=== PATIENT | female | born 1945 | race Caucasian/White ===

== ENCOUNTER 2018-04-30 15:01 | Outpatient (REF) | payer MEDICARE, BC, SELFPAY ==
[2018-04-30 21:20] LABS: Abs Immature Grans 0.12 k/cumm (0.0-0.09); Absolute Basophil Count 0.05 k/cumm (0.0-0.2); Absolute Eosinophil Count 0.36 k/cumm (0.0-0.7); Absolute Lymphocyte Count 2.19 k/cumm (1.2-3.4); Absolute Monocyte Count 0.64 k/cumm (0.11-0.7); Absolute Neutrophil Count 4.37 k/cumm (1.2-6.7); Basophils % 0.6; Eosinophils % 4.7; HCT 42.6 % (36.0-46.0); HGB 13.8 g/dL (12.0-15.5); Immature Grans % 1.6; Lymphocytes % 28.3; Mean Corp. HGB Concentration 32.4 g/dL (32.0-36.0); Mean Corpuscular Hemoglobin 31.7 pg (27.0-33.0); Mean Corpuscular Volume 97.9 fL (80-95); Mean Platelet Volume 10.2 fL (8.0-11.0); Monocytes % 8.3; Neutrophils % 56.5; Platelet Count 215 x1000/uL (130-400); RBC 4.35 m/cumm (4.00-5.20); RBC Distribution Width 14.4 % (11.7-14.6); White Blood Cell Count 7.73 k/cumm (4.4-10.8)
[2018-04-30 21:28] LABS: Anion Gap 9.4 mmol/L (3-11); BUN 23 mg/dL (7-18); CO2 27.6 mmol/L (21.0-32.0); CREATININE 0.99 mg/dL (0.55-1.02); Calcium 9.6 mg/dL (8.5-10.1); Chloride 103 mmol/L (98-107); Estimated GFR 54.83 (mL/min/1.73m2); Glucose 94 mg/dL (70-100); Potassium 4.8 mmol/L (3.5-5.1); Sodium 140 mmol/L (136-145)
== END 2018-04-30 15:21 ==
LOC: NCHCN 15:01
PROVIDERS: PCP Family Medicine; Visit Provider Specialist/Technologist Athletic Trainer
DX: E03.9 Hypothyroidism, unspecified (principal); Z51.81 Encounter for therapeutic drug level monitoring; Z01.818 Encounter for other preprocedural examination
CPT/HCPCS: 80048; 85025

== ENCOUNTER 2018-05-08 02:09 | Outpatient (CLI) | payer MEDICARE, BC, SELFPAY ==
--- NOTE | 2018-05-08 | PFT_ITS ---
PULMONARY FUNCTION TEST REPORT Please see scanned documents for further detail Patient - Shiloh Anderson DATE OF - 41 DATE OF SERVICE - May 08, 2018 REQUESTING PROVIDER - Mario Kline . INTERPRETATION OF STUDY Spirometry shows no evidence of obstructive airways disease. No bronchodilator response. LUNG VOLUMES - Lung volumes show no evidence of restriction. DIFFUSION CAPACITY- Normal. AIRWAY RESISTANCE - Normal. IMPRESSION Normal pulmonary function study. Clinical correlation recommended. For comparison purposes, this study was compared to previous one from 10/30/2015 and , the patient has a stable FVC and basically stable, mildly improved FEV1 of a total of 70 cc. Clinical correlation recommended. Luda Dutta M.D. ONEL/ DT - 05/11/2018 SEE SCANNED DOCUMENT IN THE EMR FOR DATA AND GRAPHS
[2018-05-08] MEDS: Albuterol HFA 18 GM 200 PUFF INH IH (09:57)
[2018-05-08] MEDS: Inhaler, Assist Device 1 EACH MC (09:58)
== END 2018-05-08 02:29 ==
PROVIDERS: PCP Family Medicine; Visit Provider Specialist/Technologist Athletic Trainer
DX: J44.9 Chronic obstructive pulmonary disease, unspecified (principal)
CPT/HCPCS: 94060; 94150; 94726; 94729

== ENCOUNTER 2018-05-12 15:56 | Outpatient (REF) | payer MEDICARE, BC, SELFPAY | END 2018-05-12 16:16 | LOC: NCHCN 15:56 | PROVIDERS: PCP Family Medicine; Visit Provider Family Medicine | DX: L03.039 Cellulitis of unspecified toe (principal) | CPT/HCPCS: 87077; 87070; 87186; 87205 ==

== ENCOUNTER 2018-10-01 10:30 | Outpatient (CLI) | payer MEDICARE, BC, SELFPAY ==
[2018-10-01 13:25] LABS: Iron 67 ug/dL (50-175); Total Iron Binding Capacity 365 ug/dL (250-450); Transferrin Sat 18 % (15-50)
[2018-10-01 13:38] LABS: ALT 37 U/L (12-78); AST 31 U/L (15-37); Alkaline Phosphatase 101 U/L (46-116); Anion Gap 7.3 mmol/L (3-11); BUN 23 mg/dL (7-18); Bilirubin, Total 0.4 mg/dL (0.2-1.0); CO2 30.7 mmol/L (21.0-32.0); CREATININE 1.02 mg/dL (0.55-1.02); Calcium 9.6 mg/dL (8.5-10.1); Chloride 102 mmol/L (98-107); Estimated GFR 52.83 (mL/min/1.73m2); Ferritin 69 ng/mL (8-388); Glucose 92 mg/dL (70-100); Potassium 4.6 mmol/L (3.5-5.1); Sodium 140 mmol/L (136-145); TSH 2.52 uIU/mL (0.358-3.74); Total Protein 7.4 g/dL (6.4-8.2)
[2018-10-01 13:48] LABS: Bilirubin, Direct 0.09 mg/dL (0.00-0.20)
[2018-10-02 14:13] LABS: FREE T4 1.17 ng/dL (0.76-1.46)
== END 2018-10-01 10:50 ==
PROVIDERS: PCP Family Medicine; Visit Provider Internal Medicine
DX: G47.61 Periodic limb movement disorder (principal); E03.9 Hypothyroidism, unspecified; D64.9 Anemia, unspecified
CPT/HCPCS: 36415; 80048; 80076; 82728; 83540; 83550; 84439; 84443

== ENCOUNTER 2018-10-23 00:55 | Outpatient (CLI) | payer MEDICARE, BC, SELFPAY ==
--- NOTE | 2018-10-23 13:45 | DI.CTLCSR_ITS ---
SYMPTOMS/DIAGNOSIS: TOBACCO USE, F17.20, Z72.0 CT SCAN OF THE CHEST: CT scan of the chest was performed according to the lung cancer screening protocol. Comparison examination is 10/22/17. There is artifact from the patient's left shoulder replacement. There is atherosclerosis of the thoracic aorta. No aneurysmal dilatation is seen. The heart size is within normal limits. Coronary artery calcifications are present. No significant thoracic adenopathy is seen on this noncontrast examination. No pleural effusion or pneumothorax is identified. No pulmonary nodules are seen. No focal consolidating infiltrates are present. The tracheobronchial tree is unremarkable. Chronic changes are seen in the thoracic spine. 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 IMPRESSION: No pulmonary nodules. Lung-RAD Category: 1- Negative Lung-RAD Management of Findings: Continue annual LDCT screening in 12 months
== END 2018-10-23 01:15 ==
PROVIDERS: PCP Family Medicine; Visit Provider Internal Medicine
DX: Z87.891 Personal history of nicotine dependence (principal); Z12.2 Encounter for screening for malignant neoplasm of respiratory organs
CPT/HCPCS: G0297

== ENCOUNTER 2019-03-12 15:19 | Outpatient (REF) | payer MEDICARE, BC, SELFPAY ==
[2019-03-12 19:11] LABS: HCT 45.6 % (36.0-46.0); HGB 14.7 g/dL (12.0-15.5); Mean Corp. HGB Concentration 32.2 g/dL (32.0-36.0); Mean Corpuscular Hemoglobin 31.1 pg (27.0-33.0); Mean Corpuscular Volume 96.6 fL (80-95); Mean Platelet Volume 10.3 fL (8.0-11.0); Platelet Count 262 x1000/uL (130-400); RBC 4.72 m/cumm (4.00-5.20); RBC Distribution Width 14.3 % (11.7-14.6); White Blood Cell Count 7.18 k/cumm (4.4-10.8)
[2019-03-12 19:28] LABS: ALT 60 U/L (12-78); AST 58 U/L (15-37); Alkaline Phosphatase 93 U/L (46-116); BUN 18 mg/dL (7-18); Bilirubin, Total 0.5 mg/dL (0.2-1.0); CREATININE 1.26 mg/dL (0.55-1.02); Calcium 9.4 mg/dL (8.5-10.1); Chloride 102 mmol/L (98-107); Glucose 93 mg/dL (70-100); Potassium 4.6 mmol/L (3.5-5.1); Sodium 138 mmol/L (136-145); TSH (W/Ref FT4) 2.15 uIU/mL (0.36-3.74); Total Protein 7.7 g/dL (6.4-8.2)
[2019-03-12 19:39] LABS: Bacteria Negative HPF (Negative); Crystals Rare Calcium Oxalate HPF (Negative); Epithelial Cells Negative HPF (Negative); Mucus Negative (Negative); RBC 0-2 (0-2); WBC 0-2 HPF (0-5)
[2019-03-12 19:41] LABS: C & S Indicated? No
== END 2019-03-12 15:39 ==
LOC: NCHCN 15:19
PROVIDERS: PCP Family Medicine; Visit Provider Specialist/Technologist Athletic Trainer
DX: E03.9 Hypothyroidism, unspecified (principal); I10 Essential (primary) hypertension; Z51.81 Encounter for therapeutic drug level monitoring; R35.0 Frequency of micturition
CPT/HCPCS: 80053; 85027; 81015; 84443

== ENCOUNTER → 2019-04-02 11:13 | Outpatient (BNVA) | payer MEDICARE, BC, SELFPAY | PROVIDERS: PCP Family Medicine; Visit Provider Urology | DX: N39.0 Urinary tract infection, site not specified (principal); N39.46 Mixed incontinence; I12.9 Hypertensive chronic kidney disease with stage 1 through stage 4 chronic kidney disease, or unspecified chronic kidney disease; N18.3 Chronic kidney disease, stage 3 (moderate); J44.9 Chronic obstructive pulmonary disease, unspecified; F17.210 Nicotine dependence, cigarettes, uncomplicated | CPT/HCPCS: 99214 ==

== ENCOUNTER 2019-07-04 10:37 | Outpatient (REF) | payer MEDICARE, BC, SELFPAY ==
[2019-07-04 11:23] LABS: Abs Immature Grans 0.05 k/cumm (0.0-0.09); Absolute Basophil Count 0.02 k/cumm (0.0-0.2); Absolute Eosinophil Count 0.22 k/cumm (0.0-0.7); Absolute Lymphocyte Count 1.51 k/cumm (1.2-3.4); Absolute Monocyte Count 0.61 k/cumm (0.11-0.7); Absolute Neutrophil Count 3.46 k/cumm (1.2-6.7); Basophils % 0.3; Eosinophils % 3.7; HCT 35.6 % (36.0-46.0); HGB 11.4 g/dL (12.0-15.5); Immature Grans % 0.9; Lymphocytes % 25.7; Mean Corpuscular Hemoglobin 31.4 pg (27.0-33.0); Mean Corpuscular Volume 98.1 fL (80-95); Mean Platelet Volume 9.3 fL (8.0-11.0); Monocytes % 10.4; Platelet Count 275 x1000/uL (130-400); RBC 3.63 m/cumm (4.00-5.20); RBC Distribution Width 13.8 % (11.7-14.6); White Blood Cell Count 5.87 k/cumm (4.4-10.8)
[2019-07-04 11:35] LABS: ALT 42 U/L (14-59); AST 55 U/L (15-37); Albumin 3.3 g/dL (3.4-5.0); Alkaline Phosphatase 61 U/L (46-116); BUN 18 mg/dL (7-18); Bilirubin, Total 0.6 mg/dL (0.2-1.0); C-Reactive Protein 8.82 mg/dL (0.0-0.3); Calcium 9.2 mg/dL (8.5-10.1); Chloride 102 mmol/L (98-107); Estimated GFR 54.05 (mL/min/1.73m2); Glucose 172 mg/dL (74-106); Potassium 4.2 mmol/L (3.5-5.1); Sodium 137 mmol/L (136-145); Total Protein 6.9 g/dL (6.4-8.2)
== END 2019-07-04 10:57 ==
LOC: LBN 10:37
PROVIDERS: PCP Family Medicine; Visit Provider Nurse Practitioner Adult Health
DX: D50.9 Iron deficiency anemia, unspecified (principal); Z47.1 Aftercare following joint replacement surgery
CPT/HCPCS: 80053; 85025; 86140

== ENCOUNTER 2019-08-21 14:08 | Emergency (ER) | payer MEDICARE, BC, SELFPAY ==
[2019-08-21 14:15] VITALS: BP 156/50; PULSE 80; RESP 16; TEMP 36.7; O2SAT 95
[2019-08-21 15:44] LABS: Abs Immature Grans 0.03 k/cumm (0.0-0.09); Absolute Basophil Count 0.05 k/cumm (0.0-0.2); Absolute Eosinophil Count 0.19 k/cumm (0.0-0.7); Absolute Lymphocyte Count 2.21 k/cumm (1.2-3.4); Absolute Monocyte Count 0.44 k/cumm (0.11-0.7); Basophils % 0.8; Eosinophils % 3.2; HCT 39.3 % (36.0-46.0); HGB 12.3 g/dL (12.0-15.5); Immature Grans % 0.5 %; Lymphocytes % 36.7; Mean Corp. HGB Concentration 31.3 g/dL (32.0-36.0); Mean Corpuscular Hemoglobin 30.2 pg (27.0-33.0); Mean Corpuscular Volume 96.6 fL (80-95); Mean Platelet Volume 9.2 fL (8.0-11.0); Monocytes % 7.3; Neutrophils % 51.5; Platelet Count 270 x1000/uL (130-400); RBC 4.07 m/cumm (4.00-5.20); RBC Distribution Width 14.6 % (11.7-14.6); White Blood Cell Count 6.02 k/cumm (4.4-10.8)
[2019-08-21 15:55] LABS: ALT 33 U/L (14-59); AST 23 U/L (15-37); Albumin 3.4 g/dL (3.4-5.0); Alkaline Phosphatase 87 U/L (46-116); Anion Gap 7.9 mmol/L (3-11); BUN 21 mg/dL (7-18); Bilirubin, Total 0.3 mg/dL (0.2-1.0); CO2 27.1 mmol/L (21.0-32.0); CREATININE 0.97 mg/dL (0.55-1.02); Calcium 8.9 mg/dL (8.5-10.1); Chloride 103 mmol/L (98-107); Estimated GFR 55.83 (mL/min/1.73m2); Glucose 103 mg/dL (74-106); Potassium 4.4 mmol/L (3.5-5.1); Sodium 138 mmol/L (136-145); Total Protein 7.2 g/dL (6.4-8.2)
[2019-08-21 15:57] LABS: C-Reactive Protein 1.98 mg/dL (0.0-0.3)
--- NOTE | 2019-08-21 16:01 | W.ED.GENAD ---
Discharge Plan Disposition Patient Disposition: HOME Condition: Stable Discharge Details Chief Complaint: Cellulitis Clinical Impression: Postoperative pain of left knee Primary Care Provider: Wilma Nance V ED Provider: Scottie Sharpe Home Meds and New Rx's Prescriptions: Continued losartan 25 mg tablet 25 mg PO DAILY RF: 0 bupropion HCl [Wellbutrin SR] 100 mg tablet sustained-release 12 hr 100 mg PO BID RF: 0 fluoxetine [Prozac] 20 mg capsule 20 mg PO BID RF: 0 estradiol [Estrace] 0.01 % (0.1 mg/gram) cream 2 g VG twice weekly Qty: 1 RF: 12 multivitamin [Daily-Wayne] 1 EACH tablet 1 ea PO DAILY RF: 0 folic acid 1 MG tablet 1 mg PO DAILY RF: 0 fluticasone propionate [Flonase Allergy Relief] 9.9 ML spray,suspension 9.9 ml NS DAILY RF: 0 levothyroxine 175 MCG tablet 175 mcg PO DIRECTED RF: 0 Folgard 1 EACH tablet 1 tab PO DAILY RF: 0 gabapentin 600 MG tablet 1,800 mg PO HS RF: 0 albuterol sulfate [ProAir HFA] 8.5 GM HFA aerosol inhaler 2 puff Inhalation DIRECTED PRNRF: 0 oxycodone-acetaminophen 1 EACH tablet 0 - 1 tab PO QID RF: 0 nystatin 60 GM powder 0 gm Topical BID RF: 0 Discharge Instructions Instructions: Knee Pain (ED) Additional Instructions: Remove Arcenio bandage at bedtime. May use well up and out of bed for compression and stability. I discussed your case with Dr. Sewell this evening. He requested the laboratory testing that you had performed. He will see you in the [facility] office on Friday. Please call the office Friday morning for an appointment time. Return to the emergency department for any acute concerns. Discharge Data Discharge Date/Time-TO BE ENTERED AT DEPARTURE: 08/21/19 16:12 Medical Decision Making 74-year-old female whose approximately 6 weeks status post left knee total arthroplasty with Dr. Israel at the [facility]. She states she had a postoperative infection it was treated with Bactrim and Keflex. She arrives with a concern for recurrent left knee infection. She has not had a fever but has developed warmth and some mild pain. Patient has an unremarkable CBC, her white count is 6.0, hematocrit 39, platelets 270. Chemistries unremarkable and CRP is 1.9. I discussed the case with Dr. Israel. He said he felt this was likely normal healing and unless patient had impressively elevated inflammatory markers would opt not to treat with antibiotics but rather will see her in the office for short-term follow-up on Friday. Discussed the finding with the patient and she will follow-up with the [facility] on Friday. HPI General Mode of arrival: ambulatory. Date/Time Provider Initiated Documentation: 08/21/19 14:08. Limitations to Documentation: no limitations. Information obtained by: patient. History of Present Illness 74 year old F presents to the emergency department with the chief complaint of Left knee pain and redness., described as similar to prior episodes, and is localized to the left and lower extremity. Patient reports no radiation. Patient started experiencing this hour(s) and it has been constant. No relieving factors improve symptom(s), No exacerbating factors reported . Patient notes denies fever/chills. Related Data Home Medications Medication Instructions Recorded Confirmed levothyroxine 175 mcg PO DIRECTED 09/17/14 08/21/19 Folgard 1 tab PO DAILY 01/26/15 08/21/19 albuterol sulfate [ProAir HFA] 2 puff INHALATION DIRECTED PRN 03/13/16 08/21/19 gabapentin 1,800 mg PO HS 03/13/16 08/21/19 oxycodone-acetaminophen 0 - 1 tab PO QID 03/13/16 08/21/19 nystatin 0 gm TOPICAL BID 01/10/17 08/21/19 fluticasone propionate [Flonase 9.9 ml NS DAILY 08/15/17 08/21/19 Allergy Relief] folic acid 1 mg PO DAILY tab-cap 08/15/17 08/21/19 multivitamin [Daily-Wayne] 1 ea PO DAILY 08/15/17 08/21/19 bupropion HCl 100 mg tablet,12 hr 100 mg PO BID 04/02/19 08/21/19 sustained-release estradiol 2 g VG twice weekly #1 tube 04/02/19 08/21/19 fluoxetine 20 mg capsule 20 mg PO BID 04/02/19 08/21/19 losartan 25 mg tablet 25 mg PO DAILY 04/02/19 08/21/19 Previous Rx's Medication Instructions Recorded nystatin 0 gm TOPICAL BID 01/10/17 estradiol 2 g VG twice weekly #1 tube 04/02/19 Allergies Allergy/AdvReac Type Severity Reaction Status Date / Time No Known Allergies Allergy Unverified 08/21/19 14:17 General Stated Complaint: Cellulitis SACHI: 3 Review of Systems Narrative: States she had a infection postoperatively. She is otherwise been well. 6 systems reviewed and otherwise negative. [facility] Medical History Allergic rhinitis Bilateral cataracts Cervicalgia CKD (chronic kidney disease) Colonic polyp COPD (chronic obstructive pulmonary disease) Diverticulosis DJD (degenerative joint disease) Fibromyalgia Foot pain Hamstring tendonitis HTN (hypertension) Hypothyroidism Iritis Lumbar stenosis Major depression Mixed stress and urge urinary incontinence (Acute) Mobitz II Obesity SUGEY (obstructive sleep apnea) Rotator cuff syndrome Spinal stenosis Tobacco use Trigger finger Urinary incontinence Social History Smoking/Tobacco Use Status: Current every day Alcohol Intake: current Alcohol Intake frequency: 3 or more drinks per day Drug use: Never Do you feel safe in your relationship?: Yes Exam Narrative Exam Narrative: GEN: awake, alert, oriented 3. Pleasant, well groomed, interactive. HEAD: Normocephalic, atraumatic ENT: Mucous membranes moist, oropharynx unremarkable, External ear exam unremarkable EYES: PERRL, EOMI NECK: Full ROM, no JIMMIE, no menigismus CHEST/RESP: Nontender, clear to auscultation bilateral, no wheeze/rhonchi/rales CARDIOVASCULAR: RRR, no murmur, rub vanessa. 2+ Rad pulse bilateral ABDOMEN: Soft, nontender, no mass. +Bowel sounds EXT: Bilateral healing surgical incisions of the anterior knees. Both knees have full range of motion. The left knee is slightly erythematous and warm to the touch but not particularly tender. Neuro: Grossly normal neurologic exam, conversant, interactive. Psych: Speech fluent, thoughts congruent, affect normal Course Vital Signs Vital signs: Vital Signs Temperature 36.7 C 08/21/19 14:15 Pulse 80 08/21/19 14:15 Respiratory Rate 16 08/21/19 14:15 Blood Pressure 156/50 H 08/21/19 14:15 Pulse Oximetry 95 08/21/19 14:15 Temperature 36.7 C 08/21/19 14:15 Temperature Source Oral 08/21/19 14:15 Pulse 80 08/21/19 14:15 Respiratory Rate 16 08/21/19 14:15 Blood Pressure 156/50 H 08/21/19 14:15 Pulse Oximetry 95 08/21/19 14:15 Oxygen Delivery Method Room Air 08/21/19 14:15 Oxygen Flow Rate 0 08/21/19 14:15 Lab/Test Results Lab/Test Results: Laboratory Tests Range/Units 08/21/19 08/21/19 15:15 15:15 WBC (4.4-10.8) k/cumm 6.02 RBC (4.00-5.20) m/cumm 4.07 Hgb (12.0-15.5) g/dL 12.3 Hct (36.0-46.0) % 39.3 MCV (80-95) fL 96.6 H MCH (27.0-33.0) pg 30.2 MCHC (32.0-36.0) g/dL 31.3 L RDW (11.7-14.6) % 14.6 Plt Count (130-400) x1000/uL 270 MPV (8.0-11.0) fL 9.2 Immature Gran % % 0.5 Neutrophils % 51.5 Lymphocytes % 36.7 Monocytes % 7.3 Eosinophils % 3.2 Basophils % 0.8 Absolute Neutrophils (1.2-6.7) k/cumm 3.10 Absolute Lymphocytes (1.2-3.4) k/cumm 2.21 Absolute Monocytes (0.11-0.7) k/cumm 0.44 Absolute Eosinophils (0.0-0.7) k/cumm 0.19 Absolute Basophils (0.0-0.2) k/cumm 0.05 Sodium (136-145) mmol/L 138 Potassium (3.5-5.1) mmol/L 4.4 Chloride (98-107) mmol/L 103 Carbon Dioxide (21.0-32.0) mmol/L 27.1 Anion Gap (3-11) mmol/L 7.9 BUN (7-18) mg/dL 21 H Creatinine (0.55-1.02) mg/dL 0.97 Estimated GFR/1.73 m2 (mL/min/1.73m2) 55.83 Glucose (74-106) mg/dL 103 Calcium (8.5-10.1) mg/dL 8.9 Total Bilirubin (0.2-1.0) mg/dL 0.3 AST (15-37) U/L 23 ALT (14-59) U/L 33 Alkaline Phosphatase (46-116) U/L 87 C-Reactive Protein (0.0-0.3) mg/dL 1.98 H Total Protein (6.4-8.2) g/dL 7.2 Albumin (3.4-5.0) g/dL 3.4
== END 2019-08-21 16:12 | disposition home or self-care (01) ==
PROVIDERS: Emergency Provider Emergency Medicine; PCP Family Medicine
DX: M25.562 Pain in left knee (principal); G89.18 Other acute postprocedural pain; Z96.652 Presence of left artificial knee joint; I12.9 Hypertensive chronic kidney disease with stage 1 through stage 4 chronic kidney disease, or unspecified chronic kidney disease; N18.9 Chronic kidney disease, unspecified; J44.9 Chronic obstructive pulmonary disease, unspecified; F17.210 Nicotine dependence, cigarettes, uncomplicated
CPT/HCPCS: 36415; 80053; 99282; 85025; 86140

== ENCOUNTER 2019-11-23 14:33 | Outpatient (REF) | payer MEDICARE, BC, SELFPAY ==
[2019-11-23 19:51] LABS: Anion Gap 6.3 mmol/L (3-11); BUN 22 mg/dL (7-18); C-Reactive Protein 1.05 mg/dL (0.0-0.3); CO2 28.7 mmol/L (21.0-32.0); CREATININE 1.03 mg/dL (0.55-1.02); Calcium 9.5 mg/dL (8.5-10.1); Chloride 100 mmol/L (98-107); Creatine Kinase 167 U/L (26-192); Glucose 95 mg/dL (74-106); Potassium 4.9 mmol/L (3.5-5.1); Sodium 135 mmol/L (136-145); TSH (W/Ref FT4) 2.01 uIU/mL (0.36-3.74)
[2019-11-23 20:01] LABS: ESR 16 mm/hr (0-30); Hemoglobin A1C 5.9 % (3.8-5.6)
== END 2019-11-23 14:53 ==
LOC: NCHCN 14:33
PROVIDERS: PCP Family Medicine; Visit Provider Family Medicine
DX: M79.10 Myalgia, unspecified site (principal); G56.00 Carpal tunnel syndrome, unspecified upper limb; R73.09 Other abnormal glucose
CPT/HCPCS: 80048; 82550; 85652; 83036; 84443; 86140

== ENCOUNTER 2019-12-16 02:11 | Outpatient (CLI) | payer MEDICARE, BC, SELFPAY ==
--- NOTE | 2019-12-16 14:22 | DI.CTLCSR_ITS ---
EXAM: CT CHEST LUNG CANCER SCREEN CLINICAL HISTORY: The patient reportedly has a History of Smoking 30 pack years and presently smokes or has quit the past 15 years. TECHNIQUE: Imaging Protocol: Axial computed tomography images with coronal and sagittal reformatted images were created and reviewed COMPARISON: CT CT CHEST LUNG CANCER SCREEN from 10/23/2018 FINDINGS: Tracheobronchial tree: Patent where visualized. Mediastinum and Lesly: No dominant adenopathy or fluid collection. Pulmonary parenchyma: No consolidation or dominant measurable mass. No architectural distortion. Lung Nodules: None. Pleura: No effusion or pneumothorax. Heart: The heart is not dilated. Mild coronary artery calcification. No significant pericardial effu martin. Aorta: Thoracic aorta non-dilated.Atherosclerosis. Upper abdomen: Unremarkable. Bones: There is artifact from posterior spinal surgery in the lumbar spine. There is artifact from t he patient's left shoulder replacement. Soft Tissues: Unremarkable. IMPRESSION: No pulmonary nodules. Lung RADS Cat 1 - Negative: No nodules and definitely benign nodules Lung-RADS 1.0 CATEGORIES: Category 0 - Prior chest CT exam(s) being located for comparison. Category 1 - Annual screening in 12 months. No nodules or definitely benign nodules. Category 2 - Annual screening in 12 months. Benign appearance. Nodules with low likelihood of becomin g active cancer. Category 3 - 6-month follow-up. Probably benign. Short-term follow-up suggested. Nodules with low lik elihood of becoming active cancer. Category 4A - 3-month follow-up and CT/PET if >8 mm in size. Suspicious finding. Findings which requi re additional testing. Category 4B - Findings which require additional testing and tissue sampling. Suspicious finding. C Added to Any of the Above - History of prior lung cancer screening. S Added to Any of the Above - Significant unexpected other finding. RADIATION DOSE DELIVERED: 99.73mGy.cm Total DLP DATA REPOSITORY: All CT scans at this facility are submitted to the National Radiology Data Registry (NRDR) Dose Index Registry (DIR) with the [employer] (A[employer]). RADIATION OPTIMIZATION: All CT scans at this facility use at least one of these dose optimization te chniques: automated exposure control; mA and/or kV adjustment per patient size (includes targeted exa ms where dose is matched to clinical indication); or iterative reconstruction.
== END 2019-12-16 02:31 ==
PROVIDERS: PCP Family Medicine; Visit Provider Internal Medicine
DX: Z12.2 Encounter for screening for malignant neoplasm of respiratory organs (principal); F17.210 Nicotine dependence, cigarettes, uncomplicated
CPT/HCPCS: G0297

== ENCOUNTER → 2020-03-21 12:49 | Outpatient (BNVA) | payer MEDICARE, BC, SELFPAY | PROVIDERS: PCP Family Medicine; Referring Provider Family Medicine; Visit Provider Nurse Practitioner Adult Health | DX: G56.03 Carpal tunnel syndrome, bilateral upper limbs (principal); G56.22 Lesion of ulnar nerve, left upper limb; J44.9 Chronic obstructive pulmonary disease, unspecified; I12.9 Hypertensive chronic kidney disease with stage 1 through stage 4 chronic kidney disease, or unspecified chronic kidney disease; N18.9 Chronic kidney disease, unspecified; F17.200 Nicotine dependence, unspecified, uncomplicated | CPT/HCPCS: 95911; 99203; 99214 ==

== ENCOUNTER → 2020-06-05 10:25 | Outpatient (BNVA) | payer MEDICARE, BC, SELFPAY | PROVIDERS: PCP Family Medicine; Referring Provider Family Medicine; Visit Provider Nurse Practitioner Gerontology | DX: N39.46 Mixed incontinence (principal); I12.9 Hypertensive chronic kidney disease with stage 1 through stage 4 chronic kidney disease, or unspecified chronic kidney disease; N18.9 Chronic kidney disease, unspecified | CPT/HCPCS: 81003; 99213 ==

== ENCOUNTER 2020-07-04 14:09 | Emergency (ER) | payer MEDICARE, BC, SELFPAY ==
[2020-07-04 14:15] VITALS: BP 142/79; PULSE 74; RESP 20; TEMP 36.2; O2SAT 96
--- NOTE | 2020-07-04 14:15 | DI.RAD_ITS ---
EXAM: XR FOREARM RT CLINICAL HISTORY: fall, R/O Fracture TECHNIQUE: COMPARISON: CR XR WRIST RT COMPLETE from 07/04/2020 FINDINGS: Two views were obtained. There is fracture of the distal ulna involving the metaphyseal diaphyseal r egion with no displacement. No additional fracture seen. There are severe degenerative changes of t he wrist. IMPRESSION: RADIATION DOSE DELIVERED: Total DLP
--- NOTE | 2020-07-04 14:35 | ED.GENADUL_ITS ---
Discharge Plan Disposition Patient Disposition: HOME Condition: Stable Discharge Details Clinical Impression: Distal end of ulna fracture, closed Primary Care Provider: Wilma Nance V ED Provider: Tiesha Hart Home Meds and New Rx's Prescriptions: Continued estradiol [Estrace] 0.01 % (0.1 mg/gram) cream 2 g VG twice weekly Qty: 1 RF: 12 multivitamin [Daily-Wayne] 1 EACH tablet 1 ea PO DAILY RF: 0 folic acid 1 MG tablet 1 mg PO DAILY RF: 0 fluticasone propionate [Flonase Allergy Relief] 9.9 ML spray,suspension 9.9 ml NS DAILY RF: 0 cyclobenzaprine 10 mg tablet 10 mg PO TID RF: 0 celecoxib [Celebrex] 200 mg capsule 200 mg PO BID RF: 0 (DME) cane Device See Rx Instructions .ROUTE .MEDSUPPLY Qty: 1 RF: 0 ropinirole 1 mg tablet 1 mg PO QHS RF: 0 fentanyl 25 mcg/hr patch 72 hour 1 patch TD Q72H RF: 0 Narcan 4 mg/actuation spray,non-aerosol 4 mg LAWRENCE Q3M PRNRF: 0 losartan 25 mg tablet 50 mg PO DAILY RF: 0 levothyroxine 175 MCG tablet 175 mcg PO DIRECTED RF: 0 Folgard 1 EACH tablet 1 tab PO DAILY RF: 0 gabapentin 600 MG tablet 1,800 mg PO HS RF: 0 albuterol sulfate [ProAir HFA] 8.5 GM HFA aerosol inhaler 2 puff Inhalation DIRECTED PRNRF: 0 oxycodone-acetaminophen 1 EACH tablet 0 - 1 tab PO QID RF: 0 bupropion HCl 150 mg tablet sustained-release 12 hr 150 mg PO DAILY RF: 0 fluoxetine 20 mg capsule 20 mg PO DAILY RF: 0 nystatin 60 GM powder 0 gm Topical BID RF: 0 Discharge Instructions Instructions: Arm Fracture in Adults (ED) Additional Instructions: Wear splint as much as possible until follow-up with orthopedics. Rest, ice, compression, elevation. Follow-up with Ortho within the next 1 to 2 weeks. Please take Tylenol or Ibuprofen with food every 4-6 hours as needed for pain and swelling. Referrals: Danial Duran MD [ [facility] STAFF PHYSICIAN] - Medical Decision Making 74-year-old female presents to the ED with chief complaint of right forearm pain. Patient states that she and fell forward hitting her right forearm onto a 2 x 4. She did not hit her head no loss of consciousness, no neck or back pain. No other injuries. She does have recent surgery from carpal tunnel release if she has sutures in place to her right palm which wound is well approximated, no swelling, no redness or any injury to her surgical incision noted. CMS is intact distally to injury, no shoulder tenderness. Patient is alert and oriented x4. Patient does have a past medical history of obesity, restless legs, hypothyroidism, hypertension, first-degree AV block, degenerative joint disease, diverticulosis, chronic kidney disease, asthma. EXAM: XR WRIST RT COMPLETE CLINICAL HISTORY: s/p fall, fx forearm, r/o wrist fx TECHNIQUE: COMPARISON: No exams were available for comparison FINDINGS: Four views were obtained. There is a nondisplaced fracture of the distal ulna. There are severe degenerative changes at the greater multangular 1st metacarpal joint with marked loss of the cartilaginous joint space, subchondral sclerosis of the adjacent bones, assess subluxation of the base of the 1st metacarpal, and very prominent hypertrophic changes. Otherwise bony alignment of the carpus is unremarkable with no additional fracture seen Patient placed in a thumb spica splint and sling instructed to follow-up with orthopedics and placed on the follow-up list. Instructed on rest ice compression elevation. Patient verbalized understanding. HPI General Mode of arrival: ambulatory . Date/Time Provider Initiated Documentation: 07/04/20 14:10 . Limitations to Documentation: no limitations . Information obtained by: patient . HPI Narrative: 74-year-old female presents to the ED with chief complaint of right forearm pain. Patient states that she and fell forward hitting her right forearm onto a 2 x 4. She did not hit her head no loss of consciousness, no neck or back pain. No other injuries. She does have recent surgery from carpal tunnel release if she has sutures in place to her right palm which wound is well approximated, no swelling, no redness or any injury to her surgical incision noted. CMS is intact distally to injury, no shoulder tenderness. Patient is alert and oriented x4. Patient does have a past medical history of obesity, restless legs, hypothyroidism, hypertension, first-degree AV block, degenerative joint disease, diverticulosis, chronic kidney disease, asthma. Related Data Home Medications Medication Instructions Recorded Confirmed levothyroxine 175 mcg PO DIRECTED 09/17/14 07/04/20 Folgard 1 tab PO DAILY 01/26/15 07/04/20 albuterol sulfate [ProAir HFA] 2 puff INHALATION DIRECTED PRN 03/13/16 07/04/20 gabapentin 1,800 mg PO HS 03/13/16 07/04/20 oxycodone-acetaminophen 0 - 1 tab PO QID 03/13/16 07/04/20 nystatin 0 gm TOPICAL BID 01/10/17 07/04/20 fluticasone propionate [Flonase 9.9 ml NS DAILY 08/15/17 07/04/20 Allergy Relief] folic acid 1 mg PO DAILY tab-cap 08/15/17 07/04/20 multivitamin [Daily-Wayne] 1 ea PO DAILY 08/15/17 07/04/20 estradiol 2 g VG twice weekly #1 tube 04/02/19 07/04/20 cane #1 each 02/24/20 06/05/20 celecoxib 200 mg capsule 200 mg PO BID 02/24/20 07/04/20 cyclobenzaprine 10 mg tablet 10 mg PO TID 02/24/20 07/04/20 fentanyl 25 mcg/hr transdermal 1 patch TD Q72H 02/24/20 07/04/20 patch naloxone 4 mg/actuation nasal spray 4 mg LAWRENCE Q3M PRN 02/24/20 07/04/20 ropinirole 1 mg tablet 1 mg PO QHS 02/24/20 07/04/20 losartan 25 mg tablet 50 mg PO DAILY tab 06/20/20 07/04/20 bupropion HCl 150 mg PO DAILY 07/04/20 07/04/20 fluoxetine 20 mg PO DAILY 07/04/20 07/04/20 Previous Rx's Medication Instructions Recorded nystatin 0 gm TOPICAL BID 01/10/17 estradiol 2 g VG twice weekly #1 tube 04/02/19 cane #1 each 02/24/20 Allergies Allergy/AdvReac Type Severity Reaction Status Date / Time No Known Allergies Allergy Unverified 07/04/20 14:20 General Stated Complaint: Orthopedic SACHI: 4 Review of Systems Narrative: Constitutional: Negative for weight loss, alert and oriented, well groomed, normal body habitus, appears comfortable. HEENT: Denies trauma, headaches, blurry vision, nasal discharge, sore throat, trouble swallowing. Chest: Denies chest pain, palpitations, irregular rhythm, hypertension. Respiratory: Denies Shortness of breath, cough, hemoptysis. GI: Denies abdominal pain, nausea, vomiting, diarrhea, constipation. : Denies dysuria, hematuria, flank pain, rectal bleeding. Musculoskeletal: Complaining of right forearm pain Neuro: Denies dizziness, blurry vision, weakness, syncope, headache or facial numbness. Hematologic: Denies easy bruising, intolerance to heat or cold, hair loss. [facility] Medical History Acquired pes planus Allergic rhinitis Anxiety 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 Asthma, moderate persistent BCC (basal cell carcinoma) Bilateral carpal tunnel syndrome Bilateral cataracts Body mass index (BMI) of 40.0-44.9 in adult Cervicalgia Chronic pain CKD (chronic kidney disease) Colonic polyp Coordination problem COPD (chronic obstructive pulmonary disease) Degenerative disc disease, lumbar Diverticulosis DJD (degenerative joint disease) Edema Fibromyalgia First degree AV block Foot pain Fusion of lumbosacral spine H/O urinary frequency Hamstring tendonitis History of prediabetes HTN (hypertension) Hx of colonic polyps Hypothyroidism Iritis Knee pain, bilateral Left hip pain Lumbar stenosis Major depression Mixed stress and urge urinary incontinence Mobitz II Myalgia Obesity Onychodystrophy SUGEY on CPAP Ovarian mass Peripheral neuropathy Restless leg syndrome Rotator cuff syndrome Sacroiliac joint pain Spinal stenosis Tobacco use Trigger finger Visual acuity reduced Social History Smoking/Tobacco Use Status: Current every day Smoking risk assessment performed?: Yes Alcohol Intake: current Alcohol Intake frequency: 3 or more drinks per day Drug use: Never Housing: house Number of Children: 9 Pets and animals: Yes Pets and animals: dog(s) and horse(s) What is your relationship status?: Panel score (0-1 are the most socially isolated patients): 0 What type of physical activity do you participate in: walking Seatbelt use: always Do you feel safe in your relationship?: Yes Exam Narrative Exam Narrative: Constitutional: Alert and oriented x3. Appears stated age. Normal body habitus. Head: Normocephalic, no trauma. Eyes: Pupils PERRLA, Red reflex noted, EOM's intact. Eyelids symmetrical without lesions, discharge, or swelling. ENT: Bilateral TM's WNL, External ear normal to inspection, no mastoid TTP, swelling, or erythema, Nasal turbinates WNL, no nasal discharge. Normal dentition, Posterior pharynx WNL, no exudate. Chest: RRR, Normal S1, S2, distal pulses intact. Resp: Lungs clear to auscultation bilaterally, no wheezes, rales, or rhonchi. Musculoskeletal: Normal gait, does have tenderness palpation to the distal forearm and medial and lateral wrist. No obvious deformity noted. Radial pulses are intact. Skin: Capillary refill less than 2 sec. she does have a surgical incision site noted to her right palmar surface which is sutured no surrounding erythema or trauma noted to the incision. Neurologic: Cranial nerves II-XII intact. Alert and oriented x 3. DTR's intact. Hematologic/Lymphatic: No ecchymosis, no lymphadenopathy. Course Vital Signs Vital signs: Vital Signs Temperature 36.2 C L 07/04/20 14:15 Pulse 74 07/04/20 14:15 Respiratory Rate 20 07/04/20 14:15 Blood Pressure 142/79 H 07/04/20 14:15 Pulse Oximetry 96 07/04/20 14:15 Temperature 36.2 C L 07/04/20 14:15 Temperature Source Skin 07/04/20 14:15 Pulse 74 07/04/20 14:15 Respiratory Rate 20 07/04/20 14:15 Respiratory Effort Non-Labored 07/04/20 14:19 Blood Pressure 142/79 H 07/04/20 14:15 Blood Pressure Position Sitting 07/04/20 14:15 Pulse Oximetry 96 07/04/20 14:15 Oxygen Delivery Method Room Air 07/04/20 14:15 Oxygen Flow Rate 0 07/04/20 14:15 Pain Level 8 07/04/20 14:32
[2020-07-04 14:36] VITALS: BP 154/87; PULSE 63; RESP 18; TEMP 36.9
[2020-07-04] MEDS: oxyCODONE 5 mg/Acetaminophen 325 mg TAB 1 TAB PO (14:40)
--- NOTE | 2020-07-04 15:00 | DI.RAD_ITS ---
EXAM: XR WRIST RT COMPLETE CLINICAL HISTORY: s/p fall, fx forearm, r/o wrist fx TECHNIQUE: COMPARISON: No exams were available for comparison FINDINGS: Four views were obtained. There is a nondisplaced fracture of the distal ulna. There are severe degenerative changes at the greater multangular 1st metacarpal joint with marked los s of the cartilaginous joint space, subchondral sclerosis of the adjacent bones, assess subluxation o f the base of the 1st metacarpal, and very prominent hypertrophic changes. Otherwise bony alignment of the carpus is unremarkable with no additional fracture seen. IMPRESSION: RADIATION DOSE DELIVERED: Total DLP
[2020-07-04 16:03] VITALS: BP 150/86; PULSE 60; RESP 18; TEMP 36.9; O2SAT 96
== END 2020-07-04 15:58 | disposition home or self-care (01) ==
LOC: ER 15:39
PROVIDERS: Emergency Provider Registered Nurse Emergency; PCP Family Medicine
DX: S52.691A Other fracture of lower end of right ulna, initial encounter for closed fracture (principal); W01.198A Fall on same level from slipping, tripping and stumbling with subsequent striking against other object, initial encounter; I12.9 Hypertensive chronic kidney disease with stage 1 through stage 4 chronic kidney disease, or unspecified chronic kidney disease; N18.9 Chronic kidney disease, unspecified
CPT/HCPCS: 25560; 73090; 73110

== ENCOUNTER 2020-07-20 11:01 | Outpatient (CLI) | payer MEDICARE, BC, SELFPAY ==
--- NOTE | 2020-07-20 09:50 | DI.RAD_ITS ---
EXAM: XR WRIST RT LIMITED CLINICAL HISTORY: F/U FRACTURE. TECHNIQUE: 2D digital imaging was performed. COMPARISON: CR XR WRIST RT COMPLETE from 07/04/2020 FINDINGS: BONES: There has been no significant change in alignment of the fracture involving the distal ulna. No bony destructive lesion is seen. No new fracture or dislocation is present. JOINTS: Severe degenerative changes are again seen at the 1st CMC joint. SOFT TISSUE: Mild soft tissue swelling about the wrist persists. IMPRESSION: Stable distal right ulnar fracture. DATA REPOSITORY: RADIATION DOSE DELIVERED:
== END 2020-07-20 11:21 ==
PROVIDERS: PCP Family Medicine; Referring Provider Family Medicine; Visit Provider Student in an Organized Health Care Education/Training Program
DX: S52.691A Other fracture of lower end of right ulna, initial encounter for closed fracture (principal); S52.601G Unspecified fracture of lower end of right ulna, subsequent encounter for closed fracture with delayed healing; W01.198D Fall on same level from slipping, tripping and stumbling with subsequent striking against other object, subsequent encounter
CPT/HCPCS: 99214; 73100

== ENCOUNTER 2020-07-24 03:40 | Outpatient (CLI) | payer MEDICARE, BC, SELFPAY ==
[2020-07-25 16:49] LABS: COVID-19 RT-PCR UVMMC Result Negative (Negative)
== END 2020-07-24 04:00 ==
PROVIDERS: PCP Family Medicine; Visit Provider Student in an Organized Health Care Education/Training Program
DX: Z11.59 Encounter for screening for other viral diseases (principal); Z01.818 Encounter for other preprocedural examination
CPT/HCPCS: U0003

== ENCOUNTER 2020-07-24 14:54 | Day surgery (SDC) | payer MEDICARE, BC, SELFPAY | END 2020-07-24 15:14 | PROVIDERS: PCP Family Medicine; Visit Provider Student in an Organized Health Care Education/Training Program | DX: Z53.9 Procedure and treatment not carried out, unspecified reason (principal) ==

== ENCOUNTER 2020-07-27 06:24 | Day surgery (SDC) | payer MEDICARE, BC, SELFPAY ==
[2020-07-27] VITALS (11 sets, daily range): BP systolic 102–139; BP diastolic 61–90; PULSE 65–82; RESP 16–29; TEMP 36–36.5; O2SAT 94–96
--- NOTE | 2020-07-27 06:45 | DI.RAD_ITS ---
EXAM: XR FOREARM RT CLINICAL HISTORY: right ulna fracture. TECHNIQUE: 2D digital imaging was performed. COMPARISON: CR XR WRIST RT LIMITED from 07/20/2020 CR XR WRIST RT LIMITED from 07/20/2020 FINDINGS: Prosperous widened during open reduction internal fixation distal right ulnar fracture and images rev eal placement of a fixation plate secured by multiple screws and there 2 independent screws also evid ent at the fracture site. Total fluoroscopy time was 9 seconds. IMPRESSION: As above. DATA REPOSITORY: RADIATION DOSE DELIVERED:
--- NOTE | 2020-07-27 07:19 | PDOC.DSDIS_ITS ---
Discharge Plan Disposition Patient Disposition: HOME Condition: Good Discharge Details Reason For Visit: Right Distal Ulna Fracture Attending Provider: Danial Duran Primary Care Provider: Wilma Nance V Home Meds and New Rx's Prescriptions: New hydrocodone-acetaminophen 5-325 mg tablet 1 tab PO Q6H PRN PRN (Reason: pain) Qty: 10 RF: 0 acetaminophen 500 mg tablet 500 mg PO Q6H PRN PRN (Reason: pain) Qty: 60 RF: 3 Continued estradiol [Estrace] 0.01 % (0.1 mg/gram) cream 2 g VG twice weekly Qty: 1 RF: 12 multivitamin [Daily-Wayne] 1 EACH tablet 1 ea PO DAILY RF: 0 folic acid 1 MG tablet 1 mg PO DAILY RF: 0 fluticasone propionate [Flonase Allergy Relief] 9.9 ML spray,suspension 9.9 ml NS DAILY RF: 0 cyclobenzaprine 10 mg tablet 10 mg PO TID RF: 0 celecoxib [Celebrex] 200 mg capsule 200 mg PO BID RF: 0 (DME) cane Device See Rx Instructions .ROUTE .MEDSUPPLY Qty: 1 RF: 0 ropinirole 1 mg tablet 1 mg PO QHS RF: 0 fentanyl 25 mcg/hr patch 72 hour 1 patch TD Q72H RF: 0 Narcan 4 mg/actuation spray,non-aerosol 4 mg [place]WRENCE Q3M PRNRF: 0 losartan 25 mg tablet 50 mg PO DAILY RF: 0 levothyroxine 175 MCG tablet 175 mcg PO DIRECTED RF: 0 Folgard 1 EACH tablet 1 tab PO DAILY RF: 0 gabapentin 600 MG tablet 1,800 mg PO HS RF: 0 albuterol sulfate [ProAir HFA] 8.5 GM HFA aerosol inhaler 2 puff Inhalation DIRECTED PRNRF: 0 bupropion HCl 150 mg tablet sustained-release 12 hr 150 mg PO DAILY RF: 0 fluoxetine 20 mg capsule 20 mg PO DAILY RF: 0 nystatin 60 GM powder 0 gm Topical BID RF: 0 Discontinued oxycodone-acetaminophen 1 EACH tablet 0 - 1 tab PO QID RF: 0 Discharge Instructions Additional Instructions: Wrist Fracture Fixation Discharge Instructions Activity: You should keep the hand/wrist elevated as much as possible for the first few days. You may use the other fingers as tolerated but avoid trying to do too much too soon. You may perform light activities with the splint in place. Avoid heavy lifting or foreceful motions. Dressing/Cast: Your splint should stay in place at all times. Do NOT get it wet. You may loosen the SERGIO wrap if you feel it is too tight and then rewrap more loosely. Medications: - You should take Tylenol and Celebrex for baseline pain control. - You have been prescribed a stronger pain medication, Hydrocodone, for breakthrough pain. - You may apply ice over the wrist, just double bag so it doesn't get wet. Follow-up: 2 weeks Referrals: Danial Duran MD [ [facility] STAFF PHYSICIAN] - Activity:: Elevate Remove Dressings/Wound Care:: Do Not Remove Shower/Bathe:: Cover Activity:: No heavy lifting or use Equipment/Supplies:: Splint Diet:: As Tolerated Discharge Orders Discharge Orders: Discharge Order (Routine); Ordered 07/27/20 Ordered By: Maru Mortensen Discharge Data Discharge Physician: Danial Duran DS: Diagnosis Discharge Diagnosis (1) Distal end of ulna fracture, closed: Status: Acute
[2020-07-27] MEDS: Lactated Ringers 1,000 ML 80 ML IV (07:35)
[2020-07-27] MEDS: ceFAZolin 2 GM/50 ML BAG IVPB (07:47)
[2020-07-27] MEDS: Bupivacaine 0.5% Pres-Free 30 ML VIAL (08:11)
[2020-07-27] MEDS: EPINEPHrine 1 MG/ML AMP pres-free (08:12)
[2020-07-27] MEDS: fentaNYL 100 MCG/2 ML VIAL IVP ×3 (09:45→10:05)
[2020-07-27] MEDS: HYDROmorphone 2 MG/ML VIAL IVP ×2 (10:20→10:28)
[2020-07-27] MEDS: Normal Saline Flush 10 ML SYR IV (10:22)
[2020-07-27] MEDS: HYDROcodone 5/Acetaminophen 325 TAB PO (10:40)
--- NOTE | 2020-07-27 20:15 | ROE_ITS ---
Date of service: 07/27/20 Time of Service: 08:59 Operative Note Operative Note DATE OF PROCEDURE: 07/27/20 PRE-OP DIAGNOSIS: Right Distal Ulna Fracture POST-OP DIAGNOSIS: same PROCEDURE: Open Reduction and Internal Fixation of Right Distal Ulna SURGEON: Danial Duran STREETCAR OPERATOR: Maru Mortensen ANESTHESIA: GETA and regional ESTIMATED BLOOD LOSS: 10 PATHOLOGY: none sent TOURNIQUET TIME: 40 COMPLICATIONS: None Patient was transported to: PACU Patient's condition: stable Indications: Shiloh is a 75 year old female who I have seen for a distal ulna fracture. Given the instability, displacement, fracture pattern, and effect on daily function, I offered surgical fixation. I reviewed the risk of the procedure to include bleeding, infection co-pay, stiffness, damage to nerves and vessels, damage to muscles and tendons, malunion, nonunion, hardware prominence, tendon rupture, need for repeat procedures. Despite these risks, the patient elected to proceed. Findings: There is a distal ulna fracture which had a primary coronal split with some comminution. Bone quality was quite poor. The fractue was reduced and fixed with a Synthes 2.7 LC-DCP plate with 2 lag screws. Procedure Description: Shiloh was greeted in the preoperative holding area. The correct patient and site was confirmed and marked. The history and physical was updated. The consent was reviewed the patient and signed. The patient was taken to the operating room and placed in the supine position. All bony problems were well-padded. The right arm was placed onto a radiolucent hand table. A nonsterile tourniquet was placed high up on the arm. Prophylactic antibiotics in the form of cefazolin were administered. The right arm was prepped with ChloraPrep and draped in a standard fashion. A timeout was performed for safe surgery. The limb was then exsanguinated and the tourniquet was inflated to 250 mmHg. A standard longitudinal incision was made overlying the subcutaneous border of the ulna. Once down to the ulna esparza elevator was used to expose the fracture site and the ulna. There is some early callus formation which was removed with curette, rongeur, and elevator. This exposed the fracture site. The very distal aspect of the fracture traveled to the volar surface of the ulnar head and was not directly exposed. However, the fracture reduction was gauged by the ulnar and dorsal surfaces. Unfortunately, the bone quality was quite poor. There is very little cancellous bone remaining. The shell of the ulna was quite soft and with any manipulation with clamps was cracking. Therefore I had to manipulate the bone proximally and with very minimal clamps at the level of the fracture. Once I had an adequate reduction I held this with a K wire and then proceeded with lag screw fixation. I used 2.7 millimeter screws due to their bulk and the patient's relative noncompliance with immobilization protocols. These 2 screws which were placed with a lag technique by over drilling the near cortex, provided good reduction of the fracture site. The K wire was removed and the reduction was close to anatomic. There is a slight overlap of about 1 mm proximally which was deemed to be acceptable. I then placed a 2.7 mm LC-DCP plate over the dorsal aspect of the ulna. Positioning of the plate was challenging given the clamps to hold the plate distally or cracking the distal ulnar cortex. Therefore the it was held mostly by hand while a nonlocking screw was placed proximal into the better bone. This brought the plate down to the bone before finally tightened the plate was rotated to be square on the ulna as possible. The plate did run all the way to the very far extent of the ulna. I then placed locking screws proximally and distally. This was placed as a neutralization type plate. Range of motion was tested and showed full wrist flexion extension as well as pronation and supination. The tourniquet was released and there was no notable vascular injury. The fingers were warm and well-perfused. The fascia and periosteum overlying the distal ulna was reapproximated with a 0 Vicryl. The deep dermal layer was closed with a 2-0 Vicryl. The skin was closed with 4-0 nylon. The wound was dressed with Xeroform, 4 x 4's, web roll. A short arm splint was applied. At the end the case all counts are correct. Patient was transferred back to the PACU in stable condition.
== END 2020-07-27 11:46 | disposition home or self-care (01) ==
PROVIDERS: PCP Family Medicine; Visit Provider Student in an Organized Health Care Education/Training Program
PROC: (CPT 25545; principal; 2020-07-27 07:30)
DX: S52.601A Unspecified fracture of lower end of right ulna, initial encounter for closed fracture (principal); X58.XXXA Exposure to other specified factors, initial encounter; N18.9 Chronic kidney disease, unspecified; I12.9 Hypertensive chronic kidney disease with stage 1 through stage 4 chronic kidney disease, or unspecified chronic kidney disease; G47.33 Obstructive sleep apnea (adult) (pediatric); F17.210 Nicotine dependence, cigarettes, uncomplicated; Z91.19 Patient's noncompliance with other medical treatment and regimen
CPT/HCPCS: 25545; C1713; 76000; 73090; J0171; J0690; J1100; J2405; J2704; J3010

== ENCOUNTER → 2020-08-08 10:24 | Outpatient (BNVA) | payer MEDICARE, BC, SELFPAY | PROVIDERS: PCP Family Medicine; Referring Provider Family Medicine; Visit Provider Urology | DX: N39.46 Mixed incontinence (principal) | CPT/HCPCS: 51728; 51784; 51797; 81003; 99213 ==

== ENCOUNTER → 2020-08-10 11:31 | Outpatient (CLI) | payer MEDICARE, BC, SELFPAY ==
--- NOTE | 2020-08-10 11:15 | DI.RAD_ITS ---
EXAM: XR WRIST RT LIMITED CLINICAL HISTORY: f/u R ulna ORIF TECHNIQUE: COMPARISON: CR XR WRIST RT LIMITED from 07/20/2020 CR XR FOREARM RT from 07/27/2020 FINDINGS: Two views were obtained and show plate and screw fixation of the distal ulna. Alignment appears unch anged comparison with intraoperative films of July 27. IMPRESSION: RADIATION DOSE DELIVERED: Total DLP
== END ==
PROVIDERS: PCP Family Medicine; Referring Provider Family Medicine; Visit Provider Student in an Organized Health Care Education/Training Program
DX: S52.691A Other fracture of lower end of right ulna, initial encounter for closed fracture (principal)
CPT/HCPCS: 73100

== ENCOUNTER 2020-08-24 17:38 | Outpatient (REF) | payer MEDICARE, BC, SELFPAY ==
[2020-08-29 09:55] LABS: Fentanyl Interpretation Positive.; Fentanyl by LC-MS/MS 22.2 ng/mL; Norfentanyl by LC-MS/MS 61.1 ng/mL
== END 2020-08-24 17:58 ==
LOC: NCHCN 17:38
PROVIDERS: PCP Family Medicine; Visit Provider Family Medicine
DX: G89.29 Other chronic pain (principal); Z79.891 Long term (current) use of opiate analgesic
CPT/HCPCS: 80354

== ENCOUNTER → 2020-09-06 14:57 | Outpatient (BNVA) | payer MEDICARE, BC, SELFPAY | PROVIDERS: PCP Family Medicine; Referring Provider Family Medicine; Visit Provider Nurse Practitioner Gerontology | DX: E66.01 Morbid (severe) obesity due to excess calories (principal); N39.46 Mixed incontinence | CPT/HCPCS: 99214 ==

== ENCOUNTER 2020-09-08 10:50 | Outpatient (CLI) | payer MEDICARE, BC, SELFPAY ==
--- NOTE | 2020-09-08 10:20 | DI.RAD_ITS ---
EXAM: XR WRIST RT LIMITED INDICATION: f/u fracture. COMPARISON: CR XR WRIST RT LIMITED from 08/10/2020 TECHNIQUE: 2D digital imaging was performed. FINDINGS: A fixation plate is again noted along the distal ulna for fracture fixation. There is has been marco nued healing of the fracture. The alignment is unchanged. Severe degenerative changes at the 1st ca rpal metacarpal joint are again demonstrated. DATA REPOSITORY: RADIATION DOSE DELIVERED:
== END 2020-09-08 10:51 | disposition home or self-care (01) ==
LOC: DIORS 10:51
PROVIDERS: PCP Family Medicine; Referring Provider Family Medicine; Visit Provider Physician Assistant
DX: S52.691A Other fracture of lower end of right ulna, initial encounter for closed fracture (principal); M18.11 Unilateral primary osteoarthritis of first carpometacarpal joint, right hand; S52.601G Unspecified fracture of lower end of right ulna, subsequent encounter for closed fracture with delayed healing; X58.XXXD Exposure to other specified factors, subsequent encounter; Z98.890 Other specified postprocedural states
CPT/HCPCS: 73100

== ENCOUNTER 2020-10-12 09:28 | Outpatient (CLI) | payer MEDICARE, BC, SELFPAY ==
--- NOTE | 2020-10-12 09:15 | DI.RAD_ITS ---
EXAM: XR WRIST RT LIMITED CLINICAL HISTORY: follow up. TECHNIQUE: 2D digital imaging was performed. COMPARISON: CR XR WRIST RT LIMITED from 09/08/2020 FINDINGS: Again noted is fixation plate across the medial aspect of the distal ulna secured by multiple screws and there are 2 independent screws also noted. Fracture site appears healed. Mild negative ulnar va riance evident. There is some degenerative changes in the radiocarpal joint noted. There are advanc ed degenerative changes at the articulation between the thumb metacarpal and trapezium with element o f subluxation at this level. There are also multiple calcified structures around the 1st carpometaca rpal joint, commensurate with severe degenerative change. IMPRESSION: DATA REPOSITORY: RADIATION DOSE DELIVERED:
== END 2020-10-12 09:29 | disposition home or self-care (01) ==
LOC: DIORS 09:29
PROVIDERS: PCP Family Medicine; Referring Provider Family Medicine; Visit Provider Physician Assistant Surgical
DX: S52.691D Other fracture of lower end of right ulna, subsequent encounter for closed fracture with routine healing (principal); S52.601G Unspecified fracture of lower end of right ulna, subsequent encounter for closed fracture with delayed healing; X58.XXXD Exposure to other specified factors, subsequent encounter
CPT/HCPCS: 73100

== ENCOUNTER 2020-10-27 13:25 | Outpatient (REF) | payer MEDICARE, BC, SELFPAY ==
[2020-11-03 16:33] LABS: Fentanyl Interpretation Positive.; Fentanyl by LC-MS/MS 22.6 ng/mL; Norfentanyl by LC-MS/MS 88.9 ng/mL
== END 2020-10-27 13:26 | disposition home or self-care (01) ==
LOC: NCHCN 13:25
PROVIDERS: PCP Family Medicine; Visit Provider Family Medicine
DX: Z51.81 Encounter for therapeutic drug level monitoring (principal); Z79.891 Long term (current) use of opiate analgesic
CPT/HCPCS: 80354

== ENCOUNTER 2020-11-23 15:57 | Outpatient (REF) | payer MEDICARE, BC, SELFPAY ==
[2020-11-23 19:54] LABS: ALT 34 U/L (14-59); AST 26 U/L (15-37); Albumin 3.8 g/dL (3.4-5.0); Alkaline Phosphatase 86 U/L (46-116); Anion Gap 9.3 mmol/L (3-11); BUN 23 mg/dL (7-18); Bilirubin, Total 0.4 mg/dL (0.2-1.0); CO2 28.7 mmol/L (21.0-32.0); CREATININE 0.9 mg/dL (0.55-1.02); Calcium 9.7 mg/dL (8.5-10.1); Chloride 106 mmol/L (98-107); FREE T4 1.27 ng/dL (0.76-1.46); Glucose 91 mg/dL (74-106); Potassium 4.5 mmol/L (3.5-5.1); Sodium 144 mmol/L (136-145); Total Protein 7.1 g/dL (6.4-8.2)
[2020-11-23 20:13] LABS: Hemoglobin A1C 5.3 % (<5.7)
== END 2020-11-23 15:58 | disposition home or self-care (01) ==
LOC: NCHCN 15:57
PROVIDERS: PCP Family Medicine; Visit Provider Family Medicine
DX: R73.03 Prediabetes (principal); E03.9 Hypothyroidism, unspecified; Z72.0 Tobacco use
CPT/HCPCS: 80053; 83036; 84439

== ENCOUNTER → 2020-12-21 14:38 | Outpatient (BNVA) | payer MEDICARE, BC, SELFPAY | PROVIDERS: PCP Family Medicine; Referring Provider Family Medicine; Visit Provider Nurse Practitioner Gerontology | DX: N39.41 Urge incontinence (principal) | CPT/HCPCS: 99443 ==

== ENCOUNTER → 2020-12-29 03:18 | Outpatient (CLI) | payer MEDICARE, BC, SELFPAY ==
--- NOTE | 2020-12-29 11:50 | DI.MRI_ITS ---
Exam(s) MR LUMBAR SPINE WO EXAM: MR LUMBAR SPINE WO CLINICAL HISTORY: URINARY INCONTINENCE, R32,DEGENERATIVE DISC DISEASE,M51.36. TECHNIQUE: Multiplanar multisequence MRI of the Lumbar spine was performed. COMPARISON: MR MRI - LUMBAR SPINE WO CONTRAST from 07/07/2017 MR MRI - LUMBAR SPINE WO CONTRAST from 07/07/2017 FINDINGS: Bones: The last intervertebral disc space is designated the L5/S1 level for the numbering purpose of this examination. The vertebral body heights are well maintained. There is posterior spinal fusion from L4 through S1. Grade 1 spondylolisthesis of L5 on S1 is noted. There also appears to be grade 1 spondylolisthesis of L4 on L5. Degenerative endplate signal changes are present throughout the lumb ar spine. Cord: The conus tip ends at the T12 level. It is of normal size and signal intensity. T12-L1: No disc herniations or bulges are present. No central spinal canal or neural foraminal stenos is. L1-2: There is a mild diffuse disc bulge. No significant central spinal canal stenosis is seen there is moderate right and moderately severe left neural foraminal stenosis. L2-3: There is a diffuse disc bulge. There are hypertrophic changes of the facets. There is mild na rrowing of the central spinal canal. Moderately severe bilateral neural foraminal stenosis is seen, left greater than right. L3-4: There is artifact from the orthopedic hardware. Central spinal canal narrowing is noted. Mode rately severe bilateral neural foraminal narrowing is noted left greater than right. L4-5: There is artifact from the orthopedic surgery. There does appear to be narrowing seen in the c entral spinal canal. There also appears to be moderately severe bilateral neural foraminal narrowing . L5-S1: There is a diffuse disc bulge. Mild narrowing of the central spinal canal is noted. Evaluati on of the neural foramen shows moderate neural foraminal stenosis. This is somewhat compromised seco ndary to artifact from the orthopedic surgery. Soft tissues: The visualized SI joints and sacrum are well maintained. There is mild fatty atrophy of the paraspinal muscles. Bilateral renal cysts are again noted. IMPRESSION: 1. Interval posterior spinal surgery from L4 through S1. 2. Stable alignment of the lumbar spine. 3. Multilevel degenerative changes in the lumbar spine. Evaluation is limited in the lower lumbar sp ine secondary to the orthopedic hardware. There does however, appear to be multilevel central spinal canal and neural foraminal stenosis as described above. DATA REPOSITORY:
== END ==
PROVIDERS: PCP Family Medicine; Visit Provider Family Medicine
DX: M51.37 Other intervertebral disc degeneration, lumbosacral region (principal); R32 Unspecified urinary incontinence; Z98.890 Other specified postprocedural states; N28.1 Cyst of kidney, acquired
CPT/HCPCS: 72148

== ENCOUNTER 2021-01-18 17:30 | Outpatient (REF) | payer MEDICARE, BC, SELFPAY ==
[2021-01-18 19:33] LABS: HCT 42.4 % (36.0-46.0); HGB 13.7 g/dL (11.2-15.7); MCH 31.8 pg (27.0-33.0); MCHC 32.3 % (32.0-36.0); MCV 98.4 fL (80-95); Platelet Count 234 10^3/uL (130-400); RBC 4.31 10^6/uL (3.93-5.22); RDW 13.5 % (11.7-14.6); RDW-SD 49.9 fL; WBC 6.32 10^3/uL (4.4-10.8)
[2021-01-18 19:49] LABS: ESR 28 mm/hr (0-30)
[2021-01-18 20:09] LABS: Iron 79 ug/dL (50-170)
[2021-01-18 20:39] LABS: Ferritin 220 ng/mL (8-252); Vitamin B12 349 pg/mL (193-986)
== END 2021-01-18 17:31 | disposition home or self-care (01) ==
LOC: NCHCN 17:30
PROVIDERS: PCP Family Medicine; Visit Provider Family Medicine
DX: M79.10 Myalgia, unspecified site (principal); R27.0 Ataxia, unspecified; Z86.2 Personal history of diseases of the blood and blood-forming organs and certain disorders involving the immune mechanism
CPT/HCPCS: 85027; 85652; 82607; 82728; 83540; 86140

== ENCOUNTER → 2021-01-23 13:11 | Outpatient (BNVA) | payer MEDICARE, BC, SELFPAY | PROVIDERS: PCP Family Medicine; Referring Provider Family Medicine; Visit Provider Nurse Practitioner Gerontology | DX: N39.46 Mixed incontinence (principal); E66.01 Morbid (severe) obesity due to excess calories | CPT/HCPCS: 99214 ==

== ENCOUNTER 2021-03-15 01:22 | Outpatient (CLI) | payer MEDICARE, BC, SELFPAY ==
--- NOTE | 2021-03-15 16:10 | DI.CTLCSR_ITS ---
Exam(s) CT CHEST LUNG CANCER SCREEN EXAM: CT CHEST LUNG CANCER SCREEN CLINICAL HISTORY: Screening for lung cancer,CURRENT SMOKER, F17.210. TECHNIQUE: Imaging Protocol: Low Dose Technique CONTRAST MATERIAL: None COMPARISON: CT CT CHEST LUNG CANCER SCREEN from 12/16/2019 FINDINGS: CHEST: LUNGS: There are no ominous pulmonary nodules. There are no confluent infiltrates. No pleural effusi ons. MEDIASTINUM: There is no obvious hilar nor mediastinal adenopathy. CARDIAC: Heart size remains normal. Slight thickening of the anterior pericardium is again noted, ex hibiting maximum thickness 10 millimeters.Caliber of the thoracic aorta is within normal limits. OTHER: OSSEOUS: No significant osseous lesions.. IMPRESSION: 1. No significant pulmonary nodules. 2. No pleural effusions. No obvious intrathoracic adenopathy. 3. Lung RADS Cat 1 - Negative: No nodules and definitely benign nodules Lung-RADS 1.0 CATEGORIES: Category 0 - Prior chest CT exam(s) being located for comparison. Category 1 - Annual screening in 12 months. No nodules or definitely benign nodules. Category 2 - Annual screening in 12 months. Benign appearance. Nodules with low likelihood of becomin g active cancer. Category 3 - 6-month follow-up. Probably benign. Short-term follow-up suggested. Nodules with low lik elihood of becoming active cancer. Category 4A - 3-month follow-up and CT/PET if >8 mm in size. Suspicious finding. Findings which requi re additional testing. Category 4B - Findings which require additional testing and tissue sampling. Modifier S- Potentially clinically significant findings (non lung cancer) RADIATION DOSE DELIVERED: 85.29mGy.cm Total DLP 2.21mGy CTDIvol DATA REPOSITORY: All CT scans at this facility are submitted to the National Radiology Data Registry (NRDR) Dose Index Registry (DIR) with the [employer] ([employer]). RADIATION OPTIMIZATION: All CT scans at this facility use at least one of these dose optimization te chniques: automated exposure control; mA and/or kV adjustment per patient size (includes targeted exa ms where dose is matched to clinical indication); or iterative reconstruction.
== END 2021-03-15 01:42 ==
PROVIDERS: PCP Family Medicine; Visit Provider Student in an Organized Health Care Education/Training Program
DX: Z12.2 Encounter for screening for malignant neoplasm of respiratory organs (principal); F17.210 Nicotine dependence, cigarettes, uncomplicated
CPT/HCPCS: 71271

== ENCOUNTER → 2021-04-05 13:39 | Outpatient (BNVA) | payer MEDICARE, BC, SELFPAY | PROVIDERS: PCP Family Medicine; Referring Provider Family Medicine; Visit Provider Nurse Practitioner Gerontology | DX: N39.46 Mixed incontinence (principal); E66.01 Morbid (severe) obesity due to excess calories | CPT/HCPCS: 99214 ==

== ENCOUNTER 2021-04-17 16:01 | Outpatient (REF) | payer MEDICARE, BC, SELFPAY ==
[2021-04-17 20:24] LABS: Anion Gap 11.3 mmol/L (3-11); BUN 27 mg/dL (7-18); CO2 24.7 mmol/L (21.0-32.0); CREATININE 1.1 mg/dL (0.55-1.02); Calcium 9.6 mg/dL (8.5-10.1); Chloride 103 mmol/L (98-107); Estimated GFR 48.16 (mL/min/1.73m2); Glucose 83 mg/dL (74-106); Potassium 4.4 mmol/L (3.5-5.1); Sodium 139 mmol/L (136-145)
== END 2021-04-17 16:02 | disposition home or self-care (01) ==
LOC: NCHCN 16:01
PROVIDERS: PCP Family Medicine; Visit Provider Family Medicine
DX: I10 Essential (primary) hypertension (principal); Z00.00 Encounter for general adult medical examination without abnormal findings
CPT/HCPCS: 80048

== ENCOUNTER → 2021-05-17 10:38 | Outpatient (BNVA) | payer MEDICARE, BC, SELFPAY | PROVIDERS: PCP Family Medicine; Referring Provider Family Medicine; Visit Provider Nurse Practitioner Gerontology | DX: N39.46 Mixed incontinence (principal); R39.89 Other symptoms and signs involving the genitourinary system; E66.01 Morbid (severe) obesity due to excess calories | CPT/HCPCS: 81003; 99214 ==

== ENCOUNTER 2021-05-21 00:38 | Outpatient (CLI) | payer MEDICARE, BC, SELFPAY ==
--- NOTE | 2021-05-21 13:54 | DI.RAD_ITS ---
Exam(s) XR LUMBAR SPINE 1V ONLY EXAM: XR LUMBAR SPINE 1V ONLY CLINICAL HISTORY: H/O FUSION,F/U HARDWARE PLACEMENT,LUMBAR SPONDYLOSIS,M47.816. TECHNIQUE: 2D digital imaging was performed. COMPARISON: CR LUMBAR SPINE COMPLETE from 01/16/2015 FINDINGS: There has been interval tri level fusion surgery L4-L5-S1, comprised of posterior fusion bars, remova l of posterior osseous elements, and bilateral intrapedicular screws L4, L5, and S1 levels. Amount of anterolisthesis of L5 upon S1 is unchanged. Intra vertebral disc space divide ower at this level is noted. Advanced disc space narrowing evident. With respect of the intra pedicular screws, at the L4 level they do not reach appreciably into the ve rtebral bodies. Additional views recommended. IMPRESSION: DATA REPOSITORY: RADIATION DOSE DELIVERED:
== END 2021-05-21 00:58 ==
PROVIDERS: PCP Family Medicine; Visit Provider Physician Assistant Medical
DX: M47.816 Spondylosis without myelopathy or radiculopathy, lumbar region (principal); Z98.890 Other specified postprocedural states
CPT/HCPCS: 72020

== ENCOUNTER 2021-05-29 01:25 | Outpatient (CLI) | payer MEDICARE, BC, SELFPAY ==
--- NOTE | 2021-05-29 | DI.MRI_ITS ---
Exam(s) MR CERVICAL SPINE WO EXAM: MR CERVICAL SPINE WO CLINICAL HISTORY: LUMBAR SPONDYLOSIS M47.816 GAIT ABNORMALITY W/ NUMBNESS. TECHNIQUE: Multiplanar multisequence MRI was performed. COMPARISON: No exams were available for comparison FINDINGS: MR examination of the cervical spine was performed according to the usual protocol. Images obtained through the posterior fossa are unremarkable. There are prominent hypertrophic endplate changes facet degenerative changes throughout the cervical spine. At C2-3, the central spinal canal is fairly well maintained. No focal disc herniation. Neural sarah soledad are not well visualized but may be narrowed bilaterally. At C3-4, there is a moderate disc bulge. There is a probable small central disc herniation without s ignificant impingement. There is borderline central canal spinal stenosis. Neural foramina are not well visualized but probably narrowed bilaterally. At C4-5, there is a mild intervertebral disc bulge. There is narrowing of the neural foramina bilate rally. No central canal spinal stenosis or disc herniation. At C5-6, there is a mild central canal spinal stenosis. There is narrowing of the left lateral reces s secondary to prominent endplate and/or facet osteophytes. Neural foramina are narrowed bilaterally . No definite focal disc herniation. At C6-7, there is a mild central canal spinal stenosis with prominence of the disc osteophyte complex . No definite focal disc herniation. Neural foramina appear narrowed bilaterally. At C7-T1, there is no significant central canal stenosis. Neural foramina poorly seen but probably n arrowed. The spinal cord shows normal signal and normal diameter throughout. IMPRESSION: Severe hypertrophic degenerative changes of endplates and facet joints throughout the cervical region . Multilevel neural foraminal stenosis. Multilevel central canal spinal stenosis. Please see above discussion for findings at individual levels. DATA REPOSITORY:
== END 2021-05-29 01:45 ==
PROVIDERS: PCP Family Medicine; Visit Provider Physician Assistant Medical
DX: M47.812 Spondylosis without myelopathy or radiculopathy, cervical region (principal); M48.02 Spinal stenosis, cervical region
CPT/HCPCS: 72141

== ENCOUNTER → 2021-08-23 13:46 | Outpatient (BNVA) | payer MEDICARE, BC, SELFPAY | PROVIDERS: PCP Family Medicine; Referring Provider Family Medicine; Visit Provider Nurse Practitioner Gerontology | DX: N39.46 Mixed incontinence (principal) | CPT/HCPCS: 99442 ==

== ENCOUNTER → 2021-09-04 09:34 | Outpatient (BNVA) | payer MEDICARE, BC, SELFPAY | PROVIDERS: PCP Family Medicine; Referring Provider Family Medicine; Visit Provider Nurse Practitioner Gerontology | DX: N39.46 Mixed incontinence (principal); E66.01 Morbid (severe) obesity due to excess calories | CPT/HCPCS: 81003; 99214 ==

== ENCOUNTER 2022-01-11 14:18 | Emergency (ER) | payer MEDICARE, BC, SELFPAY ==
[2022-01-11 14:25] VITALS: BP 157/72; PULSE 71; TEMP 36.3; O2SAT 96
--- NOTE | 2022-01-11 14:30 | RT.EKG_ITS ---
APPROVED REPORT Exam: Resting ECG Reason for Exam: DYSPNEA Patient Location: E HR:62 bpm ECG Measurements Heart Rate 62 AXIS DE 301 P 61 QRSd 104 QRS 40 QT 410 T 54 QTc 418 Conclusion Sinus rhythm...normal P axis, V-rate 60- 99 Prolonged DE interval...DE >220, V-rate 50- 90
--- NOTE | 2022-01-11 14:45 | DI.RAD_ITS ---
Exam(s) XR CHEST 2V PA LATERAL EXAM: XR CHEST 2V PA LATERAL CLINICAL HISTORY: sob, swelling in legs, r/o chf TECHNIQUE: 2D digital imaging was performed. COMPARISON: CR CHEST 2 VIEWS PA,LAT from 01/09/[address] CHEST LUNG CANCER SCREEN from 03/15/2021 FINDINGS: The heart is not enlarged. The lungs are clear and well expanded. No pleural effusion seen. Mediastin al contours appear intact. IMPRESSION: Normal chest. RADIATION DOSE DELIVERED: Total DLP
--- NOTE | 2022-01-11 14:49 | ED.GENADUL_ITS ---
Discharge Plan Disposition Patient Disposition: HOME Condition: Improving Discharge Details Clinical Impression: Peripheral edema, Leg wound, left Primary Care Provider: Wilma Nance V ED Provider: Rayna Gale Home Meds and New Rx's Prescriptions: Continued estradiol [Estrace] 0.01 % (0.1 mg/gram) cream 2 g VG twice weekly Qty: 1 12RF cetirizine [Zyrtec] 10 mg tablet 10 mg PO DAILY PRN (DME) Oxygen Tank See Rx Instructions .ROUTE .MEDSUPPLY Qty: 1 Rx Instructions: As directed,2L of oxygen bled into BiPAP. Chantix Starting Month Box 0.5 mg (11)- 1 mg (42) tablets,dose pack See Rx Instructions PO PER PKG DIR Qty: 53 0RF Rx Instructions: PO PER PKG DIR varenicline [Chantix Continuing Month Box] 1 mg tablet 1 mg PO BID Qty: 56 3RF atenolol 25 mg tablet 12.5 mg PO DAILY oxycodone-acetaminophen [Percocet] 10-325 mg tablet 2 tab PO TID PRN oxybutynin chloride 5 mg tablet extended release 24hr 5 mg PO DAILY Qty: 90 1RF multivitamin [Daily-Wayne] 1 EACH tablet 1 ea PO DAILY folic acid 1 MG tablet 1 mg PO DAILY celecoxib [Celebrex] 200 mg capsule 200 mg PO BID (DME) cane Device See Rx Instructions .ROUTE .MEDSUPPLY Qty: 1 0RF Rx Instructions: As directed naloxone [Narcan] 4 mg/actuation spray,non-aerosol 4 mg LAWRENCE Q3M PRN Rx Instructions: spray 1 dose into ONE nostril; alternate nostrils w each dose until help arrives losartan 25 mg tablet 100 mg PO DAILY levothyroxine 175 MCG tablet 175 mcg PO DIRECTED Label Comments: daily Folgard 1 EACH tablet 1 tab PO DAILY albuterol sulfate [ProAir HFA] 8.5 GM HFA aerosol inhaler 2 puff Inhalation DIRECTED PRN Label Comments: prior to exercise gabapentin 600 mg tablet 300 mg PO TID bupropion HCl 150 mg tablet sustained-release 12 hr 150 mg PO DAILY fluoxetine 20 mg capsule 20 mg PO DAILY acetaminophen 500 mg tablet 500 mg PO Q6H PRN PRN (Reason: pain) Qty: 60 3RF Discharge Instructions Instructions: Wound Infection (ED), Acute Wound Care (ED), Leg Edema (ED) Additional Instructions: Your lab work, EKG and imaging today is reassuring and shows no evidence of acute concerning findings. You are being sent home with 3 tabs of 20 mg Lasix to take once daily for the ne xt 3 days starting tomorrow 01/12/22. You are also being sent home with a topical antibiotic ointment called Bactroban to apply to your leg wounds twice daily for the next week. For your leg swelling, it is recommended that you keep your legs elevated as much as possible, wear compression stockings and limit the amount of sodium in your diet as this can contribute to fluid retention. Follow-up with your primary care doctor in 1 week. Return to the emergency department with any worsening or new concerning symptoms. Discharge Data Discharge Physician: Rayna Gale Medical Decision Making 1500 -- 76-year-old female with a history of morbid obesity, COPD, asthma, CKD, fibromyalgia, hypothyroidism, obstructive sleep apnea on bipap, chronic back pain on chronic oxycodone and morphine presents with 2 wounds to her left lower extremity for 3 months, now increasing in size and draining clear liquid in addition to dyspnea on exertion and bilateral pedal edema for the last week. Vitals within normal limits. Patient appears comfortable and nontoxic. She has scattered wheezing throughout. She has bilateral lower extremity edema mostly extending from the distal lower extremities into the feet. She has 2 open wounds to her left leg which appear reassuring and without significant cellulitis and draining clear liquid. Do not see any indication for oral antibiotics and she may improve with topical mupirocin. Suspect dependent edema but also consider CHF, COPD exacerbation. Considering her age and history, will obtain screening labs, bilateral lower extremity leg ultrasound, chest x-ray and give Lasix, duoneb and IV solu-medrol. 1830 --labs and imaging reviewed. Normal white blood cell count at 6.72. Normal electrolytes. CRP reassuring at 0.57. BNP elevated at 1318. Troponin within normal limits. COVID-negative. Chest x-ray and bilateral leg ultrasound negative. Patient reassessed and she denied any improvement with neb treatment. We will hold on additional neb or oral steroids for home at this time. We will send with a prescription for diuretics to take over the next few days. She was advised to keep her legs elevated as much as possible, limit her sodium intake and to consider wearing compression stockings. For her left leg wounds, will treat with bactroban. Do not see an indication for oral antibiotics for her legs at this time. Advised to follow-up with her PCP next week for reevaluation. Usual and customary return precautions given prior to discharge. Medical Records Medical records reviewed: Yes I reviewed the patient's medical records. Imaging Data Radiologic Study: Radiologist's impression: XR CHEST 2V PA ? LATERAL CLINICAL HISTORY:? sob, swelling in legs, r/o chf TECHNIQUE:? 2D digital imaging was performed. COMPARISON:? CR CHEST 2 VIEWS PA,LAT from 01/09/[address] CHEST LUNG CANCER SCREEN from 03/15/2021 FINDINGS: The heart is not enlarged. The lungs are clear and well expanded. No pleural effusion seen. Mediastinal contours appear intact. IMPRESSION: Normal chest. US EXTREMITY VENOUS BI CLINICAL HISTORY: ? leg swelling, r/o dvt.? TECHNIQUE:? Ultrasound? performed using standard protocol. COMPARISON:? US RENAL ULTRASOUND(P) from 01/10/2017 FINDINGS: Duplex venous ultrasound was performed according to the usual protocol. The deep veins are freely compressible throughout and there is normal flow augmentation with manual calf compression. 2D and Doppler evaluation are unremarkable. IMPRESSION: No evidence of deep venous thrombosis of the right or left lower extremity. Lab Data Lab results reviewed: Yes I reviewed the patient's lab results. Labs: Laboratory Tests Range/Units 01/11/22 01/11/22 01/11/22 15:18 16:40 16:40 WBC (4.4-10.8) 10^3/uL 6.72 RBC (3.93-5.22) 10^6/uL 3.94 Hgb (11.2-15.7) g/dL 12.7 Hct (36.0-46.0) % 38.9 MCV (80-95) fL 99 H MCH (27.0-33.0) pg 32.2 MCHC (32.0-36.0) % 32.6 RDW (11.7-14.6) % 13.0 Plt Count (130-400) 10^3/uL 178 MPV (8.0-11.0) fL 9.9 Immature Gran % 0.3 Neutrophils % 46.2 Lymphocytes % 42.0 Monocytes % 7.3 Eosinophils % 3.3 Basophils % 0.9 Nucleated RBC % (0.0-0.3) % 0.0 Absolute Neutrophils (1.2-6.7) 10^3/uL 3.11 Absolute Lymphocytes (1.2-3.4) 10^3/uL 2.82 Absolute Monocytes (0.1-0.8) 10^3/uL 0.49 Absolute Eosinophils (0.0-0.7) 10^3/uL 0.22 Absolute Basophils (0.0-0.2) 10^3/uL 0.06 Sodium (136-145) mmol/L 143 Potassium (3.5-5.1) mmol/L 4.0 Chloride (98-107) mmol/L 107 Carbon Dioxide (21.0-32.0) mmol/L 27.3 Anion Gap (3-11) mmol/L 8.7 BUN (7-18) mg/dL 16 Creatinine (0.55-1.02) mg/dL 1.0 Estimated GFR/1.73 m2 (mL/min/1.73m2) 53.62 Glucose (74-106) mg/dL 91 Calcium (8.5-10.1) mg/dL 9.2 Magnesium (1.8-2.4) mg/dL 2.0 Total Bilirubin (0.2-1.0) mg/dL 0.4 AST (15-37) U/L 30 ALT (14-59) U/L 38 Alkaline Phosphatase (46-116) U/L 62 Troponin I (<or=60) ng/L 55 C-Reactive Protein (0.0-0.3) mg/dL 0.57 H NT-Pro-B Natriuret Pep (<300) pg/mL Total Protein (6.4-8.2) g/dL 7.1 Albumin (3.4-5.0) g/dL 3.6 COVID-19 Source Nasal/Nares SARS-CoV-2 (PCR) (Negative) Negative Range/Units 01/11/22 16:40 WBC (4.4-10.8) 10^3/uL RBC (3.93-5.22) 10^6/uL Hgb (11.2-15.7) g/dL Hct (36.0-46.0) % MCV (80-95) fL MCH (27.0-33.0) pg MCHC (32.0-36.0) % RDW (11.7-14.6) % Plt Count (130-400) 10^3/uL MPV (8.0-11.0) fL Immature Gran % Neutrophils % Lymphocytes % Monocytes % Eosinophils % Basophils % Nucleated RBC % (0.0-0.3) % Absolute Neutrophils (1.2-6.7) 10^3/uL Absolute Lymphocytes (1.2-3.4) 10^3/uL Absolute Monocytes (0.1-0.8) 10^3/uL Absolute Eosinophils (0.0-0.7) 10^3/uL Absolute Basophils (0.0-0.2) 10^3/uL Sodium (136-145) mmol/L Potassium (3.5-5.1) mmol/L Chloride (98-107) mmol/L Carbon Dioxide (21.0-32.0) mmol/L Anion Gap (3-11) mmol/L BUN (7-18) mg/dL Creatinine (0.55-1.02) mg/dL Estimated GFR/1.73 m2 (mL/min/1.73m2) Glucose (74-106) mg/dL Calcium (8.5-10.1) mg/dL Magnesium (1.8-2.4) mg/dL Total Bilirubin (0.2-1.0) mg/dL AST (15-37) U/L ALT (14-59) U/L Alkaline Phosphatase (46-116) U/L Troponin I (<or=60) ng/L C-Reactive Protein (0.0-0.3) mg/dL NT-Pro-B Natriuret Pep (<300) pg/mL 1318 H Total Protein (6.4-8.2) g/dL Albumin (3.4-5.0) g/dL COVID-19 Source SARS-CoV-2 (PCR) (Negative) ECG Data Attestation: I personally reviewed and interpreted this ECG (s) as follows: Interpretation: Rate of 62, sinus, no STEMI. HPI General Mode of arrival: ambulatory . Date/Time Provider Initiated Documentation: 01/11/22 14:45 . Limitations to Documentation: no limitations . Information obtained by: patient . HPI Narrative: Patient is a 76-year-old female with a history of morbid obesity, COPD, asthma, CKD, fibromyalgia, hypothyroidism, obstructive sleep apnea on bipap, chronic b ack pain on chronic oxycodone and morphine who presents to the ED with a complaint of 2 wounds to her left leg for the past 3 months, now larger and draining clear liquid. She is also complaining of shortness of breath mostly with exertion and pedal edema for the past week. She admits to cough with occasional clear sputum and chest congestion. She states she has received a total of 3 COVID vaccines and denies any known recent significant she denies any fever, chest pain, vomiting or diarrhea. She states she is a trigger for ambulating at home when needed. Related Data Home Medications Medication Instructions Recorded Confirmed levothyroxine 175 mcg tablet 175 mcg PO DIRECTED 09/17/14 03/05/21 vit D3-folic acid-vit B2-B6-B12 1 tab PO DAILY 01/26/15 03/05/21 2,000 unit-800 mcg-0.32 mg tablet (Folgard) albuterol sulfate 90 mcg/actuation 2 puff inhalation DIRECTED PRN 03/13/16 03/05/21 aerosol inhaler (ProAir HFA) folic acid 1 mg tablet 1 mg PO DAILY 08/15/17 03/05/21 multivitamin (Daily-Wayne tablet) 1 ea PO DAILY 08/15/17 03/05/21 estradiol 0.01% (0.1 mg/gram) 2 g vaginal twice weekly #1 tube 04/02/19 03/05/21 vaginal cream (Estrace) cane #1 ea 02/24/20 03/05/21 celecoxib 200 mg capsule (Celebrex) 200 mg PO BID 02/24/20 03/05/21 naloxone 4 mg/actuation nasal 4 mg intranasal Q3M PRN 02/24/20 03/05/21 spray (Narcan) bupropion HCl 150 mg tablet,12 hr 150 mg PO DAILY 07/04/20 03/05/21 sustained-release fluoxetine 20 mg capsule 20 mg PO DAILY 07/04/20 03/05/21 acetaminophen 500 mg tablet 500 mg PO Q6H PRN PRN pain #60 tabs 07/27/20 03/05/21 Oxygen #1 ea 02/15/21 03/05/21 cetirizine 10 mg tablet (Zyrtec) 10 mg PO DAILY PRN 02/15/21 03/05/21 varenicline 0.5 mg (11)-1 mg (42) See Rx Instructions PO PER PKG DIR 03/05/21 03/05/21 tablets in a dose pack (Chantix #53 dose pk Starting Month Box) varenicline 1 mg tablet (Chantix 1 mg PO BID #56 tabs 03/05/21 03/05/21 Continuing Month Box) losartan 25 mg tablet 100 mg PO DAILY 06/14/21 atenolol 25 mg tablet 12.5 mg PO DAILY 09/04/21 gabapentin 600 mg tablet 300 mg PO TID 09/04/21 oxybutynin chloride 5 mg 5 mg PO DAILY #90 tabs 09/04/21 09/04/21 tablet,extended release 24 hr oxycodone-acetaminophen 10 mg-325 2 tab PO TID PRN 09/04/21 mg tablet (Percocet) Previous Rx's Medication Instructions Recorded estradiol 0.01% (0.1 mg/gram) 2 g vaginal twice weekly #1 tube 04/02/19 vaginal cream (Estrace) cane #1 ea 02/24/20 acetaminophen 500 mg tablet 500 mg PO Q6H PRN PRN pain #60 tabs 07/27/20 varenicline 0.5 mg (11)-1 mg (42) See Rx Instructions PO PER PKG DIR 03/05/21 tablets in a dose pack (Chantix #53 dose pk Starting Month Box) varenicline 1 mg tablet (Chantix 1 mg PO BID #56 tabs 03/05/21 Continuing Month Box) oxybutynin chloride 5 mg 5 mg PO DAILY #90 tabs 09/04/21 tablet,extended release 24 hr Allergies Allergy/AdvReac Type Severity Reaction Status Date / Time formoterol [From Dulera] Allergy Intermediate unknown Verified 06/14/21 14:43 mometasone furoate Allergy Intermediate unknown Verified 06/14/21 14:43 [From Dulera] mirabegron [From Myrbetriq] AdvReac Increased Verified 09/04/21 11:51 blood pressure General Stated Complaint: GenMedical SACHI: 3 Review of Systems All systems reviewed & are unremarkable except as noted in HPI and below Constitutional Constitutional: Denies chills, Denies excessive sweating, Denies fatigue, Denies fever(s), Denies weakness and Denies weight loss Eyes Eyes: Reports system reviewed and no additional complaints, except as documented and Denies blurry vision ENT Ears, Nose, Mouth, and Throat: Denies vertigo, Denies dizziness, Denies otalgia, Denies nasal congestion, Denies sore throat and Denies throat swelling Cardiovascular Cardiovascular: Denies chest pain, Denies syncope, Denies rapid heart rate, Reports pedal edema, Reports leg edema and Reports dyspnea Respiratory Respiratory: Reports chest congestion, Reports cough, Denies pain on inspiration and Reports dyspnea Gastrointestinal Gastrointestinal: Denies abdominal pain, Denies diarrhea and Denies vomiting Genitourinary Genitourinary: Denies hematuria, Denies dysuria and Denies flank pain Musculoskeletal Musculoskeletal: Denies back pain and Denies joint swelling Integumentary/Breasts Skin/Breast: Denies lesions and Denies rash Neurologic Neurologic: Denies behavioral changes, Denies confusion, Denies vertigo, Denies dizziness, Denies syncope, Denies localized weakness and Denies weakness Psychiatric Psychiatric: Denies behavioral changes, Denies confusion and Denies depression Endocrine Endocrine: Denies excessive sweating and Denies fatigue Hematologic/Lymphatic Hematologic/Lymphatic: Denies easy bruising and Denies lymphadenopathy Allergic/Immunologic Allergic/Immunologic: Denies throat swelling PFSH All Active Problems (Updated 01/11/22 @ 18:56 by Rayna Gale DO) Peripheral edema (Acute) Leg wound, left (Acute) Mixed stress and urge urinary incontinence (Acute) Screening for colon cancer (Acute) Gastroesophageal reflux disease (Acute 01/10/14) Obstructive sleep apnea syndrome (Acute) Severe obesity (Acute) Medical History (Updated 01/11/22 @ 18:56 by Rayna Gale DO) Abnormal auditory perception (01/10/14) Acquired pes planus Acute bronchospasm Allergic rhinitis Anxiety 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 Asthma, moderate persistent BCC (basal cell carcinoma) Bilateral carpal tunnel syndrome Bilateral cataracts Body mass index (BMI) of 40.0-44.9 in adult Cerumen impaction (02/14/14) Cervicalgia Change in voice (01/10/14) Chronic pain Cigarette nicotine dependence CKD (chronic kidney disease) Colonic polyp Coordination problem COPD (chronic obstructive pulmonary disease) Degenerative disc disease, lumbar Diverticulosis DJD (degenerative joint disease) Dysphonia (02/14/14) Dyspnea Edema Fibromyalgia First degree AV block Foot pain Fusion of lumbosacral spine H/O urinary frequency Hamstring tendonitis History of prediabetes HTN (hypertension) Hx of colonic polyps Hypothyroidism Idiopathic sleep related nonobstructive alveolar hypoventilation Iritis Knee pain, bilateral Left hip pain Lumbar stenosis Major depression Mobitz II Myalgia Obesity Onychodystrophy SUGEY on CPAP Ovarian mass Periodic limb movement disorder (10/23/18) Peripheral neuropathy Recurrent UTI (01/30/17) Restless leg syndrome Rotator cuff syndrome Sacroiliac joint pain Sensory hearing loss, bilateral (02/14/14) Spinal stenosis Tobacco use Trigger finger Urgency incontinence (01/30/17) Visual acuity reduced Surgical History (Updated 06/14/21 @ 14:46 by Adrianna Green RN) History of carpal tunnel release of both wrists Hx of colonoscopy Hx of total knee replacement Right distal ulnar fracture s/p ORIF DOS: 07/27/20 Family History Father Diabetes Son Diabetes Social History Smoking/Tobacco Use Status: Current every day Tobacco Type: cigarettes Smoking packs per day: 1 Smoking cigarettes per day: 20.0 Smoking risk assessment performed?: Yes Alcohol Intake: current Alcohol Intake frequency: 3 or more drinks per day Alcohol type: beer Drug use: Never Housing: house Number of Children: 9 Pets and animals: Yes Pets and animals: dog(s) and horse(s) Current gender identity: female What is your relationship status?: Panel score (0-1 are the most socially isolated patients): 0 What type of physical activity do you participate in: walking Seatbelt use: always Do you feel safe at home: Yes Do you feel safe in your relationship?: Yes Exam Const General: cooperative and no acute distress Nutritional Appearance: obese morbidly obese Orientation: alert, awake and oriented x3 HENMT Head: normal to inspection Ears: hearing grossly normal bilaterally and external ears normal General nose exam: external nose normal Face and sinus: normal facial exam Mouth: oral mucosae normal Teeth and gingiva: dentition normal Throat: posterior oropharynx normal Eyes General: appearance normal, both eyes and all related structures Eyelids: eyelids normal Pupils: PERRL EOM: EOM intact bilaterally Neck Neck: normal visual inspection Lymphatic: no lymphadenopathy noted Chest Chest: normal inspection of the chest Resp Effort & Inspection: normal respiratory effort and able to speak in complete sentences Auscultation: wheezes scattered wheezes Cardio Rate: regular rate Rhythm: regular rhythm GI Inspection: normal to inspection and obesity Palpation: soft, not firm, no guarding, no hepatosplenomegaly, no masses and nontender Auscultation: normal bowel sounds Back/Spine/Pelvis Back: no CVA tenderness Skin General skin exam: no rashes or lesions noted Neuro General: patient alert and patient awake Cognition: normal cognition Speech: speech normal Gait: normal gait Motor: muscle tone normal throughout Sensory Exam: no sensory deficits noted Extrem General: capillary refill normal Ankle/foot/toe images: 1. 1 x 1 cm open wound/ulcer noted to the anterior distal leg. There is clear drainage noted. There is no significant surrounding erythema, ecchymosis, f luctuance or induration. 2. 3 x 3 mm open wound with overlying superficial crust with no drainage, b leeding, surrounding erythema, ecchymosis, fluctuance or induration. Other: Nonpitting edema of bilateral lower extremities extending from distal lower legs down to feet. Bilateral distal lower extremity pulses intact. Psych Appearance: grossly normal Mental Status: mental status grossly normal Speech and Movement: speech and movement normal Affect: normal affect Thought Process: normal Course Vital Signs Vital signs: Vital Signs Temperature 97.3 F L 01/11/22 14:25 Pulse 71 01/11/22 14:25 Blood Pressure 157/72 H 01/11/22 14:25 Pulse Oximetry 96 01/11/22 14:25 Temperature 97.3 F L 01/11/22 14:25 Temperature Source Temporal Artery Scan 01/11/22 14:25 Pulse 71 01/11/22 14:25 Blood Pressure 157/72 H 01/11/22 14:25 Blood Pressure Position Sitting 01/11/22 14:25 Pulse Oximetry 96 01/11/22 14:25 Oxygen Delivery Method Room Air 01/11/22 14:25 Oxygen Flow Rate 0 01/11/22 14:25
--- NOTE | 2022-01-11 15:08 | DI.US_ITS ---
Exam(s) US EXTREMITY VENOUS BI EXAM: US EXTREMITY VENOUS BI CLINICAL HISTORY: leg swelling, r/o dvt. TECHNIQUE: Ultrasound performed using standard protocol. COMPARISON: US RENAL ULTRASOUND(P) from 01/10/2017 FINDINGS: Duplex venous ultrasound was performed according to the usual protocol. The deep veins are freely com pressible throughout and there is normal flow augmentation with manual calf compression. 2D and Doppl er evaluation are unremarkable. IMPRESSION: No evidence of deep venous thrombosis of the right or left lower extremity. DATA REPOSITORY:
[2022-01-11 15:21] LABS: Source Nasal/Nares
[2022-01-11] MEDS: Furosemide 40 MG/4 ML VIAL IVP (15:25)
[2022-01-11 15:30] VITALS: PULSE 72; RESP 18; O2SAT 94
[2022-01-11] MEDS: Albuterol/Ipratropium 3 ML UPD VIAL UPD (15:30)
[2022-01-11] MEDS: methylPREDNISolone SUCC 125 MG VIAL IVP (15:30)
[2022-01-11 16:11] LABS: COVID-19 PCR Negative (Negative)
[2022-01-11 16:53] LABS: Abs Immature Grans 0.02 10^3/uL (0.0-0.06); Absolute Basophil Count 0.06 10^3/uL (0.0-0.2); Absolute Eosinophil Count 0.22 10^3/uL (0.0-0.7); Absolute Lymphocyte Count 2.82 10^3/uL (1.2-3.4); Absolute Monocyte Count 0.49 10^3/uL (0.1-0.8); Absolute Neutrophil Count 3.11 10^3/uL (1.2-6.7); Basophils % 0.9; Eosinophils % 3.3; HCT 38.9 % (36.0-46.0); HGB 12.7 g/dL (11.2-15.7); Immature Grans % 0.3; MCH 32.2 pg (27.0-33.0); MCHC 32.6 % (32.0-36.0); MCV 99 fL (80-95); MPV 9.9 fL (8.0-11.0); Monocytes % 7.3; Neutrophils % 46.2; Platelet Count 178 10^3/uL (130-400); RBC 3.94 10^6/uL (3.93-5.22); RDW-SD 46.9 fL; WBC 6.72 10^3/uL (4.4-10.8)
[2022-01-11 17:11] LABS: ALT 38 U/L (14-59); AST 30 U/L (15-37); Albumin 3.6 g/dL (3.4-5.0); Alkaline Phosphatase 62 U/L (46-116); Anion Gap 8.7 mmol/L (3-11); BUN 16 mg/dL (7-18); Bilirubin, Total 0.4 mg/dL (0.2-1.0); C-Reactive Protein 0.57 mg/dL (0.0-0.3); CO2 27.3 mmol/L (21.0-32.0); Calcium 9.2 mg/dL (8.5-10.1); Chloride 107 mmol/L (98-107); Estimated GFR 53.62 (mL/min/1.73m2); Glucose 91 mg/dL (74-106); Sodium 143 mmol/L (136-145); Total Protein 7.1 g/dL (6.4-8.2); Troponin I 55 ng/L (<or=60)
[2022-01-11 17:18] LABS: NT-proBNP 1318 pg/mL (<300)
[2022-01-11 17:29] VITALS: PULSE 72; RESP 18; TEMP 36.3
[2022-01-11 18:30] VITALS: PULSE 76; RESP 18; TEMP 36.6; O2SAT 96
[2022-01-11] MEDS: Furosemide 20 MG TAB 60 MG PO (19:17)
== END 2022-01-11 19:38 | disposition home or self-care (01) ==
PROVIDERS: Emergency Provider Physician Assistant; PCP Family Medicine
DX: R60.0 Localized edema (principal); S81.802A Unspecified open wound, left lower leg, initial encounter; X58.XXXA Exposure to other specified factors, initial encounter; R06.02 Shortness of breath; R06.00 Dyspnea, unspecified
CPT/HCPCS: 80053; 87635; 93005; 94640; 96374; 96375; 99284; 71046; 83735; 83880; 84484; 85025; 86140; 93010; 93970; J1940; J2930; J7620

== ENCOUNTER → 2022-02-07 13:02 | Outpatient (BNVA) | payer MEDICARE, BC, SELFPAY | PROVIDERS: PCP Family Medicine; Referring Provider Family Medicine; Visit Provider Physical Therapy Assistant | DX: Z12.11 Encounter for screening for malignant neoplasm of colon (principal); R60.9 Edema, unspecified; E66.01 Morbid (severe) obesity due to excess calories; G47.33 Obstructive sleep apnea (adult) (pediatric) ==

== ENCOUNTER → 2022-03-04 10:33 | Outpatient (BNVA) | payer MEDICARE, BC, SELFPAY | PROVIDERS: PCP Family Medicine; Referring Provider Family Medicine; Visit Provider Nurse Practitioner Gerontology | DX: N39.46 Mixed incontinence (principal); E66.01 Morbid (severe) obesity due to excess calories | CPT/HCPCS: 51798; 99214 ==

== ENCOUNTER → 2022-03-12 00:51 | Outpatient (CLI) | payer MEDICARE, BC, SELFPAY ==
--- NOTE | 2022-03-12 | DI.NM_ITS ---
APPROVED REPORT Exam: Exercise Treadmill Patient Location: Out-Patient Room/Bed: Stress Nurse: Meg Marcelo RN Ordering Provider:RISHABH DAREN, Contact Number: [phone] BMI: 46.05 Baseline Rhythm: Sinus Rhythm w/ 1st degree AV block, episodes of 2nd degree AV block Type I Comment: Frequent PVCs Indications: Chest discomfort Medical History Medical History: Hypertension, prediabetes, obesity, asthma, COPD, smoker (current), heart murmur, OS A, neuropathy, anxiety, depression, spinal stenosis, fibromyalgia, arthritis Cardiac Medications: Albuterol sulfate, losartan, atenolol, gabapentin, aspirin, nitroglycerin, lasix , CPAP machine Allergies: Formoterol, mometasone, furoate, mirabegron Cardiac Risk Factors: Hypertension, prediabetes, smoker (current), asthma, obesity, COPD Previous Cardiac Procedures: None Pretest Chest Pain Characteristics: None Exercise History: Sedentary Physical Disabilities: Unsteady gait, arthritis Lung Sounds: Clear to auscultation Heart Sounds: Murmur Stress Test Details Test: Exercise stress testing was performed using a manual modified Billy protocol. Nuclear Acquisition: Rest Tc-99m/Stress Tc-99m 1 day Rest Isotope: Tc-99m Sestamibi. Dose: 12.3 Date: 03/12/2022 Injection Time: 1110 Stress Isotope: Tc-99m Sestamibi. Dose: 34.8 Date: 03/12/2022 Injection Time: 1255 HR Resting HR Supine: 71 bpm Max Heart Rate (APMHR): 142.328774 bpm Resting HR Standin bpm Target HR (85% APMHR): 120.737655 bpm Max HR Achieved: 125 bpm % of APMHR: 88.03 Recovery HR: 82 bpm HR response to stress: Normal HR response to stress Comment: Atenolol held for 24 hrs BP Resting BP Supine: 118/64 mmHg Resting BP Standin/82 mmHg Max BP: 180/98 mmHg Recovery BP: 122/70 mmHg BP response to stress: Normal blood pressure response to stress. ECG Resting ECG: Sinus Rhythm w/ 1st degree AV block, episodes of 2nd degree AV block Type I Ectopy: Frequent PVCs Stress ECG: Sinus Tachycardia w/ 1st degree AV block, episodes of 2nd degree AV block Type I ST Change: No significant ST segment changes noted Arrhythmia: Frequent PVCs Recovery ECG: Sinus Rhythm w/ 1st degree AV block, episodes of 2nd degree AV block Type I Recovery ST Change: No significant ST segment changes noted Recovery Arrhythmia: Frequent PVCs, couplet Clinical Reason for Termination: Fatigue, Dyspnea Stress Symptoms: General Fatigue, Dyspnea Exercise duration: 4 min00 sec Exercise capacity: 2.29 METs Angina Score: None Rate Pressure Product: [id number] Stress ECG Conclusion 1. Resting electrocardiogram showed first-degree AV block, periods of Mobitz 1 second-degree AV block 2. Patient exercised on a Billy protocol and completed a workload of 2.29 METS 3. Peak heart rate achieved was 88% of predicted for age 4. Electrocardiographic portion of the test was negative for myocardial ischemia 5. PVCs were seen 6. See MPI report Stress Test Summary STAGE Time (mins) Speed (mph) Grade (%) HR BP SpO2 SYMPTOMS METS Supine 71 118/64 Standing 81 140/82 93% 1 min recovery 92 180/98 97% 3 min recovery 68 158/90 98% 6 min recovery 82 122/70 98% Patient ambulated on treadmill with a manual modified Billy protocol due to patient's unsteady gait a nd physical limitation. Patient ambulated for 4 minutes on treadmill with speed of 1.5-2.0 mph and 0% - 2% grade. SpO2 during ambulation was 86% - 91%. Patient reported mild dyspnea during exercise stres s which resolved in first minute of recovery. Target heart rate was achieved under these treadmill se ttings. Patient tolerated testing well. MPI Conclusion Normal myocardial perfusion without evidence of ischemia or prior infarction EF is 66%, wall motion is normal Radiologist Interpretation Radiologist agrees with Textiles Printer's Interpretation. Radiologist Interpretation by: Scottie Joshi MD Interpretation Date/Time: 03/13/2022 08:06:36
== END ==
PROVIDERS: PCP Family Medicine; Visit Provider Family Medicine
DX: R07.89 Other chest pain (principal); I44.0 Atrioventricular block, first degree; I44.1 Atrioventricular block, second degree; I49.3 Ventricular premature depolarization
CPT/HCPCS: 78452; 93016; 93018; 93017

== ENCOUNTER → 2022-03-26 01:03 | Outpatient (CLI) | payer MEDICARE, BC, SELFPAY ==
--- NOTE | 2022-03-26 15:00 | DI.US_ITS ---
APPROVED REPORT EXAM: Comprehensive 2D, Doppler, and color-flow Echocardiogram Patient Location: [facility] All Source Intelligence: Bianca Gurrola RDCS (AE) Indications: Peripheral Edema, Murmur, SOB, Sleep apnea , Pre op colonoscopy, Other Information Study Quality: Fair. Technically limited study due to body habitus. Conclusion Normal left ventricular wall thickness and chamber size. Estimated ejection fraction is 60% Wall mot ion is normal Normal right ventricular size and systolic function Both atria are normal in size Trileaflet sclerotic aortic valve without stenosis or regurgitation There is no additional structural or hemodynamically significant valvular disease Wall motion Left Ventricle The left ventricle is normal size. The left ventricular systolic function is normal. The left ventric ular ejection fraction is within the normal range. There is normal left ventricular wall thickness. T here is normal LV segmental wall motion. There is no ventricular septal defect visualized. LVEF is 60 %. Right Ventricle The right ventricle is normal size. The right ventricular systolic function is normal. Atria The left atrium size is normal. The right atrium size is normal. The interatrial septum is intact wit h no evidence for an atrial septal defect. Aortic Valve The Aortic valve is sclerotic. Aortic valve is trileaflet. There is no aortic valvular stenosis. No a ortic regurgitation is present. Mitral Valve The mitral valve is normal in structure. No evidence of mitral valve stenosis. Mild mitral regurgitat ion. Tricuspid Valve The tricuspid valve is normal in structure. There is no tricuspid valve stenosis. Mild tricuspid regu rgitation. Pulmonic Valve The pulmonary valve is normal in structure. There is no pulmonic valvular stenosis. Trace pulmonic re gurgitation. Great Vessels The aortic root is normal in size. The ascending aorta is normal in size. The IVC was not clearly vis ualized. Pericardium There is no pericardial effusion. 2D Dimensions IVSD d PLAX 0.98 cm F: 0.6-1.0 LV Vol A2C d MOD 123.5 mL LVPW d PLAX 0.99 cm F: 0.6 - 1.0 LV Vol A4C d MOD 116.0 mL LVID d PLAX 5.19 cm F: 3.8 - 5.2 LA vol/ BSA A2C s A-L 27.1 mL/m2 LVDs 3.40 cm F: 2.2 - 3.5 LA vol/ BSA A4C s A-L 26.0 mL/m2 Ao Root d 2.82 cm F: 2.7 - 3.3 LA Vol/ BSA Biplane s A-L 28.8 mL/m2 RA Area A4C 16.87 cm2 LA Area A4C s MOD 19.83 cm2 RA Vol/ BSA A4C s A-L 22.5 mL/m2 LA Area A2C s MOD 18.64 cm2 Ao Asc Diam d 3.06 cm F: 2.3 - 3.1 LV EF A4C MOD 63.1 % LV EF Teichholz 62.3 % LV EF A2C MOD 60.0 % LVEF (Olivier's) 61.90 % F: 54 - 74 LV EF Biplane MOD 61.9 % LV Volume 88.78 mL F: 46 - 106 SV 74.92 mL LV Volume Index 41.48 mL/m2 F: 29 - 61 SV Index 35.00 mL/m2 LV Vol Biplane MOD 121.0 mL FS 33.80 % M-Mode TAPSE 3.04 cm (M/F) >1.7 LV Diastology MV E' medial 0.055 (>0.07 m/s) E/A Ratio 0.9 LV E/e MED 14.85 (<14) MV E Vmax 0.82 (0.4-1.3 m/s) MV E' lateral 0.082 (>0.1 m/s) MV A Vmax 0.95 (0.4-1.3 m/s) LV E/e LAT 10.00 (<14) MV E/A Ratio 0.83 MV E/E' medial 14.89 MV E/E' lateral 10.00 Aortic Valve LVOT Area 2.81 cm2 AoV Area Vmax 2.25 cm2 LVOT Vmax 1.17 m/s AoV Area/ BSA (Vmax) 1.05 cm2/m2 LVOT Mean Jaison. 0.74 m/s NELIDA Mean Jaison. 2.18 cm2 LVOT Peak Grad 5.4 mmHg NELIDA Mean Jaison. Index 1.02 cm2/m2 LVOT Mean Grad 2.6 mmHg LVOT VTI 0.263 m LVOT Diam s 1.85 cm AoV Vmax 1.45 m/s Velocity Ratio 0.80 AoV Mean Jaison. 0.95 m/s AoV Peak Grad 8.4 mmHg LVOT SV 73.90 mL AoV Mean Grad 4.2 mmHg AoV VTI 0.290 m AoV Area VTI 2.55 cm2 AoV Area/ BSA (VTI) 1.19 cm/m2 Mitral Valve MV DT 286 (160-240 msec) MV PHT 83 msec MV Area PHT 2.65 cm2 MV VTI 0.291 m MV Area VTI 2.54 (4.0-6.0 cm2) Pulmonary Valve PV Vmax 0.96 (0.5-1.5 m/s) RVOT Peak Gr. 1.98 mmHg PV Peak Grad 3.7 mmHg RVOT Mean Gr. 1.05 mmHg PV Mean Grad 2.0 mmHg RVOT VTI 0.176 m PV VTI 0.228 m RVOT Vmax 0.70 m/s Tricuspid Valve TR Peak Grad 27.3 mmHg TR Vmax 2.62 m/s
== END ==
PROVIDERS: PCP Family Medicine; Visit Provider Physical Therapy Assistant
DX: E66.01 Morbid (severe) obesity due to excess calories (principal); G47.33 Obstructive sleep apnea (adult) (pediatric); R60.9 Edema, unspecified; Z12.11 Encounter for screening for malignant neoplasm of colon; R01.1 Cardiac murmur, unspecified
CPT/HCPCS: 93306

== ENCOUNTER 2022-04-17 06:15 | Day surgery (SDC) | payer MEDICARE, BC, SELFPAY ==
[2022-04-17 06:15] VITALS: BP 144/80; PULSE 74; RESP 18; TEMP 36.7; O2SAT 100
--- NOTE | 2022-04-17 06:16 | HPE_ITS ---
Assessment and Plan Assessment and plan (1) Encounter for colorectal cancer screening: Status: Acute Assessment and plan: The patient is here for Colonoscopy pre-op. Her last screening was in 2009 and was unremarkable. She has no family history of colon cancer. She has not had any bowel habit changes. -Discussed colonoscopy bowel prep as well as the procedure. Discussed possible complications of the procedure to include bleeding, pain, perforation, missed small lesion/polyp, sore throat, aspiration and adverse reaction to the medications. Questions were answered to patient?s satisfaction. No guarantees were implied or given.? History of Present Illness Narrative: 76 y/o female with history of hypertension, peripheral edema, obstructive SUGEY, obesity, anxiety, spinal stenosis, major depression and first-degree AV block presents for colonoscopy screening pre-op. Her last screening was in 2009, which was unremarkable. She denies a family history of colon cancer. She denies any changes in bowel habits including bloody or black tarry stools, abdominal pain, diarrhea or constipation. She denies constitutional symptoms. Denies use of marijuana or any other recreational or illegal drugs. Patient reports that she has noted bilateral lower extremity edema that has in her opinion been worsening.? She states that she was previously dealing with neuropathy burning/pain however at this time the swelling has been more bothersome.? She was seen in the ER on 01/11 for peripheral edema at which time she was started on some Lasix, sent home on antibiotics and recommended follow- up with her PCP in 1 week. She denies chest pain or palpitations. Patient states she is not physically active, however she has noted increased shortness of breath with activity.? She ambulates with a cane and has a service dog.? She was last seen by pulmonology on 02/15/2021 and she has not followed up with this provider since that time.? She denies prior history or family history of adverse reactions or complications with anesthesia. The patient denies any history of stroke, SD, seizures, bleeding or clotting disorders.? Patient reports having implanted metal in bilateral knees, left hip, left shoulder, low back and right wrist. Patient had an MPI and ECHO done which were both OK MPI Conclusion Normal myocardial perfusion without evidence of ischemia or prior infarction EF is 66%, wall motion is normal * ECHO Conclusion Normal left ventricular wall thickness and chamber size.? Estimated ejection fraction is 60% Wall motion is normal Normal right ventricular size and systolic function Both atria are normal in size Trileaflet sclerotic aortic valve without stenosis or regurgitation There is no additional structural or hemodynamically significant valvular disease Review of Systems All systems reviewed & are unremarkable except as noted in HPI and below PFSH All Active Problems (Updated 04/17/22 @ 06:19 by Sarina Carrillo MD) Encounter for colorectal cancer screening (Acute) Severe obesity (Acute) Obstructive sleep apnea syndrome (Acute) Screening for colon cancer (Acute) Medical History Abnormal auditory perception (01/10/14) Acquired pes planus Acute bronchospasm Allergic rhinitis Anxiety 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 Asthma, moderate persistent BCC (basal cell carcinoma) Bilateral carpal tunnel syndrome Bilateral cataracts Body mass index (BMI) of 40.0-44.9 in adult Cerumen impaction (02/14/14) Cervicalgia Change in voice (01/10/14) Chronic pain Cigarette nicotine dependence CKD (chronic kidney disease) Colonic polyp Coordination problem COPD (chronic obstructive pulmonary disease) Degenerative disc disease, lumbar Diverticulosis DJD (degenerative joint disease) Dysphonia (02/14/14) Dyspnea Edema Fibromyalgia First degree AV block Foot pain Fusion of lumbosacral spine Gastroesophageal reflux disease (01/10/14) H/O urinary frequency Hamstring tendonitis History of prediabetes HTN (hypertension) Hx of colonic polyps Hypothyroidism Idiopathic sleep related nonobstructive alveolar hypoventilation Iritis Knee pain, bilateral Left hip pain Leg wound, left Lumbar stenosis Major depression Mixed stress and urge urinary incontinence Mobitz II Myalgia Obesity Onychodystrophy SUGEY on CPAP Ovarian mass Periodic limb movement disorder (10/23/18) Peripheral neuropathy Recurrent UTI (01/30/17) Restless leg syndrome Rotator cuff syndrome Sacroiliac joint pain Sensory hearing loss, bilateral (02/14/14) Spinal stenosis Tobacco use Trigger finger Urgency incontinence (01/30/17) Visual acuity reduced Surgical History History of carpal tunnel release of both wrists History of hip replacement Hx of colonoscopy Hx of total knee replacement Right distal ulnar fracture s/p ORIF DOS: 07/27/20 Family History Father Diabetes Son Diabetes Social History Smoking/Tobacco Use Status: Current every day Tobacco Type: cigarettes Smoking packs per day: 1 Smoking cigarettes per day: 20.0 Smoking risk assessment performed?: Yes Alcohol Intake: current Alcohol Intake frequency: 3 or more drinks per day Alcohol type: beer Drug use: Never Substance use type: does not use Housing: house Number of Children: 9 Pets and animals: Yes Pets and animals: dog(s) and horse(s) Current gender identity: female What is your relationship status?: Panel score (0-1 are the most socially isolated patients): 0 What type of physical activity do you participate in: walking Seatbelt use: always Do you feel safe at home: Yes Do you feel safe in your relationship?: Yes Meds Allergies and Home Medications Allergies Allergy/AdvReac Type Severity Reaction Status Date / Time formoterol [From Dulera] Allergy Intermediate unknown Verified 04/17/22 06:06 mometasone furoate Allergy Intermediate unknown Verified 04/17/22 06:06 [From Dulera] [email or web address] [From Myrbetriq] AdvReac Increased Verified 04/17/22 06:06 blood pressure Home Medications Medication Instructions Recorded Confirmed Type levothyroxine 175 mcg tablet 175 mcg PO DIRECTED 09/17/14 04/16/22 History vit D3-folic acid-vit B2-B6-B12 1 tab PO DAILY 01/26/15 04/16/22 History 2,000 unit-800 mcg-0.32 mg tablet (Folgard) albuterol sulfate 90 mcg/actuation 2 puff inhalation DIRECTED PRN 03/13/16 04/16/22 History aerosol inhaler (ProAir HFA) folic acid 1 mg tablet 1 mg PO DAILY 08/15/17 04/16/22 History multivitamin (Daily-Wayne tablet) 1 ea PO DAILY 08/15/17 04/16/22 History estradiol 0.01% (0.1 mg/gram) 2 g vaginal twice weekly #1 tube 04/02/19 04/16/22 Rx vaginal cream (Estrace) cane #1 ea 02/24/20 04/16/22 Rx celecoxib 200 mg capsule (Celebrex) 200 mg PO BID 02/24/20 04/16/22 History naloxone 4 mg/actuation nasal 4 mg intranasal Q3M PRN 02/24/20 04/16/22 History spray (Narcan) bupropion HCl 150 mg tablet,12 hr 150 mg PO DAILY 07/04/20 04/16/22 History sustained-release Oxygen #1 ea 02/15/21 04/16/22 History losartan 25 mg tablet 100 mg PO DAILY 06/14/21 04/16/22 History atenolol 25 mg tablet 12.5 mg PO DAILY 09/04/21 04/16/22 History oxycodone-acetaminophen 10 mg-325 2 tab PO TID PRN 09/04/21 04/16/22 History mg tablet (Percocet) bisacodyl 5 mg tablet,delayed 5 mg PO ONCE Colonoscopy Bowel 02/07/22 04/16/22 Rx release (Dulcolax (bisacodyl)) Prep #4 tabs polyethylene glycol 3350 17 238 g PO ONCE Colonoscopy Bowel 02/07/22 04/16/22 Rx gram/dose oral powder Prep #238 grams gabapentin 600 mg tablet 100 mg PO TID 03/04/22 04/16/22 History oxybutynin chloride 5 mg 5 mg PO DAILY #90 tabs 03/04/22 04/16/22 Rx tablet,extended release 24 hr Exam Const General: cooperative, comfortable and no acute distress Nutritional Appearance: obese HENMT Head: normocephalic and atraumatic Resp Effort & Inspection: normal respiratory effort Auscultation: clear to auscultation bilaterally Cardio Rate: regular rate Rhythm: regular rhythm
--- NOTE | 2022-04-17 06:24 | W.COLOREPORT ---
Colonoscopy Report Date of procedure: 04/17/22 Pre-op diagnosis general: colon cancer screening Post-op diagnosis procedure note: other (colon mass at 60 cm and diverticulosis) Procedure: Colonoscopy with biopsies Surgeon: Sarina Carrillo Anesthesia Type: General:No Airway Estimated blood loss (mL): 5 Pathology: other (biopsies of mass at 60 cm) Complications: None Disposition: same day Indications: The patient is here for Colonoscopy pre-op. Her last screening was in 2009 and was unremarkable. She has no family history of colon cancer. She has not had any bowel habit changes. -Discussed colonoscopy bowel prep as well as the procedure. Discussed possible complications of the procedure to include bleeding, pain, perforation, missed small lesion/polyp, sore throat, aspiration and adverse reaction to the medications. Questions were answered to patient?s satisfaction. No guarantees were implied or given.? Prep: Miralax/Dulcolax Procedure Start Time: 07:36 Procedure End Time: 08:02 Retraction Time: 12 minutes Findings: Mass at 60 cm Killian-diverticulosis Procedure Description: After informed consent was obtained the patient was taken to the procedure room and placed in a left decubitous position. Monitors were applied and a time out was done. The patients name, date of , procedure, allergies to medications and metal in their body was reviewed. The patient was then sedated. Once sedated and comfortable a rectal exam was done. External exam was normal. Internal exam revealed a normal sphincter tone and no palpable masses. The scope was then introduced and retro-flexed. No internal hemorrhoids, polyps or masses were identified on retro-flexion. The scope was then advanced to the cecum without difficulty. The ileocecal vlave and appendiceal orifice were identified. The prep was good. The scope was then slowly retracted over 12 minutes back into the rectum. There was a mass noted at 60 cm which was ulcerated. Biopsies were done. There was killian- diverticulosis noted. The scope was removed and the patient was woken up and taken back to Same day surgery in stable condition. The patient tolerated the procedure well and there were no immediate complications. Follow up: 1 week.
--- NOTE | 2022-04-17 06:25 | W.PM.DSUDISC ---
Discharge Plan Disposition Patient Disposition: HOME Condition: Good Discharge Details Reason For Visit: colonoscopy Attending Provider: Sarina Carrillo Primary Care Provider: Wilma Nance V Home Meds and New Rx's Prescriptions: Continued oxybutynin chloride 5 mg tablet extended release 24hr 5 mg PO DAILY Qty: 90 3RF estradiol [Estrace] 0.01 % (0.1 mg/gram) cream 2 g VG twice weekly Qty: 1 12RF (DME) Oxygen Tank See Rx Instructions .ROUTE .MEDSUPPLY Qty: 1 Rx Instructions: As directed,2L of oxygen bled into BiPAP. atenolol 25 mg tablet 12.5 mg PO DAILY oxycodone-acetaminophen [Percocet] 10-325 mg tablet 2 tab PO TID PRN multivitamin [Daily-Wayne] 1 EACH tablet 1 ea PO DAILY folic acid 1 MG tablet 1 mg PO DAILY celecoxib [Celebrex] 200 mg capsule 200 mg PO BID (DME) cane Device See Rx Instructions .ROUTE .MEDSUPPLY Qty: 1 0RF Rx Instructions: As directed naloxone [Narcan] 4 mg/actuation spray,non-aerosol 4 mg LAWRENCE Q3M PRN Rx Instructions: spray 1 dose into ONE nostril; alternate nostrils w each dose until help arrives losartan 25 mg tablet 100 mg PO DAILY levothyroxine 175 MCG tablet 175 mcg PO DIRECTED Label Comments: daily Folgard 1 EACH tablet 1 tab PO DAILY albuterol sulfate [ProAir HFA] 8.5 GM HFA aerosol inhaler 2 puff Inhalation DIRECTED PRN Label Comments: prior to exercise gabapentin 600 mg tablet 100 mg PO TID bupropion HCl 150 mg tablet sustained-release 12 hr 150 mg PO DAILY Discontinued polyethylene glycol 3350 17 gram/dose powder 238 g PO ONCE Qty: 238 0RF Rx Instructions: Colonoscopy Bowel Prep- Per Instructions bisacodyl [Dulcolax (bisacodyl)] 5 mg tablet,delayed release (DR/EC) 5 mg PO ONCE Qty: 4 0RF Rx Instructions: Colonoscopy Bowel Prep- Per Instructions Discharge Instructions Instructions: Diverticulosis (DC) Additional Instructions: Findings: Ulcerated mass at 60 cm Killian-diverticulosis Follow up: 1 week Please call if you develop: fevers >101.5 Nausea or Vomiting Abdominal pain that is not transient Rectal bleeding that is more then a tbsp A hard abdomen and inability to pass gas DAY SURGERY UNIT POST ENDOSCOPY INSTRUCTIONS Instructions for everyone who is given Anesthesia: For your safety, please do the following for the next 24 Hours: a. Do not drive or operate dangerous equipment b. Do not drink alcohol beverages or use any recreational drugs for the first 24 hours or while taking pain medications. The medications in your body may have a reaction that can be dangerous. c. Do not make any important decisions or sign any important papers 1. Generally there are no restrictions on your activity after a day or so has gone by, but you may feel a bit fatigued for a few days. 2. After you arrive home you may have a light meal and return to a normal diet as you can tolerate it without feeling sick to your stomach. 3. After surgery, you may feel pain or discomfort. This should be only transient, but if it persists please contact your doctor. 4. If there are any questions regarding the findings of your procedure, please feel free to contact your doctor. 6. If you are unable to contact your doctor with a problem, contact the hospital at [phone]. 7. Continue all your regular medications unless directed otherwise. I understand the above instructions and have no questions. Signature of Patient or Responsible Adult Escort Date/Time Name of Responsible Adult Escort Signature of Nurse Date/Time Referrals: Sarina Carrillo MD [ [facility] STAFF PHYSICIAN] - 04/23/22 9:15 am Activity:: Activity as Tolerated Diet:: high fiber diet Discharge Orders Discharge Orders: Discharge Order (Routine); Ordered 04/17/22 Ordered By: Sarina Carrillo DS: Diagnosis Discharge Diagnosis (1) Encounter for colorectal cancer screening: Status: Acute
--- NOTE | 2022-04-17 06:59 | ANES.PREOP_ITS ---
General Info Date of Service Date Performed: 04/17/22 Height: 5 ft 3 in Weight: 114.6 kg Body Mass Index (BMI): 44.7 Surgical Procedure: Operation Date: 04/17/22 07:35 Proposed Procedure Side Surgeon p Colonoscopy Sarina Carrillo MD Meds Allergies and Home Medications Allergies Allergy/AdvReac Type Severity Reaction Status Date / Time formoterol [From Dulera] Allergy Intermediate unknown Verified 04/17/22 06:06 mometasone furoate Allergy Intermediate unknown Verified 04/17/22 06:06 [From Dulera] [email or web address] [From Myrbetriq] AdvReac Increased Verified 04/17/22 06:06 blood pressure Home Medication Medication Instructions Recorded levothyroxine 175 mcg tablet 175 mcg PO DIRECTED 09/17/14 vit D3-folic acid-vit B2-B6-B12 1 tab PO DAILY 01/26/15 2,000 unit-800 mcg-0.32 mg tablet (Folgard) albuterol sulfate 90 mcg/actuation 2 puff inhalation DIRECTED PRN 03/13/16 aerosol inhaler (ProAir HFA) folic acid 1 mg tablet 1 mg PO DAILY 08/15/17 multivitamin (Daily-Wayne tablet) 1 ea PO DAILY 08/15/17 estradiol 0.01% (0.1 mg/gram) 2 g vaginal twice weekly #1 tube 04/02/19 vaginal cream (Estrace) cane #1 ea 02/24/20 celecoxib 200 mg capsule (Celebrex) 200 mg PO BID 02/24/20 naloxone 4 mg/actuation nasal 4 mg intranasal Q3M PRN 02/24/20 spray (Narcan) bupropion HCl 150 mg tablet,12 hr 150 mg PO DAILY 07/04/20 sustained-release Oxygen #1 ea 02/15/21 losartan 25 mg tablet 100 mg PO DAILY 06/14/21 atenolol 25 mg tablet 12.5 mg PO DAILY 09/04/21 oxycodone-acetaminophen 10 mg-325 2 tab PO TID PRN 09/04/21 mg tablet (Percocet) bisacodyl 5 mg tablet,delayed 5 mg PO ONCE Colonoscopy Bowel 02/07/22 release (Dulcolax (bisacodyl)) Prep #4 tabs polyethylene glycol 3350 17 238 g PO ONCE Colonoscopy Bowel 02/07/22 gram/dose oral powder Prep #238 grams gabapentin 600 mg tablet 100 mg PO TID 03/04/22 oxybutynin chloride 5 mg 5 mg PO DAILY #90 tabs 03/04/22 tablet,extended release 24 hr Current Visit Medications: Current Medications Generic Name Dose Route Start Last Admin Trade Name Freq PRN Reason Stop Dose Admin Hyoscyamine Sulfate 0.125 mg 04/17/22 06:26 Hyoscyamine 0.125 Mg Sl/Oral/Chew SL DIRECTED PRN Ringer's Solution 1,000 mls @ 80 mls/hr 04/17/22 06:00 IV 04/17/22 23:59 INFUSION [facility] IV Miscellaneous Supplies 1 each 04/17/22 06:00 Iv Access IV 04/17/22 23:59 DIRECTED [facility] Ondansetron HCl 4 mg 04/17/22 06:26 Ondansetron 4 Mg/2 Ml Vial IVP Q4H PRN PRN Nausea / Vomiting Sodium Chloride 0 ml 04/17/22 06:00 Normal Saline Flush 10 Ml Syr IV 04/17/22 23:59 PRN PRN Sodium Chloride 0 ml 04/17/22 06:00 Normal Saline 10 Ml Vial IJ 04/17/22 23:59 DIRECTED PRN Sterile Water 0 ml 04/17/22 06:00 Water,Injection,Sterile 10 Ml Vial IJ 04/17/22 23:59 DIRECTED PRN PFSH Active Problems Active Problems: Problem Status Onset Code Severe obesity E66.01 Obstructive sleep apnea syndrome G47.33 Screening for colon cancer Z12.11 Encounter for colorectal cancer screening Z12.11, Z12.12 Medical History Medical History Abnormal auditory perception (01/10/14) Acquired pes planus Acute bronchospasm Allergic rhinitis Anxiety 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 Asthma, moderate persistent BCC (basal cell carcinoma) Bilateral carpal tunnel syndrome Bilateral cataracts Body mass index (BMI) of 40.0-44.9 in adult Cerumen impaction (02/14/14) Cervicalgia Change in voice (01/10/14) Chronic pain Cigarette nicotine dependence CKD (chronic kidney disease) Colonic polyp Coordination problem COPD (chronic obstructive pulmonary disease) Degenerative disc disease, lumbar Diverticulosis DJD (degenerative joint disease) Dysphonia (02/14/14) Dyspnea Edema Fibromyalgia First degree AV block Foot pain Fusion of lumbosacral spine Gastroesophageal reflux disease (01/10/14) H/O urinary frequency Hamstring tendonitis History of prediabetes HTN (hypertension) Hx of colonic polyps Hypothyroidism Idiopathic sleep related nonobstructive alveolar hypoventilation Iritis Knee pain, bilateral Left hip pain Leg wound, left Lumbar stenosis Major depression Mixed stress and urge urinary incontinence Mobitz II Myalgia Obesity Onychodystrophy SUGEY on CPAP Ovarian mass Periodic limb movement disorder (10/23/18) Peripheral neuropathy Recurrent UTI (01/30/17) Restless leg syndrome Rotator cuff syndrome Sacroiliac joint pain Sensory hearing loss, bilateral (02/14/14) Spinal stenosis Tobacco use Trigger finger Urgency incontinence (01/30/17) Visual acuity reduced Surgical History Surgical History (Updated 04/17/22 @ 06:48 by Malgorzata Zhou) History of carpal tunnel release of both wrists History of hip replacement History of knee replacement Hx of colonoscopy Hx of total knee replacement Right distal ulnar fracture s/p ORIF DOS: 07/27/20 Tobacco Smoking/Tobacco Use Status: Current every day Tobacco Type: cigarettes Smoking packs per day: 1 Smoking cigarettes per day: 20.0 Alcohol Alcohol Intake: current Alcohol intake frequency: 3 or more drinks per day Alcohol type: beer Substance Use Substance use: Never Substance use type: does not use Vital Signs and Lab Results Vital Signs Most Recent Vital Signs in EMR: Most Recent Vital Signs Temp Pulse Resp BP Pulse Ox 36.7 C 74 18 144/80 H 100 04/17/22 06:15 04/17/22 06:15 04/17/22 06:15 04/17/22 06:15 04/17/22 06:15 Lab Results Blood Type / Crossmatch: No Data to Display Complete Blood Count: No Data to Display Complete Metabolic Panel: No Data to Display Liver Function Panel: No Data to Display Coagulation Panel: No Data to Display Cardiac Panel: No Data to Display Arterial Blood Gas: No Data to Display Venous Blood Gas: No Data to Display Pancreas Panel: No Data to Display Thyroid Panel: No Data to Display Infectious Disease: No Data to Display Blood Cultures: No Data to Display Toxicology Panel: No Data to Display Imaging and Studies Imaging and Studies Study information below may be from another EMR and interpreted by another provider. Please see original notes in EMR for more complete details. EKG Summary: 01/11/2022 Exam: Resting ECG Reason for Exam: DYSPNEA Patient Location: E HR:62 bpm ECG Measurements Heart Rate 62 AXIS DE 301 P 61 QRSd 104 QRS 40 QT 410 T54 QTc 418 Conclusion Sinus rhythm...normal P axis, V-rate 60- 99 Prolonged DE interval...DE >220, V-rate 50- 90 Stress Test Summary: 03/22/2022 Clinical Reason for Termination: Fatigue, Dyspnea Stress Symptoms: General Fatigue, Dyspnea Exercise duration: 4 min00 sec Exercise capacity: 2.29 METs Angina Score: None Rate Pressure Product: 10153 Stress ECG Conclusion 1. Resting electrocardiogram showed first-degree AV block, periods of Mobitz 1 second-degree AV block 2. Patient exercised on a Billy protocol and completed a workload of 2.29 METS 3. Peak heart rate achieved was 88% of predicted for age 4. Electrocardiographic portion of the test was negative for myocardial ischemia 5. PVCs were seen 6. See MPI report Stress Test Summary STAGETime (mins)Speed (mph)Grade (%)[id number] Skuovi60690/64 Wecatnhp72552/8293% 1 min lwdngnun47088/9897% 3 min yjoncwad05679/9098% 6 min teqvevhi31808/7098% Patient ambulated on treadmill with a manual modified Billy protocol due to patient's unsteady gait and physical limitation. Patient ambulated for 4 minutes on treadmill with speed of 1.5-2.0 mph and 0%- 2% grade. SpO2 during ambulation was 86% - 91%. Patient reported mild dyspnea during exercise stress which resolved in first minute of recovery. Target heart rate was achieved under these treadmill settings. Patient tolerated testing well. MPI Conclusion Normal myocardial perfusion without evidence of ischemia or prior infarction EF is 66%, wall motion is normal Clinical Reason for Termination: Fatigue, Dyspnea Stress Symptoms: General Fatigue, Dyspnea Exercise duration: 4 min00 sec Exercise capacity: 2.29 METs Angina Score: None Rate Pressure Product: 37767 Stress ECG Conclusion 1. Resting electrocardiogram showed first-degree AV block, periods of Mobitz 1 second-degree AV block 2. Patient exercised on a Billy protocol and completed a workload of 2.29 METS 3. Peak heart rate achieved was 88% of predicted for age 4. Electrocardiographic portion of the test was negative for myocardial ischemia 5. PVCs were seen 6. See MPI report Stress Test Summary STAGETime (mins)Speed (mph)Grade (%)[id number] Dezgde30112/64 Nytehlqt54648/8293% 1 min ugynedkn63477/9897% 3 min ygctqzpx10065/9098% 6 min ugxbtder49963/7098% Patient ambulated on treadmill with a manual modified Billy protocol due to patient's unsteady gait and physical limitation. Patient ambulated for 4 minutes on treadmill with speed of 1.5-2.0 mph and 0%- 2% grade. SpO2 during ambulation was 86% - 91%. Patient reported mild dyspnea during exercise stress which resolved in first minute of recovery. Target heart rate was achieved under these treadmill settings. Patient tolerated testing well. MPI Conclusion Normal myocardial perfusion without evidence of ischemia or prior infarction EF is 66%, wall motion is normal Echocardiogram Summary: 03/26/2022 Indications: Peripheral Edema, Murmur, SOB, Sleep apnea , Pre op colonoscopy, Other Information Study Quality: Fair. Technically limited study due to body habitus. Conclusion Normal left ventricular wall thickness and chamber size. Estimated ejection fraction is 60% Wall motion is normal Normal right ventricular size and systolic function Both atria are normal in size Trileaflet sclerotic aortic valve without stenosis or regurgitation There is no additional structural or hemodynamically significant valvular disease Pulmonary Function Summary: 05/08/2018 IMPRESSION Normal pulmonary function study. Clinical correlation recommended. For comparison purposes, this study was compared to previous one from 10/30/2015 and 12/15/2015, the patient has a stable FVC and basically stable, mildly improved FEV1 of a total of 70 cc. Clinical correlation recommended. Anesthesia Assessment and Plan Anesthesia History Personal History: No History of Anesthesia Complications Family History: No Family History of Anesthesia Complications Exercise Tolerance Exercise Tolerance: Metabolic Equivalents>4 Pertinent Negatives Pertinent Negatives: No Symptoms of GERD and No History of CVA/TIA Cardiac & Pulmonary Exam Cardiac Exam: Normal S1/S2 Heart Sounds Pulmonary Exam: Clear Bilateral Breath Sounds Implantable Cardiac Device Does patient have a Pacemaker or an ICD?: No Airway Exam Known Difficult Airway: No Mallampati Class: 1 Mouth Opening: Normal (> 3cm) Thyromental Distance: Greater than 3 cm Neck Range of Motion: Full ROM Neck Circumference: Normal Teeth Condition: Generalized Poor Dentition ASA Classification ASA Score: ASA 3 Emergency Case?: No NPO Status NPO Status: NPO Clears >2 hours, Solids >8 hours Anesthesia Plan Resuscitation Status: Full Code Anesthesia Technique: General Anesthesia Airway Planned: Natural Airway Monitors Used: Standard Monitors
[2022-04-17] MEDS: Lactated Ringers 1,000 ML 80 ML IV (07:08)
[2022-04-17 07:31] VITALS: BMI 44.7
--- NOTE | 2022-04-17 07:52 | BOWEL_PTH ---
PATIENT: Shiloh Anderson LOC: [facility] U#:[id number] AGE/SX: 76/F ROOM: RE04/17/[address]: Sarina Carrillo MD : [id number] BED: DIS: 04/17/2022 SPEC #: [id number] RECD: 04/17/22 12:39 STATUS: CHRISTOPHER REMarc #: [id number] MARY: 04/17/22 07:[address]: Sarina Carrillo DEPT: Surgical Specimen RECD BY: Shahla العراقي ENTERED: 04/17/22 12:43 SP TYPE: Bowel OTHR DR: Wilma Nance V Tissues: 1 - BIOPSY BOWEL Procedures: GROSS AND MICRO LEVEL 4 IMMUNOPEROXIDASE STAIN Comments: [id number]
[2022-04-17] MEDS: Endoscopic Tattoo 5 ML SYR IJ (07:56)
[2022-04-17 08:05] VITALS: BP 119/86; PULSE 67; RESP 16; TEMP 36.6; O2SAT 96
[2022-04-17 08:35] VITALS: BP 113/73; PULSE 70; RESP 16; TEMP 36.4; O2SAT 95
--- NOTE | 2022-04-17 08:49 | W.ANESPOSTOP ---
Postoperative Evaluation Date, Time and Location Date Performed: 04/17/22 Time Performed: 08:49 Patient Location: Day Surgery Unit Vital Signs Most Recent Imported Vital Signs: Most Recent Vital Signs Temp Pulse Resp BP Pulse Ox 36.6 C 67 16 119/86 96 04/17/22 08:05 04/17/22 08:05 04/17/22 08:05 04/17/22 08:05 04/17/22 08:05 Assessment Mental Status: Awake (Alert & Oriented to Patient Baseline) Airway and Respiratory Function: Patent airway with normal (patient baseline) respiratory exam Cardiovascular Function: Hemodynamically Stable Hydration Status: Adequately Hydrated Nausea & Vomiting: No Nausea or Vomiting Pain: Pt. Denies Any Pain Peripheral Nerve Block: Patient did not receive a nerve block
== END 2022-04-17 09:40 | disposition home or self-care (01) ==
PROVIDERS: PCP Family Medicine; Visit Provider Surgery
PROC: 0DJD8ZZ Inspection of Lower Intestinal Tract, Via Natural or Artificial Opening Endoscopic (ICD-10-PCS; CPT 45378; principal; 2022-04-17 07:30)
DX: Z12.11 Encounter for screening for malignant neoplasm of colon (principal); K63.89 Other specified diseases of intestine; K57.30 Diverticulosis of large intestine without perforation or abscess without bleeding; I10 Essential (primary) hypertension; G47.33 Obstructive sleep apnea (adult) (pediatric); E66.9 Obesity, unspecified; Z68.41 Body mass index [BMI] 40.0-44.9, adult; C18.9 Malignant neoplasm of colon, unspecified
CPT/HCPCS: 45380; 88305; 88361

== ENCOUNTER → 2022-04-23 13:11 | Outpatient (BNVA) | payer MEDICARE, BC, SELFPAY | PROVIDERS: PCP Family Medicine; Referring Provider Family Medicine; Visit Provider Surgery | DX: C18.9 Malignant neoplasm of colon, unspecified (principal) | CPT/HCPCS: 99212; 99213 ==

== ENCOUNTER → 2022-04-29 02:00 | Outpatient (CLI) | payer MEDICARE, BC, SELFPAY ==
--- NOTE | 2022-04-29 07:30 | DI.CT_ITS ---
Exam(s) CT CHEST/ABD/PEL W EXAM: CT CHEST/ABD/PEL W CLINICAL HISTORY: new Dx of colon cancer at 60 cm,c18.9. TECHNIQUE: Imaging Protocol: Axial computed tomography images with coronal and sagittal reformatted images were created and reviewed CONTRAST MATERIAL: Intravenous: Omnipaque 350 Contrast volume:100 ml Oral: yes COMPARISON: CT,NM,TMT NM MPI REST STRESS GRP from 03/12/2022 FINDINGS: CHEST: Tracheobronchial tree: Patent where visualized. Mediastinum and Lesly: No dominant adenopathy or fluid collection. Pulmonary parenchyma: No consolidation or dominant measurable mass. Pleura: No effusion or pneumothorax. Lymph nodes: Within normal limits. Aorta: Thoracic portion non-dilated. Heart: Normal size. Mild coronary artery calcification. Bones: Prominent endplate osteophytes. No lytic or blastic lesions. ABDOMEN: Liver: Enlarged. Hepatic steatosis. No measurable mass. Gallbladder and biliary tract: No radiodense calculus or dilation. Pancreas: Normal density, no abnormal calcifications or inflammatory process. Spleen: Normal. Kidneys: Normal size, contour and axis. No radiodense stones or obstructive uropathy. Renal cysts. No suspicious masses seen. Adrenal glands: No masses seen. Aorta: Abdominal portion non-dilated. Tortuous. Atherosclerotic changes. Lymph nodes: Within normal limits. Soft tissues: Small fatty containing umbilical hernia. PELVIS: Bladder: Symmetric distention, no gross wall thickening. Bowel: Severe diverticulosis sigmoid region. Colon is mainly collapsed. No mass is identified. No obstruction or bowel wall thickening. Peritoneal cavity: No ascites, collection or mesenteric inflammatory response. Bones: Prominent endplate osteophytes and degenerative disc changes. Hardware lower lumbar spine. L eft hip prosthesis creates artifact. Reproductive organs: Within normal limits. IMPRESSION: Severe diverticulosis. No colonic mass is visible. No evidence of metastatic disease in the chest a bdomen or pelvis. RADIATION DOSE DELIVERED: 2,344.97mGy.cm Total DLP DATA REPOSITORY: All CT scans at this facility are submitted to the National Radiology Data Registry (NRDR) Dose Index Registry (DIR) with the [employer] ([employer]). RADIATION OPTIMIZATION: All CT scans at this facility use at least one of these dose optimization te chniques: automated exposure control; mA and/or kV adjustment per patient size (includes targeted exa ms where dose is matched to clinical indication); or iterative reconstruction.
[2022-04-29 10:17] LABS: Abs Immature Grans 0.03 10^3/uL (0.0-0.06); Absolute Basophil Count 0.07 10^3/uL (0.0-0.2); Absolute Eosinophil Count 0.31 10^3/uL (0.0-0.7); Absolute Lymphocyte Count 2.18 10^3/uL (1.2-3.4); Absolute Neutrophil Count 2.97 10^3/uL (1.2-6.7); Basophils % 1.2; Eosinophils % 5.1; HCT 43.2 % (36.0-46.0); HGB 14.2 g/dL (11.2-15.7); Immature Grans % 0.5; MCH 32.2 pg (27.0-33.0); MCHC 32.9 % (32.0-36.0); MCV 98 fL (80-95); Monocytes % 8.3; Neutrophils % 48.9; Platelet Count 208 10^3/uL (130-400); RBC 4.41 10^6/uL (3.93-5.22); RDW 12.8 % (11.7-14.6); RDW-SD 46.2 fL; WBC 6.06 10^3/uL (4.4-10.8)
[2022-04-29 10:41] LABS: ALT 36 U/L (14-59); AST 33 U/L (15-37); Albumin 3.7 g/dL (3.4-5.0); Alkaline Phosphatase 68 U/L (46-116); Anion Gap 10.8 mmol/L (3-11); BUN 22 mg/dL (7-18); Bilirubin, Total 0.6 mg/dL (0.2-1.0); CO2 25.2 mmol/L (21.0-32.0); CREATININE 0.9 mg/dL (0.55-1.02); Calcium 9.6 mg/dL (8.5-10.1); Chloride 106 mmol/L (98-107); Estimated GFR 65.44 (mL/min/1.73m2); Glucose 92 mg/dL (74-106); Potassium 4.1 mmol/L (3.5-5.1); Sodium 142 mmol/L (136-145); Total Protein 7.4 g/dL (6.4-8.2)
[2022-04-29] MEDS: Barium Sulfate 2% W/V-Berry Smoothie 450 ML BTL 900 ML PO (12:26)
[2022-04-29 19:20] LABS: CEA 2.8 ng/mL (See Note)
== END ==
PROVIDERS: PCP Family Medicine; Visit Provider Surgery
DX: C18.9 Malignant neoplasm of colon, unspecified (principal); Z12.89 Encounter for screening for malignant neoplasm of other sites; K76.0 Fatty (change of) liver, not elsewhere classified; K42.9 Umbilical hernia without obstruction or gangrene; K57.30 Diverticulosis of large intestine without perforation or abscess without bleeding
CPT/HCPCS: 74177; 80053; 71260; 82378; 85025

== ENCOUNTER → 2022-05-01 14:50 | Outpatient (BNVA) | payer MEDICARE, BC, SELFPAY | PROVIDERS: PCP Family Medicine; Referring Provider Family Medicine; Visit Provider Surgery | DX: C18.9 Malignant neoplasm of colon, unspecified (principal) | CPT/HCPCS: 99213; 99215 ==

== ENCOUNTER 2022-05-06 11:54 | Outpatient (CLI) | payer MEDICARE, BC, SELFPAY | END 2022-05-06 11:55 | disposition home or self-care (01) | LOC: LBO 12:00 | PROVIDERS: PCP Family Medicine; Visit Provider Surgery | DX: C18.9 Malignant neoplasm of colon, unspecified (principal); Z01.818 Encounter for other preprocedural examination; Z01.812 Encounter for preprocedural laboratory examination | CPT/HCPCS: 36415; 86850; 86900; 86901 ==

== ENCOUNTER 2022-05-08 07:52 | Inpatient (IN) | payer MEDICARE, BC, SELFPAY ==
[2022-05-08] VITALS (62 sets, daily range): BP systolic 104–154; BP diastolic 34–105; PULSE 40–100; RESP 18–24; TEMP 36.3–37.1; O2SAT 89–98; BMI 45.0
--- NOTE | 2022-05-08 06:00 | RT.EKG_ITS ---
APPROVED REPORT Exam: Resting ECG Reason for Exam: Pre-op EKG Patient Location: I HR:73 bpm ECG Measurements Heart Rate 73 AXIS TX [id number] P [id number] QRSd 105 QRS 49 QT 401 T 57 QTc 444 Conclusion Accelerated junctional rhythm...absent P waves, accele'd V-rate May be sinus with long first-degree AV block
--- NOTE | 2022-05-08 06:43 | ROE_ITS ---
Date of service: 05/08/22 Time of Service: 11:43 Operative Note Operative Note DATE OF PROCEDURE: 05/08/22 PRE-OP DIAGNOSIS: colon cancer POST-OP DIAGNOSIS: same PROCEDURE: Transverse colon hemicolectomy with anastamosis SURGEON: Sarina Carrillo ASSISTING SURGEON: Asher Jennings ANESTHESIA TYPE: General LMA/ETT and Epidural Refer to Anesthesia Record ESTIMATED BLOOD LOSS: 50 PATHOLOGY: other (transverse colon) COMPLICATIONS: None Patient was transported to: PACU Patient's condition: stable Indications: Shiloh is here today to discuss a laparoscopic hemicolectomy for her newly diagnosed colon cancer.? I reviewed in detail a laparoscopic hemicolectomy as well as possible open hemicolectomy.? We discussed the risks, benefits and complications.? ACS NSQIP calculator predicted higher risk of serious complication at 16.2%. Risk of pneumonia, surgical site infection, cardiac event, ileus and readmission were all increased. These risks were discussed with Gianna as well as return to surgery for an anastamotic leak. I spend 45 minutes with Esperanza discussing the surgery, its complications and the pre-, travis-, and postop expectations. We reviewed the ERAS protocol. Risks, benefits and complications have been reviewed. Complications include but are not limited to bleeding, infection, anastamotic leak, injury to adjacent bowel or other organs, inability to do laparoscopicaly and adverse reaction to the medications. Questions were entertained and answered to their satisfaction and they wished to proceed. No guarantees were given or implied. Findings: Tatoo was in the mid-transverse colon. NO palpable liver lesions Procedure Description: After informed consent was obtained the patient was taken to the PACU and placed on a sitting position on the gurney. An epidural was placed by anesthesia. The patient was then brought to the operating room and placed in a supine position of the operating table. Monitors were applied and the patient was placed under general anesthesia and intubated without difficulty. ONce intubated a calvin catheter was placed in a standard fashion. Next barehugger blancket was placed on her lower extremities and secured. Her abdomen was then prepped and draped in a standard fashion using chlkorhexidine. At this poin t a time out was done and the patients name, , allergies to medications, procedure to be done, DVT prophilaxis, antibiotic prophilaxis was reviewed. Fire risk as assessed. Next 0.25% Bupivocaine was injected into the dermis and subcutaneous tissue just above the umbilicus. Dissection was done with hemostat through the subcutaneous tissue down to the fascia. The fascia was grasped with cockers and a small incision was made. A 5 mm port was then placed under direct visualization into the abdomen. The abdomen was insufflated and one more 5 mm posrt was placed in the LLQ and one above the pubic symphasis. The patient was rotated to the right and the head was brought down. I then inspecyted the descending colon from the splenic flexure down to the pelvic rim. I could not find the tatooed area. I attempted to look at the transverse colon, but her omentum was very large, thick and heavy. I struggled laparoscopically to try and lift it out of the way so I could look foir the tattoe. I made the decision to go to an open procedure. The mayberry and ports were removed. The local anesthetic was injected into the dermis and an incision was made from the umbilicus towards the subxiphoid area, measuring 10 cm. Dissection was done with cautery down to the fascia. The fascia was entered sharply. While my finger was under the fascia to protect the intestine from injury the entiure length of the incision was opened. A costa retractor was placed to elevated the left abdominal wall. I ran the dsigmoid, descending colon. NO tattoe was appreciated. I then ran the transverse colon and the tumor was identified in the mid-transverse colon. 10 cm were measured to wither side of the mass. A small opening was created in the mesentary. The omentum was dissected away from the transverse colon with a ligasure. Once the omentum was removed the transverse colon was transected using an 80 KINZA stapler, 10 cm proximal and 10 cm distal. The mesentary was transected with ligasure. The specimen was marked at the distal staple line and placed in formalin. A side to side anastamosis was created with an 80 KINZA stapler in a standard fashion. The enterotomy that was created was closed in 2 layers with 3-0 Vicryl and 3-0 silk pop offs. The anastamosis was placed back into the abdomen and covered with the omentum. The abdomen was irrigated with 1 L of warm NS. The fluid was suctioned. Interseed was placed into the abdomen. The fashia was closed with #1 Vicryl running suture. The subcutaneous tissue was irrigated and dried. The subcutaneous tissue was re-approximated with 3-0 Vicryl. The dermis was closed with amy. The skin was cleaned and dried and a MARYURI was applied. The patient was transfered to the [facility] and woken up and extubated. The patient was taken up to the ICU. There were no immediate complications,
[2022-05-08 08:23] LABS: Source Nasal/Nares
--- NOTE | 2022-05-08 08:27 | ANES.PREOP_ITS ---
General Info Date of Service Date Performed: 05/08/22 Height: 5 ft 3 in Weight: 115.269 kg Body Mass Index (BMI): 45.0 Surgical Procedure: Operation Date: 05/08/22 11:20 Proposed Procedure Side Surgeon p Hemicolectomy Laparoscopic/Hand Assist Left Sarina Carrillo MD Meds Allergies and Home Medications Allergies Allergy/AdvReac Type Severity Reaction Status Date / Time formoterol [From Dulera] Allergy Intermediate unknown Verified 05/08/22 08:28 mometasone furoate AdvReac Intermediate thrush Verified 05/08/22 09:11 [From Dulera] [email or web address] [From Myrbetriq] AdvReac Increased Verified 05/07/22 10:52 blood pressure Home Medication Medication Instructions Recorded levothyroxine 175 mcg tablet 175 mcg PO DIRECTED 09/17/14 vit D3-folic acid-vit B2-B6-B12 1 tab PO DAILY 01/26/15 2,000 unit-800 mcg-0.32 mg tablet (Folgard) albuterol sulfate 90 mcg/actuation 2 puff inhalation DIRECTED PRN 03/13/16 aerosol inhaler (ProAir HFA) folic acid 1 mg tablet 1 mg PO DAILY 08/15/17 multivitamin (Daily-Wayne tablet) 1 ea PO DAILY 08/15/17 estradiol 0.01% (0.1 mg/gram) 2 g vaginal twice weekly #1 tube 04/02/19 vaginal cream (Estrace) cane #1 ea 02/24/20 celecoxib 200 mg capsule (Celebrex) 200 mg PO BID 02/24/20 naloxone 4 mg/actuation nasal 4 mg intranasal Q3M PRN 02/24/20 spray (Narcan) bupropion HCl 150 mg tablet,12 hr 150 mg PO DAILY 07/04/20 sustained-release Oxygen #1 ea 02/15/21 losartan 25 mg tablet 25 mg PO DAILY 06/14/21 atenolol 25 mg tablet 12.5 mg PO HS 09/04/21 oxycodone-acetaminophen 10 mg-325 2 tab PO TID PRN 09/04/21 mg tablet (Percocet) semaglutide 0.25 mg or 0.5 mg (2 0.25 mg subcut QWEEK 04/23/22 mg/1.5 mL) subcutaneous pen injector (Ozempic) bisacodyl 5 mg tablet,delayed 5 mg PO ONCE #8 tabs 05/01/22 release (Dulcolax (bisacodyl)) metronidazole 500 mg tablet See Rx Instructions PO .COMPLEX #8 05/01/22 tabs neomycin 500 mg tablet 500 mg PO ONCE #8 tabs 05/01/22 ondansetron 8 mg disintegrating 8 mg PO ONCE #3 tabs 05/01/22 tablet polyethylene glycol 3350 17 gram 255 g PO DAILY #15 ea 05/01/22 oral powder packet ciprofloxacin HCl 500 mg tablet 500 mg PO .COMPLEX #1 tab 05/03/22 (Cipro) morphine 15 mg immediate release 15 mg PO BID PRN 05/06/22 tablet oxybutynin chloride 5 mg 5 mg PO DAILY #90 tabs 05/06/22 tablet,extended release 24 hr acetaminophen 500 mg tablet 1,000 mg 05/08/22 (Tylenol Extra Strength) Current Visit Medications: Current Medications Generic Name Dose Route Start Last Admin Trade Name Freq PRN Reason Stop Dose Admin Acetaminophen 1,000 mg 05/08/22 06:00 Acetaminophen 500 Mg Tab PO 06/06/22 23:59 PREOP LORI Alvimopan 12 mg 05/08/22 07:00 Alvimopan 12 Mg Cap PO PREOP LORI Celecoxib 200 mg 05/08/22 06:00 Celecoxib 200 Mg Cap PO 06/06/22 23:59 PREOP LORI Gabapentin 600 mg 05/08/22 06:00 Gabapentin 300 Mg Cap PO 06/06/22 23:59 PREOP LORI Ringer's Solution 1,000 mls @ 80 mls/hr 05/08/22 06:00 IV 06/06/22 23:59 [facility] Ampicillin Sodium/Sulbactam 100 mls @ 200 mls/hr 05/08/22 06:00 Sodium 3 gm/ Sodium Chloride IVPB 05/08/22 18:00 PREOP LORI IV Miscellaneous Supplies 1 each 05/08/22 06:00 Iv Access IV 06/06/22 23:59 DIRECTED LORI Sodium Chloride 0 ml 05/08/22 06:00 Normal Saline Flush 10 Ml Syr IV 06/06/22 23:59 PRN PRN Sodium Chloride 0 ml 05/08/22 06:00 Normal Saline 10 Ml Vial IJ 06/06/22 23:59 DIRECTED PRN Sterile Water 0 ml 05/08/22 06:00 Water,Injection,Sterile 10 Ml Vial IJ 06/06/22 23:59 DIRECTED PRN PFSH Active Problems Active Problems: Problem Status Onset Code Severe obesity E66.01 Obstructive sleep apnea syndrome G47.33 Colon cancer C18.9 Medical History Medical History Abnormal auditory perception (01/10/14) Acquired pes planus Acute bronchospasm Allergic rhinitis Anxiety 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 Asthma, moderate persistent BCC (basal cell carcinoma) Bilateral carpal tunnel syndrome Bilateral cataracts Body mass index (BMI) of 40.0-44.9 in adult Cerumen impaction (02/14/14) Cervicalgia Change in voice (01/10/14) Chronic pain Cigarette nicotine dependence CKD (chronic kidney disease) Colonic polyp Coordination problem COPD (chronic obstructive pulmonary disease) Degenerative disc disease, lumbar Diverticulosis DJD (degenerative joint disease) Dysphonia (02/14/14) Dyspnea Edema Fibromyalgia First degree AV block Foot pain Fusion of lumbosacral spine Gastroesophageal reflux disease (01/10/14) H/O urinary frequency Hamstring tendonitis History of prediabetes HTN (hypertension) Hx of colonic polyps Hypothyroidism Idiopathic sleep related nonobstructive alveolar hypoventilation Iritis Knee pain, bilateral Left hip pain Leg wound, left Lumbar stenosis Major depression Mixed stress and urge urinary incontinence Mobitz II Known to cardiology since 2011, medical management. Myalgia Obesity Onychodystrophy SUGEY on CPAP uses 2L O2 Ovarian mass Periodic limb movement disorder (10/23/18) Peripheral neuropathy Recurrent UTI (01/30/17) Restless leg syndrome Rotator cuff syndrome Sacroiliac joint pain Sensory hearing loss, bilateral (02/14/14) Spinal stenosis Tobacco use Trigger finger Urgency incontinence (01/30/17) Visual acuity reduced Medical History Comments:: On 2L O2 at night Surgical History Surgical History (Updated 05/08/22 @ 08:41 by Serenity Flores) H/O spinal fusion L4-S1 History of carpal tunnel release of both wrists History of hip replacement History of knee replacement Hx of colonoscopy Hx of shoulder surgery Left Hx of total knee replacement Right distal ulnar fracture s/p ORIF DOS: 07/27/20 Tobacco Smoking/Tobacco Use Status: Current every day Tobacco Type: cigarettes Smoking packs per day: 1 Smoking cigarettes per day: 20.0 Alcohol Alcohol Intake: current Alcohol intake frequency: 3 or more drinks per day Alcohol type: beer Substance Use Substance use: Never Substance use type: does not use Vital Signs and Lab Results Lab Results Blood Type / Crossmatch: Patient ABO/Rh O Positive 05/06/22 Antibody Screen NEGATIVE 05/06/22 Complete Blood Count: White Blood Count 6.06 10^3/uL (4.4-10.8) 04/29/22 10:00 Red Blood Count 4.41 10^6/uL (3.93-5.22) 04/29/22 10:00 Hemoglobin 14.2 g/dL (11.2-15.7) 04/29/22 10:00 Hematocrit 43.2 % (36.0-46.0) 04/29/22 10:00 Platelet Count 208 10^3/uL (130-400) 04/29/22 10:00 Complete Metabolic Panel: Sodium 142 mmol/L (136-145) 04/29/22 10:00 Potassium 4.1 mmol/L (3.5-5.1) 04/29/22 10:00 Chloride 106 mmol/L (98-107) 04/29/22 10:00 Carbon Dioxide 25.2 mmol/L (21.0-32.0) 04/29/22 10:00 BUN 22 mg/dL (7-18) H 04/29/22 10:00 Creatinine 0.9 mg/dL (0.55-1.02) 04/29/22 10:00 Est GFR (CKD-EPI 2020) 65.44 (mL/min/1.73m2) 04/29/22 10:00 Calcium 9.6 mg/dL (8.5-10.1) 04/29/22 10:00 Albumin 3.7 g/dL (3.4-5.0) 04/29/22 10:00 Glucose 92 mg/dL (74-106) 04/29/22 10:00 Liver Function Panel: Alanine Aminotransferase (ALT/SGPT) 36 U/L (14-59) 04/29/22 10: 00 Aspartate Amino Transf (AST/SGOT) 33 U/L (15-37) 04/29/22 10:00 Coagulation Panel: No Data to Display Cardiac Panel: No Data to Display Arterial Blood Gas: No Data to Display Venous Blood Gas: No Data to Display Pancreas Panel: No Data to Display Thyroid Panel: No Data to Display Infectious Disease: Coronavirus 2019 Source Nasal/Nares 05/08/22 08:12 Blood Cultures: No Data to Display Toxicology Panel: No Data to Display Imaging and Studies Imaging and Studies Study information below may be from another EMR and interpreted by another provider. Please see original notes in EMR for more complete details. EKG Summary: 01/11/2022 Conclusion Sinus rhythm...normal P axis, V-rate 60- 99 Prolonged SD interval...SD >220, V-rate 50- 90 Stress Test Summary: 03/22/2022 Clinical Reason for Termination: Fatigue, Dyspnea Stress Symptoms: General Fatigue, Dyspnea Exercise duration: 4 min00 sec Exercise capacity: 2.29 METs Angina Score: None Rate Pressure Product: 73624 Stress ECG Conclusion 1. Resting electrocardiogram showed first-degree AV block, periods of Mobitz 1 second-degree AV block 2. Patient exercised on a Billy protocol and completed a workload of 2.29 METS 3. Peak heart rate achieved was 88% of predicted for age 4. Electrocardiographic portion of the test was negative for myocardial ischemia 5. PVCs were seen 6. See MPI report Stress Test Summary STAGETime (mins)Speed (mph)Grade (%)[id number] [id number]/64 Dlibkmfm26717/8293% 1 min urusmqpk24388/9897% 3 min [id number]/9098% 6 min [id number]/7098% Patient ambulated on treadmill with a manual modified Billy protocol due to patient's unsteady gait and physical limitation. Patient ambulated for 4 minutes on treadmill with speed of 1.5-2.0 mph and 0%- 2% grade. SpO2 during ambulation was 86% - 91%. Patient reported mild dyspnea during exercise stress which resolved in first minute of recovery. Target heart rate was achieved under these treadmill settings. Patient tolerated testing well. MPI Conclusion Normal myocardial perfusion without evidence of ischemia or prior infarction EF is 66%, wall motion is normal Clinical Reason for Termination: Fatigue, Dyspnea Stress Symptoms: General Fatigue, Dyspnea Exercise duration: 4 min00 sec Exercise capacity: 2.29 METs Angina Score: None Rate Pressure Product: 12515 Stress ECG Conclusion 1. Resting electrocardiogram showed first-degree AV block, periods of Mobitz 1 second-degree AV block 2. Patient exercised on a Billy protocol and completed a workload of 2.29 METS 3. Peak heart rate achieved was 88% of predicted for age 4. Electrocardiographic portion of the test was negative for myocardial ischemia 5. PVCs were seen 6. See MPI report MPI Conclusion Normal myocardial perfusion without evidence of ischemia or prior infarction EF is 66%, wall motion is normal Echocardiogram Summary: 03/26/2022 Conclusion Normal left ventricular wall thickness and chamber size. Estimated ejection fraction is 60% Wall motion is normal Normal right ventricular size and systolic function Both atria are normal in size Trileaflet sclerotic aortic valve without stenosis or regurgitation There is no additional structural or hemodynamically significant valvular disease Pulmonary Function Summary: 05/08/2018 IMPRESSION Normal pulmonary function study. Clinical correlation recommended. For comparison purposes, this study was compared to previous one from 10/30/2015 and 12/15/2015, the patient has a stable FVC and basically stable, mildly improved FEV1 of a total of 70 cc. Clinical correlation recommended. Anesthesia Assessment and Plan Anesthesia History Personal History: No History of Anesthesia Complications Family History: No Family History of Anesthesia Complications Exercise Tolerance Exercise Tolerance: Metabolic Equivalents<4 Pertinent Negatives Pertinent Negatives: No Symptoms of GERD Cardiac & Pulmonary Exam Cardiac Exam: Normal S1/S2 Heart Sounds Pulmonary Exam: Wheezing Present Implantable Cardiac Device Does patient have a Pacemaker or an ICD?: No Airway Exam Known Difficult Airway: No Mallampati Class: 1 Mouth Opening: Normal (> 3cm) Thyromental Distance: Less than 3 cm Neck Range of Motion: Full ROM Neck Circumference: Normal Teeth Condition: Generalized Poor Dentition ASA Classification ASA Score: ASA 3 Emergency Case?: No NPO Status NPO Status: NPO Clears >2 hours, Solids >8 hours Anesthesia Plan Resuscitation Status: Full Code Anesthesia Technique: General Anesthesia Airway Planned: Endotracheal Tube Pain Management: Epidural Monitors Used: Standard Monitors, Arterial Line (+/-) and Central Line (+/-) Preoperative Comments:: 76 yo female for hand assisted colectomy for cancer. Sig PMHx: BMI 45, asthma/COPD, CKD (GFR 65 10/3), anxiety, chronic pain, fibromyalgia, mobitzII/first degree (junctional today), GERD, HTN, hypothyroid, sleep apnea, spinal stenosis, daily smoker, daily EtOH. Previous Anes: lincoln 2, grade 2b.
[2022-05-08] MEDS: Acetaminophen 500 MG TAB 1000 MG PO (08:53)
[2022-05-08] MEDS: Celecoxib 200 MG CAP PO ×2 (08:54→20:15)
[2022-05-08] MEDS: Gabapentin 300 MG CAP 600 MG PO (08:54)
[2022-05-08] MEDS: Lactated Ringers 1,000 ML 80 ML IV ×2 (09:05→14:51)
[2022-05-08] MEDS: AMPICILLIN/SULBACTAM 3 GM in Normal Saline 100 ML IVPB (11:43)
[2022-05-08] MEDS: ELECTROLYTE-R SOLUTION 1,000 ML 30 ML IV (12:10)
--- NOTE | 2022-05-08 12:30 | BOWEL_PTH ---
PATIENT: Shiloh Anderson LOC: [id number]#:[id number] AGE/SX: 76/F ROOM: 206 RE05/08/[address]: Sarina Carrillo MD : [id number] BED: A DIS: 05/16/2022 SPEC #: [id number] RECD: 05/08/22 13:14 STATUS: CHRISTOPHER REQ #: [id number] MARY: 05/08/22 12:[address]: Sarina Carrillo DEPT: Surgical Specimen RECD BY: Shahla العراقي ENTERED: 05/08/22 13:15 SP TYPE: Bowel OTHR DR: Wilma Nance V Tissues: 1 - BOWEL RESECTION(OTHER) Procedures: GROSS AND MICRO LEVEL 6 Comments: [id number]
--- NOTE | 2022-05-08 12:31 | W.ANESNEU ---
Epidural/Spinal Catheter Date Performed: 05/08/22 Procedure Start: 10:50 Procedure Stop: 11:10 Requesting Provider: Sarina Carrillo Procedure Location: Day Surgery Unit Reason Performed: Postoperative Analgesia Standard Monitors Applied: ECG, Blood Pressure and SpO2 Patient Position: Sitting Sedation Given (Indicate Dose Given): Versed IV (1 mg + 1 mg) Dose:: 2 mg Patient Mental Status: Awake Sterility: Hand Hygiene, Surgical Cap, Surgical Mask, Sterile Gloves, Sterile Drape/Sheet and Chlorhexidine Procedure Location: L1-L2 Interspace Epidural Needle: TuSenscienty 17 Guage Needle Length: 3.5 Inch Needle Approach: Midline Epidural Procedure: Skin Prepped, Sterile Drape Placed, 1% Lidocaine to skin and subcutaneous tissue with 25G needle and ROSEMARY to Saline Used Catheter Placed?: Catheter Placed Test Dose (Indicate Dose Given): 3ml 1.5% Lidocaine with 1:200K Epinephrine Given Loss of Resistance Depth (cm): 6 Catheter depth at skin (cm): 12 Dressing: Sorbaview Dressing Placed, Mastisol Used and Dressing reinforced with Tape Epidural Provider Bolus (Indicate Dose Given): None Given Additives (Indicate Dose Given ): None Infusion Medication: No Infusion Started Block Level: N/A Paresthesia: None Ultrasound: Used to savannah site Number of Attempts (See previous attempts in note section): 1 Procedure Tolerated: No Complications Procedure Outcome: Successful Procedure Comment:: good ROSEMARY, on aspiration prior to test dose, clear fluid noted to come back to ~ 0.5 mL savannah. test dose given with no change in the sensation of her legs after 10 minutes. Performed By: Sada Alcantar Supervised By: Augusto Zazueta
[2022-05-08] MEDS: Bupivacaine 0.25% Pres-Free 30 ML VIAL (12:41)
[2022-05-08] MEDS: FentaNYL/ROPIvacaine 2 mcg/ml and 0.1% 200 ML CADD Cassette EP (13:29)
[2022-05-08 13:54] LABS: COVID-19 PCR Negative (Negative)
[2022-05-08] MEDS: ePHEDrine 25 MG/5 ML Syringe ×2 (14:35→14:50)
--- NOTE | 2022-05-08 15:07 | W.ANESPOSTOP ---
Postoperative Evaluation Date, Time and Location Date Performed: 05/08/22 Time Performed: 15:08 Patient Location: Day Surgery Unit Vital Signs Most Recent Imported Vital Signs: Most Recent Vital Signs Temp Pulse Resp BP Pulse Ox 36.3 C L 56 L 20 114/47 L 95 05/08/22 14:40 05/08/22 14:40 05/08/22 14:40 05/08/22 14:40 05/08/22 14:40 Pain Score Most Recent Pain Score: Most Recent Pain Score Pain Level 0 05/08/22 14:40 Assessment Mental Status: Awake (Alert & Oriented to Patient Baseline) Airway and Respiratory Function: Patent airway with normal (patient baseline) respiratory exam Cardiovascular Function: Hemodynamically Stable Hydration Status: Adequately Hydrated Nausea & Vomiting: No Nausea or Vomiting Pain: Pain is tolerable per patient Peripheral Nerve Block: Other (epidural in place. )
--- NOTE | 2022-05-08 17:22 | NUR.NOTE ---
Pt requested i find Simona called # on contact list and undated Simona. she requested I call her other daughter Tanna. called # in contacts and left voicemail
[2022-05-08] MEDS: Famotidine 20 MG TAB 40 MG PO (20:15)
[2022-05-08] MEDS: Acetaminophen 325 MG TAB 650 MG PO (20:16)
[2022-05-08] MEDS: Simethicone 80 MG CHEW PO (20:16)
[2022-05-08] MEDS: oxyCODONE 10 MG TAB PO (20:16)
[2022-05-08] MEDS: traZODone 100 MG TAB PO (20:16)
[2022-05-08] MEDS: Atenolol 25 MG TAB 12.5 MG PO (20:18)
[2022-05-08] MEDS: Normal Saline Flush 10 ML SYR IV (21:15)
[2022-05-09] VITALS (118 sets, daily range): BP systolic 64–136; BP diastolic 38–100; PULSE 34–165; RESP 4–28; TEMP 36.5–37.1; O2SAT 88–97
[2022-05-09] MEDS: Lactated Ringers 1,000 ML 80 ML IV (01:00)
[2022-05-09] MEDS: Levothyroxine 175 MCG TAB PO (06:22)
[2022-05-09 06:26] LABS: Abs Immature Grans 0.06 10^3/uL (0.0-0.06); Absolute Basophil Count 0.01 10^3/uL (0.0-0.2); Absolute Lymphocyte Count 0.96 10^3/uL (1.2-3.4); Absolute Neutrophil Count 8.82 10^3/uL (1.2-6.7); Anion Gap 9.1 mmol/L (3-11); BUN 17 mg/dL (7-18); Basophils % 0.1; CO2 22.9 mmol/L (21.0-32.0); Calcium 8.8 mg/dL (8.5-10.1); Chloride 105 mmol/L (98-107); Estimated GFR 57.66 (mL/min/1.73m2); Glucose 114 mg/dL (74-106); HCT 37.8 % (36.0-46.0); HGB 12.8 g/dL (11.2-15.7); Immature Grans % 0.6; Lymphocytes % 9.1; MCH 32.5 pg (27.0-33.0); MCHC 33.9 % (32.0-36.0); MCV 96 fL (80-95); MPV 10.6 fL (8.0-11.0); Monocytes % 6.6; Neutrophils % 83.6; Platelet Count 158 10^3/uL (130-400); Potassium 4.3 mmol/L (3.5-5.1); RBC 3.94 10^6/uL (3.93-5.22); RDW 12.6 % (11.7-14.6); RDW-SD 44.9 fL; Sodium 137 mmol/L (136-145); WBC 10.55 10^3/uL (4.4-10.8)
[2022-05-09] MEDS: Enoxaparin 40 MG/0.4 ML SYR SC (08:14)
[2022-05-09] MEDS: Famotidine 20 MG TAB 40 MG PO (08:15)
[2022-05-09] MEDS: Losartan 25 MG TAB PO (08:15)
[2022-05-09] MEDS: Polyethylene Glycol 3350 17 GM PACKET PO (08:15)
[2022-05-09] MEDS: Celecoxib 200 MG CAP PO (08:15)
--- NOTE | 2022-05-09 10:03 | IN_ITS ---
Date of service: 05/09/22 Time of Service: 10:03 PT Notes Visit Reasons: s/p Hemicolectomy for Colon Cancer Physical Therapy Inpatient Initial Evaluation Date: 06/08/2022 Referring Doctor: Terri Carrillo MD PT Orders: PT CONSULT: Limited ability, patient walks with a cane back home Precautions: Fall. Standard. Activity as tolerated. Patient Profile/Admitting Diagnosis: Patient is a 76-year-old female with colon carcinoma and is status post laparosc opic hemicolectomy on postoperative day 1. PMHX: All Active Problems? Severe obesity (Acute) Obstructive sleep apnea syndrome (Acute) Colon cancer (Chronic) Medical History? Abnormal auditory perception (01/10/14) Acquired pes planus Acute bronchospasm Allergic rhinitis Anxiety 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 Asthma, moderate persistent BCC (basal cell carcinoma) Bilateral carpal tunnel syndrome Bilateral cataracts Body mass index (BMI) of 40.0-44.9 in adult Cerumen impaction (02/14/14) Cervicalgia Change in voice (01/10/14) Chronic pain Cigarette nicotine dependence CKD (chronic kidney disease) Colonic polyp Coordination problem COPD (chronic obstructive pulmonary disease) Degenerative disc disease, lumbar Diverticulosis DJD (degenerative joint disease) Dysphonia (02/14/14) Dyspnea Edema Fibromyalgia First degree AV block Foot pain Fusion of lumbosacral spine Gastroesophageal reflux disease (01/10/14) H/O urinary frequency Hamstring tendonitis History of prediabetes HTN (hypertension) Hx of colonic polyps Hypothyroidism Idiopathic sleep related nonobstructive alveolar hypoventilation Iritis Knee pain, bilateral Left hip pain Leg wound, left Lumbar stenosis Major depression Mixed stress and urge urinary incontinence Mobitz II Known to cardiology since 2011, medical management.Myalgia Obesity Onychodystrophy SUGEY on CPAP uses 2L [id number] mass Periodic limb movement disorder (10/23/18) Peripheral neuropathy Recurrent UTI (01/30/17) Restless leg syndrome Rotator cuff syndrome Sacroiliac joint pain Sensory hearing loss, bilateral (02/14/14) Spinal stenosis Tobacco use Trigger finger Urgency incontinence (01/30/17) Visual acuity reduced Surgical History?(Updated 10/11/22 @ 10:55 by Jovany Portillo H/O spinal fusion L4-S1 History of carpal tunnel release of both wrists History of hip replacement History of knee replacement Hx of colonoscopy Hx of total knee replacement Right distal ulnar fracture s/p ORIF DOS: 07/27/20 Social History/Home Situation: Lives alone in a private home with her dog and her horse. Has 1 step to enter with a rail on one side. Independent with indoor/outdoor ambulation using small-based quad rib cane. Equipment Owned/DME: [facility] Subjective: Agreeable to PT consult. Reports 4/10 pain over surgical incision with ambulation activity. Objective: General Observation: Supine in bed. Telemetry monitoring in place. REPAIR SERVICE DISPATCHER pump in place. Smith catheter in place. Mental Status: Alert and oriented as to person, place, time, and purpose. Able to pay attention, focus, and respond appropriately. Pain: 4/10 at site of incision Vital Signs: WNL as closely moitored via tele ROM: Right Upper Extremity: Shoulder Flexion limited to about 80 degrees. Shoulder abduction limited to about 70 degrees. Elbow flexion WFL. Wrist flexion WFL. Functional opening and closing of hand WFL. Left Upper Extremity: Shoulder Flexion limited to about 90 degrees. Shoulder abduction limited to about 80 degrees. Elbow flexion WFL. Wrist flexion WFL. Functional opening and closing of hand WFL. Right Lower Extremity: Hip flexion to 100 degrees only due to abdominal pannus. Hip abduction 100 degrees only due to abdominal pannus. Knee flexion WFL. Ankle dorsiflexion to neutral only. Ankle plantarflexion WFL. Left Lower Extremity: Hip flexion to 100 degrees only due to abdominal pannus. Hip abduction 100 degrees only due to abdominal pannus. Knee flexion WFL. Ankle dorsiflexion to neutral only. Ankle plantarflexion WFL. Strength: Right Upper Extremity: Shoulder flexors 3-/5. Shoulder abductors 3-/5. Elbow flexors 4-/5. Elbow extensors 4-/5. [place] Sander strong. Left Upper Extremity: Shoulder flexors 3-/5. Shoulder abductors 3-/5. Elbow flexors 4-/5. Elbow extensors 4-/5. [place] Belt Sander strong. Right Lower Extremity: Hip flexors 3-/5. Hip abductors 3-/5. Knee flexors 4-/5. Knee extensors 4-/5. Ankle dorsiflexors 3-/5. Ankle plantarflexors 4-/5. Left Lower Extremity: Hip flexors 3-/5. Hip abductors 3-/5. Knee flexors 4-/5. Knee extensors 4-/5. Ankle dorsiflexors 3-/5. Ankle plantarflexors 4-/5. Bed Mobility/Transfers: Supine to sit with hand held assist Sit to stand with contact guard assist Stand to sit with stand by assist Bed to reclining chair stand by assist Reclining chair to bed stand by assist Gait: Instructed patient with level surface ambulation of 100 feet requiring stand by assist using FWW. Matilda decreased. Reported 4/10 pain over surgical incision. Balance: Static Sitting: Normal Dynamic Sitting: Normal Static Standing: Fair Dynamic Standing: Fair Special Tests: Mobility Limitations Standardized Measure [facility]-PAC 6 clicks Basic Mobility Inpatient Short Form: Raw Score: 18 CMS Score: 47% deficit% deficit Informed Consent/Education: Patient was instructed in purpose of PT consult and plan of care. Agreeable to proceed with established PT POC to achieve personal goals. Assessment: Patient is a 76-year-old female with colon carcinoma and is status post laparoscopic hemicolectomy on postoperative day 1. Patient presents with clinical signs and symptoms consistent with current/admitting diagnoses that have resulted to mobility limitations, gait instability, generalized weakness, and overall ADL decline as demonstrated by the following impairment level findings: 1. Generalized weakness 2. Impaired standing balance 3. Impaired activity tolerance 4. Limitation of joint range of motion in B shoulders (chronic) Impairments are contributing to the following functional limitations: 1. Decline in bed mobility skills 2. Decline in transfer skills 3. Difficulty with ambulation without assistive device 4. Increased completion time for mobility ADL performance 5. Increased risk for falls 6. Difficulty with managing steps alone safely Patient is assessed as a 52891 moderate complexity based on the following: History: 76-year-old female with past medical history as indicated above Examination: Demonstrable impairment in strength, balance, and mobility level with underlying impairments and functional limitations as exhibited above as well as deficit score of 47% utilizing the [facility] Mobility Inpatient Short Form Presentation: Evolving Decision Makin moderate complexity Goals: Goals X1 week 1. Supine-Sit independent 2. Sit-Supine independent 3. Sit-Stand independent 4. Stand-Sit independent with [facility] 5. Bed-Chair independent with [facility] 6. Chair-Bed independent with [facility] 7. Independent gait on level surface with use of SBQC for at least 300 feet without report of pain nor dyspnea 8. Independent stair negotiation while holding onto 1 rail for at least 3 steps without report of pain nor dyspnea 9. Independent with home exercise program 10. Good static and dynamic standing balance/tolerance Plan of Care/Treatment Plan: 1-2x/day, 7 days/week x 1 week. Plan of care has been reviewed with the INSTALLER providing the service under Physical Therapy direction. Initiate Physical Therapy intervention for pain management as needed, strengthening, bed mobility, transfers, gait, stairs, balance training, and use of assistive device. DISCHARGE RECOMMENDATIONS: [] Home with no services [] [X] Home with services. Patient will benefit from home health PT services in order to progress mobility level using least restrictive assistive ambulatory device, assess home safety, identify additional equipment needs, and establish a functional maintenance program that will increase ability of patient to remain at home. [] Home with outpatient PT [] [] SNF for continued rehabilitation [] [] Skilled Nursing Care [] [] SNF versus LTC based on ability to participate and progress [] TREATMENT CODE/TIME: 23454 x 20 minutes, 70303 x 11 minutes beginning at 10:03 AM. Thank you for the opportunity to participate in the care of this patient. Rupa Grove PT, DPT, CLT [facility] [place], [place]
[2022-05-09] MEDS: Ondansetron 4 MG/2 ML VIAL IVP (10:06)
--- NOTE | 2022-05-09 10:22 | PGE_ITS ---
Date of Service Date of service: 05/09/22 Time of Service: Assessment and Plan Assessment and plan (1) Colon cancer: Status: Chronic Assessment and plan: POD#1 lap attempted open colon resection for colon cancer- transverse colon. Primary anastomosis Epidural- per anethesia. Basal rate-6 and q 15 min demand entereg cont IS. add in acapella as pt is having lots of secretions today and issues w/ mobilization and clearance no abx encourage ambulation . hold diet and will reeval later today. Ileus pt is slightly ahead on fluids. Will hold IV and re-asses later this afternoon. BNP pd. BP 90's- 100's. encourage ambulation. PT is consulting I did review pulmonary's notes. She felt her components were restrictive and not obstructed. The patient did develop yeast infection from Dulera and did not tolerate it well. I think a lot of her pulmonary issues this morning are from abdominal distention/ ileus. We will hold food at this time and encourage ambulation. If she is still having pulmonary issues in the a.m., we will consult pulmonary for further input. (2) Severe obesity: Status: Acute (3) Obstructive sleep apnea syndrome: Status: Acute (4) Allergic rhinitis: (5) Anxiety 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: (6) Asthma, moderate persistent: (7) BCC (basal cell carcinoma): (8) Chronic pain: (9) Cigarette nicotine dependence: Qualifiers: Substance use status: uncomplicated Qualified Code(s): F17.210 - Nicotine dependence, cigarettes, uncomplicated (10) CKD (chronic kidney disease): (11) COPD (chronic obstructive pulmonary disease): (12) Degenerative disc disease, lumbar: (13) Diverticulosis: (14) Edema: (15) Fibromyalgia: (16) First degree AV block: (17) Gastroesophageal reflux disease: Qualifiers: Esophagitis presence: without esophagitis Qualified Code(s): K21.9 - Gastro-esophageal reflux disease without esophagitis (18) History of prediabetes: (19) HTN (hypertension): (20) Hypothyroidism: (21) Mobitz II: (22) Mixed stress and urge urinary incontinence: (23) Lumbar stenosis: (24) Obesity: (25) SUGEY on CPAP: (26) Restless leg syndrome: Subjective Subjective Interval history since last seen: Pt is doing well. no headaches. No CP or SOB. Pt has a regular cough- she is coughing up white phlegm. no fevers. She is a current smoker. no dysuria. no leg pain or swelling. She feels very distended and nauseated. She is belching and having bad heartburn. last 24 hrs: I: 3460 O (urine): 1000 600cc in last 12 hrs 100c out in last 3 hrs labs reviewed Exam Resp Effort & Inspection: normal respiratory effort and able to speak in complete sentences Auscultation: wheezes lower bilaterally GI Inspection: distended Auscultation: absent bowel sounds Other: PCOS is in place and is clean and dry. Extrem Other: chronic LE edeam. NO redness or acute swelling Objective Last Vital Signs Temp 36.6 C 05/09/22 08:00 Pulse 70 05/09/22 09:01 Resp 18 05/09/22 08:00 BP 117/100 H 05/09/22 09:01 Pulse Ox 91 L 05/09/22 09:12 Laboratory Results - last 24 hr 05/08/22 05/09/22 05/09/22 08:12 05:08 05:08 WBC 10.55 RBC 3.94 Hgb 12.8 Hct 37.8 MCV 96 H MCH 32.5 MCHC 33.9 RDW 12.6 Plt Count 158 MPV 10.6 Immature Gran % 0.6 Neutrophils % 83.6 Lymphocytes % 9.1 Monocytes % 6.6 Eosinophils % 0.0 Basophils % 0.1 Nucleated RBC % 0.0 Absolute Neutrophils 8.82 H Absolute Lymphocytes 0.96 L Absolute Monocytes 0.70 Absolute Eosinophils 0.00 Absolute Basophils 0.01 Sodium 137 Potassium 4.3 Chloride 105 Carbon Dioxide 22.9 Anion Gap 9.1 BUN 17 Creatinine 1.0 Est GFR (CKD-EPI 2020) 57.66 Glucose 114 H Calcium 8.8 SARS-CoV-2 (PCR) Negative Reviewed Pertinent PMH: Yes PAWSS Have you Been Recently Intoxicated or Drunk Within the Last 30 days?: No Have you Ever Experienced Previous Episodes of Alcohol Withdrawal?: No Have you ever Experienced Withdrawal Seizures?: No Have you ever Experienced Delirium Tremens(DT)s?: No Have you ever undergone Alcohol Rehabilitation Treatment (i.e, inpt ot outp atient treatment programs)?: No Have you ever Experienced Blackouts?: No Have you ever Combined Alcohol with other Downers within the last 90 days?: No Have you ever Combined Alcohol with any other Substance of Abuse during the last 90 days?: No Evidence of Increased Autonomic Activity (i.e. HR>120, tremor, sweating, agitation, nausea)?: No Result: 0
[2022-05-09 10:31] LABS: Lab Add On Test DONE
--- NOTE | 2022-05-09 10:31 | PDOC.CMIN ---
- If Service Date Differs Date of service: 05/09/22 Time of Service: 10:31 Care Management Initial Assess REASON FOR HOSPITALIZATION:: s/p hemicolectomy for colon cancer PAST MEDICAL HISTORY/PAST SURGICAL HISTORY:: Medical History . Abnormal auditory perception (01/10/14). Acquired pes planus. Acute bronchospasm. Allergic rhinitis. Anxiety 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. Asthma, moderate persistent. BCC (basal cell carcinoma). Bilateral carpal tunnel syndrome. Bilateral cataracts. Body mass index (BMI) of 40.0-44.9 in adult. Cerumen impaction (02/14/14). Cervicalgia. Change in voice (01/10/14). Chronic pain. Cigarette nicotine dependence. CKD (chronic kidney disease). Colonic polyp. Coordination problem. COPD (chronic obstructive pulmonary disease). Degenerative disc disease, lumbar. Diverticulosis. DJD (degenerative joint disease). Dysphonia (02/14/14). Dyspnea. Edema. Fibromyalgia. First degree AV block. Foot pain. Fusion of lumbosacral spine. Gastroesophageal reflux disease (01/10/14). H/O urinary frequency. Hamstring tendonitis. History of prediabetes. HTN (hypertension). Hx of colonic polyps. Hypothyroidism. Idiopathic sleep related nonobstructive alveolar hypoventilation. Iritis. Knee pain, bilateral. Left hip pain. Leg wound, left. Lumbar stenosis. Major depression. Mixed stress and urge urinary incontinence. Mobitz II. Myalgia. Obesity. Onychodystrophy. SUGEY on CPAP. Ovarian mass. Periodic limb movement disorder (10/23/18). Peripheral neuropathy. Recurrent UTI (01/30/17). Restless leg syndrome. Rotator cuff syndrome. Sacroiliac joint pain. Sensory hearing loss, bilateral (02/14/14). Spinal stenosis. Tobacco use. Trigger finger. Urgency incontinence (01/30/17). Visual acuity reduced. Surgical History . History of carpal tunnel release of both wrists. History of hip replacement. Hx of colonoscopy. Hx of total knee replacement. Right distal ulnar fracture. s/p ORIF. DOS: 07/27/20 PREVIOUS FUNCTIONAL STATUS/SOCIAL/FAMILY SUPPORTS:: Resides in [place], [place], independent at baseline in the community. Large, supportive family. CURRENT FUNCTIONAL STATUS:: Jenise remains in the ICU at this time, she has been up ambulating with FWW and made multiple loops in the ICU this morning. She continues to struggle with some nausea; sleeping with CPAP on when CM attempted to meet with her. ADVANCE DIRECTIVES:: On file: Yoli White as agent, Divya Vásquez as alternate. Has patient been provided with info about the portal/API?: Yes Did the patient sign up for the portal?: No CODE STATUS:: Full Code INSURANCE COVERAGE / FINANCIAL ISSUES:: Medicare. BC/BS CURRENT HOME/COMMUNITY SERVICES/EQUIPMENT:: None, currently. PRIMARY CARE PHYSICIAN:: Wilma Nance POTENTIAL DISCHARGE NEEDS:: Follow up appointment with Surgical services and PCP. PATIENT/FAMILY EDUCATION NEEDS:: Review discharge instructions, discuss Ask Me Three. ANTICIPATED BARRIERS TO DISCHARGE:: None identified at this time. TRANSPORTATION:: Via private vehicle with daughter. PLAN:: Jenise will return home when ready per MD. She will follow up with her PCP and plan of care as prescribed. She will transport via private vehicle with family.
[2022-05-09 10:49] LABS: C-Reactive Protein 5.88 mg/dL (0.0-0.3); Magnesium 1.8 mg/dL (1.8-2.4); NT-proBNP 1423 pg/mL (<300)
--- NOTE | 2022-05-09 11:46 | CHAPLAIN ---
Shiloh was up in the chair when I visited this morning. She was pleasant and easily engaged in a conversation. She's a member of the [facility], although she moved to [place] recently and has been able to attend because of the distance. She hopes to feel up to making the trip from [place] eventually. Rev. Milton Jones, the used car renovator at the [facility] was in to visit Shiloh yesterday, and she appreciated that.
[2022-05-09] MEDS: FentaNYL/ROPIvacaine 2 mcg/ml and 0.1% 200 ML CADD Cassette EP (12:18)
[2022-05-09] MEDS: ACETAMINOPHEN 1,000 MG/100 ML BTL 400 MG IVPB ×3 (13:12→21:40)
[2022-05-09] MEDS: Albuterol 2.5 MG/3 ML INH SOLN VIAL UPD (13:38)
[2022-05-09] MEDS: Pantoprazole 40 MG VIAL (13:42)
--- NOTE | 2022-05-09 15:18 | W.ANESEPD ---
Epidural/Spinal Daily Note Date Performed: 05/09/22 Assessment Time: 12:00 Patient Location: Intensive Care Unit Catheter Type in Place: Epidural Catheter Dressing Assessment: Dressing intact with good adherence Catheter Assessment: Catheter Labeled Previous Catheter Depth Noted (cm): 15 Current Catheter Depth (cm): 15 Current Medication Infusion: Ropivacaine 0.1% with Fentanyl 2mcg/ml Current Maintenance Infusion Rate (ml/hour): 6 Current PCEA Bolus Dose (ml): 5 Current Pain Score (0-10): 3 Medication Infusion Stopped, Catheter Removal Planned: No New Bolus Given or Change in Infusion Made: No Completed By: Sada Alcantar Supervised By: Vi Zelaya
--- NOTE | 2022-05-09 15:39 | PT.INTREAT ---
Date of service: 05/09/22 Time of Service: 15:13 PT Notes Visit Reasons: s/p Hemicolectomy for Colon Cancer Inpatient Physical Therapy Treatment Note [facility] Date: 05/09/2022 PRECAUTIONS: Activity as tolerated SUBJECTIVE: Jenise is pleasant and agreeable to participating in PT.? She reports that she is quite tired today, but is feeling okay today. OBJECTIVE:? PAIN: Patient c/o some abdominal pain with sit-supine transfer ? BED MOBILITY/TRANSFERS? Supine-sit: SBA Sit-supine: SBA Sit-stand: SBA? Stand-sit: SBA ? GAIT? Assistive Device: FWW? Weight bearing: Full Assist: SBA ? Distance:? 100' ? Deviation: Antalgic gait, B LE weakness, increased LE fatigue ? ASSESSMENT:? Patient tolerated session with minimal complaint of abdominal pain with sit-supine transfer. She demonstrates and c/o B LE weakness with gait training, which nursing attributes to pain medication and means of administration (via epidural). PLAN: Continue with gait and transfer training, as well as global strengthening and conditioning for improved mobility and activity tolerance. TREATMENT CODE/TIME: 23 minutes; [id number] x2 (15:13)
--- NOTE | 2022-05-09 16:18 | PHACLINREV_ITS ---
Pharmacy Admission Review - Admission Clinical Review (Last Reviewed 05/08/22 @ 08:43 by Serenity Flores) Severe obesity (Acute) Obstructive sleep apnea syndrome (Acute) formoterol [From Dulera] Allergy (Intermediate, Verified 05/08/22 08:28) unknown mometasone furoate [From Dulera] Adverse Reaction (Intermediate, Verified 04/27 09/18 09:11) thrush mirabegron [From Myrbetriq] Adverse Reaction (Verified 05/07/22 10:52) Increased blood pressure Resuscitation Status Full Code Height 5 ft 3 in Weight 120 kg - Renal Dosing Renal Dosing: BUN 17 mg/dL (7-18) 05/09/22 05:08 Creatinine 1.0 mg/dL (0.55-1.02) 05/09/22 05:08 Medications needing adjustments: Reviewed List of meds needing interventions: eCrCl 58 ml/min -- all orders appropriately dosed - Anticoagulation Anticoagulation: Hgb 12.8 g/dL (11.2-15.7) 05/09/22 05:08 Hct 37.8 % (36.0-46.0) 05/09/22 05:08 Plt Count 158 10^3/uL (130-400) 05/09/22 05:08 Creatinine 1.0 mg/dL (0.55-1.02) 05/09/22 05:08 DVT Prophylaxis: Reviewed Medications: Enoxaparin - Opiate Usage Evaluate Pain Scale/Pains Meds: Reviewed (epidural for pain control, PO meds on hold) - Relevant Labs Sodium 137 mmol/L (136-145) 05/09/22 05:08 Potassium 4.3 mmol/L (3.5-5.1) 05/09/22 05:08 Chloride 105 mmol/L (98-107) 05/09/22 05:08 Magnesium 1.8 mg/dL (1.8-2.4) 05/09/22 05:08 C-Reactive Protein 5.88 mg/dL (0.0-0.3) H 05/09/22 05:08 Electrolytes, C-Reactive P, ESR: Reviewed - DM Control DM Control: Glucose 114 mg/dL (74-106) H 05/09/22 05:08 DM Control: Reviewed - Cardiac Review Cardiac Review: NT-Pro-B Natriuret Pep 1423 pg/mL (<300) H 05/09/22 05:08 BP, HR, EF%: Reviewed - Qtc Review QTc: Reviewed If Elevated, List meds needing intervention: 444 on admission - IV to PO Switch IV Medications: Reviewed - Home Meds Home Med List reviewed: Intervened Relevent Home Meds Not ordered & why?: made a few edits... will recommend provider consult telepharmacy to do a med rec - Current meds Current Medication Order Review: Reviewed
[2022-05-09] MEDS: Simethicone 80 MG CHEW PO (16:34)
--- NOTE | 2022-05-09 16:43 | W.MEDCONSULT ---
Date of service: 05/09/22 Time of Service: 16:43 Assessment and Plan Assessment and plan (1) Second degree type II atrioventricular block: Status: Acute Assessment and plan: I suspect this is vagal in etiology. No obvious ACS. Hold beta blockers. Monitor in the ICU with pacing pads on. Discussed with [facility] cardiology. I have written for dopamine at 1-5 mcg/kg/min if HR drops to 30s-40s and stays there. Volume rescucitation. Will check tick/lyme panel. Discussed with Dr Martini. Total Critical Care Time 45 minutes. History of Present Illness History of Present Illness Chief Complaint: dizziness; bradycardia and hypotension Narrative: Ms Anderson is a 76 year old female who is a patient of the general surgical service in the ICU who is s/p hemicolectomy by Dr Carrillo on 05/08/22 for colon cancer whom I was asked to evaluate for development of bradycardia and hypotension after her walk. Her HR went down to the 30s with variable 1st degree block (up to the 50s now). Her BP went down to 64/58. She is receiving a bolus of 1L of LR, to which her BP is responding. She has an epidural in place (fentanyl/ropivacaine). The patient feels a little dizzy and has had nausea, feeling of reflux and gas, though she currently denies these sensations. She is not in pain. She was being tried on a clear liquid diet today. Shortly after my initial evaluation of the patient, she went into 2nd degree type 2 heart block. Per anesthesia, she also did this during her case. Her case was discussed with [facility] cardiology: She had a negative MPI stress test in 03/18. Her electrolytes are wnl. The most likely etiology for this is vagal - but she is also on beta blockers. Recommended: volume rescucitation, checking for Lyme, holding beta blockers, pacing pads on a patient, and if HR drops to 30s-40s and stays there, dopamine at low rates vs epinephrine. (Dobutamine would lower blood pressure and would be less preferred.) I have communicated this to ICU nursing and to Dr Martini. Review of Systems All systems reviewed & are unremarkable except as noted in HPI and below PFSH All Active Problems (Updated 05/09/22 @ 19:59 by Dinorah Lee MD) Second degree type II atrioventricular block (Acute) Severe obesity (Acute) Obstructive sleep apnea syndrome (Acute) Colon cancer (Chronic) Medical History (Updated 05/09/22 @ 19:59 by Dinorah Lee MD) Abnormal auditory perception (01/10/14) Acquired pes planus Acute bronchospasm Allergic rhinitis Anxiety 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 Asthma, moderate persistent BCC (basal cell carcinoma) Bilateral carpal tunnel syndrome Bilateral cataracts Body mass index (BMI) of 40.0-44.9 in adult Cerumen impaction (02/14/14) Cervicalgia Change in voice (01/10/14) Chronic pain Cigarette nicotine dependence CKD (chronic kidney disease) Colonic polyp Coordination problem COPD (chronic obstructive pulmonary disease) Degenerative disc disease, lumbar Diverticulosis DJD (degenerative joint disease) Dysphonia (02/14/14) Dyspnea Edema Fibromyalgia First degree AV block Foot pain Fusion of lumbosacral spine Gastroesophageal reflux disease (01/10/14) H/O urinary frequency Hamstring tendonitis History of prediabetes HTN (hypertension) Hx of colonic polyps Hypothyroidism Idiopathic sleep related nonobstructive alveolar hypoventilation Iritis Knee pain, bilateral Left hip pain Leg wound, left Lumbar stenosis Major depression Mixed stress and urge urinary incontinence Mobitz II Known to cardiology since 2011, medical management. Myalgia Obesity Onychodystrophy SUGEY on CPAP uses 2L O2 Ovarian mass Periodic limb movement disorder (10/23/18) Peripheral neuropathy Recurrent UTI (01/30/17) Restless leg syndrome Rotator cuff syndrome Sacroiliac joint pain Sensory hearing loss, bilateral (02/14/14) Spinal stenosis Tobacco use Trigger finger Urgency incontinence (01/30/17) Visual acuity reduced Surgical History (Updated 05/08/22 @ 08:41 by Serenity Flores) H/O spinal fusion L4-S1 History of carpal tunnel release of both wrists History of hip replacement History of knee replacement Hx of colonoscopy Hx of shoulder surgery Left Hx of total knee replacement Right distal ulnar fracture s/p ORIF DOS: 07/27/20 Family History Father Diabetes Son Diabetes Social History Smoking/Tobacco Use Status: Current every day Tobacco Type: cigarettes Smoking packs per day: 1 Smoking cigarettes per day: 20.0 Smoking risk assessment performed?: Yes Alcohol Intake: current Alcohol Intake frequency: 3 or more drinks per day Alcohol type: beer Drug use: Never Substance use type: does not use Details: alcohol: t-2, 3-4 beers Housing: house Number of Children: 9 Pets and animals: Yes Pets and animals: dog(s) and horse(s) Current gender identity: female What is your relationship status?: Panel score (0-1 are the most socially isolated patients): 0 What type of physical activity do you participate in: walking Seatbelt use: always Do you feel safe at home: Yes Do you feel safe in your relationship?: Yes Additional Social history: unable assess privately Exam Narrative Exam Narrative: General: Pleasant obese female who is quite talkative, A&Ox3, does not appear uncomfortable Neurological: A&Ox3, no focal deficits Psychiatric: Appropriate speech pattern/content Skin: Visible skin intact HEENT: Atraumatic, normocephalic, EOMI, MMM Cardiovascular: Irregularly irregular rhythm, no m/r/g Lungs: Wheezing B Gastrointestinal: soft, diffusely tender Genitourinary: has a calvin Extremities: no edema Results Last Vital Signs Temp 37.1 C 05/09/22 15:52 Pulse 63 05/09/22 16:19 Resp 16 05/09/22 16:01 BP 93/43 L 05/09/22 16:19 Pulse Ox 95 05/09/22 15:52 Labs Result diagrams: 05/09/22 05:08 05/09/22 17:55 Labs: Laboratory Results - last 24 hr 05/09/22 05/09/22 05/09/22 05:08 05:08 05:08 WBC 10.55 RBC 3.94 Hgb 12.8 Hct 37.8 MCV 96 H MCH 32.5 MCHC 33.9 RDW 12.6 Plt Count 158 MPV 10.6 Immature Gran % 0.6 Neutrophils % 83.6 Lymphocytes % 9.1 Monocytes % 6.6 Eosinophils % 0.0 Basophils % 0.1 Nucleated RBC % 0.0 Absolute Neutrophils 8.82 H Absolute Lymphocytes 0.96 L Absolute Monocytes 0.70 Absolute Eosinophils 0.00 Absolute Basophils 0.01 Sodium 137 Potassium 4.3 Chloride 105 Carbon Dioxide 22.9 Anion Gap 9.1 BUN 17 Creatinine 1.0 Est GFR (CKD-EPI 2020) 57.66 Glucose 114 H Calcium 8.8 Magnesium C-Reactive Protein NT-Pro-B Natriuret Pep Add-On Test Request DONE 05/09/22 05:08 WBC RBC Hgb Hct MCV MCH MCHC RDW Plt Count MPV Immature Gran % Neutrophils % Lymphocytes % Monocytes % Eosinophils % Basophils % Nucleated RBC % Absolute Neutrophils Absolute Lymphocytes Absolute Monocytes Absolute Eosinophils Absolute Basophils Sodium Potassium Chloride Carbon Dioxide Anion Gap BUN Creatinine Est GFR (CKD-EPI 2020) Glucose Calcium Magnesium 1.8 C-Reactive Protein 5.88 H NT-Pro-B Natriuret Pep 1423 H Add-On Test Request Imaging Additional studies: EKG: HR 54, 2nd degree type 2 heart block
--- NOTE | 2022-05-09 17:00 | RT.EKG_ITS ---
APPROVED REPORT Exam: Resting ECG Reason for Exam: Bradycardia Patient Location: I HR:55 bpm ECG Measurements Heart Rate 55 AXIS ID 484 P 217 QRSd 104 QRS 59 QT 438 T 89 QTc 419 Conclusion Second degree AV block, Mobitz I..multiple P waves Nonspecific T abnrm, anterolateral leads...T <-0.10mV, I aVL V2-V6
[2022-05-09] MEDS: Normal Saline Flush 10 ML SYR IV (17:08)
[2022-05-09] MEDS: Lactated Ringers 500 ML 250 ML IV (17:35)
--- NOTE | 2022-05-09 17:55 | W.PM.PROGNOT ---
Date of Service Date of service: 05/09/22 Time of Service: 17:55 Assessment and Plan Assessment and plan (1) Bradycardia following surgery: Status: Acute Assessment and plan: EKG was done which does show second-degree heart block Mobitz type II. Troponin was negative. Electrolytes were done as well. After reviewing her chart it does appear that she has been in this heart rhythm off and on before. - I did discuss the case with anesthesia and they said she had fluctuating in and out of second-degree heart block. -I did consult the hospitalist for medical management. Dr. Lee did fax EKGs and reviewed the case with cardiology. Please see her note. They did recommend dopamine for chronotropic enhancement. (2) Second degree type II atrioventricular block: Status: Acute (3) Severe obesity: Status: Acute (4) Obstructive sleep apnea syndrome: Status: Acute (5) Colon cancer: Status: Chronic (6) Allergic rhinitis: (7) Cigarette nicotine dependence: Assessment and plan: - Patient has been using Acapella for secretion control. She still has pretty significant cough and sputum production. We will add in Mucomyst. I did order a chest x-ray today. We will have pulmonary consult for further recommendation for inhalers in am Patient was counseled on smoking cessation Qualifiers: Substance use status: uncomplicated Qualified Code(s): F17.210 - Nicotine dependence, cigarettes, uncomplicated (8) CKD (chronic kidney disease): (9) Degenerative disc disease, lumbar: (10) Diverticulosis: (11) Hypothyroidism: Status: Chronic (12) Mixed stress and urge urinary incontinence: Status: Acute (13) Mobitz II: Status: Acute Subjective Subjective Interval history since last seen: pt denies cp/sob. RN's note that she in HR in 40's. I did d/w anesthesia. They do not feel it is related to epidural. They did note that during the case she was in and out of 2nd degree hurt block. Repeat EKG does show she is in second-degree heart block. Labs reviewed. Patient did note less distention after she had been up walking. And she did have a bowel movement today. She has been belching less. She still has a very thick productive cough. She has daily been doing an Acapella today. She does not like DuoNebs. She got a yeast infection from them in the past. Please see Dr. Lee's notes. consulted hospitalists for cardiac issues. Objective Last Vital Signs Temp 37.1 C 05/09/22 15:52 Pulse 63 05/09/22 16:19 Resp 16 05/09/22 16:01 BP 93/43 L 05/09/22 16:19 Pulse Ox 95 05/09/22 15:52 Laboratory Results - last 24 hr 05/09/22 05/09/22 05/09/22 05:08 05:08 05:08 WBC 10.55 RBC 3.94 Hgb 12.8 Hct 37.8 MCV 96 H MCH 32.5 MCHC 33.9 RDW 12.6 Plt Count 158 MPV 10.6 Immature Gran % 0.6 Neutrophils % 83.6 Lymphocytes % 9.1 Monocytes % 6.6 Eosinophils % 0.0 Basophils % 0.1 Nucleated RBC % 0.0 Absolute Neutrophils 8.82 H Absolute Lymphocytes 0.96 L Absolute Monocytes 0.70 Absolute Eosinophils 0.00 Absolute Basophils 0.01 Sodium 137 Potassium 4.3 Chloride 105 Carbon Dioxide 22.9 Anion Gap 9.1 BUN 17 Creatinine 1.0 Est GFR (CKD-EPI 2020) 57.66 Glucose 114 H Calcium 8.8 Magnesium C-Reactive Protein NT-Pro-B Natriuret Pep Add-On Test Request DONE 05/09/22 05:08 WBC RBC Hgb Hct MCV MCH MCHC RDW Plt Count MPV Immature Gran % Neutrophils % Lymphocytes % Monocytes % Eosinophils % Basophils % Nucleated RBC % Absolute Neutrophils Absolute Lymphocytes Absolute Monocytes Absolute Eosinophils Absolute Basophils Sodium Potassium Chloride Carbon Dioxide Anion Gap BUN Creatinine Est GFR (CKD-EPI 2020) Glucose Calcium Magnesium 1.8 C-Reactive Protein 5.88 H NT-Pro-B Natriuret Pep 1423 H Add-On Test Request PAWSS Have you Been Recently Intoxicated or Drunk Within the Last 30 days?: No Have you Ever Experienced Previous Episodes of Alcohol Withdrawal?: No Have you ever Experienced Withdrawal Seizures?: No Have you ever Experienced Delirium Tremens(DT)s?: No Have you ever undergone Alcohol Rehabilitation Treatment (i.e, inpt ot outpatient treatment programs)?: No Have you ever Experienced Blackouts?: No Have you ever Combined Alcohol with other Downers within the last 90 days?: No Have you ever Combined Alcohol with any other Substance of Abuse during the last 90 days?: No Evidence of Increased Autonomic Activity (i.e. HR>120, tremor, sweating, agitation, nausea)?: No Result: 0
[2022-05-09 18:27] LABS: Anion Gap 5.7 mmol/L (3-11); BUN 21 mg/dL (7-18); CO2 25.3 mmol/L (21.0-32.0); CREATININE 1.4 mg/dL (0.55-1.02); Calcium 8.9 mg/dL (8.5-10.1); Chloride 102 mmol/L (98-107); Estimated GFR 38.51 (mL/min/1.73m2); Glucose 90 mg/dL (74-106); Magnesium 1.8 mg/dL (1.8-2.4); NT-proBNP 1176 pg/mL (<300); Potassium 4.1 mmol/L (3.5-5.1); Sodium 133 mmol/L (136-145); TSH (W/Ref FT4) 0.24 uIU/mL (0.36-3.74); Troponin I < 50 ng/L (<or=60)
[2022-05-09 18:33] LABS: Procalcitonin 0.1 ng/mL
[2022-05-09 18:44] LABS: FREE T4 1.32 ng/dL (0.76-1.46)
[2022-05-09] MEDS: Lactated Ringers 500 ML IV (20:03)
[2022-05-09] MEDS: Lactated Ringers 1,000 ML 100 ML IV (21:42)
[2022-05-10] VITALS (49 sets, daily range): BP systolic 83–180; BP diastolic 46–151; PULSE 58–107; RESP 15–31; TEMP 36.2–37.3; O2SAT 89–97
[2022-05-10] MEDS: FentaNYL/ROPIvacaine 2 mcg/ml and 0.1% 200 ML CADD Cassette EP ×2 (04:41→20:33)
[2022-05-10] MEDS: ACETAMINOPHEN 1,000 MG/100 ML BTL 400 MG IVPB ×4 (06:06→22:14)
[2022-05-10] MEDS: Levothyroxine 175 MCG TAB PO (06:07)
--- NOTE | 2022-05-10 07:34 | W.PM.PROGNOT ---
Date of Service Date of service: 05/10/22 Time of Service: 07:34 Assessment and Plan Assessment and plan (1) Bradycardia following surgery: Status: Acute Assessment and plan: EKG was done which does show second-degree heart block Mobitz type II. Troponin was negative. Electrolytes were done as well. After reviewing her chart it does appear that she has been in this heart rhythm off and on before. - I did discuss the case with anesthesia and they said she had fluctuating in and out of second-degree heart block. -I did consult the hospitalist for medical management. Dr. Lee did fax EKGs and reviewed the case with cardiology. Please see her note. They did recommend dopamine for chronotropic enhancement. HR is back to normal BP is normal (2) Second degree type II atrioventricular block: Status: Acute (3) Severe obesity: Status: Acute (4) Obstructive sleep apnea syndrome: Status: Acute Assessment and plan: uses sleep apnea (5) Colon cancer: Status: Chronic Assessment and plan: POD #2 s/p Hemicolectomy Had a small BM Nausea seems better since her cough is better controlled (6) Allergic rhinitis: (7) Cigarette nicotine dependence: Assessment and plan: - Patient has been using Acapella for secretion control. She still has pretty significant cough and sputum production. Sputum is clear Qualifiers: Substance use status: uncomplicated Qualified Code(s): F17.210 - Nicotine dependence, cigarettes, uncomplicated (8) CKD (chronic kidney disease): (9) Degenerative disc disease, lumbar: Subjective Subjective Interval history since last seen: Shiloh is feeling better this morning. She had a good night sleep. Her BP is back to normal and her Pulse is in the 6o's. She had a very small liquid stool yesterday evening She was nauseated yesterday, most likely due to her coughing. Her cough is productive of clear sputum. She has been up with PT Exam Const General: comfortable and no acute distress Resp Effort & Inspection: normal respiratory effort Auscultation: diminished lung sounds bilaterally in the lower lung guadalupe Cardio Rate: regular rate Rhythm: regular rhythm GI Inspection: incision (covered with MARYURI. minimal drainage) Palpation: soft and nontender Other: Smith in place with good urine output Objective Last Vital Signs Temp 98.1 F 05/10/22 04:00 Pulse 64 05/10/22 07:01 Resp 21 05/10/22 07:01 BP 126/69 05/10/22 07:01 Pulse Ox 93 05/10/22 07:01 Laboratory Results - last 24 hr 05/09/22 05/09/22 05/09/22 05:08 05:08 17:55 Sodium Potassium Chloride Carbon Dioxide Anion Gap BUN Creatinine Est GFR (CKD-EPI 2020) Glucose Calcium Magnesium 1.8 Troponin I Cancelled C-Reactive Protein 5.88 H NT-Pro-B Natriuret Pep 1423 H Procalcitonin TSH Free T4 Add-On Test Request DONE 05/09/22 05/09/22 05/09/22 17:55 17:55 17:55 Sodium 133 L Potassium 4.1 Chloride 102 Carbon Dioxide 25.3 Anion Gap 5.7 BUN 21 H Creatinine 1.4 H Est GFR (CKD-EPI 2020) 38.51 Glucose 90 Calcium 8.9 Magnesium 1.8 Troponin I < 50 C-Reactive Protein NT-Pro-B Natriuret Pep 1176 H Cancelled Procalcitonin 0.1 TSH 0.24 L Free T4 1.32 Add-On Test Request PAWSS Have you Been Recently Intoxicated or Drunk Within the Last 30 days?: No Have you Ever Experienced Previous Episodes of Alcohol Withdrawal?: No Have you ever Experienced Withdrawal Seizures?: No Have you ever Experienced Delirium Tremens(DT)s?: No Have you ever undergone Alcohol Rehabilitation Treatment (i.e, inpt ot outpatient treatment programs)?: No Have you ever Experienced Blackouts?: No Have you ever Combined Alcohol with other Downers within the last 90 days?: No Have you ever Combined Alcohol with any other Substance of Abuse during the last 90 days?: No Evidence of Increased Autonomic Activity (i.e. HR>120, tremor, sweating, agitation, nausea)?: No Result: 0
[2022-05-10 07:57] LABS: Abs Immature Grans 0.04 10^3/uL (0.0-0.06); Absolute Basophil Count 0.04 10^3/uL (0.0-0.2); Absolute Eosinophil Count 0.05 10^3/uL (0.0-0.7); Absolute Lymphocyte Count 1.96 10^3/uL (1.2-3.4); Absolute Monocyte Count 0.41 10^3/uL (0.1-0.8); Absolute Neutrophil Count 3.86 10^3/uL (1.2-6.7); Basophils % 0.6; Eosinophils % 0.8; HCT 36.6 % (36.0-46.0); HGB 12.5 g/dL (11.2-15.7); Immature Grans % 0.6; Lymphocytes % 30.8; MCHC 34.2 % (32.0-36.0); MCV 97 fL (80-95); MPV 10.8 fL (8.0-11.0); Monocytes % 6.4; Neutrophils % 60.8; Platelet Count 129 10^3/uL (130-400); RBC 3.79 10^6/uL (3.93-5.22); RDW 13.1 % (11.7-14.6); RDW-SD 46.8 fL; WBC 6.36 10^3/uL (4.4-10.8)
[2022-05-10 08:12] LABS: Anion Gap 7.9 mmol/L (3-11); BUN 17 mg/dL (7-18); CO2 25.1 mmol/L (21.0-32.0); Calcium 9.1 mg/dL (8.5-10.1); Chloride 108 mmol/L (98-107); Estimated GFR 57.66 (mL/min/1.73m2); Glucose 83 mg/dL (74-106); Magnesium 1.9 mg/dL (1.8-2.4); Potassium 3.9 mmol/L (3.5-5.1); Sodium 141 mmol/L (136-145)
--- NOTE | 2022-05-10 09:31 | W.PM.PROGNOT ---
Date of Service Date of service: 05/10/22 Time of Service: 09:31 Assessment and Plan Assessment and plan (1) Second degree type II atrioventricular block: Status: Resolved Assessment and plan: I suspect this was vagal in etiology. No obvious ACS. In 1st degree AV block this morning. Resolved with bowel movement. Continue to Hold beta blockers. Would continue to monitor in the ICU. Has not required a chronotrope so far (but should she need it, dopamine at 1-5 mcg/kg/min if HR drops to 30s-40s and stays there). Euvolemic at this time - d/c IVF. Await tick/lyme panel. Discussed with Dr Carrillo. Subjective Subjective Interval history since last seen: Feels better. Not in pain. Had BM yesterday. HR did improve to 60s - 80s with resolution of type 2 2nd degree heart block last night. Did not require addition of dopamine. Getting tried on ice chips and water this morning. Reports post-nasal drip. Used CPAP last night. BP 108/71 this am. Exam Narrative Exam Narrative: General: Pleasant obese female who is quite talkative, A&Ox3, sitting up in a chair HEENT: EOMI, MMM Cardiovascular: RRR, no m/r/g Lungs: Diminished breath sounds B Gastrointestinal: soft, midline incision with MARYURI dressing - saturated in the center Genitourinary: has a calvin Extremities: no edema, no lesions on feet Objective Last Vital Signs Temp 36.8 C 05/10/22 08:04 Pulse 60 05/10/22 08:04 Resp 23 05/10/22 08:01 BP 132/74 05/10/22 08:01 Pulse Ox 93 05/10/22 08:01 Laboratory Results - last 24 hr 05/09/22 05/09/22 05/09/22 05:08 05:08 17:55 WBC RBC Hgb Hct MCV MCH MCHC RDW Plt Count MPV Immature Gran % Neutrophils % Lymphocytes % Monocytes % Eosinophils % Basophils % Nucleated RBC % Absolute Neutrophils Absolute Lymphocytes Absolute Monocytes Absolute Eosinophils Absolute Basophils Sodium Potassium Chloride Carbon Dioxide Anion Gap BUN Creatinine Est GFR (CKD-EPI 2020) Glucose Calcium Magnesium 1.8 Troponin I Cancelled C-Reactive Protein 5.88 H NT-Pro-B Natriuret Pep 1423 H Procalcitonin TSH Free T4 Add-On Test Request DONE 05/09/22 05/09/22 05/09/22 17:55 17:55 17:55 WBC RBC Hgb Hct MCV MCH MCHC RDW Plt Count MPV Immature Gran % Neutrophils % Lymphocytes % Monocytes % Eosinophils % Basophils % Nucleated RBC % Absolute Neutrophils Absolute Lymphocytes Absolute Monocytes Absolute Eosinophils Absolute Basophils Sodium 133 L Potassium 4.1 Chloride 102 Carbon Dioxide 25.3 Anion Gap 5.7 BUN 21 H Creatinine 1.4 H Est GFR (CKD-EPI 2020) 38.51 Glucose 90 Calcium 8.9 Magnesium 1.8 Troponin I < 50 C-Reactive Protein NT-Pro-B Natriuret Pep 1176 H Cancelled Procalcitonin 0.1 TSH 0.24 L Free T4 1.32 Add-On Test Request 05/10/22 05/10/22 05:40 05:40 WBC 6.36 RBC 3.79 L Hgb 12.5 Hct 36.6 MCV 97 H MCH 33.0 MCHC 34.2 RDW 13.1 Plt Count 129 L MPV 10.8 Immature Gran % 0.6 Neutrophils % 60.8 Lymphocytes % 30.8 Monocytes % 6.4 Eosinophils % 0.8 Basophils % 0.6 Nucleated RBC % 0.0 Absolute Neutrophils 3.86 Absolute Lymphocytes 1.96 Absolute Monocytes 0.41 Absolute Eosinophils 0.05 Absolute Basophils 0.04 Sodium 141 Potassium 3.9 Chloride 108 H Carbon Dioxide 25.1 Anion Gap 7.9 BUN 17 Creatinine 1.0 Est GFR (CKD-EPI 2020) 57.66 Glucose 83 Calcium 9.1 Magnesium 1.9 Troponin I C-Reactive Protein NT-Pro-B Natriuret Pep Procalcitonin TSH Free T4 Add-On Test Request PAWSS Have you Been Recently Intoxicated or Drunk Within the Last 30 days?: No Have you Ever Experienced Previous Episodes of Alcohol Withdrawal?: No Have you ever Experienced Withdrawal Seizures?: No Have you ever Experienced Delirium Tremens(DT)s?: No Have you ever undergone Alcohol Rehabilitation Treatment (i.e, inpt ot outpatient treatment programs)?: No Have you ever Experienced Blackouts?: No Have you ever Combined Alcohol with other Downers within the last 90 days?: No Have you ever Combined Alcohol with any other Substance of Abuse during the last 90 days?: No Evidence of Increased Autonomic Activity (i.e. HR>120, tremor, sweating, agitation, nausea)?: No Result: 0
[2022-05-10] MEDS: Normal Saline Flush 10 ML SYR IV (09:37)
[2022-05-10] MEDS: guaiFENesin 600 MG TABCR PO ×2 (09:38→20:33)
[2022-05-10] MEDS: Pantoprazole 40 MG VIAL IVP (09:46)
--- NOTE | 2022-05-10 10:30 | DI.RAD_ITS ---
Exam(s) XR CHEST 2V PA LATERAL EXAM: XR CHEST 2V PA LATERAL CLINICAL HISTORY: s/p colon sx wheezing/hx of asthma TECHNIQUE: 2D digital imaging was performed of the chest. Two images were obtained. PA and lateral views were obtained. COMPARISON: CR XR CHEST 2V PA LATERAL from 01/11/2022 FINDINGS: MEDIASTINUM: Normal. HEART: Normal. PULMONARY VASCULATURE: Normal. LUNGS: The lungs are hyperinflated suggesting underlying COPD. No focal consolidating infiltrates ar e seen. PLEURAL SPACE: No pleural effusion or pneumothorax. BONE:Within normal limits for the patient's age. There again seen findings of a prior left shoulder replacement. Postsurgical changes are also seen in the right humeral head. OTHER FINDINGS:Normal. IMPRESSION: No acute pulmonary findings. DATA REPOSITORY: RADIATION DOSE DELIVERED:
--- NOTE | 2022-05-10 10:44 | PT.INTREAT ---
Date of service: 05/10/22 Time of Service: 10:05 PT Notes Visit Reasons: s/p Hemicolectomy for Colon Cancer Inpatient Physical Therapy Treatment Note [facility] Date: 05/10/2022 PRECAUTIONS: Activity as tolerated SUBJECTIVE: Jenise is pleasant and agreeable to participating in PT.? She reports that she is feeling better today. OBJECTIVE:? PAIN: Patient c/o some abdominal pain post gait training ? BED MOBILITY/TRANSFERS? Sit-stand: SBA? Stand-sit: SBA ? GAIT? Assistive Device: FWW? Weight bearing: Full Assist: SBA ? Distance:?120' in a.m.; 300' in p.m.? Deviation: Slightly antalgic gait in both a.m. and p.m.; standing rest due to B UE fatigue in p.m. THEREX: Patient was instructed in a LE strengthening program, completed in a seated position, to include: ankle pumps, LAQ and hip flexion. She demonstrates equal strength and range, bilaterally. TOILETING: Patient was incontinent of stool requiring assist ? ASSESSMENT:? Patient tolerated session with minimal complaint of abdominal pain post gait training. She was able to tolerate a progression in gait distance with FWW support and SBA. She also tolerates the addition of open-chain LE strengthening exercises, demonstrating equal strength and range, bilaterally. PLAN: Continue with gait and transfer training, as well as global strengthening and conditioning for improved mobility and activity tolerance. TREATMENT CODE/TIME: Session 1: 20 minutes; 27113 (10:05) Session 2: 23 minutes; 59344 x2 (13:04)
--- NOTE | 2022-05-10 11:29 | CMPROGNOTE_ITS ---
- If Service Date Differs Date of service: 05/10/22 Time of Service: 11:29 Care Management Progress Note S/O: Jenise remains in the ICU at this time, she is up ambulating with PT and to the the commode as well as sitting in her chair. She visited with her animal control specialist yesterday and her family has been updated, at her request per RN. She is utilizing IS and fully engaged with staff. Anticipate new home health orders upon discharge; RN/PT. CM continues to follow. A: 76 year old female admitted to [facility] 05/08/22 s/p hemicolectomy for Colon Cancer P: Jenise will return home when ready per MD. She will follow up with her PCP and plan of care as prescribed. Anticipate new home health orders for RN/PT. She will transport via private vehicle with family.
--- NOTE | 2022-05-10 15:08 | W.ANESEPD ---
Epidural/Spinal Daily Note Date Performed: 05/10/22 Assessment Time: 15:12 Patient Location: Intensive Care Unit Catheter Type in Place: Epidural Catheter Dressing Assessment: Dressing intact with good adherence Catheter Assessment: Catheter Labeled and Intact and Functioning Previous Catheter Depth Noted (cm): 15 Current Catheter Depth (cm): 15 Current Medication Infusion: Ropivacaine 0.1% with Fentanyl 2mcg/ml Current Maintenance Infusion Rate (ml/hour): 6 Current PCEA Bolus Dose (ml): 5 Current Pain Score (0-10): 3 Medication Infusion Stopped, Catheter Removal Planned: No Sensory / Motor Block Comments: ambulating well no paresthesias New Bolus Given or Change in Infusion Made: No Daily Management Comments: excellent pain control Completed By: Leroy Page
[2022-05-11] VITALS (32 sets, daily range): BP systolic 79–155; BP diastolic 40–96; PULSE 43–109; RESP 13–32; TEMP 36.2–37.5; O2SAT 93–100
[2022-05-11] MEDS: ACETAMINOPHEN 1,000 MG/100 ML BTL 400 MG IVPB ×4 (05:07→22:27)
[2022-05-11] MEDS: Levothyroxine 175 MCG TAB PO (05:08)
[2022-05-11 05:38] LABS: Abs Immature Grans 0.02 10^3/uL (0.0-0.06); Absolute Basophil Count 0.04 10^3/uL (0.0-0.2); Absolute Eosinophil Count 0.21 10^3/uL (0.0-0.7); Absolute Lymphocyte Count 2.31 10^3/uL (1.2-3.4); Absolute Monocyte Count 0.54 10^3/uL (0.1-0.8); Absolute Neutrophil Count 4.68 10^3/uL (1.2-6.7); Basophils % 0.5; Eosinophils % 2.7; HCT 35.4 % (36.0-46.0); HGB 11.6 g/dL (11.2-15.7); Immature Grans % 0.3; Lymphocytes % 29.6; MCHC 32.8 % (32.0-36.0); MCV 98 fL (80-95); MPV 10.5 fL (8.0-11.0); Monocytes % 6.9; Platelet Count 133 10^3/uL (130-400); RBC 3.62 10^6/uL (3.93-5.22); RDW 12.9 % (11.7-14.6); RDW-SD 46.2 fL
[2022-05-11 05:53] LABS: Anion Gap 10.3 mmol/L (3-11); BUN 14 mg/dL (7-18); CO2 23.7 mmol/L (21.0-32.0); CREATININE 0.8 mg/dL (0.55-1.02); Chloride 105 mmol/L (98-107); Estimated GFR 75.37 (mL/min/1.73m2); Glucose 90 mg/dL (74-106); Magnesium 1.5 mg/dL (1.8-2.4); Potassium 3.7 mmol/L (3.5-5.1); Sodium 139 mmol/L (136-145)
[2022-05-11 06:24] LABS: Vitamin B12 530 pg/mL (193-986)
[2022-05-11 06:25] LABS: Folate > 20.0 ng/mL (8.6-20.0)
--- NOTE | 2022-05-11 10:27 | PGE_ITS ---
Date of Service Date of service: 05/11/22 Time of Service: 10:27 Assessment and Plan Assessment and plan (1) Second degree type II atrioventricular block: Status: Resolved Assessment and plan: I suspect this was vagal in etiology. No obvious ACS. 1st degree AV block has now also resolved. Magnesium has been repleted. I suspect that the AV blocks happened due to a combination of beta blockade + increased vagal tone post intraabdominal surgery. Ok per medicine if downgraded to medsurg. Has not required a chronotrope. Await tick/lyme panel. Discussed with Dr Carrillo. Hospitalists are signing off - please, reconsult if needed. Subjective Subjective Interval history since last seen: Ms Anderson states that she is tolerating a clear liquid diet. She really enjoyed ensure clear and requests some more. She has had BMs. She denies nausea. Denies dizziness, CP, SOB. Even her 1st degree AV block has now resolved. She states that in the past her pain was well controlled on a fentanyl patch and that the other regimens of long acting opioids + prn breakthrough meds didn't tr eat her pain adequately. She is wondering if, when switching from epidural pain management, a fentanyl patch could be considered. Exam Narrative Exam Narrative: General: Pleasant obese female who is quite talkative, A&Ox3, sitting up in a chair, looks better HEENT: EOMI, MMM Cardiovascular: RRR, no m/r/g Lungs: CTAB Gastrointestinal: soft, nontender, nondistended Extremities: trace edema, no lesions on feet Objective Last Vital Signs Temp 37.3 C 05/11/22 04:00 Pulse 64 05/10/22 18:01 Resp 28 H 05/10/22 20:00 BP 127/80 05/10/22 18:01 Pulse Ox 96 05/10/22 18:01 Laboratory Results - last 24 hr 05/11/22 05/11/22 05/11/22 05:16 05:16 05:16 WBC 7.80 RBC 3.62 L Hgb 11.6 Hct 35.4 L MCV 98 H MCH 32.0 MCHC 32.8 RDW 12.9 Plt Count 133 MPV 10.5 Immature Gran % 0.3 Neutrophils % 60.0 Lymphocytes % 29.6 Monocytes % 6.9 Eosinophils % 2.7 Basophils % 0.5 Nucleated RBC % 0.0 Absolute Neutrophils 4.68 Absolute Lymphocytes 2.31 Absolute Monocytes 0.54 Absolute Eosinophils 0.21 Absolute Basophils 0.04 Sodium 139 Potassium 3.7 Chloride 105 Carbon Dioxide 23.7 Anion Gap 10.3 BUN 14 Creatinine 0.8 Est GFR (CKD-EPI 2020) 75.37 Glucose 90 Calcium 9.0 Magnesium 1.5 L Vitamin B12 530 Folate > 20.0 H PAWSS Have you Been Recently Intoxicated or Drunk Within the Last 30 days?: No Have you Ever Experienced Previous Episodes of Alcohol Withdrawal?: No Have you ever Experienced Withdrawal Seizures?: No Have you ever Experienced Delirium Tremens(DT)s?: No Have you ever undergone Alcohol Rehabilitation Treatment (i.e, inpt ot outpatient treatment programs)?: No Have you ever Experienced Blackouts?: No Have you ever Combined Alcohol with other Downers within the last 90 days?: No Have you ever Combined Alcohol with any other Substance of Abuse during the last 90 days?: No Evidence of Increased Autonomic Activity (i.e. HR>120, tremor, sweating, agitation, nausea)?: No Result: 0
--- NOTE | 2022-05-11 11:12 | W.PM.PROGNOT ---
Date of Service Date of service: 05/11/22 Time of Service: 11:12 Assessment and Plan Assessment and plan (1) Bradycardia following surgery: Status: Acute Assessment and plan: Second-degree heart block Mobitz type II has resolved HR is back to normal BP is normal Will hold Beta Leonides (2) Second degree type II atrioventricular block: Status: Resolved (3) Severe obesity: Status: Acute (4) Obstructive sleep apnea syndrome: Status: Acute Assessment and plan: uses sleep apnea (5) Colon cancer: Status: Chronic Assessment and plan: POD #3 s/p Hemicolectomy Has been having small BM's and passing a small amount of flatus Tolerating clears Will continue on clear liquids today. HOpefully advance to regular tomorrow Potential discharge Friday or friday (6) Allergic rhinitis: (7) Cigarette nicotine dependence: Assessment and plan: - Patient has been using Acapella for secretion control. Sputum is clear Qualifiers: Substance use status: uncomplicated Qualified Code(s): F17.210 - Nicotine dependence, cigarettes, uncomplicated (8) CKD (chronic kidney disease): (9) Degenerative disc disease, lumbar: Assessment and plan: Patient asking for a fentanyl patch Once the epidural has been stopped will trial on a fentanyl patch Subjective Subjective Interval history since last seen: Jenise is doing well. No issues overnight. NO fevers. Vitals are stable Passing some flatus and small liquid stools. Tolerating clear lqiuids Exam Const General: comfortable and no acute distress Orientation: alert and oriented x3 HENMT Head: normocephalic and atraumatic Resp Effort & Inspection: normal respiratory effort Auscultation: clear to auscultation bilaterally Cardio Rate: regular rate Rhythm: regular rhythm GI Inspection: other (MARYURI is in place) Palpation: soft and nontender Auscultation: hypoactive bowel sounds Objective Last Vital Signs Temp 99.1 F 05/11/22 04:00 Pulse 64 05/10/22 18:01 Resp 28 H 05/10/22 20:00 BP 127/80 05/10/22 18:01 Pulse Ox 96 05/10/22 18:01 Laboratory Results - last 24 hr 05/11/22 05/11/22 05/11/22 05:16 05:16 05:16 WBC 7.80 RBC 3.62 L Hgb 11.6 Hct 35.4 L MCV 98 H MCH 32.0 MCHC 32.8 RDW 12.9 Plt Count 133 MPV 10.5 Immature Gran % 0.3 Neutrophils % 60.0 Lymphocytes % 29.6 Monocytes % 6.9 Eosinophils % 2.7 Basophils % 0.5 Nucleated RBC % 0.0 Absolute Neutrophils 4.68 Absolute Lymphocytes 2.31 Absolute Monocytes 0.54 Absolute Eosinophils 0.21 Absolute Basophils 0.04 Sodium 139 Potassium 3.7 Chloride 105 Carbon Dioxide 23.7 Anion Gap 10.3 BUN 14 Creatinine 0.8 Est GFR (CKD-EPI 2020) 75.37 Glucose 90 Calcium 9.0 Magnesium 1.5 L Vitamin B12 530 Folate > 20.0 H PAWSS Have you Been Recently Intoxicated or Drunk Within the Last 30 days?: No Have you Ever Experienced Previous Episodes of Alcohol Withdrawal?: No Have you ever Experienced Withdrawal Seizures?: No Have you ever Experienced Delirium Tremens(DT)s?: No Have you ever undergone Alcohol Rehabilitation Treatment (i.e, inpt ot outpatient treatment programs)?: No Have you ever Experienced Blackouts?: No Have you ever Combined Alcohol with other Downers within the last 90 days?: No Have you ever Combined Alcohol with any other Substance of Abuse during the last 90 days?: No Evidence of Increased Autonomic Activity (i.e. HR>120, tremor, sweating, agitation, nausea)?: No Result: 0
[2022-05-11] MEDS: FentaNYL/ROPIvacaine 2 mcg/ml and 0.1% 200 ML CADD Cassette EP (11:42)
[2022-05-11] MEDS: Pantoprazole 40 MG VIAL IVP (11:48)
[2022-05-11] MEDS: guaiFENesin 600 MG TABCR PO (11:49)
[2022-05-11] MEDS: MAGNESIUM SULFATE 4 GM/100 ML BAG IVPB (11:49)
[2022-05-11] MEDS: Enoxaparin 40 MG/0.4 ML SYR SC (11:49)
--- NOTE | 2022-05-11 12:39 | W.ANESEPD ---
Epidural/Spinal Daily Note Date Performed: 05/11/22 Assessment Time: 12:28 Patient Location: Intensive Care Unit Catheter Type in Place: Epidural Catheter Dressing Assessment: Dressing intact with good adherence Catheter Assessment: Catheter Labeled and Intact and Functioning Previous Catheter Depth Noted (cm): 12 Current Catheter Depth (cm): 12 Current Medication Infusion: Ropivacaine 0.1% with Fentanyl 2mcg/ml Current Maintenance Infusion Rate (ml/hour): 6 Current PCEA Bolus Dose (ml): 5 Current Pain Score (0-10): 4 Medication Infusion Stopped, Catheter Removal Planned: No New Bolus Given or Change in Infusion Made: No Completed By: Augusto Zazueta
[2022-05-11] MEDS: Gabapentin 300 MG CAP PO ×2 (13:45→19:46)
--- NOTE | 2022-05-11 14:19 | PT.INTREAT ---
Date of service: 05/11/22 Time of Service: 08:25 PT Notes Visit Reasons: s/p Hemicolectomy for Colon Cancer Inpatient Physical Therapy Treatment Note [facility] Date: 05/11/2022 PRECAUTIONS: Activity as tolerated SUBJECTIVE: Jenise is pleasant and agreeable to participating in PT.? She reports that she is feeling better today. OBJECTIVE:? PAIN: Patient c/o some abdominal pain with transfers ? BED MOBILITY/TRANSFERS? Sit-stand: S? Stand-sit: S ? GAIT? Assistive Device: FWW? Weight bearing: Full Assist: SBA ? Distance:?400'? Deviation: Gait unremarkable THEREX: Patient was instructed in a LE strengthening program, completed in a seated position, to include: ankle pumps, LAQ, hip abduction and hip flexion. She demonstrates equal strength and range, bilaterally. ASSESSMENT:? Patient tolerated session with minimal complaint of abdominal pain with transfers. She was able to tolerate a progression in gait distance with FWW support and SBA. She also tolerates the addition of open-chain LE strengthening exercises, demonstrating equal strength and range, bilaterally. PLAN: Continue with gait and transfer training, as well as global strengthening and conditioning for improved mobility and activity tolerance. TREATMENT CODE/TIME: 25 minutes; 28212, [id number] (08:25)
[2022-05-11] MEDS: Normal Saline Flush 10 ML SYR IV (16:59)
--- NOTE | 2022-05-11 17:37 | NUR.NOTE ---
Nursing Note:Patient transferred from ICU at 1730. Patient settled into room 206. See shift assessment.
[2022-05-11] MEDS: Celecoxib 200 MG CAP PO (19:46)
[2022-05-11] MEDS: traZODone 100 MG TAB PO (22:27)
[2022-05-12] MEDS: FentaNYL/ROPIvacaine 2 mcg/ml and 0.1% 200 ML CADD Cassette EP (00:25)
[2022-05-12 01:45] VITALS: PULSE 60
[2022-05-12] MEDS: Normal Saline Flush 10 ML SYR IV ×2 (03:59→08:25)
[2022-05-12] MEDS: ACETAMINOPHEN 1,000 MG/100 ML BTL 400 MG IVPB ×2 (04:00→09:59)
[2022-05-12] MEDS: Levothyroxine 175 MCG TAB PO (05:32)
[2022-05-12 07:00] VITALS: BP 112/69; PULSE 57; PULSE 69; RESP 17; TEMP 36.5; O2SAT 94
[2022-05-12 07:25] LABS: Abs Immature Grans 0.02 10^3/uL (0.0-0.06); Absolute Basophil Count 0.03 10^3/uL (0.0-0.2); Absolute Eosinophil Count 0.29 10^3/uL (0.0-0.7); Absolute Lymphocyte Count 1.92 10^3/uL (1.2-3.4); Absolute Monocyte Count 0.35 10^3/uL (0.1-0.8); Absolute Neutrophil Count 3.08 10^3/uL (1.2-6.7); Basophils % 0.5; Eosinophils % 5.1; HCT 35.4 % (36.0-46.0); HGB 11.7 g/dL (11.2-15.7); Immature Grans % 0.4; Lymphocytes % 33.7; MCH 32.2 pg (27.0-33.0); MCHC 33.1 % (32.0-36.0); MCV 98 fL (80-95); MPV 10.5 fL (8.0-11.0); Monocytes % 6.2; Neutrophils % 54.1; Platelet Count 145 10^3/uL (130-400); RBC 3.63 10^6/uL (3.93-5.22); RDW 12.7 % (11.7-14.6); RDW-SD 45.5 fL; WBC 5.69 10^3/uL (4.4-10.8)
[2022-05-12 07:37] LABS: Anion Gap 8.2 mmol/L (3-11); BUN 9 mg/dL (7-18); CO2 25.8 mmol/L (21.0-32.0); CREATININE 0.8 mg/dL (0.55-1.02); Calcium 8.9 mg/dL (8.5-10.1); Chloride 109 mmol/L (98-107); Estimated GFR 75.37 (mL/min/1.73m2); Glucose 100 mg/dL (74-106); Magnesium 1.8 mg/dL (1.8-2.4); Potassium 3.2 mmol/L (3.5-5.1); Sodium 143 mmol/L (136-145)
--- NOTE | 2022-05-12 08:18 | W.ANESEPD ---
Epidural/Spinal Daily Note Date Performed: 05/12/22 Assessment Time: 08:18 Patient Location: Med/Surg Catheter Type in Place: Epidural Catheter Dressing Assessment: Other Catheter Assessment: Planned Removal, team aware, Anticoagulant Therapy Addressed Previous Catheter Depth Noted (cm): 0 Current Catheter Depth (cm): 0 Current Medication Infusion: Other Current Maintenance Infusion Rate (ml/hour): 0 Current PCEA Bolus Dose (ml): 0 Current Pain Score (0-10): 0 Medication Infusion Stopped, Catheter Removal Planned: Yes New Bolus Given or Change in Infusion Made: No Daily Management Comments: chatted about planned removal later today (last enoxaparin yesterday at ~09). stated after moving around last night she has been more sore. dressing noted to be minimally on, catheter unable to be visualized, but on removal of dressing minimal was in her. Catheter was removed, tip intact. Enoxaparin to be held for 4 hours. RN aware. Completed By: Augusto Zazueta
[2022-05-12] MEDS: Pantoprazole 40 MG VIAL IVP (08:25)
[2022-05-12] MEDS: Gabapentin 300 MG CAP PO ×3 (08:26→20:40)
[2022-05-12] MEDS: Celecoxib 200 MG CAP PO ×2 (08:26→20:40)
[2022-05-12] MEDS: Nystatin POWDER 60 GM JAR TP ×3 (08:40→21:02)
--- NOTE | 2022-05-12 11:15 | PGE_ITS ---
Date of Service Date of service: 05/12/22 Time of Service: 11:18 Assessment and Plan Assessment and plan (1) Colon cancer: Status: Chronic Assessment and plan: Postop day #4 She is off of antibiotics Epidural was removed today DC Smith Encourage walking and incentive spirometer We discussed the importance of smoking cessation when she gets out of the hospital. I changed her mar's catheter today her incision looks good I discussed with the patient and her daughter expectations when she gets out of the hospital She is back on all her home medications. She takes a large amount of narcotics daily and is on both Percocet and morphine elixir. She needs to watch for constipation and avoid straining to go to the bathroom Hep-Lock IV Encourage walking Full liquid diet. If she tolerates this well then advance to surgical soft diet. (2) Mixed stress and urge urinary incontinence: Status: Acute (3) SUGEY on CPAP: Status: Chronic (4) Peripheral neuropathy: Status: Acute (5) Periodic limb movement disorder: Status: Acute (6) Idiopathic sleep related nonobstructive alveolar hypoventilation: Status: Acute (7) History of prediabetes: Status: Acute (8) Hypothyroidism: Status: Chronic (9) Mobitz II: Status: Acute (10) Bradycardia following surgery: Status: Acute (11) Second degree type II atrioventricular block: Status: Resolved (12) Severe obesity: Status: Acute (13) Obstructive sleep apnea syndrome: Status: Acute Subjective Subjective Interval history since last seen: Pt is doing well. no headaches. No CP or SOB. no productive cough. no dysu jack. no leg pain or swelling. Is tolerating clear liquids and moving her bowels. She has not noticed any blood. She is not currently on any beta-blockers and her blood pressure is good. She denies any chest pain or shortness of breath. She still is having a lot of wheezing. She is coughing up clear sputum. We discussed the importance of smoking cessation Exam Narrative Exam Narrative: PHYSICAL EXAM GENERAL APPEARANCE: Alert, healthy appearance, oriented, in no acute distress SKIN: No rashes.? No breakdown HYDRATION: Well hydrated HEAD, EYES, EARS, NECK, THROAT: Head is normocephalic, pupils equal, round, reactive to light and accommodation, ocular movement intact, sclera clear and no jaundice. ?Dentition intact. No sore throat.? No jaw pain. No thrush NECK: Supple, Trachea midline. No JVD. LUNGS: normal respiration/nl chest excursion. ?Clear to auscultation B/l no R/R/W ?HEART: Regular rate and rhythm, EXTREMITY: No edema or cyanosis? no leg pain, redness, swelling.? No IV infiltration ABDOMEN: Incision is clean dry and intact. I did change her mar's dressing today. She has no drains. Normal bowel sounds. No breakdown. We will take out her Smith today. NEURO: no focal neuro deficits. Epidural was removed today. Objective Last Vital Signs Temp 36.5 C 05/12/22 07:00 Pulse 69 05/12/22 07:00 Resp 17 05/12/22 07:00 BP 112/69 05/12/22 07:00 Pulse Ox 94 05/12/22 07:00 Laboratory Results - last 24 hr 05/12/22 05/12/22 06:15 06:15 WBC 5.69 RBC 3.63 L Hgb 11.7 Hct 35.4 L MCV 98 H MCH 32.2 MCHC 33.1 RDW 12.7 Plt Count 145 MPV 10.5 Immature Gran % 0.4 Neutrophils % 54.1 Lymphocytes % 33.7 Monocytes % 6.2 Eosinophils % 5.1 Basophils % 0.5 Nucleated RBC % 0.0 Absolute Neutrophils 3.08 Absolute Lymphocytes 1.92 Absolute Monocytes 0.35 Absolute Eosinophils 0.29 Absolute Basophils 0.03 Sodium 143 Potassium 3.2 L Chloride 109 H Carbon Dioxide 25.8 Anion Gap 8.2 BUN 9 Creatinine 0.8 Est GFR (CKD-EPI 2020) 75.37 Glucose 100 Calcium 8.9 Magnesium 1.8 PAWSS Have you Been Recently Intoxicated or Drunk Within the Last 30 days?: No Have you Ever Experienced Previous Episodes of Alcohol Withdrawal?: No Have you ever Experienced Withdrawal Seizures?: No Have you ever Experienced Delirium Tremens(DT)s?: No Have you ever undergone Alcohol Rehabilitation Treatment (i.e, inpt ot outpatient treatment programs)?: No Have you ever Experienced Blackouts?: No Have you ever Combined Alcohol with other Downers within the last 90 days?: No Have you ever Combined Alcohol with any other Substance of Abuse during the last 90 days?: No Evidence of Increased Autonomic Activity (i.e. HR>120, tremor, sweating, agitation, nausea)?: No Result: 0
[2022-05-12] MEDS: oxyCODONE 5 mg/Acetaminophen 325 mg TAB 2 TAB PO ×3 (11:19→22:01)
--- NOTE | 2022-05-12 11:50 | PT.INTREAT ---
PT Notes Visit Reasons: s/p Hemicolectomy for Colon Cancer Date: 05/12/2022 PRECAUTIONS: Activity as tolerated SUBJECTIVE: Pt pleasant and agreeable to therapy.?pt in high spirits reports feeling good today despite 6/10 for abdominal pain. OBJECTIVE:? PAIN: 6/10 abdominal pain ? BED MOBILITY/TRANSFERS? Sit-stand: S? Stand-sit: S ? GAIT? Assistive Device: FWW? Weight bearing: Full Assist: SBA ? Distance:?600'? Deviation: Gait unremarkable THEREX: Patient was instructed in a LE strengthening program, completed in a seated position, to include: ankle pumps, LAQ, hip abduction and hip flexion.? ASSESSMENT:? Pt reports that she feels much better after gait training with pain going down to 3/10. PLAN: Continue with gait and transfer training, as well as global strengthening and conditioning for improved mobility and activity tolerance. TREATMENT CODE/TIME: 25 minutes; 34774, 28327 (09:30)
[2022-05-12] MEDS: POTASSIUM CHLORIDE 10 MEQ/100 ML BAG 25 MEQ IVPB ×2 (11:58→16:46)
[2022-05-12 15:11] VITALS: PULSE 104
--- NOTE | 2022-05-12 15:15 | RT.EKG_ITS ---
APPROVED REPORT Exam: Resting ECG Reason for Exam: change in rhythm Patient Location: I HR:56 bpm ECG Measurements Heart Rate 56 AXIS LA [id number] P [id number] QRSd 108 QRS 37 QT 452 T 57 QTc 437 Conclusion Gerryitz 1 second-degree AV block
[2022-05-12 15:30] VITALS: BP 144/67; PULSE 55; RESP 17; TEMP 36.4; O2SAT 96
[2022-05-12 20:25] LABS: Anaplasma phagocytophilum Negative (Negative); B. miyamotoi PCR Negative (Negative); Babesia divergens/MO-1 Negative (Negative); Babesia duncani Negative (Negative); Babesia microti Negative (Negative); Ehrlichia chaffeensis Negative (Negative); Ehrlichia ewingii/canis Negative (Negative); Ehrlichia muris eauclairensis Negative (Negative)
[2022-05-12] MEDS: traZODone 100 MG TAB PO (22:01)
[2022-05-12 22:47] VITALS: BP 131/80; PULSE 82; RESP 19; TEMP 36.6; O2SAT 98
[2022-05-12 23:05] VITALS: PULSE 99
[2022-05-13] VITALS (7 sets, daily range): BP systolic 126–173; BP diastolic 77–95; PULSE 61–84; RESP 19–21; TEMP 36.2–37.4; O2SAT 92–97
--- NOTE | 2022-05-13 04:43 | W.PM.PROGNOT ---
Date of Service Date of service: 05/13/22 Time of Service: 04:43 Assessment and Plan Assessment and plan (1) Colon cancer: Status: Chronic Assessment and plan: I adjusted her opioid therapy to at least meet her home dosing regimen. Obviously, her longstanding pain is going to make this challenging. I consulted palliative care at her request. I restarted her oxybutynin to help with any kind of bladder discomfort. Subjective Subjective Interval history since last seen: She says her pain remains poorly controlled over the past 24 to 48 hours. She is requesting a consultation with palliative care therapy to assist with management of her chronic pain. She says she is passing gas, and had some bowel movement. She denies any nausea or vomiting. Exam GI Inspection: non-distended Palpation: soft and tender Percussion: dullness to percussion Auscultation: normal bowel sounds Objective Last Vital Signs Temp 97.9 F 05/13/22 03:45 Pulse 61 05/13/22 03:45 Resp 20 05/13/22 03:45 BP 126/77 05/13/22 03:45 Pulse Ox 92 05/13/22 03:45 Laboratory Results - last 24 hr 05/10/22 05/12/22 05/12/22 05:40 06:15 06:15 WBC 5.69 RBC 3.63 L Hgb 11.7 Hct 35.4 L MCV 98 H MCH 32.2 MCHC 33.1 RDW 12.7 Plt Count 145 MPV 10.5 Immature Gran % 0.4 Neutrophils % 54.1 Lymphocytes % 33.7 Monocytes % 6.2 Eosinophils % 5.1 Basophils % 0.5 Nucleated RBC % 0.0 Absolute Neutrophils 3.08 Absolute Lymphocytes 1.92 Absolute Monocytes 0.35 Absolute Eosinophils 0.29 Absolute Basophils 0.03 Sodium 143 Potassium 3.2 L Chloride 109 H Carbon Dioxide 25.8 Anion Gap 8.2 BUN 9 Creatinine 0.8 Est GFR (CKD-EPI 2020) 75.37 Glucose 100 Calcium 8.9 Magnesium 1.8 A.phagocytophil DNA PCR Negative B. divergens/MO-1 PCR Negative Babesia duncani (PCR) Negative Babesia microti DNA PCR Negative Borrelia (PCR) Negative E.chaffeensis DNA (PCR) Negative E.ewingii/canis DNA PCR Negative E. muris-like DNA (PCR) Negative PAWSS Have you Been Recently Intoxicated or Drunk Within the Last 30 days?: No Have you Ever Experienced Previous Episodes of Alcohol Withdrawal?: No Have you ever Experienced Withdrawal Seizures?: No Have you ever Experienced Delirium Tremens(DT)s?: No Have you ever undergone Alcohol Rehabilitation Treatment (i.e, inpt ot outpatient treatment programs)?: No Have you ever Experienced Blackouts?: No Have you ever Combined Alcohol with other Downers within the last 90 days?: No Have you ever Combined Alcohol with any other Substance of Abuse during the last 90 days?: No Evidence of Increased Autonomic Activity (i.e. HR>120, tremor, sweating, agitation, nausea)?: No Result: 0
[2022-05-13] MEDS: Celecoxib 200 MG CAP PO ×2 (09:07→19:46)
[2022-05-13] MEDS: oxyCODONE 5 mg/Acetaminophen 325 mg TAB 2 TAB PO ×2 (09:07→13:58)
[2022-05-13] MEDS: Enoxaparin 40 MG/0.4 ML SYR SC (09:09)
[2022-05-13] MEDS: buPROPion-CR 150 MG TABCR PO (09:09)
[2022-05-13] MEDS: Gabapentin 300 MG CAP PO ×3 (09:09→19:46)
--- NOTE | 2022-05-13 09:55 | PDOC.CMPRO ---
- If Service Date Differs Date of service: 05/13/22 Time of Service: 09:55 Care Management Progress Note S/O: Per MD, antibiotics discontinued, epidural and calvin removed, ambulation and IS use are being encouraged. Remains on full liquid diet, monitored for toleration; anticipate advancement today. Jenise was lying in bed, teary when discussing life-limiting pain and mobility since COVID. She stated she mostly sits at home and wants to be more active, but is limited by Pain. She reports feeling more motivated post surgery, and wants to advocate for better pain management to get active again, and ride her horse. CM continues to follow. A: 76 year old female admitted to [facility] 05/08/22 s/p hemicolectomy for Colon Cancer P: Jenise will return home when ready per MD. She will follow up with her PCP and plan of care as prescribed. Anticipate new home health orders for RN/PT-tommy-MILAGRO, CHRISTIAN also requested Palliative Consult to discuss life-limited chronic pain. She will transport via private vehicle with family.
[2022-05-13] MEDS: Levothyroxine 175 MCG TAB PO (10:08)
[2022-05-13] MEDS: Nystatin POWDER 60 GM JAR TP ×3 (10:09→21:48)
--- NOTE | 2022-05-13 10:57 | PT.INTREAT ---
Date of service: 05/13/22 Time of Service: 09:35 PT Notes Visit Reasons: s/p Hemicolectomy for Colon Cancer Inpatient Physical Therapy Treatment Note [facility] Date: 05/13/2022 PRECAUTIONS: Activity as tolerated SUBJECTIVE: Jenise is pleasant and agreeable to participating in PT.? She reports that she is having some increased pain in abdomen since the removal of her epidural. She reports that she has been awake since 4:30 this morning and has been walking within her room independently, and completing some exercises. OBJECTIVE:? PAIN: Patient c/o some abdominal pain with transfers ? BED MOBILITY/TRANSFERS? Supine-sit: I with HOB at 45 degrees utilizing log rolling method Sit-supine: I with HOB at 45 degrees utilizing log rolling method Sit-stand: I? Stand-sit: I ? GAIT? Assistive Device: FWW? Weight bearing: Full Assist: S in a.m.; I in p.m. ? Distance:?600' in a.m.; 300' in p.m.? Deviation: Antalgic gait (chronic due to leg length discrepancy) THEREX: Patient was instructed in a LE strengthening program, completed in a standing position, to include: heel raises, hip abduction, mini squats and hip extension. ASSESSMENT:? Patient tolerated session with complaint of increased fatigue with gait training and of SOB with ther ex completion. She was able to tolerate a progression in gait distance with FWW support and supervision. She also tolerates the addition of closed and open-chain LE strengthening exercises. PLAN: Continue with global strengthening and conditioning for improved mobility and activity tolerance. TREATMENT CODE/TIME: Session 1: 26 minutes; 73681 x2 (09:35) Session 2: 18 minutes; 34017 (13:58)
[2022-05-13 11:09] LABS: Lyme Ab w Rflx to Lyme Confirm Negative (Negative)
[2022-05-13] MEDS: Normal Saline Flush 10 ML SYR IV ×2 (14:35→19:47)
[2022-05-13] MEDS: Lidocaine 5% Patch 1 PATCH TP (18:35)
[2022-05-13] MEDS: Acetaminophen 325 MG TAB 650 MG PO (19:44)
[2022-05-13] MEDS: oxyCODONE 10 MG TAB 20 MG PO (19:45)
[2022-05-14] VITALS (8 sets, daily range): BP systolic 127–149; BP diastolic 69–80; PULSE 54–94; RESP 16–18; TEMP 36.5–37.2; O2SAT 95–97
[2022-05-14] MEDS: Levothyroxine 175 MCG TAB PO (05:24)
[2022-05-14] MEDS: Lidocaine Patch Removal 1 EACH TP (05:35)
[2022-05-14] MEDS: buPROPion-CR 150 MG TABCR PO (08:06)
[2022-05-14] MEDS: oxyCODONE 10 MG TAB 20 MG PO ×3 (08:06→21:51)
[2022-05-14] MEDS: Acetaminophen 325 MG TAB 650 MG PO (08:06)
[2022-05-14] MEDS: Celecoxib 200 MG CAP PO ×2 (08:06→21:51)
[2022-05-14] MEDS: Nystatin POWDER 60 GM JAR TP ×3 (08:07→21:53)
[2022-05-14] MEDS: Gabapentin 300 MG CAP PO ×3 (08:07→21:52)
[2022-05-14] MEDS: Oxybutynin-CR 5 MG TABCR PO (08:09)
[2022-05-14] MEDS: Enoxaparin 40 MG/0.4 ML SYR SC (10:44)
[2022-05-14] MEDS: fentaNYL 25 MCG PATCH TD (10:55)
[2022-05-14] MEDS: Potassium Chloride 20 MEQ TABCR PO (10:57)
--- NOTE | 2022-05-14 12:40 | PGE_ITS ---
Date of Service Date of service: 05/14/22 Time of Service: 12:40 Assessment and Plan Assessment and plan (1) Colon cancer: Status: Chronic Assessment and plan: pod#6 Open transverse colectomy for colon cancer Advance to surgical soft diet Continue pulmonary toilet. She still is having wheezing at bases and coughing. Discussed with patient the importance of smoking cessation. She is at high risk for developing a hernia. Hopefully she can go home tomorrow. We added in a fentanyl patch for pain control. Patient will be referred to the pain clinic for consideration of steroid injections for better pain control and increase mobility no labs today continue w/ PT (2) Mixed stress and urge urinary incontinence: Status: Acute (3) SUGEY on CPAP: Status: Chronic (4) Peripheral neuropathy: Status: Acute Assessment and plan: POD#6 s/p transverse open colectomy advnace to regular diet Patient is on high-dose narcotics at home for chronic pain we have had difficulty controlling her postop pain. Pain plan includes 1000 mg Tylenol 3 times daily/lidocaine patches every 12/MS Contin 15 mg twice daily scheduled Oxy IR, 20 mg every 6 hours as needed for pain today we added a 25 mcg fentanyl patch Also on: gabapentin/celexacob -cont PT ADAT Subjective Subjective Interval history since last seen: Pt is doing well. no headaches. No CP or SOB. no productive cough. no dysuria. no leg pain or swelling. Patient is tolerating full liquids. She is having about 4-5 bowel movements a day that range from liquid to soft. There is no blood. She is coughing up clear to whitish sputum. She is still coughing but not as severe as she was. She still has a few wheezes bilaterally lower lung guadalupe. Exam Narrative Exam Narrative: PHYSICAL EXAM GENERAL APPEARANCE: Alert, healthy appearance, oriented, in no acute distress SKIN: No rashes.? No breakdown HYDRATION: Well hydrated HEAD, EYES, EARS, NECK, THROAT: Head is normocephalic, pupils equal, round, felipe ctive to light and accommodation, ocular movement intact, sclera clear and no jaundice. ?Dentition intact. No sore throat.? No jaw pain. No thrush LUNGS: normal respiration/nl chest excursion. ?HEART: Regular rate and rhythm, EXTREMITY: Chronic lower extremity nonpitting edema/venous stasis. No IV infiltration. Chronic osteoarthritis and changes from arthritis throughout her spine large joints and small joints. No acute redness or swelling. ABDOMEN: Amy's is clean dry and intact and functioning. There is no strike through. Normal bowel sounds NEURO: no focal neuro deficits. Objective Last Vital Signs Temp 36.7 C 05/14/22 11:42 Pulse 77 05/14/22 11:42 Resp 17 05/14/22 11:42 BP 129/79 05/14/22 11:42 Pulse Ox 95 05/14/22 11:42 PAWSS Have you Been Recently Intoxicated or Drunk Within the Last 30 days?: No Have you Ever Experienced Previous Episodes of Alcohol Withdrawal?: No Have you ever Experienced Withdrawal Seizures?: No Have you ever Experienced Delirium Tremens(DT)s?: No Have you ever undergone Alcohol Rehabilitation Treatment (i.e, inpt ot outpatient treatment programs)?: No Have you ever Experienced Blackouts?: No Have you ever Combined Alcohol with other Downers within the last 90 days?: No Have you ever Combined Alcohol with any other Substance of Abuse during the last 90 days?: No Evidence of Increased Autonomic Activity (i.e. HR>120, tremor, sweating, agitation, nausea)?: No Result: 0
[2022-05-14] MEDS: Acetaminophen 325 MG TAB 1000 MG PO (13:32)
--- NOTE | 2022-05-14 14:54 | PT.INTREAT ---
Date of service: 05/14/22 PT Notes Visit Reasons: s/p Hemicolectomy for Colon Cancer Inpatient Physical Therapy Treatment Note [facility] Date: 05/14/2022 PRECAUTIONS: Activity as tolerated SUBJECTIVE: Jenise is pleasant and agreeable to participating in PT.? She reports that she is very tired as she has not slept well the past several nights. OBJECTIVE:? PAIN: Patient c/o some abdominal pain with some ther ex ? BED MOBILITY/TRANSFERS? Sit-supine: I with HOB at 30 degrees utilizing log rolling method Sit-stand: I? Stand-sit: I ? GAIT: Declined? THEREX: Patient was instructed in a core stabilization and LE strengthening program, completed in both side-lying and supine positions, to include: clamshells, SL hip extension, SL hip abduction, bent-knee fallouts, modified bridging with abdominal bracing, and SLR. Patient demonstrates SOB with activity, requires brief rests throughout. ASSESSMENT:? Patient tolerated session with complaint of abdominal discomfort with some ther ex completion. She continues to demonstrate independence with bed mobility and transfers at this time. PLAN: Continue with global strengthening and conditioning for improved mobility and activity tolerance. TREATMENT CODE/TIME: 15 minutes; 26030 (13:10)
--- NOTE | 2022-05-14 15:55 | PDOC.CMPRO ---
- If Service Date Differs Date of service: 05/14/22 Time of Service: 15:55 Care Management Progress Note S/O: Jenise remains pleasant in interaction and continues to engage well with PT, she has not slept well over the past few nights. Diet advanced to regular; monitoring for toleration. CM discussed Jenise's concerns around life limiting pain with Dr. Jennings; Pain Clinic and Palliative Consult initiated. CM continues to follow. A: 76 year old female admitted to [facility] 05/08/22 s/p hemicolectomy for Colon Cancer P: Jenise will return home when ready per MD, as soon as tomorrow. She will follow up with her PCP and plan of care as prescribed. Anticipate new home health orders for RN/PT-vs-[facility], CM also requested Palliative Consult to discuss life-limited chronic pain-MD referring to Pain Clinic as well. Jenise will transport via private vehicle with family.
--- NOTE | 2022-05-14 17:00 | CHAPLAIN ---
Jenise was more upbeat today. She said she realized she was sinking into a spiral of clinical depression because of her pain. Her President And Ceo, Cierra arranged for someone to go with Jenise to her medical appoints to help her advocate for herself for better pain control. She also learned to use a few apps that help her relax and fall asleep at night. 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 She has nine children, three live close by. She said raising her children required her to strong and brave and care for them, and didn't allow her much time for herself. One of her daughters works for [employer]. Jenise is a member of the [employer], although she has moved to [place], and her supplier manager Rev. [place] Moseley has visited twice.
[2022-05-14] MEDS: Albuterol HFA 8 GM 60 PUFF INH IH (17:43)
[2022-05-14] MEDS: Lidocaine 5% Patch 1 PATCH TP (18:07)
[2022-05-14] MEDS: Normal Saline Flush 10 ML SYR IV (21:50)
[2022-05-14] MEDS: Simethicone 80 MG CHEW PO (21:50)
[2022-05-14] MEDS: traZODone 100 MG TAB PO (21:52)
[2022-05-14] MEDS: Acetaminophen 500 MG TAB 1000 MG PO (21:53)
[2022-05-15] MEDS: Albuterol HFA 8 GM 60 PUFF INH IH ×5 (00:45→23:27)
[2022-05-15] MEDS: Levothyroxine 175 MCG TAB PO (06:12)
[2022-05-15] MEDS: Lidocaine Patch Removal 1 EACH TP (06:13)
[2022-05-15 07:08] LABS: Platelet Count 190 10^3/uL (130-400)
[2022-05-15 07:34] VITALS: BP 144/86; PULSE 79; RESP 18; TEMP 36.5; O2SAT 92
[2022-05-15] MEDS: Normal Saline Flush 10 ML SYR IV (08:16)
[2022-05-15] MEDS: Oxybutynin-CR 5 MG TABCR PO (08:17)
[2022-05-15] MEDS: Enoxaparin 40 MG/0.4 ML SYR SC (08:17)
[2022-05-15] MEDS: Gabapentin 300 MG CAP PO ×3 (08:17→20:07)
[2022-05-15] MEDS: Acetaminophen 500 MG TAB 1000 MG PO ×3 (08:17→20:07)
[2022-05-15] MEDS: oxyCODONE 10 MG TAB 20 MG PO ×3 (08:18→20:07)
[2022-05-15] MEDS: buPROPion-CR 150 MG TABCR PO (08:18)
[2022-05-15] MEDS: Celecoxib 200 MG CAP PO ×2 (08:18→20:07)
[2022-05-15] MEDS: Nystatin POWDER 60 GM JAR TP ×3 (08:19→20:07)
--- NOTE | 2022-05-15 10:22 | W.PM.PROGNOT ---
Date of Service Date of service: 05/15/22 Time of Service: Assessment and Plan Assessment and plan (1) Colon cancer: Status: Chronic Assessment and plan: pod#7 Open transverse colectomy for colon cancer Advance to surgical soft diet Continue pulmonary toilet. Discussed with patient the importance of smoking cessation. She is at high risk for developing a hernia. Plan is for discharge tomorrow. We added in a fentanyl patch for pain control which is working well. Patient will be referred to the pain clinic for consideration of steroid injections for better pain control and increase mobility no labs today continue w/ PT (2) Mixed stress and urge urinary incontinence: Status: Acute (3) SUGEY on CPAP: Status: Chronic (4) Peripheral neuropathy: Status: Acute Subjective Subjective Interval history since last seen: Barabara is feeling better with the Fentanyl patch in place. Pain is now a 3/10. She has been up and walking with a walker and or the cane. She is having multiple Stools a day from liquid to formed Tolerating a diet Exam Const General: comfortable and no acute distress HENMT Head: normocephalic and atraumatic Resp Effort & Inspection: normal respiratory effort Auscultation: clear to auscultation bilaterally Cardio Rate: regular rate Rhythm: regular rhythm GI Inspection: incision (c/d/i with bruising noted) Palpation: soft, no hepatosplenomegaly and nontender Auscultation: normal bowel sounds Objective Last Vital Signs Temp 97.7 F 05/15/22 07:34 Pulse 79 05/15/22 07:34 Resp 18 05/15/22 07:34 BP 144/86 H 05/15/22 07:34 Pulse Ox 92 05/15/22 07:34 Laboratory Results - last 24 hr 05/15/22 06:15 Plt Count 190 PAWSS Have you Been Recently Intoxicated or Drunk Within the Last 30 days?: No Have you Ever Experienced Previous Episodes of Alcohol Withdrawal?: No Have you ever Experienced Withdrawal Seizures?: No Have you ever Experienced Delirium Tremens(DT)s?: No Have you ever undergone Alcohol Rehabilitation Treatment (i.e, inpt ot outpatient treatment programs)?: No Have you ever Experienced Blackouts?: No Have you ever Combined Alcohol with other Downers within the last 90 days?: No Have you ever Combined Alcohol with any other Substance of Abuse during the last 90 days?: No Evidence of Increased Autonomic Activity (i.e. HR>120, tremor, sweating, agitation, nausea)?: No Result: 0
--- NOTE | 2022-05-15 13:04 | CMPROGNOTE_ITS ---
- If Service Date Differs Date of service: 05/15/22 Time of Service: 13:04 Care Management Progress Note S/O: Jenise remains pleasant in interaction and continues to engage well with PT, when she feels her pain is managed, she walked a quarter of the Med/Surg loop today with her cane. She will meet with Palliative Care this afternoon to discuss goals of care and chronic pain; please refer to documentation. Pain Clinic consult initiated as well. CM continues to follow. A: 76 year old female admitted to [facility] 05/08/22 s/p hemicolectomy for Colon Cancer P: Jenise will return home when ready per MD, as soon as tomorrow. She will follow up with her PCP and plan of care as prescribed. Anticipate new home health orders for RN/PT, through [facility], Palliative will continue to follow, Pain Clinic follow up and referral completed for [facility]: [facility] and [facility]. Jenise will transport via private vehicle with family.
--- NOTE | 2022-05-15 14:48 | PT.INNT ---
Date of service: 05/15/22 Time of Service: 14:48 PT Notes Visit Reasons: s/p Hemicolectomy for Colon Cancer 05/15/2022 Attempted to engage patient in PT services x3, however, patient was unavailable x3 this afternoon. Will attempt to resume PT services tomorrow morning.
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
[2022-05-15] MEDS: Lidocaine 5% Patch 1 PATCH TP (17:24)
[2022-05-15] MEDS: Simethicone 80 MG CHEW PO (20:17)
[2022-05-15 23:22] VITALS: BP 131/70; PULSE 78; RESP 18; TEMP 36.7; O2SAT 96
[2022-05-16] MEDS: Levothyroxine 175 MCG TAB PO (05:18)
[2022-05-16] MEDS: Albuterol HFA 8 GM 60 PUFF INH IH ×2 (05:18→11:36)
[2022-05-16] MEDS: Lidocaine Patch Removal 1 EACH TP (05:19)
[2022-05-16 07:40] VITALS: BP 120/78; PULSE 66; RESP 16; TEMP 36.4; O2SAT 97
--- NOTE | 2022-05-16 09:05 | CMPROGNOTE_ITS ---
- If Service Date Differs Date of service: 05/16/22 Time of Service: 09:05 Care Management Progress Note S/O: Shiloh is sitting up in her chair when CM met with her. She is awake, alert and pleasant in interaction. Shiloh feels very supported at home. She shares that her children keep a good eye on her and she has a friend who is always willing to help. Per Shiloh, she is connected with [facility] and has no social needs at this time. She is willing to have [facility] services following her discharge. A: 76 year old female admitted to [facility] 05/08/22 s/p hemicolectomy for Colon Cancer P: Jenise will return home when ready per MD, as soon as tomorrow. She will follow up with her PCP and plan of care as prescribed. Anticipate new home health orders for RN/PT, through [facility], Palliative will continue to follow, Pain Clinic follow up and referral completed for COA: Options and [facility]. Jenise will transport via private vehicle with family.
[2022-05-16] MEDS: Nystatin POWDER 60 GM JAR TP ×2 (09:07→14:05)
[2022-05-16] MEDS: buPROPion-CR 150 MG TABCR PO (09:08)
[2022-05-16] MEDS: Celecoxib 200 MG CAP PO (09:08)
[2022-05-16] MEDS: Acetaminophen 500 MG TAB 1000 MG PO ×2 (09:09→14:03)
[2022-05-16] MEDS: Gabapentin 300 MG CAP PO ×2 (09:10→14:04)
[2022-05-16] MEDS: Enoxaparin 40 MG/0.4 ML SYR SC (09:10)
[2022-05-16] MEDS: oxyCODONE 10 MG TAB 20 MG PO ×2 (09:11→14:04)
[2022-05-16] MEDS: Oxybutynin-CR 5 MG TABCR PO (09:11)
--- NOTE | 2022-05-16 10:45 | W.PM.DS.N ---
Date of service: 05/16/22 Time of Service: 10:46 DS: Diagnosis Discharge Diagnosis (1) Colon cancer: Status: Chronic Asessment and Plan: Follow-up in our office on May 24 at 8:30 AM Discharge Plan Disposition Patient Disposition: HOME Condition: Good Discharge Details Reason For Visit: s/p Hemicolectomy for Colon Cancer Admit Date/Time: 05/08/22 07:52 Admit Provider: Sarina Carrillo Attending Provider: Sarina Carrillo Primary Care Provider: Wilma Nance V Hospital Course Hospital Course: Shiloh is a 76-year-old woman who was diagnosed with a colon adenocarcinoma during colonoscopy. She followed up for hemicolectomy. She underwent that operation without any difficulty. Her postop course was complicated by some chronic pain. By May 15, she was tolerating a diet with bowel function, and her pain was better controlled. Home Meds and New Rx's Prescriptions: New nystatin 100,000 unit/gram cream 1 applic topical DAILY Qty: 30 0RF Rx Instructions: apply to affected areas once daily fentanyl 25 mcg/hr patch 72 hour 1 patch transdermal Q72H Qty: 10 0RF Rx Instructions: apply one patch, leave in place fr 72 hours, then repeat as needed for chronic pain lidocaine 5 % adhesive patch,medicated 1 patch topical DAILY Qty: 15 0RF Rx Instructions: leave on most painful area for up to 12 hrs, remove for 12 hours and repeat as needed albuterol sulfate 90 mcg/actuation HFA aerosol inhaler 1 puff inhalation ONCE Qty: 6.7 0RF Rx Instructions: use one puff as needed for shortness of breath associated with exercise Continued estradiol [Estrace] 0.01 % (0.1 mg/gram) cream 2 g VG twice weekly Qty: 1 12RF atenolol 25 mg tablet 12.5 mg PO HS oxycodone-acetaminophen [Percocet] 10-325 mg tablet 2 tab PO TID PRN Ozempic 0.25 mg or 0.5 mg(2 mg/1.5 mL) pen injector 0.25 mg subcut QWEEK Rx Instructions: for 4 doses multivitamin [Daily-Wayne] 1 EACH tablet 1 ea PO DAILY folic acid 1 MG tablet 1 mg PO DAILY celecoxib [Celebrex] 200 mg capsule 200 mg PO BID naloxone [Narcan] 4 mg/actuation spray,non-aerosol 4 mg [place] Q3M PRN Rx Instructions: spray 1 dose into ONE nostril; alternate nostrils w each dose until help arrives oxybutynin chloride 5 mg tablet extended release 24hr 5 mg PO DAILY Qty: 90 3RF levothyroxine 175 MCG tablet 175 mcg PO DIRECTED Label Comments: daily bupropion HCl 150 mg tablet sustained-release 12 hr 150 mg PO DAILY Label Comments: hasnt been taking all summer morphine 15 mg tablet extended release 15 mg PO BID Label Comments: TAKE 1 TABLET BY MOUTH TWICE DAILY losartan 100 mg tablet 1 tab PO DAILY Label Comments: TAKE 1 TABLET BY MOUTH EVERY DAY albuterol sulfate [ProAir HFA] 8.5 GM HFA aerosol inhaler 2 puff Inhalation DIRECTED PRN30 Days Qty: 0 0RF Label Comments: prior to exercise Discontinued bisacodyl [Dulcolax (bisacodyl)] 5 mg tablet,delayed release (DR/EC) 5 mg PO ONCE Qty: 8 0RF Rx Instructions: Take as directed for your colon surgery polyethylene glycol 3350 17 gram powder in packet 255 g PO DAILY Qty: 15 0RF Rx Instructions: Mix 255 gm in 64 oz of gatorade or juice. Drink as directed neomycin 500 mg tablet 500 mg PO ONCE Qty: 8 0RF Rx Instructions: Please take 4 tbs at 7 pm and 4 tabs at 11 pm the day before surgery metronidazole 500 mg tablet See Rx Instructions PO .COMPLEX Qty: 8 0RF Rx Instructions: Take 4 tab at 7 pm and 4 tabs at 11 pm the night before surgery PO; ondansetron 8 mg tablet,disintegrating 8 mg PO ONCE Qty: 3 0RF Rx Instructions: PLease take 1 tab 1 pm the day before surgery, 1 tab at 9 pm the day before surgery and 1 the morning of surgery ciprofloxacin HCl [Cipro] 500 mg tablet 500 mg PO .COMPLEX Qty: 1 0RF Rx Instructions: 500 mg orally x1 po at 9pm the night before surgery Folgard 1 EACH tablet 1 tab PO DAILY No Action (DME) Oxygen Tank See Rx Instructions .ROUTE .MEDSUPPLY Qty: 1 Rx Instructions: As directed,2L of oxygen bled into BiPAP. (DME) cane Device See Rx Instructions .ROUTE .MEDSUPPLY Qty: 1 0RF Rx Instructions: As directed acetaminophen [Tylenol Extra Strength] 500 mg Tablet 1,000 mg Discharge Instructions Instructions: Colorectal Cancer (DC), High Fiber Diet (DC) Referrals: Sarina Carrillo MD [ [facility] ST[facility]FF PHYSICIAN] - (05/24 at 8:30) Activity:: Activity as Tolerated Equipment/Supplies:: No Equipment Needed Diet:: As Tolerated Discharge Orders Discharge Orders: Discharge Order (Routine); Ordered 05/16/22 Ordered By: Asher Jennings DS: Summary Time Spent with Patient providing and/or coordinating discharge services: Greater than 30 minutes Status at Discharge Functional status at discharge: uses cane/walker Overall status at discharge: patient is progressing back to baseline Mental Status: mental status grossly normal Speech and Movement: speech and movement normal Mood: congruent mood Affect: normal affect Exam Const General: cooperative and comfortable Nutritional Appearance: obese Orientation: awake and oriented x3 Eyes General: appearance normal, both eyes and all related structures Conjunctivae: conjunctivae normal Sclera: sclerae normal Resp Effort & Inspection: normal respiratory effort and able to speak in complete sentences Auscultation: clear to auscultation bilaterally Cardio Jugular venous pressure: no JVD Rate: regular rate GI Inspection: non-distended Palpation: soft, no guarding, no hernias and nontender Auscultation: normal bowel sounds Other: Incision is clean, with only a small amount of ecchymosis. There is no erythema. Skin General skin exam: normal turgor Neuro General: patient alert, patient awake and patient oriented x3 Cognition: normal cognition Extrem Right lower extremity: no edema Left lower extremity: no edema Psych Mental Status: mental status grossly normal Speech and Movement: speech and movement normal Mood: congruent mood Affect: normal affect DS: Data Vitals/I&O Vitals and I&O: Vital Signs Temperature 97.5 F L 05/16/22 07:40 Temperature Source Tympanic 05/16/22 07:40 Pulse 66 05/16/22 07:40 Pulse Rhythm Regular 05/16/22 09:13 Pulse 71 05/11/22 14:01 Respiratory Rate 16 05/16/22 07:40 Respiratory Effort Non-Labored 05/16/22 00:11 Respiratory Depth Normal 05/16/22 09:13 Respiratory Pattern Normal 05/16/22 09:13 Blood Pressure 120/78 05/16/22 07:40 Blood Pressure Mean 76 05/11/22 14:01 Blood Pressure Position Sitting 05/11/22 07:15 Pulse Oximetry 97 05/16/22 07:40 Respiratory End-tidal CO2 33 05/08/22 15:00 Oxygen Delivery Method Cpap 05/16/22 07:40 Oxygen Flow Rate 2 05/16/22 05:10 Pain Level 3 05/16/22 07:40 Comment 05/14/22 22:49 Intake & Output 05/15/22 05/15/22 05/16/22 11:59 23:59 11:59 Intake Total 240 / 240 Output Total 400 / 1250 850 / 1250 1500 / 1500 Balance -160 / -1010 -850 / -1010 -1500 / -1500 Intake: Oral 240 / 240 Output: Urine 400 / 1250 850 / 1250 1500 / 1500 Other: Urine Color Yellow Yellow Yellow Urine Appearance Clear Clear Clear Urine Odor Normal Comment two voids per patient. Stool Size Moderate Stool Characteristics Soft Brown Voiding Methods Toilet Bedside Commode PFSH All Active Problems Full code status (Acute) Mixed stress and urge urinary incontinence (Acute) SUGEY on CPAP (Chronic) uses 2L O2 Peripheral neuropathy (Acute) Periodic limb movement disorder (Acute 10/23/18) Idiopathic sleep related nonobstructive alveolar hypoventilation (Acute) History of prediabetes (Acute) Hypothyroidism (Chronic) Mobitz II (Acute) Known to cardiology since 2011, medical management. Bradycardia following surgery (Acute) Severe obesity (Acute) Obstructive sleep apnea syndrome (Acute) Colon cancer (Chronic) Medical History Abnormal auditory perception (01/10/14) Acquired pes planus Acute bronchospasm Allergic rhinitis Anxiety 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 Asthma, moderate persistent BCC (basal cell carcinoma) Bilateral carpal tunnel syndrome Bilateral cataracts Body mass index (BMI) of 40.0-44.9 in adult Cerumen impaction (02/14/14) Cervicalgia Change in voice (01/10/14) Chronic pain Cigarette nicotine dependence CKD (chronic kidney disease) Colonic polyp Coordination problem COPD (chronic obstructive pulmonary disease) Degenerative disc disease, lumbar Diverticulosis DJD (degenerative joint disease) Dysphonia (02/14/14) Dyspnea Edema Fibromyalgia First degree AV block Foot pain Fusion of lumbosacral spine Gastroesophageal reflux disease (01/10/14) H/O urinary frequency Hamstring tendonitis HTN (hypertension) Hx of colonic polyps Iritis Knee pain, bilateral Left hip pain Leg wound, left Lumbar stenosis Major depression Myalgia Obesity Onychodystrophy Ovarian mass Recurrent UTI (01/30/17) Restless leg syndrome Rotator cuff syndrome Sacroiliac joint pain Sensory hearing loss, bilateral (02/14/14) Spinal stenosis Tobacco use Trigger finger Urgency incontinence (01/30/17) Visual acuity reduced Surgical History H/O spinal fusion L4-S1 History of carpal tunnel release of both wrists History of hip replacement History of knee replacement Hx of colonoscopy Hx of shoulder surgery Left Hx of total knee replacement Right distal ulnar fracture s/p ORIF DOS: 07/27/20 Family History Father Diabetes Son Diabetes Social History Smoking/Tobacco Use Status: Current every day Tobacco Type: cigarettes Smoking packs per day: 1 Smoking cigarettes per day: 20.0 Smoking risk assessment performed?: Yes Alcohol Intake: current Alcohol Intake frequency: 3 or more drinks per day Alcohol type: beer Drug use: Never Substance use type: does not use Details: alcohol: t-2, 3-4 beers Housing: house Number of Children: 9 Pets and animals: Yes Pets and animals: dog(s) and horse(s) Current gender identity: female What is your relationship status?: Panel score (0-1 are the most socially isolated patients): 0 What type of physical activity do you participate in: walking Seatbelt use: always Do you feel safe at home: Yes Do you feel safe in your relationship?: Yes Additional Social history: unable assess privately
--- NOTE | 2022-05-16 11:42 | RESPIRATORY ---
Patient has a ResMed [id number] VAuto that she used at night with 2L of Oxygen bled-in. Settings are:Max IPAP 20/ Min EPAP 9 PS 4. Patient has oxygen from the [facility] of [facility] [employer] store.
--- NOTE | 2022-05-16 13:42 | PDOC.CMDIS ---
- If Service Date Differs Date of service: 05/16/22 Time of Service: 13:42 LACE Index Scoring Tool - Questions: Length of Stay (in days): 7 - 13 Acuity (Admit via E.D.?): No Comorbidities: Chronic Pulmonary Disease, Any Tumor (HX of an ovarian mass), Liver or Renal Disease (CKD) E.D. Visits: 1 - Answers: Total Score: 11 Risk of Readmission: High Risk Care Management Discharge Reason for Hospitalization: s/p hemicolectomy for colon cancer Discharge Plan: Shiloh is discharged home via private vehicle with her friend. New RX's are transmitted to [facility]. Shiloh will follow up with community providers and discharge plan of care as prescribed. Shiloh will follow up with Surgical office on 05/24/22 as scheduled. No [facility] services are ordered at time of discharge. Per MD discharge note and CM discussion with Wilma from PT, Shiloh is progressing back to baseline. Patient/Family Education Needs: Review discharge instructions, limitations, medications and plan to follow up with community providers. Discuss ask me three and self care needs.
== END 2022-05-16 14:21 | disposition home or self-care (01) | DRG 330 ==
LOC: PDS 07:56 → MS 14:35 → ICU 15:47 → MS 05-11 17:06
PROVIDERS: Internal Medicine; Nurse Anesthetist, Certified Registered; Surgery; Admitting Provider Surgery; PCP Family Medicine; Visit Provider Surgery
PROC: 0DBL0ZZ Excision of Transverse Colon, Open Approach (ICD-10-PCS; CPT 44140; principal; 2022-05-08 11:00)
DX: C18.4 Malignant neoplasm of transverse colon (principal); K56.7 Ileus, unspecified; Z68.42 Body mass index [BMI] 45.0-49.9, adult; I44.1 Atrioventricular block, second degree; E66.01 Morbid (severe) obesity due to excess calories; G47.33 Obstructive sleep apnea (adult) (pediatric); F06.4 Anxiety disorder due to known physiological condition; J45.40 Moderate persistent asthma, uncomplicated; G89.29 Other chronic pain; F17.210 Nicotine dependence, cigarettes, uncomplicated; N18.9 Chronic kidney disease, unspecified; J44.9 Chronic obstructive pulmonary disease, unspecified; Z98.1 Arthrodesis status; K21.9 Gastro-esophageal reflux disease without esophagitis; I12.9 Hypertensive chronic kidney disease with stage 1 through stage 4 chronic kidney disease, or unspecified chronic kidney disease; E03.9 Hypothyroidism, unspecified; G62.9 Polyneuropathy, unspecified; G25.81 Restless legs syndrome; Z53.31 Laparoscopic surgical procedure converted to open procedure; M51.36 Other intervertebral disc degeneration, lumbar region; R73.03 Prediabetes; N39.46 Mixed incontinence; M48.061 Spinal stenosis, lumbar region without neurogenic claudication; I95.9 Hypotension, unspecified; R00.1 Bradycardia, unspecified
CPT/HCPCS: 44140; 36415; 80048; 84145; 87635; 87798; 94640; 97110; 97162; 97530; J1650; 71046; 82607; 82746; 83735; 83880; 84439; 84443; 84484; 85025; 85049; 86140; 86618; 88307; 88309; 93005; 93010; 94667; 99223; 99231; J0131; J0295; J1100; J2250; J2405; J2704; J3475; J3480; J3490; J7613

== ENCOUNTER → 2022-05-24 08:41 | Outpatient (BNVA) | payer MEDICARE, BC, SELFPAY | PROVIDERS: PCP Family Medicine; Referring Provider Family Medicine; Visit Provider Surgery | DX: C18.9 Malignant neoplasm of colon, unspecified (principal); Z90.49 Acquired absence of other specified parts of digestive tract ==

== ENCOUNTER → 2022-09-02 13:36 | Outpatient (BNVA) | payer MEDICARE, BC, SELFPAY | PROVIDERS: PCP Family Medicine; Referring Provider Family Medicine; Visit Provider Nurse Practitioner Gerontology | DX: Z87.440 Personal history of urinary (tract) infections (principal); B37.31 Acute candidiasis of vulva and vagina; N39.46 Mixed incontinence; E66.01 Morbid (severe) obesity due to excess calories | CPT/HCPCS: 51798; 99214 ==

== ENCOUNTER 2022-10-01 15:40 | Outpatient (REF) | payer MEDICARE, BC, SELFPAY ==
[2022-10-01 16:26] LABS: HCT 43.5 % (36.0-46.0); HGB 14.4 g/dL (11.2-15.7)
[2022-10-01 16:40] LABS: ALT 26 U/L (14-59); AST 25 U/L (15-37); Albumin 3.6 g/dL (3.4-5.0); Alkaline Phosphatase 82 U/L (46-116); Anion Gap 9.7 mmol/L (3-11); BUN 17 mg/dL (7-18); Bilirubin, Total 0.3 mg/dL (0.2-1.0); CO2 24.3 mmol/L (21.0-32.0); Calcium 9.7 mg/dL (8.5-10.1); Calculated LDL 105 mg/dL (<100); Chloride 107 mmol/L (98-107); Cholesterol 208 mg/dL (<200); Estimated GFR 57.31 (mL/min/1.73m2); Glucose 94 mg/dL (74-106); HDL Cholesterol 48 mg/dL (40-60); Magnesium 1.8 mg/dL (1.8-2.4); Potassium 4.8 mmol/L (3.5-5.1); Sodium 141 mmol/L (136-145); Total Protein 7.2 g/dL (6.4-8.2); Triglyceride 277 mg/dL (<150)
[2022-10-01 18:43] LABS: Hemoglobin A1C 5.5 % (<5.7)
[2022-10-04 11:23] LABS: TSH (W/Ref FT4) 1.18 uIU/mL (0.36-3.74)
== END 2022-10-01 15:41 | disposition home or self-care (01) ==
LOC: NCHCN 15:40
PROVIDERS: PCP Family Medicine; Visit Provider Family Medicine
DX: E03.9 Hypothyroidism, unspecified (principal); R73.03 Prediabetes; I10 Essential (primary) hypertension; G62.9 Polyneuropathy, unspecified
CPT/HCPCS: 80053; 80061; 83036; 83735; 84443; 85014; 85018

== ENCOUNTER 2022-10-23 01:24 | Outpatient (CLI) | payer MEDICARE, BC, SELFPAY ==
--- NOTE | 2022-10-23 | DI.MAMMO_ITS ---
Exam(s) MAMMO SCREENING EXAM: MAMMO SCREENING CLINICAL HISTORY: SCREENING MAMMO FOR BREAST CANCER Z12.31 TECHNIQUE: Mammograms were interpreted according to the usual protocol including computer analysis w avolution system, tomosynthesis and C-view imaging. COMPARISON: 2012 and 2015 FINDINGS: The breasts are composed of scattered fibroglandular densities, Breast Density category B. No suspicious masses or suspicious microcalcifications are seen. There has been no change in nodule in the lower inner quadrant of the left breast. A biopsy marker clip is noted in the left breast. No skin thickening or abnormal axillary lymph nodes are seen. There has been no significant change from prior exams. IMPRESSION: BI-RADS Cat 2 - Benign Findings Yearly screening mammography is recommended. Breast Density - Category B, scattered fibroglandular densities. A negative radiographic report should not delay biopsy if a dominant or clinically suspicious mass is present. Up to ten percent of cancers are not identified on mammography. A negative report may reinforce clinical impression. Adenosis and dense breasts may obscure an underlying neoplasm. False positive reports average 6 to 10%. Patient will receive a letter notifying them of these results.
== END 2022-10-23 01:44 ==
LOC: DI 01:24
PROVIDERS: PCP Family Medicine; Visit Provider Family Medicine
DX: Z12.31 Encounter for screening mammogram for malignant neoplasm of breast (principal); N60.82 Other benign mammary dysplasias of left breast
CPT/HCPCS: 77063; 77067

== ENCOUNTER 2022-10-28 03:38 | Outpatient (CLI) | payer MEDICARE, BC, SELFPAY ==
[2022-10-28 18:57] LABS: CEA 3.7 ng/mL (See Note)
== END 2022-10-28 03:39 | disposition home or self-care (01) ==
LOC: LOS 03:38
PROVIDERS: PCP Family Medicine; Visit Provider Internal Medicine Hematology & Oncology
DX: C18.7 Malignant neoplasm of sigmoid colon (principal)
CPT/HCPCS: 36415; 82378

== ENCOUNTER → 2023-01-08 13:49 | Outpatient (BNVA) | payer MEDICARE, BC, SELFPAY | PROVIDERS: PCP Family Medicine; Referring Provider Registered Nurse Maternal Newborn; Visit Provider Surgery | DX: R09.89 Other specified symptoms and signs involving the circulatory and respiratory systems (principal); K43.9 Ventral hernia without obstruction or gangrene; K21.9 Gastro-esophageal reflux disease without esophagitis; F17.210 Nicotine dependence, cigarettes, uncomplicated | CPT/HCPCS: 99213 ==

== ENCOUNTER → 2023-01-29 08:19 | Outpatient (BNVA) | payer MEDICARE, BC, SELFPAY | PROVIDERS: PCP Family Medicine; Visit Provider Psychiatry & Neurology Neurology | DX: M96.1 Postlaminectomy syndrome, not elsewhere classified (principal); G89.29 Other chronic pain; G62.9 Polyneuropathy, unspecified | CPT/HCPCS: 99215 ==

== ENCOUNTER 2023-02-05 15:01 | Outpatient (CLI) | payer MEDICARE, BC, SELFPAY ==
[2023-02-05 23:22] LABS: CEA 3.6 ng/mL (See Note)
== END 2023-02-05 15:02 | disposition home or self-care (01) ==
LOC: LBO 15:04
PROVIDERS: PCP Family Medicine; Visit Provider Internal Medicine Hematology & Oncology
DX: C18.7 Malignant neoplasm of sigmoid colon (principal)
CPT/HCPCS: 36415; 82378

== ENCOUNTER 2023-02-13 18:39 | Outpatient (REF) | payer MEDICARE, BC, SELFPAY ==
[2023-02-13 16:20] LABS: Anion Gap 6.7 mmol/L (3-11); BUN 21 mg/dL (7-18); CO2 27.3 mmol/L (21.0-32.0); CREATININE 1.1 mg/dL (0.55-1.02); Calcium 9.3 mg/dL (8.5-10.1); Chloride 106 mmol/L (98-107); Estimated GFR 51.11 (mL/min/1.73m2); Glucose 103 mg/dL (74-106); Potassium 4.8 mmol/L (3.5-5.1); Sodium 140 mmol/L (136-145)
== END 2023-02-13 18:40 | disposition home or self-care (01) ==
LOC: NCHCN 18:39
PROVIDERS: PCP Family Medicine; Visit Provider Family Medicine
DX: R10.9 Unspecified abdominal pain (principal)
CPT/HCPCS: 80048

== ENCOUNTER → 2023-03-06 01:02 | Outpatient (CLI) | payer MEDICARE, BC, SELFPAY ==
--- NOTE | 2023-03-06 | DI.DEXA_ITS ---
Exam(s) XR DEXA BONE DENSITY W/WO DENISE EXAM: XR DEXA BONE DENSITY W/WO DENISE CLINICAL HISTORY: POSTMENOPAUSAL, SCREENING, Z78.0 TECHNIQUE: COMPARISON: No exams were available for comparison FINDINGS: Lateral Spine Image: Unremarkable. No compression deformities identified. Right hip: Total T-Score: 0.5 Total Z-Score: 2.5 T- and Z-scores: Within normal limits. Lumbar Spine: L1 through L3 Total T-Score: 5.0 Total Z-Score: 7.6 T- and Z-scores: Within normal limits. IMPRESSION: No evidence of osteoporosis.
== END ==
PROVIDERS: PCP Family Medicine; Visit Provider Family Medicine
DX: Z78.0 Asymptomatic menopausal state (principal); Z13.820 Encounter for screening for osteoporosis
CPT/HCPCS: 77080

== ENCOUNTER → 2023-03-07 00:59 | Outpatient (CLI) | payer MEDICARE, BC, SELFPAY ==
--- NOTE | 2023-03-07 | DI.CT_ITS ---
Exam(s) CT ABDOMEN PELVIS W EXAM: CT ABDOMEN PELVIS W CLINICAL HISTORY: ABDOMINAL DISCOMFORT, R10.9, COLON CA, C18.9. TECHNIQUE: Imaging Protocol: Axial computed tomography images with coronal and sagittal reformatted images were created and reviewed CONTRAST MATERIAL: Intravenous: Omnipaque 350 Contrast volume:100 ml Oral: yes / COMPARISON: CT ABD PELVIS WITH CONTRAST from 03/13/2016 CT ABD PELVIS WO CONTRAST from 01/24/2017 CT,NM,TMT NM MPI REST STRESS GRP from 03/12/[address] CHEST/ABD/PEL W from 04/29/2022 FINDINGS: ABDOMEN: Lung Bases: Normal where visualized. Liver: Hepatic steatosis.. No measurable mass. Gallbladder and biliary tract: No radiodense calculus. Stable mild dilatation of the common bile ramon t and intrahepatic ducts. Pancreas: Normal density, no abnormal calcifications or inflammatory process. Spleen: Normal. Kidneys: Normal size, contour and axis. No radiodense stones or obstructive uropathy. Bilateral david l cysts. No suspicious masses seen. Adrenal glands: No masses seen. Abdominal Aorta: Abdominal portion non-dilated. Atherosclerotic changes. Soft tissues: Unremarkable. PELVIS: Bladder: No gross wall thickening. No calculi.No focal mass. Bowel: Severe diverticulosis. Sigmoid is redundant. Moderate to large quantity of stool. Anastomos is seen distal transverse colon. No obstruction. No bowel wall thickening. Appendix normal. Peritoneal cavity: No ascites, collection or mesenteric inflammatory response. Bones: Hip prosthesis creates artifact in the low pelvis which somewhat obscures visualization bladde r. Hardware lower lower spine lumbar spine. Severe degenerative changes of the lumbar spine. Reproductive organs: Within normal limits. Lymph nodes: Unremarkable. Impression: Severe colonic diverticulosis greatest in the sigmoid. No evidence of diverticulitis or obstruction. No evidence of mass or metastatic disease. Stable mild biliary dilatation. RADIATION DOSE DELIVERED: 1,831.1mGy.cm Total DLP DATA REPOSITORY: All CT scans at this facility are submitted to the National Radiology Data Registry (NRDR) Dose Index Registry (DIR) with the [employer] (ACR). RADIATION OPTIMIZATION: All CT scans at this facility use at least one of these dose optimization te chniques: automated exposure control; mA and/or kV adjustment per patient size (includes targeted exa ms where dose is matched to clinical indication); or iterative reconstruction.
[2023-03-07] MEDS: Barium Sulfate 2% W/V-Creamy Vanilla Smoothie 450 ML BTL 900 ML PO (12:54)
[2023-03-07] MEDS: Normal Saline - Diluent 50 ML VIAL IJ (14:09)
[2023-03-07] MEDS: Normal Saline Flush 10 ML SYR IVP (14:10)
[2023-03-07] MEDS: Omnipaque 350 MG/ML 500 ML BTL-Imaging package IJ (14:10)
== END ==
PROVIDERS: PCP Family Medicine; Visit Provider Family Medicine
DX: K57.30 Diverticulosis of large intestine without perforation or abscess without bleeding (principal)
CPT/HCPCS: 74177

== ENCOUNTER → 2023-03-10 13:16 | Outpatient (BNVA) | payer MEDICARE, BC, SELFPAY | PROVIDERS: PCP Family Medicine; Visit Provider Nurse Practitioner Gerontology | DX: N39.46 Mixed incontinence (principal); Z87.440 Personal history of urinary (tract) infections; E66.01 Morbid (severe) obesity due to excess calories | CPT/HCPCS: 51798; 99214 ==

== ENCOUNTER 2023-05-16 01:05 | Outpatient (CLI) | payer MEDICARE, BC, SELFPAY ==
[2023-05-16 10:20] LABS: Abs Immature Grans 0.04 10^3/uL (0.0-0.06); Absolute Basophil Count 0.03 10^3/uL (0.0-0.2); Absolute Eosinophil Count 0.34 10^3/uL (0.0-0.7); Absolute Monocyte Count 0.57 10^3/uL (0.1-0.8); Absolute Neutrophil Count 3.18 10^3/uL (1.2-6.7); Basophils % 0.5; Eosinophils % 5.2; HCT 39.4 % (36.0-46.0); HGB 12.8 g/dL (11.2-15.7); Immature Grans % 0.6; Lymphocytes % 36.6; MCH 31.4 pg (27.0-33.0); MCHC 32.5 % (32.0-36.0); MCV 97 fL (80-95); MPV 9.5 fL (8.0-11.0); Monocytes % 8.7; Neutrophils % 48.4; Platelet Count 191 10^3/uL (130-400); RBC 4.08 10^6/uL (3.93-5.22); RDW 13.1 % (11.7-14.6); RDW-SD 46.6 fL; WBC 6.56 10^3/uL (4.4-10.8)
[2023-05-16 10:39] LABS: ALT 31 U/L (14-59); AST 25 U/L (15-37); Albumin 3.6 g/dL (3.4-5.0); Alkaline Phosphatase 92 U/L (46-116); BUN 32 mg/dL (7-18); Bilirubin, Total 0.3 mg/dL (0.2-1.0); Calcium 9.4 mg/dL (8.5-10.1); Chloride 102 mmol/L (98-107); Estimated GFR 57.31 (mL/min/1.73m2); Glucose 109 mg/dL (74-106); Potassium 4.7 mmol/L (3.5-5.1); Sodium 137 mmol/L (136-145); Total Protein 7.3 g/dL (6.4-8.2)
[2023-05-16] MEDS: Omnipaque 350 MG/ML 100 ML BTL 70 ML IJ (11:00)
[2023-05-16] MEDS: Normal Saline - Diluent 50 ML VIAL IJ (11:01)
--- NOTE | 2023-05-16 11:20 | DI.CT_ITS ---
Exam(s) CT CHEST W EXAM: CT CHEST W CLINICAL HISTORY: NEOPLASM SIGMOID COLON, C18.7. TECHNIQUE: Multi planar reconstructions were performed. CONTRAST MATERIAL: Omnipaque 350; 75 cc COMPARISON: CT CT CHEST/ABD/PEL W from 04/29/2022 FINDINGS: CHEST: LUNGS: There are no infiltrates nor pleural effusions and there are no metastatic nor primary appeari ng neoplastic lung nodules. Mild thickening up peripheral interlobular septae noted probably indicat ing mild interstitial fibrosis. MEDIASTINUM: There is no hilar nor mediastinal adenopathy. CARDIAC: Heart size upper normal. No pericardial effusion. Caliber thoracic aorta is normal. No di ssection.Caliber of the thoracic aorta is within normal limits. VISUALIZED UPPER ABDOMEN:There are no significant adrenal masses. Bilateral benign renal cysts noted . Hepatic steatosis and hepatomegaly noted. Spleen size normal. CBD diameter is prominent. CBD an d pancreatic head only partially visualized. Either cyst or fat invagination into the pancreatic bod y measuring 11 by 9 mm. Pancreatic duct is not dilated. OSSEOUS: Left shoulder prosthesis. No fractures. No osseous lesions. IMPRESSION: 1. No evidence of significant lung nodules. No infiltrates nor pleural effusions. No intrathoracic adenopathy. 2. Slight thickening of peripheral interlobular septae. May indicate an element of mild interstitial fibrosis. 3. Pancreatic cyst versus invagination of fat partially visualized on this study at the level the manzo creatic body. Can be further studied with pancreatic protocol MRI. RADIATION DOSE DELIVERED: Total DLP DATA REPOSITORY: All CT scans at this facility are submitted to the National Radiology Data Registry (NRDR) Dose Index Registry (DIR) with the [employer] ([employer]CR). RADIATION OPTIMIZATION: All CT scans at this facility use at least one of these dose optimization te chniques: automated exposure control; mA and/or kV adjustment per patient size (includes targeted exa ms where dose is matched to clinical indication); or iterative reconstruction.
[2023-05-16 19:35] LABS: CEA 3.2 ng/mL (See Note)
== END 2023-05-16 01:25 ==
LOC: DI 01:06
PROVIDERS: PCP Family Medicine; Visit Provider Nurse Practitioner Family
DX: C18.7 Malignant neoplasm of sigmoid colon (principal); K86.2 Cyst of pancreas
CPT/HCPCS: 80053; 71260; 82378; 85025; J3490

== ENCOUNTER 2023-06-10 21:17 | Emergency (ER) | payer MEDICARE, BC, SELFPAY ==
--- NOTE | 2023-06-10 21:15 | DI.CT_ITS ---
Exam(s) CT HEAD CERVICAL SPINE WO EXAM: CT HEAD CERVICAL SPINE WO CLINICAL HISTORY: trauma. TECHNIQUE: Imaging Protocol: Axial computed tomography images with coronal and sagittal reformatted images were created and reviewed COMPARISON: No exams were available for comparison FINDINGS: BRAIN: There is left frontal forehead scalp hematoma probable laceration. There are no skull fractures nor fluid in the visualized paranasal sinuses. Nasal bone fractures tommy dent, age indeterminate There is no evidence of intracranial hemorrhage, mass effect, or shift of midline structures. There are no extra-axial fluid collections. The ventricles are not enlarged or shifted and there is no blo od within the ventricular system nor within the basal cisterns. CERVICAL SPINE: There is no evidence of fracture. There is multilevel chronic advanced degenerative disc disease and reversal of the normal curvature of the cervical spine. There is advanced disc space narrowing at C 4-5, C5-6, and C6-7 levels. There is some multilevel facet arthropathy but no facet malalignment. No ominous osseous lesions. IMPRESSION: No acute intracranial findings on this noninfused CT scan of the brain.Left frontal scalp hematoma gray praorbital region. Nasal bone fracture which may not be acute. No evidence of cervical spine fracture, malalignment, nor acute compromise of the cervical spinal can al. Multilevel chronic degenerative disc disease and multilevel facet arthropathy. RADIATION DOSE DELIVERED: Total DLP DATA REPOSITORY: All CT scans at this facility are submitted to the National Radiology Data Registry (NRDR) Dose Index Registry (DIR) with the [employer] (ACR). RADIATION OPTIMIZATION: All CT scans at this facility use at least one of these dose optimization te chniques: automated exposure control; mA and/or kV adjustment per patient size (includes targeted exa ms where dose is matched to clinical indication); or iterative reconstruction.
[2023-06-10 21:20] VITALS: BP 220/93; PULSE 54; RESP 16; TEMP 35.9; O2SAT 98
--- NOTE | 2023-06-10 21:25 | W.ED.GENAD ---
Discharge Plan Disposition Patient Disposition: Home Condition: Good Discharge Details Chief Complaint: HeadInjury Clinical Impression: Facial laceration, Head injury Primary Care Provider: Wilma Nance V ED Provider: Theo Wilson Home Meds and New Rx's Prescriptions: No Action estradiol [Estrace] 0.01 % (0.1 mg/gram) cream 2 g VG twice weekly Qty: 42.5 12RF oxybutynin chloride 5 mg tablet extended release 24hr 5 mg PO DAILY Qty: 90 3RF furosemide 20 mg tablet 20 mg PO DAILY PRN (Reason: edema) oxycodone-acetaminophen 10-325 mg tablet 2 tab PO Q8H PRN ketoconazole 2 % cream 1 applic topical DAILY 90 Days Qty: 60 0RF Rx Instructions: Apply to toenails once daily (DME) Oxygen Tank See Rx Instructions .ROUTE .MEDSUPPLY Qty: 1 Rx Instructions: As directed,2L of oxygen bled into BiPAP. oxycodone-acetaminophen [Percocet] 10-325 mg tablet 2 tab PO TID PRN atenolol 25 mg tablet 25 mg PO HS fluoxetine [Prozac] 20 mg PO benzonatate 100 mg capsule 100 mg PO TID PRN (Reason: cough) Qty: 14 0RF multivitamin [Daily-Wayne] 1 EACH tablet 1 ea PO DAILY celecoxib [Celebrex] 200 mg capsule 200 mg PO BID (DME) cane Device See Rx Instructions .ROUTE .MEDSUPPLY Qty: 1 0RF Rx Instructions: As directed naloxone [Narcan] 4 mg/actuation spray,non-aerosol 4 mg LAWRENCE Q3M PRN Rx Instructions: spray 1 dose into ONE nostril; alternate nostrils w each dose until help arrives cholecalciferol (vitamin D3) 25 mcg (1,000 unit) capsule 25 mcg PO DAILY losartan 100 mg tablet 100 mg PO DAILY Patient Comments: TAKE 1 TABLET BY MOUTH EVERY DAY cephalexin 500 mg capsule 2,000 mg PO .COMPLEX Rx Instructions: 2,000 mg orally before dental work; nitroglycerin 0.3 mg tablet, sublingual 0.3 mg sublingual Q5M PRN Rx Instructions: do not exceed 3 doses per episode cyclobenzaprine 10 mg tablet 10 mg PO TID PRN fluticasone propionate [Flonase Allergy Relief] 50 mcg/actuation spray,suspension 2 spray intranasal DAILY PRN Rx Instructions: administer into each nostril simvastatin 10 mg tablet 10 mg PO QPM folic acid 1 mg tablet 1 mg PO DAILY gabapentin 300 mg capsule 300 mg PO BID Rx Instructions: 300mg Qam and 600mg Qpm levothyroxine 175 MCG tablet 175 mcg PO DIRECTED Patient Comments: daily acetaminophen [Tylenol Extra Strength] 500 mg Tablet 1,000 mg PO DIRECTED morphine 15 mg tablet extended release 15 mg PO BID Patient Comments: TAKE 1 TABLET BY MOUTH TWICE DAILY albuterol sulfate [ProAir HFA] 8.5 GM HFA aerosol inhaler 2 puff Inhalation DIRECTED PRN30 Days Qty: 0 0RF Patient Comments: prior to exercise nystatin 100,000 unit/gram cream 1 applic topical DAILY Qty: 30 0RF Rx Instructions: apply to affected areas once daily fentanyl 25 mcg/hr patch 72 hour 1 patch transdermal Q72H Qty: 10 0RF Rx Instructions: apply one patch, leave in place fr 72 hours, then repeat as needed for chronic pain Discharge Instructions Instructions: Head Injury (ED), Facial Laceration (ED) Additional Instructions: You were seen in the emergency department after a fall. We repaired the laceration on your forehead with 9 sutures. Have these removed in 7 days. Keep the area clean and dry. Your CAT scan your head and neck was mostly unremarkable. You have some possible nasal bone fractures. If your nose looks crooked in 2 to 3 days after the swelling goes down you could follow-up with the ENT recommended below. Otherwise the nasal bone fractures will simply heal on their own. Return to the emergency department if you have any other concerns. Follow-up with your primary care doctor. Referrals: Wilma Nance MD [Primary Care Provider] - 2 weeks Alfonzo Coronel MD [ [facility] STAFF PHYSICIAN] - Return if symptoms worsen Medical Decision Making 77-year-old female presents after a fall. Good story for mechanical fall so no role for work-up for presyncope or medical causes of falls. Has a laceration on the forehead and will update her tetanus and repair this at bedside. Will get CT head and cervical spine to rule out hematoma or fracture. No other injuries found on examination. No role for other imaging. Will repair her forehead and await imaging and reevaluate. 1032pm re-eval CT head and cervical spine unremarkable other than possible nasal bone fractures. Given the bruising on her nose that I now see likely does represent nasal bone fractures. We will give her a referral to ENT if she has any lingering symptoms with her nose. Repaired the laceration at bedside. She feels better and is ambulatory here. Will discharge with return precautions. Medical Records Medical records reviewed: Yes I reviewed the patient's medical records. Imaging Data Radiologic Study: Attestation: I personally reviewed and interpreted this imaging study as follows: Imaging: CT Scan (Head and cervical spine) Radiologist's impression: CT head and cervical spine unremarkable other than likely nasal bone fractures HPI General Mode of arrival: ambulatory. Date/Time Provider Initiated Documentation: 06/10/23 21:19. Limitations to Documentation: no limitations. Information obtained by: patient. HPI Narrative: 77-year-old female with history of fibromyalgia and chronic low back pain presents after a fall. States she tripped over a leg of a table that she tripped over all the time. She fell forward and hit her head on the edge of a doorway. Did not pass out. Knew she had a cut on her forehead and came here. Not on any blood thinners. Denies any other injuries. She actually drove herself here. Related Data Home Medications Medication Instructions Recorded Confirmed levothyroxine 175 mcg tablet 175 mcg PO DIRECTED 09/17/14 04/30/23 multivitamin (Daily-Wayne tablet) 1 ea PO DAILY 08/15/17 04/30/23 cane #1 ea 02/24/20 04/30/23 celecoxib 200 mg capsule (Celebrex) 200 mg PO BID 02/24/20 04/30/23 naloxone 4 mg/actuation nasal 4 mg intranasal Q3M PRN 02/24/20 04/30/23 spray (Narcan) Oxygen #1 ea 02/15/21 04/30/23 oxycodone-acetaminophen 10 mg-325 2 tab PO TID PRN 09/04/21 04/30/23 mg tablet (Percocet) acetaminophen 500 mg tablet 1,000 mg PO DIRECTED 05/08/22 04/30/23 (Tylenol Extra Strength) morphine 15 mg tablet,extended 15 mg PO BID 05/09/22 04/30/23 release albuterol sulfate 90 mcg/actuation 2 puff inhalation DIRECTED PRN 05/16/22 04/30/23 aerosol inhaler (ProAir HFA) 30 days #0 grams fentanyl 25 mcg/hr transdermal 1 patch transdermal Q72H #10 ea 05/16/22 04/30/23 patch nystatin 100,000 unit/gram topical 1 applic topical DAILY #30 grams 05/16/22 04/30/23 cream cephalexin 500 mg capsule 2,000 mg PO .COMPLEX 08/19/22 04/30/23 cholecalciferol (vitamin D3) 25 25 mcg PO DAILY 08/19/22 04/30/23 mcg (1,000 unit) capsule losartan 100 mg tablet 100 mg PO DAILY 08/19/22 04/30/23 estradiol 0.01% (0.1 mg/gram) 2 g vaginal twice weekly #42.5 09/02/22 04/30/23 vaginal cream (Estrace) grams oxybutynin chloride 5 mg 5 mg PO DAILY #90 tabs 09/02/22 04/30/23 tablet,extended release 24 hr atenolol 25 mg tablet 25 mg PO HS 09/15/22 04/30/23 cyclobenzaprine 10 mg tablet 10 mg PO TID PRN 09/15/22 04/30/23 nitroglycerin 0.3 mg sublingual 0.3 mg sublingual Q5M PRN 09/15/22 04/30/23 tablet fluticasone propionate 50 2 spray intranasal DAILY PRN 12/26/22 04/30/23 mcg/actuation nasal spray,suspension (Flonase Allergy Relief) simvastatin 10 mg tablet 10 mg PO QPM 12/26/22 04/30/23 benzonatate 100 mg capsule 100 mg PO TID PRN cough #14 caps 02/26/23 04/30/23 fluoxetine [Prozac] 20 mg PO 04/13/23 04/30/23 folic acid 1 mg tablet 1 mg PO DAILY 04/13/23 04/30/23 furosemide 20 mg tablet 20 mg PO DAILY PRN edema 04/13/23 04/30/23 gabapentin 300 mg capsule 300 mg PO BID 04/13/23 04/30/23 oxycodone-acetaminophen 10 mg-325 2 tab PO Q8H PRN 04/13/23 04/30/23 mg tablet ketoconazole 2 % topical cream 1 applic topical DAILY 3 months 04/14/23 04/30/23 #60 grams Previous Rx's Medication Instructions Recorded cane #1 ea 02/24/20 albuterol sulfate 90 mcg/actuation 2 puff inhalation DIRECTED PRN 05/16/22 aerosol inhaler (ProAir HFA) 30 days #0 grams fentanyl 25 mcg/hr transdermal 1 patch transdermal Q72H #10 ea 05/16/22 patch nystatin 100,000 unit/gram topical 1 applic topical DAILY #30 grams 05/16/22 cream estradiol 0.01% (0.1 mg/gram) 2 g vaginal twice weekly #42.5 09/02/22 vaginal cream (Estrace) grams oxybutynin chloride 5 mg 5 mg PO DAILY #90 tabs 09/02/22 tablet,extended release 24 hr benzonatate 100 mg capsule 100 mg PO TID PRN cough #14 caps 02/26/23 ketoconazole 2 % topical cream 1 applic topical DAILY 3 months 04/14/23 #60 grams Allergies Allergy/AdvReac Type Severity Reaction Status Date / Time formoterol [From Dulera] Allergy Intermediate unknown Verified 04/30/23 11:49 mometasone furoate AdvReac Intermediate thrush Verified 04/30/23 11:49 [From Dulera] [email or web address] [From Myrbetriq] AdvReac Increased Verified 04/30/23 11:49 blood pressure doxycycline Allergy Severe Uncoded 04/30/23 11:49 General Stated Complaint: HeadInjury SACHI: 3 Review of Systems Constitutional Constitutional: Denies chills, Denies fever(s) and Denies headache(s) Eyes Eyes: Denies change in vision ENT Ears, Nose, Mouth, and Throat: Denies headache(s) and Denies odynophagia Cardiovascular Cardiovascular: Denies chest pain and Denies dyspnea Respiratory Respiratory: Denies dyspnea Gastrointestinal Gastrointestinal: Denies abdominal pain, Denies diarrhea, Denies nausea, Denies odynophagia and Denies vomiting Genitourinary Genitourinary: Denies dysuria Musculoskeletal Musculoskeletal: Denies myalgias Comments: Head injury with laceration to forehead Integumentary/Breasts Skin/Breast: Denies changing lesions Neurologic Neurologic: Denies behavioral changes and Denies headache(s) Psychiatric Psychiatric: Denies behavioral changes Endocrine Endocrine: Denies heat intolerance Hematologic/Lymphatic Hematologic/Lymphatic: Denies lymphadenopathy PFSH All Active Problems Head injury (Acute) Facial laceration (Acute) Mobitz II (Acute) Known to cardiology since 2011, medical management. 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) Bradycardia following surgery (Acute) Full code status (Acute) Mucinous adenocarcinoma of colon (Acute) Lumbar post-laminectomy syndrome (Acute) Lumbar post-laminectomy syndrome (Acute) Globus sensation (Acute) Psychological factors affecting medical condition (Acute) Ventral hernia (Acute) Pain disorder associated with psychological and physical factors (Acute) Panchal esophagus (Acute) Adjustment disorder (Chronic) Leg edema (Acute) Ataxia (Acute) Pain, joint, foot, right (Acute) Venous (peripheral) insufficiency (Acute) Smoker (Acute) Medical History Anemia Colon cancer partial coloectomy History of second degree heart block Low back pain Irregular heart rate Arthritis Lumbar spondylosis Ulnar nerve impingement Cervical spondylosis Cigarette nicotine dependence Obesity Asthma, moderate persistent BCC (basal cell carcinoma) Ovarian mass Body mass index (BMI) of 40.0-44.9 in adult Degenerative disc disease, lumbar Anxiety 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 Fusion of lumbosacral spine Left hip pain Sacroiliac joint pain Restless leg syndrome Knee pain, bilateral First degree AV block H/O urinary frequency Bilateral carpal tunnel syndrome Myalgia Visual acuity reduced Edema Onychodystrophy Abnormal auditory perception (01/10/14) Gastroesophageal reflux disease (01/10/14) Recurrent UTI (01/30/17) Sensory hearing loss, bilateral (02/14/14) Urgency incontinence (01/30/17) Colonic polyp HTN (hypertension) Allergic rhinitis Cervicalgia Tobacco use COPD (chronic obstructive pulmonary disease) Trigger finger Hamstring tendonitis Fibromyalgia Rotator cuff syndrome Lumbar stenosis Foot pain Diverticulosis Major depression Bilateral cataracts Surgical History History of partial colectomy Hx of breast surgery H/O hemicolectomy (~05/08/22) Hx of shoulder surgery Left H/O spinal fusion L4-S1 History of knee replacement History of hip replacement History of carpal tunnel release of both wrists Hx of total knee replacement Hx of colonoscopy Right distal ulnar fracture s/p ORIF DOS: 07/27/20 Family History Father Diabetes Hepatic disorder Son Diabetes Multiple sclerosis Daughter Hx of migraines Social History Smoking/Tobacco Use Status: Current every day Tobacco Type: cigarettes Smoking packs per day: 1 Smoking cigarettes per day: 20.0 Smoking risk assessment performed?: Yes Alcohol Intake: current Alcohol Intake frequency: 3 or more drinks per day Alcohol type: beer Details: DAILY Drug use: Never Substance use type: does not use Details: alcohol: t-2, 3-4 beers Housing: house Number of Children: 9 Pets and animals: Yes Pets and animals: dog(s) and horse(s) Current gender identity: female What is your relationship status?: Panel score (0-1 are the most socially isolated patients): 0 What type of physical activity do you participate in: walking Seatbelt use: always Do you feel safe at home: Yes Do you feel safe in your relationship?: Yes Exam Const General: cooperative Nutritional Appearance: average body habitus Orientation: alert, awake and oriented x3 HENMT Head: no palpable skull fracture Ears: external ears normal Mouth: moist mucous membranes Other: Laceration to the anterior forehead approximately 4 cm in length and linear over the left eyebrow. Some small amount of bleeding from the area. Easily controlled with direct pressure. Eyes Pupils: PERRL EOM: EOM intact bilaterally and No nystagmus Neck Neck: full ROM, nontender and no tracheal deviation Chest Chest: normal inspection of the chest, normal palpation of entire chest wall and no localized rib tenderness Resp Auscultation: clear to auscultation bilaterally Cardio Rate: regular rate Rhythm: regular rhythm GI Inspection: normal to inspection Palpation: soft, no guarding, not rigid and nontender Back/Spine/Pelvis Back: No no CVA tenderness Cervical Spine: No cervical spinal tenderness Thoracic/Lumbar Spine: thoracic and lumbar spine normal to inspection, No thoracic spinal tenderness and No lumbar spinal tenderness Skin General skin exam: no rashes or lesions noted Neuro General: patient alert, patient awake and patient oriented x3 Cranial Nerves: CN's II-XI intact bilaterally, PERRL and no nystagmus Cognition: normal cognition Motor: muscle tone normal throughout and strength 5/5 throughout Sensory Exam: no sensory deficits noted Extrem General: normal to inspection and full ROM Right upper extremity: normal to inspection and full ROM Left upper extremity: normal to inspection and full ROM Course Vital Signs Vital signs: Vital Signs Temperature 35.9 C L 06/10/23 21:20 Pulse 54 L 06/10/23 21:20 Respiratory Rate 16 06/10/23 21:20 Blood Pressure 220/93 H 06/10/23 21:20 Pulse Oximetry 98 06/10/23 21:20 Temperature 35.9 C L 06/10/23 21:20 Pulse 54 L 06/10/23 21:20 Respiratory Rate 16 06/10/23 21:20 Blood Pressure 220/93 H 06/10/23 21:20 Pulse Oximetry 98 06/10/23 21:20 Oxygen Delivery Method Room Air 06/10/23 21:20 Oxygen Flow Rate 0 06/10/23 21:20 Pain Level 2 06/10/23 21:20 Procedures Laceration left forehead: Site: other (left forehead) Side (If applicable): left Size (cm): 4 Description: linear Depth: simple, single layer Local Anesthetic: Lidocaine 2% and with Epi Amount of anesthesia used (mL): 8 Pre-repair: wound explored, irrigated extensively and deep structures intact Skin layer closed with: vicryl Size (cm): 4-0 Number of sutures: 9 Technique: simple, interrupted Technique: simple, interrupted
--- NOTE | 2023-06-10 22:12 | DI.VRAD_ITS ---
PROCEDURE INFORMATION: Exam: CT Head Without Contrast Exam date and time: 06/10/2023 9:53 PM Age: 77 years old Clinical indication: Injury or trauma; Fall; Blunt trauma (contusions or hematomas); Consciousness not specified TECHNIQUE: Imaging protocol: Computed tomography of the head without contrast. COMPARISON: MR CERVICAL SPINE WO 05/29/2021 12:28 PM FINDINGS: Brain: Mild volume loss No hemorrhage. Mild white matter disease. No mass effect. Cerebral ventricles: No ventriculomegaly. Paranasal sinuses: Visualized sinuses are unremarkable. No fluid levels. Mastoid air cells: Visualized mastoid air cells are well aerated. Bones/joints: Minimal nasal bone fractures of indeterminate age. Soft tissues: Unremarkable. IMPRESSION: No acute intracranial hemorrhage Age-indeterminate nasal bone fractures PROCEDURE INFORMATION: Exam: CT Cervical Spine Without Contrast Exam date and time: 06/10/2023 9:53 PM Age: 77 years old Clinical indication: Injury or trauma; Fall; Blunt trauma (contusions or hematomas); Consciousness not specified TECHNIQUE: Imaging protocol: Computed tomography of the cervical spine without contrast. COMPARISON: MR CERVICAL SPINE WO 05/29/2021 12:28 PM FINDINGS: Bones/joints: No acute fracture. Loss of cervical lordosis is presumably on a degenerative basis. Multilevel central canal and foraminal stenosis most pronounced at C5-C6 Lungs: Lung apices are grossly clear. Soft tissues: Unremarkable. Left shoulder prosthesis IMPRESSION: No acute cervical fracture Dictated and Authenticated by: Kevin Kebede MD. Ordering:JULIANA Venegas MD
[2023-06-10 22:55] VITALS: BP 152/78; PULSE 78; RESP 16; O2SAT 99
== END 2023-06-10 22:56 | disposition home or self-care (01) ==
PROVIDERS: Emergency Provider Student in an Organized Health Care Education/Training Program; PCP Family Medicine
DX: S01.81XA Laceration without foreign body of other part of head, initial encounter; W01.190A Fall on same level from slipping, tripping and stumbling with subsequent striking against furniture, initial encounter; M79.7 Fibromyalgia; M54.50 Low back pain, unspecified; G89.29 Other chronic pain; S00.33XA Contusion of nose, initial encounter; Z72.0 Tobacco use; Z79.899 Other long term (current) drug therapy; Z88.8 Allergy status to other drugs, medicaments and biological substances; Z88.1 Allergy status to other antibiotic agents
CPT/HCPCS: 12013; 90471; 99284; 70450; 72125

== ENCOUNTER 2023-06-13 20:40 | Outpatient (REF) | payer MEDICARE, BC, SELFPAY ==
--- OUTSIDE RECORDS SUMMARY | 2023-06-13 20:48 | XMS_ITS | CCD ---
Author Name Unknown Address [address] [place] [address] [id number] Organization Unknown Address [address] [place] [address] [phone] Care Team Providers Care Inventory Specialist Name Role Phone HARRY IVERSON Attending Physician [phone] Vital Signs Unknown or Not Available. Allergies Unknown or Not Available. Procedures Unknown or Not Available. History of Immunizations Unknown or Not Available. Problems Unknown or Not Available. Results Unknown or Not Available. Active Medications Unknown or Not Available. Medications Administered During Visit Unknown or Not Available. Encounters Encounter Diagnosis Diagnosis Code Start Date Spondylolisthesis, cervical region [id number] 07/03/2021 Social History Smoking Status Code Start Date End Date Current every day smoker [id number] Patient Decision Aids Unknown or Not Available. Discharge Instructions You were admitted to [facility] on 07/03/2021 11:47 with a principal diagnosis of Spondylolisthesis, cervical region You were discharged from [facility] on 07/03/2021 11:47 Should you have any questions prior to discharge, please contact a member of your healthcare team. If you have left the hospital and have any questions, please contact your primary care physician. Chief Complaint and Reason For Visit Unknown or Not Available. Function Status Unknown or Not Available. Plan of Care Unknown or Not Available. Referral/Transition of Care Unknown or Not Available.
[2023-06-13 21:04] LABS: Anion Gap 8.7 mmol/L (3-11); BUN 26 mg/dL (7-18); CO2 24.3 mmol/L (21.0-32.0); CREATININE 1.1 mg/dL (0.55-1.02); Calcium 9.5 mg/dL (8.5-10.1); Chloride 102 mmol/L (98-107); Estimated GFR 51.11 (mL/min/1.73m2); Glucose 98 mg/dL (74-106); Sodium 135 mmol/L (136-145)
== END 2023-06-13 20:41 | disposition home or self-care (01) ==
LOC: NCHCN 20:40
PROVIDERS: PCP Family Medicine; Visit Provider Family Medicine
DX: I10 Essential (primary) hypertension (principal)
CPT/HCPCS: 80048

== ENCOUNTER → 2023-06-26 14:33 | Outpatient (BNVA) | payer MEDICARE, BC, SELFPAY | PROVIDERS: PCP Family Medicine; Referring Provider Family Medicine; Visit Provider Physical Therapy Assistant | DX: Z12.11 Encounter for screening for malignant neoplasm of colon (principal); C18.9 Malignant neoplasm of colon, unspecified ==

== ENCOUNTER → 2023-07-10 00:57 | Outpatient (CLI) | payer MEDICARE, BC, SELFPAY ==
--- NOTE | 2023-07-10 | DI.MRI_ITS ---
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 CHANGE IN PANCREATIC CYST TECHNIQUE: Multiplanar multisequence MRI of the Abdomen was performed. CONTRAST MATERIAL: IV Contrast: 20 mL of Dotarem contrast administered. COMPARISON: CT ABD PELVIS WITH CONTRAST from 03/13/2016 CT ABD PELVIS WO CONTRAST from 01/24/[address] CHEST W from 05/16/2023 FINDINGS: Liver: No suspicious masses are seen. Pancreas: Unremarkable. No pancreatic mass or pancreatic ductal dilatation. There is a 1 cm lesion i n the pancreatic body near the junction with the tail which follows fat on all pulse sequences and sh ows no enhancement. It corresponds to the finding on the CT scan from 05/16/2023. No pancreatic mas s is seen. Gallbladder and Bile Ducts: Cholelithiasis. No pericholecystic fluid or gallbladder wall thickening. No choledocholithiasis. The common duct measures 1.4 cm. Adrenals: Unremarkable. Kidneys: There are bilateral simple renal cysts. The largest is in the left kidney and measures 3.5 x 3.2 cm. No follow-up is recommended. No evidence of obstructive uropathy. Spleen: Unremarkable. Bowel: There is diverticulosis seen in the colon. No findings of acute diverticulitis. Aorta: Unremarkable. Soft Tissues: Unremarkable. Bone: Artifact from the patient's left hip replacement and lumbar spine surgery are noted. Degenerat kate changes are seen throughout the lumbar spine. Lymph Nodes: Unremarkable. IMPRESSION: 1. 1 cm focus of fat signal intensity near the junction of the body and tail of the pancreas. This l ikely reflects normal fat. This is been seen on present CT examinations dating back to 2016. 2. No evidence of a suspicious pancreatic mass. 3. Cholelithiasis with stable extrahepatic biliary ductal dilatation. No evidence of choledocholithi asis. 4. Simple bilateral renal cysts. No follow-up is recommended. DATA REPOSITORY:
--- OUTSIDE RECORDS SUMMARY | 2023-07-10 00:58 | XMS_ITS | CCD ---
Author Name Unknown Address [address] [place] [address] [id number] Organization Unknown Address [address] [place] [address] [phone] Care Team Providers Care Cut Press Operator Name Role Phone RISHABH MERCEDES Attending Physician [phone] Vital Signs Unknown or Not Available. Allergies Unknown or Not Available. Procedures Unknown or Not Available. History of Immunizations Unknown or Not Available. Problems Unknown or Not Available. Results Unknown or Not Available. Active Medications Unknown or Not Available. Medications Administered During Visit Unknown or Not Available. Encounters Encounter Diagnosis Diagnosis Code Start Date Other abnormalities of gait and mobility [id number] 01/02/2022 Social History Smoking Status Code Start Date End Date Current every day smoker [id number] Patient Decision Aids Unknown or Not Available. Discharge Instructions You were admitted to [facility] on 01/02/2022 10:19 with a principal diagnosis of Other abnormalities of gait and mobility You were discharged from [facility] on 03/06/2022 11:10 Should you have any questions prior to [...]
--- OUTSIDE RECORDS SUMMARY | 2023-07-10 00:58 | XMS_ITS | CCD ---
Author Name Unknown Address [address] [place] [address] [phone] Organization Unknown Address [address] [place] [address] [id number] Care Team Providers Care [employer] Name Role Phone HARRY IVERSON Attending Physician [phone] Vital Signs Unknown or Not Available. [...] Date End Date Current every day smoker [id number] Patient Decision Aids Unknown or Not Available. Discharge Instructions You were admitted to [facility] on 07/03/2021 11:47 with a principal diagnosis of Spondylolisthesis, cervical region You were discharged from [facility] on 07/03/2021 11:47 Should you have [...]
[2023-07-10] MEDS: Gadoterate meglumine 20 ML VIAL IVP (11:14)
[2023-07-10] MEDS: Normal Saline - Diluent 50 ML VIAL 25 ML IJ (11:14)
== END ==
PROVIDERS: PCP Family Medicine; Visit Provider Nurse Practitioner Family
DX: K80.00 Calculus of gallbladder with acute cholecystitis without obstruction (principal); N28.1 Cyst of kidney, acquired
CPT/HCPCS: 74183

== ENCOUNTER → 2023-08-25 08:48 | Outpatient (BNVA) | payer MEDICARE, BC, SELFPAY | PROVIDERS: PCP Family Medicine; Referring Provider Family Medicine; Visit Provider Psychiatry & Neurology Neurology | DX: R27.0 Ataxia, unspecified (principal); M96.1 Postlaminectomy syndrome, not elsewhere classified; G89.29 Other chronic pain; G62.9 Polyneuropathy, unspecified | CPT/HCPCS: 99215 ==

== ENCOUNTER → 2023-09-01 13:16 | Outpatient (BNVA) | payer MEDICARE, BC, SELFPAY | PROVIDERS: PCP Family Medicine; Referring Provider Family Medicine; Visit Provider Podiatrist | DX: G47.61 Periodic limb movement disorder; G25.81 Restless legs syndrome; Z72.0 Tobacco use; L60.3 Nail dystrophy; M25.571 Pain in right ankle and joints of right foot; I87.2 Venous insufficiency (chronic) (peripheral); M25.572 Pain in left ankle and joints of left foot | CPT/HCPCS: 11721 ==

== ENCOUNTER → 2023-09-10 11:43 | Outpatient (BNVA) | payer MEDICARE, BC, SELFPAY | PROVIDERS: PCP Family Medicine; Referring Provider Family Medicine; Visit Provider Surgery | DX: K21.9 Gastro-esophageal reflux disease without esophagitis (principal); Z12.11 Encounter for screening for malignant neoplasm of colon | CPT/HCPCS: 99213 ==

== ENCOUNTER → 2023-09-15 14:27 | Outpatient (BNVA) | payer MEDICARE, BC, SELFPAY | PROVIDERS: PCP Family Medicine; Visit Provider Nurse Practitioner Gerontology | DX: N39.46 Mixed incontinence (principal); E66.01 Morbid (severe) obesity due to excess calories; Z87.440 Personal history of urinary (tract) infections | CPT/HCPCS: 51798; 99213 ==

== ENCOUNTER 2023-09-16 14:41 | Emergency (ER) | payer MEDICARE, BC, SELFPAY ==
[2023-09-16] VITALS (62 sets, daily range): BP systolic 161–199; BP diastolic 54–75; PULSE 64–77; RESP 5–25; TEMP 36.6; O2SAT 88–100
--- OUTSIDE RECORDS SUMMARY | 2023-09-16 14:44 | XMS_ITS | CCD ---
Author Name Unknown Address [address] [place] [address] [phone] Organization Unknown Address [address] [place] [address] [phone] Care Team Providers Care Towel Distributor Name Role Phone RISHABH MERCEDES Attending Physician [phone] Vital Signs Unknown or Not Available. Allergies [...] Date End Date Current every day smoker [id number] Patient Decision Aids Unknown or Not Available. Discharge Instructions You were admitted to [facility] on 01/02/2022 10:19 with a principal diagnosis of Other abnormalities of gait and mobility You were discharged from [facility] on 03/06/2022 11:10 Should you have [...]
--- OUTSIDE RECORDS SUMMARY | 2023-09-16 14:44 | XMS_ITS | CCD ---
Author Name Unknown Address [address] [place] [address] [phone] Organization Unknown Address [address] [place] [address] [phone] Care Team Providers Care Rn Unit Manager Name Role Phone HARRY IVERSON Attending Physician [phone] Vital Signs Unknown or Not Available. [...] Date End Date Current every day smoker [id number] Patient Decision Aids Unknown or Not Available. Discharge Instructions You were admitted to [facility] on 07/03/2021 11:47 with a principal diagnosis of Spondylolisthesis, cervical region You were discharged from [facility] on 07/03/2021 11:47 Should you have any [...]
--- NOTE | 2023-09-16 15:00 | DI.CT_ITS ---
Exam(s) CT CHEST PE CTA EXAM: CT CHEST PE CTA CLINICAL HISTORY: shortness of breath, chest pain. TECHNIQUE: Imaging Protocol: Axial CT angiography was performed with multi-slice acquisition and mu lti-planar and/or 3D reconstructions. CONTRAST MATERIAL: Intravenous: Omnipaque 350 contrast volume:100 mL COMPARISON: CT CT ABDOMEN PELVIS W from 03/07/[address] CHEST W from 05/16/[address] HEAD CERVICAL SPINE WO from 06/10/2023 FINDINGS: Tracheobronchial tree: Patent where visualized. Pulmonary parenchyma: Mild interstitial disease which is likely chronic. No focal consolidating infi ltrates are seen. No pulmonary nodules are present. Pulmonary Arteries: No evidence of filling defect to suggest pulmonary emboli. Mediastinum and Lesly: No dominant adenopathy or fluid collection. The esophagus is unremarkable. Visualized thyroid gland: Unremarkable. Pleura: No effusion or pneumothorax. Heart: Cardiomegaly. Coronary artery calcifications are present. No pericardial effusion. Aorta: Thoracic aorta non-dilated. No evidence of dissection. Atherosclerotic calcifications. Upper abdomen: Renal cysts. No follow-up is recommended. Soft tissues: Unremarkable. Bones: Within normal limits for the patient's age.Left shoulder replacement. Degenerative changes se en in the right shoulder. Subacute right 11th rib fracture. Old healed left rib fractures. IMPRESSION: 1. No evidence of pulmonary embolism, thoracic aortic dissection or aneurysm. 2. No acute pulmonary process. RADIATION DOSE DELIVERED: 726.41mGy.cm Total DLP DATA REPOSITORY: All CT scans at this facility are submitted to the National Radiology Data Registry (NRDR) Dose Index Registry (DIR) with the [employer] (A[employer]). RADIATION OPTIMIZATION: All CT scans at this facility use at least one of these dose optimization te chniques: automated exposure control; mA and/or kV adjustment per patient size (includes targeted exa ms where dose is matched to clinical indication); or iterative reconstruction.
--- NOTE | 2023-09-16 15:00 | RT.EKG_ITS ---
APPROVED REPORT Exam: Resting ECG Reason for Exam: weakness, chest pain Patient Location: E HR:63 bpm ECG Measurements Heart Rate 63 AXIS IN 87 P 0 QRSd 81 QRS 37 QT 395 T 63 QTc 404 Conclusion Sinus rhythm...normal P axis, V-rate 60- 99 Nonspecific T abnrm, anterolateral leads...T <-0.10mV, I aVL V2-V6
--- NOTE | 2023-09-16 15:20 | W.ED.GENAD ---
HPI <SEJAL Mendez - Last Filed: 09/17/23 10:57> General Date/Time Provider Initiated Documentation: 09/16/23 14:50. HPI Narrative: This 78-year-old female presents with shortness of breath and chest pain around her rib cage for the past week. She states she has had some shortness of breath with exertion. She has had some postnasal drip as well. She is a daily smoker. Denies similar symptoms in the past. Denies exertional chest pain, however patient states she has not really been able to exert herself. Denies any weight gain, calf pain or swelling. Denies recent surgery, flights, long drives. Denies orthopnea. States that she is never formally been diagnosed with COPD. She does use CPAP. Denies fever or chills, denies known sick contacts. Denies prior history of coagulopathy. Related Data Home Medications Medication Instructions Recorded Confirmed levothyroxine 175 mcg tablet 175 mcg PO DIRECTED 09/17/14 09/16/23 multivitamin (Daily-Wayne tablet) 1 ea PO DAILY 08/15/17 09/16/23 cane #1 ea 02/24/20 09/10/23 naloxone 4 mg/actuation nasal 4 mg intranasal Q3M PRN 02/24/20 09/16/23 spray (Narcan) Oxygen #1 ea 02/15/21 09/10/23 oxycodone-acetaminophen 10 mg-325 2 tab PO TID PRN 09/04/21 09/16/23 mg tablet (Percocet) acetaminophen 500 mg tablet 1,000 mg PO DIRECTED 05/08/22 09/16/23 (Tylenol Extra Strength) morphine 15 mg tablet,extended 15 mg PO BID 05/09/22 09/16/23 release albuterol sulfate 90 mcg/actuation 2 puff inhalation DIRECTED PRN 05/16/22 09/16/23 aerosol inhaler (ProAir HFA) 30 days #0 grams fentanyl 25 mcg/hr transdermal 1 patch transdermal Q72H #10 ea 05/16/22 09/16/23 patch nystatin 100,000 unit/gram topical 1 applic topical DAILY #30 grams 05/16/22 09/16/23 cream cephalexin 500 mg capsule 2,000 mg PO .COMPLEX 01/23/23 02/20/24 losartan 100 mg tablet 100 mg PO DAILY 08/19/22 09/16/23 estradiol 0.01% (0.1 mg/gram) 2 g vaginal twice weekly #42.5 09/02/22 09/16/23 vaginal cream (Estrace) grams atenolol 25 mg tablet 25 mg PO HS 09/15/22 09/16/23 cyclobenzaprine 10 mg tablet 10 mg PO TID PRN 09/15/22 09/16/23 nitroglycerin 0.3 mg sublingual 0.3 mg sublingual Q5M PRN 09/15/22 09/16/23 tablet fluticasone propionate 50 2 spray intranasal DAILY PRN 12/26/22 09/16/23 mcg/actuation nasal spray,suspension (Flonase Allergy Relief) simvastatin 10 mg tablet 10 mg PO QPM 12/26/22 09/16/23 fluoxetine 20 mg PO DAILY 04/13/23 09/16/23 folic acid 1 mg tablet 1 mg PO DAILY 04/13/23 09/16/23 oxybutynin chloride 5 mg 5 mg PO DAILY #90 tabs 08/12/23 09/16/23 tablet,extended release 24 hr cholecalciferol (vitamin D3) 50 50 mcg PO DAILY 08/19/23 09/16/23 mcg (2,000 unit) capsule fluorouracil 5 % topical cream 1 applic topical BID 08/19/23 09/16/23 ketoconazole 2 % topical cream 1 applic topical DAILY 08/19/23 09/10/23 bisacodyl 5 mg tablet,delayed 5 mg PO ONCE colonscopy bowel prep 09/10/23 09/16/23 release (Dulcolax (bisacodyl)) #4 tabs polyethylene glycol 3350 17 238 g PO ONCE colonoscopy prep 09/10/23 09/16/23 gram/dose oral powder #238 grams doxycycline hyclate 100 mg capsule 100 mg PO BID #14 caps 09/17/23 prednisone 20 mg tablet 40 mg (2 x 20 mg) PO ONCE #10 tabs 09/17/23 tiotropium bromide 2.5 2 inh inhalation QAM #4 grams 09/17/23 mcg/actuation mist for inhalation Previous Rx's Medication Instructions Recorded cane #1 ea 02/24/20 albuterol sulfate 90 mcg/actuation 2 puff inhalation DIRECTED PRN 05/16/22 aerosol inhaler (ProAir HFA) 30 days #0 grams fentanyl 25 mcg/hr transdermal 1 patch transdermal Q72H #10 ea 05/16/22 patch nystatin 100,000 unit/gram topical 1 applic topical DAILY #30 grams 05/16/22 cream estradiol 0.01% (0.1 mg/gram) 2 g vaginal twice weekly #42.5 09/02/22 vaginal cream (Estrace) grams oxybutynin chloride 5 mg 5 mg PO DAILY #90 tabs 08/12/23 tablet,extended release 24 hr bisacodyl 5 mg tablet,delayed 5 mg PO ONCE colonscopy bowel prep 09/10/23 release (Dulcolax (bisacodyl)) #4 tabs polyethylene glycol 3350 17 238 g PO ONCE colonoscopy prep 09/10/23 gram/dose oral powder #238 grams doxycycline hyclate 100 mg capsule 100 mg PO BID #14 caps 09/17/23 prednisone 20 mg tablet 40 mg (2 x 20 mg) PO ONCE #10 tabs 09/17/23 tiotropium bromide 2.5 2 inh inhalation QAM #4 grams 09/17/23 mcg/actuation mist for inhalation Allergies Allergy/AdvReac Type Severity Reaction Status Date / Time formoterol [From Dulera] Allergy Intermediate unknown Verified 09/16/23 14:46 mometasone furoate AdvReac Intermediate thrush Verified 09/16/23 14:46 [From Dulera] [email or web address] [From Myrbetriq] AdvReac Increased Verified 09/16/23 14:46 blood pressure doxycycline Allergy Severe Nausea Uncoded 09/16/23 14:46 General Stated Complaint: RespSymp SACHI: 3 Course <SEJAL Mendez - Last Filed: 09/17/23 10:57> Vital Signs Vital signs: Vital Signs Temperature 36.6 C 09/16/23 14:49 Pulse 69 09/16/23 14:49 Respiratory Rate 16 09/16/23 14:49 Blood Pressure 194/73 H 09/16/23 14:49 Pulse Oximetry 96 09/16/23 14:49 Temperature 36.6 C 09/16/23 14:49 Temperature Source Temporal Artery Scan 09/16/23 14:49 Pulse 69 09/16/23 14:49 Respiratory Rate 16 09/16/23 14:49 Respiratory Effort Short of Breath 02/20/24 15:02 Respiratory Depth Normal 09/16/23 15:02 Blood Pressure 194/73 H 09/16/23 14:49 Blood Pressure Position Sitting 09/16/23 14:49 Pulse Oximetry 96 09/16/23 14:49 Oxygen Delivery Method Room Air 09/16/23 14:49 Oxygen Flow Rate 0 09/16/23 14:49 Pain Level 2 09/16/23 14:49 Medical Decision Making <SEJAL Mendez - Last Filed: 09/17/23 10:57> 78-year-old female, no acute distress, lungs are diminished bilaterally with wheezing, no reproducible abdominal discomfort No respiratory distress, no hypoxia Patient has chest pain, will order 2 troponins and with shortness of breath CHF evaluation with BMP and CTA chest for further evaluation for pulmonary embolism Will order DuoNeb, Solu-Medrol, I do wonder if there is a COPD component to patient's complaints Will order diagnostic blood work as well place IV Patient does endorse history of heart block although she does not have a pacemaker and she is in a suspected first-degree block on assessment care transitioned to [facility] pending cta, labs, neb, steroid Quality:SDOH Health Related Social Needs: No Data to Display <Tiesha Hart NP - Last Filed: 09/16/23 20:06> 78-year-old female, no acute distress, lungs are diminished bilaterally with wheezing, no reproducible abdominal discomfort No respiratory distress, no hypoxia Patient has chest pain, will order 2 troponins and with shortness of breath CHF evaluation with BMP and CTA chest for further evaluation for pulmonary embolism Will order DuoNeb, Solu-Medrol, I do wonder if there is a COPD component to patient's complaints Will order diagnostic blood work as well place IV Patient does endorse history of heart block although she does not have a pacemaker and she is in a suspected first-degree block on assessment care transitioned to [facility] pending cta, labs, neb, steroid 1613: Care assumed from provider (SEJAL Mendez) Please see their initial HPI, PE, and documentation. Discussed patient details and case and pending workup and disposition. Patient is hemodynamically stable, and alert and oriented. At the time of signout awaiting CTA, reevaluation after nebulizers. 1727: On patient re-evaluation, she reports being able to breath better, lungs are more clear to auscultation, awaiting second troponin. Solumedrol ordered, will plan to give albuterol inhaler to go home with. Suspect COPD exacerbation. 185: Repeat Trop WNL, O2 sat at this time is 95 % RA will send home with Albuterol inhaler. Patient discharged home with COPD exacerbation. This text was generated using Xirrusation system, please disregard any oddities of phrase or misspellings. Medical Records Medical records reviewed: Yes I reviewed the patient's medical records. Imaging Data Radiologic Study: Imaging: CT Scan Radiologist's impression: FINDINGS: Tracheobronchial tree: Patent where visualized. Pulmonary parenchyma: Mild interstitial disease which is likely chronic. No focal consolidating infiltrates are seen. No pulmonary nodules are present. Pulmonary Arteries: No evidence of filling defect to suggest pulmonary emboli. Mediastinum and Lesly: No dominant adenopathy or fluid collection. The esophagus is unremarkable. Visualized thyroid gland: Unremarkable. Pleura: No effusion or pneumothorax. Heart: Cardiomegaly. Coronary artery calcifications are present. No pericardial effusion. Aorta: Thoracic aorta non-dilated. No evidence of dissection. Atherosclerotic calcifications. Upper abdomen: Renal cysts. No follow-up is recommended. Soft tissues: Unremarkable. Bones: Within normal limits for the patient's age.Left shoulder replacement. Degenerative changes seen in the right shoulder. Subacute right 11th rib fracture. Old healed left rib fractures. IMPRESSION: 1. No evidence of pulmonary embolism, thoracic aortic dissection or aneurysm. 2. No acute pulmonary process. Lab Data Lab results reviewed: Yes I reviewed the patient's lab results. Labs: Laboratory Tests Range/Units 09/16/23 09/16/23 09/16/23 15:11 15:15 15:20 WBC (4.4-10.8) 10^3/uL 5.81 RBC (3.93-5.22) 10^6/uL 4.20 Hgb (11.2-15.7) g/dL 13.3 Hct (36.0-46.0) % 40.9 MCV (80-95) fL 97 H MCH (27.0-33.0) pg 31.7 MCHC (32.0-36.0) % 32.5 RDW (11.7-14.6) % 12.7 Plt Count (130-400) 10^3/uL 214 MPV (8.0-11.0) fL 9.4 Immature Gran % 0.5 Neutrophils % 55.1 Lymphocytes % 33.6 Monocytes % 7.9 Eosinophils % 2.4 Basophils % 0.5 Nucleated RBC % (0.0-0.3) % 0.0 Absolute Neutrophils (1.2-6.7) 10^3/uL 3.20 Absolute Lymphocytes (1.2-3.4) 10^3/uL 1.95 Absolute Monocytes (0.1-0.8) 10^3/uL 0.46 Absolute Eosinophils (0.0-0.7) 10^3/uL 0.14 Absolute Basophils (0.0-0.2) 10^3/uL 0.03 Sodium (136-145) mmol/L 140 Potassium (3.5-5.1) mmol/L 4.1 Chloride (98-107) mmol/L 102 Carbon Dioxide (21.0-32.0) mmol/L 26.8 Anion Gap (3-11) mmol/L 11.2 H BUN (7-18) mg/dL 21 H Creatinine (0.55-1.02) mg/dL 0.9 Est GFR (CKD-EPI 2020) (mL/min/1.73m2) 64.63 Glucose (74-106) mg/dL 104 Calcium (8.5-10.1) mg/dL 9.7 Magnesium (1.8-2.4) mg/dL 2.0 Total Bilirubin (0.2-1.0) mg/dL 0.5 AST (15-37) U/L 12 L ALT (14-59) U/L 23 Alkaline Phosphatase (46-116) U/L 73 Troponin I (< or =60) ng/L < 50 NT-Pro-B Natriuret Pep (<300) pg/mL 1242 H Total Protein (6.4-8.2) g/dL 7.7 Albumin (3.4-5.0) g/dL 3.8 TSH (0.36-3.74) uIU/mL 0.87 COVID-19 Source NASOPHARYNX SARS-CoV-2 (PCR) (Negative) Negative Influenza Type A (PCR) (Negative) Negative Influenza Type B (PCR) (Negative) Negative RSV (PCR) (Negative) Negative PFSH <SEJAL Mendez - Last Filed: 09/17/23 10:57> All Active Problems COPD exacerbation (Acute) Mobitz II (Acute) Known to cardiology since 2011, medical management. 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) Bradycardia following surgery (Acute) Full code status (Acute) Mucinous adenocarcinoma of colon (Acute) Lumbar post-laminectomy syndrome (Acute) Lumbar post-laminectomy syndrome (Acute) Globus sensation (Acute) Psychological factors affecting medical condition (Acute) Ventral hernia (Acute) Pain disorder associated with psychological and physical factors (Acute) Panchal esophagus (Acute) Adjustment disorder (Chronic) Leg edema (Acute) Ataxia (Acute) Pain, joint, foot, right (Acute) Venous (peripheral) insufficiency (Acute) Smoker (Acute) Medical History Infection of right eye Knee pain Acquired talipes planus Moderate asthma Hx of cardiovascular disorder Accidental fall Abdominal pain in female Urinary incontinence Dysphagia Localized edema Muscular incoordination Diastasis of muscle Disorder of sacrum History of neck pain Hip pain Shoulder joint pain Ankle instability Diverticula of intestine Hx of chronic obstructive lung disease Essential hypertension Visual impairment Cataract Acute iridocyclitis Polyneuropathy Carpal tunnel syndrome Tobacco user Anxiety with depression Anemia Colon cancer partial coloectomy History of second degree heart block Low back pain Irregular heart rate Arthritis Lumbar spondylosis Ulnar nerve impingement Cervical spondylosis Cigarette nicotine dependence Obesity Asthma, moderate persistent BCC (basal cell carcinoma) Ovarian mass Body mass index (BMI) of 40.0-44.9 in adult Degenerative disc disease, lumbar Anxiety 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 Fusion of lumbosacral spine Left hip pain Sacroiliac joint pain Restless leg syndrome Knee pain, bilateral First degree AV block H/O urinary frequency Bilateral carpal tunnel syndrome Myalgia Visual acuity reduced Edema Onychodystrophy Abnormal auditory perception (01/10/14) Gastroesophageal reflux disease (01/10/14) Recurrent UTI (01/30/17) Sensory hearing loss, bilateral (02/14/14) Urgency incontinence (01/30/17) Colonic polyp HTN (hypertension) Allergic rhinitis Cervicalgia Tobacco use COPD (chronic obstructive pulmonary disease) Trigger finger Hamstring tendonitis Fibromyalgia Rotator cuff syndrome Lumbar stenosis Foot pain Diverticulosis Major depression Bilateral cataracts Surgical History History of partial colectomy Hx of breast surgery H/O hemicolectomy (~05/08/22) Hx of shoulder surgery Left H/O spinal fusion L4-S1 History of knee replacement History of hip replacement History of carpal tunnel release of both wrists Hx of total knee replacement Hx of colonoscopy Right distal ulnar fracture s/p ORIF DOS: 07/27/20 Family History Father Diabetes Hepatic disorder Alcohol use disorder Son Diabetes Multiple sclerosis Daughter Hx of migraines Mother Dementia Brother Alcohol use disorder Cancer ESOPHAGUS Social History Smoking/Tobacco Use Status: Current every day Tobacco Type: cigarettes Smoking packs per day: 1 Smoking cigarettes per day: 20.0 Smoking risk assessment performed?: Yes Alcohol Intake: current Alcohol Intake frequency: 3 or more drinks per day Alcohol type: beer Details: DAILY Drug use: Rarely Substance use type: marijuana Details: alcohol: t-2, 3-4 beers Housing: house Number of Children: 9 Pets and animals: Yes Pets and animals: dog(s) and horse(s) Current gender identity: female What is your relationship status?: Panel score (0-1 are the most socially isolated patients): 0 What type of physical activity do you participate in: walking Seatbelt use: always Do you feel safe at home: Yes Do you feel safe in your relationship?: Yes Sign Out <SEJAL Mendez - Last Filed: 09/17/23 10:57> Sign Out Data: Sign Out Comment: pending cta, labs, duonebs, and reassessment Last updated by Shahla Colón PA at 09/16/23 16:10 PAWSS <SEJAL Mendez - Last Filed: 09/17/23 10:57> Have you Been Recently Intoxicated or Drunk Within the Last 30 days?: Unable to Obtain Have you Ever Experienced Previous Episodes of Alcohol Withdrawal?: Unable to Obtain Have you ever Experienced Withdrawal Seizures?: Unable to Obtain Have you ever Experienced Delirium Tremens(DT)s?: Unable to Obtain Have you ever undergone Alcohol Rehabilitation Treatment (i.e, inpt ot outpatient treatment programs)?: Unable to Obtain Have you ever Experienced Blackouts?: Unable to Obtain Have you ever Combined Alcohol with other Downers within the last 90 days?: Unable to Obtain Have you ever Combined Alcohol with any other Substance of Abuse during the last 90 days?: Unable to Obtain Positive Blood Alcohol level on Presentation? [PCS.BAL]: Unable to Obtain Evidence of Increased Autonomic Activity (i.e. HR>120, tremor, sweating, agitation, nausea)?: Unable to Obtain Discharge Plan Disposition Patient Disposition: Home Condition: Stable Discharge Details Clinical Impression: COPD exacerbation Primary Care Provider: Wilma Nance V ED Provider: Tiesha Hart Home Meds and New Rx's Prescriptions: New doxycycline hyclate 100 mg capsule 100 mg PO BID Qty: 14 0RF prednisone 20 mg tablet 40 mg PO ONCE Qty: 10 0RF tiotropium bromide 2.5 mcg/actuation mist 2 inh inhalation QAM Qty: 4 0RF Continued estradiol [Estrace] 0.01 % (0.1 mg/gram) cream 2 g VG twice weekly Qty: 42.5 12RF (DME) Oxygen Tank See Rx Instructions .ROUTE .MEDSUPPLY Qty: 1 Rx Instructions: As directed,2L of oxygen bled into BiPAP. oxycodone-acetaminophen [Percocet] 10-325 mg tablet 2 tab PO TID PRN atenolol 25 mg tablet 25 mg PO HS fluoxetine [Prozac] 20 mg PO DAILY multivitamin [Daily-Wayne] 1 EACH tablet 1 ea PO DAILY (DME) cane Device See Rx Instructions .ROUTE .MEDSUPPLY Qty: 1 0RF Rx Instructions: As directed naloxone [Narcan] 4 mg/actuation spray,non-aerosol 4 mg LAWRENCE Q3M PRN Rx Instructions: spray 1 dose into ONE nostril; alternate nostrils w each dose until help arrives losartan 100 mg tablet 100 mg PO DAILY Patient Comments: TAKE 1 TABLET BY MOUTH EVERY DAY cephalexin 500 mg capsule 2,000 mg PO .COMPLEX Rx Instructions: 2,000 mg orally before dental work; nitroglycerin 0.3 mg tablet, sublingual 0.3 mg sublingual Q5M PRN Rx Instructions: do not exceed 3 doses per episode cyclobenzaprine 10 mg tablet 10 mg PO TID PRN fluticasone propionate [Flonase Allergy Relief] 50 mcg/actuation spray,suspension 2 spray intranasal DAILY PRN Rx Instructions: administer into each nostril simvastatin 10 mg tablet 10 mg PO QPM folic acid 1 mg tablet 1 mg PO DAILY oxybutynin chloride 5 mg tablet extended release 24hr 5 mg PO DAILY Qty: 90 3RF fluorouracil 5 % cream 1 applic topical BID ketoconazole 2 % cream 1 applic topical DAILY cholecalciferol (vitamin D3) 50 mcg (2,000 unit) capsule 50 mcg PO DAILY polyethylene glycol 3350 17 gram/dose powder 238 g PO ONCE Qty: 238 0RF Rx Instructions: take per colonoscopy instructions bisacodyl [Dulcolax (bisacodyl)] 5 mg tablet,delayed release (DR/EC) 5 mg PO ONCE Qty: 4 0RF Rx Instructions: take per colonoscopy instructions levothyroxine 175 MCG tablet 175 mcg PO DIRECTED Patient Comments: daily acetaminophen [Tylenol Extra Strength] 500 mg Tablet 1,000 mg PO DIRECTED morphine 15 mg tablet extended release 15 mg PO BID Patient Comments: TAKE 1 TABLET BY MOUTH TWICE DAILY albuterol sulfate [ProAir HFA] 8.5 GM HFA aerosol inhaler 2 puff Inhalation DIRECTED PRN30 Days Qty: 0 0RF Patient Comments: prior to exercise nystatin 100,000 unit/gram cream 1 applic topical DAILY Qty: 30 0RF Rx Instructions: apply to affected areas once daily fentanyl 25 mcg/hr patch 72 hour 1 patch transdermal Q72H Qty: 10 0RF Patient Comments: top of belly last replaced 09/15 Rx Instructions: apply one patch, leave in place fr 72 hours, then repeat as needed for chronic pain Discharge Instructions Instructions: COPD (Chronic Obstructive Pulmonary Disease) (ED) Additional Instructions: Use the albuterol inhaler 1-2 puffs every 4-6 hours as needed for SOB and wheezing. No evidence of pneumonia, blood clot in your lung or heart injury. Follow up with primary care provider in 3-5 days. Return to ED sooner if any worsening or concerns. It is okay to continue with your colonoscopy as previously scheduled. Referrals: Wilma Nance MD [Primary Care Provider] - 3 days Discharge Data Discharge Date/Time-TO BE ENTERED AT DEPARTURE: 09/16/23 19:30
[2023-09-16] MEDS: Albuterol/Ipratropium 3 ML UPD VIAL UPD ×2 (15:23→16:38)
[2023-09-16 15:32] LABS: Abs Immature Grans 0.03 10^3/uL (0.0-0.06); Absolute Basophil Count 0.03 10^3/uL (0.0-0.2); Absolute Eosinophil Count 0.14 10^3/uL (0.0-0.7); Absolute Lymphocyte Count 1.95 10^3/uL (1.2-3.4); Absolute Monocyte Count 0.46 10^3/uL (0.1-0.8); Basophils % 0.5; Eosinophils % 2.4; HCT 40.9 % (36.0-46.0); HGB 13.3 g/dL (11.2-15.7); Immature Grans % 0.5; Lymphocytes % 33.6; MCH 31.7 pg (27.0-33.0); MCHC 32.5 % (32.0-36.0); MCV 97 fL (80-95); MPV 9.4 fL (8.0-11.0); Monocytes % 7.9; Neutrophils % 55.1; Platelet Count 214 10^3/uL (130-400); RDW 12.7 % (11.7-14.6); RDW-SD 45.5 fL; WBC 5.81 10^3/uL (4.4-10.8)
--- NOTE | 2023-09-16 15:42 | NUR.NOTE ---
nebulizer complete; pt states she feels a little better after treatment but still feels she is not able to take as deep a breath as she usually can. Improved air movement in bilat lungs, however exp wheezes are still appreciated in posterior guadalupe.
[2023-09-16 15:56] LABS: ALT 23 U/L (14-59); AST 12 U/L (15-37); Albumin 3.8 g/dL (3.4-5.0); Alkaline Phosphatase 73 U/L (46-116); Anion Gap 11.2 mmol/L (3-11); BUN 21 mg/dL (7-18); Bilirubin, Total 0.5 mg/dL (0.2-1.0); CO2 26.8 mmol/L (21.0-32.0); CREATININE 0.9 mg/dL (0.55-1.02); Calcium 9.7 mg/dL (8.5-10.1); Chloride 102 mmol/L (98-107); Estimated GFR 64.63 (mL/min/1.73m2); Glucose 104 mg/dL (74-106); NT-proBNP 1242 pg/mL (<300); Potassium 4.1 mmol/L (3.5-5.1); Sodium 140 mmol/L (136-145); Total Protein 7.7 g/dL (6.4-8.2); Troponin I < 50 ng/L (< or =60)
[2023-09-16 15:58] LABS: TSH (W/Ref FT4) 0.87 uIU/mL (0.36-3.74)
[2023-09-16 16:10] LABS: COVID-19 PCR Negative (Negative); Influenza A PCR Negative (Negative); Influenza B PCR Negative (Negative); RSV PCR Negative (Negative)
[2023-09-16 16:11] LABS: Source NASOPHARYNX
[2023-09-16] MEDS: Omnipaque 350 MG/ML 100 ML BTL IJ (16:27)
[2023-09-16] MEDS: Normal Saline - Diluent 50 ML VIAL IJ (16:28)
[2023-09-16] MEDS: methylPREDNISolone SUCC 125 MG VIAL IVP (18:30)
[2023-09-16 18:50] LABS: Troponin I < 50 ng/L (< or =60)
[2023-09-16] MEDS: Albuterol HFA 8 GM 60 PUFF INH IH (19:26)
== END 2023-09-16 19:30 | disposition home or self-care (01) ==
PROVIDERS: Physician Assistant; Emergency Provider Registered Nurse Emergency; PCP Family Medicine
DX: J44.1 Chronic obstructive pulmonary disease with (acute) exacerbation (principal)
CPT/HCPCS: 36415; 71275; 80053; 87637; 93005; 94640; 96374; 99285; 83735; 83880; 84443; 84484; 85025; 93010; 99284; J2930; J3490; J7620

== ENCOUNTER → 2023-10-01 02:22 | Outpatient (CLI) | payer MEDICARE, BC, SELFPAY ==
--- NOTE | 2023-10-01 14:15 | DI.MRI_ITS ---
Exam(s) MR BRAIN WO EXAM: MR BRAIN WO CLINICAL HISTORY: new gait ataxia,? MYELOPATHY,R27.0. TECHNIQUE: Multiplanar multisequence MRI of the brain was performed. CONTRAST MATERIAL: IV Contrast: ML of Dotarem contrast administered. COMPARISON: MR MR CERVICAL SPINE WO from 10/01/2023 FINDINGS: VENTRICLES AND EXTRA AXIAL SPACES: Normal in size and morphology for the patient's age. HEMORRHAGE: None. CEREBRAL PARENCHYMA: No focus of restricted diffusion to suggest acute infarct. No space-occupying le martin identified. Mild atrophy consistent with the patient's age. No abnormal white matter lesions. MIDLINE SHIFT: None. BRAINSTEM/CEREBELLUM: Normal. CALVARIUM: Normal. ENHANCEMENT: No suspicious enhancement identified. VISUALIZED PARANASAL SINUSES/MASTOIDS: Clear. Orbits: Unremarkable. Pituitary: Normal. Vasculature: Normal flow voids. IMPRESSION: Unremarkable MRI of the brain. DATA REPOSITORY:
--- NOTE | 2023-10-01 14:55 | DI.MRI_ITS ---
Exam(s) MR CERVICAL SPINE WO EXAM: MR CERVICAL SPINE WO CLINICAL HISTORY: new gait ataxia, ?myelopathy,r27.0 TECHNIQUE: Multiplanar multisequence MRI of the cervical spine was performed without intravenous con trast. COMPARISON: MR MR CERVICAL SPINE WO from 05/29/[address] CHEST W from 05/16/2023 FINDINGS: Exam mildly limited motion. BONES: Vertebral body heights are maintained. Scoliosis is noted at the upper thoracic spine. Bone m arrow signal intensity is within normal limits. CERVICAL CORD: Craniovertebral junction is unremarkable. The cervical cord is normal size and signal intensity. SOFT TISSUES: Unremarkable. C2-3: No disc herniation or bulge is identified. . No significant central canal stenosis. C3-4: Moderate endplate osteophytes and mild posterior disc bulging. Facet degenerative changes. Mi ld central canal stenosis. Small amount of fluid remains present around the cord. Bilateral neural foraminal narrowing. C4-5: Loss of disc height. Small endplate osteophytes. No central canal stenosis. Bilateral neural foraminal narrowing.. C5-6: Severe loss of disc height. Prominent endplate osteophytes projecting circumferentially. Mild narrowing of the central canal. Prominent facet degenerative changes. Bilateral neural foraminal n arrowing. C6-7: Prominent osteophytes projecting circumferentially. Mild central canal stenosis. Left neural foraminal narrowing. C7-T1: Mild disc bulging. Facet degenerative changes. No significant central canal stenosis. Neura l foraminal narrowing greater on the left. Upper thoracic levels also show osteophytes, disc bulging and neural foraminal narrowing. IMPRESSION: Severe degenerative changes causing mild central canal stenosis at C3-4, C5-6 and C6-7. Bilateral ne ural foraminal narrowing present at multiple levels. No focal disc herniation. Cord signal is maame l. DATA REPOSITORY:
== END ==
PROVIDERS: PCP Family Medicine; Visit Provider Psychiatry & Neurology Neurology
DX: M48.02 Spinal stenosis, cervical region; R27.0 Ataxia, unspecified
CPT/HCPCS: 36415; 70551; 72141; 82607; 84165; 86320

== ENCOUNTER 2023-10-01 15:19 | Outpatient (CLI) | payer MEDICARE, BC, SELFPAY ==
[2023-10-01 16:43] LABS: Vitamin B12 444 pg/mL (193-986)
[2023-10-03 15:51] LABS: Albumin g/dL 3.7 g/dL (3.6-5.2); Comment (See Note); Total Protein 6.5 g/dL (6.3-8.2)
[2023-10-03 16:05] LABS: Immunotyping, Serum (See Note)
== END 2023-10-01 15:20 | disposition home or self-care (01) ==
LOC: LBO 15:20
PROVIDERS: PCP Family Medicine; Visit Provider Psychiatry & Neurology Neurology
DX: G62.9 Polyneuropathy, unspecified (principal)
CPT/HCPCS: 36415; 82607; 84165; 86320

== ENCOUNTER 2023-10-16 06:51 | Day surgery (SDC) | payer MEDICARE, BC, SELFPAY ==
--- NOTE | 2023-09-16 12:58 | NUR.NOTE ---
Pt. states for the past several days she has had chest tightness around where her diaphragm that wraps around to her back, pt. denies nausea/vomiting, sweatiness, pain down her arm. Pt.did not feel like she was in immediate danger, but just didn't think things felt right. Pt. was instructed to report to the ER or call 911 if she didn't feel like could get to ER appropriately with her current situation. Consulted with ELVIN on this who is in agreeance. Also stated that if ER work up is negative and they ok her to proceed then we will continue on with her C&G . All in understanding of plan.Nursing Note:
--- NOTE | 2023-10-15 18:55 | W.PM.DSUDISC ---
Date of service: 10/16/23 Time of Service: 11:50 Discharge Plan Disposition Patient Disposition: Home Condition: Good Discharge Details Reason For Visit: EGD and colonoscopy Attending Provider: Asher Jennings Primary Care Provider: Wilma Nance V Home Meds and New Rx's Prescriptions: Continued estradiol [Estrace] 0.01 % (0.1 mg/gram) cream 2 g VG twice weekly Qty: 42.5 12RF (DME) Oxygen Tank See Rx Instructions .ROUTE .MEDSUPPLY Qty: 1 Rx Instructions: As directed,2L of oxygen bled into BiPAP. oxycodone-acetaminophen [Percocet] 10-325 mg tablet 2 tab PO TID PRN atenolol 25 mg tablet 25 mg PO HS fluoxetine [Prozac] 20 mg PO DAILY multivitamin [Daily-Wayne] 1 EACH tablet 1 ea PO DAILY (DME) cane Device See Rx Instructions .ROUTE .MEDSUPPLY Qty: 1 0RF Rx Instructions: As directed naloxone [Narcan] 4 mg/actuation spray,non-aerosol 4 mg [place] Q3M PRN Rx Instructions: spray 1 dose into ONE nostril; alternate nostrils w each dose until help arrives losartan 100 mg tablet 100 mg PO DAILY Patient Comments: TAKE 1 TABLET BY MOUTH EVERY DAY cephalexin 500 mg capsule 2,000 mg PO .COMPLEX Rx Instructions: 2,000 mg orally before dental work; nitroglycerin 0.3 mg tablet, sublingual 0.3 mg sublingual Q5M PRN Rx Instructions: do not exceed 3 doses per episode cyclobenzaprine 10 mg tablet 10 mg PO TID PRN fluticasone propionate [Flonase Allergy Relief] 50 mcg/actuation spray,suspension 2 spray intranasal DAILY PRN Rx Instructions: administer into each nostril simvastatin 10 mg tablet 10 mg PO QPM folic acid 1 mg tablet 1 mg PO DAILY oxybutynin chloride 5 mg tablet extended release 24hr 5 mg PO DAILY Qty: 90 3RF fluorouracil 5 % cream 1 applic topical BID ketoconazole 2 % cream 1 applic topical DAILY cholecalciferol (vitamin D3) 50 mcg (2,000 unit) capsule 50 mcg PO DAILY levothyroxine 175 MCG tablet 175 mcg PO DIRECTED Patient Comments: daily prednisone 20 mg tablet 40 mg PO ONCE Qty: 10 0RF tiotropium bromide 2.5 mcg/actuation mist 2 inh inhalation QAM Qty: 4 0RF acetaminophen [Tylenol Extra Strength] 500 mg Tablet 1,000 mg PO DIRECTED morphine 15 mg tablet extended release 15 mg PO BID Patient Comments: TAKE 1 TABLET BY MOUTH TWICE DAILY albuterol sulfate [ProAir HFA] 8.5 GM HFA aerosol inhaler 2 puff Inhalation DIRECTED PRN30 Days Qty: 0 0RF Patient Comments: prior to exercise nystatin 100,000 unit/gram cream 1 applic topical DAILY Qty: 30 0RF Rx Instructions: apply to affected areas once daily fentanyl 25 mcg/hr patch 72 hour 1 patch transdermal Q72H Qty: 10 0RF Patient Comments: top of belly last replaced 09/15 Rx Instructions: apply one patch, leave in place fr 72 hours, then repeat as needed for chronic pain Discontinued polyethylene glycol 3350 17 gram/dose powder 238 g PO ONCE Qty: 238 0RF Rx Instructions: take per colonoscopy instructions bisacodyl [Dulcolax (bisacodyl)] 5 mg tablet,delayed release (DR/EC) 5 mg PO ONCE Qty: 4 0RF Rx Instructions: take per colonoscopy instructions Discharge Instructions Instructions: Peptic Ulcer (GEN), Diverticulosis (GEN), GERD (Gastroesophageal Reflux Disease) (GEN), Colorectal Polyps (GEN), Diverticulosis Diet (GEN) Additional Instructions: Shiloh, we were able to complete your procedure today without any difficulty. You do have some inflammation in the first part of your small intestine called the duodenum. This is very similar to a stomach ulcer. I did perform some biopsies of this area to make sure it is nothing more worrisome. He also have signs of longstanding gastroesophageal reflux disease. I did some biopsies around the connection of your esophagus down to your stomach to better characterize the area. I suspect the swallowing difficulty that you are experiencing is a complication of longstanding gastroesophageal reflux disease. I think the best options to take care of it involves weight loss, and cessation of smoking. With regards to your colonoscopy, everything went very smoothly. You do have extensive diverticulosis, which is consistent with your previous endoscopies. Making sure that you have a diet that is rich in fiber and avoiding constipation and dehydration are probably the best strategy to help treat this. I did find 2 polyps, which I removed completely. Once I have the results of all the biopsies and polyp report, my office will be in touch with recommendations for your next procedures. At the very least, given your history, I recommend a 6-month interval follow-up for your next colonoscopy, and then moved to yearly colonoscopies after that assuming the next 1 is negative 1. If tolerated, consume a soft, low fiber diet for 1-2 days. 2[address] Do not drive, drink alcohol, operate machinery, make critical decisions, or do activities that require coordination or balance for 24 hours. 3. Because air was put into your colon during the procedure, expelling air from your rectum (passing gas or farting) is normal. 4. You may not have a bowel movement for 1-3 days because of the colonoscopy prep. This is normal. 5. You may experience a sore throat for 24 to 48 hours. You may use throat lozenges or gargle with warm salt water to relieve the discomfort. 6. Because air was put into your stomach during the procedure, you may experience some belching. 7. Go directly to the emergency room if you notice any of the following: Develop chills (warm to touch), or if you have a thermometer and your temperature is above 101 Difficulty breathing or difficultly swallowing Persistent vomiting Severe abdominal pain, other than gas cramps Severe chest pain Black, tarry stools Any bleeding ? exceeding one tablespoon 8. Call your physician if the site where your intravenous was started becomes red, swollen, painful, and warm to touch. 9. Your physician has reviewed your pre-procedure medications. Please continue to take those medications as previously ordered. You will be given specific information/education regarding any changes to your medications before leaving. Activity:: Activity as Tolerated Diet:: As Tolerated Discharge Orders Discharge Orders: Discharge Order (Routine); Ordered 10/15/23 Ordered By: Asher Jennings DS: Diagnosis Discharge Diagnosis (1) Screen for colon cancer: Status: Acute Asessment and Plan: Follow-up on biopsy and polypectomy results
--- NOTE | 2023-10-15 18:58 | HPE_ITS ---
Assessment and Plan Assessment and plan (1) Screen for colon cancer: Status: Acute Assessment and plan: We reviewed the plan for a colonoscopy today, as well as an EGD given her dyspepsia and globus sensation. We also reviewed the risks and the benefits of the procedures, she was agreeable and affirmed her previous consent. History of Present Illness History of Present Illness Chief Complaint: Dyspepsia and screening colonoscopy Narrative: Shiloh is here for an EGD and colonoscopy. She has been experiencing a signi ficant amount of globus sensation, as well as dyspepsia consistent with poorly controlled gastroesophageal reflux disease. 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 Unfortunately, she had to cancel those procedures because of COVID infection, as well as a fall with a laceration. Most recently, she has been feeling pretty good. She did have about a 10 pound weight gain that was not anticipated. She has formed regular bowel movements every day without any melena, hematochezia, or other concerning signs. She remains an active tobacco smoker, but continues to work on it. She is planning to meet with a hypnotist in the next week or 2. Since her last visit to the office, she did have an emergency department evaluation for some shortness of breath. It seemed most consistent with a COPD exacerbation. Since then, she has been doing well. [facility] All Active Problems Screen for colon cancer (Acute) Palliative care status (Acute) COPD exacerbation (Acute) Mobitz II (Acute) Known to cardiology since 2011, medical management. 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) Bradycardia following surgery (Acute) Full code status (Acute) Mucinous adenocarcinoma of colon (Acute) Lumbar post-laminectomy syndrome (Acute) Lumbar post-laminectomy syndrome (Acute) Globus sensation (Acute) Psychological factors affecting medical condition (Acute) Ventral hernia (Acute) Pain disorder associated with psychological and physical factors (Acute) Panchal esophagus (Acute) Adjustment disorder (Chronic) Leg edema (Acute) Ataxia (Acute) Pain, joint, foot, right (Acute) Venous (peripheral) insufficiency (Acute) Smoker (Acute) Medical History Infection of right eye Knee pain Acquired talipes planus Moderate asthma Hx of cardiovascular disorder Accidental fall Abdominal pain in female Urinary incontinence Dysphagia Localized edema Muscular incoordination Diastasis of muscle Disorder of sacrum History of neck pain Hip pain Shoulder joint pain Ankle instability Diverticula of intestine Hx of chronic obstructive lung disease Essential hypertension Visual impairment Cataract Acute iridocyclitis Polyneuropathy Carpal tunnel syndrome Tobacco user Anxiety with depression Anemia Colon cancer partial coloectomy History of second degree heart block Low back pain Irregular heart rate Arthritis Lumbar spondylosis Ulnar nerve impingement Cervical spondylosis Cigarette nicotine dependence Obesity Asthma, moderate persistent BCC (basal cell carcinoma) Ovarian mass Body mass index (BMI) of 40.0-44.9 in adult Degenerative disc disease, lumbar Anxiety 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 Fusion of lumbosacral spine Left hip pain Sacroiliac joint pain Restless leg syndrome Knee pain, bilateral First degree AV block H/O urinary frequency Bilateral carpal tunnel syndrome Myalgia Visual acuity reduced Edema Onychodystrophy Abnormal auditory perception (01/10/14) Gastroesophageal reflux disease (01/10/14) Recurrent UTI (01/30/17) Sensory hearing loss, bilateral (02/14/14) Urgency incontinence (01/30/17) Colonic polyp HTN (hypertension) Allergic rhinitis Cervicalgia Tobacco use COPD (chronic obstructive pulmonary disease) Trigger finger Hamstring tendonitis Fibromyalgia Rotator cuff syndrome Lumbar stenosis Foot pain Diverticulosis Major depression Bilateral cataracts Surgical History History of partial colectomy Hx of breast surgery H/O hemicolectomy (~05/08/22) Hx of shoulder surgery Left H/O spinal fusion L4-S1 History of knee replacement History of hip replacement History of carpal tunnel release of both wrists Hx of total knee replacement Hx of colonoscopy Right distal ulnar fracture s/p ORIF DOS: 07/27/20 Family History Father Diabetes Hepatic disorder Alcohol use disorder Son Diabetes Multiple sclerosis Daughter Hx of migraines Mother Dementia Brother Alcohol use disorder Cancer ESOPHAGUS Social History Smoking/Tobacco Use Status: Current every day Tobacco Type: cigarettes Smoking packs per day: 1 Smoking cigarettes per day: 20.0 Smoking risk assessment performed?: Yes Alcohol Intake: current Alcohol Intake frequency: 3 or more drinks per day Alcohol type: beer Details: DAILY Drug use: Rarely Substance use type: marijuana Details: alcohol: t-2, 3-4 beers Housing: house Number of Children: 9 Pets and animals: Yes Pets and animals: dog(s) and horse(s) Current gender identity: female What is your relationship status?: Panel score (0-1 are the most socially isolated patients): 0 What type of physical activity do you participate in: walking Seatbelt use: always Do you feel safe at home: Yes Do you feel safe in your relationship?: Yes Meds Allergies and Home Medications Allergies Allergy/AdvReac Type Severity Reaction Status Date / Time formoterol [From Dulera] Allergy Intermediate unknown Verified 10/16/23 07:00 mometasone furoate AdvReac Intermediate thrush Verified 10/16/23 07:00 [From Dulera] [email or web address] [From Myrbetriq] AdvReac Increased Verified 10/16/23 07:00 blood pressure doxycycline Allergy Severe Nausea Uncoded 10/16/23 07:00 Home Medications Medication Instructions Recorded Confirmed Type levothyroxine 175 mcg tablet 175 mcg PO DIRECTED 09/17/14 10/16/23 History multivitamin (Daily-Wayne tablet) 1 ea PO DAILY 08/15/17 10/16/23 History cane #1 ea 02/24/20 09/10/23 Rx naloxone 4 mg/actuation nasal 4 mg intranasal Q3M PRN 02/24/20 09/16/23 History spray (Narcan) Oxygen #1 ea 02/15/21 09/10/23 History oxycodone-acetaminophen 10 mg-325 2 tab PO TID PRN 09/04/21 09/16/23 History mg tablet (Percocet) acetaminophen 500 mg tablet 1,000 mg PO DIRECTED 05/08/22 10/16/23 History (Tylenol Extra Strength) morphine 15 mg tablet,extended 15 mg PO BID 05/09/22 10/16/23 History release albuterol sulfate 90 mcg/actuation 2 puff inhalation DIRECTED PRN 05/16/22 10/16/23 Rx aerosol inhaler (ProAir HFA) 30 days #0 grams fentanyl 25 mcg/hr transdermal 1 patch transdermal Q72H #10 ea 05/16/22 10/16/23 Rx patch nystatin 100,000 unit/gram topical 1 applic topical DAILY #30 grams 05/16/22 09/16/23 Rx cream cephalexin 500 mg capsule 2,000 mg PO .COMPLEX 08/19/22 10/16/23 History losartan 100 mg tablet 100 mg PO DAILY 08/19/22 10/16/23 History estradiol 0.01% (0.1 mg/gram) 2 g vaginal twice weekly #42.5 09/02/22 10/16/23 Rx vaginal cream (Estrace) grams atenolol 25 mg tablet 25 mg PO HS 09/15/22 10/16/23 History cyclobenzaprine 10 mg tablet 10 mg PO TID PRN 09/15/22 10/16/23 History nitroglycerin 0.3 mg sublingual 0.3 mg sublingual Q5M PRN 09/15/22 10/16/23 History tablet fluticasone propionate 50 2 spray intranasal DAILY PRN 12/26/22 10/16/23 History mcg/actuation nasal spray,suspension (Flonase Allergy Relief) simvastatin 10 mg tablet 10 mg PO QPM 12/26/22 10/16/23 History fluoxetine 20 mg PO DAILY 04/13/23 10/16/23 History folic acid 1 mg tablet 1 mg PO DAILY 04/13/23 10/16/23 History oxybutynin chloride 5 mg 5 mg PO DAILY #90 tabs 08/12/23 10/16/23 Rx tablet,extended release 24 hr cholecalciferol (vitamin D3) 50 50 mcg PO DAILY 08/19/23 10/16/23 History mcg (2,000 unit) capsule fluorouracil 5 % topical cream 1 applic topical BID 08/19/23 09/16/23 History ketoconazole 2 % topical cream 1 applic topical DAILY 08/19/23 09/10/23 History prednisone 20 mg tablet 40 mg (2 x 20 mg) PO ONCE #10 tabs 09/17/23 10/16/23 Rx tiotropium bromide 2.5 2 inh inhalation QAM #4 grams 09/17/23 10/16/23 Rx mcg/actuation mist for inhalation Exam Const General: cooperative and not in acute distress Neck Neck: normal visual inspection, no lymphadenopathy and supple Thyroid: thyroid normal Resp Effort & Inspection: normal respiratory effort Auscultation: clear to auscultation bilaterally Cardio Jugular venous pressure: no JVD Rate: regular rate Rhythm: regular rhythm Heart Sounds: S1 normal and S2 normal GI Inspection: normal to inspection Palpation: soft, no guarding, no hernias and nontender Percussion: normal to percussion Auscultation: normal bowel sounds Neuro General: patient alert, patient awake and patient oriented x3 Psych Appearance: grossly normal
--- NOTE | 2023-10-15 18:58 | W.PM.ENDDOP ---
Date of service: 10/16/23 Time of Service: 11:43 Endoscopy Report DATE OF PROCEDURE: 10/16/23 PRE-OP DIAGNOSIS: Dysphagia and screening colonoscopy POST-OP DIAGNOSIS: other (Duodenal ulcer, GERD; colon polyps, diverticulosis) PROCEDURE: EGD with biopsies and colonoscopy with polypectomy SURGEON: Asher Jennings ANESTHESIA TYPE: General:No Airway ESTIMATED BLOOD LOSS: 10 PATHOLOGY: other (Duodenal ulcer, random biopsies of gastric antrum and body, biopsies of GE junction. 0.25 cm colon polyp at 50 cm, 0.25 cm colon polyp at 20 cm) COMPLICATIONS: None DISPOSITION: same day INDICATIONS: Shiloh is an 78 year old woman with occasional globus sensation and longstanding dysphagia associated with chronic reflux. She is also due for a surveillance colonoscopy after colon resection for cancer PREP: Miralax/Dulcolax PROCEDURE START TIME: 11:06 PROCEDURE END TIME: 11:34 COLONOSCOPY RETRACTION TIME: 11 FINDINGS: Duodenal ulcer, duodenitis, irregularity of the Z-line around 35 cm from the incisors. Diverticulosis, healthy appearing anastomosis, 0.25 cm polyp at 50 cm, 0.25 cm polyp at 20 cm PROCEDURE DESCRIPTION: After the initiation of anesthesia, and with the assistance of a bite block, I advanced a standard gastroscope through the mouth past the hypopharynx and towards the esophagus. There was mild irregularity of the Z-line around 35 cm from the incisors. Narrowband imaging was used to assist with analysis. Advance the camera down into the stomach and insufflated until the rugae were obliterated. I performed retroflexion. I did not see any signs of hiatal hernias. I turned the camera antegrade, and navigated down around the incisura angularis towards the pylorus. There was a little bit of inflammation at the pylorus. I passed the scope across the pylorus into the duodenum. The mucosa was a little bit friable with some signs of duodenitis. There also appeared to be healing duodenal ulcer. The camera was advanced down to the third portion of the duodenum. Otherwise there were no specific abnormalities. I did perform biopsies of the duodenal ulcer using cold forceps with minimal bleeding. I brought the camera back up into the stomach and perform random biopsies of the gastric antrum and body with cold forceps as well. Next, I emptied the stomach and brought the camera back up to the GE junction. Cold forceps biopsies were used to sample the GE junction. I then brought the camera out along the length of the esophagus proper. Did not see any other abnormalities of the lower, mid, or upper esophagus. We then moved Shiloh into the left lateral decubitus position. I began by performing an external anorectal exam.? Perineum and skin were normal, as was the anal verge.? There are some external hemorrhoids.? Next, I performed a digital rectal exam.? I did not appreciate any abnormal findings.? Next, I advanced a colonoscope into the rectal vault.? I performed retroflexion.? This was normal.? Using insufflation, I then advanced the colonoscope beyond the rectal folds and into the sigmoid colon before advancing towards the cecum.? There was some retained fecal material that required extensive irrigation. There was diverticulosis along the length of the colon, but mostly focused in the sigmoid region.? I was able to traverse the colocolonic anastomosis without any difficulty. The scope was noted to be in the cecum by identification of the ileocecal valve and appendiceal orifice.? I then began withdrawing the colonoscope using repeated irrigation as necessary for full evaluation of the colonic mucosa. ?Distal to the anastomosis, around 50 cm from the anal verge was a 0.25 cm flat polyp. This was removed with cold forceps. Once the scope was withdrawn to the level of the rectum, great care was taken to examine portions of the rectal folds.? Another polyp was detected at 20 cm from the anal verge. This was less than 0.25 cm and also removed with cold forceps finally, the scope was withdrawn and the patient was brought to the same-day surgery recovery unit as the anesthetic wore off. ?The findings and instructions were shared with the patient prior to discharge. I recommend an extended prep, with more aggressive lavage for the next colonoscopy. The [place] bowel prep score from right to left was 2, 2, 1
[2023-10-16 07:15] VITALS: BP 136/62; PULSE 64; RESP 20; TEMP 36.4; O2SAT 95
[2023-10-16] MEDS: Lactated Ringers 1,000 ML 80 ML IV (07:41)
--- NOTE | 2023-10-16 10:18 | ANES.PREOP_ITS ---
General Info Date of Service Date Performed: 10/16/23 Height: 5 ft 3 in Weight: 109.6 kg Body Mass Index (BMI): 42.7 Surgical Procedure: Operation Date: 10/16/23 08:20 Proposed Procedure Side Surgeon p Colonoscopy/Gastroscopy Asher Jennings MD Meds Allergies and Home Medications Allergies Allergy/AdvReac Type Severity Reaction Status Date / Time formoterol [From Dulera] Allergy Intermediate unknown Verified 10/16/23 07:00 mometasone furoate AdvReac Intermediate thrush Verified 10/16/23 07:00 [From Dulera] [email or web address] [From Myrbetriq] AdvReac Increased Verified 10/16/23 07:00 blood pressure doxycycline Allergy Severe Nausea Uncoded 10/16/23 07:00 Home Medication Medication Instructions Recorded levothyroxine 175 mcg tablet 175 mcg PO DIRECTED 09/17/14 multivitamin (Daily-Wayne tablet) 1 ea PO DAILY 08/15/17 cane #1 ea 02/24/20 naloxone 4 mg/actuation nasal 4 mg intranasal Q3M PRN 02/24/20 spray (Narcan) Oxygen #1 ea 02/15/21 oxycodone-acetaminophen 10 mg-325 2 tab PO TID PRN 09/04/21 mg tablet (Percocet) acetaminophen 500 mg tablet 1,000 mg PO DIRECTED 05/08/22 (Tylenol Extra Strength) morphine 15 mg tablet,extended 15 mg PO BID 05/09/22 release albuterol sulfate 90 mcg/actuation 2 puff inhalation DIRECTED PRN 05/16/22 aerosol inhaler (ProAir HFA) 30 days #0 grams fentanyl 25 mcg/hr transdermal 1 patch transdermal Q72H #10 ea 05/16/22 patch nystatin 100,000 unit/gram topical 1 applic topical DAILY #30 grams 05/16/22 cream cephalexin 500 mg capsule 2,000 mg PO .COMPLEX 08/19/22 losartan 100 mg tablet 100 mg PO DAILY 08/19/22 estradiol 0.01% (0.1 mg/gram) 2 g vaginal twice weekly #42.5 09/02/22 vaginal cream (Estrace) grams atenolol 25 mg tablet 25 mg PO HS 09/15/22 cyclobenzaprine 10 mg tablet 10 mg PO TID PRN 09/15/22 nitroglycerin 0.3 mg sublingual 0.3 mg sublingual Q5M PRN 09/15/22 tablet fluticasone propionate 50 2 spray intranasal DAILY PRN 12/26/22 mcg/actuation nasal spray,suspension (Flonase Allergy Relief) simvastatin 10 mg tablet 10 mg PO QPM 12/26/22 fluoxetine 20 mg PO DAILY 04/13/23 folic acid 1 mg tablet 1 mg PO DAILY 04/13/23 oxybutynin chloride 5 mg 5 mg PO DAILY #90 tabs 08/12/23 tablet,extended release 24 hr cholecalciferol (vitamin D3) 50 50 mcg PO DAILY 08/19/23 mcg (2,000 unit) capsule fluorouracil 5 % topical cream 1 applic topical BID 08/19/23 ketoconazole 2 % topical cream 1 applic topical DAILY 08/19/23 prednisone 20 mg tablet 40 mg (2 x 20 mg) PO ONCE #10 tabs 09/17/23 tiotropium bromide 2.5 2 inh inhalation QAM #4 grams 09/17/23 mcg/actuation mist for inhalation Current Visit Medications: Current Medications Generic Name Dose Route Start Last Admin Trade Name Freq PRN Reason Stop Dose Admin Hyoscyamine Sulfate 0.125 mg 10/15/23 19:01 Hyoscyamine 0.125 Mg Sl/Oral/Chew SL 11/14/23 19:00 DIRECTED PRN Ringer's Solution 1,000 mls @ 80 mls/hr 10/16/23 06:00 10/16/23 07:41 IV 10/16/23 23:59 80 mls/hr INFUSION LORI Administration IV Miscellaneous Supplies 1 each 10/16/23 06:00 Iv Access IV 10/16/23 23:59 DIRECTED LORI Ondansetron HCl 4 mg 10/15/23 19:06 Ondansetron 4 Mg/2 Ml Vial IVP 11/14/23 19:05 Q4H PRN PRN Nausea / Vomiting Sodium Chloride 0 ml 10/16/23 06:00 Normal Saline Flush 10 Ml Syr IV 10/16/23 23:59 PRN PRN Sodium Chloride 0 ml 10/16/23 06:00 Normal Saline 10 Ml Vial IJ 10/16/23 23:59 DIRECTED PRN Sterile Water 0 ml 10/16/23 06:00 Water,Injection,Sterile 10 Ml Vial IJ 03/21/24 23:59 DIRECTED PRN PFSH Active Problems Active Problems: Problem Status Onset Code Screen for colon cancer Z12.11 Palliative care status Z51.5 COPD exacerbation J44.1 Mobitz II Hypothyroidism CKD (chronic kidney disease) Mixed stress and urge urinary incontinence N39.46 History of prediabetes Z87.898 Peripheral neuropathy G62.9 Chronic pain G89.29 SUGEY on CPAP G47.33, Z99.89 Severe obesity E66.01 Periodic limb movement disorder 10/23/18 G47.61 Obstructive sleep apnea syndrome G47.33 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.34 Bradycardia following surgery I97.89 Full code status Z78.9 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 Lumbar post-laminectomy syndrome M96.1 Lumbar post-laminectomy syndrome M96.1 Globus sensation R09.89 Psychological factors affecting medical condition F54 Ventral hernia K43.9 Pain disorder associated with psychological and physical factors F45.42 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 Adjustment disorder F43.20 Leg edema R60.0 Ataxia R27.0 Pain, joint, foot, right M25.571 Venous (peripheral) insufficiency I87.2 Smoker F17.200 Medical History Medical History Infection of right eye Knee pain Acquired talipes planus Moderate asthma Hx of cardiovascular disorder Accidental fall Abdominal pain in female Urinary incontinence Dysphagia Localized edema Muscular incoordination Diastasis of muscle Disorder of sacrum History of neck pain Hip pain Shoulder joint pain Ankle instability Diverticula of intestine Hx of chronic obstructive lung disease Essential hypertension Visual impairment Cataract Acute iridocyclitis Polyneuropathy Carpal tunnel syndrome Tobacco user Anxiety with depression Anemia Colon cancer partial coloectomy History of second degree heart block Low back pain Irregular heart rate Arthritis Lumbar spondylosis Ulnar nerve impingement Cervical spondylosis Cigarette nicotine dependence Obesity Asthma, moderate persistent BCC (basal cell carcinoma) Ovarian mass Body mass index (BMI) of 40.0-44.9 in adult Degenerative disc disease, lumbar Anxiety 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 Fusion of lumbosacral spine Left hip pain Sacroiliac joint pain Restless leg syndrome Knee pain, bilateral First degree AV block H/O urinary frequency Bilateral carpal tunnel syndrome Myalgia Visual acuity reduced Edema Onychodystrophy Abnormal auditory perception (01/10/14) Gastroesophageal reflux disease (01/10/14) Recurrent UTI (01/30/17) Sensory hearing loss, bilateral (02/14/14) Urgency incontinence (01/30/17) Colonic polyp HTN (hypertension) Allergic rhinitis Cervicalgia Tobacco use COPD (chronic obstructive pulmonary disease) Trigger finger Hamstring tendonitis Fibromyalgia Rotator cuff syndrome Lumbar stenosis Foot pain Diverticulosis Major depression Bilateral cataracts Medical History Comments:: Bradycardia post op states for the past several days she has had chest tightness around where her diaphragm that wraps around to her back, pt. denies nausea/vomiting, sweatiness, pain down her arm. Pt.did not feel like she was in immediate danger, but just didn't think things felt right. Pt. was instructed to report to the ER or call 911 if she didn't feel like could get to ER appropriately with her current situation. Consulted with ELVIN on this who is in agreeance. Also stated that if ER work up is negative and they ok her to proceed then we will continue on with her C&G . Surgical History Surgical History History of partial colectomy Hx of breast surgery H/O hemicolectomy (~05/08/22) Hx of shoulder surgery Left H/O spinal fusion L4-S1 History of knee replacement History of hip replacement History of carpal tunnel release of both wrists Hx of total knee replacement Hx of colonoscopy Right distal ulnar fracture s/p ORIF DOS: 07/27/20 Tobacco Smoking/Tobacco Use Status: Current every day Tobacco Type: cigarettes Smoking packs per day: 1 Smoking cigarettes per day: 20.0 Alcohol Alcohol Intake: current Alcohol intake frequency: 3 or more drinks per day Alcohol type: beer Details: DAILY Substance Use Substance use: Rarely Substance use type: marijuana Details: alcohol: t-2, 3-4 beers Vital Signs and Lab Results Vital Signs Most Recent Vital Signs in EMR: Most Recent Vital Signs Temp Pulse Resp BP Pulse Ox 36.4 C L 64 20 136/62 95 10/16/23 07:15 10/16/23 07:15 10/16/23 07:15 10/16/23 07:15 10/16/23 07:15 Lab Results Blood Type / Crossmatch: No Data to Display Complete Blood Count: White Blood Count 5.81 10^3/uL (4.4-10.8) 09/16/23 15:15 Red Blood Count 4.20 10^6/uL (3.93-5.22) 09/16/23 15:15 Hemoglobin 13.3 g/dL (11.2-15.7) 09/16/23 15:15 Hematocrit 40.9 % (36.0-46.0) 09/16/23 15:15 Platelet Count 214 10^3/uL (130-400) 09/16/23 15:15 Complete Metabolic Panel: Sodium 140 mmol/L (136-145) 09/16/23 15:11 Potassium 4.1 mmol/L (3.5-5.1) 09/16/23 15:11 Chloride 102 mmol/L (98-107) 09/16/23 15:11 Carbon Dioxide 26.8 mmol/L (21.0-32.0) 09/16/23 15:11 BUN 21 mg/dL (7-18) H 09/16/23 15:11 Creatinine 0.9 mg/dL (0.55-1.02) 09/16/23 15:11 Est GFR (CKD-EPI 2020) 64.63 (mL/min/1.73m2) 09/16/23 15:11 Magnesium 2.0 mg/dL (1.8-2.4) 09/16/23 15:15 Calcium 9.7 mg/dL (8.5-10.1) 09/16/23 15:11 Albumin 3.8 g/dL (3.4-5.0) 09/16/23 15:11 Glucose 104 mg/dL (74-106) 09/16/23 15:11 Liver Function Panel: Alanine Aminotransferase (ALT/SGPT) 23 U/L (14-59) 09/16/23 15: 11 Aspartate Amino Transf (AST/SGOT) 12 U/L (15-37) L 09/16/23 15: 11 Coagulation Panel: No Data to Display Cardiac Panel: Troponin I < 50 ng/L (< or =60) 09/16/23 NT-Pro-B Natriuret Pep 1242 pg/mL (<300) H 09/16/23 Arterial Blood Gas: No Data to Display Venous Blood Gas: No Data to Display Pancreas Panel: No Data to Display Thyroid Panel: Thyroid Stimulating Hormone (TSH) 0.87 uIU/mL (0.36-3.74) 09/16 15:15 Infectious Disease: Coronavirus (COVID-19)(PCR) Negative (Negative) 09/16/23 15:20 Coronavirus 2019 Source NASOPHARYNX 09/16/23 15:20 Influenza Virus Type A (PCR) Negative (Negative) 09/16/23 15:2 0 Influenza Virus Type B (PCR) Negative (Negative) 09/16/23 15:2 0 Respiratory Syncytial Virus (PCR) Negative (Negative) 09/16/23 15:20 Blood Cultures: No Data to Display Toxicology Panel: No Data to Display Imaging and Studies Imaging and Studies Study information below may be from another EMR and interpreted by another provider. Please see original notes in EMR for more complete details. EKG Summary: 09/16/23 Conclusion Sinus rhythm...normal P axis, V-rate 60- 99 Nonspecific T abnrm, anterolateral leads...T <-0.10mV, I aVL V2-V6 01/11/2022 Conclusion Sinus rhythm...normal P axis, V-rate 60- 99 Prolonged IL interval...IL >220, V-rate 50- 90 Stress Test Summary: 03/22/2022 Clinical Reason for Termination: Fatigue, Dyspnea Stress Symptoms: General Fatigue, Dyspnea Exercise duration: 4 min00 sec Exercise capacity: 2.29 METs Angina Score: None Rate Pressure Product: 44303 Stress ECG Conclusion 1. Resting electrocardiogram showed first-degree AV block, periods of Mobitz 1 second-degree AV block 2. Patient exercised on a Billy protocol and completed a workload of 2.29 METS 3. Peak heart rate achieved was 88% of predicted for age 4. Electrocardiographic portion of the test was negative for myocardial ischemia 5. PVCs were seen 6. See MPI report Stress Test Summary STAGETime (mins)Speed (mph)Grade (%)[id number]/64 [id number]/8293% 1 min [id number]/9897% 3 min [id number]/9098% 6 min [id number]/7098% Patient ambulated on treadmill with a manual modified Billy protocol due to patient's unsteady gait and physical limitation. Patient ambulated for 4 minutes on treadmill with speed of 1.5-2.0 mph and 0%- 2% grade. SpO2 during ambulation was 86% - 91%. Patient reported mild dyspnea during exercise stress which resolved in first minute of recovery. Target heart rate was achieved under these treadmill settings. Patient tolerated testing well. MPI Conclusion Normal myocardial perfusion without evidence of ischemia or prior infarction EF is 66%, wall motion is normal Clinical Reason for Termination: Fatigue, Dyspnea Stress Symptoms: General Fatigue, Dyspnea Exercise duration: 4 min00 sec Exercise capacity: 2.29 METs Angina Score: None Rate Pressure Product: 42752 Stress ECG Conclusion 1. Resting electrocardiogram showed first-degree AV block, periods of Mobitz 1 second-degree AV block 2. Patient exercised on a Billy protocol and completed a workload of 2.29 METS 3. Peak heart rate achieved was 88% of predicted for age 4. Electrocardiographic portion of the test was negative for myocardial ischemia 5. PVCs were seen 6. See MPI report MPI Conclusion Normal myocardial perfusion without evidence of ischemia or prior infarction EF is 66%, wall motion is normal Echocardiogram Summary: 03/26/2022 Conclusion Normal left ventricular wall thickness and chamber size. Estimated ejection fraction is 60% Wall motion is normal Normal right ventricular size and systolic function Both atria are normal in size Trileaflet sclerotic aortic valve without stenosis or regurgitation There is no additional structural or hemodynamically significant valvular disease Pulmonary Function Summary: 05/08/2018 IMPRESSION Normal pulmonary function study. Clinical correlation recommended. For comparison purposes, this study was compared to previous one from 10/30/2015 and 12/15/2015, the patient has a stable FVC and basically stable, mildly improved FEV1 of a total of 70 cc. Clinical correlation recommended. Anesthesia Assessment and Plan Anesthesia History Personal History: No History of Anesthesia Complications Family History: No Family History of Anesthesia Complications Exercise Tolerance Exercise Tolerance: Metabolic Equivalents<4 Pertinent Negatives Pertinent Negatives: No Symptoms of GERD (no GERD symptoms but states feeling of things getting stuck in throat), No Major Cardiovascular Symptoms or Complaints and No Major Pulmonary Symptoms or Complaints Cardiac & Pulmonary Exam Cardiac Exam: Normal S1/S2 Heart Sounds Pulmonary Exam: Clear Bilateral Breath Sounds Cardiac and Pulmonary Comment:: BALDERRAMA, chronic smoker's cough, breathing good today per patient, COPD exacerbation last month improved with nebulizer Implantable Cardiac Device Does patient have a Pacemaker or an ICD?: No Airway Exam Known Difficult Airway: No Mallampati Class: 1 Mouth Opening: Normal (> 3cm) Thyromental Distance: Less than 3 cm Neck Range of Motion: Full ROM Neck Circumference: Normal Teeth Condition: Generalized Poor Dentition (none loose per patient) ASA Classification ASA Score: ASA 3 Emergency Case?: No NPO Status NPO Status: NPO Clears >2 hours, Solids >8 hours Anesthesia Plan Resuscitation Status: Full Code Anesthesia Technique: General Anesthesia Airway Planned: Natural Airway Monitors Used: Standard Monitors
[2023-10-16 10:27] VITALS: BMI 42.7
--- NOTE | 2023-10-16 11:08 | BOWEL_PTH ---
PATIENT: Shiloh Anderson LOC: [facility] U#:[id number] AGE/SX: 78/F ROOM: RE10/16/[address]: Asher Jennings MD : [id number] BED: DIS: 10/16/2023 SPEC #: [id number] RECD: 10/16/23 12:55 STATUS: CHRISTOPHER RE #: [id number] MARY: 10/16/23 11:[address]: Asher Jennings DEPT: Surgical Specimen RECD BY: Shahla العراقي ENTERED: 10/16/23 12:58 SP TYPE: Bowel OTHR DR: Wilma Nance V Tissues: 1 - BIOPSY BOWEL 2 - BIOPSY BOWEL 3 - STOMACH BIOPSY 4 - STOMACH BIOPSY 5 - ESOPHAGUS BIOPSY 6 - BIOPSY BOWEL 7 - BIOPSY BOWEL Procedures: GROSS AND MICRO LEVEL 4 Comments: [id number]
[2023-10-16 11:39] VITALS: BP 119/67; PULSE 57; RESP 16; TEMP 36.5; O2SAT 96
--- NOTE | 2023-10-16 11:43 | W.ANESPOSTOP ---
Postoperative Evaluation Date, Time and Location Date Performed: 10/16/23 Time Performed: 11:43 Patient Location: Day Surgery Unit Vital Signs Most Recent Imported Vital Signs: Most Recent Vital Signs Temp Pulse Resp BP Pulse Ox 36.5 C 57 L 16 119/67 96 10/16/23 11:39 10/16/23 11:39 10/16/23 11:39 10/16/23 11:39 10/16/23 11:39 Pain Score Most Recent Pain Score: Most Recent Pain Score Pain Level 0 10/16/23 11:39 Assessment Mental Status: Awake (Alert & Oriented to Patient Baseline) Airway and Respiratory Function: Patent airway with normal (patient baseline) respiratory exam Cardiovascular Function: Hemodynamically Stable Hydration Status: Adequately Hydrated Nausea & Vomiting: No Nausea or Vomiting Pain: Pt. Denies Any Pain Peripheral Nerve Block: Patient did not receive a nerve block
[2023-10-16 12:10] VITALS: BP 116/57; PULSE 56; RESP 18; TEMP 36.6; O2SAT 94
== END 2023-10-16 12:30 | disposition home or self-care (01) ==
LOC: SUR 06:52
PROVIDERS: PCP Family Medicine; Visit Provider Surgery
PROC: (CPT 45380; principal; 2023-10-16 08:15)
DX: Z12.11 Encounter for screening for malignant neoplasm of colon (principal); D12.5 Benign neoplasm of sigmoid colon; K57.30 Diverticulosis of large intestine without perforation or abscess without bleeding; K21.9 Gastro-esophageal reflux disease without esophagitis; K26.9 Duodenal ulcer, unspecified as acute or chronic, without hemorrhage or perforation; Z85.038 Personal history of other malignant neoplasm of large intestine; G47.33 Obstructive sleep apnea (adult) (pediatric); K22.89 Other specified disease of esophagus; K63.89 Other specified diseases of intestine
CPT/HCPCS: 45380; 43239; 88305; J2001; J2704

== ENCOUNTER 2023-11-14 02:36 | Outpatient (CLI) | payer MEDICARE, BC, SELFPAY ==
[2023-11-14 11:06] LABS: Abs Immature Grans 0.03 10^3/uL (0.0-0.06); Absolute Basophil Count 0.05 10^3/uL (0.0-0.2); Absolute Eosinophil Count 0.25 10^3/uL (0.0-0.7); Absolute Monocyte Count 0.53 10^3/uL (0.1-0.8); Absolute Neutrophil Count 3.73 10^3/uL (1.2-6.7); Basophils % 0.7; Eosinophils % 3.6; HCT 42.7 % (36.0-46.0); HGB 13.9 g/dL (11.2-15.7); Immature Grans % 0.4; Lymphocytes % 34.3; MCH 32.4 pg (27.0-33.0); MCHC 32.6 % (32.0-36.0); MCV 100 fL (80-95); MPV 9.3 fL (8.0-11.0); Monocytes % 7.6; Neutrophils % 53.4; Platelet Count 190 10^3/uL (130-400); RBC 4.29 10^6/uL (3.93-5.22); RDW 12.7 % (11.7-14.6); RDW-SD 46.6 fL; WBC 6.99 10^3/uL (4.4-10.8)
[2023-11-14 11:20] LABS: ALT 25 U/L (14-59); AST 16 U/L (15-37); Albumin 3.7 g/dL (3.4-5.0); Alkaline Phosphatase 100 U/L (46-116); Anion Gap 10.1 mmol/L (3-11); BUN 27 mg/dL (7-18); Bilirubin, Total 0.2 mg/dL (0.2-1.0); CO2 25.9 mmol/L (21.0-32.0); CREATININE 1.1 mg/dL (0.55-1.02); Calcium 9.5 mg/dL (8.5-10.1); Chloride 106 mmol/L (98-107); Glucose 102 mg/dL (74-106); Potassium 4.4 mmol/L (3.5-5.1); Sodium 142 mmol/L (136-145); Total Protein 7.4 g/dL (6.4-8.2)
[2023-11-14 18:18] LABS: CEA 3.2 ng/mL (See Note)
== END 2023-11-14 02:37 | disposition home or self-care (01) ==
LOC: LBO 02:36
PROVIDERS: PCP Family Medicine; Visit Provider Internal Medicine Hematology & Oncology
DX: C18.4 Malignant neoplasm of transverse colon (principal)
CPT/HCPCS: 36415; 80053; 82378; 85025

== ENCOUNTER → 2023-12-01 02:02 | Outpatient (CLI) | payer MEDICARE, BC, SELFPAY ==
--- NOTE | 2023-12-01 13:41 | DI.RAD_ITS ---
Exam(s) XR FOOT LT COMPLETE EXAM: XR FOOT LT COMPLETE CLINICAL HISTORY: Left foot pain,m79.672. TECHNIQUE: 2D digital imaging was performed of the left foot. Three images were obtained. AP, obli que and lateral views were obtained. COMPARISON: CR XR FOOT RT COMPLETE from 12/01/2023 FINDINGS: BONES: No acute fracture is present. No bony destructive lesion is seen. There is an old healed 3rd m etatarsal fracture. There is a small plantar calcaneal spur. There is an enthesophyte at the rug renovator ior calcaneus. JOINTS: No dislocation present. There are hammertoe deformities of the 2nd through 5th toes. SOFT TISSUE: There is soft tissue thickening posterior to the ankle with distortion of the Achilles t endon shadow. Tendinopathy or tendon tear may be considered. MRI should be considered for further e valuation. IMPRESSION: 1. Old healed 3rd metatarsal fracture. No acute fracture or dislocation. 2. Soft tissue thickening posterior to the ankle with distortion of the Achilles tendon shadow. MRI may be considered for further evaluation if clinically appropriate. DATA REPOSITORY: RADIATION DOSE DELIVERED:
--- NOTE | 2023-12-01 13:41 | DI.RAD_ITS ---
Exam(s) XR FOOT RT COMPLETE EXAM: XR FOOT RT COMPLETE CLINICAL HISTORY: Right foot pain,m79.671. TECHNIQUE: 2D digital imaging was performed. Three views. COMPARISON: CR XR FOOT LT COMPLETE from 12/01/2023 FINDINGS: BONES: No acute fracture is present. No bony destructive lesion is seen. Heel spurs. JOINTS: No dislocation present. Pes planus. Degenerative changes in the intertarsal and tarsal meta tarsal joint as well as 1st MTP joint. Hammertoe deformities. SOFT TISSUE: Swelling greater dorsally. IMPRESSION: No acute bony abnormality. Degenerative changes. DATA REPOSITORY: RADIATION DOSE DELIVERED:
== END ==
PROVIDERS: PCP Family Medicine; Visit Provider Podiatrist
DX: M79.671 Pain in right foot (principal); M79.672 Pain in left foot
CPT/HCPCS: 73630

== ENCOUNTER → 2023-12-08 12:21 | Outpatient (BNVA) | payer MEDICARE, BC, SELFPAY | PROVIDERS: PCP Family Medicine; Referring Provider Family Medicine; Visit Provider Psychiatry & Neurology Neurology | DX: M96.1 Postlaminectomy syndrome, not elsewhere classified (principal); G89.29 Other chronic pain; R26.0 Ataxic gait; G62.9 Polyneuropathy, unspecified | CPT/HCPCS: 99214 ==

== ENCOUNTER → 2023-12-16 13:19 | Outpatient (BNVA) | payer MEDICARE, BC, SELFPAY | PROVIDERS: PCP Family Medicine; Referring Provider Family Medicine; Visit Provider Podiatrist | DX: Z87.898 Personal history of other specified conditions; G25.81 Restless legs syndrome; L60.3 Nail dystrophy; M25.571 Pain in right ankle and joints of right foot; I87.2 Venous insufficiency (chronic) (peripheral); F17.200 Nicotine dependence, unspecified, uncomplicated; M19.072 Primary osteoarthritis, left ankle and foot; R09.89 Other specified symptoms and signs involving the circulatory and respiratory systems; L65.9 Nonscarring hair loss, unspecified; R20.8 Other disturbances of skin sensation; L60.8 Other nail disorders; R23.8 Other skin changes; R60.0 Localized edema | CPT/HCPCS: 11721; 20600; J0702; J1100 ==

== ENCOUNTER → 2024-01-01 04:03 | Outpatient (CLI) | payer MEDICARE, BC, SELFPAY ==
--- NOTE | 2024-01-01 08:00 | DI.MRI_ITS ---
Exam(s) MR THORACIC SPINE WO EXAM: MR THORACIC SPINE WO CLINICAL HISTORY: new gait ataxia, R26.0 TECHNIQUE: Multiplanar multisequence MRI of the thoracic spine was performed without intravenous con trast. COMPARISON: MR MR BRAIN WO from 10/01/2023 FINDINGS: OSSEOUS: There is a mild-moderate scoliosis convex left in the upper-mid thoracic spine. There are n o acute appearing thoracic vertebral fractures. No significant osseous lesions. There is a benign in traosseous hemangioma noted in the left side of T10 vertebral body. Another benign intraosseous kristi ngioma is noted in the right-side of T2 vertebral body. At the T8-T9 level there are Modic type 1 gray b endplate marrow edema findings. No compression fractures. There are no ominous osseous lesions in the thoracic vertebrae. THORACIC SPINAL CORD: There is no abnormal signal in the cervical spinal cord and no evidence of foca l cord atrophy nor focal cord swelling. There is no evidence of syringomyelia nor significant spinal cord dysraphism. There is no evidence of mass at the conus medullaris. The position of the conus me dullaris is at T12-L1 level. SIGNIFICANT INDIVIDUAL LEVEL FINDINGS: At T3-4 level there is mild degenerative anterolisthesis of T3 upon T4.. Canal dimensions are lower normal at this level. Similar findings at T 4-5. Where there is predominately right-sided annular b ulging and an element of right-sided foraminal stenosis. No foraminal stenosis on the left side. At T 5-6 level there is a posterolateral right disc protrusion which extends posteriorly 2 millimeter s and is approximately 7 mm wide. This impresses the right-side of the thecal sac at this level but not truly compressing the spinal cord. This results in mild right-sided foraminal stenosis. There i s no foraminal stenosis on the left side. T7-8: Similar right-sided disc protrusion which indents the thecal sac but not the cord. Central can al dimensions are lower normal. There is no obvious foraminal stenosis at this level. T8-9: Modic type 1 sub endplate marrow edema changes. Anterior osteophytes. At this level or there is a small right-sided disc protrusion also noted which indents the thecal sac but not the spinal cor d. Central canal dimensions are lower normal. No foraminal stenosis evident at this level. T12-L1: Broad relatively symmetrical annular bulging. Central canal dimensions lower normal. No for aminal stenosis. PARASPINAL TISSUES: Multiple benign cysts are noted in both kidneys. These are larger and more promi nent on the left side. Please note the entire kidneys are not included in the field of view. IMPRESSION: 1. Multilevel right-sided disc protrusions as described individually above. These disc protrusions i ndent the thecal sac but not the spinal cord and there is no abnormal signal in the cord, cord swelli ng, nor focal cord atrophy. 2. Benign-appearing intraosseous hemangiomas are noted in the T2 and T10 vertebral bodies. There are no ominous osseous lesions. No compression fractures. DATA REPOSITORY:
== END ==
PROVIDERS: PCP Family Medicine; Visit Provider Psychiatry & Neurology Neurology
DX: R26.0 Ataxic gait (principal); M51.34 Other intervertebral disc degeneration, thoracic region
CPT/HCPCS: 36415; 82390; 82525; 72146; 83519; 83520; 84425; 84446; 86038; 86256

== ENCOUNTER 2024-01-01 05:12 | Outpatient (CLI) | payer MEDICARE, BC, SELFPAY ==
[2024-01-02 12:54] LABS: ANA Interpretation Positive (Negative); ANA Titer Pattern 1:160 Homogeneous
[2024-01-03 11:19] LABS: Copper, Serum 82 mcg/dL (77-206)
[2024-01-03 11:41] LABS: Ceruloplasmin 22.8 mg/dL
[2024-01-04 15:30] LABS: Vitamin E, Serum 13.3 mg/L (5.5 - 17.0)
[2024-01-08 10:20] LABS: AGNA-1 Negative (Negative); ANNA-1 Negative (Negative); ANNA-2 Negative (Negative); ANNA-3 Negative (Negative); IFA Notes None.; PCA-1 Negative (Negative); PCA-2 Negative (Negative); PCA-Tr Negative (Negative)
[2024-01-09 07:53] LABS: Thiamine (Vitamin B1), WB 162 nmol/L (70-180)
== END 2024-01-01 05:13 | disposition home or self-care (01) ==
LOC: LBO 05:12
PROVIDERS: PCP Family Medicine; Visit Provider Psychiatry & Neurology Neurology
DX: E83.00 Disorder of copper metabolism, unspecified; R26.0 Ataxic gait
CPT/HCPCS: 36415; 82390; 82525; 83519; 83520; 84425; 84446; 86038; 86256

== ENCOUNTER → 2024-02-09 13:02 | Outpatient (BNVA) | payer MEDICARE, BC, SELFPAY | PROVIDERS: PCP Family Medicine; Referring Provider Family Medicine; Visit Provider Psychiatry & Neurology Neurology | DX: M96.1 Postlaminectomy syndrome, not elsewhere classified (principal); G62.9 Polyneuropathy, unspecified; G89.29 Other chronic pain; R26.0 Ataxic gait | CPT/HCPCS: 99214 ==

== ENCOUNTER 2024-03-10 01:24 | Outpatient (CLI) | payer MEDICARE, BC, SELFPAY ==
--- NOTE | 2024-03-10 | DI.CT_ITS ---
Exam(s) CT CHEST/ABD/PEL W EXAM: CT CHEST/ABD/PEL W CLINICAL HISTORY: C18.7 CA of sigmoid colon TECHNIQUE: Imaging Protocol: Axial computed tomography images with coronal and sagittal reformatted images were created and reviewed CONTRAST MATERIAL: Intravenous: Omnipaque 350 contrast volume:100 mL Oral: Yes COMPARISON: CT CT ABDOMEN PELVIS W from 03/07/[address] CHEST PE CTA from 09/16/2023 FINDINGS: CHEST: Tracheobronchial tree: Patent where visualized. Pulmonary parenchyma: No consolidation or dominant measurable mass. Mild pulmonary fibrosis. No pulm onary nodules. Visualized thyroid gland: Unremarkable. Mediastinum and Lesly: No dominant adenopathy or fluid collection. The esophagus is unremarkable. Pleura: No effusion or pneumothorax. Heart: Cardiomegaly. Coronary artery calcifications are present. No pericardial effusion. Pulmonary arteries: No pulmonary emboli are identified. Aorta: Thoracic aorta non-dilated. No evidence of dissection. Atherosclerotic calcification is prese nt. Lymph nodes: Within normal limits. Soft tissues: There is mild muscular fatty atrophy present. Bones:Within normal limits for the patient's age. The patient has a left shoulder replacement. Ther e are marked degenerative changes seen at the right glenohumeral joint. No aggressive osseous lesion s are present. ABDOMEN: Liver: Normal density. No measurable mass. Portal, Superior Mesenteric, and Splenic Veins: Unremarkable. Gallbladder and Biliary Tract: No cholelithiasis. The common duct is again seen to measure 1.1 cm. This is unchanged. Pancreas: Normal density, no abnormal calcifications or inflammatory process. There is a stable fat d ensity lesion in the body of the pancreas. No suspicious pancreatic masses are seen. Spleen: Normal. Adrenals: No masses seen. Kidneys: Normal size, contour and axis. No radiodense stones or obstructive uropathy. Stable bilatera l renal cysts. No follow-up is recommended. Abdominal Aorta: Abdominal portion non-dilated. Atherosclerotic calcification is present. Bowel: There is diverticulosis seen in the colon but no evidence of acute diverticulitis. There is a moderate amount of stool seen throughout the colon. No evidence of bowel wall thickening or bowel o bstruction is present. Appendix is unremarkable. Peritoneal Cavity: No ascites, collection or mesenteric inflammatory response. No free air. Lymph Nodes: Within normal limits. Bones: Within normal limits for the patient's age. The patient has a left total hip replacement whic h causes some artifact in the pelvis. There is grade 1 spondylolisthesis of L4 on L5 and L5 on S1. Posterior spinal rods and pedicle screws are seen extending from L4 through S1. No aggressive osseou s lesions are identified. Soft Tissues: There is a fat containing umbilical hernia. PELVIS: Bladder: There is limited visualization of the urinary bladder due to artifact from the patient's lef t total hip replacement. Reproductive Organs: There is limited visualization of the pelvic reproductive organs secondary to ar tifact from the patient's left hip prosthesis. Lymph Nodes: Within normal limits. Bones: Within normal limits. IMPRESSION: 1. No evidence of metastatic disease in the chest. 2. No evidence of abdominal or pelvic metastatic disease. 3. Incidental findings in the chest, abdomen and pelvis as described above. RADIATION DOSE DELIVERED: Total DLP DATA REPOSITORY: All CT scans at this facility are submitted to the National Radiology Data Registry (NRDR) Dose Index Registry (DIR) with the [employer] (ACR). RADIATION OPTIMIZATION: All CT scans at this facility use at least one of these dose optimization te chniques: automated exposure control; mA and/or kV adjustment per patient size (includes targeted exa ms where dose is matched to clinical indication); or iterative reconstruction.
--- OUTSIDE RECORDS SUMMARY | 2024-03-10 01:26 | XMS_ITS | Continuity of Care Document ---
Author Organization [facility] Ambulatory Clinics Address [address] [place] [address] Care Team Providers Care Human Services Manager Name Role Phone RISHABH MERCEDES Primary Care Physician [phone] Encounter [facility] FIN NBR [id number] Date(s): 12/16/23 - 12/16/23 [facility] Ambulatory Clinics [address] [place], [place] [address] Encounter Diagnosis Osteoarthritis of glenohumeral joint(Discharge Diagnosis) - 12/16/23 Discharge Disposition: Home or Self Care Attending Physician: Emily Topete APRN Referring Physician: RISHABH MERCEDES Problem List Condition Confirmation Course Effective Dates Status Health St atus Informant Abdominal pain Confirmed Active Abnormal auditory perception Confirmed Active Ankle instability Confirmed Active Ataxia Confirmed Active Bilateral tinnitus Confirmed Active Cataract Confirmed Active Chronic low back pain Confirmed Active Chronic obstructive lung disease Confirmed Active Diabetes mellitus Confirmed Active Diastasis of muscle Confirmed Active Falls Confirmed Active Fibromyalgia Confirmed Active Increased urinary frequency Confirmed Active Nicotine dependence Confirmed Active Localized pain of knee joint Confirmed Active Spinal stenosis of lumbar region Confirmed Active Patient Care team information Care Team Personnel Name: RISHABH MERCEDES Position: No Access Member Role: Primary Care Physician Address: Address: [address] [place] [phone] Care Team Related Persons Name: MAZIN MERRILL Name: PATRICK MALAGON Name: RUPESH LOPEZ
--- OUTSIDE RECORDS SUMMARY | 2024-03-10 01:26 | XMS_ITS ---
Author Organization Unknown Address [address] [place] [phone] Phone Care Team Providers Care Master Baker Name Role Phone MIKY MALAGON Attending Unavailable DAREN Mathews Primary Unavailable Social History Type Status Start Date End Date Code Code Syst em Smoking History Current every day smoker [id number] SNOMED CT Smoking History Unknown if ever smoked [id number] Sex Female Hospital Discharge Instructions Should you have any questions prior to discharge, please contact a member of your healthcare team. If you have left the hospital and have any questions, please contact your primary care physician. Reason For Referral No Data Found Plan of Treatment X-RAY 07/03/2021 Encounters Encounter Diagnosis Start Date Code Code Sys tem Other abnormalities of gait and mobility 09/22/2023 SNOMED-CT Personal Care Team Section Performer Name Performer Role Active Date Inactive Da te
--- OUTSIDE RECORDS SUMMARY | 2024-03-10 01:26 | XMS_ITS ---
Author Organization Unknown Address [address] [place] [phone] Phone Care Team Providers Care Procurement Engineer Name Role Phone DAREN Mathews Attending Unavailable Social History Type Status Start Date End Date Code Code Syst em Smoking History Current every day smoker [id number] SNOMED CT Smoking History Unknown if ever smoked [id number] Sex Female Hospital Discharge Instructions [...] tem Other abnormalities of gait and mobility 01/02/2022 SNOMED-CT Personal Care Team Section Performer Name Performer Role Active Date Inactive Da te
--- OUTSIDE RECORDS SUMMARY | 2024-03-10 01:26 | XMS_ITS ---
Author Organization Unknown Address [address] [place] [phone] Phone Care Team Providers Care Oracle Ebs Architect Name Role Phone WESTIMALTAF Mathews Attending Unavailable UNLISTED PROVIDER - REQUESTED Primary Un available Results XR EXAM NECK SPINE 4-5VWS - Completed: 07/03/2021 15:51 LOINC: CERVICAL SPINE - 5 VIEWS:The re is no evidence of acute fracture. There is mild degenerative anterolisthesis of C3 upon C4. This is related to facet arthropathy. Disc space height at this level is normal. There is, however, moderate disc space narrowing at C4-5 level and severe disc space narrowing at C5-6 and C6-7 levels. Multilevel facet arthropathy. The amount of listhesis on flexion and extension is not grossly different. On the oblique views, there are no prominent Luschka joint osteophytes. No cervical ribs evident. Vascular calcification is noted in the carotid artery in the left side of the neck indicating atherosclerotic involvement. IMPRESSION:Multilevel chronic degenerative disc disease. Also facet arthropathy. Dictated by: SOY ROSENTHAL MD Transcribed by: ESAU 07/04/21/10:37 D Saturday, July 03, 2021 5:10:15 PM [id number] Electronically Reviewed and Signed By: NETTIE ROSENTHAL MD 07/04/21 13:10 Copy for: 185 [facility] IN[facility] Social History Type Status Start Date End Date Code Code Syst em Smoking History Current every day smoker [id number] SNOMED CT Smoking History Unknown if ever smoked [address] Sex Female Hospital Discharge Instructions Should you have any questions prior to discharge, please contact a member of your healthcare team. If you have left the hospital and have any questions, please contact your primary care physician. Reason For Referral No Data Found Plan of Treatment X-RAY 07/03/2021 Encounters Encounter Diagnosis Start Date Code Code Sys tem Spondylolisthesis, cervical region 07/03/2021 SNOMED-CT Personal Care Team Section Performer Name Performer Role Active Date Inactive Da te
--- OUTSIDE RECORDS SUMMARY | 2024-03-10 01:26 | XMS_ITS | Continuity of Care Document ---
Author Organization [facility] Address [address] [place] [phone] Care Team Providers Care Laborer Carpentry Dock Name Role Phone RISHABH MERCEDES Primary Care Physician [phone] Encounter [facility] FIN NBR [id number] Date(s): 12/16/23 - 12/16/[address] [id number] Encounter Diagnosis Pain in left shoulder(Discharge Diagnosis) - 12/16/23 Discharge Disposition: Home or Self Care Attending Physician: Emily Topete APRN Admitting Physician: Emily Topete APRN Referring Physician: Emily Topete APRN Problem List Condition Confirmation Course Effective Dates [...] Member Role: Primary Care Physician Address: Address: [address] [place] [phone] Care Team Related Persons Name: MAZIN MERRILL Name: PATRICK MALAGON Name: RUPESH LOPEZ
--- OUTSIDE RECORDS SUMMARY | 2024-03-10 01:27 | XMS_ITS | Encounter Summary ---
[place] [address] Care Team Providers Care Machine Tank Operator Name Role Phone Wilma Nance MD Primary Care Provider Encounter Details Date Type Department Care Team (Late st Contact Info) Description 05/29/2023 Telephone Hematology/Oncology at [address] [phone] Marlys Claudio Social History Tobacco Use Types Packs/Day Years Used Date Smoking Tobacco: Every Day Cigarettes 1 15 Smokeless Tobacco: Never Comments:Restarted trying to stop now 02/05/23-really trying to quit, part of an online program Alcohol Use Standard Drinks/Week Comments Yes 3 (1 standard drink = 0.6 oz pur e alcohol) Daily per [facility] note Sex and Gender Information Value Date Recorded Sex Assigned at Not on file Gender Identity Not on file Sexual Orientation Not on file documented as of this encounter Miscellaneous Notes * Telephone Encounter - Marlys Braden - 05/29/2023 2:20 PM EDT Left Shiloh a voicemail to see if she would like to move her appointment on 06/06 to tomorrow. I let her know we have availability to get her in early, and asked she return a call to the office to confirm. documented in this encounter Plan of Treatment Upcoming Encounters Date Type Department Care Team (Late st Contact Info) Description 03/12/2024 1:00 PM EDT Office Visit Hematology/Oncology at [address] [phone] Sony Lyons MD [facility] [place] [address] Dottie Lira APRN [address] [place] [address] DR HEMATOLOGY AND ONCOLOGY [place], [place] [phone] 03/19/2024 2:30 PM EDT Office Visit Dermatology at [place] [address] [place] [phone] Sam Johns MD [address], [place] [address] documented as of this encounter Visit Diagnoses Not on filedocumented in this encounter Care Teams Machine Tank Operator Relationship Specialty Start Date End Date Wilma Nance MD [address] [place] [address] PCP - General Family Medicine 09/18/17 documented as of this encounter
--- OUTSIDE RECORDS SUMMARY | 2024-03-10 01:27 | XMS_ITS | Referral Summary ---
Author Organization [facility] Address [address] [place] [address] Care Team Providers Care Division Operations Manager Name Role Phone Wilma Nance MD Primary Care Provider [phone] Allergies No known active allergies Medications Medication Sig Dispensed Refills Start Date End Date Status fentaNYL 25 MCG/HR Patch [address] onto the skin every 72 hours 0 Active lisinopril 20 MG Tab Take by mouth daily 0 Active levoTHYROxine 175 MCG Tab Take by mouth daily 0 Active sertraline 100 MG Tab Take by mouth daily 0 Active naproxen 500 MG Tab Take 550 mg by mouth 2 times daily (with meals) 0 Active Multiple Vitamin (MULTIVITAMIN) Tab Take 1 Tab by mouth daily 0 Active Immunizations Name Administration Dates Next Due Tdap Vaccine Age 7+ 06/21/2017 Social History Tobacco Use Types Packs/Day Years Used Date Smoking Tobacco: Every Day Cigarettes 1 Smokeless Tobacco: Never Alcohol Use Standard Drinks/Week Comments Yes 4 (1 standard drink = 0.6 oz pur e alcohol) daily drinker Substance Use Types Use/Week Comments Yes Opiates Sex and Gender Information Value Date Recorded Sex Assigned at Not on file Gender Identity Not on file Sexual Orientation Not on file Last Filed Vital Signs Vital Sign Reading Time Taken Comments Blood Pressure 139/73 06/21/2017 2:57 PM EST Pulse 81 06/21/2017 2:51 PM EST Temperature 36.9 ??C (98.4 ??F) 06/21/2017 2:51 PM ES T Respiratory Rate 18 06/21/2017 2:51 PM EST Oxygen Saturation 97% 06/21/2017 2:51 PM EST Inhaled Oxygen Concentration 97% 06/21/2017 2 :51 PM EST Weight 108.9 kg (240 lb) 06/21/2017 2:51 PM EST Height 160 cm (5' 2.99) 06/21/2017 2:51 PM EST Body Mass Index 42.52 06/21/2017 2:51 PM EST Functional Status Functional Status Response Date of Assessment Stat us Are you deaf or do you have serious difficulty hearing? No 06/21/2017 Active Are you blind or do you have serious difficulty seeing, even when wearing glasses? No 06/21/2017 Activ e Do you have serious difficul ty walking or climbing stairs? (5 years old or older) No 06/21/2017 Active Do you have difficulty dress ing or bathing? (5 years old or older) No 06/21/2017 Active Because of a physical, menta l, or emotional condition, do you have difficulty doing errands alone such as visiting a doctor's office or shopping? (15 years old or older) No 06/21/2017 Active Cognitive Status Response Date of Assessment Statu s Because of a physical, menta l, or emotional condition, do you have serious difficulty concentrating, remembering, or making decisions? (5 years old or older) No 06/21/2017 Active Plan of Treatment Not on file Insurance Payer Benefit Plan / Group Subscriber ID Effective Dates Phone Address Type MEDICARE MEDICARE A AND B [id number] 2008-Pres ent [address] [place] [address] Medicare BCBS [employer] [id number] 2013-Prese nt [address] [place] [address] Care Teams Division Operations Manager Relationship Specialty Start Date End Date Wilma Nance MD [address] [place] [address] PCP - General 06/21/17
--- OUTSIDE RECORDS SUMMARY | 2024-03-10 01:27 | XMS_ITS | Encounter Summary ---
Author Organization [facility] Address [address] [place] [address] Care Team Providers Care Fur Grader Name Role Phone Unavailable Primary Care Provider Unavailabl e Encounter Details Date Type Department Care Team (Late st Contact Info) Description 02/23/2008 Before PRISM Converted Visit (Maple) [facility] - Maple conversion [address] [place] [address] Cristy Son, [facility] [address] [place], [place] [phone] Social History Tobacco Use Types Packs/Day Years Used Date Smoking Tobacco: Never Assessed Sex and Gender Information Value Date Recorded Sex Assigned at Not on file Gender Identity Not on file Sexual Orientation Not on file documented as of this encounter Plan of Treatment Not on file documented as of this encounter Procedures Procedure Name Priority Date/Time Associated Diagnosis Comments CYTOPATHOLOGY Routine 02/23/2008 0:00 EDT documented in this encounter Results * CYTOPATHOLOGY (02/23/2008 0:00 EDT) Pathology Report: CYTOPATHOLOGY REPORT ? Reports generated via electronic interface contain original data; ? however they are lacking the format of the original report. ? Caution should be taken when reading/interpreti ng unformatted reports. ? Name: ? SHILOH ANDERSON ? Accession #: ? [id number] ? : ? 1945 (Age: 62) ??F ?Collect Date: ? 02/23/2008 ? Location: ? [facility] ? Receive Date: ? 02/24/2008 ? Provider: ?CRISTY SON NP ? Copy to: ? Specimen/Source: ?ThinPrep Pap Test, Vagina/Cervix, processed on Cytyc ? ThinPrep Imaging System, with manual evaluation ? Last Menstrual Period: ? 1995 ? SPECIMEN ADEQUACY ? Satisfactory for Evaluation ? - transformation zone component absent ? GENERAL CATEGORIZATION ? Negative for Intraepithelial Lesion or Malignancy ? Document reviewed and electronically signed by: ? Prabhu Luque. Michael, CT(ASCP) ? Report Date: ??02/29/2008 07:53 ? End of Report ? [facility] 02/23/2008 02/24/2008 Cristy Son GEODETIC TECHNICIAN PATHOLOGY ORDERABLES [facility] [address] [place] [address] documented in this encounter Visit Diagnoses Not on filedocumented in this encounter
--- OUTSIDE RECORDS SUMMARY | 2024-03-10 01:27 | XMS_ITS | Encounter Summary ---
[place] [address] Care Team Providers Care Reinforcing Metal Worker Name Role Phone Wilma Nance MD Primary Care Provider [phone] Encounter Details Date Type Department Care Team (Late st Contact Info) Description 06/11/2023 1:30 PM EST Office Visit Hematology/Oncology at [address] [phone] Dottie Lira [address] HEMATOLOGY [place] [address] Malignant neoplasm of sigmoid colon; Abnormal CT of the abdomen Social History Tobacco Use Types Packs/Day Years [...] on file documented as of this encounter Last Filed Vital Signs Vital Sign Reading Time Taken Comments Blood Pressure 152/78 06/11/2023 1:46 PM EST Pulse 61 06/11/2023 1:46 PM EST Temperature 36.7 ??C (98 ??F) 06/11/2023 1:46 PM EST Respiratory Rate 18 06/11/2023 1:46 PM EST Oxygen Saturation 95% 06/11/2023 1:46 PM EST Inhaled Oxygen Concentration - - Weight 105.7 kg (233 lb) 06/11/2023 1:46 PM EST Height 157.5 cm (5' 2.01) 06/11/2023 1:46 PM ES T Body Mass Index 42.61 06/11/2023 1:46 PM EST documented in this encounter Progress Notes * Dottie Lira, MANAGER PUBLIC - 06/11/2023 1:30 PM EST Subjective Patient ID: Shiloh Anderson is 77 y.o. Problem List: 1. Colon cancer, transverse colon, pT3, N0, dMMR A. Screening Colonoscopy 04/17/22 (to cecum) - ulcerated mass at 60 cm, biopsied; manzo diverticulosis Path - 04/17/2022. Colon, 60 CMS, Mass, biopsy: Invasive moderately differentiated adenocarcinoma. Per submitted outside pathologic report, immunostains (not submitted for review) showed loss of MLH1 and PMS2 and retained expression of MSH2 and MSH6 proteins in tumor cells. B. CT c/a/p 04/29/22 - Impression: Severe diverticulosis. No colonic mass is visible. No evidence of metastatic disease in the chest, abdomen or pelvis CEA - 2.8 C. 05/08/22 - Laparoscopic left hemicolectomy (Dr. Carrillo) Path - Specimen Procedure: Transverse colectomy Tumor Tumor Site: Transverse colon Histologic Type: Mucinous adenocarcinoma Histologic Grade: G2, moderately differentiated Tumor Size: 1.8 Centimeters (cm) Tumor Extent: Invades through muscularis propria into pericolorectal tissue Macroscopic Tumor Perforation: Not identified Lymphovascular Invasion: Not identified Perineural Invasion: Not identified Number of Tumor Buds: 0 per 'hotspot' field Type of Polyp in which Invasive Carcinoma Arose: None identified Treatment Effect: No known presurgical therapy Margins Margin Status for Invasive Carcinoma: All margins negative for invasive carcinoma Closest Margin(s) to Invasive Carcinoma: Proximal; Distal; Radial (circumferential) or mesenteric Margin Status for Non-Invasive Tumor: All margins negative for high-grade dysplasia / intramucosal carcinoma and low-grade dysplasia Regional Lymph Nodes Regional Lymph Node Status: All regional lymph nodes negative for tumor Number of Lymph Nodes Examined: 13 Tumor Deposits: Not identified Pathologic Stage Classification (pTNM, AJCC 8th Edition) pT Category: pT3 pN Category: pN0 [facility] A biopsy was performed and read elsewhere and reviewed: [id number] part B Additional Findings Additional Findings: None identified D. CT a/p 03/07/23 - Impression: Severe diverticulosis present in the sigmoid. No evidence of diverticulitis or obstruction. No evidence of mass or metastatic disease. Stable mild biliary dilatation CT chest 05/16/23 - Impression: 1. No evidence of significant lung nodules. No infiltrates nor pleural effusions. No intrathoracic adenopathy 2. Slight thickening of peripheral interlobular septae. May indicate an element of interstitial fibrosis 3. Pancreatic cyst versus invagination of fat partially visualized on this study at the level the pancreatic body. Can be further studied with pancreatic protocol MRI. 2. History of basal cell carcinoma 3. Hypothyroidism 4. Depression 5. Fibromyalgia 6. Hypertension 7. Bilateral carpal tunnel syndrome S/p release 8. GERD 9. SUGEY 10. Spinal stenosis, s/p lumbar fusion 11. HTN 12. 1st degree AV block 13. COPD 14. Cataracts 15. Peripheral neuropathy 16. RLS 17. S/p JOSSE 18. S/p TKA 19. S/p lumbar laminectomy 20. Chronic lower back pain 21. S/p bilateral shoulder surgery 22. Genetic testing 04/2023 - Result: [employer] CancerNext-Expanded Panel showed no mutation was detected. This means that Shiloh does notcarry a mutation in the genes detectable by this test. The following 77 genes were analyzed: AIP, ALK, APC, MARIO, BAP1, BARD1, BLM, BMPR1A, BRCA1, BRCA2, BRIP1, CDC73, CDH1, CDK4, CDKN1B, CDKN2A, CHEK2, DICER1, FANCC, FH, FLCN, GALNT12, KIF1B, LZTR1, MAX, MEN1, MET, MLH1, MSH2, MSH6, MUTYH, NBN, NF1, NF2, NTHL1, PALB2, PHOX2B, PMS2, POT1, WSRXN4R, PTCH1, PTEN, RAD51C, RAD51D, RB1, RECQL, RET, SDHA, SDHAF2, SDHB, SDHC, SDHD, SMAD4, SMARCA4, SMARCB1, SMARCE1, STK11, SUFU, SPXV312, TP53, TSC1, TSC2, VHL and XRCC2 (sequencing and deletion/duplication); AXIN2, CTNNA1, EGFR, EGLN1, HOXB13, KIT, MITF, MSH3, PDGFRA, POLD1 and POLE (sequencing only); EPCAM and GREM1 (deletion/duplication only). A variant of uncertain significance (VUS) was detected in the BRCA1 gene, specifically c.2534T>G(p.I845R). SUSAN Matamoros is seen in f/u of colon cancer. The history is summarized above. She is by herself in clinic today. She reports she is doing well, other than Having a big fall yesterday and hit her head on a door casing. Was seen in the ER and given stitches, they also did a scanof her head and per the patient no bleed was seen. She has long standing low back pain for which she is on a fentanyl patch and immediate release morphine. Her QOL has been better on the fentanyl patch as this allows her to be up doing more. 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 This is painful and extends to just above her knee. She is followed Dr. Abdalla in [place]. Her incision is well healed. Her bowels are better than they were prior to the surgery. She goes once per day, no constipation or diarrhea, no BRBPR. She has felt less fatigued as well. Her appetite is good. Her weight continues to trend downward, intentionally. Soc Hx: Lives in [place], [place] Tob - Current (quits and restarts frequently) - she plans to try quitting again with the help of nicotine replacement and counseling. 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 Review of Systems Constitutional: Negative. HENT: Negative. Respiratory: Negative. Cardiovascular: Negative. Gastrointestinal: Negative. Genitourinary: Negative. Musculoskeletal: Negative. Skin: Positive for wound (fall yesterday, stiches and dermabond in place above L eye). Neurological: Positive for weakness (recent fall). Psychiatric/Behavioral: Negative. Objective Physical Exam Vitals reviewed. Constitutional: General: She is not in acute distress. HENT: Head: Normocephalic and atraumatic. Eyes: General: No scleral icterus. Cardiovascular: Rate and Rhythm: Normal rate. Pulmonary: Effort: Pulmonary effort is normal. No respiratory distress. Abdominal: Palpations: Abdomen is soft. Comments: Abdominal incision well healed Musculoskeletal: General: No swelling. Skin: General: Skin is warm and dry. Coloration: Skin is not jaundiced. Findings: No rash. Neurological: General: No focal deficit present. Mental Status: She is alert. Motor: Weakness present. Psychiatric: Mood and Affect: Mood normal. Labs: (05/16/23) WBC/ANC - 6., Hgb/Hct - 12.8/49.4, Plts - 191,000. BUNCr - 32/1.0, glucose 109, remainder of CMP otherwise unremarkable CEA 05/16/23 3.2 02/05/23 3.6 10/28/22 3.7 04/29/22 2.8 Assessment and Plan Shiloh Anderson is 77 y.o., seen in f/u of colon cancer, sigmoid, pT3N0, dMMR. Screening colonoscopy by Dr. Carrillo 04/17/22 - ulcerated mass was seen at 60 cm and biopsied. Path - invasive mod diff adenocarcinoma with loss of staining for MLH1 and PMS2. Staging CT c/a/p - no evidence of metastatic disease and the CEA was 2.8. 05/08/22 - laparoscopic left hemicolectomy. 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 The margins of resection were negative. There was noLVI or PNI. Tumor budding score was 0. Adjuvant therapy was not recommended. A restaging CT a/p from 02/[address] chest from 05/16/23 are negative for metastatic disease. The report from the chest CT mentions pancreatic cyst versus invagination of fat partially visualized and suggests a pancreatic protocol CT. This finding appears to have been present on CT's dating back to at least 2016. Dr. Lyons spoke with the radiologist, Dr. Gillette, about this. He says it may be slightly larger than on the scan years ago. 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 He feels an MRI could characterize it further. I spoke with Shiloh about this. She is agreeable to an MRI and feels like it wouldgive her some peace of mind. I will order this and have her return to discuss. She is due for her next colonoscopy the first week of June, she tells me they are also doing anEGD. We will arrange for her MRI around this time as well, and have her return to clinic after bothprocedures are done. She will not need labs for that visit. We would plan her next surveillance CT in fall 2023, approximately one year from the most recent one. She met with the genetic counselors and her testing did not reveal an underlying genetic cause of the history of colon cancer. documented in this encounter Plan of Treatment Upcoming Encounters Date Type Department Care Team (Late st Contact Info) Description 03/12/2024 1:00 PM EDT Office Visit Hematology/Oncology at [address] [phone] Sony Lyons MD [facility] [place] [address] Dottie Lira APRN [address] [place] [address] DR HEMATOLOGY [place] [address] 03/19/2024 2:30 PM EDT Office Visit Dermatology at [place] [address] [facility] [place] [address] Sam Johns MD [address] [facility], [place] [address] documented as of this encounter Visit Diagnoses Diagnosis Malignant neoplasm of sigmoid colon Abnormal CT of the abdomen Nonspecific (abnormal) findings on radiological and other examination of abdominal area, including retroperitoneum documented in this encounter Care Teams Reinforcing Metal Worker Relationship Specialty Start Date End Date Wilma Nance MD [address] [place] [address] PCP - General Family Medicine 09/18/17 documented as of this encounter
--- OUTSIDE RECORDS SUMMARY | 2024-03-10 01:27 | XMS_ITS | Encounter Summary ---
Author Organization [facility] [place] [address] Care Team Providers Care Inspector Bullet Slugs Name Role Phone Wilma Nance MD Primary Care Provider [phone] Reason for Visit * Reason Onset Date Comments Results 04/30/2023 Encounter Details Date Type Department Care Team (Late st Contact Info) Description 04/30/2023 Telephone Hematology [place] [address] Eulalio Garza [facility] Hematology/[place] [address] Results Social History Tobacco Use Types Packs/Day Years [...] encounter Miscellaneous Notes * Telephone Encounter - Eulalio Garza LGC - 04/30/2023 10:10 AM EDT This test result was discussed with the patient by phone. A copy of the test results have been scanned in the medical record and sent to Shiloh. A summary of the results is provided below. Please beadvised that [place] law requires that all health care workers respect the confidentiality ofthis information and not pass it along to other health care providers, insurance companies, or individuals without the written permission of the patient. The [facility]amil[facility] Cancer Program welcomes any questions about these matters. Our phone number is: [phone]. On 12/16/2022 Shiloh was seen for genetic counseling and subsequently underwent genetic testing for a hereditary predisposition to cancers in eight major organ systems including breast, gynecologic,gastrointestinal, endocrine, genitourinary, skin, brain/nervous system, sarcoma and hematologic. Following are the results of this test. Result: [employer] CancerNext-Expanded Panel showed no mutation was detected. [...] NF1, NF2, NTHL1, PALB2, PHOX2B, PMS2, POT1, NAABY7H, PTCH1, PTEN, RAD51C, RAD51D, RB1, RECQL, RET, SDHA, SDHAF2, SDHB, SDHC, SDHD, SMAD4, SMARCA4, SMARCB1, SMARCE1, STK11, SUFU, XUVO031, TP53, TSC1, TSC2, VHL and XRCC2 (sequencing and deletion/duplication); AXIN2, CTNNA1, EGFR, EGLN1, HOXB13, KIT, MITF, MSH3, PDGFRA, POLD1 and POLE (sequencing only); EPCAM and GREM1 (deletion/duplication only). A variant of uncertain significance (VUS) was detected in the BRCA1 gene, specifically c.2534T>G(p.I845R). Interpretation: This test did not identify an underlying genetic cause for the personal history of colon cancer or family history of thyroid, skin, and other cancers. Possible explanations for this negative test result include: Shiloh's cancer and the cancer in her family may be due to non genetic, environmental causes. There could be a mutation in Shiloh's family that Shiloh did not inherit. There could be mutations in other cancer genes not included in this test, or in genes yet to be discovered. There is a very small chance that a pathogenic variant/mutation could be missed due to limitations in the testing. Based on these results, Shiloh's children do not need genetic testing for hereditary cancer risk due to their maternal family history. If their father's family history is of concern, we would recommend further evaluation of that side of the family by a genetic counselor. Additional genetic testing for Shiloh is not recommended at this time. Variant of Uncertain Significance (VUS) It is unclear at this time whether the BRCA1 VUS identified in Shiloh is a cancer-associated mutation or a benign change in the gene with no increased cancer risks. [facility] is continually collecting and analyzing their data, in an effort to reclassify these variants as either cancer-causingmutations or benign changes. It is important to remember that a vast majority of variants of uncertain significance are normal, benign changes in the gene. We will be contacted by the laboratory, in the future, if a reclassification is made and we would then notify Shiloh. It is important that Shiloh's phone number and mailing address stay updated in the [facility] system, in order for us to reach her in the future, should an amended reportbe issued. Family members should NOT be tested for the variant of uncertain significance identifiedin Shiloh in order to find out their own cancer risks. Screening Recommendations Based on genetic test results and personal and/or family history, we recommend: Breast cancer screening Clinical breast exams and imaging as recommended by Shiloh's oncologists. Be aware of any breast changes and share concerns with primary care provider Annual clinical breast exams Annual mammograms/Biennial or annual tomosynthesis (3D mammogram) Gynecologic cancer screening Pelvic exams and/or Pap smears as recommended by Shiloh's press operator printing or primary care provider. Colon cancer screening Continue with periodic colonoscopy screening as recommended by Shiloh's meat and seafood manager. Skin cancer screening Skin cancer screening and sun protection are important for everyone, regardless of genetic predisposition. Consideration of routine dermatologic/skin exams, as recommended by Shiloh's primary care provideror manager government. documented in this encounter Plan of Treatment Upcoming Encounters Date Type Department Care Team (Late st Contact Info) Description 03/12/2024 1:00 PM EDT Office Visit Hematology/Oncology at [address] [phone] Sony Lyons MD [facility] [place] [address] Dottie Lira APRN [address] [place] [address] DR HEMATOLOGY AND ONCOLOGY [place], [place] [address] 03/19/2024 2:30 PM EDT Office Visit Dermatology at [place] [address] [facility] [place] [phone] aSm Johns MD [address], [address] [address] documented as of this encounter Visit Diagnoses Not on filedocumented in this encounter Care Teams Inspector Bullet Slugs Relationship Specialty Start Date End Date Wilma Nance MD [address] [place] [address] PCP - General Family Medicine 09/18/17 documented as of this encounter
--- OUTSIDE RECORDS SUMMARY | 2024-03-10 01:27 | XMS_ITS | Encounter Summary ---
Author Organization [facility] Address [address] [place] [address] Care Team Providers Care Fender Mechanic Apprentice Name Role Phone Cristy Al NP Primary Care Provider [phone] Encounter Details Date Type Department Care Team (Late st Contact Info) Description 10/28/2022 Lab Requisition [facility] Pathology & Laboratory Medicine - [address] [phone] Outr Resulting Lab, Provider Social History Tobacco Use Types Packs/Day Years Used Date Smoking Tobacco: Never Assessed Interpersonal Safety Answer Date Record ed Physically Hurt Never 02/27/2020 Verbally Threaten Not on file 02/27/2020 Sex and Gender Information Value Date Recorded Sex Assigned at Not on file Gender Identity Not on file Sexual Orientation Not on file documented as of this encounter Plan of Treatment Not on file documented as of this encounter Procedures Procedure Name Priority Date/Time Associated Diagnosis Comments CEA Routine 10/28/2022 10:42 EDT documented in this encounter Results * CEA (10/28/2022 10:42 EDT) CEA 3.7 See Note ng/mL 10/28/2022 18:[address] [facility] Comment: % Distribution of CEA (ng/mL): ??0.0 - 2.5 in 98.2% of Nonsmokers and 87.3% of Smokers ??2.6 - 5 in 1.8% of Nonsmokers and 8% of Smokers ??5.1 - 10.1 in 4.7% of Smokers NOTE: Serum CEA concentration should not be interpeted as absolute evidence for the presence or absence of malignant disease. ?? Assayed on Siemens ADVIA Centaur XPT using chemiluminescent technology. ??Values obtained by different assay methods cannot be used interchangeably. Blood VENOUS BLOOD / Unknown 10/28/2022 10:42 EDT 10/28/2022 17:46 EDT Provider Outr Resulting Lab CHEMISTRY & BLOOD GAS ORDERABLES [facility] [address] [place] [address] documented in this encounter Visit Diagnoses Not on filedocumented in this encounter Care Teams Fender Mechanic Apprentice Relationship Specialty Start Date End Date Cristy Al NP [facility] [address] [place] [address] PCP - General 02/21/12 documented as of this encounter
--- OUTSIDE RECORDS SUMMARY | 2024-03-10 01:27 | XMS_ITS | Encounter Summary ---
Author Organization [facility] Address [facility] [place] [address] Care Team Providers Care Research And Development Tester Name Role Phone Wilma Nance MD Primary Care Provider [phone] Encounter Details Date Type Department Care Team (Latest Contact Info) Description 11/14/2023 Travel Social History Tobacco Use Types Packs/Day Years [...] as of this encounter Plan of Treatment Upcoming Encounters Date Type Department Care Team (Late st Contact Info) Description 03/12/2024 1:00 PM EDT Office Visit Hematology/Oncology at [address] [phone] Sony Lyons MD [facility] [place] [address] Dottie Lira APRN [address] [place] [address] DR HEMATOLOGY AND ONCOLOGY [place], [place] [address] 03/19/2024 2:30 PM EDT Office Visit Dermatology at [address] [place] [phone] Sam Johns MD [address] [facility], ANAB[place] A DERMATOLOGY [place], [place] [phone] documented as of this encounter Visit Diagnoses Not on filedocumented in this encounter Care Teams Research And Development Tester Relationship Specialty Start Date End Date Wilma Nance MD [address] [place] [address] PCP - General Family Medicine 09/18/17 documented as of this encounter
--- OUTSIDE RECORDS SUMMARY | 2024-03-10 01:27 | XMS_ITS | Referral Summary ---
Author Organization [facility] Address [address] [place] [address] Care Team Providers Care Financial Manager Name Role Phone MikaelaCristy KUSUM Primary Care Provider [phone] Encounters Date Type Department Care Team Description 01/01/2024 Lab Requisition [facility] Pathology & Laboratory Medicine - [facility] [address] [place] [address] Outr Resulting Lab, Provider from Last 3 Months Social History Tobacco Use Types Packs/Day Years Used Date Smoking Tobacco: Never Assessed Interpersonal Safety Answer Date Record ed Physically Hurt Never 02/27/2020 Verbally Threaten Not on file 02/27/2020 Sex and Gender Information Value Date Recorded Sex Assigned at Not on file Gender Identity Not on file Sexual Orientation Not on file Plan of Treatment Not on file Procedures Procedure Name Priority Date/Time Associated Diagnosis Comments ANTI NUCLEAR AB (LUIS), IFA Routine 01/01/2024 14:14 EDT from Last 3 Months Results * (ABNORMAL) ANTI NUCLEAR AB (LUIS), IFA (01/01/2024 14:14 EDT) LUIS Interpretation Positive(A) Negative 01/02/2024 12:49 EDT [facility] Comment: For titers greater than or equal to 1:160 (except the centromere and nucleolar patterns) it is recommended that specific follow-up autoantibody testing ??(such as for dsDNA and Extractable Nuclear Antigens) be performed on all diffuse and/or speckled patterns NOTE: For add-on testing dsDNA is stable for 7 days refrigerated while Extractable Nuclear Antigens are only stable for 48 hours refrigerated. LUIS Titer and Pattern 1 1:160 Homogeneous 01/02/2024 12:49 EDT [facility] Blood VENOUS BLOOD / Unknown 01/01/2024 14:14 EDT 01/01/2024 21:22 EDT Narrative [facility] - 01/02/2024 12:49 EDT Results were obtained with the [employer] NOVA Lite HEp-2 LUIS Kit by indirect immunofluorescence. Provider Outr Resulting Lab IMMUNOLOGY A ND SEROLOGY ORDERABLES [facility] [address] [place] [address] from Last 3 Months Care Teams Financial Manager Relationship Specialty Start Date End Date Cristy Al NP [facility] [address] [place] [address] PCP - General 02/21/12
--- OUTSIDE RECORDS SUMMARY | 2024-03-10 01:27 | XMS_ITS | Encounter Summary ---
Author Organization [facility] [place] [address] Care Team Providers Care Trimmer Meat Name Role Phone Wilma Nance MD Primary Care Provider [phone] Encounter Details Date Type Department Care Team (Late Contact Info) Description 03/07/2023 Ancillary Procedure [place] [phone] Wilma Nance MD [address] [address] Social History Tobacco Use Types Packs/Day Years [...] Encounters Date Type Department Care Team (Late Contact Info) Description 03/12/2024 1:00 PM EDT Office Visit Hematology/Oncology at [address] [address] Sony Lyons MD [facility] [place] [address] Dottie Lira APRN [address] [place] [address] DR HEMATOLOGY AND ONCOLOGY [place], [place] [address] 03/19/2024 2:30 PM EDT Office Visit Dermatology at [employer] [address] [place] [phone] Sma Johns MD [address], [place] [address] documented as of this encounter Procedures Procedure Name Priority Date/Time Associated Diagnosis Comments FILM LIBRARY STORAGE ONLY CT ABDOMEN AND PELVIS Routine 03/07/2023 12:00 AM EDT documented in this encounter Results * Film Library- Storage Only CT Abdomen & Pelvis (03/07/2023 12:00 AM EDT) Narrative [facility] - 05/01/2023 1:19 PM EDT This exam is auto-finalizing. It's purpose is for storage only. Wilma Nance MD IMG FILM LIBRARY ORD ERABLES [place], [place] documented in this encounter Visit Diagnoses Not on filedocumented in this encounter Care Teams Trimmer Meat Relationship Specialty Start Date End Date Wilma Nance MD [address] [place] [address] PCP - General Family Medicine 09/18/17 documented as of this encounter
--- OUTSIDE RECORDS SUMMARY | 2024-03-10 01:27 | XMS_ITS | Encounter Summary ---
Author Organization [facility] Address [address] [place] [address] Care Team Providers Care Body Builder Name Role Phone Mikaela Cristymary Awad NP Primary Care Provider [phone] Encounter Details Date Type Department Care Team (Late st Contact Info) Description 10/01/2023 Lab Requisition [facility] Pathology & Laboratory Medicine - [facility] [address], [place] [phone] Outr Resulting Lab, Provider Social History Tobacco [...] Procedure Name Priority Date/Time Associated Diagnosis Comments SPEP, INCLUDES QUANTITATION OF MONOCLONAL SPIKE PERFORMABLE Today 10/01/2023 15:05 EST IMMUNOTYPING, SERUM Today 10/01/2023 1 5:05 EST SPEP, INCLUDES QUANTITATION OF MONOCLONAL SPIKE Routine 10/01/2023 15:05 EST PROTEIN, TOTAL Today 10/01/2023 15:05 EST documented in this encounter Results * IMMUNOTYPING, SERUM (10/01/2023 15:05 EST) Immunotyping, Serum Current Interpretation: 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 Confirmed by immunofixation. Reviewed by: Abelardo Ford MD 10/03/2023 1503 10/03/2023 15:48 [facility] Blood VENOUS BLOOD / Unknown 10/01/2023 15:05 EST 10/01/2023 21:20 EST Provider Outr Resulting Lab CHEMISTRY & BLOOD GAS ORDERABLES [facility] [address] [place] [address] * (ABNORMAL) SPEP, INCLUDES QUANTITATION OF MONOCLONAL SPIKE PERFORMABLE (10/01/2023 15:05 EST) Albumin % 57.0 55.8 - 66.1 % 10/03/2023 15:45 [facility] Albumin g/dL 3.7 3.6 - 5.2 g/dL 10/03/2023 15:45 [facility] Alpha-1 % 4.8 2.9 - 4.9 % 10/03/2023 15:45 [facility] Alpha-1 g/dL 0.30 0.15 - 0.40 g/dL 10/03/2023 15:45 [facility] Alpha-2 % 12.5(H) 7.1 - 11.8 % 10/03/2023 15:45 [facility] Alpha-2 g/dL 0.80 0.50 - 1.00 g/dL 10/03/2023 15:45 [facility] Beta % 12.6 8.4 - 13.1 % 10/03/2023 15:45 [facility] Beta g/dL 0.80 0.60 - 1.20 g/dL 10/03/2023 15:45 [facility] Gamma % 13.1 11.1 - 18.8 % 10/03/2023 15:45 [facility] Gamma g/dL 0.90 0.60 - 1.60 g/dL 10/03/2023 15:45 [facility] SPEP Comment Suspicious pattern seen on protein electrophoresis, immunotyping added by reflex. 10/03/2023 15:45 EST [facility] Comment: Monoclonal protein present, too small to quantitate. See scanned/supplementary report. Total Protein 6.5 6.3 - 8.2 g/dL 10/03/2023 15:45 EST [facility] Blood VENOUS BLOOD / Unknown 10/01/2023 15:05 EST 10/01/2023 21:20 EST Provider Outr Resulting Lab CHEMISTRY & BLOOD GAS ORDERABLES Performing Organization Address [facility] de Phone Number [facility] [address] [place] [address] * PROTEIN, TOTAL (10/01/2023 15:05 EST) Blood VENOUS BLOOD / Unknown 10/01/2023 15:05 EST 10/01/2023 21:20 EST Provider Outr Resulting Lab CHEMISTRY & BLOOD GAS ORDERABLES Performing Organization Address [facility] Co de Phone Number [facility] [address], [place] [phone] documented in this encounter Visit Diagnoses Not on filedocumented in this encounter Care Teams Body Builder Relationship Specialty Start Date End Date Cristy Al NP [facility] [address] [place], [place] [address] PCP - General 02/21/12 documented as of this encounter
--- OUTSIDE RECORDS SUMMARY | 2024-03-10 01:27 | XMS_ITS | Encounter Summary ---
Author Organization [facility] Address [address] [place] [address] Care Team Providers Care Maintenance Worker Name Role Phone Cristy Al NP Primary Care Provider [phone] Encounter Details Date Type Department Care Team (Late st Contact Info) Description 10/16/2023 Lab Requisition [facility] Pathology & Laboratory Medicine - [address] [address] Asher Jennings MD [address] [place] [address], [address] [place], [place] [address] Encounter for screening for malignant neoplasm of colon Social History Tobacco Use Types Packs/Day Years [...] Procedure Name Priority Date/Time Associated Diagnosis Comments SURGICAL PATHOLOGY Today 10/16/2023 11 :08 EDT Encounter for screening for malignant neoplasm of colon documented in this encounter Results * SURGICAL PATHOLOGY (10/16/2023 11:08 EDT) Note to Patient The following pathology results have been interpreted by your pathologist and may be available to you before your health provider has had the opportunity to review them. Please allow time for your provider to receive these results and explore management options, if applicable. 10/21/2023 13:19 [facility] Final Diagnosis A. DUODENUM, BIOPSY: - Duodenal mucosa with no significant diagnostic abnormalities. B. DUODENUM, ULCER, BIOPSY: - Consistent with focal mild peptic duodenitis. See comment. C. STOMACH, ANTRUM, BIOPSY: - Gastric transitional type mucosa with reactive (chemical) gastropathy. - Negative for Helicobacter pylori on H&E stained sections. D. STOMACH, BODY, BIOPSY: - Gastric oxyntic type mucosa with no significant diagnostic abnormalities. E. GASTROESOPHAGEAL JUNCTION, BIOPSY: - Squamocolumnar junctional mucosa with moderate reactive features. - Negative for intestinal metaplasia. F. COLON, 50 CM, POLYP, BIOPSY: - Tubular adenoma. - Deeper levels have been examined. G. COLON, 20 CM, POLYP, BIOPSY: - Colonic mucosa with focal hyperplastic surface change. - Deeper levels have been examined. 10/21/2023 13:19 [facility] Diagnosis Comment Liquid Flavor Compounder slides of this case were reviewed at the intradepartmental consultation conference. 10/21/2023 13:19 [facility] Attestation By the signature below, the attending physician certifies that they have 1) personally conducted a gross and/or microscopic examination of the described specimen(s), and/or personally interpreted the results of laboratory testing of the described specimen(s), and 2) personally rendered or confirmed the above diagnosis. 10/21/2023 13:19 [facility] at 1319 Clinical History Globus sensation, dyspepsia, history colon polyps, colon resection, colon polyps, diverticulosis; clinical diagnosis code: Z12.11 10/21/2023 13:19 [facility] Gross Description A. Received in formalin labelled with proper patient identification (initials H, B) and duodenum Bx are two lenz tissue fragments, 0.3 x 0.2 x 0.1 cm and 0.4 x 0.2 x 0.2 cm. Entirely submitted in A1. B. Received in formalin labelled with proper patient identification (initials H, B) and duodenal ulcer is a lenz tissue fragment, 0.3 x 0.2 x 0.2 cm. Entirely submitted in B1. C. Received in formalin labelled with proper patient identification (initials H, B) and antrum Bx is a lenz tissue fragment, 0.4 x 0.3 x 0.2 cm. Entirely submitted in C1. D. Received in formalin labelled with proper patient identification (initials H, B) and body Bx are two lenz tissue fragments, 0.2 x 0.2 x 0.1 cm and 0.5 x 0.3 x 0.2 cm. Entirely submitted in D1. E. Received in formalin labelled with proper patient identification (initials H, B) and GE junction Bx are two lenz tissue fragments, 0.2 x 0.2 x 0.1 cm and 0.3 x 0.2 x 0.2 cm. Entirely submitted in E1. F. Received in formalin labelled with proper patient identification (initials H, B) and polyp @ 50 cm is a lenz tissue fragment, 0.5 x 0.1 x 0.1 cm. Entirely submitted in F1. G. Received in formalin labelled with proper patient identification (initials H, B) and polyp @ 20 cm is a lenz-brown tissue fragment, 0.5 x 0.2 x 0.2 cm. Entirely submitted in G1. SEJAL ESPINOZA(ASCP) 10/17/2023 7:40 10/21/2023 13:19 T [facility] Performing Lab [facility] 10/21/2023 13:19 T [facility] Scanned Images 10/21/2023 13:19 [facility] Tissue COLON STRUCTURE / Unknown 10/16/2023 11:08 EDT 10/16/2023 16:14 EDT Tissue specimen (specimen) STRUCTURE OF SMALL INTESTINE / Unknown 10/16/2023 11:08 EDT 10/16/2023 16:14 EDT Tissue specimen (specimen) STOMACH STRUCTURE / Unknown 10/16/2023 11:08 EDT 10/16/2023 16:14 EDT Tissue specimen (specimen) STOMACH STRUCTURE / Unknown 10/16/2023 11:08 EDT 10/16/2023 16:14 EDT Tissue specimen (specimen) ESOPHAGEAL STRUCTURE / Unknown 10/16/2023 11:08 EDT 10/16/2023 16:14 EDT Tissue specimen (specimen) COLON STRUCTURE / Unknown 10/16/2023 11:08 EDT 10/16/2023 16:14 EDT Tissue specimen (specimen) COLON STRUCTURE / Unknown 10/16/2023 11:08 EDT 10/16/2023 16:14 EDT Asher Jennings MD PATHOLOGY ORDERABLES [facility] [address] [place] [address] documented in this encounter Visit Diagnoses Diagnosis Encounter for screening for malignant neoplasm of colon Special screening for malignant neoplasms, colon documented in this encounter Care Teams Maintenance Worker Relationship Specialty Start Date End Date Cristy Al NP [facility] [address] [place], [place] [address] PCP - General 02/21/12 documented as of this encounter
--- OUTSIDE RECORDS SUMMARY | 2024-03-10 01:27 | XMS_ITS | Encounter Summary ---
Author Organization [facility] Address [facility] [place] [address] Care Team Providers Care Packing Machine Pilot Can Router Name Role Phone Wilma Nance MD Primary Care Provider [phone] Encounter Details Date Type Department Care Team (Late Contact Info) Description 03/11/2023 Refill Dermatology at [address] [address] Kelsey Jackman, RN Social History Tobacco Use Types Packs/Day Years [...] 1:00 PM EDT Office Visit Hematology/Oncology at [address] [address] Sony Lyons MD [facility] [place] [address] Dottie Lira APRN [address] [place] [address] DR HEMATOLOGY AND ONCOLOGY [place], [place] [id number] 03/19/2024 2:30 PM EDT Office Visit Dermatology at [place] [address] [place] [phone] Sam Johns MD [address], [place] [address] documented as of this encounter Visit Diagnoses Not on filedocumented in this encounter Care Teams Packing Machine Pilot Can Router Relationship Specialty Start Date End Date Wilma Nance MD [address] [place] [address] PCP - General Family Medicine 09/18/17 documented as of this encounter
--- OUTSIDE RECORDS SUMMARY | 2024-03-10 01:27 | XMS_ITS | Encounter Summary ---
Author Organization [facility] Address [address] [place] [address] Care Team Providers Care Administrative Director Name Role Phone Cristy Al NP Primary Care Provider [phone] Encounter Details Date Type Department Care Team (Late st Contact Info) Description 02/05/2023 Lab Requisition [facility] Pathology & Laboratory Medicine - [address] [phone] Outr Resulting Lab, Provider Social History Tobacco [...] Priority Date/Time Associated Diagnosis Comments CEA Routine 02/05/2023 15:00 EDT documented in this encounter Results * CEA (02/05/2023 15:00 EDT) CEA 3.6 See Note ng/mL 02/05/2023 23:17 EDT [facility] Comment: % Distribution of CEA [...] used interchangeably. Blood VENOUS BLOOD / Unknown 02/05/2023 15:00 EDT 02/05/2023 21:34 EDT Provider Outr Resulting Lab CHEMISTRY & BLOOD GAS ORDERABLES [facility] [address] [place] [address] documented in this encounter Visit Diagnoses Not on filedocumented in this encounter Care Teams Administrative Director Relationship Specialty Start Date End Date Cristy Al NP [facility] [address] [place] [address] PCP - General 02/21/12 documented as of this encounter
--- OUTSIDE RECORDS SUMMARY | 2024-03-10 01:27 | XMS_ITS | Encounter Summary ---
Author Organization [facility] Address [address] [place] [address] Care Team Providers Care Shield Installer Name Role Phone Mikaela Cristymary Awad NP Primary Care Provider [phone] Encounter Details Date Type Department Care Team (Late st Contact Info) Description 05/10/2022 Lab Requisition [facility] Pathology & Laboratory Medicine - [address] [phone] Outr Resulting Lab, Provider Social History Tobacco [...] Procedure Name Priority Date/Time Associated Diagnosis Comments LYME AB Routine 05/10/2022 5:40 EDT documented in this encounter Results * LYME AB (05/10/2022 5:40 EDT) Lyme Ab Negative Negative 05/13/2022 11:04 EDT [facility] Blood VENOUS BLOOD / Unknown 05/10/2022 5:40 EDT 05/10/2022 18:40 EDT Provider Outr Resulting Lab IMMUNOLOGY A ND SEROLOGY ORDERABLES [facility] [address] [place] [address] documented in this encounter Visit Diagnoses Not on filedocumented in this encounter Care Teams Shield Installer Relationship Specialty Start Date End Date Cristy Al, FIELD HA[employer]ER [facility] [address] [place] [address] PCP - General 02/21/12 documented as of this encounter
--- OUTSIDE RECORDS SUMMARY | 2024-03-10 01:27 | XMS_ITS | Encounter Summary ---
Author Organization [facility] [place] [address] Care Team Providers Care Grip Assembler Name Role Phone Wilma Nance MD Primary Care Provider [phone] Encounter Details Date Type Department Care Team (Late Contact Info) Description 01/01/2024 Ancillary Procedure [place] [phone] Wilma Nance MD [address] [address] Social History Tobacco Use Types Packs/Day Years [...] 1:00 PM EDT Office Visit Hematology/Oncology at [address] [address] Sony Lyons MD [facility] [place] [address] Dottie Lira APRN [address] [place] [address] DR HEMATOLOGY [place] ONCOLOGY [place], [place] [address] 03/19/2024 2:30 PM EDT Office Visit Dermatology at [place] [address] [place] [phone] Sam Johns MD [address] [place] [address] documented as of this encounter Procedures Procedure Name Priority Date/Time Associated Diagnosis Comments FILM LIBRARY STORAGE ONLY MR SPINE Routine 01/01/2024 12:00 AM EDT documented in this encounter Results * Film Library- Storage Only MR Spine (01/01/2024 12:00 AM EDT) Narrative [facility] - 02/10/2024 12:21 PM EDT This exam is auto-finalizing. It's purpose is for storage only. Wilma Nance MD IMG FILM LIBRARY ORD ERABLES [place], [place] documented in this encounter Visit Diagnoses Not on filedocumented in this encounter Care Teams Grip Assembler Relationship Specialty Start Date End Date Wilma Nance MD [address] [place] [address] PCP - General Family Medicine 09/18/17 documented as of this encounter
--- OUTSIDE RECORDS SUMMARY | 2024-03-10 01:27 | XMS_ITS | Encounter Summary ---
Author [place] [address] Care Team Providers Care Specialist Physicians Name Role Phone Wilma Nance MD Primary Care Provider [phone] Encounter Details Date Type Department Care Team (Late st Contact Info) Description 02/05/2023 1:30 PM EDT Office Visit Hematology/Oncology at [address] [phone] Dottie Lira [employer] [address] [place] [address] H[place] [address] Malignant neoplasm of sigmoid colon Social History Tobacco Use Types Packs/Day Years Used Date Smoking Tobacco: Every Day Cigarettes 1 15 Smokeless Tobacco: Never Tobacco Cessation:Ready to Q uit: Not Asked; Counseling Given: Not Answered Comments:Restarted trying to stop now 02/05/23-really trying [...] Sign Reading Time Taken Comments Blood Pressure 108/54 02/05/2023 1:46 PM EDT Pulse 84 02/05/2023 1:46 PM EDT Temperature 36.5 ??C (97.7 ??F) 02/05/2023 1:46 PM ED T Respiratory Rate 18 02/05/2023 1:46 PM EDT Oxygen Saturation 93% 02/05/2023 1:46 PM EDT Inhaled Oxygen Concentration - - Weight 107.2 kg (236 lb 6.4 oz) 02/05/2023 1:46 PM EDT Height 157.5 cm (5' 2.01) 02/05/2023 1:46 PM ED T Body Mass Index 43.23 02/05/2023 1:46 PM EDT documented in this encounter Progress Notes * Dottie Lira APRN - 02/05/2023 1:30 PM EDT Subjective Patient ID: Shilho Anderson is 77 y.o. Problem List: 1. [...] Category: pT3 pN Category: pN0 Prior Biopsy ([facility] Standard 2.1) A biopsy was performed and read elsewhere and reviewed: [id number] part B Additional Findings Additional Findings: None identified 2. History of basal cell carcinoma 3. [...] back pain 21. S/p bilateral shoulder surgery SUSAN Matamoros is seen for evaluation and management of colon cancer. The history is summarized above. She is by herself in clinic today. She is doing pretty well, she thinks her spirits are high. She has long standing low back pain for which she is on a fentanyl patch and immediate release morphine. She is also seeing a neurologist for spinal stenosis and neuropathy, though her neuropathy symptoms have resolved. Her bowels are regular, no diarrhea, no constipation, no pain. No blood in the stool. Energy level has been pretty good. She does think she is developing a hernia in her abd. It is not painful, but quite large. Her appetite is good. Her weight is lower again today, she is actively trying to lose weight. Soc Hx: Lives in [place], [place] Tob - Current (quits and restarts frequently) - she plans to try quitting again with the help of nicotine replacement and counseling. 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 Review of Systems Constitutional: Negative for activity change, appetite change, fatigue and unexpected weight change. Respiratory: Negative. Cardiovascular: Negative. Gastrointestinal: Negative for abdominal pain, blood in stool, constipation, diarrhea, nausea and vomiting. Musculoskeletal: Positive for back pain (Chronic). Neurological: Negative. Psychiatric/Behavioral: Negative. Objective Physical Exam Vitals reviewed. Constitutional: General: She is not in acute distress. HENT: Head: Normocephalic and atraumatic. Nose: No congestion. Mouth/Throat: Pharynx: Oropharynx is clear. No oropharyngeal exudate. Eyes: General: No scleral icterus. Conjunctiva/sclera: Conjunctivae normal. Cardiovascular: Rate and Rhythm: Normal rate and regular rhythm. Heart sounds: Normal heart sounds. Pulmonary: Effort: Pulmonary effort is normal. No respiratory distress. Breath sounds: No wheezing or rales. Abdominal: General: Bowel sounds are normal. There is no distension. Palpations: Abdomen is soft. There is no mass. Tenderness: There is no abdominal tenderness. There is no guarding. Hernia: A hernia (Large midline abd hernia, non-tender, soft, and reducible.) is present. Comments: Abdominal incision well healed Musculoskeletal: General: No swelling. Lymphadenopathy: Cervical: No cervical adenopathy. Upper Body: Right upper body: No supraclavicular adenopathy. Left upper body: No supraclavicular adenopathy. Skin: General: Skin is warm and dry. Findings: No rash. Neurological: General: No focal deficit present. Mental Status: She is alert. Psychiatric: Mood and Affect: Mood normal. Labs: None drawn for this visit CEA 02/05/23 3.5 10/28/22 3.7 04/29/22 2.8 Assessment and Plan Shiloh Anderson is 77 yo, seen for evaluation and management of colon cancer, sigmoid, pT3N0, dMMR. She underwent a screening colonoscopy by Dr. Carrillo on 04/17/22. An ulcerated mass was seen at 60 cm and biopsied. The pathology showed Invasive moderately differentiated adenocarcinoma with loss of staining for MLH1 and PMS2. Staging CT c/a/p showed no evidence of metastatic disease and the CEA was 2.8. On 05/08/22 she underwent a laparoscopic left hemicolectomy. 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 The margins of resection were negative. There was no LVI or PNI. Tumor budding score was 0. The diagnosis, prognosis and treatment options were reviewed. Given the lack of high risk features and the MMR deficiency however, any benefit related to chemotherapy is likely to be small and chemotherapy would generally not be recommemded. The overall prognosis here is good and it was decided that observation is a very reasonable approach. 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 There does not appear to be any family h/o Casey associated tumors. She was referred to the familial cancer program and has received her buccal swab kit, but has not yet completed it. She tells me she will be completing it soon. We will plan to see her back in April with a repeat CT scan (1 year from the last one) and labs. She tells me she has a repeat colonoscopy and endoscopy (feeling of food getting stuck) scheduled for next week, she will be clarifying this. It would be a bit early for the colonoscopy. documented in this encounter Plan of Treatment Upcoming Encounters Date Type Department Care Team (Late st Contact Info) Description 03/12/2024 1:00 PM EDT Office Visit Hematology/Oncology at [address] [phone] Sony Lyons MD [facility] [place] [address] Dottie Lira APRN [address] [place] [address] DR HEMATOLOGY [place] [address] 03/19/2024 2:30 PM EDT Office Visit Dermatology at [place] [address] [facility] [place] [phone] Sam Johns MD [address] [facility], [place] [place] [address] documented as of this encounter Visit Diagnoses Diagnosis Malignant neoplasm of sigmoid colon documented in this encounter Care Teams Specialist Physicians Relationship Specialty Start Date End Date Wilma Nance MD [address] [place] [address] PCP - General Family Medicine 09/18/17 documented as of this encounter
--- OUTSIDE RECORDS SUMMARY | 2024-03-10 01:27 | XMS_ITS | Encounter Summary ---
Author Organization [facility] [place] [address] Care Team Providers Care Manager Mental Health Name Role Phone Wilma Nance MD Primary Care Provider [phone] Encounter Details Date Type Department Care Team (Late Contact Info) Description 07/10/2023 4:55 PM EST Ancillary Procedure [place] [address] Sony Lyons MD [facility] [place] [address] Social History Tobacco Use Types Packs/Day Years [...] 1:00 PM EDT Office Visit Hematology/Oncology at [address] [phone] Sony Lyons MD [facility] [place] [address] Dottie Lira APRN [address] [place] [address] DR [place] [address] 03/19/2024 2:30 PM EDT Office Visit Dermatology at [place] [address] [facility] [place] [phone] Sam Johns MD [address] [facility] [address], [place] [address] documented as of this encounter Procedures Procedure Name Priority Date/Time Associated Diagnosis Comments FILM LIBRARY STORAGE ONLY MR ABDOMEN Routine 07/10/2023 4:53 PM EST documented in this encounter Results * Film Library- Storage Only MR Abdomen (07/10/2023 4:53 PM EST) Narrative [facility] - 07/10/2023 4:53 PM EST This exam is auto-finalizing. It's purpose is for storage only. Sony Lyons MD IMG FILM LIBRARY ORD ERABLES [place], [place] documented in this encounter Visit Diagnoses Not on filedocumented in this encounter Care Teams Manager Mental Health Relationship Specialty Start Date End Date Wilma Nance MD [address] [place] [address] PCP - General Family Medicine 09/18/17 documented as of this encounter
--- OUTSIDE RECORDS SUMMARY | 2024-03-10 01:27 | XMS_ITS | Encounter Summary ---
Author Organization [facility] [place] [address] Care Team Providers Care Hand Or Machine Paster Name Role Phone Wilma Nance MD Primary Care Provider [phone] Encounter Details Date Type Department Care Team (Late Contact Info) Description 01/08/2023 Telephone Hematology [place] [phone] Eulalio Gar[facility] [address] Social History Tobacco Use Types Packs/Day Years Used Date Smoking Tobacco: Every Day Cigarettes 1 15 Smokeless Tobacco: Never Comments:Restarted trying to stop now Alcohol Use Standard Drinks/Week Comments Yes 3 [...] 1:00 PM EDT Office Visit Hematology/Oncology at [address] [phone] Sony Lyons MD [facility] [place] [address] Dottie Lira APRN [address] [place] [address] DR HEMATOLOGY AND ONCOLOGY [place], [place] [address] 03/19/2024 2:30 PM EDT Office Visit Dermatology at [place] [address] [facility] [address] [place] [phone] Sam Johns MD [address] [facility] [address], [place] [address] documented as of this encounter Visit Diagnoses Not on filedocumented in this encounter Care Teams Hand Or Machine Paster Relationship Specialty Start Date End Date Wilma Nance MD [address] [place] [address] PCP - General Family Medicine 09/18/17 documented as of this encounter
--- OUTSIDE RECORDS SUMMARY | 2024-03-10 01:27 | XMS_ITS | Encounter Summary ---
Author Organization [facility] Address [address] [place] [address] Care Team Providers Care Car Wrecker Name Role Phone Cristy lA NP Primary Care Provider [phone] Encounter Details Date Type Department Care Team (Late st Contact Info) Description 04/29/2022 Lab Requisition [facility] Pathology & Laboratory Medicine - [address] [phone] Outr Resulting Lab, Provider Social History Tobacco [...] Priority Date/Time Associated Diagnosis Comments CEA Routine 04/29/2022 10:00 EDT documented in this encounter Results * CEA (04/29/2022 10:00 EDT) CEA 2.8 See Note ng/mL 04/29/2022 19:[address] [facility] Comment: % Distribution [...] used interchangeably. Blood VENOUS BLOOD / Unknown 04/29/2022 10:00 EDT 04/29/2022 17:42 EDT Provider Outr Resulting Lab CHEMISTRY & BLOOD GAS ORDERABLES [facility] [address] [place] [address] documented in this encounter Visit Diagnoses Not on filedocumented in this encounter Care Teams Car Wrecker Relationship Specialty Start Date End Date Cristy Al NP [facility] [address] [place] [address] PCP - General 02/21/12 documented as of this encounter
--- OUTSIDE RECORDS SUMMARY | 2024-03-10 01:27 | XMS_ITS | Encounter Summary ---
Author Organization [facility] Address [address] [place] [address] Care Team Providers Care Manager Credit Name Role Phone Cristy Al NP Primary Care Provider [phone] Encounter Details Date Type Department Care Team (Late st Contact Info) Description 11/14/2023 Lab Requisition [facility] Pathology & Laboratory Medicine - [address] [phone] Outr Resulting Lab, Provider Social History Tobacco [...] Priority Date/Time Associated Diagnosis Comments CEA Routine 11/14/2023 10:58 EDT documented in this encounter Results * CEA (11/14/2023 10:58 EDT) CEA 3.2 See Note ng/mL 11/14/2023 18:14 EDT [facility] Comment: % Distribution [...] used interchangeably. Blood VENOUS BLOOD / Unknown 11/14/2023 10:58 EDT 11/14/2023 17:20 EDT Provider Outr Resulting Lab CHEMISTRY & BLOOD GAS ORDERABLES Performing Organization Address City/State/[facility] Co de Phone Number [facility] [address] [place] [address] documented in this encounter Visit Diagnoses Not on filedocumented in this encounter Care Teams Manager Credit Relationship Specialty Start Date End Date Cristy Al NP [facility] [place] [facility] [address] [place] [address] PCP - General 02/21/12 documented as of this encounter
--- OUTSIDE RECORDS SUMMARY | 2024-03-10 01:27 | XMS_ITS | Encounter Summary ---
Author Organization [facility] Address [address] [place] [address] Care Team Providers Care Cement Mason Helper Name Role Phone Cristy Al HAND EDGER Primary Care Provider [phone] Encounter Details Date Type Department Care Team (Latest Contact Info) Description 03/13/2016 14:30 EDT - 03/13/2016 23:59 EDT Hospital Encounter [address] [address] Unknown, Provider, Discharge Disposition: Home or Self Care Social History Tobacco Use Types Packs/Day Years Used Date Smoking Tobacco: Never Assessed Sex and Gender Information Value Date Recorded Sex Assigned at Not on file Gender Identity Not on file Sexual Orientation Not on file documented as of this encounter Discharge Disposition Disposition Code Departure Means Destination Home or Self Skilled Nursing documented in this encounter Plan of Treatment Not on file documented as of this encounter Visit Diagnoses Not on filedocumented in this encounter Care Teams Cement Mason Helper Relationship Specialty Start Date End Date Cristy Al NP [facility] [address] [place] [address] PCP - General 02/21/12 documented as of this encounter
--- OUTSIDE RECORDS SUMMARY | 2024-03-10 01:27 | XMS_ITS | Clinical Summary ---
Author Organization [facility] [place] [address] Care Team Providers Care Die Engraving Supervisor Name Role Phone Wilma Nance MD Primary Care Provider [phone] Allergies Active Allergy Reactions Criticality Noted Date Comments Formoterol Other (See Comments) High 03/03/2023 Mirabegron 03/03/2023 Other Reaction(s): Increased blood pressure Mometasone Furoate High 03/03/2023 Other Reaction(s): thrush Medications Medication Sig Dispensed Refills Start Date End Date Status oxyCODONE-acetaminop hen (PERCOCET) 10-325 mg Tablet Take 1 tablet by mouth every 4 hours as needed. 08/26/2016 Active ESTRACE 0.01 % (0.1 mg/gram) Cream apply 2 grams vaginally two times a week 1 06/24/2017 Active levothyroxine (SYNTHROID) 175 mcg Tablet Take 175 mcg by mouth daily. 0 08/04/2017 Active cyclobenzaprine (FLEXERIL) 10 mg Tablet TAKE 1 TABLET BY MOUTH 3 TIMES A DAY NEEDED DO NOT USE BEFORE DRIVING 0 11/26/2018 Active OXYGEN-AIR DELIVERY SYSTEMS MISC nightly. With c-pap 11/18/2017 Act kate celecoxib (CeleBREX) 200 mg Capsule TK 1 C PO BID 04/25/2020 Active cholecalciferol, Vitamin D3, (Vitamin D3) 1,000 unit Tablet Take 1,000 Units by mouth daily. Active folic acid (Folvite) 400 mcg Tablet Take 400 mcg by mouth daily. Active multivitamin (THERAGRAN) Tablet Take 1 tablet by mouth daily. Active Narcan 4 mg/actuation Molino, Non-Aerosol ADMINISTER 1 SYRINGE FULL IN NOSTRIL NEEDED FOR EXCESSIVE SEDATION FROM CHRONIC OPIATE USE 01/06/2020 Active albuteroL 90 mcg/actuation HFA Aerosol Inhaler Inhale 2 puffs into the lungs every 4 hours as needed for Wheezing. Use with spacer Active oxybutynin XL (Ditropan-XL) 5 mg Tablet Extended Rel 24 hr TAKE 1 TABLET BY MOUTH DAILY 01/20/2021 Active losartan (COZAAR) 100 mg Tablet TAKE 1 TABLET BY MOUTH EVERY DAY 03/20/2021 Active OXYGEN-AIR DELIVERY SYSTEMS MISC by NOT APPLICABLE route. 02/15/2021 Active atenoloL (Tenormin) 25 mg Tablet Take 25 mg by mouth every evening. 01/22/2022 Active Sodium Fluoride 5000 Plus 1.1 % Cream USE TO BRUSH TEETH FOR 2 MINUTES EVERY DAY AT BEDTIME 10/31/2021 Active gabapentin (Neurontin) 300 mg Capsule Take 600 mg by mouth 3 times daily. 12/25/2021 Active morphine CR (Ms Contin) 15 mg Tablet Sustained Release Take 15 mg by mouth 2 times daily. 01/24/2022 Active fentaNYL (Duragesic) 25 mcg/hr Patch 72 hr Change 1 patch on the skin every 3 days. 01/09/2023 Active FLUoxetine (PROzac) 20 mg capsule 01/16/2023 Active fluticasone propionate (Flonase) 50 mcg/actuation Molino, Suspension daily. 12/26/2022 Active nitroGLYcerin (Nitrostat) 0.3 mg sublingual tablet Q5M 09/15/2022 Active polyethylene glycoL (Miralax) 17 gram/dose Powder 02/05/2023 Active Cane Device .MEDSUPPLY 02/24/2020 Active simvastatin (Zocor) 10 mg tablet Every evening 12/26/2022 Active fluorouraciL (EFUDEX) 5 % Cream Apply thin layer topically once daily to face for 1 week on then 3 weeks off. Repeat for a total of 3 cycles. 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 Right distal ulnar fracture 11/26/2020 S/P lumbar fusion 11/26/2020 Severe obesity 11/26/2020 Sleep apnea 11/26/2020 Urge incontinence of urine 01/30/2017 History of basal cell carcinoma 08/29/2016 Cerumen impaction 02/14/2014 Dysphonia 02/14/2014 Sensory hearing loss, bilateral 02/14/2014 Gastroesophageal reflux disease 01/10/2014 Tobacco use disorder 01/10/2014 Breast mass 07/15/2012 Encounters Date Type Department Care Team Description 02/05/2024 Telephone Hematology [place] [address] Gloria Villagomez Prior Authorization 01/01/2024 Ancillary Procedure [place] [address] Wilma Nance MD from Last 3 Months Family History Medical History Relation Comments Esophageal Cancer Brother Thyroid Cancer Daughter 1 Melanoma Daughter 2 Esophageal Cancer Maternal Aunt Cancer Maternal Cousin unknown primary, in her 30s Esophageal Cancer Maternal Uncle 1 Lung Cancer Maternal Uncle 2 Lung Cancer Maternal Uncle 3 Relation Status Comments Brother Daughter 1 Alive Daughter 2 Alive Father Maternal Aunt Maternal Cousin Maternal Uncle 1 Maternal Uncle 2 Maternal Uncle 3 Mother Sister Alive Social History Tobacco Use Types Packs/Day Years [...] Sign Reading Time Taken Comments Blood Pressure 183/88 11/14/2023 11:23 AM EDT Pulse 74 11/14/2023 11:23 AM EDT Temperature 36.1 ??C (96.9 ??F) 11/14/2023 1 1:23 AM EDT Respiratory Rate 18 11/14/2023 11:2 3 AM EDT Oxygen Saturation 96% 11/14/2023 11: 23 AM EDT Inhaled Oxygen Concentration - - Weight 109.4 kg (241 lb 3.2 oz) 024 11:23 AM EDT Height 157.5 cm (5' 2.01) 11/14/2023 1 1:23 AM EDT Body Mass Index 44.1 11/14/2023 11:23 AM EDT Plan of Treatment Upcoming Encounters Date Type Department Care Team (Late st Contact Info) Description 03/12/2024 1:00 PM EDT Office Visit Hematology/Oncology at [address] [phone] Sony Lyons MD [facility] [place] [address] Dottie Lira APRN [address] [place] [address] DR HEMATOLOGY AND ONCOLOGY [place], [place] [id number] 03/19/2024 2:30 PM EDT Office Visit Dermatology at [address] [place] [phone] Sam Johns MD [address] [facility], [place] [address] Health Maintenance Due Date Last Done Comments Pneumoccocal Vaccine: 65+ (1 of 2 - PCV) 1949 Hepatitis C Screening 1961 Tdap adult 1962 Tetanus vaccine 1962 Zoster vaccine (1 of 2) 1993 Bone Density Scan 2008 Covid-19 Vaccine (1 - season) 2023 Influenza (Flu) vaccine (1 o f 1 - Influenza standard series) 03/28/2024 Breast Cancer screening Discontinued 07/20/2012, 08/13 Procedures Procedure Name Priority Date/Time Associated Diagnosis Comments FILM LIBRARY STORAGE ONLY MR SPINE Routine 01/01/2024 12:00 AM EDT MAMMO UNILATERAL DIAGNOSTIC SCREENING WITH CAD Routine 07/20/2012 2:45 PM EST from Last 3 Months or Most Recently Relevant to Health Maintenance Results * Film Library- Storage Only MR Spine (01/01/2024 12:00 AM EDT) Narrative [facility] - 02/10/2024 12:21 PM EDT This exam is auto-finalizing. It's purpose is for storage only. Wilma Nance MD IMG FILM LIBRARY ORD ERABLES [place], [place] * Mammo unilateral diagnostic screening with CAD (07/20/2012 2:45 PM EST) Anatomical Region Laterality Modality Breast N/A Mammography 07/20/2012 2:45 PM EST Impressions 07/22/2012 10:13 AM EST IMPRESSION: BENIGN Bilateral mammogram and Left breast ultrasound (BIRADS Category 2). Probable lipoma at the site of clinical concern. Clinical follow-up with Danielle Jerome recommended. Narrative 07/22/2012 10:13 AM EST UNILATERAL DIAGNOSTIC LEFT MAMMOGRAM AND SCREENING RIGHT MAMMOGRAM ON 07/20/12: CLINICAL INDICATION: Self-detected clinical concern in the lateral Left breast. TECHNIQUE: A skin marker was placed at the site of clinical concern in the Left breast and CC, MLO and ML views of the Left breast, CC and MLO views of the Right breast obtained with direct digital capture. This exam was evaluated by CAD version 8.3.17. Ultrasound was targeted to the site of clinical concern in the lateral Left breast. FINDINGS: The breasts are predominantly fat. There has been no change. There are no mammographic abnormalities. Ultrasound targeted to the area of clinical concern as indicated by the patient at 0230, 6cm from the nipple in the Left breast demonstrates a prominent fat lobule or lipoma that is slightly more echogenic than surrounding fat lobules and maintains an oval shape in all projections. This measures 31mm in greatest diameter. Procedure Note Fawad Pollock MD - 07/22/2012 UNILATERAL DIAGNOSTIC LEFT MAMMOGRAM AND SCREENING RIGHT MAMMOGRAM ON07/20/12: CLINICAL INDICATION: Self-detected clinical concern in the lateral Leftbreast. TECHNIQUE: A skin marker was placed at the site of clinical concern in theLeft breast and CC, MLO and ML views of the Left breast, CC and MLO views ofthe Right breast obtained with direct digital capture. This exam was evaluatedby CAD version 8.3.17. Ultrasound was targeted to the site of clinicalconcern in the lateral Left breast. FINDINGS: The breasts are predominantly fat. There has been no change. There are no mammographic abnormalities. Ultrasound targeted to the area of clinical concern as indicated by thepatient at 0230, 6cm from the nipple in the Left breast demonstrates a prominentfat lobule or lipoma that is slightly more echogenic than surrounding fatlobules and maintains an oval shape in all projections. This measures 31mm ingreatest diameter. IMPRESSION IMPRESSION: BENIGN Bilateral mammogram and Left breast ultrasound (BIRADS Category 2). Probable lipoma at the site of clinical concern. Clinical follow-up Raymond Jerome recommended. Sri Rogers MD IMG MAMMO ORDERABLE S from Last 3 Months or Most Recently Relevant to Health Maintenance Advance Directives Documents on File Type Date Recorded Patient Chemical Handler Expl anation Advance Directives and Living Will 07/08/2022 1:05 PM vt advance directive 07/08/22 * Full Code (Latest Code Status on File) Date Activated Date Inactivated Comments 09/28/2012 7:19 AM 09/28/2012 1:39 PM Question Answer Comments Order Status: Initial Order Does patient have decision m aking capacity? Yes, Order is based on Patients wishes. Care Teams Die Engraving Supervisor Relationship Specialty Start Date End Date Wilma Nance MD [address] [place] [address] PCP - General Family Medicine 09/18/17
--- OUTSIDE RECORDS SUMMARY | 2024-03-10 01:27 | XMS_ITS | Encounter Summary ---
Author Organization [facility] Address [address] [place] [address] Care Team Providers Care Linotypist Name Role Phone Cristy Al NP Primary Care Provider [phone] Encounter Details Date Type Department Care Team (Late st Contact Info) Description 07/24/2020 Lab Requisition [facility] Pathology & Laboratory Medicine - [address] [address] Outr Resulting Lab, Provider Social History Tobacco [...] Procedure Name Priority Date/Time Associated Diagnosis Comments ZZCOVID-19 TEST [facility] PCR Today 07/24/2020 12:02 EST COVID-19 TESTING Routine 07/24/2020 12:0 2 EST documented in this encounter Results * COVID-19 TEST [facility] PCR (07/24/2020 12:02 EST) Swab ENTIRE NASOPHARYNX / Unknown 07/24/2020 12:02 EST 07/24/2020 15:30 EST Provider Outr Resulting Lab MICROBIOLOGY - GENERAL ORDERABLES [facility] [address] [place] [address] * COVID-19 TESTING (07/24/2020 12:02 EST) COVID-19 rt-PCR Result Negative Negative 07/25/2020 16:[address] [facility] Comment: Negative results do not preclude 2019-nCoV infection and should not be used as the sole basis for treatment or other patient management decisions. Negative results must be combined with clinical observations, patient history, and epidemiological information. This test was developed and its performance characteristics determined by [facility]. It has not been cleared or approved by the US Food and Drug Administration. FDA does not require this test to go through premarket FDA review. This test is used for clinical purposes. It should not be regarded as investigational or for research. This laboratory is certified under the Clinical Laboratory Improvement Amendments (CLIA) as qualified to perform high complexity clinical laboratory testing. This test is based on the CDC COVID-19 Emergency Use Authorization (EUA) assay, with minor modification as defined by the FDA Performed on the [employer] Therapeutic 7 Flex. Performing Lab [email or web address] 7 [facility] 07/25/2020 16:[address] [facility] Swab 07/24/2020 12:0 2 EST 07/24/2020 15:30 EST Provider Outr Resulting Lab MICROBIOLOGY - GENERAL ORDERABLES [facility] [address] [place] [address] documented in this encounter Visit Diagnoses Not on filedocumented in this encounter Care Teams Linotypist Relationship Specialty Start Date End Date Cristy Al NP [facility] [address] [place] [address] PCP - General 02/21/12 documented as of this encounter
--- OUTSIDE RECORDS SUMMARY | 2024-03-10 01:27 | XMS_ITS | Encounter Summary ---
Author Organization [facility] Address [address] [place] [address] Care Team Providers Care Inclusion Intern Name Role Phone MikaelaCristy KUSUM Primary Care Provider [phone] Encounter Details Date Type Department Care Team (Late st Contact Info) Description 01/01/2024 Lab Requisition [facility] Pathology & Laboratory Medicine - [address] [phone] Outr Resulting Lab, Provider Social History Tobacco [...] AB (LUIS), IFA Routine 01/01/2024 14:14 EDT documented in this encounter Results * (ABNORMAL) ANTI NUCLEAR AB (LUIS), IFA (01/01/2024 14:14 EDT) LUIS Interpretation Positive(A) Negative 01/02/2024 12:49 EDT [facility] Comment: For titers greater than [...] Pattern 1 1:160 Homogeneous 01/02/2024 12:49 EDT [facility] Blood VENOUS BLOOD / Unknown 01/01/2024 14:14 EDT 01/01/2024 21:22 EDT Narrative [facility] - 01/02/2024 12:49 EDT Results were obtained with the [employer] NOVA Lite HEp-2 LUIS Kit by indirect immunofluorescence. Provider Outr Resulting Lab IMMUNOLOGY A ND SEROLOGY ORDERABLES [facility] [address] [place] [address] documented in this encounter Visit Diagnoses Not on filedocumented in this encounter Care Teams Inclusion Intern Relationship Specialty Start Date End Date Cristy Al NP [facility] [address] [place], [place] [id number] PCP - General 02/21/12 documented as of this encounter
--- OUTSIDE RECORDS SUMMARY | 2024-03-10 01:27 | XMS_ITS | Encounter Summary ---
Author Organization [facility] Address [address] [place] [address] Care Team Providers Care Dough Scaler And Mixer Name Role Phone Cristy Al NP Primary Care Provider [phone] Encounter Details Date Type Department Care Team (Late st Contact Info) Description 05/16/2023 Lab Requisition [facility] Pathology & Laboratory Medicine - [address] [phone] Outr Resulting Lab, Provider Social History Tobacco [...] Priority Date/Time Associated Diagnosis Comments CEA Routine 05/16/2023 10:05 EDT documented in this encounter Results * CEA (05/16/2023 10:05 EDT) CEA 3.2 See Note ng/mL 05/16/2023 19:29 EDT [facility] Comment: % Distribution [...] used interchangeably. Blood VENOUS BLOOD / Unknown 05/16/2023 10:05 EDT 05/16/2023 17:54 EDT Provider Outr Resulting Lab CHEMISTRY & BLOOD GAS ORDERABLES [facility] [address] [place] [address] documented in this encounter Visit Diagnoses Not on filedocumented in this encounter Care Teams Dough Scaler And Mixer Relationship Specialty Start Date End Date Cristy Al NP [facility] [address] [place] [address] PCP - General 02/21/12 documented as of this encounter
--- OUTSIDE RECORDS SUMMARY | 2024-03-10 01:27 | XMS_ITS | Encounter Summary ---
Author Organization [facility] Address [address] [place] [address] Care Team Providers Care Surgical Technologist Name Role Phone De BacaCristy mccollum KUSUM Primary Care Provider [phone] Encounter Details Date Type Department Care Team (Late st Contact Info) Description 08/16/2016 Results Only [facility] [phone] Nuvia Cohen MD [address] [place] [phone] Social History Tobacco Use Types Packs/Day Years Used Date Smoking Tobacco: Never Assessed Sex and Gender Information Value Date Recorded Sex Assigned at Not on file Gender Identity Not on file Sexual Orientation Not on file documented as of this encounter Plan of Treatment Not on file documented as of this encounter Procedures Procedure Name Priority Date/Time Associated Diagnosis Comments CYTOPATHOLOGY Routine 08/16/2016 0:00 EST documented in this encounter Results * CYTOPATHOLOGY (08/16/2016 0:00 EST) Pathology Report: CYTOPATHOLOGY REPORT Reports generated via electronic interface contain original data; however they are lacking the format of the original report. Caution should be taken when reading/interpreti ng unformatted reports. Name: ? SHILOH ANDERSON ? Accession #: ? [id number] : ? 1945 (Age: 71) ??F ?Collect Date: ? 08/16/2016 Location: ? [facility] ? Receive Date: ? 08/19/2016 Provider: ? NUVIA COHEN MD Copy to: ? CYTOLOGIC DIAGNOSIS: URINE, BARBOTAGE, CYTOLOGIC EVALUATION: - Negative for malignant cells. - Reactive urothelial cells present, consistent with instrumentation effect. - Background of acute inflammation and sanjuanita-shaped bacteria. Document reviewed and electronically signed by: ? ASIM GUTIERREZ MD Report Date: ??08/20/2016 12:43 By the signature above, the attending physician certifies that he/she has personally conducted a gross and/or microscopic examination of the described specimens and rendered or confirmed the above diagnosis. Specimen Type: ? Urine, Barbotage Clinical History: ? 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 Gross Description: ? 120ccs of clear yellow fluid (CytoLyt added) were received and processed by selective cellular enhancement technique. ? End of Report [facility] 08/16/2016 08/19/2016 16: 13 EST Nuvia Cohen MD PATHOLOGY ORDERABLES [facility] [address] [place] [address] documented in this encounter Visit Diagnoses Not on filedocumented in this encounter Care Teams Surgical Technologist Relationship Specialty Start Date End Date Cristy Al, KUSUM [facility] [address] [place] [address] PCP - General 02/21/12 documented as of this encounter
--- OUTSIDE RECORDS SUMMARY | 2024-03-10 01:27 | XMS_ITS | Encounter Summary ---
Author Organization [facility] Address [address] [place] [address] Care Team Providers Care Cleaning Associate Name Role Phone Unknown, Provider Primary Care Provider [phone] Encounter Details Date Type Department Care Team (Late st Contact Info) Description 02/18/2012 Results Only [facility] - [facility] [address] [place], [place] [address] Cristian Mendoza, [facility] [place] [address] Social History Tobacco Use Types Packs/Day Years Used Date Smoking Tobacco: Never Assessed Sex and Gender Information Value Date Recorded Sex Assigned at Not on file Gender Identity Not on file Sexual Orientation Not on file documented as of this encounter Plan of Treatment Not on file documented as of this encounter Procedures Procedure Name Priority Date/Time Associated Diagnosis Comments SURGICAL PATHOLOGY Routine 02/18/2012 0:00 EDT documented in this encounter Results * SURGICAL PATHOLOGY (02/18/2012 0:00 EDT) Pathology Report: SURGICAL PATHOLOGY REPORT Reports generated via electronic interface contain original data; however they are lacking the format of the original report. Caution should be taken when reading/interpreting unformatted reports. Name: ? SHILOH ANDERSON ? Accession #: ? [id number] ? : ? 1945 (Age: 66) ??F ? Collect Date: ? 02/18/2012 ? Location: ? [facility] ? Receive Date: ? 02/19/2012 ? Provider: CRISTIAN MENDOZA DO Copy to: LEX SON NUCLEAR EQUIPMENT DESIGN ENGINEER ? Final Pathologic Diagnosis: ? 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 ??See comment. Comment: ? The sections show proliferative synovitis with lymphocytes and plasma cells. ??Although pathognomonic features of rheumatoid arthritis are not noted, the presence of plasma cells raises the possibility. ??Serologic studies may prove useful. ??Buttonhole Tacker sections were reviewed at intradepartmental consultation conference. ??(Dr. Dickey)/[facility] ?? Document reviewed and electronically signed by: ALON DICKEY MD Report ??Date: 02/21/2012 12:53 By the signature above, the attending physician certifies that he/she has personally conducted a gross and/or microscopic examination of the described specimens and rendered or confirmed the above diagnosis. Specimen(s) Received: ? Synovium right knee Clinical History: ? rheumatoid disease Gross Description: ? Received in formalin labelled Justin, Shiloh and synovium right knee, ? rheumatoid disease is an 8.0 x 3.0 x 2.5 cm irregular portion of fibrofatty and fibromembranous tissue. ??One side of the specimen is covered by a cornejo-white, membranous lining that is diffusely covered by shaggy, pink-lenz, papillary excrescences. ??The remainder of the specimen consists of yellow, lobulated fibrofatty tissue with no nodules or masses present. ??Buttonhole Tacker sections are submitted as (A1) through (A3). ??(Eloy Haines)/bhargav End of Report ROSANA SALINAS 02/18/2012 02/19/2012 8:4 6 EDT Cristian Mendoza DO PATHOLOGY ORDERAB LES Performing Organization Address City/State/[facility] Co de Phone Number ROSANA [facility] [address] [place] [address] documented in this encounter Visit Diagnoses Not on filedocumented in this encounter Care Teams Cleaning Associate Relationship Specialty Start Date End Date Unknown, Provider, PCP - General 02/19/12 02/20/12 documented as of this encounter
--- OUTSIDE RECORDS SUMMARY | 2024-03-10 01:27 | XMS_ITS | Encounter Summary ---
Author Organization [facility] Address [address] [place] [address] Care Team Providers Care Improvement Lead Name Role Phone Wilma Nance MD Primary Care Provider [phone] Reason for Visit * Reason Comments Leg Injury Encounter Details Date Type Department Care Team (Late st Contact Info) Description 06/21/2017 3:05 PM EST - 06/21/2017 5:38 PM EST Emergency [facility] Emergency Department [address] [place] [address] [place] [id number] Mireya Villanueva MD [address] [place] [address] [place] [address] Discharge Disposition: Home or Self Care Social [...] Mass Index 42.52 06/21/2017 2:51 PM EST documented in this encounter Functional Status Functional Status Response Date of [...] years old or older) No 06/21/2017 Active documented as of this encounter Discharge Instructions * Attachments The following attachments cannot be sent through Care Everywhere. * LACERATIONS: MALIHA (WOLOF) documented in this encounter Medications at Time of Discharge Medication Sig Dispensed Refills Start Date End Date fentaNYL 25 MCG/HR Patch [address] onto the skin every 72 hours 0 levoTHYROxine 175 MCG Tab Take by mouth daily 0 lisinopril 20 MG Tab Take by mouth daily 0 Multiple Vitamin (MULTIVITAMIN) Tab Take 1 Tab by mouth daily 0 naproxen 500 MG Tab Take 550 mg by mouth 2 times daily (with meals) 0 sertraline 100 MG Tab Take by mouth daily 0 documented as of this encounter ED Notes * Mireya Villanueva MD - 06/21/2017 5:07 PM ESTAssociated Order(s): LACERATION REPAIR Images from the original note were not included. History Chief Complaint Patient presents with ??? Leg Injury Chief Complaint: leg laceration HPI This is a 71 y.o. female who presents with laceration to lower left leg. She [place] in the [place] when she tripped over branch and sustained a 10 cm laceration to her lower leg. It is still bleeding. Her tetanus is unknown if it is up-to-date or not. No other injuries. No numbness or tingling distally. She takes no blood thinners. Past Medical History: Diagnosis Date ??? Arthritis ??? Degenerative lumbar disc ??? Fibromyalgia ??? Thyroid disease History reviewed. No pertinent surgical history. No family history on file. Social History Substance Use Topics ??? Smoking status: Current Every Day Smoker Packs/day: 1.00 Types: Cigarettes ??? Smokeless tobacco: Never Used ??? Alcohol use 2.4 oz/week 4 Cans of beer per week Comment: daily drinker Review of Systems Constitutional: Negative for activity change, chills and fever. Musculoskeletal: Negative for joint swelling. Skin: Positive for wound. Negative for color change, pallor and rash. Neurological: Negative for weakness, light-headedness and numbness. Physical Exam BP 139/73 (Patient Position: Sitting) Pulse 81 Temp 36.9 ??C (98.4 ??F) (Oral) Resp 18 Ht 1.6 m (5' 2.99) Wt 108.9 kg (240 lb) SpO2 97% BMI 42.52 kg/m2 Physical Exam Constitutional: She appears well-developed and well-nourished. HENT: Head: Normocephalic and atraumatic. Eyes: Lids are normal. Right eye exhibits no discharge and no exudate. Left eye exhibits no discharge and no exudate. Pulmonary/Chest: Effort normal. No accessory muscle usage. No respiratory distress. Musculoskeletal: Normal range of motion. Legs: 10 cm long, 8 mm deep, gaping 3-4 cm. Wound is oozing. Neurological: She is alert. Skin: Skin is warm, dry and intact. Psychiatric: She has a normal mood and affect. Her speech is normal. Nursing note and vitals reviewed. Lac Repair Date/Time: 06/21/2017 5:08 PM Performed by: MIREYA VILLANUEVA Authorized by: MIREYA VILLANUEVA Consent: Consent obtained: Verbal Consent given by: Patient Risks discussed: Infection, pain and retained foreign body Anesthesia (see MAR for exact dosages): Anesthesia method: Local infiltration Local anesthetic: Lidocaine 1% WITH epi Laceration details: Location: Leg Leg location: L lower leg Length (cm): 10 Depth (mm): 8 Repair type: Repair type: Simple Exploration: Hemostasis achieved with: Direct pressure and epinephrine Wound exploration: wound explored through full range of motion and entire depth of wound probed andvisualized Wound extent: no foreign bodies/material noted, no muscle damage noted, no tendon damage noted, no underlying fracture noted and no vascular damage noted Contaminated: no Treatment: Area cleansed with: Lynnette-Gerda Amount of cleaning: Standard Irrigation solution: Sterile saline Visualized foreign bodies/material removed: no Skin repair: Repair method: Crane Number of maliha: 15 Post-procedure details: Dressing: Antibiotic ointment Patient tolerance of procedure: Tolerated well, no immediate complications MDM (ED Course and Disposition) ASSESMENT and PLAN This is a 71 y.o. female who presents with large laceration of the lower leg. Area was closed with 15 maliha. She will be given follow-up with primary care doctor to have these removed in 7-10 days.She is advised that I did not see any foreign bodies there is no chance foreign bodies can exist. She is to watch for redness swelling or drainage at the site and return right away for antibiotics. She agrees to this plan. Tetanus shot was given. Encounter Diagnosis Name Primary? Laceration of left leg, initial encounter Yes ED Course MDM: : Refer to text in Assessment and Plan ED CRITICAL CARE: Critical Care: No Mireya Villanueva MD 06/21/17 1710 * Manuela Murrell RN - 06/21/2017 2:50 PM EST Patient to ED from home with family. Patient was out hiking and cut by down branch that she attempted to step over; patient with bleeding controlled upon arrival. Laceration to left lower leg. Patient with pressure dressing of towel and tape applied by family. Patient states she take high dose aleve at home. Patient denies falling. Denies other injuries. documented in this encounter Plan of Treatment Not on file documented as of this encounter Procedures Procedure Name Priority Date/Time Associated Diagnosis Comments LACERATION REPAIR Routine 06/21/2017 5:1 0 PM EST documented in this encounter Results * LACERATION REPAIR (06/21/2017 5:10 PM EST) Narrative .MANUAL ENTRY (EXTERNAL LAB) - 06/21/2017 5:10 PM EST Mireya Villanueva MD ? 06/21/2017 ??5:10 PM Lac Repair Date/Time: 06/21/2017 5:08 PM Performed by: MIREYA VILLANUEVA Authorized by: MIREYA VILLANUEVA Consent: ??Consent obtained: ??Verbal ??Consent given by: ??Patient ??Risks discussed: ??Infection, pain and retained foreign body Anesthesia (see MAR for exact dosages): ??Anesthesia method: ??Local infiltration ??Local anesthetic: ??Lidocaine 1% WITH epi Laceration details: ??Location: ??Leg ??Leg location: ??L lower leg ??Length (cm): ??10 ??Depth (mm): ??8 Repair type: ??Repair type: ??Simple Exploration: ??Hemostasis achieved with: ??Direct pressure and epinephrine ??Wound exploration: wound explored through full range of motion and entire depth of wound probed and visualized ?Wound extent: no foreign bodies/material noted, no muscle damage noted, no tendon damage noted, no underlying fracture noted and no vascular damage noted ?Contaminated: no ?? Treatment: ??Area cleansed with: ??Shur-Clens ??Amount of cleaning: ??Standard ??Irrigation solution: ??Sterile saline ??Visualized foreign bodies/material removed: no ?? Skin repair: ??Repair method: ??Crane ??Number of maliha: ??15 Post-procedure details: ??Dressing: ??Antibiotic ointment ??Patient tolerance of procedure: ??Tolerated well, no immediate complications Mireya Villanueva MD PROCEDURE/MINOR SURG ICAL ORDERABLES .MANUAL ENTRY (EXTERNAL LAB) Please Refer to Scanned Lab Report documented in this encounter Visit Diagnoses Diagnosis Laceration of left leg, initial encounter- Primary documented in this encounter Administered Medications Inactive Administered Medications - up to 3 most recent administrations Medication Order MAR Action Action Date Dose Rate Site lidocaine-EPINEPHrine 1 %-1: injection 50 mg 50 mg (5 mL), Intradermal, Once, On 06/21/17 at 1645, For 1 dose Given by Other 06/21/2017 5:27 PM EST 50 mg documented in this encounter Active and Recently Administered Medications Times are shown in EST. Scheduled Medication Order 06/19/2017 06/20/2017 06/21/2017 lidocaine-EPINEPHrine 1 %-1: injection 50 mg (COMPLETED) 50 mg (5 mL), Intradermal, Once, 06/21/17 at 1645, For 1 dose 1727 (Given by Other - Provider: Juan Luis Garcia RN) documented in this encounter Care Teams Improvement Lead Relationship Specialty Start Date End Date Wilma Nance MD [address] [place] [address] PCP - General 06/21/17 documented as of this encounter
--- OUTSIDE RECORDS SUMMARY | 2024-03-10 01:27 | XMS_ITS | Clinical Summary ---
Author Organization [facility] Address [address] [place] [address] Care Team Providers Care Vehicle Service Attendant Name Role Phone Wilma Nance MD Primary Care Provider Allergies No known active allergies Medications Medication [...] Mass Index 42.52 06/21/2017 2:51 PM EST Plan of Treatment Not on file Insurance Payer Benefit Plan / Group Subscriber ID Effective Dates Phone Address Type MEDICARE MEDICARE A AND B [id number] 2008-Pres ent [address] [place] [address] Medicare BCBS [employer] [id number] 2013-Prese nt [address] [place] [address] Care Teams Vehicle Service Attendant Relationship Specialty Start Date End Date Wilma Nance MD [address] [place] [address] [place] [address] PCP - General 06/21/17
--- OUTSIDE RECORDS SUMMARY | 2024-03-10 01:27 | XMS_ITS | Encounter Summary ---
Author Organization [facility] Address [address] [place] [address] Care Team Providers Care Application Designer Name Role Phone Unavailable Primary Care Provider Unavailabl e Encounter Details Date Type Department Care Team (Late st Contact Info) Description 03/07/2004 Results Only [facility] - Map conversion [address] [place] [address] Cristy Son, [facility] [address] [place], [place] [id number] Social History Tobacco Use Types Packs/Day Years Used Date Smoking Tobacco: Never Assessed Sex and Gender Information Value Date Recorded Sex Assigned at Not on file Gender Identity Not on file Sexual Orientation Not on file documented as of this encounter Plan of Treatment Not on file documented as of this encounter Procedures Procedure Name Priority Date/Time Associated Diagnosis Comments CYTOPATHOLOGY Routine 03/07/2004 0:00 EDT documented in this encounter Results * CYTOPATHOLOGY (03/07/2004 0:00 EDT) Pathology Report: CYTOPATHOLOGY REPORT Reports generated via electronic interface contain original data; however they are lacking the format of the original report. Caution should be taken when reading/interpreti ng unformatted reports. Name: ? SHILOH ANDERSON ? Accession #: ? [id number] : ? 1945 (Age: 58) ??F ?Collect Date: ? 03/07/2004 Location: ? [facility] ? Receive Date: ? 03/09/2004 Provider: ?CRISTY SON VENDOR REPRESENTATIVES Copy to: ? Specimen/Source: ?ThinPrep Pap Test, Cervix/Endocervix Last Menstrual Period: ? 10 Years Hormonal/Contracep tive Status: ? Hormone Replacement Therapy ? SPECIMEN ADEQUACY ? Satisfactory for Evaluation - transformation zone component absent GENERAL CATEGORIZATION ? Negative for Intraepithelial Lesion or Malignancy ? Document reviewed and electronically signed by: ? ADILIA Olivares(ASCP) ? Report Date: ??03/13/2004 11:47 End of Report ROSANA SALINAS 03/07/2004 03/09/2004 Cristy Son NP PATHOLOGY ORDERABLES ROSANA SALINAS [address] [place] [address] documented in this encounter Visit Diagnoses Not on filedocumented in this encounter
--- OUTSIDE RECORDS SUMMARY | 2024-03-10 01:27 | XMS_ITS | Clinical Summary ---
Author Organization [facility] Address [address] [place] [address] Care Team Providers Care Bottle Labeler Name Role Phone MikaelaCristy Delmi NOE Primary Care Provider [phone] Encounters Date Type Department Care Team Description 01/01/2024 Lab Requisition [facility] Pathology & Laboratory Medicine - [facility] [address] [place] [address] Outr Resulting Lab, Provider from Last 3 Months Social History Tobacco Use Types Packs/Day Years Used Date Smoking Tobacco: Never Assessed Interpersonal Safety Answer Date Record ed Physically Hurt Never 02/27/2020 Verbally Threaten Not on file 02/27/2020 Sex and Gender Information Value Date Recorded Sex Assigned at Not on file Gender Identity Not on file Sexual Orientation Not on file Plan of Treatment Health Maintenance Due Date Last Done Comments RSV Immunization ( o r 60+ Years) (1 - 1-dose 60+ series) 2003 Fall Risk Screening 2008 COVID-19 Vaccine ( season) 2023 Procedures Procedure Name Priority Date/Time Associated Diagnosis Comments ANTI NUCLEAR AB (LUIS), IFA Routine 01/01/2024 14:14 EDT from Last 3 Months Results * (ABNORMAL) ANTI NUCLEAR AB (LUIS), IFA (01/01/2024 14:14 EDT) LUIS Interpretation Positive(A) Negative 01/02/2024 12:49 EDT [facility] Comment: For titers greater [...] Pattern 1 1:160 Homogeneous 01/02/2024 12:49 EDT [facility] Blood VENOUS BLOOD / Unknown 01/01/2024 14:14 EDT 01/01/2024 21:22 EDT Narrative [facility] - 01/02/2024 12:49 EDT Results were obtained with the [employer] NOVA Lite HEp-2 LUIS Kit by indirect immunofluorescence. Provider Outr Resulting Lab IMMUNOLOGY A ND SEROLOGY ORDERABLES [facility] [address] [place], [place] [address] from Last 3 Months Shiloh Anderson Marty Personal/Family Self 1945 [address] [facility] [address] Jenise Andersonara Marty Personal/Family Self 1945 [address] [facility] [address] Justin Shiloh Marty Personal/Family Self 1945 [address] [facility] [place] [address] Care Teams Bottle Labeler Relationship Specialty Start Date End Date Cristy Al NP [facility] [address] [place] [address] PCP - General 02/21/12
--- OUTSIDE RECORDS SUMMARY | 2024-03-10 01:27 | XMS_ITS | Encounter Summary ---
Author Organization [facility] [place] [address] [address] Care Team Providers Care Filler Shredding Machine Loader Name Role Phone Wilma Nance MD Primary Care Provider [phone] Encounter Details Date Type Department Care Team (Latest Contact Info) Description 07/11/2023 4:00 PM EST TH Visit (TeleHealth) Hematology/Oncology at [address] [address] Sony Lyons MD [facility] [place] [address] Malignant neoplasm of transverse colon Social History Tobacco Use Types Packs/Day [...] on file documented as of this encounter Progress Notes * Sony Lyons MD - 07/11/2023 4:00 PM EST Subjective Patient ID: Shiloh Anderson [...] Category: pT3 pN Category: pN0 Prior Biopsy ([facility] Standard 2.1) A biopsy was performed and read elsewhere and reviewed: [id number] part B Additional Findings Additional Findings: None identified D. CT a/p 03/07/23 - Impression: Severe colonic diverticulosis greatest in the sigmoid colon. No evidence of divertlculitis or obstruction. No evidence of mass or metastatic disease. Stable mild biliary dilatation CT chest 05/16/23 - Impression: 1. No evidence of significant lung nodules. No infiltrates nor pleural effusions. No intrathoracic adenopathy 2. Slight thickening of peripheral interlobular space. May indicate an element of mild interstitialfibrosis. 3. Pancreatic cyst vs invagination of fat partially visualized on this study at the level of the pancreatic body. Can be further studied with pancreatic protocol MRI MRI abd 07/10/23 - Impression: 1. 1 cm focus of fat signal intensity near the junction of the body and tail of the pancreas. This likely reflects normal fat. This has been seen on CT examinations dating back to 2016. 2. No evidence of suspicious pancreatic mass 3. Chiolelithiasis with stable extrahepatic biliary ductal dilatation. No evidence of choledocholithiasis 4. Simple bilateral renal cysts. No follow up is recommended 2. History of basal cell carcinoma 3. [...] S/p bilateral shoulder surgery 22. Genetic testing 2022 - Result: [facility]'s CancerNext-Expanded Panel showed no mutation was detected. [...] NF1, NF2, NTHL1, PALB2, PHOX2B, PMS2, POT1, GYQQM9T, PTCH1, PTEN, RAD51C, RAD51D, RB1, RECQL, RET, SDHA, SDHAF2, SDHB, SDHC, SDHD, SMAD4, SMARCA4, SMARCB1, SMARCE1, STK11, SUFU, GDKH830, TP53, TSC1, TSC2, VHL and XRCC2 (sequencing and deletion/duplication); AXIN2, CTNNA1, EGFR, EGLN1, HOXB13, KIT, MITF, MSH3, PDGFRA, POLD1 and POLE (sequencing only); EPCAM and GREM1 (deletion/duplication only). A variant of uncertain significance (VUS) was detected in the BRCA1 gene, specifically c.2534T>G(p.I845R). HPI Shiloh is seen for evaluation and management of colon cancer. The history is summarized above. Today's visit was changed to a telephone encounter because she forgot about today's visit. Shiloh is by herself. She is doing pretty well. She is doing fair. She has recovered well from the surgery but has a number of chronic issues. She has long standing low back pain for which she is on a fentanyl patch and immediate release morphine. Her QOL has been better on the fentanyl patch as this allows her to be up doing more. 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 This is painful and extends to just above her knee. She is followed Dr. Abdalla in [place]. Her incision is well healed. Her bowels are better than they were prior to the surgery. She goes 1-2 times per day. She has felt less fa tigued as well. Her appetite is good. She has lost 30-40#, intentionally. Soc Hx: Lives in [place], [place] Tob - Current (quits and restarts frequently) - she plans to try quitting again with the help of nicotine replacement and counseling. 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 Review of Systems Objective Physical Exam Vitals reviewed. Constitutional: General: She is not in acute distress. HENT: Head: Normocephalic and atraumatic. Mouth/Throat: Pharynx: Oropharynx is clear. No oropharyngeal exudate. Eyes: General: No scleral icterus. Cardiovascular: Rate and Rhythm: Normal rate and regular rhythm. Pulmonary: Effort: Pulmonary effort is normal. No respiratory distress. Breath sounds: No wheezing or rales. Abdominal: General: There is no distension. Palpations: There is no mass. Tenderness: There is no abdominal tenderness. There is no guarding. Comments: Abdominal incision well healed Musculoskeletal: General: No swelling. Lymphadenopathy: Cervical: No cervical adenopathy. Upper Body: Right upper body: No supraclavicular adenopathy. Left upper body: No supraclavicular adenopathy. Skin: General: Skin is warm and dry. Findings: No rash. Neurological: General: No focal deficit present. Mental Status: She is alert. Psychiatric: Mood and Affect: Mood normal. Labs: (04/29/22) WBC/ANC - 6.12/2969, Hgb/Hct - 14.2/43.2, Plts - 208,000. BUNCr - 22/0.9. Lytes andLFTs o/w unremarkable CEA 04/29/22 2.8 Assessment and Plan Shiloh Anderson [...] or PNI. Tumor budding score was 0. We reviewed the diagnosis, prognosis and treatment options. This represents stage II colon cancer without high risk features. 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 This finding also is associated with relative resistance to Fluoropyrimidines. Therefore, if chemotherapy were given in this case, the recommendation would be for an oxaliplatin based regimen, ie Folfox of Capox. Given the lack of high risk features and the MMR deficiency however, any benefit related to chemotherapy is likely to be small and chemotherapy would generally not be recommemded. The overall prognosis here is good and I think observation is a very reasonable approach. 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 There does not appear to be any family h/o Casey associated tumors. Genetic testing did not show a germline mutation. Restaging CT a/p done in 02/2023 was negative for metastatic disease. Ct chest was done in 04/2023. There again was no evidence of metastatic disease. On the upper abdominal images, a cystic lesion was seen in the pancreas. This finding appears to have been present on CT's dating back to at least 2016. I spoke with the radiologist, Dr. Gillette, about this. He felt it may be slightly larger than on the scan years ago. 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 An MRI was done on 07/10/23 for further evaluation -this is read as showing an area of fat and no suspicious lesions in the pancreas. Therefore, no further evaluation is planned at this time. She is scheduled for a colonoscopy and EGD later this month. If there is anything found of concern we are happy to see her back. Otherwise we will plan to see her in about 4 months with labs and willplan to repeat a CT in 02/2024. I provided care to the patient today via telephone call. The total time associated with this visit was 15 minutes. documented in this encounter Plan of Treatment Upcoming Encounters Date Type Department Care Team (Late st Contact Info) Description 03/12/2024 1:00 PM EDT Office Visit Hematology/Oncology at [address] [address] Sony Lyons MD [facility] [place] [address] Dottie Lira [facility] [address] [place] [address] [place] [address] 03/19/2024 2:30 PM EDT Office Visit Dermatology at [address] [place] [address] Sam Johns MD [address] [facility], [place] [address] Scheduled Orders Name Type Priority Associated Diagnoses Orde r Schedule CBC (with Diff) Lab Routine Malignant neoplasm of transverse colon Expected: 11/13/2023 (Approximate), Expires: 05/14/2024 Comprehensive metabolic panel (non-fasting) Lab Routine Malignant neoplasm of transverse colon Expected: 11/13/2023 (Approximate), Expires: 05/14/2024 [facility] Lab Routine Malignant neoplasm of transverse colon Expected: 11/13/2023 (Approximate), Expires: 05/14/2024 documented as of this encounter Visit Diagnoses Diagnosis Malignant neoplasm of transverse colon documented in this encounter Care Teams Filler Shredding Machine Loader Relationship Specialty Start Date End Date Wilma Nance MD [address] [place] [address] PCP - General Family Medicine 09/18/17 documented as of this encounter
--- OUTSIDE RECORDS SUMMARY | 2024-03-10 01:27 | XMS_ITS | Encounter Summary ---
[place] [address] Care Team Providers Care Front End Developer Javascript Html Css Name Role Phone Wilma Nance MD Primary Care Provider [phone] Reason for Referral * Diagnostic Test (Routine) - New Request Specialty Diagnoses / Procedures Referred By Renan villavicencio Referred To Contact Radiology Diagnoses Malignant neoplasm of sigmoid colon Procedures CT Chest Abdomen Pelvis w Contrast (Generic) Dottie Lira APRN [address] [place] [address] DR [place] [address] Referral ID Status Reason Start Date Expiration Date Visits Requested Visits Authorized [id number] New Request Specialty Service Requested 11/14/2023 05/15/2025 1 1 Encounter Details Date Type Department Care Team (Late st Contact Info) Description 11/14/2023 11:30 AM EDT Office Visit Hematology/Oncology at [address] [phone] Dottie Lira APRN [address] [place] [address] DR [place] [address] Malignant neoplasm of transverse colon; Malignant neoplasm of sigmoid colon Social History [...] Mass Index 44.1 11/14/2023 11:23 AM EDT documented in this encounter Progress Notes * Dottie Lira APRN - 11/14/2023 11:30 AM EDT Subjective Patient ID: Shiloh Anderson is 78 y.o. Problem List: 1. Colon cancer, transverse [...] Category: pT3 pN Category: pN0 Prior Biopsy ([facility] Standard 2.1) A biopsy was performed and read elsewhere and reviewed: [id number] part B Additional Findings Additional Findings: None [...] renal cysts. No follow up is recommended E. Colonoscopy and EGD 10/16/23 - Final Diagnosis A. DUODENUM, BIOPSY: - Duodenal [...] change. - Deeper levels have been examined. 2. History of basal cell carcinoma 3. [...] surgery 22. Genetic testing 2022 - Result: [facility]'s CancerNext-Expanded Panel showed no mutation was detected. [...] NF1, NF2, NTHL1, PALB2, PHOX2B, PMS2, POT1, MTPWT8B, PTCH1, PTEN, RAD51C, RAD51D, RB1, RECQL, RET, SDHA, SDHAF2, SDHB, SDHC, SDHD, SMAD4, SMARCA4, SMARCB1, SMARCE1, STK11, SUFU, VAFI271, TP53, TSC1, TSC2, VHL and XRCC2 (sequencing and deletion/duplication); AXIN2, CTNNA1, EGFR, EGLN1, HOXB13, KIT, MITF, MSH3, PDGFRA, POLD1 and POLE (sequencing only); EPCAM and GREM1 (deletion/duplication only). A variant of uncertain significance (VUS) was detected in the BRCA1 gene, specifically c.2534T>G(p.I845R). HPI Shiloh is seen for evaluation and management of colon cancer. The history is summarized above. Shiloh is by herself in clinic today. Feeling generally well, no new or worsening pains. No changes in her bowels. Has been going to PT for balance issues, she thinks this might be helping a bit. She had an MRI Brain that was negative. Soc Hx: Lives in [place], [place] Tob - Current (quits and restarts frequently) - she plans to try quitting again with the help of nicotine replacement and counseling. 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 Review of Systems Constitutional: Negative for activity change, appetite change, fever and unexpected weight change. HENT: Negative. Respiratory: Positive for cough (Chronic, r/t smoking). Cardiovascular: Negative. Gastrointestinal: Negative. Genitourinary: Negative. Musculoskeletal: Negative. Neurological: Unsteady gait, being seen by PT Hematological: Negative. Psychiatric/Behavioral: Negative. Objective Physical Exam Vitals reviewed. Constitutional: General: She is not in acute distress. HENT: Head: Normocephalic and atraumatic. Mouth/Throat: Pharynx: Oropharynx is clear. No oropharyngeal exudate. Eyes: General: No scleral icterus. Cardiovascular: Rate and Rhythm: Normal rate. Pulmonary: Effort: Pulmonary effort is normal. No respiratory distress. Abdominal: General: There is no distension. Palpations: Abdomen is soft. Musculoskeletal: General: No swelling. Skin: General: Skin is warm and dry. Coloration: Skin is not jaundiced. Findings: No rash. Neurological: General: No focal deficit present. Mental Status: She is alert and oriented to person, place, and time. Psychiatric: Mood and Affect: Mood normal. BP 183/88 (Patient Position: Sitting) Pulse 74 Temp 36.1 ??C (96.9 ??F) (Temporal) Resp 18 Ht 157.5 cm (5' 2.01) Wt 109.4 kg (241 lb 3.2 oz) SpO2 96% BMI 44.10 kg/m?? Labs: WBC/ANC - 6., Hgb/Hct - 13.9/42.7, Plts - 190,000. BUNCr - 27/1.1 remainder of CMP otherwise unremarkable CEA 11/14/23 pending 05/16/23 3.2 02/05/23 3.6 04/29/22 2.8 Assessment and Plan Shiloh Anderson is 78 yo, seen for evaluation and management of [...] or PNI. Tumor budding score was 0. Treatment options were reviewed and given the good prognostic factors, it was decided to forgo adjuvant therapy. The MMR deficiency most likely represents an [...] on CT's dating back to at least 2017. Dr. Lyons discussed this with radiology.They felt it may be slightly larger than on the scan years ago. 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 An MRI was done on 07/10/23 for further evaluation - this is read as showing an area of fat and no suspicious lesions in the pancreas. Therefore, no further evaluation is planned at this time. A colonoscopy and EGD were done in 09/2023. The pathology report is above. Clinically, she appears to be doing well. We will plan to see her in about 4 months with labs and arepeat CT scan. BP elevated today, recommend home monitoring, she tells me it just gets elevated when she's here. Discussed smoking cessation, seeing a counselor about this soon. documented in this encounter Plan of Treatment Upcoming Encounters Date Type Department Care Team (Late st Contact Info) Description 03/12/2024 1:00 PM EDT Office Visit Hematology/Oncology at [address] [phone] Sony Lyons MD [facility] [place] [address] Dottie Lira APRN [address] [place] [address] DR [place] [address] 03/19/2024 2:30 PM EDT Office Visit Dermatology at [place] [address] [place] [address] Sam Johns MD [address] [facility], [place] [address] Scheduled Orders Name Type Priority Associated Diagnoses Orde r Schedule CT Chest Abdomen Pelvis w Contrast (Generic) Imaging Routine Malignant neoplasm of sigmoid colon Expected: 03/15/2024 (Approximate), Expires: 11/13/2024 CBC (with Diff) Lab Routine Malignant neoplasm of sigmoid colon Expected: 03/15/2024 (Approximate), Expires: 11/13/2024 Comprehensive metabolic panel (non-fasting) Lab Routine Malignant neoplasm of sigmoid colon Expected: 03/15/2024 (Approximate), Expires: 11/13/2024 CEA Lab Routine Malignant neoplasm of sigmoid colon Expected: 03/15/2024 (Approximate), Expires: 11/13/2024 documented as of this encounter Visit Diagnoses Diagnosis Malignant neoplasm of transverse colon Malignant neoplasm of sigmoid colon documented in this encounter Care Teams Front End Developer Javascript Html Css Relationship Specialty Start Date End Date Wilma Nance MD [address] [place] [address] PCP - General Family Medicine 09/18/17 documented as of this encounter
--- OUTSIDE RECORDS SUMMARY | 2024-03-10 01:27 | XMS_ITS | Encounter Summary ---
[place] [address] Care Team Providers Care Research Statistician Name Role Phone Wilma Nance MD Primary Care Provider [phone] Reason for Visit * Reason Onset Date Comments Prior Authorization 02/05/2024 Encounter Details Date Type Department Care Team (Late st Contact Info) Description 02/05/2024 Telephone Hematology [place] [phone] Gloria Villagomez Prior Authorization Social History Tobacco Use Types Packs/Day Years [...] encounter Miscellaneous Notes * Telephone Encounter - Gloria Villagomez - 02/05/2024 2:40 PM EDT Procedure Prior Authorization Procedure/Cpt: 82359, 23513 ct c/a/p Rationale: C18.7 Health Plan: BCBS [place] Authorizing Vendor: as above Service Order/Case ID: Authorization #: Effective Date: Status: PA not required Call Ref # : [id number] Rendering Facility: [facility] documented in this encounter Plan of Treatment Upcoming Encounters Date Type Department Care Team (Late st Contact Info) Description 03/12/2024 1:00 PM EDT Office Visit Hematology/Oncology at [address] [place] [address] Sony Lyons MD [facility] [place] [place] [address] Dottie Lira APRN [address] [place] [address] DR HEMATOLOGY AND ONCOLOGY [place], [place] [address] 03/19/2024 2:30 PM EDT Office Visit Dermatology at [place] [address] [facility] [place] [address] Sam Johns MD [address], [place] [address] documented as of this encounter Visit Diagnoses Not on filedocumented in this encounter Care Teams Research Statistician Relationship Specialty Start Date End Date Wilma Nance MD [address] [place] [address] PCP - General Family Medicine 09/18/17 documented as of this encounter
--- OUTSIDE RECORDS SUMMARY | 2024-03-10 01:27 | XMS_ITS | Encounter Summary ---
Author Organization [facility] Address [facility] [place] [address] Care Team Providers Care Flour Mixer Name Role Phone Wilma Nance MD Primary Care Provider [phone] Encounter Details Date Type Department Care Team (Latest Contact Info) Description 03/11/2023 Travel Social History Tobacco Use Types Packs/Day [...] 1:00 PM EDT Office Visit Hematology/Oncology at [address] [phone] Sony Lyons MD [facility] [place] [address] Dottie Lira APRN [address] [place] [address] DR HEMATOLOGY AND ONCOLOGY [place], [place] [address] 03/19/2024 2:30 PM EDT Office Visit Dermatology at [address] [place] [phone] Sam Johns MD [address], [place] A DERMATOLOGY [place], [place] [phone] documented as of this encounter Visit Diagnoses Not on filedocumented in this encounter Care Teams Flour Mixer Relationship Specialty Start Date End Date Wilma Nance MD [address] [place] [address] PCP - General Family Medicine 09/18/17 documented as of this encounter
--- OUTSIDE RECORDS SUMMARY | 2024-03-10 01:27 | XMS_ITS | Encounter Summary ---
Author Organization [facility] Address [address] [place] [address] Care Team Providers Care Allergy Specialist Name Role Phone Cristy Al NP Primary Care Provider [phone] Encounter Details Date Type Department Care Team (Late st Contact Info) Description 04/17/2022 Lab Requisition [facility] Pathology & Laboratory Medicine - [facility] [address] [place] [address] Ghislaine Carrillo MD [address] [place] [address] [address] [place], [place] [address] Encounter for screening for malignant neoplasm of rectum; Encounter for screening for malignant neoplasm of [...] Date/Time Associated Diagnosis Comments SURGICAL PATHOLOGY Today 04/17/2022 7:52 EDT Encounter for screening for malignant neoplasm of rectum Encounter for screening for malignant neoplasm of colon documented in this encounter Results * SURGICAL PATHOLOGY (04/17/2022 7:52 EDT) Note to Patient The following pathology results have been interpreted by your pathologist and may be available to you before your health provider has had the opportunity to review them. Please allow time for your provider to receive these results and explore management options, if applicable. 04/23/2022 10:25 [facility] Final Diagnosis A. COLON, 60 CMS, MASS, BIOPSY: - Invasive moderately differentiated adenocarcinoma. - See comment. 04/23/2022 10:25 [facility] Diagnosis Comment RESULTS OF IMMUNOHISTOCHEMICAL STAINING: Loss of MLH1 and PMS2 and retained expression of MSH2 and MSH6 proteins INTERPRETATION: The majority of cancers with loss of MLH1/PMS2 protein expression are associated with somatic changes rather than an inherited mutation (Casey syndrome). However, if additional testing to rule out Casey syndrome is warranted in this individual, additional molecular testing (specifically MLH1 Promoter Methylation) can be ordered upon obtaining preauthorization or an advanced beneficiary notice. ANTIBODY (CLONE) (BLOCK): RESULT MLH1 (M1, [place]) (block A1): Loss of expression in the tumor PMS2 (A16-4, [place]) (block A1): Loss of expression in the tumor MSH2 (A598-7459, [place]) (block A1): Retained expression in tumor MSH6 (SP93, [place]) (block A1): Retained expression in tumor Internal controls: Adequate NOTE: One or more of the reagents used in immunohistochemical testing in this case may not have been cleared or approved by the U.S. Food and Drug Administration (FDA). The FDA has determined that such clearance or approval is not necessary. These tests are used for clinical purposes. They should not be regarded as investigational or for research. These reagents' performance characteristics have been determined by [facility] and/or by a referring laboratory. The positive and negative controls worked appropriately. This laboratory is certified under the Clinical Laboratory Improvement Amendments of 1988 (CLIA-88) as qualified to perform high complexity clinical laboratory testing. 04/23/2022 10:25 [facility] Attestation By the signature below, the attending physician certifies that they have 1) personally conducted a gross and/or microscopic examination of the described specimen(s), and/or personally interpreted the results of laboratory testing of the described specimen(s), and 2) personally rendered or confirmed the above diagnosis. 04/23/2022 10:25 [facility] at 1025 Clinical History Screening 04/23/2022 10:25 EDT [facility] Gross Description A. Received in formalin labelled with proper patient identification (initials H, B) and 1. Mass @ 60 cm are 6 lenz tissues (0.5 x 0.3 x 0.1 cm to 0.2 by less than 0.1 by less than 0.1 cm). Entirely submitted in A1-A2. Please note the smallest tissue may not survive processing. ASHLYN SILVIA 04/18/2022 8:05 04/23/2022 10:25 EDT [facility] Performing Lab [facility] 04/23/2022 10:25 EDT [facility] Scanned Images 04/23/2022 10:25 EDT [facility] Tissue ENTIRE SIGMOID COLON / Unknown 04/17/2022 7:52 EDT 04/17/2022 16:59 EDT Ghislaine Carrillo MD PATHOLOGY ORDERA E[facility]K [facility] [address] [place] [address] documented in this encounter Visit Diagnoses Diagnosis Encounter for screening for malignant neoplasm of rectum Screening for malignant neoplasm of the rectum Encounter for screening for malignant neoplasm of colon Special screening for malignant neoplasms, colon documented in this encounter Care Teams Allergy Specialist Relationship Specialty Start Date End Date Cristy Al NP [facility] [address] [place] [address] PCP - General 02/21/12 documented as of this encounter
--- OUTSIDE RECORDS SUMMARY | 2024-03-10 01:27 | XMS_ITS | Encounter Summary ---
Author Organization [facility] Address [address] [place] [address] Care Team Providers Care Watch Leader Name Role Phone Cristy Al [employer]PRESENT[employer]IVE Primary Care Provider [phone] Encounter Details Date Type Department Care Team (Latest Contact Info) Description 01/15/2019 15:18 EDT - 01/15/2019 23:59 EDT Hospital Encounter [address] [address] Unknown, Provider, Discharge Disposition: Home or Self Care Social History Tobacco Use Types Packs/Day Years Used Date Smoking Tobacco: Never Assessed Sex and Gender Information Value Date Recorded Sex Assigned at Not on file Gender Identity Not on file Sexual Orientation Not on file documented as of this encounter Discharge Disposition Disposition Code Departure Means Destination Home or Self Residential documented in this encounter Plan of Treatment Not on file documented as of this encounter Visit Diagnoses Not on filedocumented in this encounter Care Teams Watch Leader Relationship Specialty Start Date End Date Cristy Al NP [facility] [address] [place] [address] PCP - General 02/21/12 documented as of this encounter
--- OUTSIDE RECORDS SUMMARY | 2024-03-10 01:27 | XMS_ITS | Encounter Summary ---
Author Organization [facility] [place] [address] Care Team Providers Care Card Doffer Name Role Phone Wilma Nance MD Primary Care Provider [phone] Encounter Details Date Type Department Care Team (Late Contact Info) Description 05/16/2023 Ancillary Procedure [place] [phone] Wilma Nance MD [address] [address] Social History Tobacco Use Types Packs/Day Years [...] PM EDT Office Visit Hematology/Oncology at [address] [phone] Sony Lyons MD [facility] [place] [address] Dottie Lira APRN [address] [place] [address] DR HEMATOLOGY AND ONCOLOGY [place], [place] [address] 03/19/2024 2:30 PM EDT Office Visit Dermatology at [place] [address] [place] [phone] Sam Johns MD [address] [facility] [address], [place] [address] documented as of this encounter Procedures Procedure Name Priority Date/Time Associated Diagnosis Comments FILM LIBRARY STORAGE ONLY CT CHEST Routine 05/16/2023 12:00 AM EDT documented in this encounter Results * Film Library- Storage Only CT Chest (05/16/2023 12:00 AM EDT) Narrative [facility] - 05/19/2023 9:09 AM EDT This exam is auto-finalizing. It's purpose is for storage only. Wilma Nance MD IMG FILM LIBRARY ORD ERABLES [place], [place] documented in this encounter Visit Diagnoses Not on filedocumented in this encounter Care Teams Card Doffer Relationship Specialty Start Date End Date Wilma Nance MD [address] [place] [address] PCP - General Family Medicine 09/18/17 documented as of this encounter
--- OUTSIDE RECORDS SUMMARY | 2024-03-10 01:27 | XMS_ITS | Encounter Summary ---
[place] [address] Care Team Providers Care Cloth Examiner Hand Name Role Phone Wilma Nance MD Primary Care Provider [phone] Reason for Visit * Reason Comments Annual Exam Encounter Details Date Type Department Care Team (Late st Contact Info) Description 03/11/2023 11:30 AM EDT Office Visit Dermatology at [address] [phone] Sam Johns MD [address] [facility] A DERMATOLOGY [place], [place] [phone] History of basal cell carcinoma; AK (actinic keratosis) Social History Tobacco Use Types Packs/Day Years [...] as of this encounter Progress Notes * Sam Johns MD - 03/11/2023 11:30 AM EDT Problem: 1. Skin checkup, 1 year 2. 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 She had an a lesion on her back that was somewhat irritated some months ago but this is desquamated and healed. Sounds like it was a seborrheic keratosis. She is the mother of 9 children, 2 boys and 7 girls. Today she is not here with her [place] got a dog. She has an irritated mole on the right base of her neck. Physical examination reveals a pleasant 77-year-old woman who has blue eyes and fair skin with moderate to severe solar damage of the chest and arms. There is no evidence of recurrent BCC on the upper right supra brow. She has a benign examination of the face and neck the chest the back hands arms forearms thighs and calves. However have diffuse mild actinic damage of the forehead onto her cheeksand on her nose. She has +1 pitting edema of both the left lower extremity today not involving her right lower extremity. She has an irritated seborrheic keratosis on the right base of her neck. Assessment plan: Benign skin examination in a patient with a history of BCCA right supra brow August 2015 1. Patient reassured his benign skin examination 2. Continue sun avoidance precautions 3. Return to clinic in 1 year Diffuse actinic damage forehead cheeks and nose 1. Begin 5-FU 5% cream apply once daily to face for 1 week on then 3 weeks off. Repeat for total of3 cycles. Dispense 40 g with 0 refills. This will be called into the [facility]. Seborrheic keratosis, irritated, right base of neck 1. Could consider LN 2 x 2 who the site. CC: Wilma Nance MD documented in this encounter Plan of Treatment Upcoming Encounters Date Type Department Care Team (Late st Contact Info) Description 03/12/2024 1:00 PM EDT Office Visit Hematology/Oncology at [address] [phone] Sony Lyons MD [facility] [place] [address] Dottie Lira APRN [address] [place] [address] [place] [address] 03/19/2024 2:30 PM EDT Office Visit Dermatology at [place] [address] [place] [phone] Sam Johns MD [address] [facility] [address] [address], FU[place] Geraldo DERMATOLOGY [place], [place] [address] documented as of this encounter Visit Diagnoses Diagnosis History of basal cell carcinoma Personal history of other malignant neoplasm of skin AK (actinic keratosis) Actinic keratosis documented in this encounter Care Teams Cloth Examiner Hand Relationship Specialty Start Date End Date Wilma Nance MD [address] [place] [address] PCP - General Family Medicine 09/18/17 documented as of this encounter
--- OUTSIDE RECORDS SUMMARY | 2024-03-10 01:27 | XMS_ITS | Encounter Summary ---
[place] [address] Care Team Providers Care Ground Crewman Name Role Phone Wilma Nance MD Primary Care Provider [phone] Encounter Details Date Type Department Care Team (Late st Contact Info) Description 04/15/2023 Telephone Hematology [place] [address] Gloria Villagomez Social History Tobacco Use Types Packs/Day Years [...] Miscellaneous Notes * Telephone Encounter - Gloria Veliz - 04/15/2023 4:01 PM EDT Procedure Prior Authorization Procedure/Cpt: 47898, 17313 ct c/a/p Rationale: C18.7 Health Plan: BCBS Vt Authorizing Vendor: as above Service Order/Case ID: Authorization #: Effective Date: Status: PA not required Call Ref # [id number] Rendering Facility: [facility] documented in this encounter Plan of Treatment Upcoming Encounters Date Type Department Care Team (Late st Contact Info) Description 03/12/2024 1:00 PM EDT Office Visit Hematology/Oncology at [address] [phone] Sony Lyons MD [facility] [place] [address] Dottie Lira APRN [address] [place] [address] DR HEMATOLOGY AND ONCOLOGY [place], [place] [address] 03/19/2024 2:30 PM EDT Office Visit Dermatology at [place] [address] [place] [address] Sam Johns MD [address], [place] [address] documented as of this encounter Visit Diagnoses Not on filedocumented in this encounter Care Teams Ground Crewman Relationship Specialty Start Date End Date Wilma Nance MD [address] [place] [address] PCP - General Family Medicine 09/18/17 documented as of this encounter
--- OUTSIDE RECORDS SUMMARY | 2024-03-10 01:27 | XMS_ITS | Encounter Summary ---
Author Organization [facility] Address [address] [place] [address] Care Team Providers Care Hand Drawer In Name Role Phone [place]Cristy mccollum KUSUM Primary Care Provider [phone] Encounter Details Date Type Department Care Team (Late st Contact Info) Description 03/13/2016 Results Only [facility]- [facility] [phone] Chrissy Alberto MD [address] [place] [address] [place] [address] Social History Tobacco Use Types Packs/Day Years Used Date Smoking Tobacco: Never Assessed Sex and Gender Information Value Date Recorded Sex Assigned at Not on file Gender Identity Not on file Sexual Orientation Not on file documented as of this encounter Plan of Treatment Not on file documented as of this encounter Procedures Procedure Name Priority Date/Time Associated Diagnosis Comments SURGICAL PATHOLOGY Routine 03/13/2016 17 :43 EDT CYTOPATHOLOGY Routine 03/13/2016 0:00 EDT documented in this encounter Results * SURGICAL PATHOLOGY (03/13/2016 17:43 EDT) Pathology Report: SURGICAL PATHOLOGY REPORT Reports generated via electronic interface contain original data; however they are lacking the format of the original report. Caution should be taken when reading/interpret ing unformatted reports. Name: ? SHILOH ANDERSON ? Accession #: ? [id number] ? : ? 1945 (Age: 70) ??F ? Collect Date: ? 03/13/2016 ? Location: ? [facility] ? Receive Date: ? 03/14/2016 ? Provider: CHRISSY ALBERTO MD Copy to: CRISTY SON COUNTER INTELLIGENCE AGENT ? Final Pathologic Diagnosis: OVARY AND FALLOPIAN TUBE, RIGHT, SALPINGO-OOPHOREC TORI: - ??Ovary: ? - Benign simple cyst (4.5 cm). See comment. - ??Fallopian tube: ? - Fallopian tube no specific pathologic features. Comment: Histologic sections of the ovary show a benign uniloculated cyst with an attenuated lining, precluding definitive classification. Dr. Rboerts 03/19/2016 11:08 AM Document reviewed and electronically signed by: BRI ARNETT MD Report ??Date: 03/20/2016 17:44 By the signature above, the attending physician certifies that he/she has personally conducted a gross and/or microscopic examination of the described specimens and rendered or confirmed the above diagnosis. Specimen(s) Received: Right adnexa Clinical History: RLQ pain, enlarged R ovary Gross Description: ? Received in formalin labelled with proper patient identification (initials H, B) and right adnexa is an intact cystic ovary (4.7 x 4.5 x 2.5 cm) with attached fimbriated fallopian tube (4.5 cm in length x 0.5 cm in diameter). The ovary has a lenz-white smooth capsule, and sectioning reveals a lynch-white 4.5 cm in greatest dimension smooth walled cystic structure which exudes a clear fluid. No excrescences are grossly identified. There is a minimal amount of residual ovary. The fallopian tube has a pink-lenz serosa and sectioning reveals a white cut surface with a pinpoint lumen throughout. Screen Printing Loader Unloader sections are submitted as follows: BLOCK TROY 1-2- ??cystic ovary 3- ??fallopian tube including two cross sections and one half of the fimbria Gaby Wise 03/15/2016 11:20 AM End of Report [facility] 03/13/2016 17:4 3 EDT 03/14/2016 17:43 EDT Chrissy Alberto MD PATHOLOGY ORDERABLES [facility] [address] [place] [address] * CYTOPATHOLOGY (03/13/2016 0:00 EDT) Pathology Report: CYTOPATHOLOGY REPORT Reports generated via electronic interface contain original data; however they are lacking the format of the original report. Caution should be taken when reading/interpret ing unformatted reports. Name: ? SHILOH ANDERSON ? Accession #: ? [id number] : ? 1945 (Age: 70) ??F ?Collect Date: ? 03/13/2016 Location: ? [facility] ? Receive Date: ? 03/15/2016 Provider: ? CHRISSY ALBERTO MD Copy to: ?CRISTY SON COUNTER INTELLIGENCE AGENT ? CYTOLOGIC DIAGNOSIS: PERITONEAL WASHING, CYTOLOGIC EVALUATION: - ??Negative for malignant cells. Document reviewed and electronically signed by: ? LEANNE ROSARIO MD Report Date: ??03/15/2016 12:14 By the signature above, the attending physician certifies that he/she has personally conducted a gross and/or microscopic examination of the described specimens and rendered or confirmed the above diagnosis. Specimen Type: ? Peritoneal Washing Clinical History: ? Right adnexal mass ? Gross Description: ? One vial of Cytolyt was received and processed by selective cellular enhancement technique. ? End of Report [facility] 03/13/2016 03/15/2016 7:4 2 EDT Chrissy Alberto MD PATHOLOGY ORDERABLES Performing Organization Address City/State/[facility] Co de Phone Number [facility] [address] [place] [address] documented in this encounter Visit Diagnoses Not on filedocumented in this encounter Care Teams Hand Drawer In Relationship Specialty Start Date End Date Cristy Son, KUSUM [facility] [address] [place] [address] PCP - General 02/21/12 documented as of this encounter
--- OUTSIDE RECORDS SUMMARY | 2024-03-10 01:27 | XMS_ITS | Encounter Summary ---
Author Organization [facility] Address [address] [place] [address] Care Team Providers Care Shrimp Trawler Name Role Phone Unavailable Primary Care Provider Unavailabl e Encounter Details Date Type Department Care Team (Late st Contact Info) Description 05/09/2011 Results Only [facility] - [facility] [address] [place], [place] [address] Cristy Son, KUSUM [facility] [address] [place] [address] Social History Tobacco Use Types Packs/Day Years Used Date Smoking Tobacco: Never Assessed Sex and Gender Information Value Date Recorded Sex Assigned at Not on file Gender Identity Not on file Sexual Orientation Not on file documented as of this encounter Plan of Treatment Not on file documented as of this encounter Procedures Procedure Name Priority Date/Time Associated Diagnosis Comments PAP TEST- RESULT ONLY Routine 05/09/2011 0:00 EDT documented in this encounter Results * PAP TEST- RESULT ONLY (05/09/2011 0:00 EDT) Pathology Report: CYTOPATHOLOGY REPORT Reports generated via electronic interface contain original data; however they are lacking the format of the original report. Caution should be taken when reading/interpreti ng unformatted reports. Name: ? SHILOH ANDERSON ? Accession #: ? [id number] : ? 1945 (Age: 65) ??F ?Collect Date: ? 05/09/2011 Location: ? [facility] ? Receive Date: ? 05/10/2011 Provider: ?CRISTY SON REDUCER Copy to: ? Specimen/Source: ?Pap Test, Cervix/Endocervix, ThinPrep Imaging System with manual evaluation Last Menstrual Period: ? years ? SPECIMEN ADEQUACY ? Satisfactory for Evaluation - transformation zone component absent GENERAL CATEGORIZATION ? Negative for Intraepithelial Lesion or Malignancy ? Document reviewed and electronically signed by: ? ADILIA Arriaza(ASCP) ? Report Date: ??05/16/2011 17:11 End of Report ROSANA SALINAS 05/09/2011 05/10/2011 Cristy Son NP PATHOLOGY ORDERABLES ROS[facility] SALINAS [address] [place] [address] documented in this encounter Visit Diagnoses Not on filedocumented in this encounter
--- OUTSIDE RECORDS SUMMARY | 2024-03-10 01:27 | XMS_ITS | Encounter Summary ---
Author Organization [facility] Address [address] [place] [address] Care Team Providers Care Assisted Living Manager Name Role Phone MikaelaCristy KUSUM Primary Care Provider [phone] Encounter Details Date Type Department Care Team (Late st Contact Info) Description 01/15/2019 Results Only [facility] [phone] Samy Banks MD [address] [place] [address] Social History Tobacco Use Types Packs/Day Years Used Date Smoking Tobacco: Never Assessed Sex and Gender Information Value Date Recorded Sex Assigned at Not on file Gender Identity Not on file Sexual Orientation Not on file documented as of this encounter Plan of Treatment Not on file documented as of this encounter Procedures Procedure Name Priority Date/Time Associated Diagnosis Comments SURGICAL PATHOLOGY Routine 01/15/2019 21 :23 EDT documented in this encounter Results * SURGICAL PATHOLOGY (01/15/2019 21:23 EDT) Pathology Report: SURGICAL PATHOLOGY REPORT Reports generated via electronic interface contain original data; however they are lacking the format of the original report. Caution should be taken when reading/interpret ing unformatted reports. Name: ? SHILOH ANDERSON ? Accession #: ? [id number] ? : ? 1945 (Age: 73) ??F ? Collect Date: ? 01/15/2019 ? Location: ? [facility] ? Receive Date: ? 01/15/2019 ? Provider: SAMY BANKS MD Copy to: ? Final Pathologic Diagnosis: GASTROESOPHAGEAL JUNCTION, BIOPSY: - Squamocolumnar mucosa with features of reflux esophagitis. - Negative for intestinal metaplasia and dysplasia. Document reviewed and electronically signed by: JASON LAW MD Report ??Date: 01/19/2019 08:40 By the signature above, the attending physician certifies that he/she has personally conducted a gross and/or microscopic examination of the described specimens and rendered or confirmed the above diagnosis. Specimen(s) Received: GE junction biopsy Clinical History: Family hx of esophageal Ca, GERD; clinical diagnosis code: ??K21.9, Z80.0 Gross Description: ? Received in formalin labelled with proper patient identification (initials H, B) and GE junction biopsy are four pink-lenz tissues (0.2 x 0.2 x 0.2 cm to 0.3 x 0.3 x 0.2 cm). Entirely submitted in 1. Dr. Stallworth 01/16/2019 11:43 AM End of Report [facility] 01/15/2019 21:2 3 EDT 01/15/2019 21:23 EDT Samy Banks MD PATHOLOGY ORDERABLES [facility] [address] [place] [address] documented in this encounter Visit Diagnoses Not on filedocumented in this encounter Care Teams Assisted Living Manager Relationship Specialty Start Date End Date Cristy Al NP [facility] [address] [place], [place] [address] PCP - General 02/21/12 documented as of this encounter
--- OUTSIDE RECORDS SUMMARY | 2024-03-10 01:27 | XMS_ITS | Encounter Summary ---
Author Organization [facility] Address [facility] [place] [address] Care Team Providers Care Napper Fixer Name Role Phone Wilma Nance MD Primary Care Provider [phone] Encounter Details Date Type Department Care Team (Latest Contact Info) Description 02/05/2023 Travel Social History Tobacco Use Types Packs/Day [...] 1:00 PM EDT Office Visit Hematology/Oncology at [address] [phone] [facility] [address] Dottie Lira APRN [address] [place] [address] DR HEMATOLOGY [place] ONCOLOGY [place], [place] [address] 03/19/2024 2:30 PM EDT Office Visit Dermatology at [address] [place] [place] [phone] Sam Johns MD [address], ANABEL A DERMATOLOGY [place], [place] [id number] documented as of this encounter Visit Diagnoses Not on filedocumented in this encounter Care Teams Napper Fixer Relationship Specialty Start Date End Date Wilma Nance MD [address] [place] [address] PCP - General Family Medicine 09/18/17 documented as of this encounter
--- OUTSIDE RECORDS SUMMARY | 2024-03-10 01:27 | XMS_ITS | Encounter Summary ---
Author Organization [facility] Address [address] [place] [address] Care Team Providers Care Votator Machine Operator Name Role Phone Cristy Al [employer]IL[employer]LLOW[employer] ASSEMBLER Primary Care Provider [phone] Encounter Details Date Type Department Care Team (Latest Contact Info) Description 03/13/2016 9:04 EDT - 03/13/2016 14:29 EDT Hospital Encounter [address] [address] Unknown, Provider, Discharge Disposition: Home or Self Care Social History Tobacco Use Types Packs/Day Years Used Date Smoking Tobacco: Never Assessed Sex and Gender Information Value Date Recorded Sex Assigned at Not on file Gender Identity Not on file Sexual Orientation Not on file documented as of this encounter Discharge Disposition Disposition Code Departure Means Destination Home or Self Custodial documented in this encounter Plan of Treatment Not on file documented as of this encounter Visit Diagnoses Not on filedocumented in this encounter Care Teams Votator Machine Operator Relationship Specialty Start Date End Date Cristy Al NP [facility] [address] [place] [address] PCP - General 02/21/12 documented as of this encounter
--- OUTSIDE RECORDS SUMMARY | 2024-03-10 01:27 | XMS_ITS | Encounter Summary ---
Author Organization [facility] Address [address] [place] [address] Care Team Providers Care Business Intelligence Engineer Name Role Phone Unavailable Primary Care Provider Unavailabl e Encounter Details Date Type Department Care Team (Late st Contact Info) Description 06/11/2005 Results Only [facility] - [facility] [address] [place] [address] Cristy Son, KUSUM [facility] [address] [place], [place] [id number] Social History Tobacco Use Types Packs/Day Years Used Date Smoking Tobacco: Never Assessed Sex and Gender Information Value Date Recorded Sex Assigned at Not on file Gender Identity Not on file Sexual Orientation Not on file documented as of this encounter Plan of Treatment Not on file documented as of this encounter Procedures Procedure Name Priority Date/Time Associated Diagnosis Comments CYTOPATHOLOGY Routine 06/11/2005 0:00 EST documented in this encounter Results * CYTOPATHOLOGY (06/11/2005 0:00 EST) Pathology Report: CYTOPATHOLOGY REPORT Reports generated via electronic interface contain original data; however they are lacking the format of the original report. Caution should be taken when reading/interpreti ng unformatted reports. Name: ? SHILOH ANDERSON ? Accession #: ? [id number] : ? 1945 (Age: 59) ??F ?Collect Date: ? 06/11/2005 Location: ? [facility] ? Receive Date: ? 06/13/2005 Provider: ?CRISTY SON TWIST PACKER Copy to: ? Specimen/Source: ?ThinPrep Pap Test, Cervix/Endocervix, processed on [employer] ThinPrep Imaging System, with manual evaluation Last Menstrual Period: ? SPECIMEN ADEQUACY ? Satisfactory for Evaluation - transformation zone component absent GENERAL CATEGORIZATION ? Negative for Intraepithelial Lesion or Malignancy ? Document reviewed and electronically signed by: ? ADILIA Olivares(ASCP) ? Report Date: ??06/17/2005 11:12 End of Report ROSANA SALINAS 06/11/2005 06/13/2005 Cristy Son NP PATHOLOGY ORDERABLES [facility] SALINAS [address] [place] [address] documented in this encounter Visit Diagnoses Not on filedocumented in this encounter
--- OUTSIDE RECORDS SUMMARY | 2024-03-10 01:27 | XMS_ITS | Encounter Summary ---
Author Organization [facility] Address [facility] [place] [address] Care Team Providers Care Front Desk Officer Name Role Phone Wilma Nance MD Primary Care Provider [phone] Encounter Details Date Type Department Care Team (Latest Contact Info) Description 06/11/2023 Travel Social History Tobacco Use Types Packs/Day [...] 1:00 PM EDT Office Visit Hematology/Oncology at [address] [phone] Sony Lyons MD [facility] [place] [address] Dottie Lira APRN [address] [place] [address] DR HEMATOLOGY AND ONCOLOGY [place], [place] [address] 03/19/2024 2:30 PM EDT Office Visit Dermatology at [address] [place] [phone] Sam Johns MD [address], [facility] A DERMATOLOGY [place], [place] [phone] documented as of this encounter Visit Diagnoses Not on filedocumented in this encounter Care Teams Front Desk Officer Relationship Specialty Start Date End Date Wilma Nance MD [address] [place] [address] PCP - General Family Medicine 09/18/17 documented as of this encounter
--- OUTSIDE RECORDS SUMMARY | 2024-03-10 01:27 | XMS_ITS | Encounter Summary ---
Author Organization [facility] Address [address] [place] [address] Care Team Providers Care Aircraft Mechanic Name Role Phone MikaelaCristy Delmi NOE Primary Care Provider Encounter Details Date Type Department Care Team (Late st Contact Info) Description 05/08/2022 Lab Requisition [facility] Pathology & Laboratory Medicine - [address] [address] Ghislaine Carrillo MD [address] [place] [address] [address] [place], [place] [id number] Malignant neoplasm of colon, unspecified (HCC-CMS) Social History Tobacco Use Types Packs/Day Years [...] Date/Time Associated Diagnosis Comments SURGICAL PATHOLOGY Today 05/08/2022 12 :30 EDT Malignant neoplasm of colon, unspecified (HCC) documented in this encounter Results * SURGICAL PATHOLOGY (05/08/2022 12:30 EDT) Addendum Comment Addition to synoptic template - No additional tumor sites are present (unifocal) 06/26/2022 15:02 EST [facility] Addendum electronically signed by Ema Deluna MD on 06/26/2022 at 1502 Note to Patient The following pathology results have been interpreted by your pathologist and may be available to you before your health provider has had the opportunity to review them. Please allow time for your provider to receive these results and explore management options, if applicable. 06/26/2022 15:02 [facility] Final Diagnosis A. 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 - Pathologic stage (AJCC 8th ed): pT3, pN0 - All surgical margins are negative for tumor. - Thirteen lymph nodes negative for carcinoma (0/13). 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 - Serosal adhesions. - See comment and synoptic report. 06/26/2022 15:02 [facility] Diagnosis Comment Mucin from a mucin pool containing tumor cells focally extends beyond the muscularis propria into the pericolonic soft tissue. This is suspicious for focal pericolonic soft tissue involvement by tumor, and thus the tumor is staged as pT3. Deeper levels were examined. Box Toe Buffer slides of this case were reviewed at the gastrointestinal/[facility] intradepartmental consultation conference. (KB, NF, RW) 06/26/2022 15:02 [facility] Attestation There was significant resident/fellow involvement in the diagnostic evaluation of this case. By the signature below, the attending physician certifies that they have personally conducted a gross and/or microscopic examination of the described specimens and rendered or confirmed the above diagnosis. 06/26/2022 15:02 [facility] at 1308 Synoptic COLON AND RECTUM: Resection, Including Transanal Disk Excision of Rectal Neoplasms COLON AND RECTUM: RESECTION - All Specimens 8th Edition - Protocol posted: 07/13/2021 SPECIMEN ?? Procedure: ?Transverse colectomy TUMOR ?? Tumor Site: ?Transverse colon ?? Histologic Type: ?Mucinous adenocarcinoma ?? Histologic Grade: ?G2, moderately differentiated ?? Tumor Size: ?Greatest dimension (Centimeters): 1.8 cm ?? Tumor Extent: ?Cannot be determined: Suspicous for invasion beyond muscularis propria into pericolonic soft tissue. ?? Macroscopic Tumor Perforation: ?Not identified ?? Lymphovascular Invasion: ?Not identified ?? Perineural Invasion: ?Not identified ?? Number of Tumor Buds: ?0 per 'hotspot' field ?? Tumor Davis Score: ?Low (0-4) ?? Type of Polyp in which Invasive Carcinoma Arose: ?None identified ?? Treatment Effect: ?No known presurgical therapy MARGINS ?? Margin Status for Invasive Carcinoma: ?All margins negative for invasive carcinoma ? Closest Margin(s) to Invasive Carcinoma: ?Proximal ? Closest Margin(s) to Invasive Carcinoma: ?Distal ? Closest Margin(s) to Invasive Carcinoma: ?Radial (circumferential) or mesenteric ?? Margin Status for Non-Invasive Tumor: ?All margins negative for high-grade dysplasia / intramucosal carcinoma and low-grade dysplasia REGIONAL LYMPH NODES ?? Regional Lymph Node Status: ? : ?All regional lymph nodes negative for tumor ? Number of Lymph Nodes Examined: ?13 ?? Tumor Deposits: ?Not identified PATHOLOGIC STAGE CLASSIFICATION (pTNM, AJCC 8th Edition) ?? Reporting of pT, pN, and (when applicable) pM categories is based on information available to the pathologist at the time the report is issued. As per the AJCC (Chapter 1, 8th Ed.) it is the managing physician? s responsibility to establish the final pathologic stage based upon all pertinent information, including but potentially not limited to this pathology report. ?? pT Category: ?pT3 ?? pN Category: ?pN0 ADDITIONAL FINDINGS ?? Additional Findings: ?None identified 06/26/2022 15:02 [facility] Clinical History Colon cancer 06/26/2022 15:02 [facility] Gross Description A. Received fresh labelled with proper patient identification (initials H,B) and transverse colon distal suture is a segment of bowel, received closed, that includes transverse colon (10.8 cm in length x 4.6 cm in luminal circumference) with a moderate amount of attached unremarkable omentum (14.5 x 12.5 x 2.2 cm). There is an firm lenz polypoid exophytic tumor (1.8 x 1.7 x 1.0 cm) near the center of the transverse colon specimen, along the mesenteric portion of the bowel; 5.6 cm from the proximal margin, 3.4 cm from the distal margin, and 9.2 cm from the radial omental margin. The visible serosa near the tumor is pink-lenz smooth and undisturbed. Sectioning through the tumor shows it extends through the colonic wall into the pericolonic fat 0.5 cm. The average tumor wall thickness is 0.5 cm. A possible black tattoo site (0.6 x 0.5 cm area) 4.0 cm from the distal margin is identified and inked blue. The uninvolved colonic mucosa is pink-lenz with the usual folds and the average wall thickness is 0.2 cm. No other polyps or lesions are identified. The uninvolved serosa is pink-lenz and smooth. Several mesenteric lymph nodes are identified (0.4 x 0.2 x 0.1 cm to 2.3 x 0.7 x 0.4 cm cm in greatest dimension). The tumor is submitted entirely. Box Toe Buffer sections are submitted as follows: INK TROY Blue-possible tattoo site Red-serosa over the mass Black-radial omental margin BLOCK TROY A1-A4- mesenteric margin, en face A5-A6- proximal staple margin, trisected, en face A7-A8- distal staple margin, bisected, en face A9- cross section of mucosa distal to tumor A10- cross section of distal tumor with invasion into pericolonic fat A11-A12- cross-sections of distal tumor, bisected A13-A15- cross-sections through center of tumor (A13 includes possible tattoo site) A16-A17- cross sections through proximal tumor A18- cross-section of mucosa proximal to tumor A19- one lymph node, bisected A20- one lymph node, intact A21- one lymph node, intact A22- one possible lymph node, bisected A23- one possible lymph node, serially sectioned A24- one possible lymph node, intact A25- one possible lymph node, bisected A26- one possible lymph node, intact A27- one possible lymph node, bisected A28- one possible lymph node, bisected A29- one possible lymph node, intact A30- one possible lymph node, intact A31- one possible lymph node, intact A32- one possible lymph node, intact A33- one possible lymph node, intact A34-A65 - pericolonic fibroadipose tissue, entirely submitted MADDY FRIEDMAN, DO 05/09/2022 15:41 MADDY FRIEDMAN, DO 05/10/2022 17:28 06/26/2022 15:02 EST [facility] Resident/Fell ow: Maddy Friedman, DO 06/26/2022 15:02 [facility] Performing Lab [facility] 06/26/2022 15:02 [facility] Scanned Images 06/26/2022 15:02 [facility] Tissue ENTIRE TRANSVERSE COLON / Unknown 05/08/2022 12:30 EDT 05/08/2022 17:14 EDT Ghislaine Carrillo MD PATHOLOGY ORDERA ERIK [facility] [address] [place] [address] documented in this encounter Visit Diagnoses Diagnosis Malignant neoplasm of colon, unspecified (HCC-CMS) documented in this encounter Care Teams Aircraft Mechanic Relationship Specialty Start Date End Date Cristy Al NP [facility] [address] [place] [address] PCP - General 02/21/12 documented as of this encounter
--- OUTSIDE RECORDS SUMMARY | 2024-03-10 01:27 | XMS_ITS | Encounter Summary ---
Author Organization [facility] [place] [address] Care Team Providers Care Cost Accounting Manager Name Role Phone Wilma Nance MD Primary Care Provider [phone] Encounter Details Date Type Department Care Team (Late Contact Info) Description 10/01/2023 Ancillary Procedure [place] [id number] Wilma Nance MD [address] [id number] Social History Tobacco Use Types Packs/Day Years [...] 1:00 PM EDT Office Visit Hematology/Oncology at [address] [phone] Sony Lyons MD [facility] [place] [address] Dottie Lira APRN [address] [place] [address] DR HEMATOLOGY AND [place], [place] [id number] 03/19/2024 2:30 PM EDT Office Visit Dermatology at [place] [address] [place] [address] Sam Johns MD [address] [place] [address] documented as of this encounter Procedures Procedure Name Priority Date/Time Associated Diagnosis Comments FILM LIBRARY STORAGE ONLY MR HEAD AND SPINE Routine 10/01/2023 12:00 AM EST documented in this encounter Results * Film Library- Storage Only MR Head and Spine (10/01/2023 12:00 AM EST) Narrative [facility] [place] 02/10/2024 12:21 PM EDT This exam is auto-finalizing. It's purpose is for storage only. Wilma Nance MD IMG FILM LIBRARY ORD ERABLES [place], [place] documented in this encounter Visit Diagnoses Not on filedocumented in this encounter Care Teams Cost Accounting Manager Relationship Specialty Start Date End Date Wilma Nance MD [address] [place] [address] PCP - General Family Medicine 09/18/17 documented as of this encounter
--- OUTSIDE RECORDS SUMMARY | 2024-03-10 01:28 | XMS_ITS | Encounter Summary ---
Author Organization [facility] Address [facility] [place] [address] Care Team Providers Care Head Irrigator Name Role Phone Wilma Nance MD Primary Care Provider [phone] Reason for Visit * Consultation (Routine) - Closed Specialty Diagnoses / Procedures Referred By Contac t Referred To Contact Sleep Center Diagnoses Obstructive sleep apnea (adult) (pediatric) Sleep apnea, unspecified Wilma Nance MD [address] [place] [address] [facility] Sleep Medicine [address] [place] [address] Referral ID Status Reason Start Date Expiration Date V isits Requested Visits Authorized [id number] Closed Consult, Test & Treat Connection Center PCP Updated and/or Approved 12/22/2020 12/22/2021 12 12 Encounter Details Date Type Department Care Team (Late st Contact Info) Description 03/26/2021 1:00 PM EDT TH Visit (TeleHealth) Sleep Center at [facility] [address] [place] [address] Serenity Nair APRN [facility] [place] [address] SUGEY treated with BiPAP (Primary Dx); Daytime sleepiness; Nocturnal hypoxemia Social History Tobacco Use Types Packs/Day Years Used Date Smoking Tobacco: Every Day Cigarettes 0.8 15 Smokeless Tobacco: Never Comments:Restarted trying to [...] Sign Reading Time Taken Comments Blood Pressure - - Pulse - - Temperature - - Respiratory Rate - - Oxygen Saturation - - Inhaled Oxygen Concentration - - Weight 111.1 kg (245 lb) 03/26/2021 10:06 AM EDT Height 160 cm (5' 3) 03/26/2021 10:06 AM EDT Body Mass Index 43.4 03/26/2021 10:06 AM EDT documented in this encounter Patient Instructions * Patient Instructions* Serenity Nair, SAM - 03/26/2021 1:00 PM EDT Recommendations: --Please register your device on the [email or web address] web site, or by phoning them. She has not done so yet. --Do not buy or use a ozone generating PAP cleaning device with the CARGOBR 1 machine. --Contact us if patient develops airway irritation symptoms, headaches or other symptoms that they feel may be related to BPAP use. --She will contact [facility] to fax us their sleep studies and most recent data download. Fax to: [phone] --Once I review, I will contact her for next steps; --With change of DME, she may need repeat sleep studies to requalify for replacement machine (if not replaced through recall registration) and nocturnal oxygen Ongoing CPAP/BPAP tips: --Visit www.[email or web address] for information on sleep apnea, sleep studies, treatment options --Continue BPAP 1410cw for now --Call DME company (when assigned new one) for questions on machine, supply replacements, billing, and for confirming compliance met --Adjust mask straps nightly while laying down with machine on, just to snug, for best fit; do not overtighten as it can cause discomfort and greater mask leak --Suggest PadACheek cloth mask liner for comfort or mask leak: for information, call [phone] or go to [email or web address] --If dry mouth: 1) adjust humidity up and/or heated tube temperature down, 2) consider over the counter Biotene mouth rinse, spray, or gel, 3) consider adding room humidifier --If nasal congestion: 1) Try adjusting PAP humidity level, 2) Consider OTC saline nasal spray: 2 sprays per nostril twice daily, before affixing mask in evening and after removing mask in morning, and/or 3) consider nasal saline wash at night before affixing mask, and/or 4) consider over the counter nasal steroid spray --Handouts on helpful PAP tips, proper mask fit, parts cleaning/maintenance, supply replacement intervals, restless legs and these recommendations sent to patient through US mail --Driving safety reviewed --Follow-up: TBD documented in this encounter Progress Notes * Serenity Nair APRN - 03/26/2021 1:00 PM EDT Sleep Medicine Telehealth New Patient Note CC/HPI: Shiloh Anderson is a 75 y.o. female seen at the request of Wilma Nance MD for advice regarding SUGEY on BPAP therapy that she uses nightly. She feels like something is off regarding her PAP therapy but can't describe other than mask difficulty. She was originally diagnosed with SUGEY here at , last follow up in 2011 but has been seen for manyyears now at [facility] ([facility]) in [place], [place]. Her last sleep study there was 3-5 years ago. She has followed up with them since 2011 for sleep apnea and restless legs, via Dr. Spears. Last seen October 2020 where data download was reviewed. No download available today. She is on O2 at 2lpm bled into BPAP. DME is [facility] and she obtained BPAP machine and oxygen from them. She is not happy with them and would like a change of DME and she wants to transfer Sleep Medicine care to us. 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 Last seen a month ago, can't recall women's name. She went for follow up, had CT scan--results reported WNLs, provider noted lungs sounded very good. Reports her machine has been recalled, received a letter from [employer] about it. HPI continues below. Patient in [place], [place] Visit via video Patient provided verbal consent prior to initiation of this telehealth encounter and expressed understanding that the telehealth visit may be billed similar to a clinic visit Sleep Study History: 05/2005 split PSG: The patient's baseline oxygen saturation while awake was in the mid 90%'s range.With sleep onset the baseline oxygen saturation decreased and remained consistently 86 to 88%. In addition, the patient did demonstrate evidence of obstructive respiratory events with associated cyclical desaturations. Overall, however, the degree of obstructive sleep apnea was in the moderate to severe range. The minimum oxygen saturation observed was 82%. During the treatment portion of the study CPAP was initiated and titrated to a maximum pressure of 10 cmH2O. The patient appeared to have generally good control of the obstructive respiratory events with CPAP at 10 cmH2O, although there were still some mild subtle hypopneas at this pressure. At CPAP of 10 the patient continued to have borderline oxygen saturations. She was able to remain at 90% or slightly above during non-REM, although during Stage REM the patient's oxygen saturation remained in the 86 to 88% range. Of note, the patient did have saturations of 88% and below for greater than 5 consecutive minutes on CPAP therapy. Recommendations: 1. Would change CPAP to 11 cmH2O at this time. 2. Given the persistent hypoventilation despite effective CPAP pressure, would add supplemental oxygen at two liters per minute for use with the CPAP therapy at this time. 07/2009 CPAP titration, Dr. Olsen: Saturations were maintained in the 90% range with nasal CPAP and room air alone. Full face mask fit has been an issue at home and was a problem on this study. All pressures were demonstrated efficacious in non REM sleep supine at least intermittently. A pressure of 15 cm was efficacious in non REM and REM sleep supine despite the high leak values. One could consider bumping her pressure to 15 cm, although I am concerned about the effect of possibly increasing leak with increasing pressure. She was issued a new CPAP machine at an auto-range of 12-16cm H20, after pt was unable to provide adetailed download from her older machine, and she had admitted to some excess gas and abdominal bloating in the mornings. Addendum 04/13/21 after receiving sleep study notes, selected history from [facility] (pgs 53+/65): 10/27/2015 CPAP/BPAP titration, was not started on O2 with BPAP at that time for unknown reasons; recommendations: BPAP 18/14cw or autoBPAP Imax 19cw, Patrick 10, PS 4, 2lpm O2. Simplus FFM med or Amira View small. 11/25/16 overnight oximetry on BPAP: SpO2 fredis 69%, 379mins with O2sats <=88% 08/14/17 overnight oximetry on CPAP: Group 1 qualifier (cannot read other info) 08/09/18 CPAP/BPAP titration, CPAP tried and failed, best BPAP pressures not identified, recommendation 17/13cw with 2lpm O2 or autoBPAP Imax 20, Patrick 9, PS 4 with 2lpm O2 12/15/19 fu visit: autoBPAP 23/10cw PS 4 with O2 at 3lpm, Amiranancy Lujan,citlalli scales recommended for leak PLMS 77.8/hr PLMai 5.6/hr Treatment: BPAP Device: Respironics REMstar System One Pressure: Addendum: KMP says autoBPAP Imax 23, Patrick 10cw, PS 4, Biflex 1 Pressure Intolerance: feels like it's hard to exhale Supplemental oxygen? Yes, 2lpm O2 bled into BPAP Interface/Mask/Chin Strap: Amira Le, small Difficulty tolerating mask interface: no Difficulty Breathing Through Nose/Mouth Breathing: no HCC: [facility], wanted to [facility] Sleep Pattern: Bed/Recliner/Wedge: bed, adjustable, no partner # Pillows under head: 1 Bedtime: 9a Position: no Latency (YAQUELIN): mostly within half hour Awakenings (WASO): wakes a lot Duration: > 30 mins Wake/rise time: 7-9a Respiratory: on BPAP Snoring: unknown Mouth Breathing: yes Dry Mouth: yes Nocturnal Gasping: unknown Daytime Symptoms: Restorative Sleep Upon Awakening?: Still tired Naps: yes, may get very tired late afternoon, will lie down for late afternoon, may nap Involuntary Dozing: occ Driving: drives, no drowsiness Close calls related to sleepiness: maybe Accidents related to sleepiness: no Other Associated Sleep Symptoms: Parasomnias: Sleep Walking/Eating: no Nightmares: no Bruxism: no Motor: RLS: no sxs now. previously diagnosed with and treated; started on Requip, reports started at 0.5mg, and increased to 2mg, but it didn't help. Now off medication. PLMS: wakes with linens in disarray, reports restless sleep Family History: Family history of sleep disorders: two of kids have it ROS: CON: Weight change: since last sleep study, thinks she's lost about 30lbs ENT: Nasal Obstruction: mild deviated septum PUL: BALDERRAMA: yes CV: chest pain: no Palpitations: has a murmur LE edema: no GI: GERD: no : Nocturia: better on Oxybutynin 2 months MSK: Pain: yes, can interfere with sleep Has cane but doesn't usually need for distance, uses if on uneven ground NEURO: sleep related headaches: no PSY: Depressed Mood/Anxiety: yes, controlled ALL: Environmental allergies: seasonal Social History: Living situation: lives alone Employment: retired Alcohol: a few beers in afternoon Smoking: on/off, current cigarette smoker <= 1ppd Caffeine: coffee in morning Other drugs: no Past Surgical History: Past Surgical History: Procedure Laterality Date ??? COLONOSCOPY ??? JOINT REPLACEMENT Left TKR ??? JOINT REPLACEMENT Right TKR and revison ??? JOINT REPLACEMENT Left 2009 THR with revision 10 days later s/p femur fracture ??? LUMBAR FUSION 2018 Fusion ??? PRO REMOVAL OF BREAST LESION 09/28/2012 EXCISION CYST, FIBROADENOMA, ABBERANT BREAST TISSUE,DUCT LESION,NIPPLE OR AREOLAR LESION (LUMPECTOMY) performed by Yuval Rodas MD at [facility] ??? PRO REVISE MEDIAN N/CARPAL TUNNEL SURG Left 05/29/2020 MEDIAN NERVE DECOMPRESSION (CARPAL TUNNEL RELEASE) (WRVU 4.97) performed by Marion Abdalla MD at [facility] ??? PRO REVISE MEDIAN N/CARPAL TUNNEL SURG Right 06/20/2020 MEDIAN NERVE DECOMPRESSION (CARPAL TUNNEL RELEASE) (WRVU 4.97) performed by Marion Abdalla MD at [facility] ??? REVISION TOTAL KNEE ARTHROPLASTY Bilateral 2012 redone last year ??? SHOULDER SURGERY Left semisphere replacement (not a reverse replacement) ??? SHOULDER SURGERY Right open repair then second time for debridement ??? TOTAL HIP ARTHROPLASTY Left 2010 redone 1 month later ??? UPPER GASTROINTESTINAL ENDOSCOPY Past Medical History: Past Medical History: Diagnosis Date ??? Arthritis ??? Cancer 2017 Basal cell ca, spot on forehead ??? COPD (chronic obstructive pulmonary disease) ??? CPAP (continuous positive airway pressure) dependence ??? Fibromyalgia ??? Gastroesophageal reflux ??? Heart valve disease 2018 intermittently, saw cardsiology. Not concerned per pt ??? High blood pressure ??? Hypertension ??? Hypothyroid ??? Incontinence urge ??? Irregular heart beat ??? 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 Mental health problem Depression ??? Murmur, heart ??? Obstructive sleep apnea ??? SUGEY on CPAP ??? Oxygen dependent with CPAP ??? Sepsis due to gram-negative UTI 2015 ??? Thyroid disease hypothyroid Problem List: Patient Active Problem List Diagnosis Code ??? Breast mass N63.0 ??? History of basal cell carcinoma Z85.828 ??? Adult hypothyroidism E03.9 ??? Depression F32.9 ??? Fibromyalgia M79.7 ??? Hypertension I10 ??? Low back pain M54.5 ??? Irregular heart rate I49.9 ??? Bilateral carpal tunnel syndrome G56.03 ??? Cerumen impaction H61.20 ??? Dysphonia R49.0 ??? Dyspnea R06.00 ??? Gastroesophageal reflux disease K21.9 ??? 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 Right distal ulnar fracture S52.601A ??? S/P lumbar fusion Z98.1 ??? Sensory hearing loss, bilateral H90.3 ??? Severe obesity E66.01 ??? Sleep apnea G47.30 ??? Tobacco use disorder F17.200 ??? Urge incontinence of urine N39.41 Medications: Outpatient Medications Marked as Taking for the 03/26/21 encounter (TH Visit (TeleHealth)) with Serenity Nair APRN Medication Sig Dispense Refill ??? losartan (COZAAR) 100 mg Tablet TAKE 1 TABLET BY MOUTH EVERY DAY ??? cetirizine (ZyrTEC) 10 mg Tablet TAKE 1 TABLET BY MOUTH EVERY DAY ??? oxybutynin XL (Ditropan-XL) 5 mg Tablet Extended Rel 24 hr TAKE 1 TABLET BY MOUTH DAILY ??? [DISCONTINUED] nystatin (MYCOSTATIN) Powder APPLY TO AFFECTED AREA TWO TIMES A DAY FOR 10 DAYS ??? OXYGEN-AIR DELIVERY SYSTEMS MISC nightly. With c-pap ??? celecoxib (CeleBREX) 200 mg Capsule TK 1 C PO BID ??? cholecalciferol, Vitamin D3, (Vitamin D3) 1,000 unit Tablet Take 1,000 Units by mouth daily. ??? folic acid (Folvite) 400 mcg Tablet Take 400 mcg by mouth daily. ??? multivitamin (THERAGRAN) Tablet Take 1 tablet by mouth daily. ??? buPROPion (WELLBUTRIN SR OR ZYBAN) 150 mg tablet sustained-release 12 hr Take 150 mg by mouth 2times daily. 0 ??? cyclobenzaprine (FLEXERIL) 10 mg Tablet TAKE 1 TABLET BY MOUTH 3 TIMES A DAY NEEDED DO NOT USE BEFORE DRIVING 0 ??? FLUoxetine (PROZAC) 20 mg Capsule Take 20 mg by mouth daily. 0 ??? [DISCONTINUED] losartan (COZAAR) 50 mg Tablet 100 mg. 0 ??? ESTRACE 0.01 % (0.1 mg/gram) Cream apply 2 grams vaginally two times a week 1 ??? levothyroxine (SYNTHROID) 175 mcg Tablet Take 175 mcg by mouth daily. 0 ??? oxyCODONE-acetaminophen (PERCOCET) 10-325 mg Tablet Take 1 tablet by mouth every 4 hours as needed. Notable Medications: Wellbutrin, Flexeril, Prozac, Percocet--on for 20 years r/t fibromyalgia pain PE: Ht 160 cm (5' 3) Wt 111.1 kg (245 lb) BMI 43.40 kg/m?? General: 75 y.o.female, NAD Eyes: conjunctiva clear, wears glasses ENT: Gums and teeth: good condition Tongue: unremarkable size NECK: Submental fat present: Y, supple LUNGS: respirations even and unlabored in appearance PSYCH: Alert and appropriate: yes Oriented to person, place and time: AOx3 Affect: normal Judgement and insight: intact Assessment: Shiloh Anderson is a 75 y.o. female with a history of SUGEY on autoBPAP with 2lpm nocturnal O2. Originally seen here at where CPAP with 2lpm nocturnal O2 recommended, then followed by [facility] in [place], [place], where they placed her on BPAP after a few more sleep studies. She now wants totransfer care back to us. She would like change of DME for replacement machine (her's is recalled and may be > 5 years old anyway). Discussed that she may need repeat sleep study(ies) to requalifyfor machine and oxygen with a different DME. Describes symptoms of non-restorative sleep, daytime sleepiness, restless sleep on BPAP. Notes weight loss of 30lbs. Physical exam is signficant for BMI 43. Significant medical history includes COPD, idiopathic sleep related alveolar hypoventilation, heartvalue disease ad murmur, HTN, hypothyroidism, fibromyalgia, GERD. On Percocet for fibromyalgia pain, taken daily, which places her at higher risk for central sleep apnea. Reasons to treat obstructive sleep apnea reviewed. Requested she send copies of [facility] sleep studies and last data download from last visit October 2020. I will review, determine process after that TBD. Plan/recommendations below. Confirmed any study results can be sent by letter mailed. Total time spent via telehealth with patient including charting, history and referral review, sleepstudy order, counseling and recommendations: 75 minutes Recommendations: --Please register your device on the Curious.[email or web address] web site, or by phoning them. She has not done so yet. --Do not buy or use a ozone generating PAP cleaning device with the DreamStation 1 machine. --Contact us if patient develops airway irritation symptoms, headaches or other symptoms that they feel may be related to BPAP use. --She will contact [facility] to fax us their sleep studies and most recent data download. Fax to: [phone] --Once I review, I will contact her for next steps; --With change of DME, she may need repeat sleep studies to requalify for replacement machine (if not replaced through recall registration) and nocturnal oxygen Ongoing CPAP/BPAP tips: --Visit [email or web address] for information on sleep apnea, sleep studies, treatment options --Continue autoBPAP --Call DME company (when assigned new one) for questions on machine, supply replacements, billing, and for confirming compliance met --Adjust mask straps nightly while laying down with machine on, just to snug, for best fit; do not overtighten as it can cause discomfort and greater mask leak --Suggest PadACheek cloth mask liner for comfort or mask leak: for information, call [phone] or go to [email or web address] --If dry mouth: 1) adjust humidity up and/or heated tube temperature down, 2) consider over the counter Biotene mouth rinse, spray, or gel, 3) consider adding room humidifier --If nasal congestion: 1) Try adjusting PAP humidity level, 2) Consider OTC saline nasal spray: 2 sprays per nostril twice daily, before affixing mask in evening and after removing mask in morning, and/or 3) consider nasal saline wash at night before affixing mask, and/or 4) consider over the counter nasal steroid spray --Handouts on helpful PAP tips, proper mask fit, parts cleaning/maintenance, supply replacement intervals, recall with phone number to register, and recommendations sent to patient through US mail --Driving safety reviewed --Follow-up: TBD Addendum 04/05/21: Called [facility] since I have received no sleep study copies yet from [facility] to see what they had--last studies are from us, also requested access to her profile in [place], shows a AIMStation autoBPAP machine, setup 01/11/2010 (initial date, not most recent). Usage is nightly. Data Download: autoBPAP Date Range: 03/06-04/04/21 Pressure: 23/10cw Min/max PS 4/4 Biflex setting 1 90% 16.1 Avg 12.1 Residual AHI: 2.4 Avg Vibratory Snore Index: 17.6 Avg % Night in Large Leak: 0.1% Avg breath rate 22 bpm Humidity and heated tubing are off Average Usage (Days Used/Hours): 11 hrs 32 mins # Days of usage: 100% % Days used > 4 hours: 100% The patient indicates understanding of these issues and agrees with the plan. Serenity Nair APRN Cc: Wilma Nance MD documented in this encounter Plan of Treatment Upcoming Encounters Date Type Department Care Team (Late st Contact Info) Description 03/12/2024 1:00 PM EDT Office Visit Hematology/Oncology at [address] [phone] Sony Lyons MD [facility] [place] [address] Dottie Lira APRN [address] [place] [address] DR HEMATOLOGY AND ONCOLOGY [place], [place] [id number] 03/19/2024 2:30 PM EDT Office Visit Dermatology at [place] [address] [facility] [place] [id number] Sam Johns MD [address], [place] [address] documented as of this encounter Visit Diagnoses Diagnosis SUGEY treated with BiPAP- Primary Daytime sleepiness Nocturnal hypoxemia Hypoxemia documented in this encounter Care Teams Head Irrigator Relationship Specialty Start Date End Date Wilma Nance MD [address] [place] [address] PCP - General Family Medicine 09/18/17 documented as of this encounter
--- OUTSIDE RECORDS SUMMARY | 2024-03-10 01:28 | XMS_ITS | Encounter Summary ---
Author Organization [facility] [place] [address] Care Team Providers Care First Aid Teacher Name Role Phone Wilma Nance MD Primary Care Provider [phone] Reason for Visit * Auth/Cert Specialty Diagnoses / Procedures Referred By Contshaneka t Referred To Contact Diagnoses Right Carpal Tunnel Syndrome Procedures PRO REVISE MEDIAN N/CARPAL TUNNEL SURG MEDIAN NERVE DECOMPRESSION (CARPAL TUNNEL RELEASE) (WRVU 4.97) Referral ID Status Reason Start Date Expiration Date Visits Re quested Visits Authorized [id number] 1 1 Encounter Details Date Type Department Care Team (Late st Contact Info) Description 06/20/2020 7:25 AM EST Anesthesia Event [place] [address] [place] [address] Anesthesia Record Procedure Summary Procedure Name Responsible Anesthesiologist Anesthesia Start Time Anesthesia Stop Time MEDIAN NERVE DECOMPRESSION (CARPAL TUNNEL RELEASE) (WRVU 4.97) (Right: Hand) Jayla Sylvester CRNA 06/20/20 0725 06/20/20 0759 Events Date Time Event Comment 06/20/2020 0723 0725 AN Verify 0725 Start 0730 An Start Data 0732 Anesthesia Ready 0754 an stop data 0759 Recovery or ICU Handoff Emilia ent care was transferred to the destination unit staff after review of the patient's medical history, current anesthetic/surgical status and plan, according to the Provider Handoff Checklist. 0759 Stop Meds Name Total ceFAZolin (Ancef) 2 g in dextrose 5% 100 mL infusion 2 g Propofol 200 mg Ketamine 10 mg/mL 10 mg Ondansetron 4 mg Dexamethasone 10 mg Lactated Ringers 300 mL * Agents Name O2 Air N2O O2 Auxiliary Flowmeter 1 * Blood No blood administrations on file. Lines, Drains, and Airways Type Details Placement Removal Incision 09/28/12; breast; 03/25/22 (LDA cleanup utility RA#[id number]); 1715 (LDA cleanup utility RA#[id number]) 09/28/12 0000 by Gaby Conley RN 03/25/22 1715 by Amie Arboleda Incision 05/29/20; 0737; palm ; vertical; 03/25/22 (LDA cleanup utility RA#[id number]); 1715 (LDA cleanup utility RA#[id number]) 05/29/20 0737 by Risa Sheth RN 03/25/22 1715 by Amie Arboleda (RETIRED) Peripheral IV Line - Single Lumen 06/20/20; 0654; median cubital vein (antecubital fossa), left; [id number] catheter system; 22 gauge; distraction; 1; median cubital vein (antecubital fossa), left; no longer indicated, site care per policy/procedure, removed per policy/procedure; 06/20/20; 0847 06/20/20 0654 by Shanti Morrissey RN 06/20/20 0847 by Cali Morrissey RN Incision 06/20/20; 0735; palm ; 03/25/22 (LDA cleanup utility RA#[id number]); 1715 (LDA cleanup utility RA#[id number]) 06/20/20 0735 by Jose G Self RN 03/25/22 1715 by Amie Arboleda documented in this encounter Social History Tobacco Use Types Packs/Day Years [...] on file documented as of this encounter OR Notes * Anesthesia Postprocedure Evaluation - Jayla Sylvester CRNA - 06/20/2020 2:33 PM EST Department of Anesthesiology Post-procedure Note Patient: Shiloh Anderson Procedure Summary Date: 06/20/20 Room / Location: [facility] OR MAIN OR Anesthesia Start: 724 Anesthesia Stop: 758 Procedure: MEDIAN NERVE DECOMPRESSION (CARPAL TUNNEL RELEASE) (WRVU 4.97) (Right Hand) Diagnosis: (Right Carpal Tunnel Syndrome) Surgeon: Marion Abdalla MD Responsible Provider: Jayla Sylvester CRNA Anesthesia Type: general ASA Status: 3 All Anesthesia Providers: ZACH Independent: Jyala Sylvester CRNA Vitals Value Taken Time BP 104/58 06/20/20 0818 Temp Pulse Resp 18 06/20/20 0818 SpO2 94 % 06/20/20 0818 Pain Level 0 06/20/20 0818 Patient Location: PACU/[facility] Level of Consciousness: Awake and Alert Pain Management: Satisfactory Analgesia PONV: None Cardiovascular Status: At Baseline Respiratory Status: At Baseline Postoperative Fluid Status: Intravascular EUvolemia Possible Anesthetic Complications: NONE apparent at time of evaluation Final Primary Anesthesia Type: MAC (The anesthetic type performed was the same as planned.) Comments: * Anesthesia Preprocedure Evaluation - Jayla Sylvester CRNA - 06/20/2020 7:07 AM EST Pre-Anesthesia Evaluation for: Shiloh Anderson a 74 y.o. female. Procedure(s): MEDIAN NERVE DECOMPRESSION (CARPAL TUNNEL RELEASE) (WRVU 4.97) Patient Active Problem List Diagnosis ??? History of basal cell carcinoma ??? Breast mass Past Medical History: Diagnosis Date ??? Arthritis ??? Cancer 2017 Basal cell ca, spot on forehead ??? COPD (chronic obstructive pulmonary disease) ??? CPAP (continuous positive airway pressure) dependence ??? Fibromyalgia ??? Gastroesophageal reflux ??? Heart valve disease 2018 intermittently, saw cardsiology. Not concerned per pt ??? High blood pressure ??? Hypertension ??? Hypothyroid ??? Incontinence urge ??? Irregular heart beat ??? correction current use of opiate analgesic ??? Mental health problem Depression ??? Murmur, heart ??? Obstructive sleep apnea ??? SUGEY on CPAP ??? Oxygen dependent with CPAP ??? Sepsis due to gram-negative UTI 2016 ??? Thyroid disease hypothyroid Past Surgical History: Procedure Laterality Date ??? COLONOSCOPY ??? JOINT REPLACEMENT Left TKR ??? JOINT REPLACEMENT Right TKR and revison ??? JOINT REPLACEMENT Left 2010 THR with revision 10 days later s/p femur fracture ??? LUMBAR FUSION 2018 Fusion ??? PRO REMOVAL OF BREAST LESION 09/28/2012 EXCISION CYST, FIBROADENOMA, ABBERANT BREAST TISSUE,DUCT LESION,NIPPLE OR AREOLAR LESION (LUMPECTOMY) performed by Yuval Rodas MD at [facility] ??? PRO REVISE MEDIAN N/CARPAL TUNNEL SURG Left 05/29/2020 MEDIAN NERVE DECOMPRESSION (CARPAL TUNNEL RELEASE) (WRVU 4.97) performed by Marion Abdalla MD at [facility] MAIN OR ??? REVISION TOTAL KNEE ARTHROPLASTY Bilateral 2012 redone last year ??? SHOULDER SURGERY Left semisphere replacement (not a reverse replacement) ??? SHOULDER SURGERY Right open repair then second time for debridement ??? TOTAL HIP ARTHROPLASTY Left 2010 redone 1 month later ??? UPPER GASTROINTESTINAL ENDOSCOPY Social History Tobacco Use ??? Smoking status: Current Every Day Smoker Packs/day: 0.75 Years: 15.00 Pack years: 11.25 Types: Cigarettes ??? Smokeless tobacco: Never Used ??? Tobacco comment: Restarted trying to stop now Substance Use Topics ??? Alcohol use: Yes Alcohol/week: 3.0 standard drinks Types: 3 Cans of beer per week Comment: Daily per [facility] note Social History Substance and Sexual Activity Drug Use No No Known Allergies Medications: MAR and/or home medications have been reviewed. Physical Exam: Patient Vitals for the past 24 hrs: Temp Pulse Resp BP SpO2 O2 Device 06/20/20 0622 36.2 ??C (97.2 ??F) 74 16 159/80 95 % RA Body mass index is 42.51 kg/m??. Height: 160 cm (5' 3) Weight: 108.9 kg (240 lb) Airway Assessment: Mallampati: II TM distance: <3 FB Neck ROM: full Cardiovascular Assessment: Rhythm: regular Rate: normal system normal Pulmonary Assessment: breath sounds clear to auscultation pulmonary exam normal Dental Assessment: - normal exam Misc Assessment: Patient is wearing No contact(s). IV access: Peripheral line Anesthesia Plan: ASA 3 MAC, with a(n) intravenous induction Shiloh feels she is in her USOH. She denies CP/SOB/BALDERRAMA, recent illness/URI. She can achieve > 4METs with ease. She denies hepatorenal or thyroid disease, seizures, CVA/TIA. Prediabetes lost 30 lbs over last few months, A1C down to 5.4 from 5.9. Still smoking. COPD: controlled on albuterol, used this morning, States she had a CT of her lungs this year as well as PFTs last year and was told they were normal. HTN: Controlled on losartan Thyroid: stable on levothyroxine SUGEY: on CPAP w\oxygen GERD: denies NPO: appropriately NPO > 8 hours solids, > 2 hours liquids We have discussed the plan + risks/benefits of anesthesia. Shiloh verbalizes understanding, wishesto proceed, and has signed consent. Region - Other Informed Consent: Anesthetic plan and risks discussed with patient. PAT Clinic Note documented in this encounter Plan of Treatment Upcoming Encounters Date Type Department Care Team (Late st Contact Info) Description 03/12/2024 1:00 PM EDT Office Visit Hematology/Oncology at [address] [phone] Sony Lyons MD [facility] [place] [address] Dottie Lira APRN [address] [place] [address] DR HEMATOLOGY AND ONCOLOGY [place], [place] [id number] 03/19/2024 2:30 PM EDT Office Visit Dermatology at [address] Toño [place] [phone] Sam Johns MD [address], [place] [address] documented as of this encounter Visit Diagnoses Not on filedocumented in this encounter Administered Medications Inactive Administered Medications - up to 3 most recent administrations Medication Order MAR Action Action Date Dose Rate Site ceFAZolin (Ancef) 2 g in dextrose 5% 100 mL infusion 2 g, Intravenous, ONCE, 1 dose, On Fri06/20/20 at 0645, Administer over 30 Minutes, To be administered upon arrival to the OR within one hour prior to incision., Day of Surgery (Day of Procedure), Indication for (Active or Suspected): Prophylaxis Given 06/20/2020 7:30 AM EST 2 g dexamethasone (Decadron) injection PRN, Starting on Fri06/20/20 at 0746, Until Fri06/20/20 at 0812, Anesthesia Intra-op, Routine Given 06/20/2020 7:46 AM EST 10 mg ketamine (KETALAR) 10 mg/mL bolus injection (Anesthesia) PRN, Starting on Fri06/20/20 at 0731, Until Fri06/20/20 at 0812, Anesthesia Intra-op Given 06/20/2020 7:31 AM EST 10 mg lactated ringers infusion CONTINUOUS PRN, Starting on Fri06/20/20 at 0725, Until Fri06/20/20 at 0812, Anesthesia Intra-op New Bag 06/20/2020 7:25 AM EST ondansetron (pf) (Zofran) (2 mg/mL) injection PRN, Starting on Fri06/20/20 at 0746, Until Fri06/20/20 at 0812, Anesthesia Intra-op, Routine Given 06/20/2020 7:46 AM EST 4 mg propofoL (Diprivan) 10 mg/mL bolus injection (Anesthesia) PRN, Starting on Fri06/20/20 at 0731, Until Fri06/20/20 at 0812, Anesthesia Intra-op Given 06/20/2020 7:40 AM EST 30 mg Given 06/20/2020 7:38 AM EST 30 mg Given 06/20/2020 7:36 AM EST 30 mg documented in this encounter Care Teams First Aid Teacher Relationship Specialty Start Date End Date Wilma Nance MD [address] [place] [address] PCP - General Family Medicine 09/18/17 documented as of this encounter
--- OUTSIDE RECORDS SUMMARY | 2024-03-10 01:28 | XMS_ITS | Encounter Summary ---
Author Organization [facility] Address [facility] [place] [address] Care Team Providers Care Cafe Worker Name Role Phone Wilma Nance MD Primary Care Provider [phone] Encounter Details Date Type Department Care Team (Late Contact Info) Description 04/12/2021 Telephone Sleep Center at [facility] [address] [place] [phone] Marcelle Brian Social History Tobacco Use Types Packs/Day Years [...] 1:00 PM EDT Office Visit Hematology/Oncology at [address] [phone] Sony Lyons MD [facility] [place] [address] Dottie Lira APRN [address] [place] [address] DR HEMATOLOGY AND ONCOLOGY [place], [place] [id number] 03/19/2024 2:30 PM EDT Office Visit Dermatology at [place] [address] [place] [address] Sam Johns MD [address], [place] [address] documented as of this encounter Visit Diagnoses Not on filedocumented in this encounter Care Teams Cafe Worker Relationship Specialty Start Date End Date Wilma Nance MD [address] [place] [address] PCP - General Family Medicine 09/18/17 documented as of this encounter
--- OUTSIDE RECORDS SUMMARY | 2024-03-10 01:28 | XMS_ITS | Encounter Summary ---
[place] [address] Care Team Providers Care Business Center Representative Name Role Phone Wilma Nance MD Primary Care Provider [phone] Reason for Visit * Reason Comments Annual Exam Encounter Details Date Type Department Care Team (Late st Contact Info) Description 09/18/2017 10:30 AM EST Office Visit Dermatology at [address] [phone] Sam Johns MD [address] [facility] [place] [address] History of basal cell carcinoma; AK (actinic keratosis) Social History Tobacco Use Types Packs/Day Years Used Date Smoking Tobacco: Every Day Cigarettes 1.5 15 Smokeless Tobacco: Never Comments:Restarted trying to stop now Alcohol Use Standard Drinks/Week Comments Yes 3 (1 standard drink = 0.6 oz pur e alcohol) Sex and Gender Information Value Date Recorded Sex Assigned at Not on file Gender Identity Not on file Sexual Orientation Not on file documented as of this encounter Progress Notes * Sam Johns MD - 09/18/2017 10:30 AM EST Problem: 1. Skin checkup, 1 year 2. 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 She has had some accidents and falls. She has gained a lot of weight but she is adamant that she wants to lose it and also watch the salt in her diet to reduce the swelling in her legs. She still tries to ride her horse and really enjoys those outings when she goes with her dog and horse out and about. She knows that she must be serious about health care maintenance issues, weight loss in order to continue to enjoy these activities. Physical examination reveals a pleasant fair skinned blue-eyed woman now 72 with moderate solar L date of the actinic damage of the forehead but no evidence of recurrence therefore BCCA. She has a benign examination otherwise of the face the chest the back hands and forearms thighs and the calves. Assessment plan Benign skin examination 1. Patient reassured about the benign skin examination benign nevi, seborrheic keratoses, solar lentigo's 2. With the exceptions as noted below no treatment necessary 3. 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 No evidence recurrence 2. Patient reassured Actinic keratosis forehead 1. After obtaining informed consent LN 2 x 2 was applied each of 4 sites. 2. Patient reassured 3. Return to clinic in 1 year for repeat check 4. Continue sun avoidance precautions. Cc: Wilma Wilson MD documented in this encounter Plan of Treatment Upcoming Encounters Date Type Department Care Team (Late st Contact Info) Description 03/12/2024 1:00 PM EDT Office Visit Hematology/Oncology at [address] [phone] Sony Lyons MD [facility] [place] [address] Dottie Lira APRN [address] [place] [address] DR HEMATOLOGY AND ONCOLOGY [place], [place] [address] 03/19/2024 2:30 PM EDT Office Visit Dermatology at [address] [place] [phone] Sam Johns MD [address] [place] [address] RD, [place] [address] documented as of this encounter Visit Diagnoses Diagnosis History of basal cell carcinoma Personal history of other malignant neoplasm of skin AK (actinic keratosis) Actinic keratosis documented in this encounter Care Teams Business Center Representative Relationship Specialty Start Date End Date Wimla Nance MD [address] [place] [address] PCP - General Family Medicine 09/18/17 documented as of this encounter
--- OUTSIDE RECORDS SUMMARY | 2024-03-10 01:28 | XMS_ITS | Encounter Summary ---
Author Organization [facility] [place] [address] Care Team Providers Care Machine Clothing Worker Name Role Phone Wilam Nance MD Primary Care Provider Encounter Details Date Type Department Care Team (Late Contact Info) Description 04/05/2021 Orders Only Sleep Center at [facility] [address] [place] [phone] Serenity Nair APRN [facility] DR SLEEP [place] [address] Social History Tobacco Use Types Packs/Day Years [...] 1:00 PM EDT Office Visit Hematology/Oncology at [address] [phone] Sony Lyons MD [facility] [place] [address] Dottie Lira APRN [address] [place] [address] DR [place] [address] 03/19/2024 2:30 PM EDT Office Visit Dermatology at [place] [address] [place] [phone] Sam Johns MD [address] [address], FU[address] Chow DERMATOLOGY [place], [place] [phone] documented as of this encounter Visit Diagnoses Not on filedocumented in this encounter Care Teams Machine Clothing Worker Relationship Specialty Start Date End Date Wilma Nance MD [address] [place] [address] PCP - General Family Medicine 09/18/17 documented as of this encounter
--- OUTSIDE RECORDS SUMMARY | 2024-03-10 01:28 | XMS_ITS | Encounter Summary ---
Author Organization [facility] Address [facility] [place] [address] Care Team Providers Care Fish Frog Or Oyster Farmer Name Role Phone Wilma Nance MD Primary Care Provider [phone] Encounter Details Date Type Department Care Team (Late Contact Info) Description 05/26/2020 External Results Pre-Admission Testing at [facility] [address] [place] [phone] Social History Tobacco Use Types Packs/Day Years [...] 1:00 PM EDT Office Visit Hematology/Oncology at [address] [phone] Sony Lyons MD [facility] [place] [address] Dottie Lira APRN [address] [place] [address] DR HEMATOLOGY AND ONCOLOGY [place], [place] [address] 03/19/2024 2:30 PM EDT Office Visit Dermatology at [place] [address] [place] [address] Sam Johns MD [address], [place] [address] documented as of this encounter Procedures Procedure Name Priority Date/Time Associated Diagnosis Comments ECG SCAN Routine 05/23/2020 LAB SCAN Routine 11/23/2019 documented in this encounter Results * Scan Doc: ECG (05/23/2020) Historical Provider MD MEDIA MGR SCAN EX T ORDR/RSLT * Scan Doc: Lab (11/23/2019) Historical Provider MD MEDIA MGR SCAN EX T ORDR/RSLT documented in this encounter Visit Diagnoses Not on filedocumented in this encounter Care Teams Fish Frog Or Oyster Farmer Relationship Specialty Start Date End Date Wilma Nance MD [address] [place] [address] PCP - General Family Medicine 09/18/17 documented as of this encounter
--- OUTSIDE RECORDS SUMMARY | 2024-03-10 01:28 | XMS_ITS | Encounter Summary ---
Author Organization [facility] [place] [address] Care Team Providers Care Traffic Enumerator Name Role Phone Wilma Nance MD Primary Care Provider Encounter Details Date Type Department Care Team (Late st Contact Info) Description 06/12/2020 9:00 AM EST Telephone Pre-Admission Testing at [facility] [place] [phone] Social History Tobacco Use Types Packs/Day Years [...] as of this encounter Progress Notes * Cyndy Gonzalez RN - 06/12/2020 11:04 AM EST EXPOSURE: Have you been in contact with anyone suspected of or confirmed to have COVID-19 in the PAST 14 DAYS? []Yes [x]No Have you traveled outside the [facility] in the PAST 14 DAYS? []Yes [x]No COVID-19 SCREENING: In the past 14 days, have you had any of the following symptoms: [] Fever (subjective or documented fever) [] Chills [] Cough [] Shortness of breath or difficulty breathing [] Fatigue [] Muscle or body aches [] Headache [] New loss of taste or smell [] Sore throat [] Nausea or vomiting [] Diarrhea [x]NONE OF THE ABOVE documented in this encounter Plan of Treatment Upcoming Encounters Date Type Department Care Team (Late st Contact Info) Description 03/12/2024 1:00 PM EDT Office Visit Hematology/Oncology at [address] [phone] Sony Lynos MD [facility] [place] [place] [address] Dottie Lira CAN DOFFER [address] [place] [address] DR HEMATOLOGY AND ONCOLOGY [place], [place] [address] 03/19/2024 2:30 PM EDT Office Visit Dermatology at [place] [address] [facility] [phone] Sam Johns MD [address] [facility], [place] [address] documented as of this encounter Visit Diagnoses Not on filedocumented in this encounter Care Teams Traffic Enumerator Relationship Specialty Start Date End Date Wilma Nance MD [address] [place] [address] PCP - General Family Medicine 09/18/17 documented as of this encounter
--- OUTSIDE RECORDS SUMMARY | 2024-03-10 01:28 | XMS_ITS | Encounter Summary ---
Author Organization [facility] [place] [address] Care Team Providers Care Bag Filler Name Role Phone Mikaela Cristy Awad APRN Primary Care Provider [phone] Encounter Details Date Type Department Care Team (Late Contact Info) Description 03/13/2016 Ancillary Procedure [place] [phone] Wilma Nance MD [address] [place] [phone] Social History Tobacco Use Types Packs/Day Years Used Date Smoking Tobacco: Every Day Cigarettes 1.5 15 Comments:Restarted trying to stop now Alcohol Use [...] PM EDT Office Visit Hematology/Oncology at [address] [phone] Sony Lyons MD [facility] [place] [address] Dottie Lira APRN [address] [place] [address] DR HEMATOLOGY [place] [address] 03/19/2024 2:30 PM EDT Office Visit Dermatology at [place] [address] [place] [phone] Sam Johns MD [address], [place] [address] documented as of this encounter Procedures Procedure Name Priority Date/Time Associated Diagnosis Comments FILM LIBRARY STORAGE ONLY CT ABDOMEN AND PELVIS Routine 03/13/2016 12:00 AM EDT documented in this encounter Results * Film Library- Storage Only CT Abdomen & Pelvis (03/13/2016 12:00 AM EDT) Narrative [facility] - 06/21/2022 2:21 PM EST This exam is auto-finalizing. It's purpose is for storage only. Wilma Nance MD IMG FILM LIBRARY ORD ERABLES [place], [place] documented in this encounter Visit Diagnoses Not on filedocumented in this encounter Care Teams Bag Filler Relationship Specialty Start Date End Date Cristy Al APRN PCP - General 06/19/10 09/17/17 documented as of this encounter
--- OUTSIDE RECORDS SUMMARY | 2024-03-10 01:28 | XMS_ITS | Encounter Summary ---
[place] [address] Care Team Providers Care Canoe Builder Name Role Phone Luce, Cristy Awad APRN Primary Care Provider [phone] Reason for Visit * Reason Comments Annual Exam Encounter Details Date Type Department Care Team (Late st Contact Info) Description 08/29/2016 11:15 AM EST Office Visit Dermatology at [address] [address] Sam Johns MD [address] [facility], [place] [address] History of basal cell carcinoma Social History Tobacco Use Types Packs/Day Years [...] Progress Notes * Sam Johns MD - 08/29/2016 11:15 AM EST PROBLEM: 1. Skin checkup. 2. History of BCCA right super brow 08/2015. Shiloh follows up and has been doing well. She continues to be active riding a horse and enjoying the outdoors, and asked about my own daughter's rabbits. Physical examination reveals a pleasant, fair-skinned, blue-eyed woman with moderate solar actinic damage of the forehead but no recurrence of her BCCA, nor does she have any actinic keratoses present today. She has a benign examination of the face, the chest, the back, the hands, arms, forearms, thighs and the calves. A/P: 1. Benign skin examination. a. Patient reassured about benign skin examination. b. No treatment necessary. c. Return to clinic in another year for repeat check. 2. History of BCCA right super brow 08/2015. a. No evidence of recurrence. Patient reassured. cc: Cristy Al APRN documented in this encounter Plan of Treatment Upcoming Encounters Date Type Department Care Team (Late st Contact Info) Description 03/12/2024 1:00 PM EDT Office Visit Hematology/Oncology at [address] [address] Sony Lyons MD [facility] [place] [address] Dottie Lira APRN [address] [place] [address] [place] [address] 03/19/2024 2:30 PM EDT Office Visit Dermatology at [address] [place] [address] Sam Johns MD [address] [place] [address], [place] [address] documented as of this encounter Visit Diagnoses Diagnosis History of basal cell carcinoma Personal history of other malignant neoplasm of skin documented in this encounter Care Teams Canoe Builder Relationship Specialty Start Date End Date Cristy Al APRN PCP - General 06/19/10 09/17/17 documented as of this encounter
--- OUTSIDE RECORDS SUMMARY | 2024-03-10 01:28 | XMS_ITS | Encounter Summary ---
[place] [address] Care Team Providers Care Decorating Supervisor Name Role Phone Wilma Nance MD Primary Care Provider [phone] Encounter Details Date Type Department Care Team (Late Contact Info) Description 05/29/2021 10:40 PM EDT Ancillary Procedure Radiology at [facility] [address] [place] [phone] Marion Abdalla MD [address] [place] [address] Social History Tobacco Use Types Packs/Day Years [...] 1:00 PM EDT Office Visit Hematology/Oncology at [address] [address] Sony Lyons MD [facility] [place] [address] Dottie Lira APRN [address] [place] [address] [place] [address] 03/19/2024 2:30 PM EDT Office Visit Dermatology at [place] [address] [place] [address] Sam Johns MD [address], [place] [address] documented as of this encounter Procedures Procedure Name Priority Date/Time Associated Diagnosis Comments FILM LIBRARY STORAGE ONLY MR SPINE Routine 05/29/2021 10:39 PM EDT documented in this encounter Results * Film Library- Storage Only MR Spine (05/29/2021 10:39 PM EDT) Narrative [facility] - 05/29/2021 10:39 PM EDT This exam is auto-finalizing. It's purpose is for storage only. Marion Abdalla MD IMG FILM LIBRARY ORDERABLES Performing Organization Address City/State/[facility] Co de Phone Number [place], [place] documented in this encounter Visit Diagnoses Not on filedocumented in this encounter Care Teams Decorating Supervisor Relationship Specialty Start Date End Date Wilma Nance MD [address] [place], [place] [address] PCP - General Family Medicine 09/18/17 documented as of this encounter
--- OUTSIDE RECORDS SUMMARY | 2024-03-10 01:28 | XMS_ITS | Encounter Summary ---
[place] [address] Care Team Providers Care Leaf Conditioner Name Role Phone Wilma Nance MD Primary Care Provider [phone] Encounter Details Date Type Department Care Team (Late st Contact Info) Description 04/13/2021 Telephone Sleep Center at [facility] [address] [place] [address] Serenity Nair APRN [facility] DR [place] [address] Social History Tobacco Use Types Packs/Day Years [...] encounter Miscellaneous Notes * Telephone Encounter - Serenity Nair APRN - 04/13/2021 1:41 PM EDT LVM regarding next steps: 1) Reconsider staying with [facility] for care and [facility] until she gets a replacement or repaired BPAP device--check with [facility] on status--as she has already been qualified for current BPAP and oxygen or ask [facility] for a change of DME order for BPAP supplies, replacement, oxygen, or 2) Continue re-establishment of care with [facility], and either stay with [facility] (recommended) or decide on new DME: Call [facility] or [facility] to ask if repeated sleep studies and oxygen requalification would be needed with DME change for BPAP supplies/service. There appears to be no break in BPAP usage. I couldsend DME and BPAP supplies order, at minimum. If new DME, they would need copies of previous sleep studies. Asked her to call for further questions, decision on DME, and [facility] or [facility] care f/u. SERENITY NAIR APRN documented in this encounter Plan of Treatment Upcoming Encounters Date Type Department Care Team (Late st Contact Info) Description 03/12/2024 1:00 PM EDT Office Visit Hematology/Oncology at [address] [address] Sony Lyons MD [facility] [place] [address] Dottie Lira APRN [address] [place] [address] DR HEMATOLOGY AND ONCOLOGY [place], [place] [address] 03/19/2024 2:30 PM EDT Office Visit Dermatology at [address] [place] [phone] Sam Johns MD [address] [place] [address], [place] [address] documented as of this encounter Visit Diagnoses Not on filedocumented in this encounter Care Teams Leaf Conditioner Relationship Specialty Start Date End Date Wilma Nance MD [address] [place] [address] PCP - General Family Medicine 09/18/17 documented as of this encounter
--- OUTSIDE RECORDS SUMMARY | 2024-03-10 01:28 | XMS_ITS | Encounter Summary ---
Author Organization [facility] Address [facility] [place] [address] Care Team Providers Care Calender Runner Name Role Phone Wilma Nance MD Primary Care Provider [phone] Encounter Details Date Type Department Care Team (Late st Contact Info) Description 05/09/2022 External [place] [phone] Social History Tobacco Use Types Packs/Day Years [...] PM EDT Office Visit Hematology/Oncology at [address] [phone] Sony Lyons MD [facility] [place] [address] Dottie Lira APRN [address] [place] [address] DR HEMATOLOGY AND ONCOLOGY [place], [place] [address] 03/19/2024 2:30 PM EDT Office Visit Dermatology at [address] [place] [address] Sam Johns MD [address] [facility], [place] [address] documented as of this encounter Procedures Procedure Name Priority Date/Time Associated Diagnosis Comments ECG SCAN Routine 05/09/2022 documented in this encounter Results * Scan Doc: ECG (05/09/2022) Historical Provider MD MENDEZ MGR SCAN EX T ORDR/RSLT documented in this encounter Visit Diagnoses Not on filedocumented in this encounter Care Teams Calender Runner Relationship Specialty Start Date End Date Wilma Nance MD [address] [place] [address] PCP - General Family Medicine 09/18/17 documented as of this encounter
--- OUTSIDE RECORDS SUMMARY | 2024-03-10 01:28 | XMS_ITS | Encounter Summary ---
Author Organization [facility] [place] [address] Care Team Providers Care Pattern Chain Maker Supervisor Name Role Phone Wilma Nance MD Primary Care Provider [phone] Reason for Visit * Auth/Cert Specialty Diagnoses / Procedures Referred By Contac t Referred To Contact Diagnoses Right Carpal Tunnel Syndrome Procedures PRO REVISE MEDIAN N/CARPAL TUNNEL SURG MEDIAN NERVE DECOMPRESSION (CARPAL TUNNEL RELEASE) (WRVU 4.97) Referral ID Status Reason Start Date Expiration Date Visits Re quested Visits Authorized [id number] 1 1 Encounter Details Date Type Department Care Team (Latest Contact Info) Description 06/20/2020 6:03 AM EST - 06/20/2020 8:38 AM EST Hospital Encounter Post Acute Care Unit at [facility] [address] [facility] [place] [address] Marion Abdalla MD [address] [facility] [place] [address] Carpal tunnel syndrome on right Discharge Disposition: Home Social History Tobacco Use Types Packs/Day Years [...] Sign Reading Time Taken Comments Blood Pressure 104/58 06/20/2020 8:18 AM EST Pulse 74 06/20/2020 6:22 AM EST Temperature 36.3 ??C (97.3 ??F) 06/20/2020 7:52 AM ES T Respiratory Rate 18 06/20/2020 8:18 AM EST Oxygen Saturation 94% 06/20/2020 8:18 AM EST Inhaled Oxygen Concentration - - Weight 108.9 kg (240 lb) 06/20/2020 6:22 AM EST Height 160 cm (5' 3) 06/20/2020 6:22 AM EST Body Mass Index 42.51 06/20/2020 6:22 AM EST documented in this encounter Discharge Instructions * Patient Instructions* Fede Dunn PA - 06/20/2020 6:55 AM EST Full recovery will depend on your having a strong, positive attitude, setting small goals for improvement and working steadily to accomplish those goals. PAIN: It is normal to have pain after this surgery. ??? This does not mean the hand and procedure were unsuccessful or that recovery will be delayed. ??? This is primarily caused by inflammation of the previously compressed nerve. ??? The pain will decrease as the nerve continues to heal. ??? Moist heat and/or ice and frequent repositioning may be of help. FOLLOW UP APPOINTMENTS: ??? You may have sutures that will need to be removed within 10-14 days after surgery. You may arrange to have your primary care provider remove them, if you live far away. Otherwise, a suture removal appointment will be made for you in our office. ??? You will have another scheduled follow-up appointment awith a Physician???s Ring Sorter 4-6 weeksfrom the date of surgery. ??? You will have a follow-up appointment scheduled with the surgeon 3 months following your surgery. MEDICATIONS: ??? Take your medicine at the time your doctor ordered. ??? Keep a list of your medicines, vitamins, and herbal supplement you take. Keep this list with you at all times. Show it to your caregiver at every visit. Keep the list up-to-date. ??? Ask your caregiver or pharmacist to write an explanation of each medicine you are taking. This should include: why you are taking it, possible side effects, best time of day to take it, what foods to take the medication with or foods to avoid, and when to stop taking it. ??? Only take [id number] or prescription medicine for pain, discomfort or fever as directed by your caregiver. ??? Consult your doctor or pharmacist with any questions. NEW MEDICATIONS AT DISCHARGE: []None []Given prescriptions in office preoperatively OR: Medication Dose/Route/ Frequency Prescription given? Reason for medication Medscape monograph discussed []Yes []No []Yes []No []Yes []No []Yes []No DIET: ??? Resume your normal diet as tolerated. ??? Be sure to drink plenty of fluids, particularly water. ??? Eat whole grain cereals, fruits and fruit juices to combat constipation sometimes caused by pain medication. ACTIVITY: ??? Keep the surgical site elevated and above heart level for 24 hours, and as needed for swelling. ??? Feel free to move your fingers as tolerated. ??? Other physical activities, including work, can be restarted only after consulting with your surgeon. ??? Consult your surgeon about when you can drive. o No set time restrictions. o Do not drive until you feel completely comfortable driving in an uninhibited manner. o It is recommended that you do not drive while taking higher doses of narcotic pain relievers. POST ANESTHESIA/SEDATION: ??? You have received medication for sedation and comfort during your procedure. Because these havenot completely left your system, please observe the following precautions: o Plan to relax for the next several hours. o DO NOT drive or operate machinery until the day after your procedure, longer as recommended by your surgeon. o Avoid alcohol for the next 24 hours. o Do not make any important personal or business decisions today. BANDAGE/SHOWERING: ??? You may remove the bandage and shower 3 days after surgery. ??? DO NOT scrub the incision. ??? Pat the area dry with a towel after showering. ??? Do NOT soak (baths, swimming, etc.) until you are 2 weeks out from surgery AND the sutures havebeen removed. ??? Any sutures will need to be removed 10-14 days after surgery. CALL YOUR SURGEON OR SEEK MEDICAL CARE IF: ??? There is redness, swelling or increasing pain in the wound or joint. ??? You notice purulent (colored, puss-like) drainage coming from the wound. ??? You develop an oral temperature over 101 degrees F. ??? You are unable to drink/keep fluids down due to nausea. ??? There is persistent bleeding from an incision. ??? You experience any NEW weakness or numbness. SMOKING CESSATION INFORMATION: ??? [place] QUITLINE: ??? [place] QUITLINE: ??? www.PayAllies If you smoke, stop now! Smoking may impede healing. MAKE SURE YOU: ??? Understand these instructions. ??? Will seek medical care if you are feeling poor, or get worse. ??? Will call the office with any questions or concerns at: [phone]. The above information has been presented or demonstrated. I/we have had the opportunity to ask questions. I/we fully understand the instructions given. I/we have received a copy of this form. documented in this encounter Medications at Time of Discharge Medication Sig Dispensed Refills Start Date End Date Cane Device .MEDSUPPLY 02/24/2020 albuteroL 90 mcg/actuation HFA Aerosol Inhaler Inhale 2 puffs into the lungs every 4 hours as needed for Wheezing. Use with spacer OXYGEN-AIR DELIVERY SYSTEMS MISC nightly. With c-pap 11/18/2017 celecoxib (CeleBREX) 200 mg Capsule TK 1 C PO BID 04/25/2020 cholecalciferol, Vitamin D3, (Vitamin D3) 1,000 unit Tablet Take 1,000 Units by mouth daily. folic acid (Folvite) 400 mcg Tablet Take 400 mcg by mouth daily. multivitamin (THERAGRAN) Tablet Take 1 tablet by mouth daily. Narcan 4 mg/actuation [place], Non-Aerosol ADMINISTER 1 SYRINGE FULL IN NOSTRIL NEEDED FOR EXCESSIVE SEDATION FROM CHRONIC OPIATE USE 01/06/2020 cyclobenzaprine (FLEXERIL) 10 mg Tablet TAKE 1 TABLET BY MOUTH 3 TIMES A DAY NEEDED DO NOT USE BEFORE DRIVING 0 11/26/2018 ESTRACE 0.01 % (0.1 mg/gram) Cream apply 2 grams vaginally two times a week 1 06/24/2017 levothyroxine (SYNTHROID) 175 mcg Tablet Take 175 mcg by mouth daily. 0 08/04/2017 oxyCODONE-acetaminophen (PERCOCET) 10-325 mg Tablet Take 1 tablet by mouth every 4 hours as needed. 08/26/2016 fluticasone propionate (FLONASE) 50 mcg/actuation [place], Suspension 2 sprays by Each Nare route daily. 03/26/2021 cephALEXin (KEFLEX) 500 mg Tablet Take 2,000 mg by mouth as needed. One hour prior to dental procedure 02/01/2021 buPROPion (WELLBUTRIN SR OR ZYBAN) 150 mg tablet sustained-release 12 hr Take 150 mg by mouth 2 times daily. 0 10/18/2018 02/05/2022 FLUoxetine (PROZAC) 20 mg Capsule Take 20 mg by mouth daily. 0 11/26/2018 02/05/2022 losartan (COZAAR) 50 mg Tablet 100 mg. 0 10/24/2018 03/26/2021 rOPINIRole (Requip) 1 mg Tablet Take 1 mg by mouth nightly. 1 11/18/2018 03/26/2021 fentaNYL (DURAGESIC) 25 mcg/hr Patch 72 hrIndications:Every 72 hours Change 1 patch on the skin. Indications: Every 72 hours 06/17/2017 02/01/2021 gabapentin (NEURONTIN) 600 mg Tablet Take 1,800 mg by mouth nightly. 08/14/2016 03/26/2021 documented as of this encounter Progress Notes * Cali Morrissey RN - 06/20/2020 8:48 AM EST Pt d/c'd from PACU. Pt had uneventful recovery. Tolerating liquid and solid food at time of d/c. Denied pain. AVS reviewed, pt denied questions or concerns. Pt escorted out of PACU in WC and assistedinto POV without incidence. documented in this encounter H&P Notes * Fede Dunn PA - 06/20/2020 6:55 AM EST Patient Name: Shiloh Anderson Patient Age: 74 y.o. Birthdate: 1945 Admit date: 06/20/2020 Attending Physician: Marion Abdalla MD The patient's history and physical exam have been reviewed and completed. There has been no interval change from that of the pre-operative history and physical exam done within the last 30 days. documented in this encounter Miscellaneous Notes * Op Note - Marion Abdalla MD - 06/20/2020 8:00 AM EST [facility] [place] [address] Patient Name: Shiloh Anderson : [id number] MR#: [id number] Case Date: 06/20/2020 Surgeon: Surgeon(s) and Role: * Marion Abdalla MD - Primary * Fede Dunn PA - Physician Ring Sorter Preoperative diagnosis: Right Carpal Tunnel Syndrome Postoperative diagnosis: Right Carpal Tunnel Syndrome Procedure(s): MEDIAN NERVE DECOMPRESSION (CARPAL TUNNEL RELEASE) (WRVU 4.97) Right carpal tunnel release Anesthesia: Monitored anesthesia and local Findings: compression of median nerve identified, nerve intact. No blood loss Complications: none Estimated Blood Loss: * No values recorded between 06/20/2020 7:37 AM and 06/20/2020 7:48 AM * Specimens removed during surgery: None Fluids: Intraprocedure Crystalloid Total Intake Lactated Ringers 300.00 mL Total Intake 300 mL Output Blood Loss 0 mL Total Output 0 mL Net Net Volume 300 mL Fluids: ANES IntraOp Crystalloid (Filter: (AN Fluids) Medications Shown) Medication Calculated Total No medications were administered. Blood: none Urine Output: (no urine output recorded) Drains: none Disposition: awakened from anesthesia and taken to the recovery room in a stable condition, having suffered no apparent untoward event. Condition: doing well without problems (Please see the Surgical Encounter Summary for any Implant and Specimen details pertinent to this patient.) Infection Bundle used? N/A Indications for the Procedure: Shiloh Anderson is a 74 y.o. female with a confirmed carpal tunnel syndrome that did not respond to conservative measures. She has had the left side released approximately 3 weeks ago with excellent results. she agreed to proceed with surgical intervention after this was offered with risks including but not excluding infection, bleeding, failure to improve, recurrence, or nerve injury. Alternative treatments also discussed. Nerve conduction studies have shown compression at the carpal ligament. Description of the Procedure: Patient was met in the preop holding area the site was marked and consent was signed. Patient was then taken to the operating room and under monitored anesthesia the right hand was prepped and draped in the usual sterile fashion and injected with a 10 cc of local anesthetic lidocaine without epi. The incision is made just distal to the transverse crease approximately2 cm in length ulnar to the lifeline. Taken down to the transverse carpal ligament. The transverse carpal ligament is then incised with a fresh 15 blade until the median nerve is identified. Further decompression then performed with scissors proximal distal along the median nerve until full decompression was obtained. A [place] was used distally and proximally to confirm full release of the median nerve. Copious irrigation was used with saline containing bacitracin. Bipolar cautery is used to coagulate small subcutaneous veins. Closure was then performed with interrupted 4-0 Prolene. Xeroform dressing a sterile bulky dressing was then applied. The patient is taken to the recovery room in stable condition having tolerated well. ANES IntraOp Crystalloid (Filter: (AN Fluids) Medications Shown) Medication Calculated Total No medications were administered. () Fede Dunn worked under my direction for the duration of the operative session. The assistant production editor adequately prepped the operative site and maintained the best possible exposure of anatomy incident to the procedure. Marion Abdalla MD 06/20/2020 documented in this encounter Plan of Treatment Upcoming Encounters Date Type Department Care Team (Late st Contact Info) Description 03/12/2024 1:00 PM EDT Office Visit Hematology/Oncology at [address] [address] Sony Lyons MD [facility] [place] [address] Dottie Lira APRN [address] [place] [address] DR [place]EMATOLOGY [place] [address] 03/19/2024 2:30 PM EDT Office Visit Dermatology at [place] [address] [place] [address] Sam Johns MD [address], [place] [address] documented as of this encounter Procedures Procedure Name Priority Date/Time Associated Diagnosis Comments Revise Median N/Carpal Tunnel Surg (10520) Yes 06/20/2020 7:26 AM EST Right Carpal Tunnel Syndrome documented in this encounter Visit Diagnoses Diagnosis Carpal tunnel syndrome on right Carpal tunnel syndrome documented in this encounter Administered Medications Inactive Administered Medications - up to 3 most recent administrations Medication Order MAR Action Action Date Dose Rate Site acetaminophen (Tylenol) tablet 1,000 mg 1,000 mg, Oral, ONCE, 1 dose, On Fri06/20/20 at 0645, Administer with SIP of H2O only., Day of Surgery (Day of Procedure), Routine Given 06/20/2020 6:59 AM EST 1,000 mg lactated ringers infusion 1,000 mL, at 50 mL/hr, Intravenous, CONTINUOUS, Starting on Fri06/20/20 at 0645, Until Fri06/20/20 at 0848, Day of Surgery (Day of Procedure) New Bag 06/20/2020 6:56 AM EST 1,000 mLs 50 mL/hr documented in this encounter Active and Recently Administered Medications Times are shown in EST. Scheduled Medication Order 06/18/2020 06/19/2020 06/20/2020 acetaminophen (Tylenol) tablet 1,000 mg (COMPLETED) 1,000 mg, Oral, ONCE, 1 dose, On e 06/20/20 at 0645, Administer with SIP of H2O only., Day of Surgery (Day of Procedure), Routine 0659 (Given - Provid er: Shanti Morrissey RN) ceFAZolin (Ancef) 2 g in dextrose 5% 100 mL infusion (COMPLETED) 2 g, Intravenous, ONCE, 1 dose, On Fri06/20/20 at 0645, Administer over 30 Minutes, To be administered upon arrival to the OR within one hour prior to incision., Day of Surgery (Day of Procedure), Indication for (Active or Suspected): Prophylaxis 0730 (Given - Provid er: Jayla Sylvester CRNA) Continuous Medication Order 06/18/2020 06/19/2020 06/20/2020 lactated ringers infusion (CANCELED) 1,000 mL, at 50 mL/hr, Intravenous, CONTINUOUS, Starting on Fri06/20/20 at 0645, Until Fri06/20/20 at 0848, Day of Surgery (Day of Procedure) 0656 ([facility] - Prov ider: Shanti Morrissey RN) PRN Medication Order 06/18/2020 06/19/2020 06/20/2020 lidocaine (pf) (Xylocaine) (10 mg/mL) 1% injection (CANCELED) ONCE PRN, Starting on Fri06/20/20 at 0735, Until Fri06/20/20 at 1015, Intra-Operative (Intra-Procedure), Routine 0735 (Given - Provid er: Marion Abdalla MD) documented in this encounter Care Teams Pattern Chain Maker Supervisor Relationship Specialty Start Date End Date Wilma Nance MD [address] [place] [address] PCP - General Family Medicine 09/18/17 documented as of this encounter
--- OUTSIDE RECORDS SUMMARY | 2024-03-10 01:28 | XMS_ITS | Encounter Summary ---
Author Organization [facility] [place] [address] Care Team Providers Care Asbestos Abatement Worker Name Role Phone Wilma Nance MD Primary Care Provider [phone] Encounter Details Date Type Department Care Team (Late st Contact Info) Description 05/22/2020 11:15 AM EDT Telephone Pre-Admission Testing at [facility] [place] [address] Social History Tobacco Use Types Packs/Day Years [...] as of this encounter Progress Notes * Flores Navarro RN - 05/22/2020 11:56 AM EDTSummary: Covid EXPOSURE: Have you been in contact with anyone suspected of or confirmed to have COVID-19 in the PAST 14 DAYS? [x]Yes []No Have you traveled outside the [facility] in the PAST 14 DAYS? []Yes [x]No [...] 1:00 PM EDT Office Visit Hematology/Oncology at [address] [phone] Sony Lyons MD [facility] [place] [address] Dottie Lira APRN [address] [place] [address] DR HEMATOLOGY AND ONCOLOGY [place], [place] [address] 03/19/2024 2:30 PM EDT Office Visit Dermatology at [place] [address] [facility] [place] [phone] Sam Johns MD [address] [facility], [place] [address] documented as of this encounter Visit Diagnoses Not on filedocumented in this encounter Care Teams Asbestos Abatement Worker Relationship Specialty Start Date End Date Wilma Nance MD [address] [place] [address] PCP - General Family Medicine 09/18/17 documented as of this encounter
--- OUTSIDE RECORDS SUMMARY | 2024-03-10 01:28 | XMS_ITS | Encounter Summary ---
Author Organization [facility] [place] [address] Care Team Providers Care Lpn Private Duty Name Role Phone Wilma Nance MD Primary Care Provider [phone] Encounter Details Date Type Department Care Team (Late Contact Info) Description 05/18/2018 Interpretation Only [address] [place] [phone] Marion Abdalla MD [address] [place] [address] Social History Tobacco Use Types Packs/Day Years [...] 1:00 PM EDT Office Visit Hematology/Oncology at [address] [phone] Sony Lyons MD [facility] [place] [address] Dottie Lira APRN [address] [place] [address] DR [place] [address] 03/19/2024 2:30 PM EDT Office Visit Dermatology at [place] [address] [facility] [place] [phone] Sam Johns MD [address] [address], [place] [address] documented as of this encounter Procedures Procedure Name Priority Date/Time Associated Diagnosis Comments XR O-ARM MORE THAN ONE HOUR Routine 05/18/2018 11:45 AM EDT documented in this encounter Results * XR O-Arm More Than One Hour (05/18/2018 11:45 AM EDT) Anatomical Region Laterality Modality Other 05/18/2018 11:4 5 AM EDT Impressions 05/20/2018 1:24 PM EDT C-arm fluoroscopy used for intraoperative guidance. Fluoroscopy time: 7.13 Dose: Exposure 2.7 R Narrative 05/20/2018 1:24 PM EDT EXAMINATION: O-ARM ( =>1HR ) CLINICAL HISTORY: L3-4 4-5 L5-S1 DECOMPRESSION L4-5 SEGMENTED FUSION PLIF - OR ROOM 2, ?? Intraoperative C-arm and CT used for multilevel lumbosacral decompression and fusion Procedure Note Fide Eyl MD - 05/20/2018 EXAMINATION: O-ARM ( =>1HR ) CLINICAL HISTORY: L3-4 4-5 L5-S1 DECOMPRESSION L4-5 SEGMENTED FUSION PLIF- OR ROOM 2, Intraoperative C-arm and CT used for multilevel lumbosacral decompressionand fusion IMPRESSION C-arm fluoroscopy used for intraoperative guidance. Fluoroscopy time: 7.13 Dose: Exposure 2.7 R Marion Abdalla MD PACS IMAGES documented in this encounter Visit Diagnoses Not on filedocumented in this encounter Care Teams Lpn Private Duty Relationship Specialty Start Date End Date Wilma Nance MD [address] [place] [address] PCP - General Family Medicine 09/18/17 documented as of this encounter
--- OUTSIDE RECORDS SUMMARY | 2024-03-10 01:28 | XMS_ITS | Encounter Summary ---
Author Organization [facility] [place] [address] Care Team Providers Care Chief Jailer Name Role Phone Wilma Nance MD Primary Care Provider [phone] Reason for Visit * Auth/Cert Specialty Diagnoses / Procedures Referred By Contac t Referred To Contact Diagnoses CARPAL TUNNEL SYNDROME Procedures PRO REVISE MEDIAN N/CARPAL TUNNEL SURG MEDIAN NERVE DECOMPRESSION (CARPAL TUNNEL RELEASE) (WRVU 4.97) Referral ID Status Reason Start Date Expiration Date Visits Re quested Visits Authorized [id number] 1 1 Encounter Details Date Type Department Care Team (Late st Contact Info) Description 05/29/2020 7:30 AM EST - 05/29/2020 8:27 AM EST Surgery Operating Room [facility] [address] Marion Abdalla MD [address] [place] [address] MEDIAN NERVE DECOMPRESSION (CARPAL TUNNEL RELEASE) (WRVU 4.97) Social History Tobacco Use Types Packs/Day Years [...] Sign Reading Time Taken Comments Blood Pressure 134/63 05/29/2020 8:15 AM EST Pulse 83 05/29/2020 8:15 AM EST Temperature 37.1 ??C (98.8 ??F) 05/29/2020 8:15 AM ES T Respiratory Rate 16 05/29/2020 8:15 AM EST Oxygen Saturation 95% 05/29/2020 8:15 AM EST Inhaled Oxygen Concentration - - Weight 110.7 kg (244 lb) 05/29/2020 6:51 AM EST Height 160 cm (5' 3) 05/29/2020 6:51 AM EST Body Mass Index 43.22 05/29/2020 6:51 AM EST documented in this encounter Discharge Instructions * Patient Instructions* Chandra Valenzuela PA - 05/29/2020 6:56 AM EST Full recovery will depend on [...] another scheduled follow-up appointment awith a Physician???s Production Solderer 4-6 weeksfrom the date of surgery. ??? [...] to stop taking it. ??? Only take [id number]-[id number] or prescription medicine for pain, discomfort or [...] weakness or numbness. SMOKING CESSATION INFORMATION: ??? [place] QUITLINE: ??? [place] QUITLINE: ??? [email or web address] If you smoke, stop now! Smoking may impede healing. MAKE SURE YOU: ??? Understand these instructions. ??? Will seek medical care if you are feeling poor, or get worse. ??? Will call the office with any questions or concerns at: [phone]. The above information has been presented or demonstrated. I/we have had the opportunity to ask questions. I/we fully understand the instructions given. I/we have received a copy of this form. documented in this encounter Medications at Time of Discharge Medication Sig Dispensed Refills Start Date End Date Cane Device .MEDSUPPLY 02/24/2020 OXYGEN-AIR DELIVERY SYSTEMS MISC nightly. With c-pap 11/18/2017 celecoxib (CeleBREX) 200 mg Capsule TK 1 C PO BID 04/25/2020 cholecalciferol, Vitamin D3, (Vitamin D3) 1,000 unit Tablet Take 1,000 Units by mouth daily. folic acid (Folvite) 400 mcg Tablet Take 400 mcg by mouth daily. multivitamin (THERAGRAN) Tablet Take 1 tablet by mouth daily. Narcan 4 mg/actuation [place], Non-Aerosol ADMINISTER 1 SYRINGE FULL IN NOSTRIL [...] mouth every 4 hours as needed. 08/26/2016 gabapentin (NEURONTIN) 600 mg Tablet Take 600 mg by mouth daily. 06/12/2020 cephALEXin (KEFLEX) 500 mg Tablet Take 2,000 [...] as of this encounter Progress Notes * Marilu Pozo RN - 05/29/2020 8:59 AM EST Pt met phase 1/2 recovery with no complications. Pt denies pain or nausea. Pt took fco don and muffin prior to discharge to home. Friend, Yissel in and discharge instructions given and all questions answered. Pt encouraged to elevate arm,wiggle fingers and keep incision site clean and dry. Pt states she lives in a dirty home and dressing was encouraged to remain on per MD. Pt up to bathroom to void and dress. Pt then brought via to Main Entrance and discharged home via ride service. documented in this encounter H&P Notes * Chandra Valenzuela PA - 05/29/2020 6:54 AM EST Patient Name: Shiloh Anderson Patient Age: 74 y.o. Birthdate: 1945 Admit date: 05/29/2020 Attending Physician: Marion Abdalla MD The patient's history and physical exam have been reviewed and completed. There has been no interval change from that of the pre-operative history and physical exam done within the last 30 days. documented in this encounter Miscellaneous Notes * Op Note - Marion Abdalla MD - 05/29/2020 7:55 AM EST [facility] [place] [address] Patient Name: Shiloh Anderson : [id number] MR#: [id number] Case Date: 05/29/2020 Surgeon: Surgeon(s) and Role: * Marion Abdalla MD - Primary Preoperative diagnosis: CARPAL TUNNEL SYNDROME Postoperative diagnosis: CARPAL TUNNEL SYNDROME Procedure(s): MEDIAN NERVE DECOMPRESSION (CARPAL TUNNEL RELEASE) (WRVU 4.97) Left carpal tunnel release Anesthesia: Anesthesia type not filed in the log. Local and monitored anesthesia Findings: compression of median nerve identified, nerve intact. Complications: none Estimated Blood Loss: * No values recorded between 05/29/2020 7:37 AM and 05/29/2020 7:45 AM * Specimens removed during surgery: None Fluids: Intraprocedure Crystalloid Total Intake lactated ringers infusion 300.00 mL Total Intake 300 mL Fluids: ANES IntraOp Crystalloid (Filter: [...] that did not respond to conservative measures. As she has a severe nocturnal symptoms and the weakness in the hand especially ABP she agreed to proceed with surgical intervention [...] operating room and under monitored anesthesia the left hand was prepped and draped in the usual sterile fashion and injected with a 10 cc of local anesthetic lidocaine without epi. The incision is made just distal to the transverse crease approximately 2 cm in length ulnar to the lifeline. Taken down to the transverse carpal ligament. The transverse carpal ligament is then incised with a fresh 15 blade until the median nerve is identified. Further decompression then performed with scissors proximal distal along the median nerve until full decompression was obtained. A Kabetogama was used distally and proximally to confirm full release of the median nerve. Copious irrigation was used with saline containing bacitracin. Bipolar cautery is used to coagulate small subcutaneous veins. Closure was then performed with interrupted 4-0 Prolene. Xeroformdressing a sterile bulky dressing was then applied. The patient is taken to the recovery room in stable condition having tolerated well. ANES IntraOp Crystalloid (Filter: (AN Fluids) Medications Shown) Medication Calculated Total No medications were administered. Marion Abdalla MD 05/29/2020 documented in this encounter Plan of Treatment Upcoming Encounters Date Type Department Care Team (Late st Contact Info) Description 03/12/2024 1:00 PM EDT Office Visit Hematology/Oncology at [address] [phone] Sony Lyons MD [facility] [place] [address] Dottie Lira APRN [address] [place] [address] DR HEMATOLOGY AND ONCOLOGY [place], [place] [address] 03/19/2024 2:30 PM EDT Office Visit Dermatology at [address] [place] [phone] Sam Johns MD [address] [facility] [facility] [address], [place] [address] documented as of this encounter Procedures Procedure Name Priority Date/Time Associated Diagnosis Comments Revise Median N/Carpal Tunnel Surg (83340) 05/29/2020 7:25 AM EST CARPAL TUNNEL SYNDROME documented in this encounter Visit Diagnoses Not on filedocumented in this encounter Administered Medications Inactive Administered Medications - up to 3 most recent administrations Medication Order MAR Action Action Date Dose Rate Site lidocaine (PF) (Xylocaine) 1% (10 mg/mL) injection ONCE PRN, Starting on Fri05/29/20 at 0740, Until Fri05/29/20 at 0851, Intra-Operative (Intra-Procedure), Routine Given 05/29/2020 7:40 AM EST 10 mLs 19- Surgical Site documented in this encounter Active and Recently Administered Medications Due to Daylight Saving Time, this section may contain times in both EDT and EST. Scheduled Medication Order 05/27/2020 05/28/2020 05/29/2020 ceFAZolin (Ancef) 2 g in dextrose 5% 100 mL infusion (COMPLETED) 2 g, Intravenous, ONCE, 1 dose, On Fri05/29/20 at 0715, Administer over 30 Minutes, To be administered upon arrival to the OR within one hour prior to incision., Day of Surgery (Day of Procedure), Indication for (Active or Suspected): Prophylaxis 0730 (Given - Provid er: Esme Armstrong CRNA) Continuous Medication Order 05/27/2020 05/28/2020 05/29/2020 lactated ringers infusion (CANCELED) 1,000 mL, at 50 mL/hr, Intravenous, CONTINUOUS, Starting on Fri05/29/20 at 0715, Until Fri05/29/20 at 0854, Day of Surgery (Day of Procedure) 0725 (New Bag - Prov ider: Esme Armstrong CRNA)0742 (Anesthesia Volume Adjustment - Provider: Esme Armstrong CRNA) PRN Medication Order 05/27/2020 05/28/2020 05/29/2020 lidocaine (PF) (Xylocaine) 1% (10 mg/mL) injection (CANCELED) ONCE PRN, Starting on Fri05/29/20 at 0740, Until Fri05/29/20 at 0851, Intra-Operative (Intra-Procedure), Routine 0740 (Given - Provid er: Marion Abdalla MD) documented in this encounter Care Teams Chief Jailer Relationship Specialty Start Date End Date Wilma Nance MD [address] [place] [address] PCP - General Family Medicine 09/18/17 documented as of this encounter
--- OUTSIDE RECORDS SUMMARY | 2024-03-10 01:28 | XMS_ITS | Encounter Summary ---
[place] [address] Care Team Providers Care Exhaust Machine Operator Name Role Phone Wilma Nance MD Primary Care Provider [phone] Reason for Visit * Reason Comments Follow-up Skin Check Encounter Details Date Type Department Care Team (Late st Contact Info) Description 11/27/2018 10:45 AM EDT Office Visit Dermatology at [address] [phone] Sam Johns MD [address] [facility] [place] [address] History of basal cell carcinoma; AK (actinic [...] Progress Notes * Sam Johns MD - 11/27/2018 10:45 AM EDT Problem: 1. Skin checkup, 1 year 2. 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 She is slowing down more and continuing to fight her weight gain which is limiting her physical abilities and outdoor activities. She is training a new Syriac Delgadillo, now [id number], to be a guide dog. Physical examination reveals a fair skinned blue-eyed woman 73 with moderate to severe solar damageof the forehead upper chest and arms. She has no evidence of recurrent BCCA on the right supra brow. She has benign examination of the face the neck the chest the back the hands the arms forearms thighs and the calves. She has actinic keratoses one on the left lateral eyebrow and one on the left mid forehead. She has multiple senile purpura and ecchymoses and cuts and scratches from her young dog on her dorsal hand and forearm. Assessment and plan: Actinic keratoses, two facial sites 1. LN 2 x 2 but each of 2 sites 2. Continue sun avoidance precautions, which patient is trying to follow History of BCCA right supra brow, August 2015 1. No evidence of recurrence 2. Patient reassured Benign skin examination 1. Patient reassured reassured about the remainder of benign skin examination return to clinic another year for repeat check. CC: Wilma Wilson MD documented in this encounter Plan of Treatment Upcoming Encounters Date Type Department Care Team (Late st Contact Info) Description 03/12/2024 1:00 PM EDT Office Visit Hematology/Oncology at [address] [phone] Sony Lyons MD [facility] [place] [address] Dottie Lira APRN [address] [place] [address] DR HEMATOLOGY [place] [address] 03/19/2024 2:30 PM EDT Office Visit Dermatology at [address] [place] [address] Sam Johns MD [address] [place] [address], [address] [place] [address] documented as of this encounter Visit Diagnoses Diagnosis History of basal cell carcinoma Personal history of other malignant neoplasm of skin AK (actinic keratosis) Actinic keratosis documented in this encounter Care Teams Exhaust Machine Operator Relationship Specialty Start Date End Date Wilma Nance MD [address] [place] [address] PCP - General Family Medicine 09/18/17 documented as of this encounter
--- OUTSIDE RECORDS SUMMARY | 2024-03-10 01:28 | XMS_ITS | Encounter Summary ---
Author Organization [facility] [place] [address] Care Team Providers Care Digital Sales Representative Name Role Phone Wilma Nance MD Primary Care Provider [phone] Reason for Visit * Auth/Cert Specialty Diagnoses / Procedures Referred By Contac t Referred To Contact Diagnoses CARPAL TUNNEL SYNDROME Procedures PRO REVISE MEDIAN N/CARPAL TUNNEL SURG MEDIAN NERVE DECOMPRESSION (CARPAL TUNNEL RELEASE) (WRVU 4.97) Referral ID Status Reason Start Date Expiration Date Visits Re quested Visits Authorized [id number] 1 1 Encounter Details Date Type Department Care Team (Late st Contact Info) Description 05/29/2020 7:25 AM EST Anesthesia [place] [address] [place] [address] Anesthesia Record Procedure Summary Procedure Name Responsible Anesthesiologist Anesthesia Start Time Anesthesia Stop Time MEDIAN NERVE DECOMPRESSION (CARPAL TUNNEL RELEASE) (WRVU 4.97) (Left: Hand) Esme Armstrong CRNA 05/29/20 0725 05/29/20 0749 Events Date Time Event Comment 05/29/2020 0725 AN Verify 0725 Start 0725 An Start Data 0730 Anesthesia Ready 0737 Procedure Start 0749 an stop data 0749 Recovery or ICU Handoff Emilia ent care was transferred to the destination unit staff after review of the patient's medical history, current anesthetic/surgical status and plan, according to the Provider Handoff Checklist. 0749 Stop 0756 Meds Name Total Midazolam 2 mg IV Lidocaine 100 mg Propofol 100 mg ceFAZolin (Ancef) 2 g in dextrose 5% 100 mL infusion 2 g lactated ringers infusion 300 mL * Agents Name O2 Air N2O * Blood No blood administrations on file. Lines, Drains, and Airways Type Details Placement Removal Incision 09/28/12; breast; 03/25/22 (LDA cleanup utility RA#[id number]); 1715 (LDA cleanup utility RA#[id number]) 09/28/12 0000 by Gaby Conley RN 03/25/22 1715 by Amie Arboleda (RETIRED) Peripheral IV Line - Single Lumen 05/29/20; 0703; median cubital vein (antecubital fossa), left; [id number] catheter system; 20 gauge; ED; distraction; no longer indicated, removed per policy/procedure, catheter/device intact; 05/29/20; 0825 05/29/20 0703 by Cesilia Thapa RN 05/29/20 0825 by Marilu Pozo RN Incision 05/29/20; 0737; palm ; vertical; 03/25/22 (LDA cleanup utility RA#[id number]); 1715 (LDA cleanup utility RA#[id number]) 05/29/20 0737 by Risa Sheth RN 03/25/22 1715 by Amie Arboleda documented [...] OR Notes * Anesthesia Postprocedure Evaluation - Esme Armstrong CRNA - 05/29/2020 7:55 AM EST Department of Anesthesiology Post-procedure Note Patient: Shiloh Anderson Procedure Summary Date: 05/29/20 Room / Location: [facility] OR MAIN OR Anesthesia Start: 724 Anesthesia Stop: 748 Procedure: MEDIAN NERVE DECOMPRESSION (CARPAL TUNNEL RELEASE) (WRVU 4.97) (Left Hand) Diagnosis: (CARPAL TUNNEL SYNDROME) Surgeon: Marion Abdalla MD Responsible Provider: Esme Armstrong CRNA Anesthesia Type: MAC ASA Status: 3 All Anesthesia Providers: ZACH Independent: Esme Armstrong CRNA Vitals Value Taken Time BP Temp Pulse Resp SpO2 Pain Level Patient Location: PACU/[facility] Level of Consciousness: Awake and Alert Pain Management: Satisfactory Analgesia PONV: None Cardiovascular Status: At Baseline and Hemodynamically Stable Respiratory Status: At Baseline and Room Air Postoperative Fluid Status: Intravascular EUvolemia Possible Anesthetic Complications: NONE apparent at time of evaluation Final Primary Anesthesia Type: MAC (The anesthetic type performed was the same as planned.) Comments: Esme Armstrong CRNA * Anesthesia Preprocedure Evaluation - Esme Armstrong CRNA - 05/29/2020 7:15 AM EST Pre-Anesthesia Evaluation for: Shiloh Anderson a 74 y.o. female. Procedure(s): MEDIAN NERVE DECOMPRESSION (CARPAL TUNNEL RELEASE) (WRVU 4.97) Patient Active Problem List Diagnosis ??? History of basal cell carcinoma ??? Breast mass Past Medical History: Diagnosis Date ??? Arthritis ??? Cancer Basal cell ca ??? COPD (chronic obstructive pulmonary disease) ??? CPAP (continuous positive airway pressure) dependence ??? Fibromyalgia ??? Gastroesophageal reflux ??? Heart valve disease 2018 intermittently, saw cardsiology. Not concerned per pt ??? High blood pressure ??? Hypertension ??? Hypothyroid ??? Irregular heart beat ??? 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 Mental health problem Depression ??? Obstructive sleep apnea ??? SUGEY on CPAP ??? Oxygen dependent ??? Peptic ulcer disease peptic ulcer, very mild ??? Thyroid disease hypothyroid Past Surgical History: [...] (LUMPECTOMY) performed by [facility]val Rodas MD at [facility] ??? SHOULDER SURGERY Left semisphere replacement (not a reverse replacement) ??? SHOULDER SURGERY Right open repair then second time for debridement ??? UPPER GASTROINTESTINAL ENDOSCOPY Social History Tobacco [...] Temp Pulse Resp BP SpO2 O2 Device 05/29/20 0651 36.4 ??C (97.5 ??F) 79 16 145/77 95 % RA Body mass index is 43.22 kg/m??. Height: 160 cm (5' 3) Weight: 110.7 kg (244 lb) Airway Assessment: Mallampati: II TM distance: <3 FB Neck ROM: full Cardiovascular Assessment: cardiovascular exam normal Pulmonary Assessment: (+) wheezes Dental Assessment: Misc Assessment: Anesthesia Plan: ASA 3 MAC, with a(n) intravenous induction Informed Consent: Anesthetic plan and risks discussed with patient. Use of blood products discussed with patient who consented to blood products. Plan discussed with ZACH. PAT Clinic Note documented in this encounter Plan of Treatment Upcoming Encounters Date Type Department Care Team (Late st Contact Info) Description 03/12/2024 1:00 PM EDT Office Visit Hematology/Oncology at [address] [phone] Sony Lyons MD [facility] [place] [address] Dottie Lira APRN [address] [place] [address] [place] [address] 03/19/2024 2:30 PM EDT Office Visit Dermatology at [place] [address] [facility] [place] [address] Sam Johns MD [address], [place] [address] documented as of this encounter Visit Diagnoses [...] Indication for (Active or Suspected): Prophylaxis Given 05/29/2020 7:30 AM EST 2 g lactated ringers infusion 1,000 mL, at 50 mL/hr, Intravenous, CONTINUOUS, Starting on Fri05/29/20 at 0715, Until Fri05/29/20 at 0854, Day of Surgery (Day of Procedure) New Bag 05/29/2020 7:25 AM EST lidocaine (PF) (XYLOCAINE) 100 mg/5 mL (2 %) injection PRN, Starting on Fri05/29/20 at 0727, Until Fri05/29/20 at 0749, Anesthesia Intra-op, Routine Given 05/29/2020 7:27 AM EST 100 mg midazolam (PF) (VERSED) multi-dose injection PRN, Starting on Fri05/29/20 at 0725, Until Fri05/29/20 at 0749, Anesthesia Intra-op, Routine Given 05/29/2020 7:25 AM EST 2 mg propofoL (Diprivan) 10 mg/mL bolus injection (Anesthesia) PRN, Starting on Fri05/29/20 at 0730, Until Fri05/29/20 at 0749, Anesthesia Intra-op Given 05/29/2020 7:37 AM EST 30 mg Given 05/29/2020 7:34 AM EST 30 mg Given 05/29/2020 7:30 AM EST 40 mg documented in this encounter Care Teams Digital Sales Representative Relationship Specialty Start Date End Date Wilma Nance MD [address] [place] [address] PCP - General Family Medicine 09/18/17 documented as of this encounter
--- OUTSIDE RECORDS SUMMARY | 2024-03-10 01:28 | XMS_ITS | Encounter Summary ---
Author Organization [facility] [place] [address] Care Team Providers Care Journeyman Patternmaker Name Role Phone Wilma Nance MD Primary Care Provider [phone] Reason for Visit * Auth/Cert Specialty Diagnoses / Procedures Referred By Contshaneka t Referred To Contact Diagnoses Right Carpal Tunnel Syndrome Procedures PRO REVISE MEDIAN N/CARPAL TUNNEL SURG MEDIAN NERVE DECOMPRESSION (CARPAL TUNNEL RELEASE) (WRVU 4.97) Referral ID Status Reason Start Date Expiration Date Visits Re quested Visits Authorized [id number] 1 1 Encounter Details Date Type Department Care Team (Late st Contact Info) Description 06/20/2020 7:30 AM EST - 06/20/2020 8:17 AM EST Surgery Operating Room [facility] [place] [address] Marion Abdalla MD [address] [place] [address] MEDIAN NERVE DECOMPRESSION (CARPAL TUNNEL RELEASE) (WRVU [...] Sign Reading Time Taken Comments Blood Pressure 110/62 06/20/2020 8:07 AM EST Pulse 74 06/20/2020 6:22 AM EST Temperature 36.3 ??C (97.3 ??F) 06/20/2020 7:52 AM ES T Respiratory Rate 18 06/20/2020 8:07 AM EST Oxygen Saturation 93% 06/20/2020 8:07 AM EST Inhaled Oxygen Concentration - - [...] another scheduled follow-up appointment awith a Physician???s Clinical Director 4-6 weeksfrom the date of surgery. ??? [...] to stop taking it. ??? Only take cmqo-vya-zqfembz or prescription medicine for pain, discomfort or [...] weakness or numbness. SMOKING CESSATION INFORMATION: ??? [place] QUITLINE: ??? [place] QUITLINE: ??? [email or web address] If you smoke, stop now! Smoking may impede healing. MAKE SURE YOU: ??? Understand these instructions. ??? Will seek medical care if you are feeling poor, or get worse. ??? Will call the office with any questions or concerns at: [phone]. The above information has been presented or [...] tablet by mouth daily. Narcan 4 mg/actuation [place], Non-Aerosol ADMINISTER 1 SYRINGE FULL IN NOSTRIL [...] needed. 08/26/2016 fluticasone propionate (FLONASE) 50 mcg/actuation [place], Suspension 2 sprays by Each Nare route [...] Abdalla MD - 06/20/2020 8:00 AM EST [facility] [place] [address] Patient Name: Shiloh Anderson : [id number] MR#: [id number] Case Date: 06/20/2020 Surgeon: Surgeon(s) and Role: * Marion Abdalla MD - Primary * Fede Dunn PA - Physician Clinical Director Preoperative diagnosis: Right Carpal Tunnel Syndrome Postoperative [...] nerve until full decompression was obtained. A [place] was used distally and proximally to confirm [...] the duration of the operative session. The executive marketing assistant adequately prepped the operative site and maintained the best possible exposure of anatomy incident to the procedure. Marion Abdalla MD 06/20/2020 documented in this encounter Plan of Treatment Upcoming Encounters Date Type Department Care Team (Late st Contact Info) Description 03/12/2024 1:00 PM EDT Office Visit Hematology/Oncology at [address] [phone] Sony Lyons MD [facility] [place] [address] Dottie Lira APRN [address] [place] [address] DR HEMATOLOGY [place] [address] 03/19/2024 2:30 PM EDT Office Visit Dermatology at [place] [address] [place] [address] Sam Johns MD [address], [place] [address] documented as of this encounter Procedures Procedure Name Priority Date/Time Associated Diagnosis Comments Revise Median N/Carpal Tunnel Surg (37918) Yes 06/20/2020 7:26 AM EST Right Carpal Tunnel Syndrome documented in this encounter Visit Diagnoses Not [...] 6:56 AM EST 1,000 mLs 50 mL/hr lidocaine (pf) (Xylocaine) (10 mg/mL) 1% injection ONCE PRN, Starting on Fri06/20/20 at 0735, Until Fri06/20/20 at 1015, Intra-Operative (Intra-Procedure), Routine Given 06/20/2020 7:35 AM EST 10 mLs 19- Surgical Site [...] Day of Surgery (Day of Procedure) 0656 (New Bag - Prov ider: Shanti Morrissey RN) PRN Medication Order 06/18/2020 06/19/2020 06/20/2020 lidocaine (pf) (Xylocaine) (10 mg/mL) 1% injection (CANCELED) ONCE PRN, Starting on Fri06/20/20 at 0735, Until Fri06/20/20 at 1015, Intra-Operative (Intra-Procedure), Routine 0735 (Given - Provid er: Marion Abdalla MD) documented in this encounter Care Teams Journeyman Patternmaker Relationship Specialty Start Date End Date Wilma Nance MD [address] [place] [address] PCP - General Family Medicine 09/18/17 documented as of this encounter
--- OUTSIDE RECORDS SUMMARY | 2024-03-10 01:28 | XMS_ITS | Encounter Summary ---
Author Organization [place] [address] Care Team Providers Care Slp Teacher Name Role Phone Wilma Nance MD Primary Care Provider [phone] Encounter Details Date Type Department Care Team (Late Contact Info) Description 06/23/2018 Interpretation Only [facility] [address] [place] [phone] Risa Samano [address] [place] [address] Social History Tobacco Use Types Packs/Day Years [...] PM EDT Office Visit Hematology/Oncology at [address] [phone] Sony Lyons MD [facility] [place] [address] Dottie Lira APRN [address] [place] [address] DR HEMATOLOGY AND ONCOLOGY [place], [place] [id number] 03/19/2024 2:30 PM EDT Office Visit Dermatology at [place] [address] [place] [phone] Sam Johns MD [address], [place] [address] documented as of this encounter Procedures Procedure Name Priority Date/Time Associated Diagnosis Comments XR LUMBAR SPINE AP FLEXION AND EXTENSION ONLY Routine 06/23/2018 11:32 AM EST documented in this encounter Results * XR Lumbar Spine AP & Flexion & Extension Only (06/23/2018 11:32 AM EST) Anatomical Region Laterality Modality L-spine N/A Radiographic Mishel ging 06/23/2018 11:3 2 AM EST Impressions 06/23/2018 12:04 PM EST 1. ??Recent L4-S1 dorsal fusion as described. 2. ??Grade 1 spondylolisthesis at several levels as described, without change in alignment between flexion and extension. Narrative 06/23/2018 12:04 PM EST EXAMINATION: SPINE LUMBAR FLEX/EXT (2-3VWS) CLINICAL HISTORY: S/P LUMBAR FUSION TECHNIQUE: 3 views of the lumbar spine. ??Lateral views in neutral, flexion, and extension. COMPARISON: MR lumbar spine 09/25/2010. Fluoroscopic intraoperative spot views 05/18/2018. FINDINGS: There is fusion hardware with pedicle screws and fusion rods from L4 through S1. A prosthetic intervertebral disc is also noted L4-5. No evidence of hardware complication. Stable anterolisthesis at L4-5 that measures roughly 4 mm. Stable 10 mm anterolisthesis at L5-S1. Stable 5 mm retrolisthesis at L3-4. Stable 2-3 mm retrolisthesis at L1-2. There is no change in alignment between flexion and extension. The vertebral bodies are maintained in height. Degenerative disc changes are again noted most prominent at L1-2 through L3-4. Procedure Note Kim Jefferson MD - 06/23/2018 EXAMINATION: SPINE LUMBAR FLEX/EXT (2-3VWS) CLINICAL HISTORY: S/P LUMBAR FUSION TECHNIQUE: 3 views of the lumbar spine. Lateral views in neutral, flexion, andextension. COMPARISON: MR lumbar spine 09/25/2010. Fluoroscopic intraoperative spot views05/18/2018. FINDINGS: There is fusion hardware with pedicle screws and fusion rods from [id number] S1. A prosthetic intervertebral disc is also noted L4-5. No evidence ofhardware complication. Stable anterolisthesis at L4-5 that measures roughly 4 mm. Stable 10 mm anterolisthesis at L5-S1. Stable 5 mm retrolisthesis at L3-4. Stable 2-3 mm retrolisthesis at L1-2. There is no change in alignment between flexion and extension. The vertebral bodies are maintained in height. Degenerative disc changesare again noted most prominent at L1-2 through L3-4. IMPRESSION 1. Recent L4-S1 dorsal fusion as described. 2. Grade 1 spondylolisthesis at several levels as described, withoutchange in alignment between flexion and extension. Risa Samano IMG DX ORDERABLES documented in this encounter Visit Diagnoses Not on filedocumented in this encounter Care Teams Slp Teacher Relationship Specialty Start Date End Date Wilma Nance MD [address] [place] [address] PCP - General Family Medicine 09/18/17 documented as of this encounter
--- OUTSIDE RECORDS SUMMARY | 2024-03-10 01:28 | XMS_ITS | Encounter Summary ---
Author Organization [facility] Address [facility] [place] [address] Care Team Providers Care Sales Agent Insurance Name Role Phone Wilma Nance MD Primary Care Provider [phone] Encounter Details Date Type Department Care Team (Late st Contact Info) Description 05/28/2022 External [place] [phone] Provider, Scanning Social History Tobacco Use Types Packs/Day Years [...] 1:00 PM EDT Office Visit Hematology/Oncology at [address] [phone] Sony Lyons MD [facility] [place] [address] Dottie Lira APRN [address] [place] [address] DR HEMATOLOGY AND ONCOLOGY [place], [place] [address] 03/19/2024 2:30 PM EDT Office Visit Dermatology at [address] [place] [address] Sam Johns MD [address], [place] [address] documented as of this encounter Procedures Procedure Name Priority Date/Time Associated Diagnosis Comments SURGICAL PATHOLOGY SCAN Routine 05/28/2022 documented in this encounter Results * Scan Doc: Surgical Pathology (05/28/2022) Soyn Lyons MD MEDIA MGR SCAN EXT O RDR/RSLT documented in this encounter Visit Diagnoses Not on filedocumented in this encounter Care Teams Sales Agent Insurance Relationship Specialty Start Date End Date Wilma Nance MD [address] [place] [address] PCP - General Family Medicine 09/18/17 documented as of this encounter
--- OUTSIDE RECORDS SUMMARY | 2024-03-10 01:28 | XMS_ITS | Encounter Summary ---
Author Organization [facility] [place] [id number] Care Team Providers Care Production Graphic Designer Name Role Phone Wilma Nance MD Primary Care Provider [phone] Encounter Details Date Type Department Care Team (Late st Contact Info) Description 10/19/2022 Telephone Hematology [place] [phone] Walter Wise MD [facility] DR HEMATOLOGY/[place] [address] Social History Tobacco Use Types Packs/Day Years [...] encounter Miscellaneous Notes * Telephone Encounter - Walter Wise MD - 10/19/2022 5:02 PM EDT Heme-Onc Staff I have reviewed the patient's record and, given personal and/or family history of cancer she shouldbe seen by a genetic counselor. This is scheduled for next week. Walter Wise MD mail manager in Hematology-Oncology documented in this encounter Plan of Treatment Upcoming Encounters Date Type Department Care Team (Late st Contact Info) Description 03/12/2024 1:00 PM EDT Office Visit Hematology/Oncology at [address] [phone] Sony Lyons MD [facility] [place] [address] Dottie Lira APRN [address] [place] [address] DR HEMATOLOGY AND ONCOLOGY [place], [place] [address] 03/19/2024 2:30 PM EDT Office Visit Dermatology at [place] [address] [facility] [place] [phone] Sam Johns MD [address], [place] [address] documented as of this encounter Visit Diagnoses Not on filedocumented in this encounter Care Teams Production Graphic Designer Relationship Specialty Start Date End Date Wilma Nance MD [address] [place] [address] PCP - General Family Medicine 09/18/17 documented as of this encounter
--- OUTSIDE RECORDS SUMMARY | 2024-03-10 01:28 | XMS_ITS | Encounter Summary ---
Author Organization [facility] [place] [address] Care Team Providers Care Actuarial Intern Name Role Phone Wilma Nanec MD Primary Care Provider [phone] Encounter Details Date Type Department Care Team (Late Contact Info) Description 09/29/2018 Interpretation Only [address] [place] [phone] Marion Abdalla MD [address] [place] [address] Social History Tobacco Use Types Packs/Day Years [...] PM EDT Office Visit Hematology/Oncology at [address] [phone] Sony Lyons MD [facility] [place] [address] Dottie Lira APRN [address] [place] [address] DR [place] [address] 03/19/2024 2:30 PM EDT Office Visit Dermatology at [place] [address] [facility] [address] [place] [phone] Sam Johns MD [address], [place] [address] documented as of this encounter Procedures Procedure Name Priority Date/Time Associated Diagnosis Comments XR LUMBAR SPINE AP FLEXION AND EXTENSION ONLY Routine 09/29/2018 2:38 PM EST documented in this encounter Results * XR Lumbar Spine AP & Flexion & Extension Only (09/29/2018 2:38 PM EST) Anatomical Region Laterality Modality L-spine N/A Radiographic Mishel ging 09/29/2018 2:38 PM EST Impressions 09/29/2018 3:58 PM EST Increasing anterior spondylolisthesis of L4-5 with unchanged 10 mm of anterior spondylolisthesis of L5-S1 Thank you for letting us participate in the care of this patient. For questions regarding this report, please contact the number below. ? Narrative 09/29/2018 3:58 PM EST EXAMINATION: SPINE LUMBAR FLEX/EXT (2-3VWS) CLINICAL HISTORY: ?? - LOW BACK PAIN, ?? TECHNIQUE: Lateral flexion-extension views of the lumbar spine COMPARISON: 06/23/2018 FINDINGS: Patient is status post L4 S1 posterior sanjuanita and screw fusion. There is an interbody device between L4 on L5. Since prior study the has been a 13 mm anterior spondylitic listhesis of L4 on L5 above the interbody device. The hardware is intact. This degree of spondylolisthesis does not change on flexion and extension. Grade 1 anterior spinal listhesis of L5 on S1 is unchanged from the prior study but does appear to increase minimally on extension. Diffuse sclerosis the posterior facet joints is unchanged. Minimal retrolisthesis of L2 on L3 with significant degenerative disc changes throughout the remainder of the lumbar spine. Procedure Note Elena Barrow MD - 09/29/2018 EXAMINATION: SPINE LUMBAR FLEX/EXT (2-3VWS) CLINICAL HISTORY: - LOW BACK PAIN, TECHNIQUE: Lateral flexion-extension views of the lumbar spine COMPARISON: 06/23/2018 FINDINGS: Patient is status post L4 S1 posterior sanjuanita and screw fusion. There is an interbody device between L4 on L5. Since prior study the has been a 13mm anterior spondylitic listhesis of L4 on L5 above the interbody device.The hardware is intact. This degree of spondylolisthesis does not change onflexion and extension. Grade 1 anterior spinal listhesis of L5 on S1 is unchangedfrom the prior study but does appear to increase minimally on extension.Diffuse sclerosis the posterior facet joints is unchanged. Minimal retrolisthesisof L2 on L3 with significant degenerative disc changes throughout the remainderof the lumbar spine. IMPRESSION Increasing anterior spondylolisthesis of L4-5 with unchanged 10 mm ofanterior spondylolisthesis of L5-S1 Thank you for letting us participate in the care of this patient. Forquestions regarding this report, please contact the number below. Marion Abdalla MD IMG DX ORDERABLES documented in this encounter Visit Diagnoses Not on filedocumented in this encounter Care Teams Actuarial Intern Relationship Specialty Start Date End Date Wilma Nance MD [address] [place] [address] PCP - General Family Medicine 09/18/17 documented as of this encounter
--- OUTSIDE RECORDS SUMMARY | 2024-03-10 01:28 | XMS_ITS | Encounter Summary ---
Author Organization [facility] [place] [address] Care Team Providers Care Advertising Assistant Manager Name Role Phone Wilma Nance MD Primary Care Provider [phone] Encounter Details Date Type Department Care Team (Late Contact Info) Description 07/03/2021 Ancillary Procedure [place] [phone] Wilma Nance MD [address] [place] [phone] Social History Tobacco Use Types Packs/Day Years [...] PM EDT Office Visit Hematology/Oncology at [address] [phone] Sony Lyons MD [facility] [place] [address] Dottie Lira APRN [address] [place] [address] DR HEMATOLOGY AND ONCOLOGY [place], [place] [address] 03/19/2024 2:30 PM EDT Office Visit Dermatology at [place] [address] [place] [phone] Sam Johns MD [address], [place] [address] documented as of this encounter Procedures Procedure Name Priority Date/Time Associated Diagnosis Comments FILM LIBRARY STORAGE ONLY DX SPINE Routine 07/03/2021 12:00 AM EST documented in this encounter Results * Film Library- Storage Only DX Spine (07/03/2021 12:00 AM EST) Narrative RAD - 12/27/2021 3:40 PM EDT This exam is auto-finalizing. It's purpose is for storage only. Wilma Nance MD IMG FILM LIBRARY ORD ERABLES Performing Organization Address City/State/[facility] Co de Phone Number [place], [place] documented in this encounter Visit Diagnoses Not on filedocumented in this encounter Care Teams Advertising Assistant Manager Relationship Specialty Start Date End Date Wilma Nance MD [address] [place] [address] PCP - General Family Medicine 09/18/17 documented as of this encounter
--- OUTSIDE RECORDS SUMMARY | 2024-03-10 01:28 | XMS_ITS | Encounter Summary ---
[place] [address] Care Team Providers Care Management Trainee Name Role Phone Wilma Nance MD Primary Care Provider [phone] Reason for Visit * Reason Comments Skin Check Encounter Details Date Type Department Care Team (Late st Contact Info) Description 02/01/2021 3:45 PM EDT Office Visit Dermatology at [address] [phone] Sam Johns MD [address] [place] [address], [facility] [place], [place] [phone] History of basal cell carcinoma; [place] (actinic [...] Progress Notes * Sam Johns MD - 02/01/2021 3:45 PM EDT Problem: 1. ??Skin checkup, 1 year 2. 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 She continues to try to maintain her physicalabilities and enjoy the [id number]-[id number]. She continues her love for horse riding which is being limited by her weight gain. Physical examination reveals a pleasant 75-year-old woman with blue eyes and very fair skin with moderate to severe solar damage of the forehead upper chest and arms. She has no evidence of recurrentBCC on the upper right supra brow. She has benign examination of the face the neck the chest the back the hands the arm deforms the thighs and the calves. She has several actinic keratoses across the forehead on the lateral cheeks. Assessment and plan: Actinic keratosis of [address]2 x2 applied each of 4 sites 2. Continue to try and follow sun avoidance precautions. History of BCCA right supra brow August 2015 1. No evidence recurrence 2. Patient assured Benign skin examination 1. Patient reassured about her benign skin examination 2. Return to clinic in a year for repeat check CC: Wilma Wilson MD documented in this encounter Plan of Treatment Upcoming Encounters Date Type Department Care Team (Late st Contact Info) Description 03/12/2024 1:00 PM EDT Office Visit Hematology/Oncology at [address] [phone] Sony Lyons MD [facility] [place] [address] Dottie Lira APRN [address] [place] [address] [place] [address] 03/19/2024 2:30 PM EDT Office Visit Dermatology at [place] [address] [facility] [place] [address] Sam Johns MD [address] [facility], [place] [address] documented as of this encounter Visit Diagnoses Diagnosis History of basal cell carcinoma Personal history of other malignant neoplasm of skin AK (actinic keratosis) Actinic keratosis documented in this encounter Care Teams Management Trainee Relationship Specialty Start Date End Date Wilma Nance MD [address] [place] [address] PCP - General Family Medicine 09/18/17 documented as of this encounter
--- OUTSIDE RECORDS SUMMARY | 2024-03-10 01:28 | XMS_ITS | Encounter Summary ---
[place] [address] Care Team Providers Care Network Administrator Name Role Phone Wilma Nance MD Primary Care Provider [phone] Encounter Details Date Type Department Care Team (Late st Contact Info) Description 03/30/2021 Telephone Sleep Center at [facility] [address] [place] [address] Serenity Nair APRN [facility] [place] [address] Social History Tobacco Use Types Packs/Day Years [...] Telephone Encounter - Serenity Nair APRN - 03/30/2021 12:20 PM EDT Called [email or web address] to remind her to fax copies of sleep studies to us and provided fax number. SERENITY NAIR APRN documented in this encounter Plan of Treatment Upcoming Encounters Date Type Department Care Team (Late st Contact Info) Description 03/12/2024 1:00 PM EDT Office Visit Hematology/Oncology at [address] [phone] Sony Lyons MD [facility] [place] [address] Dottie Lria APRN [address] [place] [address] DR HEMATOLOGY AND ONCOLOGY [place], [place] [id number] 03/19/2024 2:30 PM EDT Office Visit Dermatology at [place] [address] [place] [phone] Sam Johns MD [address], [place] [address] documented as of this encounter Visit Diagnoses Not on filedocumented in this encounter Care Teams Network Administrator Relationship Specialty Start Date End Date Wilma Nance MD [address] [place] [address] PCP - General Family Medicine 09/18/17 documented as of this encounter
--- OUTSIDE RECORDS SUMMARY | 2024-03-10 01:28 | XMS_ITS | Encounter Summary ---
Author Organization [facility] [place] [address] Care Team Providers Care District Manager In Training Name Role Phone Wilma Nance MD Primary Care Provider [phone] Encounter Details Date Type Department Care Team (Late st Contact Info) Description 05/09/2022 Telephone Cardiology at [address] [phone] Kam Kirk MD [facility] [place] [address] Social History Tobacco Use Types Packs/Day Years [...] encounter Miscellaneous Notes * Telephone Encounter - Kam Kirk MD - 05/09/2022 7:32 PM EDT Images from the original note were not included. [facility] [place] [address] 05/09/2022 Shiloh Anderson Initial Contact Date: 05/09/2022 Initial contact time: 7:32 PM Referring Provider: Dr. Sally Quarles Patient Location: [facility] Past Medical History: Hypertension First-degree AV block with PA interval 270 ms in 2020 Brief HPI: Patient is a 76-year-old female with past medical history of hypertension, first-degree AV block who presented to outside hospital for hemicolectomy for colon cancer. Outside hospital provider tells me patient had a normal pharmacologic nuclear stress test a couple weeks ago for surgical risk strati fication. This was read as normal with an EF 65%. Patient underwent surgery this morning and afterward noted to be in high degree AV block Mobitz type II. Blood pressure on softer side 80-90 systolicthought to be related to volume depletion in the setting of OR. They are going to give some fluids and reassess her hemodynamics. She is mentating and otherwise feeling her normal self. Labs are reported as normal, potassium normal, and not in acute renal failure. She is on atenolol at baseline which was held. No recent tick bites. Cardiology consulted for additional recommendations. Pertinent Diagnostic Findings: Mobitz type II Past cardiac studies: Reported normal pharmacologic nuclear stress test 2 weeks ago Assessment/Recommendations: Patient is a 76-year-old female with past medical history of hypertension, first-degree AV block who presented to outside hospital for hemicolectomy for colon cancer. She was found to be in Mobitz type II and is borderline hemodynamically stable. They are going to attempt fluid resuscitation given her recent or visit and reassess. Patient is asymptomatic and mentating. Recommended if there is no response to fluid resuscitation from a blood pressure standpoint, would be reasonable to start low-dose epi or dopamine (outside provider prefer dopamine as it is readily available). If hemodynamic instability continues, emergent temporary pacing wire would be indicated although it sounds as if this is unable to be done at the facility. The provider will check and if one of the surgeons can do this in emergent fashion if this were indicated. They will keep pads on the patient just in case. Recommended holding atenolol. No tick exposure. We are not excepting any critical care or floor patients tonight and therefore transfer cannot be initiated especially in the setting of recent surgery this to be not indicated. The above recommendations were based on my discussion with the outside hospital provider. I have not personally interviewed or examined this patient. I advised the provider to call the transfer center back with any changes in the patient condition. documented in this encounter Plan of Treatment Upcoming Encounters Date Type Department Care Team (Late st Contact Info) Description 03/12/2024 1:00 PM EDT Office Visit Hematology/Oncology at [address] [phone] Sony Lyons MD [facility] [place] [address] Dottie Lira EARLY CHILDHOOD ASSOCIATE TEACHER [address] [place] [address] DR HEMATOLOGY AND ONCOLOGY [place], [place] [address] 03/19/2024 2:30 PM EDT Office Visit Dermatology at [address] [place] [phone] Sam Johns MD [address] [facility], [place] [address] documented as of this encounter Visit Diagnoses Not on filedocumented in this encounter Care Teams District Manager In Training Relationship Specialty Start Date End Date Wilma Nance MD [address] [place] [address] PCP - General Family Medicine 09/18/17 documented as of this encounter
--- OUTSIDE RECORDS SUMMARY | 2024-03-10 01:28 | XMS_ITS | Encounter Summary ---
Author Organization [facility] [place] [address] Care Team Providers Care Agriculturist Name Role Phone Wilma Nance MD Primary Care Provider [phone] Encounter Details Date Type Department Care Team (Latest Contact Info) Description 05/28/2022 11:36 AM EDT - 05/28/2022 11:59 PM EDT [place] [address] Discharge Disposition: Home Social History Tobacco Use [...] on file documented as of this encounter Medications at Time of Discharge Medication Sig Dispensed Refills Start Date End Date Cane Device .MEDSUPPLY 02/24/2020 OXYGEN-AIR DELIVERY SYSTEMS MISC by NOT APPLICABLE route. 02/15/2021 atenoloL (Tenormin) 25 mg Tablet Take 25 mg by mouth every evening. 01/22/2022 Sodium Fluoride 5000 Plus 1.1 % Cream USE TO BRUSH TEETH FOR 2 MINUTES EVERY DAY AT BEDTIME 10/31/2021 gabapentin (Neurontin) 300 mg Capsule Take 600 mg by mouth 3 times daily. 12/25/2021 morphine CR (Ms Contin) 15 mg Tablet Sustained Release Take 15 mg by mouth 2 times daily. 01/24/2022 losartan (COZAAR) 100 mg Tablet TAKE 1 TABLET BY MOUTH EVERY DAY 03/20/2021 oxybutynin XL (Ditropan-XL) 5 mg Tablet Extended Rel 24 hr TAKE 1 TABLET BY MOUTH DAILY 01/20/2021 albuteroL 90 mcg/actuation HFA Aerosol Inhaler Inhale [...] tablet by mouth daily. Narcan 4 mg/actuation [place], Non-Aerosol ADMINISTER 1 SYRINGE FULL IN NOSTRIL [...] mouth every 4 hours as needed. 08/26/2016 amLODIPine (Norvasc) 5 mg Tablet Take 5 mg by mouth daily. 12/14/2021 07/26/2022 furosemide (Lasix) 20 mg Tablet TAKE 1/2 TABLET BY MOUTH ONCE DAILY NEEDED. CAN INCREASE TO 1 TABLET EVERY MORNING IF NEEDED FOR LEG SWELLING 01/23/2022 07/26/2022 rOPINIRole (Requip) 0.5 mg Tablet Take 0.5 mg by mouth nightly. 09/18/2021 07/26/2022 documented as of this encounter Plan of Treatment Upcoming Encounters Date Type Department Care Team (Late st Contact Info) Description 03/12/2024 1:00 PM EDT Office Visit Hematology/Oncology at [address] [address] Sony Lyons MD [facility] [place] [address] Dottie Lira, PASSENGER COACH DRIVER [address] [place] [address] DR HEMATOLOGY AND [place] [address] 03/19/2024 2:30 PM EDT Office Visit Dermatology at [place] [address] [place] [address] Sam Johns MD [address] [address], [place] [address] documented as of this encounter Procedures Procedure Name Priority Date/Time Associated Diagnosis Comments SURGICAL PATHOLOGY REPORT Routine 05/28/2022 11:41 AM EDT documented in this encounter Results * Surgical Pathology Report (05/28/2022 11:41 AM EDT) Final Diagnosis [id number] ? Location: [facility] The signing pathologist has (i) examined the relevant preparation(s) for the specimen(s) and (ii) rendered or confirmed the diagnosis(es). . ?Surgical Pathology DIAGNOSIS CONSULTATION CASE A - Outside slide(s) labeled [id number], collection date 05/08/2022. 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 B - Outside slide(s) labeled [id number], collection date 04/17/2022. Colon, 60 CMS, Mass, ?? biopsy: Invasive ??moderately differentiated adenocarcinoma. Per submitted outside pathologic report, immunostains (not submitted for review) showed loss of MLH1 and PMS2 and retained expression of MSH2 and MSH6 proteins in tumor cells. Electronically signed by: ?Christiane Yanes MD Verified: ??06/09/2022 14:16 ??Pathologist Performed at: ??-[facility] Dept. of Pathology, [place] [address] Adjunct Physical Education Instructor: Malorie Cole MD, AP, ??CLIA Certificate: [id number] SYNOPTIC A - Outside slide(s) labeled [id number], collection date 05/08/2022. Specimen ? Procedure: ??Transverse colectomy Tumor ? Tumor Site: ??Transverse colon ? Histologic Type: ??Mucinous adenocarcinoma ? Histologic Grade: ??G2, moderately differentiated ? Tumor Size: ??1.8 Centimeters (cm) ? Tumor Extent: ??Invades through muscularis propria into pericolorectal tissue ? Macroscopic Tumor Perforation: ??Not identified ? Lymphovascular Invasion: ??Not identified ? Perineural Invasion: ??Not identified ? Number of Tumor Buds: ??0 per 'hotspot' field ? Type of Polyp in which Invasive Carcinoma Arose: ??None identified ? Treatment Effect: ??No known presurgical therapy Margins ? Margin Status for Invasive Carcinoma: ??All margins negative for invasive ?carcinoma ?Closest Margin(s) to Invasive Carcinoma: ??Proximal; ??Distal; ??Radial ? (circumferential) or mesenteric ? Margin Status for Non-Invasive Tumor: ??All margins negative for high-grade ?dysplasia / intramucosal carcinoma and low-grade dysplasia Regional Lymph Nodes ? Regional Lymph Node Status: ??All regional lymph nodes negative for tumor ? Number of Lymph Nodes Examined: ??13 ? Tumor Deposits: ??Not identified Pathologic Stage Classification (pTNM, AJCC 8th Edition) ? pT Category: ??pT3 ? pN Category: ??pN0 Prior Biopsy (NAPRC Standard 2.1) ? A biopsy was performed and read elsewhere and reviewed: ??[id number] part B Additional Findings ? Additional Findings: ??None identified . SYNOPTIC Best Tumor Blocks for Future Studies ? Tumor Block(s): ??A11, A13 ? Normal Block(s): ??A5, A6 ? CAP eCC 2021 Q1 Release ADDITIONAL STUDIES Whole slide scan: [id number] ([id number] A11-1) [id number] ([id number] A13-1) [id number] B-002 SPECIMEN(S) SUBMITTED CONSULTATION CASE A - 68 slide(s) labeled [id number], collection date 05/08/2022. B - 2 slide(s) labeled [id number], collection date 04/17/2022. [id number] CARBON COPY: [facility] Surgical Pathology Department [facility], [facility], 2nd Floor [address] [place], [place] ??[address] CLINICAL INFORMATION Colon cancer SPECIMEN PROCESSING [facility] ([facility]) pathology slide(s) are reviewed. ??Refer to Diagnosis and Specimen Submitted for specific case information. For the full text of the [facility] report(s) please refer to Non-DH Documentation Pathology in the electronic health record (eDH). 06/09/2022 2:16 PM [facility] Consult Case 05/28/2022 11:4 1 AM EDT 05/28/2022 11:41 AM EDT Consult Case 05/28/2022 11:4 1 AM EDT 05/28/2022 11:41 AM EDT Sony Lyons MD PATHOLOGY/CYTOLOGY [facility] [place] [address] documented in this encounter Visit Diagnoses Not on filedocumented in this encounter Care Teams Agriculturist Relationship Specialty Start Date End Date Wilma Nance MD [address] [place] [address] PCP - General Family Medicine 09/18/17 documented as of this encounter
--- OUTSIDE RECORDS SUMMARY | 2024-03-10 01:28 | XMS_ITS | Encounter Summary ---
[place] [address] Care Team Providers Care Cell Geneticist Name Role Phone Wilma Nance MD Primary Care Provider [phone] Reason for Visit * Reason Comments Annual Exam Encounter Details Date Type Department Care Team (Late st Contact Info) Description 02/05/2022 1:30 PM EDT Office Visit Dermatology at [address] [phone] Sam Johns MD [address] [place] [address], [facility] [place] [address] History of basal cell carcinoma; AK (actinic [...] Progress Notes * Sam Johns MD - 02/05/2022 1:30 PM EDT Problem: 1. ??Skin checkup, 1 year 2. 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 She is here for her yearly skin checkup. She is here today also with her guide dog, a Nepali Delgadillo. She is a mother of 9 children, 2 boys and 7 girls. Physical examination reveals a pleasant 76-year-old woman who has blue eyes and fair skin with moderate to severe solar damage of the chest and arms. There is no evidence of recurrent BCC on the upper right supra brow. She has benign examination of the face and neck the chest the back hands arms forearms thighs and calves. She has +1-2 pitting edema of both lower extremities left worse than right. Assessment plan: Benign skin examination the patient with a history of BCCA right supra brow August 2015 1. Patient reassured his benign skin examination 2. Continue sun avoidance precautions 3. Return to clinic in 1 year Lower extremity edema 1. Patient will bring up this worsening problem with her PCP. We discussed possible causes. 2. Patient is attempting to follow a no added salt diet. She is trying to exercise but that is difficult given her neuropathy and decreased exercise tolerance 3. She is started a pool exercise program 4. Discussed support stockings. I offered Tubigrip stockings, but she defers on that today. CC: Wilma Nance MD documented in this encounter Plan of Treatment Upcoming Encounters Date Type Department Care Team (Late st Contact Info) Description 03/12/2024 1:00 PM EDT Office Visit Hematology/Oncology at [address] [phone] Sony Lyons MD [facility] [place] [address] Dottie Lira HR CLERK [address] [place] [address] DR HEMATOLOGY AND ONCOLOGY [place], [place] [id number] 03/19/2024 2:30 PM EDT Office Visit Dermatology at [address] [place] [phone] Sam Johns MD [address] [facility], [place] [address] documented as of this encounter Visit Diagnoses Diagnosis History of basal cell carcinoma Personal history of other malignant neoplasm of skin AK (actinic keratosis) Actinic keratosis documented in this encounter Care Teams Cell Geneticist Relationship Specialty Start Date End Date Wilma Nance MD [address] [place] [address] PCP - General Family Medicine 09/18/17 documented as of this encounter
--- OUTSIDE RECORDS SUMMARY | 2024-03-10 01:28 | XMS_ITS | Encounter Summary ---
Author Organization [facility] [place] [address] Care Team Providers Care Superintendent House Name Role Phone Wilma Nance MD Primary Care Provider [phone] Encounter Details Date Type Department Care Team (Late st Contact Info) Description 05/18/2018 External Results Laboratory at [facility] [address] [place] [address] Marion Abdalla MD [address] [place] [address] Social History Tobacco Use Types Packs/Day Years [...] PM EDT Office Visit Hematology/Oncology at [address] [phone] Sony Lyons MD [facility] [place] [address] Dottie Lira APRN [address] [place] [address] DR HEMATOLOGY [place] [address] 03/19/2024 2:30 PM EDT Office Visit Dermatology at [place] [address] [place] [phone] Sam Johns MD [address] [facility] [address], [place] [address] documented as of this encounter Procedures Procedure Name Priority Date/Time Associated Diagnosis Comments HEMOGRAM Routine 05/18/2018 11:20 AM EDT documented in this encounter Results * (ABNORMAL) Hemogram (05/18/2018 11:20 AM EDT) White Blood Cell 7.4(Exter nal Lab) 4.0 - 10.0 10^3/uL [facility] Red Blood Cell 4.09(Exte rnal Lab) 3.93 - 5.22 10^6/uL [facility] Hemoglobin 12.8(Exte rnal Lab) 11.2 - 15.7 g/dL [facility] Hematocrit 40.0(Exte rnal Lab) 34.0 - 45.0 % [facility] Mean Cell Volume 97.8(ExtH ) 79.0 - 94.0 fL [facility] Mean Cell Hemoglobin 31.3(Exte rnal Lab) 26.6 - 32.2 pg [facility] Mean Cell Hemoglobin Concentration 32.0(Exte rnal Lab) 32.0 - 36.5 g/dL [facility] RDW coefficient of variation 13.9(Exte rnal Lab) 10.9 - 14.4 % [facility] RDW Standard Deviation 48(ExtH) 35 - 46 fL [facility] Platelet 203(Exter nal Lab) 145 - 370 10^3/uL [facility] Mean Platelet Volume 9.9(Exter nal Lab) 9.0 - 12.0 fL [facility] Peripheral Smear Review NO(Staffing Consultant al Lab) [facility] 05/18/2018 11:2 0 AM EDT 05/18/2018 11:28 AM EDT Narrative [facility] - 05/18/2018 11:35 AM EDT Outpatient Diag: PRE OP Marion Abdalla MD HEMATOLOGY ORDERABL ES Performing Organization Address City/State/[facility] Co de Phone Number [facility] [address] [place] [address] documented in this encounter Visit Diagnoses Not on filedocumented in this encounter Care Teams Superintendent House Relationship Specialty Start Date End Date Wilma Nance MD [address] [place] [address] PCP - General Family Medicine 09/18/17 documented as of this encounter
--- OUTSIDE RECORDS SUMMARY | 2024-03-10 01:28 | XMS_ITS | Encounter Summary ---
[place] [address] Care Team Providers Care Home Health Attendant Name Role Phone Wilma Nance MD Primary Care Provider [phone] Reason for Visit * Reason Comments Genetic Evaluation * Consultation (Routine) - Closed Specialty Diagnoses / Procedures Referred By Renan villavicencio Referred To Contact Hematology and Oncology Diagnoses Malignant neoplasm of sigmoid colon Sony Lyons MD [facility] [place] [address] [facility] Hem Onc [address] [place] [address] Referral ID Status Reason Start Date Expiration Date V isits Requested Visits Authorized [id number] Closed Consult, Test & Treat 07/26/2022 07/26/2023 1 1 Encounter Details Date Type Department Care Team (Late st Contact Info) Description 12/16/2022 11:30 AM EDT TH Visit (TeleHealth) Hematology [place] [address] Eulalio Garza V [facility] Hematology/[place] [address] Malignant neoplasm of sigmoid colon Social History [...] as of this encounter Progress Notes * Eulalio Garza LGC - 12/16/2022 11:30 AM EDT Shiloh Anderson was seen by WALTER Reynolds in consultation at the request of Sony Lyons to advise regarding possible heritable predisposition to cancer. I spent 30 minutes of this video telehealth encounter with the patient gathering medical and familyhistory and discussing the likelihood of a genetic predisposition to cancer and the option of genetic testing. Reason for referral/Chief complaint Personal history of colon cancer. Medical history Cancer hx and treatment: Shiloh is a 77yo female who was recently diagnosed with colon cancer. She underwent a screening colonoscopy by Dr. Carrillo on 04/17/22. An ulcerated mass was seen at 60 cm and biopsied. The pathology showed Invasive moderately differentiated adenocarcinoma with loss of staining for MLH1 and PMS2. MLH1 methylation testing was not performed. Staging CT c/a/p showed no evidence of metastatic disease and the CEA was 2.8. ?? On 05/08/22 she underwent a laparoscopic left hemicolectomy. Pathology showed moderately differentiated mucinous adenocarcinoma, pT3, N0 (0/13 LNs). The margins of resection were negative. There was no LVI or PNI. Tumor budding score was 0. Family History of Cancer Problem Relation Age of Onset ??? Esophageal Cancer Brother ??? Thyroid Cancer Daughter 47 ??? Melanoma Daughter 50 ??? Esophageal Cancer Maternal Aunt ??? Esophageal Cancer Maternal Uncle ??? Lung Cancer Maternal Uncle ??? Lung Cancer Maternal Uncle ??? Cancer Maternal Cousin unknown primary, in her 30s Maternal ethnic background is Irish, Armenian, Lao. There is the possibility of Ashkenazi Church ancestry per patient. Paternal ethnic background is Nigerian. Genetic risk assessment Based on personal and/or family history, the likelihood that Shiloh would be found to have a mutation in a cancer predisposition gene is high enough to offer the option of genetic testing. We discussed that while Shiloh's colon cancer diagnosis at age 77 is not itself highly concerning for Casey syndrome, her abnormal MMR IHC showing loss of staining for MLH1/PMS2 may warrant germline genetic testing given that MLH1 methylation testing does not appear to have been performed by [facility]. Panel genetic testing for an inherited predisposition to cancer, including colorectal cancer, was discussed. The risks, benefits and limitations of panel genetic testing were reviewed, specifically ahigh rate of identifying a variant of uncertain significance, lack of knowledge of cancer risk for newly identified, moderate risk genes included in the panel and lack of effective screening, as wellas cancer risk for other cancers not observed in the family. We reviewed dominant inheritance, meaning that if a mutation is detected there is a 50% chance for Shiloh's children and siblings to have also inherited the same gene alteration. Shiloh states that she is interested in learning about hereditary cancer risks and she feels that her children would like this information from her as well. She opted for testing with [employer] CancerNext-Expanded Panel, a next generation sequencing panel that simultaneously analyzes 77 genes, including Casey syndrome (MLH1, MSH2, MSH6, PMS2, and EPCAM) that contribute to increased risk for cancer. Shiloh was verbally consented and will be sent consent forms via [employer] to review, sign, and return. Orders for the saliva kit will be placed after signed consents are received. [facility] will send a saliva collection kit with prepaid return envelope directly to Shiloh's home to obtain a sample. Instructions for sample collection and return are provided within the kit. We reviewed [employer]'s billing policy. Shiloh will be notified by text and/or email once Ko[employer] completes their benefits investigation if her estimated out of pocket cost is over $100. At that time, if Shiloh is concerned about the estimated test cost she will have the option to contact [facility] directly and either apply for [facility]'s patient assistance program to try and reduce cost of testing based onincome information, cancel testing, or switch to a self-pay option of $250. If Shiloh does not respond to [employer], testing will be billed to her insurance as the default option. Testing will take up to 3 weeks from when the lab receives the sample. Shiloh will be contacted via telephone once her test results become available. If positive, we will offer a follow-up appointment. At that time, we will discuss with Shiloh the implications that this test result may have for her, as well as her family members. We will also provide Shiloh with screening guidelines for cancerprevention and early detection, as well as answer any questions she may have. documented in this encounter Plan of Treatment Upcoming Encounters Date Type Department Care Team (Late st Contact Info) Description 03/12/2024 1:00 PM EDT Office Visit Hematology/Oncology at [address] [phone] Sony Lyons MD [facility] [place] [address] Dottie Lira APRN [address] [place] [address] DR HEMATOLOGY [place] [address] 03/19/2024 2:30 PM EDT Office Visit Dermatology at [place] [address] [facility] [place] [phone] Sam Johns MD [address] [facility] [place] [address] Scheduled Referrals Name Type Priority Associated Diagnoses Orde r Schedule Referral to Familial Cancer Outpatient Referral Routine Malignant neoplasm of sigmoid colon Ordered: 07/26/2022 documented as of this encounter Visit Diagnoses Diagnosis Malignant neoplasm of sigmoid colon documented in this encounter Care Teams Home Health Attendant Relationship Specialty Start Date End Date Wilma Nance MD [address] [place] [address] PCP - General Family Medicine 09/18/17 documented as of this encounter
--- OUTSIDE RECORDS SUMMARY | 2024-03-10 01:28 | XMS_ITS | Encounter Summary ---
Author Organization [facility] [place] [address] Care Team Providers Care Poultice Machine Operator Name Role Phone Wilma Nance MD Primary Care Provider [phone] Reason for Visit * Auth/Cert Specialty Diagnoses / Procedures Referred By Contac t Referred To Contact Diagnoses CARPAL TUNNEL SYNDROME Procedures PRO REVISE MEDIAN N/CARPAL TUNNEL SURG MEDIAN NERVE DECOMPRESSION (CARPAL TUNNEL RELEASE) (WRVU 4.97) Referral ID Status Reason Start Date Expiration Date Visits Re quested Visits Authorized [id number] 1 1 Encounter Details Date Type Department Care Team (Latest Contact Info) Description 05/29/2020 6:36 AM EST - 05/29/2020 8:50 AM EST Hospital Encounter Post Acute Care Unit at [facility] [address] [facility] [place] [address] Marion Abdalla MD [address] [place] [address] Carpal tunnel syndrome on left Discharge Disposition: Home Social History Tobacco Use [...] another scheduled follow-up appointment awith a Physician???s Donor Floor Technician 4-6 weeksfrom the date of surgery. ??? [...] to stop taking it. ??? Only take cehk-ksj-edhnasm or prescription medicine for pain, discomfort or [...] weakness or numbness. SMOKING CESSATION INFORMATION: ??? [place] QUITLINE: ??? [place] QUITLINE: ??? www.[employer] If you smoke, stop now! Smoking may impede healing. MAKE SURE YOU: ??? Understand these instructions. ??? Will seek medical care if you are feeling poor, or get worse. ??? Will call the office with any questions or concerns at: [phone]. The above information has been presented or [...] tablet by mouth daily. Narcan 4 mg/actuation [place], Non-Aerosol ADMINISTER 1 SYRINGE FULL IN NOSTRIL [...] Abdalla MD - 05/29/2020 7:55 AM EST [facility] [place] [address] Patient Name: Shiloh Anderson : [id number] MR#: [id number] Case Date: 05/29/2020 Surgeon: Surgeon(s) and Role: [...] nerve until full decompression was obtained. A [place] was used distally and proximally to confirm [...] PM EDT Office Visit Hematology/Oncology at [address] [phone] Sony Lyons MD [facility] [place] [address] Dottie Lira APRN [address] [place] [address] [place] [address] 03/19/2024 2:30 PM EDT Office Visit Dermatology at [address] [place] [phone] Sam Johns MD [address] [facility] [address], ANABEL [place] [address] documented as of this encounter Procedures Procedure Name Priority Date/Time Associated Diagnosis Comments Revise Median N/Carpal Tunnel Surg (48562) 05/29/2020 7:25 AM EST CARPAL TUNNEL SYNDROME documented in this encounter Visit Diagnoses Diagnosis Carpal tunnel syndrome on left Carpal tunnel syndrome documented in this encounter Active and Recently [...] MD) documented in this encounter Care Teams Poultice Machine Operator Relationship Specialty Start Date End Date Wilma Nance MD [address] [place] [address] PCP - General Family Medicine 09/18/17 documented as of this encounter
--- OUTSIDE RECORDS SUMMARY | 2024-03-10 01:28 | XMS_ITS | Encounter Summary ---
[place] [address] Care Team Providers Care Electric Refrigerator Servicer Name Role Phone Wilma Nance MD Primary Care Provider [phone] Reason for Referral * Consultation (Routine) - Closed Specialty Diagnoses / Procedures Referred By Contac t Referred To Contact Hematology and Oncology Diagnoses Malignant neoplasm of sigmoid colon Sony Lyons MD [facility] [place] [address] [facility] Hem Onc [address] [place] [phone] Referral ID Status Reason Start Date Expiration Date V isits Requested Visits Authorized [id number] Closed Consult, Test & Treat 07/26/2022 07/26/2023 1 1 Reason for Visit * Consultation (ARPITA) - Closed Specialty Diagnoses / Procedures Referred By Contac t Referred To Contact Hematology and Oncology Diagnoses Malignant neoplasm of colon, unspecified 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 Procedures CONSULTATION Ghislaine Carrillo MD [address] [place] [address] [facility] Hem Onc [address] [place] [phone] Referral ID Status Reason Start Date Expiration Date Visits Re quested Visits Authorized [id number] Closed 05/24/2022 05/24/2023 1 1 Encounter Details Date Type Department Care Team (Late st Contact Info) Description 07/26/2022 3:00 PM EST Office Visit Hematology/Oncology at [address] [phone] Sony Lyons MD [facility] [place] [address] Malignant neoplasm of sigmoid colon Social History Tobacco Use Types Packs/Day Years Used Date Smoking Tobacco: Every Day Cigarettes 1 15 Smokeless Tobacco: Never Tobacco Cessation:Ready to Q uit: Not Asked; Counseling Given: Not Answered Comments:Restarted trying to stop now Alcohol Use [...] Taken Comments Blood Pressure - - Pulse 70 07/26/2022 3:09 PM EST Temperature 36.3 ??C (97.3 ??F) 07/26/2022 3:09 PM ES T Respiratory Rate 18 07/26/2022 3:09 PM EST Oxygen Saturation 100% 07/26/2022 3:09 PM EST Inhaled Oxygen Concentration - - Weight 109.8 kg (242 lb) 07/26/2022 3:09 PM EST Height 157.5 cm (5' 2.01) 07/26/2022 3:09 PM ES T Body Mass Index 44.25 07/26/2022 3:09 PM EST documented in this encounter Progress Notes * Sony Lyons MD - 07/26/2022 3:00 PM EST Subjective Patient ID: Shiloh Anderson is 76 y.o. Problem List: 1. Colon cancer, transverse colon, pT3, N0, dMMR A. Screening Colonoscopy 04/17/22 (to cecum) - ulcerated mass at 60 cm, biopsied; manzo diverticulosis Path - 04/17/2022. Colon, 60 CMS, Mass, ?? biopsy: [...] left hemicolectomy (Dr. 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 Closest Margin(s) to Invasive Carcinoma: ??Proximal; ??Distal; ??Radial (circumferential) or mesenteric ?Margin Status for Non-Invasive Tumor: ??All margins negative for high-grade dysplasia/ intramucosal carcinoma and low-grade dysplasia Regional Lymph Nodes ?Regional Lymph Node Status: ??All regional lymph nodes negative for tumor ?Number of Lymph Nodes Examined: ??13 ?Tumor Deposits: ??Not identified Pathologic Stage Classification (pTNM, AJCC 8th Edition) ?pT Category: ??pT3 ?pN Category: ??pN0 Prior Biopsy ([facility] Standard 2.1) ?A biopsy was performed and read elsewhere and reviewed: ??[id number] part B Additional Findings ?Additional Findings: ??None identified 2. History of basal cell carcinoma [...] herself in clinic today. She is doing fair. She has recovered well from the surgery but has a number of chronic issues. She has long standing low back pain for which she is on a fentanyl patch and immediate release morphine. Her QOL has been better on the fentanyl patch as this allows herto be up doing more. 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 This is painful and extends to just above her knee. She is followed Dr. Abdalla in [place]. Her incision is well healed. Her bowels are better than they were prior to the surgery. She goes 1-2 times per day. She has felt less fatigued as well. Her appetite is good. She has lost 30-40#, intentionally. Soc Hx: Lives in [place], [place] Tob - Current (quits and restarts frequently) - she plans to try quitting again with the help of nicotine replacement and counseling. 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 I willmake a referral to the Familial Cancer program for discussion. In terms of f/u here, we will plan to see her in 4 months or so and will plan a CT next fall, abouta year from the last one. * Brunilda Dockery RN - 07/26/2022 3:[address] [facility] Patient Medical Oncology Note SOCIAL ASSESSMENT: See [facility] social assessment information entered. 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 Patient/family instructed to avoid independent ambulation. Use wheelchair and ask for assistance of staff while in the clinic. ADL [ X ] no limits [ ] needs dressing assistance [ ] needs meal assistance Assistive device:[ ]none [ X ]cane [ ]walker [ ]wheelchair [ ]other: explain PAIN ASSESSMENT: [ 3 ] out of 10 Location: Description: [ X ] Dull [ ] Sharp [ ] Burning [ ] Throbbing [ ] Radiating [ X ] Continuous [ ] Intermittent Aggravating Factors: [ X ] Movement [ ] Position [ ] Immobility [ ] Other Alleviating Factors: [ X ] Medication [ ] Positioning [ ] Other Current Pain Management Plan: [ X ] Satisfied [ ] Not satisfied LEARNING STYLE: Learning Needs Assessment up to date (yearly) [ ] TEACHING: __ NCI ???Chemotherapy and You?? and folder given __ Specific chemotherapy literature provided and reviewed with patient VASCULAR ACCESS ASSESSMENT: getting chemo? [ ]yes [ X ]no Need port? [ ] yes [ X ] no documented in this encounter Plan of Treatment Upcoming Encounters Date Type Department Care Team (Late st Contact Info) Description 03/12/2024 1:00 PM EDT Office Visit Hematology/Oncology at [address] [phone] Sony Lyons MD [facility] [place] [address] Dottie Lira APRN [address] [place] [address] DR HEMATOLOGY AND ONCOLOGY [place], [place] [address] 03/19/2024 2:30 PM EDT Office Visit Dermatology at [address] [phone] Sam Johns MD [address] [facility] [place] [address] Scheduled Referrals Name Type Priority Associated Diagnoses Orde r Schedule Referral to Familial Cancer Outpatient Referral Routine Malignant neoplasm of sigmoid colon Ordered: 07/26/2022 documented as of this encounter Visit Diagnoses Diagnosis Malignant neoplasm of sigmoid colon documented in this encounter Care Teams Electric Refrigerator Servicer Relationship Specialty Start Date End Date Wilma Nance MD [address] [place] [address] PCP - General Family Medicine 09/18/17 documented as of this encounter
--- OUTSIDE RECORDS SUMMARY | 2024-03-10 01:28 | XMS_ITS | Encounter Summary ---
Author Organization [facility] [place] [address] Care Team Providers Care Talent Sourcing Specialist Name Role Phone Wilma Nance MD Primary Care Provider [phone] Encounter Details Date Type Department Care Team (Late Contact Info) Description 05/18/2018 Interpretation Only [address] [place] [phone] Marion Abdalla MD [address] [place] [address] Social History Tobacco Use Types Packs/Day Years [...] PM EDT Office Visit Hematology/Oncology at [address] [phone] Sony Lyons MD [facility] [place] [address] Dottie Lira APRN [address] [place] [address] DR HEMATOLOGY [place] [address] 03/19/2024 2:30 PM EDT Office Visit Dermatology at [place] [address] [facility] [address] [place] [phone] Sam Johns MD [address] [facility] [address] [address], [place] [address] documented as of this encounter Procedures Procedure Name Priority Date/Time Associated Diagnosis Comments XR FLUORO MORE THAN ONE HOUR Routine 05/18/2018 11:45 AM EDT documented in this encounter Results * XR FLUORO MORE THAN ONE HOUR (05/18/2018 11:45 AM EDT) Anatomical Region Laterality Modality Other 05/18/2018 11:4 5 AM EDT Impressions 05/20/2018 1:55 PM EDT C-arm fluoroscopy used for intraoperative guidance. Fluoroscopy time: 9.0 seconds Dose: 7.81 mGy Narrative 05/20/2018 1:55 PM EDT EXAMINATION: C-ARM (=>1HR) CLINICAL HISTORY: L3-4 4-5 L5-S1 DECOMPRESSION L4-5 L5-S1 SEGMENTED FUSION ??- OR ROOM 2, ?? Intraoperative C-arm used for guidance to identify the L5-S1 disc space with placement of disc spacer Procedure Note Fide Ely MD - 05/20/2018 EXAMINATION: C-ARM (=>1HR) CLINICAL HISTORY: L3-4 4-5 L5-S1 DECOMPRESSION L4-5 L5-S1 SEGMENTED FUSION- OR ROOM 2, Intraoperative C-arm used for guidance to identify the L5-S1 disc spacewith placement of disc spacer IMPRESSION C-arm fluoroscopy used for intraoperative guidance. Fluoroscopy time: 9.0 seconds Dose: 7.81 mGy Marion Abdalla MD PACS IMAGES documented in this encounter Visit Diagnoses Not on filedocumented in this encounter Care Teams Talent Sourcing Specialist Relationship Specialty Start Date End Date Wilma Nance MD [address] [place] [address] PCP - General Family Medicine 09/18/17 documented as of this encounter
--- OUTSIDE RECORDS SUMMARY | 2024-03-10 01:28 | XMS_ITS | Encounter Summary ---
Author Organization [facility] [place] [address] Care Team Providers Care Post Adoption Coordinator Name Role Phone Wilma Nance MD Primary Care Provider [phone] Encounter Details Date Type Department Care Team (Late Contact Info) Description 04/29/2022 Ancillary Procedure [place] [phone] Wilma Nance MD [address] [place] [phone] Social History Tobacco Use Types Packs/Day Years [...] PM EDT Office Visit Hematology/Oncology at [address] [phone] Sony Lyons MD [facility] [place] [address] Dottie Lira APRN [address] [place] [address] DR HEMATOLOGY AND ONCOLOGY [place], [place] [address] 03/19/2024 2:30 PM EDT Office Visit Dermatology at [place] [address] [facility] [address] [place] [phone] Sam Johns MD [address] [facility] [address], [place] [address] documented as of this encounter Procedures Procedure Name Priority Date/Time Associated Diagnosis Comments FILM LIBRARY STORAGE ONLY CT CHEST ABDOMEN PELVIS Routine 04/29/2022 12:00 AM EDT documented in this encounter Results * Film Library- Storage Only CT Chest Abdomen Pelvis (04/29/2022 12:00 AM EDT) Narrative [facility] - 06/21/2022 2:23 PM EST This exam is auto-finalizing. It's purpose is for storage only. Wilma Nance MD IMG FILM LIBRARY ORD ERABLES Performing Organization Address City/State/[facility] Co de Phone Number [place], [place] documented in this encounter Visit Diagnoses Not on filedocumented in this encounter Care Teams Post Adoption Coordinator Relationship Specialty Start Date End Date Wilma Nance MD [address] [place] [address] PCP - General Family Medicine 09/18/17 documented as of this encounter
--- OUTSIDE RECORDS SUMMARY | 2024-03-10 01:28 | XMS_ITS | Encounter Summary ---
Author Organization [facility] Address [facility] [place] [address] Care Team Providers Care Wire Wrapper Machine Operator Name Role Phone Wilma Nance MD Primary Care Provider [phone] Encounter Details Date Type Department Care Team (Latest Contact Info) Description 07/26/2022 Travel Social History Tobacco Use Types Packs/Day [...] PM EDT Office Visit Hematology/Oncology at [address] [phone] Sony Lyons MD [facility] [place] [address] Dottie Lira APRN [address] [place] [address] DR HEMATOLOGY AND ONCOLOGY [place], [place] [address] 03/19/2024 2:30 PM EDT Office Visit Dermatology at [address] [place] [phone] Sam Johns MD [address] [facility] [address] [place] [address] documented as of this encounter Visit Diagnoses Not on filedocumented in this encounter Care Teams Wire Wrapper Machine Operator Relationship Specialty Start Date End Date Wilma Nance MD [address] [place] [address] PCP - General Family Medicine 09/18/17 documented as of this encounter
--- OUTSIDE RECORDS SUMMARY | 2024-03-10 01:28 | XMS_ITS | Encounter Summary ---
[place] [address] Care Team Providers Care Boiler Installer Name Role Phone Wilma Nance MD Primary Care Provider [phone] Encounter Details Date Type Department Care Team (Latest Contact Info) Description 05/18/2019 1:00 PM EDT Ancillary Procedure [facility] at [address] [address] Marion Abdalla MD [address] [place] [id number] S/P lumbar fusion Social History Tobacco Use Types Packs/Day Years [...] PM EDT Office Visit Hematology/Oncology at [address] [address] Sony Lyons MD [facility] [place] [address] Dottie Lira APRN [address] [place] [address] DR [place] [address] 03/19/2024 2:30 PM EDT Office Visit Dermatology at [place] [address] [place] [address] Sam Johns MD [address], [place] [address] documented as of this encounter Procedures Procedure Name Priority Date/Time Associated Diagnosis Comments XR LUMBAR SPINE 2 OR 3 VIEWS Routine 05/18/2019 1:26 PM EDT S/P lumbar fusion documented in this encounter Results * XR Lumbar Spine 2 Or 3 Views (Generic) (05/18/2019 1:26 PM EDT) Anatomical Region Laterality Modality L-spine N/A Digital Radiogra phy Impressions 05/18/2019 2:54 PM EDT No change in L4 S1 fusion Thank you for letting us participate in the care of this patient. For questions regarding this report, please contact the number below. ? Narrative 05/18/2019 2:54 PM EDT EXAMINATION: XR LUMBAR SPINE 2 OR 3 VIEWS (GENERIC) CLINICAL HISTORY: s/p lumbar fusion TECHNIQUE: 3 views of the lumbar spine COMPARISON: 09/29/2018 FINDINGS: The patient is status post L4 S1 spinal fusion. Hardware is intact. The 1.3 cm and a small listhesis of L4-L5 is unchanged as is the position of the interbody device. Diffuse stable moderate severe degenerative changes throughout the remainder of the lumbar spine. Unchanged minimal retrolisthesis L3-L4 . Marked flexion extension is no change in the spinal alignment, however very little patient mobility occurs Procedure Note Elena Barrow MD - 05/18/2019 EXAMINATION: XR LUMBAR SPINE 2 OR 3 VIEWS (GENERIC) CLINICAL HISTORY: s/p lumbar fusion TECHNIQUE: 3 views of the lumbar spine COMPARISON: 09/29/2018 FINDINGS: The patient is status post L4 S1 spinal fusion. Hardware is intact. The1.3 cm and a small listhesis of L4-L5 is unchanged as is the position of theinterbody device. Diffuse stable moderate severe degenerative changes throughoutthe remainder of the lumbar spine. Unchanged minimal retrolisthesis L3-L4 . Marked flexion extension is no change in the spinal alignment, howeververy little patient mobility occurs IMPRESSION No change in L4 S1 fusion Thank you for letting us participate in the care of this patient. Forquestions regarding this report, please contact the number below. Marion Abdalla MD IMG DX ORDERABLES documented in this encounter Visit Diagnoses Diagnosis S/P lumbar fusion Arthrodesis status documented in this encounter Care Teams Boiler Installer Relationship Specialty Start Date End Date Wilma Nance MD [address] [place] [address] PCP - General Family Medicine 09/18/17 documented as of this encounter
--- OUTSIDE RECORDS SUMMARY | 2024-03-10 01:28 | XMS_ITS | Encounter Summary ---
Author Organization [facility] [place] [address] Care Team Providers Care Industrial Commercial Groundskeeper Name Role Phone Mikaela Cristy Awad APRN Primary Care Provider [phone] Encounter Details Date Type Department Care Team (Late Contact Info) Description 01/24/2017 Ancillary Procedure [place] [phone] Wilma Nance MD [address] [place] [phone] Social History Tobacco Use Types Packs/Day Years [...] 1:00 PM EDT Office Visit Hematology/Oncology at [address] [address] Sony Lyons MD [facility] [place] [address] Dottie Lira APRN [address] [place] [address] DR [place] [address] 03/19/2024 2:30 PM EDT Office Visit Dermatology at [place] [address] [place] [phone] Sam Johns MD [address], [place] [address] documented as of this encounter Procedures Procedure Name Priority Date/Time Associated Diagnosis Comments FILM LIBRARY STORAGE ONLY CT ABDOMEN AND PELVIS Routine 01/24/2017 12:00 AM EDT documented in this encounter Results * Film Library- Storage Only CT Abdomen & Pelvis (01/24/2017 12:00 AM EDT) Narrative [facility] - 06/21/2022 2:21 PM EST This exam is auto-finalizing. It's purpose is for storage only. Wilma Nance MD IMG FILM LIBRARY ORD ERABLES [place], [place] documented in this encounter Visit Diagnoses Not on filedocumented in this encounter Care Teams Industrial Commercial Groundskeeper Relationship Specialty Start Date End Date Cristy Al APRN PCP - General 06/19/10 09/17/17 documented as of this encounter
--- OUTSIDE RECORDS SUMMARY | 2024-03-10 01:28 | XMS_ITS | Encounter Summary ---
Author Organization [facility] [place] [address] Care Team Providers Care Air Tank Assembler Name Role Phone Wilma Nance MD Primary Care Provider [phone] Reason for Visit * - Closed Specialty Diagnoses / Procedures Referred By Contac t Referred To Contact Procedures Film Library- Storage Only MR Spine Wilma Nance MD [address] [place] [address] Referral ID Status Reason Start Date Expiration Date Visits Re quested Visits Authorized [id number] Closed 12/29/2020 12/29/2021 1 1 Encounter Details Date Type Department Care Team (Late Contact Info) Description 12/29/2020 4:25 PM EDT Ancillary Procedure [place] [address] Wilma Nance MD [address] [place], [place] [address] Social History Tobacco Use Types Packs/Day Years [...] PM EDT Office Visit Hematology/Oncology at [address] [place] [phone] Sony Lyons MD [facility] [place] [place] [address] Dottie Lira APRN [address] [place] [address] DR HEMATOLOGY AND ONCOLOGY [place], [place] [id number] 03/19/2024 2:30 PM EDT Office Visit Dermatology at [place] [address] [place] [phone] Sam Johns MD [address], [place] [address] documented as of this encounter Procedures Procedure Name Priority Date/Time Associated Diagnosis Comments FILM LIBRARY STORAGE ONLY MR SPINE Routine 12/29/2020 4:20 PM EDT documented in this encounter Results * Film Library- Storage Only MR Spine (12/29/2020 4:20 PM EDT) Narrative [facility] - 12/29/2020 4:20 PM EDT This exam is auto-finalizing. It's purpose is for storage only. Wilma Nance MD G FILM LIBRARY ORD ERABLES [place], [place] documented in this encounter Visit Diagnoses Not on filedocumented in this encounter Care Teams Air Tank Assembler Relationship Specialty Start Date End Date Wilma Nance MD [address] [place], [place] [address] PCP - General Family Medicine 09/18/17 documented as of this encounter
--- OUTSIDE RECORDS SUMMARY | 2024-03-10 01:28 | XMS_ITS | Encounter Summary ---
[place] [address] Care Team Providers Care General Office Clerk Name Role Phone Wilma Nance MD Primary Care Provider [phone] Reason for Referral * Consultation (Routine) - Closed Specialty Diagnoses / Procedures Referred By Contac t Referred To Contact [facility] Diagnoses Lumbar postlaminectomy syndrome Other chronic pain Pain-Low back pain/MRI & XR 2020 in e-DH/? [facility] Attending Rivera Goldstein DO [address] [place] [address] [place] [address] [facility] [place] [address] Referral ID Status Reason Start Date Expiration Date V isits Requested Visits Authorized [id number] Closed Consult, Test & Treat PCP Updated and/or Approved 10/28/2022 10/28/2023 1 1 Encounter Details Date Type Department Care Team (Latest Contact Info) Description 10/28/2022 Transcribe Orders eDH Incoming Referrals [phone] Rivera Goldstein DO [address] [place] [phone] Lumbar postlaminectomy syndrome; Other chronic pain Social History Tobacco Use Types Packs/Day Years [...] PM EDT Office Visit Hematology/Oncology at [address] [place] [address] Sony Lyons MD [facility] [place] [address] Dottie Lira APRN [address] [place] [address] [place] [address] 03/19/2024 2:30 PM EDT Office Visit Dermatology at [address] [place] [address] Sam Johns MD [address] [facility], [place] [address] Scheduled Referrals Name Type Priority Associated Diagnoses Orde r Schedule Referral to Pain Management Outpatient Referral Routine Lumbar postlaminectomy syndrome Other chronic pain Ordered: 10/28/2022 documented as of this encounter Visit Diagnoses Diagnosis Lumbar postlaminectomy syndrome Postlaminectomy syndrome, lumbar region Other chronic pain documented in this encounter Care Teams General Office Clerk Relationship Specialty Start Date End Date Wilma Nance MD [address] [place] [address] PCP - General Family Medicine 09/18/17 documented as of this encounter
--- OUTSIDE RECORDS SUMMARY | 2024-03-10 01:28 | XMS_ITS | Encounter Summary ---
Author Organization [facility] [place] [address] Care Team Providers Care Software Support Technician Name Role Phone Wilma Nance MD Primary Care Provider [phone] Encounter Details Date Type Department Care Team (Late Contact Info) Description 05/21/2021 Ancillary Procedure Radiology at [facility] [address] [facility] [place] [phone] Marion Abdalla MD [address] [place] [address] Social History Tobacco Use Types Packs/Day Years [...] PM EDT Office Visit Hematology/Oncology at [address] [phone] Sony Lyons MD [facility] [place] [address] Dottie Lira APRN [address] [place] [address] DR HEMATOLOGY [place] [address] 03/19/2024 2:30 PM EDT Office Visit Dermatology at [place] [address] [place] [address] Sam Johns MD [address], [place] [address] documented as of this encounter Procedures Procedure Name Priority Date/Time Associated Diagnosis Comments FILM LIBRARY STORAGE ONLY DX SPINE Routine 05/21/2021 12:00 AM EDT documented in this encounter Results * Film Library- Storage Only DX Spine (05/21/2021 12:00 AM EDT) Narrative [facility] - 05/22/2021 11:09 AM EDT This exam is auto-finalizing. It's purpose is for storage only. Marion Abdalla MD IMG FILM LIBRARY ORDERABLES Performing Organization Address City/State/[facility] Co de Phone Number [place], [place] documented in this encounter Visit Diagnoses Not on filedocumented in this encounter Care Teams Software Support Technician Relationship Specialty Start Date End Date Wilma Nance MD [address] [place] [address] PCP - General Family Medicine 09/18/17 documented as of this encounter
--- OUTSIDE RECORDS SUMMARY | 2024-03-10 01:29 | XMS_ITS | Encounter Summary ---
Author Organization [facility] [place] [id number] Care Team Providers Care Tape Maker Name Role Phone DavisCristy mccollum Delmi VARGAS Primary Care Provider [phone] Encounter Details Date Type Department Care Team (Late st Contact Info) Description 09/09/2012 11:59 PM EST Anesthesia [place] [phone] April Sanchez PA [facility] PRE-[place] [address] Anesthesia Record Procedure Summary Procedure Name Responsible Anesthesiologist Anesthesia Start Time Anesthesia Stop Time surgery with Dr. Rodas Events No events on file. Meds * Agents No agents on file. * Blood No blood administrations on file. Lines, Drains, and Airways No LDAs on file. documented in this encounter Social History Tobacco Use Types Packs/Day Years Used Date Smoking Tobacco: Former Sex and Gender Information Value Date Recorded Sex Assigned at Not on file Gender Identity Not on file Sexual Orientation Not on file documented as of this encounter OR Notes * Anesthesia Preprocedure Evaluation - April Sanchez PA - 09/09/2012 1:47 PM EST Today I evaluated Shiloh Anderson a 67 y.o. female. Patient Active Problem List Diagnoses ??? Breast mass Past Medical History Diagnosis Date ??? Hypertension ??? SUGEY on CPAP ??? Thyroid disease hypothyroid ??? Arthritis Past Surgical History Procedure Date ??? Joint replacement hip and knee ??? Back surgery ??? Shoulder surgery History Substance Use Topics ??? Smoking status: Former Smoker ??? Smokeless tobacco: Not on file ??? Alcohol Use: Not on file No Known Allergies Medications: MAR and/or home medications have been reviewed. Physical Exam: There were no vitals filed for this visit. There is no height or weight on file to calculate BMI. Airway Assessment: Mallampati: II TM distance: >3 FB Neck ROM: full Cardiovascular Assessment: Rhythm: regular Rate: normal Pulmonary Assessment: breath sounds clear to auscultation Dental Assessment: Misc Assessment: Anesthesia Plan: 67 yo female with PMH of obesity, HTN, hypothyroidism, and SUGEY (on CPAP) seen in PAT prior to a breast biopsy at the [facility]. Pt does have SUGEY, but is treated with a CPAP machine, which she uses regularly. She has had multiple surgeries in the past few years (TKR, THR, shoulder arthroplasties, laminectomies) without anesthesia complication. We are obtaining anesthesia records from her most recent surgeries for review. Pt is a proven airway and her SUGEY is well treated. Pt is appropriate for the [facility]. Discussed anesthesia options, risks, and complications (MAC/local vs. GA). Final decision to be made on the DOS. April Sanchez PA-C Pre-Admission Testing Pager [phone] Informed Consent: [facility]. Assessment: documented in this encounter Plan of Treatment Upcoming Encounters Date Type Department Care Team (Late st Contact Info) Description 03/12/2024 1:00 PM EDT Office Visit Hematology/Oncology at [address] [phone] Sony Lyons MD [facility] [place] [address] Dottie Lira APRN [address] [place] [address] DR [place] [address] 03/19/2024 2:30 PM EDT Office Visit Dermatology at [address] [place] [address] Sam Johns MD [address] [place] [address] RD, ANABEL [place] [address] documented as of this encounter Visit Diagnoses Not on filedocumented in this encounter Care Teams Tape Maker Relationship Specialty Start Date End Date Cristy Al APRN PCP - General 06/19/10 09/17/17 documented as of this encounter
--- OUTSIDE RECORDS SUMMARY | 2024-03-10 01:29 | XMS_ITS | Encounter Summary ---
[place] [address] Care Team Providers Care Steam Roller Operator Name Role Phone [place], Cristy Awad APRN Primary Care Provider [phone] Encounter Details Date Type Department Care Team (Latest Contact Info) Description 09/28/2012 6:19 AM EST - 09/28/2012 8:40 AM EST Hospital Encounter Outpatient [place] [address] Nain Rodas MD [facility] [place] [address] Discharge Disposition: Home Social History Tobacco Use [...] Sign Reading Time Taken Comments Blood Pressure 126/63 09/28/2012 8:08 AM EST Pulse 75 09/28/2012 8:08 AM EST Temperature 37 ??C (98.6 ??F) 09/28/2012 8:08 AM EST Respiratory Rate 18 09/28/2012 8:08 AM EST Oxygen Saturation 98% 09/28/2012 8:08 AM EST Inhaled Oxygen Concentration - - Weight 98 kg (216 lb) 09/28/2012 7:09 AM EST Height - - Body Mass Index 38.26 07/15/2012 9:52 AM EST documented in this encounter Discharge Instructions * Discharge Instructions* Kika Son RN - 09/28/2012 8:[address] Rodas Dressing may be removed in 24 hours Ok to shower after dressing removed Ice to site Ibuprofen and tylenol as needed Moderate Sedation You may have received medication before and/or during your procedure, which affects judgement and reaction time. Do not drive, operate machinery, drink alcoholic beverages, or make important decisions for 24 hours. Be careful on stairs, as you may be unsteady on your feet. You may eat a regular diet as tolerated. IV site -- slight redness, or tenderness is normal, you can use a warm compress. If tenderness and redness increases or foul drainage occurs, please contact your M. D. Narcotic pain medications can cause constipation, please ask the surgeons office what they recommend for prevention of this. Some non-pharmaceutical means of constipation prevention include increasing intake of fluids, eating more fruits and vegetables as well as fruit juices. documented in this encounter Medications at Time of Discharge Medication Sig Dispensed Refills Start Date End Date OXYcodone-acetaminophe n (PERCOCET) 5-325 mg per tablet Take 2 tablets by mouth every 8 hours as needed. 08/29/2016 fluticasone (FLONASE) 50 mcg/actuation nasal spray 1 spray by Each Nare route daily. 08/29/2016 morphine (MS CONTIN) 60 mg 12 hr tablet Take 60 mg by mouth daily. Alternating schedule with the 30 mg tablets 08/29/2016 morphine (MS CONTIN) 30 mg 12 hr tablet Take 30 mg by mouth daily. Alternating schedule with the 60 mg tablets 08/29/2016 celecoxib (CELEBREX) 200 mg capsule Take 200 mg by mouth 2 times daily. 08/29/2016 levothyroxine (SYNTHROID) 150 mcg tablet 07/30/2010 08/29/2016 lisinopril (PRINIVIL;ZESTRIL) 10 mg tablet 07/30/2010 08/29/2016 levothyroxine (SYNTHROID) 175 mcg tablet 07/30/2010 08/29/2016 naproxen (NAPROSYN) 500 mg tablet 07/30/2010 08/29/2016 albuterol (ACCUNEB) 1.25 mg/3 mL nebulizer solution 07/30/2010 08/29/2016 documented as of this encounter H&P Notes * Nain Rodas MD - 09/28/2012 7:10 AM EST See H and P in e-DH,unchanged documented in this encounter Miscellaneous Notes * Miscellaneous - Provider, Scanning - 09/28/2012 10:13 PM EST * Miscellaneous - Provider, Scanning - 09/28/2012 12:09 PM EST * Op Note - Nain Rodas MD - 09/28/2012 8:02 AM EST [facility] Operative Note Patient Name: Eli Anderson : [id number] MR#: [id number] Case Date: 09/28/2012 Surgeon: Surgeon(s) and Role: * Nain Rodas MD - Primary Preoperative diagnosis: LEFT BREAST MASS Postoperative diagnosis: LEFT BREAST MASS Procedure(s): EXCISION CYST, FIBROADENOMA, ABBERANT BREAST TISSUE,DUCT LESION,NIPPLE OR AREOLAR LESION (LUMPECTOMY) MAC Estimated Blood Loss: minimal Drains none HPI/Surgical Indications: Surgical Indications: The patient presented to the clinic with a palpable mass in the lateral aspect of the left breast. Imaging revealed this to be rounded, well-circumscribed, and likely benign. The patient was scheduled for an excisional biopsy for definitive diagnosis. Procedure Description:Procedure Description: The patient was taken to the operating room and placed supine on the operating table. MAC anesthesia was induced. The preoperative time-out checklist was performed. The patient received 2 grams of Ancef as an IV prophylactic antibiotic. The left breast was then prepped and draped in the usual sterile manner. After adequate local anesthesia with 1% plain Xylocaine, an incision was made in the lateral aspect of the left breast. This was taken down sharply through skin and into the dermis. Electrocautery was then used to extend this incision down into the subcutaneous fat. A well-circumscribed fatty lesion was then seen. This was dissected free from the surrounding breast tissue utilizing electrocautery and blunt dissection. This was sent as a left breast mass. The area was thoroughly irrigated with sterile saline. Any noted bleeding was controlled with electrocautery. The incision was then closed in two layers with an interrupted 3-0 Vicryl dermal layer and a running 4-0 subcuticular Monocryl. Steri-Strips were applied. The patient tolerated the procedure well. * Brief Op Note - Nain Rodas MD - 09/28/2012 8:01 AM EST Brief Operative Note Patient Name: Eli Anderson : [id number] MR#: [id number] Case Date: 09/28/2012 Surgeon: Surgeon(s) and Role: * Nain Rodas MD - Primary Preoperative diagnosis: LEFT BREAST MASS Postoperative diagnosis: LEFT BREAST MASS Procedure(s): EXCISION CYST, FIBROADENOMA, ABBERANT BREAST TISSUE,DUCT LESION,NIPPLE OR AREOLAR LESION (LUMPECTOMY) Anesthesia: MAC Findings: Complications: none Fluids: Estimated Blood Loss: minimal Drains:none * OR Attestation - Nain Rodas MD - 09/28/2012 8:01 AM EST Attestation: Case Date: 09/28/2012 I was present and I participated during the entire procedure (does not need to include opening and closing). NAIN RODAS MD 09/28/2012 documented in this encounter Plan of Treatment Upcoming Encounters Date Type Department Care Team (Late st Contact Info) Description 03/12/2024 1:00 PM EDT Office Visit Hematology/Oncology at [address] [phone] Sony Lyons MD [facility] [place] [address] Dottie Lira APRN [address] [place] [address] DR HEMATOLOGY AND ONCOLOGY [place], [place] [id number] 03/19/2024 2:30 PM EDT Office Visit Dermatology at [place] [address] [facility] [place] [address] Sam Johns MD [address] [facility], [place] [address] documented as of this encounter Procedures Procedure Name Priority Date/Time Associated Diagnosis Comments SURGICAL PATHOLOGY REPORT Routine 09/28/2012 1:45 PM EST SPECIMEN TO PATHOLOGY Routine 09/28/2012 7:51 AM EST EXCISION CYST, FIBROADENOMA, ABBERANT BREAST TISSUE,DUCT LESION,NIPPLE OR AREOLAR LESION (LUMPECTOMY) (WRVU 5.92) 09/28/2012 7:24 AM EST LEFT BREAST MASS documented in this encounter Results * Surgical Pathology Report (09/28/2012 1:45 PM EST) Surgical Pathology Report ? [facility] ? Provider: ?? NAIN RODAS Pt. Name: ?? ELI ANDERSON ? Acc #: ?[id number] ?Pt. ? Col Date: ?? 09/28/2012 ?/Sex: ?1945,(67 ? years),Female ? Rec Date: ?? 09/28/2012 ?LOC: ?[facility] ? SURGICAL PATHOLOGY ? ---Pathologic Diagnosis--- ? Left breast mass ?Mature adipose tissue consistent with lipoma ? 09/29/12 ? VAM ? 09/29/12 Verified by: ? Delvin Zacarias MD ? Pathologist ? (Electronic Signature) ? The attending pathologist whose signature appears on this report has ? reviewed all diagnostic slides and has edited the gross and/or ? microscopic portion of the report in rendering the final pathologic ? diagnosis. ? ---Microscopic Description--- ? Slides reviewed, microscopic description not recorded. ? ---Gross Description--- ? Labeled/Fixative : ? Left breast mass, formalin. ? Qty/Size/Weight: ?Single, 3.7 x 2.5 x 1.2 cm. ? Tissue Description: ?? Portion of lobular, lenz-yellow fibroadipose tissue. ? The specimen is serially sectioned revealing smooth, ? glistening, lenz-yellow fibroadipose tissues. ??On section, cut surfaces are ? smooth, glistening, lenz-yellow fibroadipose tissues. ? Sections/Process ing: ??Gis Database Administrator sections are submitted. ??The margin is ? marked with black ink. ?(R5) ??aje/PPS ? ---Clinical Information--- ? Specimen Submitted: ? A - Left breast mass ? Clinical History/Diagnosi s: ? Left breast mass ROBB GIRALDO 09/28/2012 1:45 PM EST Nain Rodas MD PATHOLOGY/CYTOLOGY ORDERABLES Performing Organization Address [facility] Co de Phone Number ROBB GIRALDO * Specimen to Pathology (surgical or derm) (09/28/2012 7:51 AM EST) AP Specimen 09/28/2012 7:51 AM EST 09/28/2012 7:52 AM EST Narrative BRANDYARMANI GIRALDO - 09/28/2012 7:52 AM EST Specimen requisition ordered. ??Separate Pathology report to follow Nain Rodas MD PATHOLOGY/CYTOLOGY ORDERABLES Performing Organization Address [facility] Co de Phone Number ROBB GIRALDO documented in this encounter Visit Diagnoses Not on filedocumented in this encounter Administered Medications Inactive Administered Medications - up to 3 most recent administrations Medication Order MAR Action Action Date Dose Rate Site ceFAZolin (ANCEF) 2,000 mg in sodium chloride 0.9% 55 mL 2,000 mg (2 g), Intravenous, ONCE, 1 dose, On Fri09/28/12 at 0745, Administer over 30 Minutes, Redose after 4 hours., Day of Surgery (Day of Procedure), Indication for (Active or Suspected): Prophylaxis Given 09/28/2012 7:23 AM EST 2,000 mg 110 mL/hr lactated ringers infusion 1,000 mL 1,000 mL, at 100 mL/hr, Intravenous, CONTINUOUS, Starting on Fri09/28/12 at 0715, Until Fri09/28/12 at 1339, Day of Surgery (Day of Procedure) New Bag 09/28/2012 7:15 AM EST 1,000 mLs 100 mL/hr documented in this encounter Active and Recently Administered Medications Times are shown in EST. Scheduled Medication Order 09/26/2012 09/27/2012 09/28/2012 ceFAZolin (ANCEF) 2,000 mg in sodium chloride 0.9% 55 mL (COMPLETED) 2,000 mg (2 g), Intravenous, ONCE, 1 dose, On Fri09/28/12 at 0745, Administer over 30 Minutes, Redose after 4 hours., Day of Surgery (Day of Procedure), Indication for (Active or Suspected): Prophylaxis 0723 (Given - Provid er: Kika Son RN - Comment: ekaterina for ASSOCIATE PRINCIPAL to start) Continuous Medication Order 09/26/2012 09/27/2012 09/28/2012 lactated ringers infusion 1,000 mL (CANCELED) 1,000 mL, at 100 mL/hr, Intravenous, CONTINUOUS, Starting on Fri09/28/12 at 0715, Until Fri09/28/12 at 1339, Day of Surgery (Day of Procedure) 0715 (New Bag - Prov ider: Kika Son RN) PRN Medication Order 09/26/2012 09/27/2012 09/28/2012 lidocaine (PF) (XYLOCAINE) 10 mg/mL (1 %) injection (CANCELED) ONCE PRN, Starting on Fri09/28/12 at 0750, Until Fri09/28/12 at 1339, Intra-Operative (Intra-Procedure), Routine 0750 (Given - Provid er: Nain Rodas MD) documented in this encounter Care Teams Steam Roller Operator Relationship Specialty Start Date End Date Cristy Al APRN PCP - General 06/19/10 09/17/17 documented as of this encounter
--- OUTSIDE RECORDS SUMMARY | 2024-03-10 01:29 | XMS_ITS | Encounter Summary ---
[place] [address] Care Team Providers Care Wharf Laborer Name Role Phone AlgerRos mccollummary Awad APRN Primary Care Provider Encounter Details Date Type Department Care Team (Latest Contact Info) Description 08/13/2011 10:14 AM EST - 08/13/2011 11:59 PM [facility] Hospital [place] [address] CLINIC, DR WILIAN Nance, Wilma Mathews MD [address] [place], [place] [id number] Discharge Disposition: Home Social History Tobacco Use Types Packs/Day Years Used Date Smoking Tobacco: Never Assessed Sex and Gender Information Value Date Recorded Sex Assigned at Not on file Gender Identity Not on file Sexual Orientation Not on file documented as of this encounter Medications at Time of Discharge Medication Sig Dispensed Refills Start Date End Date levothyroxine (SYNTHROID) 150 mcg tablet 07/30/2010 08/29/2016 lisinopril (PRINIVIL;ZESTRIL) 10 mg tablet 07/30/2010 08/29/2016 levothyroxine (SYNTHROID) 175 mcg tablet 07/30/2010 08/29/2016 OXYcodone 10 mg Tab 10 MG = 1 Tablet(s), PO, Three times daily 07/30/2010 09/28/2012 naproxen (NAPROSYN) 500 mg tablet 07/30/2010 08/29/2016 albuterol (ACCUNEB) 1.25 mg/3 mL nebulizer solution 07/30/2010 08/29/2016 documented as of this encounter Plan of Treatment Upcoming Encounters Date Type Department Care Team (Late st Contact Info) Description 03/12/2024 1:00 PM EDT Office Visit Hematology/Oncology at [address] [place] [phone] Sony Lyons MD [facility] [place] [address] Dottie Lira APRN [address] [place] [address] DR HEMATOLOGY AND ONCOLOGY [place], [place] [id number] 03/19/2024 2:30 PM EDT Office Visit Dermatology at [place] [address] [facility] [place] [address] Sam Johns MD [address] [facility], [place] [address] documented as of this encounter Procedures Procedure Name Priority Date/Time Associated Diagnosis Comments MAMMO SCREENING CAD BILATERAL Routine 08/13/2011 10:51 AM EST documented in this encounter Results * MAMMO DIGITAL BILATERAL SCREENING WITH CAD (08/13/2011 10:51 AM EST) Anatomical Region Laterality Modality Breast Bilateral Mammography 08/13/2011 10:5 1 AM EST Narrative 08/15/2011 12:51 PM EST BILATERAL MAMMOGRAPHY ?? REASON FOR EXAM: Screening ?? TECHNIQUE: Cranio-caudal (CC) and mediolateral oblique (MLO) views of both breasts obtained with direct digital capture. The exam was evaluated by CAD Version 8.3.17. ?? FINDINGS: This is a negative mammogram (ACR Category 1). There is a stable fibroglandular pattern without significant change as compared to prior studies. There is no mammographic evidence of cancer. ? The breasts are predominantly fatty. ? A biopsy marker clip is present in the Left breast. ? CONCLUSION ?? This is a NEGATIVE mammogram (ACR Category 1). Routine screening mammography is recommended with the frequency dependent on the patient's age and breast cancer risk factors. ?? A letter has been sent to this patient by [facility]. Procedure Note Yasmin Joyce MD - 08/15/2011 BILATERAL MAMMOGRAPHY REASON FOR EXAM: Screening TECHNIQUE: Cranio-caudal (CC) and mediolateral oblique (MLO) views of both breasts obtained with direct digital capture. The exam was evaluated byMOOVIA Version 8.3.17. FINDINGS: This is a negative mammogram (ACR Category 1). There is a stable fibroglandular pattern without significant change as compared to priorstudies. There is no mammographic evidence of cancer. The breasts are predominantly fatty. A biopsy marker clip is present in the Left breast. CONCLUSION This is a NEGATIVE mammogram (ACR Category 1). Routine screeningmammography is recommended with the frequency dependent on the patient's age and breastcancer risk factors. A letter has been sent to this patient by the [facility]. Cristy Al APRN IMDelmi MAMMO ORDERABLES documented in this encounter Visit Diagnoses Not on filedocumented in this encounter Care Teams Wharf Laborer Relationship Specialty Start Date End Date Cristy Al APRN PCP - General 06/19/10 09/17/17 documented as of this encounter
--- OUTSIDE RECORDS SUMMARY | 2024-03-10 01:29 | XMS_ITS | Encounter Summary ---
Author Organization [facility] [place] [address] Care Team Providers Care Slurry Tank Tender Name Role Phone Cristy Al APRN Primary Care Provider [phone] Encounter Details Date Type Department Care Team (Late st Contact Info) Description 07/20/2012 1:58 PM EST - 07/20/2012 11:59 PM [facility] Hospital [place] [address] [place] Social History Tobacco Use Types Packs/Day Years Used Date Smoking Tobacco: Former Sex and Gender Information Value Date Recorded Sex Assigned at Not on file Gender Identity Not on file Sexual Orientation Not on file documented as of this encounter Medications at Time of Discharge Medication Sig Dispensed Refills Start Date End Date morphine (MS CONTIN) 60 mg 12 hr [...] 1:00 PM EDT Office Visit Hematology/Oncology at [address] [phone] Sony Lyons MD [facility] [place] [address] Dottie Lira APRN [address] [place] [address] DR HEMATOLOGY [place] [address] 03/19/2024 2:30 PM EDT Office Visit Dermatology at [place] [address] [facility] [place] [address] Sam Johns MD [address] [facility] [address] [place] [address] documented as of this encounter Procedures Procedure Name Priority Date/Time Associated Diagnosis Comments MAMMO UNILATERAL DIAGNOSTIC SCREENING WITH CAD Routine 07/20/2012 2:45 PM EST documented in this encounter Results * Mammo unilateral diagnostic screening with CAD [...] Sri Rogers MD IMG MAMMO ORDERABLE S documented in this encounter Visit Diagnoses Diagnosis Mass Localized superficial swelling, mass, or lump documented in this encounter Care Teams Slurry Tank Tender Relationship Specialty Start Date End Date Cristy Al APRN PCP - General 06/19/10 09/17/17 documented as of this encounter
--- OUTSIDE RECORDS SUMMARY | 2024-03-10 01:29 | XMS_ITS | Encounter Summary ---
Author Organization [facility] [place] [address] Care Team Providers Care Mortgage Consultant Name Role Phone Cristy Al APRN Primary Care Provider [phone] Reason for Visit * Reason Comments Obstructive Sleep Apnea Encounter Details Date Type Department Care Team (Late st Contact Info) Description 01/15/2011 11:10 AM EDT Office [place] [address] Alma Myers APRN [facility] [address] SUGEY (obstructive sleep apnea) (Primary Dx) Social History Tobacco Use Types Packs/Day Years Used Date Smoking Tobacco: Never Assessed Sex and Gender Information Value Date Recorded Sex Assigned at Not on file Gender Identity Not on file Sexual Orientation Not on file documented as of this encounter Progress Notes * Alma Myers APRN - 01/15/2011 11:53 AM EDT Report of Outpatient Follow up: History of Present Illness: Ms. Shiloh Anderson has a history of obstructive sleep apnea and nocturnal hypoventilation/hypoxemia,for which she was treated with CPAP at 11 cm (machine actually putting out 10 cm), and two liters of oxygen. On her overnight study, CPAP pressure of 11 cm was generally efficacious in non-REM sleep supine and was able to maintain saturations in the 90% range. A pressure of 15 cm demonstrated efficacious in non-REM and REM sleep supine, and was able to maintain saturations in the mid-90% range. She was issued a new CPAP machine at an auto- range of 12-16cm H20, after pt was unable to provide a detailed download from her older machine, and she had admitted to some excess gas and abdominal bloati ng in the mornings. Pt was last seen in 2010, at which time she stated that she is experiencing some mask flutter, also has a new romantic partner. Believes that she is still experiencing some obstructive apneas when she is not using the mask. She is going to bed much later to spend time with him, has been napping earlier in the day to accomodate his schedule. She also moved to a new apt yesterday. Pt denies depression at this time. Pt Presents today for a routine f/up appt; She is still using a FFM, size Medium (though admits that this is many months old); feels that this has been more comfortable, also is using the white T-shirt template and finds that this reduces the flutter. She has lost some weight and says that she feels that the mask is very loud at this time, has to wrestle to put it on- I need some adjustment. She is breathing thru her nostrils more easily. Otherwise, she has dry mouth about 50% of the time, nocondensation inside the mask. She believes that daytime energy is good, no close calls behind the wheel. Current Compliance Download (covers 08/01/10- 01/14/11) indicates: AHI= 2.8, avg daily use= 6'26, avgvibratory snore index= 1.9, avg leak varies bet. 53-70. Today's [place] Score is 1/24, indicating minimal daytime sleepiness (in contrast to last appt, when score was 14/24) Current Sleep Habitus: Typically to bed earlier than she had been at last appt- i.e., midnight, gets into supine position;she is asleep quickly then will awaken 1-2 x during the night to urinate, does not believe that sheis waking up as regularly as a result of her pain. Generally awakens around 7a, feeling like it's time to get up Physical Examination: Pt is a 65 y.o. female , avg ht, current weight is 207 lbs, indicating a 17 lb wt loss since her last appt in 2010; she denies any pain issues at this time since having laminectomy and a hesham-cap surgery on her left shoulder. She is in the process of weaning off of her pain medications (morphine sulfate, oxycodone) ACTIVE PROBLEM LIST SUGEY Assessment: Pt is doing well on using her CPap, though her FFM is old and this, combined with her recent weightloss has contributed to some difficulty wearing the mask at the current fixed pressure of 14cm H20.As a result, will reset her pressure to an auto-range of 12-14cm H2o, and have her refit for a different/newer FFM. Pt to RTC in 6 mos/PRN. ICSD diagnosis (code): 327.23 Provisional: Final: Obstructive sleep apnea Recommendations: 1. Reset CPap to auto-range of 12-14 __ cm H2O with/without ramp, and heated humidifier 2. Reviewed driving safety; pt is encouraged to pot puller and nap if feeling unsafe behind the wheel at any time. 3. RTC 6 mos/PRN documented in this encounter Plan of Treatment Upcoming Encounters Date Type Department Care Team (Late st Contact Info) Description 03/12/2024 1:00 PM EDT Office Visit Hematology/Oncology at [address] [phone] Sony Lyons MD [facility] [place] [address] Dottie Lira APRN [address] [place] [address] DR HEMATOLOGY AND ONCOLOGY [place], [place] [id number] 03/19/2024 2:30 PM EDT Office Visit Dermatology at [address] [place] [phone] Sam Johns MD [address] [place] [address] RD, [place] [address] documented as of this encounter Visit Diagnoses Diagnosis SUGEY (obstructive sleep apnea)- Primary Obstructive sleep apnea (adult) (pediatric) documented in this encounter Care Teams Mortgage Consultant Relationship Specialty Start Date End Date Cristy Al APRN PCP - General 06/19/10 09/17/17 documented as of this encounter
--- OUTSIDE RECORDS SUMMARY | 2024-03-10 01:29 | XMS_ITS | Encounter Summary ---
Author Organization [facility] [place] [address] Care Team Providers Care Mainspring Former Brace End Name Role Phone Cristy Son APRN Primary Care Provider [phone] Reason for Visit * Reason Comments Breast Mass Encounter Details Date Type Department Care Team (Late st Contact Info) Description 07/15/2012 9:30 AM EST Office [place] [address] Fide Jerome APRN [facility] [place] [address] Mass (Primary Dx) Discharge Disposition: Home Social History Tobacco Use Types Packs/Day Years Used Date Smoking Tobacco: Former Sex and Gender Information Value Date Recorded Sex Assigned at Not on file Gender Identity Not on file Sexual Orientation Not on file documented as of this encounter Last Filed Vital Signs Vital Sign Reading Time Taken Comments Blood Pressure 142/72 07/15/2012 9:52 AM EST Pulse 69 07/15/2012 9:52 AM EST Temperature - - Respiratory Rate - - Oxygen Saturation 100% 07/15/2012 9:52 AM EST Inhaled Oxygen Concentration - - Weight 98.3 kg (216 lb 11.4 oz) 07/15/2012 9:52 AM EST Height 160 cm (5' 3) 07/15/2012 9:52 AM EST Body Mass Index 38.39 07/15/2012 9:52 AM EST documented in this encounter Progress Notes * Fide Jerome APRN - 07/15/2012 9:53 AM EST Ms. Anderson is a 66 y.o. year-old patient who is self referred for evaluation of a mass in the lateral aspect of her left breast. Ms. Anderson appreciated this on self exam recently. She denies any skin changes,breast trauma, prior breast surgery or nipple discharge. Imaging performed ( bilateral mammogram)at [facility] on 07/2011 was interpreted as Category 1 . She does have a history of cystic breast tissue and has not had cysts aspirated.In 2006 she had a benign left breast biopsy. She does do regular self-breast exams. Weight stable but down 60 lbs since 2 years ago. She has no new or concerning complaints of fatigue, cardiovascular or respiratory symptoms. All other ROS are negative. Reproductive History: , had her first child at the age of 15 and did nurse her children. Menarche began at 13.Her LMP was in her early 50's HRT/OC:HRT x 2 years Family History: Negative for ovarian cancer. 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 She does smoke. Past Medical History: HTN, sleep apnea, hypothyroid, fibromyalgia,OA Past Surgical History: left breast biopsy Physical Exam: She looks well and is in no apparent distress. Her skin is anicteric with good turgor. Sclera are anicteric. Her head and neck are without masses or adenopathy. Her arms have good ROM without any evidence of lymphedema. Breasts are large and ptotic. Her breasts are symmetric. Her nipples are everted. There is no axillary adenopathy on the right or the left. There are no skin changes or dimpling noted in either breast. The left breast is notable for generally homogenous breast tissue,with a soft discrete mass at 0300,approx 2cm from areolar edge with skin tethering.Adjacent to this area is a mound of prominent glandular tissue. Her right breast exam is similar in character to her left breast,without discrete masses. Assessment: Clinical breast exam notable for fibrocystic breast tissue With a soft discrete mass in her left breast consistent in texture to a lipoma. Will further evaluate with imaging. Plan: I will call Ms. Anderson After her mammogram and focused US of the left breast.Surgical follow up based on outcome of imaging. Ms. Anderson agrees to this plan. CRISTY SON APRN documented in this encounter Plan of Treatment Upcoming Encounters Date Type Department Care Team (Late st Contact Info) Description 03/12/2024 1:00 PM EDT Office Visit Hematology/Oncology at [address] [phone] Sony Lyons MD [facility] [place] [address] Dottie Lira APRN [address] [place] [address] DR HEMATOLOGY AND ONCOLOGY [place], [place] [id number] 03/19/2024 2:30 PM EDT Office Visit Dermatology at [place] [address] [facility] [place] [address] Sam Johns MD [address], [place] [address] documented as of this encounter Results * Mammo breast US unilateral bilateral (07/20/2012 2:46 PM EST) Anatomical Region Laterality Modality Breast N/A Mammography 07/20/2012 2:46 PM EST Impressions 07/22/2012 10:13 AM EST [...] documented in this encounter Visit Diagnoses Diagnosis Mass- Primary Localized superficial swelling, mass, or lump Mass Localized superficial swelling, mass, or lump documented in this encounter Care Teams Mainspring Former Brace End Relationship Specialty Start Date End Date Cristy Son APRN PCP - General 06/19/10 09/17/17 documented as of this encounter
--- OUTSIDE RECORDS SUMMARY | 2024-03-10 01:29 | XMS_ITS | Encounter Summary ---
Author Organization [facility] [place] [address] Care Team Providers Care Fur Dyer Name Role Phone PittCristy mccollum Delmi VARGAS Primary Care Provider [phone] Encounter Details Date Type Department Care Team (Late Contact Info) Description 07/30/2010 10:40 AM EST Follow-[place] [address] Alma Myers [facility] [address] Social History Tobacco Use Types Packs/Day Years [...] PM EDT Office Visit Hematology/Oncology at [address] [phone] Sony Lyons MD [facility] [place] [address] Dottie Lira [address] [place] [address] 03/19/2024 2:30 PM EDT Office Visit Dermatology at [place] [address] [facility] [address] [place] [address] Sam Johns MD [address], F[place] [address] documented as of this encounter Visit Diagnoses Not on filedocumented in this encounter Care Teams Fur Dyer Relationship Specialty Start Date End Date Cristy Al APRN PCP - General 06/19/10 09/17/17 documented as of this encounter
--- OUTSIDE RECORDS SUMMARY | 2024-03-10 01:29 | XMS_ITS | Encounter Summary ---
Author Organization Formerly [facility] [place] [address] Care Team Providers Care Geriatric Personal Care Aide Name Role Phone Mikaela Cristy Awad APRN Primary Care Provider [phone] Encounter Details Date Type Department Care Team (Late Contact Info) Description 09/09/2012 1:00 PM EST [place] [phone] Anesthesia Record Procedure Summary Procedure Name Responsible [...] 1:00 PM EDT Office Visit Hematology/Oncology at [address] [phone] Sony Lyons MD [facility] [place] [address] Dottie Lira APRN [address] [place] [address] DR HEMATOLOGY [place] [address] 03/19/2024 2:30 PM EDT Office Visit Dermatology at [place] [address] [place] [address] Sam Johns MD [address], F[place] [address] documented as of this encounter Visit Diagnoses Not on filedocumented in this encounter Care Teams Geriatric Personal Care Aide Relationship Specialty Start Date End Date Critsy Al APRN PCP - General 06/19/10 09/17/17 documented as of this encounter
--- OUTSIDE RECORDS SUMMARY | 2024-03-10 01:29 | XMS_ITS | Encounter Summary ---
[place] [address] Care Team Providers Care Interpreter For The Deaf Name Role Phone Mikaela Cristy Awad APRN Primary Care Provider [phone] Encounter Details Date Type Department Care Team (Late st Contact Info) Description 07/06/2010 1:00 PM EST Procedure visit [place] [address] Social History Tobacco Use Types Packs/Day Years [...] 1:00 PM EDT Office Visit Hematology/Oncology at [address] [phone] Sony Lyons MD [facility] [place] [address] Dottie Lira APRN [address] [place] [address] DR HEMATOLOGY AND ONCOLOGY [place], [place] [id number] 03/19/2024 2:30 PM EDT Office Visit Dermatology at [address] [place] [phone] Sam Johns MD [address] [place] [address], [place] [address] documented as of this encounter Visit Diagnoses Not on filedocumented in this encounter Care Teams Interpreter For The Deaf Relationship Specialty Start Date End Date Cristy Al APRN PCP - General 06/19/10 09/17/17 documented as of this encounter
--- OUTSIDE RECORDS SUMMARY | 2024-03-10 01:29 | XMS_ITS | Encounter Summary ---
Author Organization [facility] Address [facility] [place] [address] Care Team Providers Care Director Educational Radio Name Role Phone Cristy Al APRN Primary Care Provider [phone] Encounter Details Date Type Department Care Team (Late st Contact Info) Description 07/06/2010 12:23 PM EST - 07/06/2010 11:59 PM [facility] Hospital Encounter [facility] Wilma Nance MD [address] [place], [place] [address] Discharge Disposition: Home Social History Tobacco Use [...] PM EDT Office Visit Hematology/Oncology at [address] [phone] Sony Lyons MD [facility] [place] [address] Dottie Lira APRN [address] [place] [address] DR HEMATOLOGY AND ONCOLOGY [place], [place] [id number] 03/19/2024 2:30 PM EDT Office Visit Dermatology at [address] [place] [address] Sam Johns MD [address] [facility], [place] [address] documented as of this encounter Visit Diagnoses Not on filedocumented in this encounter Care Teams Director Educational Radio Relationship Specialty Start Date End Date Cristy Al APRN PCP - General 06/19/10 09/17/17 documented as of this encounter
--- OUTSIDE RECORDS SUMMARY | 2024-03-10 01:29 | XMS_ITS | Encounter Summary ---
Author Organization [facility] Address [facility] [place] [address] Care Team Providers Care Switch Engineer Name Role Phone Cristy Al APRN Primary Care Provider [phone] Encounter Details Date Type Department Care Team (Late st Contact Info) Description 06/29/2010 9:05 AM EST - 06/29/2010 11:59 PM [facility] Hospital Encounter [facility] Wilma Nance MD [address] [place], [place] [address] Discharge Disposition: Home Social History Tobacco Use [...] 1:00 PM EDT Office Visit Hematology/Oncology at [address] [phone] Sony Lyons MD [facility] [place] [address] Dottie Lira APRN [address] [place] [address] DR HEMATOLOGY AND ONCOLOGY [place], [place] [address] 03/19/2024 2:30 PM EDT Office Visit Dermatology at [address] [place] [address] Sam Johns MD [address] [facility], [place] [address] documented as of this encounter Visit Diagnoses Not on filedocumented in this encounter Care Teams Switch Engineer Relationship Specialty Start Date End Date Cristy Al APRN PCP - General 06/19/10 09/17/17 documented as of this encounter
--- OUTSIDE RECORDS SUMMARY | 2024-03-10 01:29 | XMS_ITS | Encounter Summary ---
[place] [address] Care Team Providers Care Director Of Medicare Name Role Phone Cristy Al APRN Primary Care Provider [phone] Reason for Visit * Reason Comments Skin Check face only * Consultation (Routine) - Closed Specialty Diagnoses / Procedures Referred By Renan villavicencio Referred To Contact Dermatology Diagnoses long standing nodular lesion on forehead & AK on R cheek Cristy Al APRN [address] [place] [address] Sam Johns MD [address] [facility], [facility] [place] [address] Referral ID Status Reason Start Date Expiration Date V isits Requested Visits Authorized [id number] Closed Consult, Test & Treat Connection [facility] 05/08/2015 05/07/2016 1 1 Encounter Details Date Type Department Care Team (Late st Contact Info) Description 08/29/2015 11:00 AM EST Office Visit Dermatology at [place] [address] [place] [phone] Sam Johns MD [address] [facility], [facility] DERMATOLOGY [place], [place] [id number] AK (actinic keratosis); Basal cell carcinoma Social History Tobacco Use Types [...] Progress Notes * Sam Johns MD - 08/29/2015 11:53 AM EST Problem: Skin lesion of concern. Shiloh is a 70-year-old woman who would like to have a general skin check. She is referred by Cristy Al. She has had actinic keratoses treated in the past and recalls having been prescribed a cream to apply to her actinics. She is the mother of nine children, seven girls and two boys, some from another marriage. She enjoys out of doors, rides quarter horses (she has two), has various different animals, and has farmed. She is concerned about a pearly papule on the right supra brow and bumps on her forehead. Physical examination reveals a fair-skinned, blue-eyed woman with moderate solar actinic damage of the forehead and about six actinic keratoses present there today. She does also have a 6-mm pearly papule on the right supra brow concerning for BCCA versus SCCA. She does not desire examination of her chest, back, hands, arms, or forearms. She is overweight at 250 pounds. Assessment and Plan: 1. Actinic keratoses, forehead. a. LN2 times two applied to each of six sites on the forehead. b. I recommended I see her again on a yearly basis for routine skin checkups. I suspect she is going to need regular yearly followup to treat new lesions. 2. 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 a. Today the site was anesthetized and removed with shave C and D. b. Triple antibiotic ointment and Band-Aid placed. c. Wound care instructions and supplies given. d. After curettage, the site measured 6 mm in diameter. e. Return to clinic here in one year. COPY: Cristy Al A.P.R.N. documented in this encounter Plan of Treatment Upcoming Encounters Date Type Department Care Team (Late st Contact Info) Description 03/12/2024 1:00 PM EDT Office Visit Hematology/Oncology at [address] [phone] Sony Lyons MD [facility] [place] [address] Dottie Lira APRN [address] [place] [address] DR HEMATOLOGY [place] [address] 03/19/2024 2:30 PM EDT Office Visit Dermatology at [place] [address] [facility] [place] [address] Sam Johns MD [address] [facility], [place] [address] documented as of this encounter Procedures Procedure Name Priority Date/Time Associated Diagnosis Comments SURGICAL PATHOLOGY SCAN 09/05/2015 12:00 AM EST documented in this encounter Results * SCAN DOC: SURGICAL PATHOLOGY (09/05/2015 12:00 AM EST) Scanning Provider MEDIA MGR SCAN EXT O RDR/RSLT documented in this encounter Visit Diagnoses Diagnosis AK (actinic keratosis) Actinic keratosis Basal cell carcinoma Basal cell carcinoma of skin, site unspecified documented in this encounter Care Teams Director Of Medicare Relationship Specialty Start Date End Date Cristy Al APRN PCP - General 06/19/10 09/17/17 documented as of this encounter
--- OUTSIDE RECORDS SUMMARY | 2024-03-10 01:29 | XMS_ITS | Encounter Summary ---
Author Organization Formerly [facility] [address] Care Team Providers Care Simulation Engineer Name Role Phone Cristy Al APRN Primary Care Provider [phone] Reason for Visit * Reason Comments Obstructive Sleep Apnea Encounter Details Date Type Department Care Team (Late st Contact Info) Description 11/19/2011 10:10 AM EDT [place] [address] Alma Myers APRN [facility] [address] SUGEY on CPAP (Primary Dx) Social History Tobacco Use Types Packs/Day Years Used Date Smoking Tobacco: Former Sex and Gender Information Value Date Recorded Sex Assigned at Not on file Gender Identity Not on file Sexual Orientation Not on file documented as of this encounter Last Filed Vital Signs Vital Sign Reading Time Taken Comments Blood Pressure 142/88 11/19/2011 10:31 AM EDT Pulse 78 11/19/2011 10:31 AM EDT Temperature - - Respiratory Rate - - Oxygen Saturation - - Inhaled Oxygen Concentration - - Weight 103.4 kg (228 lb) 11/19/2011 10:31 AM EDT Height 160 cm (5' 3) 11/19/2011 10:31 AM EDT Body Mass Index 40.39 11/19/2011 10:31 AM EDT documented in this encounter Progress Notes * Alma Myers APRN - 11/19/2011 10:54 AM EDT Report of Outpatient Follow up: [...] the mornings. Pt was last seen in 2011, at which time she was to be refit for a replacement mask, pressure was maintained at 12-14cm H2o. Believes that she is still experiencing some obstructive apneas when she is not using the mask. She is going to bed much later to spend time with him, has been napping earlier in the day to accomodate his schedule. She also moved to a new apt in June. Pt denies depression at this time. Pt presents today for a routine f/up appt; She is still using a Quattro FX, FFM, size small (says that she rec'd new liners in ); feels that this is a better fit, is more comfortable. She is no longer using the white T-shirt template ;she is comfortable with her mask. No longer feels that CPap pressure is too strong. Unfortunately, she says that as soon as she puts the mask on and turns the power on, the machine starts beeping and shuts off. The breathing rhythm is crazy; I feel like it wants to do the inhale/exhale is doing its own thing. She has gained some weight and says that she feels that the mask can be difficult has to wrestle to put it on. She is breathing thru her nostrils more easily. I don't snore when it's on. Otherwise, she denies dry mouth, no condensation inside the mask. She believes that daytime energy is generally good, no close calls behind the wheel, though acknowledges that she only drives short distances, anyway. Current Compliance Download (covers 08/19/11- 11/17/11) indicates: AHI= 1.6, avg daily use= 2'35, avg vibratory snore index= 11.4, avg leak varies bet. 53-70. Today's Abse[place] Score is 8, indicating minimal daytime sleepiness (slightly higher than last appt, when score was 5/24) Current Sleep Habitus: I've settled into better sleep patterns, Typically to bed between 8-9p, generally TRIES to apply her FFM, though often becomes frustrated with it, so removes the mask. Starts in supine position; she is asleep quickly, may awaken once during the night to urinate, does not believe that she is waking up as regularly as a result of her pain. Generally awakens around 6a, feeling refreshed. Physical Examination: Pt is a 66 y.o. female, avg ht, current weight is 228 lbs, indicating a 2 lb wt gain since her lastappt in 2011; she denies any pain issues at this time since having laminectomy and a hesham-cap surgery on her left shoulder. Pt denies depression or mood instability at this time. Assures me thatshe is safe behind the wheel. ACTIVE PROBLEM LIST SUGEY Assessment: Pt is having difficulty using her CPap, though her FFM is showing a fair amount of leakage, combined with weight gain has contributed to some difficulty wearing the mask at the current fixed pressureof 12-14cm H20. As a result, will confirm mask fit/reorder mask and will maintain her pressure to an auto-range of 10-15cm H2o, will also reset her A-Flex to '3' in hopes of easing her breathing rhythm. Pt to RTC in 3 mos/PRN. ICSD diagnosis (code): 327.23 Provisional: Final: Obstructive sleep apnea Recommendations: 1. Reset CPap to auto-range of 10-15 __ cm H2O with/without ramp, and heated humidifier 2. Reviewed driving safety; pt is encouraged to pulley maintainer and nap if feeling unsafe behind the wheel at any time. 3. RTC 3 mos/PRN Subjective: Patient ID: Shiloh F Justin is a 66 y.o. female. HPI Review of Systems Objective: Physical Exam Assessment and Plan: No problem-specific visit notes found for this encounter. documented in this encounter Plan of Treatment Upcoming Encounters Date Type Department Care Team (Late st Contact Info) Description 03/12/2024 1:00 PM EDT Office Visit Hematology/Oncology at [address] [phone] Sony Lyons MD [facility] [address] Dottie Lira APRN [address] [place] [address] [place] [address] 03/19/2024 2:30 PM EDT Office Visit Dermatology at [place] [address] [facility] [place] [address] Sam Johns MD [address] [facility], [place] [address] documented as of this encounter Visit Diagnoses Diagnosis SUGEY on CPAP- Primary Obstructive sleep apnea (adult) (pediatric) documented in this encounter Care Teams Simulation Engineer Relationship Specialty Start Date End Date Cristy Al APRN PCP - General 06/19/10 09/17/17 documented as of this encounter
--- OUTSIDE RECORDS SUMMARY | 2024-03-10 01:29 | XMS_ITS | Encounter Summary ---
[place] [address] Care Team Providers Care Siphoner Name Role Phone Box ButteCristy mccollum Delmi VARGAS Primary Care Provider [phone] Encounter Details Date Type Department Care Team (Late st Contact Info) Description 09/28/2012 7:28 AM EST Anesthesia Event [place] [address] Mikel Rivas MD [facility] [place] [address] Gaby Howell MD [facility] [place] [address] Anesthesia Record Procedure Summary Procedure Name Responsible Anesthesiologist Anesthesia Start Time Anesthesia Stop Time EXCISION CYST, FIBROADENOMA, ABBERANT BREAST TISSUE,DUCT LESION,NIPPLE OR AREOLAR LESION (LUMPECTOMY) (WRVU 5.92) (Left: Breast) Mikel Rivas MD 09/28/12 0728 09/28/12 0809 Events Date Time Event Comment 09/28/2012 0727 0728 Start 0809 Stop Meds * Agents No agents on file. * Blood No blood administrations on file. Lines, Drains, and Airways Type Details Placement Removal Incision 09/28/12; breast; 03/25/22 (LDA cleanup utility RA#[id number]); 1715 (LDA cleanup utility RA#[id number]) 09/28/12 0000 by Gaby Conley RN 03/25/22 1715 by Amie Arboleda (RETIRED) Peripheral IV Line - Single Lumen 09/28/12; 0719; 09/28/12; 0824 09/28/12 0719 by Kika Son RN 09/28/12 0824 by Kika Son RN documented in this encounter Social History Tobacco [...] OR Notes * Anesthesia Postprocedure Evaluation - Mikel Rivas MD - 09/28/2012 8:19 AM EST Patient: Shiloh Anderson Procedure(s) Performed: Procedure(s): EXCISION CYST, FIBROADENOMA, ABBERANT BREAST TISSUE,DUCT LESION,NIPPLE OR AREOLAR LESION (LUMPECTOMY) Patient location: PACU Post-op pain: Adequate analgesia Post-op nausea: no nausea or vomiting Last Vitals: Filed Vitals: 09/28/12 0808 BP: 126/63 Pulse: 75 Temp: 37 ??C (98.6 ??F) Resp: 18 Post-op cardiovascular and respiratory status: is stable Level of consciousness: awake, alert and oriented Complications: no apparent complications, tolerated the procedure well and no evidence of recall Fluid Status: normal Shiloh Anderson denied any sore throat, damage to teeth/gums, chest pain, difficulty breathing, or numbness in their extremities. There were no anesthesia related complications unless detailed below.All questions were answered. Overall, the patient expressed satisfaction with the anesthesia care they received. Please contact us with any further questions or concerns. Mikel Rivas MD [phone] * Anesthesia Preprocedure Evaluation - Mikel Rivas MD - 09/28/2012 7:25 AM EST Today I evaluated Shiloh Anderson a 67 y.o. female. Procedure(s): EXCISION CYST, FIBROADENOMA, ABBERANT BREAST TISSUE,DUCT LESION,NIPPLE OR AREOLAR LESION (LUMPECTOMY) Patient Active Problem List Diagnoses ??? Breast mass Past Medical History Diagnosis Date ??? Hypertension ??? SUGEY on CPAP ??? Thyroid disease hypothyroid ??? Arthritis Past Surgical History Procedure Date ??? Joint replacement hip and knee ??? Back surgery ??? Shoulder surgery History Substance Use Topics ??? Smoking status: Current Everyday Smoker -- 1.5 packs/day for 15 years Types: Cigarettes ??? Smokeless tobacco: Not on file Comment: Restarted trying to stop now ??? Alcohol Use: 1.8 oz/week 3 Cans of beer per week No Known Allergies Medications: MAR and/or home medications have been reviewed. Physical Exam: There were no vitals filed for this visit. There is no height or weight on file to calculate BMI. Airway Assessment: Mallampati: I TM distance: >3 FB Neck ROM: full Cardiovascular Assessment: Pulmonary Assessment: [facility] Assessment: Anesthesia Plan: ASA 2 MAC, with a(n) intravenous induction 67 yo F here for left breast mass biopsy. H/o HTN (on lisinopril), hypothyroidism (on synthroid), chronic pain (on oxycodone and MS contin), and depression. She has had multiple orthopedic surgeries without anes complications. NKDA. NPO. She is a smoker starting up in October. Risks and benefits of GA and MAC discussed with questions sought and answered. Plan for MAC. Informed Consent: Anesthetic plan and risks discussed with patient. Plan discussed with TUMBLER MACHINE OPERATOR. Misc. Assessment: documented in this encounter Plan of Treatment Upcoming Encounters Date Type Department Care Team (Late st Contact Info) Description 03/12/2024 1:00 PM EDT Office Visit Hematology/Oncology at [address] [phone] Sony Lyons MD [facility] [place] [address] Dottie Lira APRN [address] [place] [address] DR [place]ATOLOGY [place] [address] 03/19/2024 2:30 PM EDT Office Visit Dermatology at [place] [address] [place] [phone] Sam Johns MD [address], [place] [address] documented as of this encounter Visit Diagnoses Not on filedocumented in this encounter Care Teams Siphoner Relationship Specialty Start Date End Date Cristy Al APRN PCP - General 06/19/10 09/17/17 documented as of this encounter
--- OUTSIDE RECORDS SUMMARY | 2024-03-10 01:29 | XMS_ITS | Encounter Summary ---
[place] [address] Care Team Providers Care Clinical Professor Name Role Phone Mikaela Cristy Awad APRN Primary Care Provider [phone] Encounter Details Date Type Department Care Team (Late st Contact Info) Description 06/29/2010 9:15 AM EST Office Visit [place] [address] Social History Tobacco Use Types Packs/Day Years [...] PM EDT Office Visit Hematology/Oncology at [address] [phone] Sony Lyons MD [facility] [place] [address] Dottie Lira APRN [address] [place] [address] DR HEMATOLOGY AND ONCOLOGY [place], [place] [address] 03/19/2024 2:30 PM EDT Office Visit Dermatology at [address] [place] [address] Sam Johns MD [address] [place] [address], [place] [address] documented as of this encounter Visit Diagnoses Not on filedocumented in this encounter Care Teams Clinical Professor Relationship Specialty Start Date End Date Cristy Al APRN PCP - General 06/19/10 09/17/17 documented as of this encounter
--- OUTSIDE RECORDS SUMMARY | 2024-03-10 01:29 | XMS_ITS | Encounter Summary ---
[place] [address] Care Team Providers Care Security Software Engineer Name Role Phone Mikaela Cristy Awad APRN Primary Care Provider [phone] Encounter Details Date Type Department Care Team (Late st Contact Info) Description 07/06/2010 1:30 PM EST Procedure visit [place] [address] Social History Tobacco Use Types Packs/Day Years [...] PM EDT Office Visit Hematology/Oncology at [address] [phone] Sony Lyons MD [facility] [place] [address] Dottie Lira APRN [address] [place] [address] DR HEMATOLOGY AND ONCOLOGY [place], [place] [phone] 03/19/2024 2:30 PM EDT Office Visit Dermatology at [address] [place] [phone] Sam Johns MD [address] [facility], [place] [address] documented as of this encounter Visit Diagnoses Not on filedocumented in this encounter Care Teams Security Software Engineer Relationship Specialty Start Date End Date Cristy Al APRN PCP - General 06/19/10 09/17/17 documented as of this encounter
--- OUTSIDE RECORDS SUMMARY | 2024-03-10 01:29 | XMS_ITS | Encounter Summary ---
Author Organization [facility] Address [facility] [place] [address] Care Team Providers Care Still Operator Name Role Phone Wilma Nance MD Primary Care Provider [phone] Encounter Details Date Type Department Care Team (Late st Contact Info) Description 10/18/2010 Interpretation Only Radiology [address] [place] [address] [place] [phone] Unknown None Social History Tobacco Use Types Packs/Day Years [...] 1:00 PM EDT Office Visit Hematology/Oncology at [address] [phone] Sony Lyons MD [facility] [place] [place] [address] Dottie Lira APRN [address] [place] [address] DR HEMATOLOGY AND ONCOLOGY [place], [place] [id number] 03/19/2024 2:30 PM EDT Office Visit Dermatology at [address] [place] [phone] Sam Johns MD [address] [place] [address], FUAD A DERMATOLOGY [place], [place] [phone] documented as of this encounter Procedures Procedure Name Priority Date/Time Associated Diagnosis Comments XR FLUORO NO RAD <1HR - RADIOLOGY USE Routine 10/18/2010 8:02 AM EDT documented in this encounter Results * XR Fluoro <1Hr - Radiology Use (10/18/2010 8:02 AM EDT) Anatomical Region Laterality Modality N/A Radiographic Mishel ging 10/18/2010 8:02 AM EDT Narrative 10/18/2010 8:02 AM EDT APD Historical Result Principal Systems Administrator: ??CLAUDIO ??August FLUOROSCOPIC ASSISTANCE: A total of 9.1 seconds of fluoroscopic assistance was provided to Dr Abdalla during the performance of a surgical/special procedure. Four images record the event. ??No Radiologist was in attendance during service provision. Claudio Lai MD, FACR [facility] [id number] CC: Procedure Note Unknown - 01/26/2019 APD Historical Result Principal Systems Administrator: CLAUDIO Koch FLUOROSCOPIC ASSISTANCE: A total of 9.1 seconds of fluoroscopic assistance was provided to Reji during the performance of a surgical/special procedure. Four images record the event.No Radiologist was in attendance during service provision. Claudio Lai MD, FACR [facility] [id number] CC: Unknown IMG FLUORO ORDERABLE S documented in this encounter Visit Diagnoses Not on filedocumented in this encounter Care Teams Still Operator Relationship Specialty Start Date End Date Wilma Nance MD [address] [place] [address] PCP - General Family Medicine 09/18/17 documented as of this encounter
--- OUTSIDE RECORDS SUMMARY | 2024-03-10 01:29 | XMS_ITS | Encounter Summary ---
Author Organization [facility] Address [facility] [place] [address] Care Team Providers Care Paint Coating Machine Operator Name Role Phone [place]le[place]Ros mccollummary Awad APRN Primary Care Provider [phone] Encounter Details Date Type Department Care Team (Latest Contact Info) Description 07/20/2012 1:57 PM EST - 07/20/2012 11:59 PM [facility] Hospital [place] [address] CLINIC, Sri Martin MD [facility] [place] [address] Mass Discharge Disposition: Home Social History Tobacco Use [...] 1:00 PM EDT Office Visit Hematology/Oncology at [address] [phone] Sony Lyons MD [facility] [place] [address] Dottie Lira APRN [address] [place] [address] DR HEMATOLOGY AND ONCOLOGY [place], [place] [address] 03/19/2024 2:30 PM EDT Office Visit Dermatology at [place] [address] [place] [phone] Sam Johns MD [address], [place] [address] documented as of this encounter Procedures Procedure Name Priority Date/Time Associated Diagnosis Comments MAMMO BREAST US LIMITED Routine 07/20/2012 2:46 PM EST Mass documented in this encounter Results * Mammo breast US [...] lump documented in this encounter Care Teams Paint Coating Machine Operator Relationship Specialty Start Date End Date Cristy Al APRN PCP - General 06/19/10 09/17/17 documented as of this encounter
--- OUTSIDE RECORDS SUMMARY | 2024-03-10 01:29 | XMS_ITS | Encounter Summary ---
Author Organization [facility] [place] [address] Care Team Providers Care Acting Manager Name Role Phone Cristy Al APRN Primary Care Provider [phone] Reason for Visit * Reason Comments Obstructive Sleep Apnea Encounter Details Date Type Department Care Team (Late st Contact Info) Description 08/19/2011 10:10 AM EST [place] [address] Alma Myers APRN [facility] PS[place] [address] SUGEY on CPAP (Primary Dx) Social History Tobacco Use Types Packs/Day Years Used Date Smoking Tobacco: Never Assessed Sex and Gender Information Value Date Recorded Sex Assigned at Not on file Gender Identity Not on file Sexual Orientation Not on file documented as of this encounter Last Filed Vital Signs Vital Sign Reading Time Taken Comments Blood Pressure 159/92 08/19/2011 11:09 AM EST Pulse 73 08/19/2011 11:09 AM EST Temperature - - Respiratory Rate - - Oxygen Saturation - - Inhaled Oxygen Concentration - - Weight 102.7 kg (226 lb 6.4 oz) 012 11:09 AM EST Height - - Body Mass Index - - documented in this encounter Progress Notes * Alma Myers APRN - 08/19/2011 11:03 AM EST Report of Outpatient Follow up: History of [...] is many months old); feels that this is no longer comfortable- this one is a newer model than the last one. She is no longer using the white T-shirt template ; still complains of air leakage (partic. Over the bridge of her nose, also notes mask flutter. The mask will annoy me. Feels that CPap pressure is too strong. She has continued to lose weight and says that she feels that the mask is very loud at this time, no longer has to wrestle to put it on. She is breathing thru her nostrils more easily. Otherwise, she has dry mouth about 50% of the time, no condensation inside the mask. She believes that daytime energy is good, no close calls behind the wheel. Current Compliance Download (covers 01/16/11- 08/13/11) indicates: AHI= 1.9, avg daily use= 2'1, avgvibratory snore index= 7.4, avg leak varies bet. 53-70. Today's Houston Score is 5/24, indicating minimal daytime sleepiness (slightly less than last appt, when score was 1/24) Current Sleep Habitus: I'm having wicked crazy sleep patterns, Typically to bed around 10p, gets into supine position; she is asleep quickly then won't awaken during the night to urinate, does not believe that she is waking up as regularly as a result of her pain. Generally awakens around 6a, feeling refreshed. Physical Examination: Pt is a 66 y.o. female , avg ht, current weight is 226 lbs, indicating a 19 lb wt gain since her last appt in 2010; she denies any pain issues at this time since having laminectomy and a hesham-cap surgery on her left shoulder. Pt denies depression or mood instability at this time. Assures me that she is safe behind the wheel. ACTIVE PROBLEM LIST SUEGY Assessment: Pt is doing well on using her CPap, though her FFM is old and this, combined with weight gain has contributed to some difficulty wearing the mask at the current fixed pressure of 12-14cm H20. As a result, will confirm mask fit/reorder mask and will maintain her pressure to an auto-range of 12-14cm H2o. Pt to RTC in 3 mos/PRN. ICSD diagnosis (code): 327.23 Provisional: Final: Obstructive sleep apnea Recommendations: 1. Reset CPap to auto-range of 12-14 __ cm H2O with/without ramp, and heated humidifier 2. Reviewed driving safety; pt is encouraged to pan puller and nap if feeling unsafe behind the wheel at any time. 3. RTC 6 mos/PRN Subjective: Patient ID: Shiloh Anderson is a 66 y.o. female. HPI Review of Systems Objective: Physical Exam Assessment and Plan: No problem-specific visit notes found for this encounter. documented in this encounter Plan of Treatment Upcoming Encounters Date Type Department Care Team (Late st Contact Info) Description 03/12/2024 1:00 PM EDT Office Visit Hematology/Oncology at [address] [phone] Sony Lyons MD [facility] [place] [address] Dottie Lira APRN [address] [place] [address] DR [place] [address] 03/19/2024 2:30 PM EDT Office Visit Dermatology at [place] [address] [place] [phone] Sam Johns MD [address], [place] [address] documented as of this encounter Visit Diagnoses Diagnosis SUGEY on CPAP- Primary Obstructive sleep apnea (adult) (pediatric) documented in this encounter Care Teams Acting Manager Relationship Specialty Start Date End Date Cristy Al APRN PCP - General 06/19/10 09/17/17 documented as of this encounter
--- OUTSIDE RECORDS SUMMARY | 2024-03-10 01:29 | XMS_ITS | Encounter Summary ---
Author Organization [facility] [place] [address] Care Team Providers Care Storage Management Architect Name Role Phone SomervellCristy APRN Primary Care Provider [phone] Reason for Visit * Reason Comments Breast Mass left Encounter Details Date Type Department Care Team (Late st Contact Info) Description 09/09/2012 10:15 AM EST Office Visit [place]ology [place] [address] Yuval Rodas MD [facility] [place] [address] Mass of breast, left (Primary Dx) Discharge Disposition: Home Social History Tobacco Use Types Packs/Day Years Used Date Smoking Tobacco: Former Sex and Gender Information Value Date Recorded Sex Assigned at Not on file Gender Identity Not on file Sexual Orientation Not on file documented as of this encounter Last Filed Vital Signs Vital Sign Reading Time Taken Comments Blood Pressure 150/80 09/09/2012 10:25 AM EST Pulse 84 09/09/2012 10:25 AM EST Temperature 36.4 ??C (97.5 ??F) 09/09/2012 10:[address] Respiratory Rate 16 09/09/2012 10:25 AM EST Oxygen Saturation - - Inhaled Oxygen Concentration - - Weight - - Height - - Body Mass Index - - documented in this encounter Progress Notes * Yuval Rodas MD - 09/09/2012 10:49 AM EST Diagnosis: Left breast mass. Reason for Evaluation: Patient sent for surgical opinion by Danielle Jerome A.P.R.N. for same. History of Present Illness: This patient is a 67-year-old woman who noted a self-palpated left breast mass in the lateral aspect of the left breast approximately two months ago. This is essentially unchanged and relatively asymptomatic. Image studies including a mammogram and ultrasound revealed a rather discrete somewhat innocuous appearing mass in the lateral aspect of the left breast approximately 3 to 4 cm in size corresponding to the palpable mass. The patient comes in today for further discussion regarding surgical management. She does have a prior history of a left breast biopsy a number of years ago for a benign cyst. She has had multiple orthopedic procedures in the past; otherwise, no significant medical history and denies any specific drug allergies. She is a nonsmoker. Examination: In general the patient is a well-developed, well-nourished female in no apparent distress. She is oriented x3. Vital signs are per the nursing notes. Examination of the head and neck: Pupils are equal and reactive. Sclerae are nonicteric. No gross abnormalities of ear, nose, or throat. Lymphatics: No palpable cervical, supraclavicular, or axillary adenopathy. Upper extremities have full range of motion without evidence of lymphedema. Examination of the breasts: The breasts are symmetrical. There are no obvious skin or nipple changes. In the lateral aspect of the left breast at approximately 3 o'clock there is a palpable soft demarcated mass which is freely movable. Assessment: Left breast mass as described. Plan: The patient will undergo an excisional biopsy. It is doubtful that this represents a breast cancer based on physical exam and imaging characteristics. However, this has been palpable and persistent and requires a diagnostic study. The patient is aware of potential complications of surgery including bleeding, infection, and seroma. She does not require any preadmission testing. documented in this encounter Plan of Treatment Upcoming Encounters Date Type Department Care Team (Late st Contact Info) Description 03/12/2024 1:00 PM EDT Office Visit Hematology/Oncology at [address] [phone] Sony Lyons MD [facility] [place] [address] Dottie Lira APRN [address] [place] [address] [place] [address] 03/19/2024 2:30 PM EDT Office Visit Dermatology at [place] [address] [place] [phone] Sam Johns MD [address], [place] [address] documented as of this encounter Visit Diagnoses Diagnosis Mass of breast, left- Primary Lump or mass in breast documented in this encounter Care Teams Storage Management Architect Relationship Specialty Start Date End Date Cristy Al APRN PCP - General 06/19/10 09/17/17 documented as of this encounter
--- OUTSIDE RECORDS SUMMARY | 2024-03-10 01:29 | XMS_ITS | Encounter Summary ---
[place] [address] Care Team Providers Care Dulser Name Role Phone [place]Ros mccollummary Awad APRN Primary Care Provider [phone] Encounter Details Date Type Department Care Team (Late st Contact Info) Description 09/28/2012 7:30 AM EST - 09/28/2012 8:45 AM EST Surgery [place] [address] Nain Rodas MD [facility] [place] [address] EXCISION CYST, FIBROADENOMA, ABBERANT BREAST TISSUE,DUCT LESION,NIPPLE OR AREOLAR LESION (LUMPECTOMY) (WRVU 5.92) Social History Tobacco Use Types Packs/Day Years [...] Rodas MD - 09/28/2012 8:02 AM EST [facility] [place] Patient Name: Eli Anderson : [id number] MR#: [id number] Case Date: 09/28/2012 Surgeon: Surgeon(s) and Role: [...] Operative Note Patient Name: Eli Anderson : [id number] MR#: [id number] Case Date: 09/28/2012 Surgeon: Surgeon(s) and Role: [...] PM EDT Office Visit Hematology/Oncology at [address] [phone] Sony Lyons MD [facility] [place] [address] Dottie Lira APRN [address] [place] [address] DR HEMATOLOGY AND ONCOLOGY [place], [place] [address] 03/19/2024 2:30 PM EDT Office Visit Dermatology at [place] [address] [facility] [place] [address] Sam Johns MD [address], [place] [address] documented as of this encounter Procedures Procedure [...] 1:45 PM EST) Surgical Pathology Report ? [facility] ? Provider: ?? NAIN RODAS Pt. Name: ?? ELI ANDERSON ? Acc #: ?[id number] ?Pt. ? Col Date: ?? 09/28/2012 ?/Sex: [...] glistening, lenz-yellow fibroadipose tissues. ? Sections/Process ing: ??Bottle Washer sections are submitted. ??The margin is ? marked with black ink. ?(R5) ??aje/PPS ? ---Clinical Information--- ? Specimen Submitted: ? A - Left breast mass ? Clinical History/Diagnosi s: ? Left breast mass ROBB ROQUEYOUCARRIE 09/28/2012 1:45 PM EST Nain Rodas MD PATHOLOGY/CYTOLOGY ORDERABLES ROBB GIRALDO * Specimen to Pathology (surgical or derm) (09/28/2012 7:51 AM EST) AP Specimen 09/28/2012 7:51 AM EST 09/28/2012 7:52 AM EST Narrative BRANDYARMANI ROQUEPARK - 09/28/2012 7:52 AM EST Specimen requisition ordered. ??Separate Pathology report to follow Nain Rodas MD PATHOLOGY/CYTOLOGY ORDERABLES ROBB GIRALDO documented in this encounter Visit [...] 7:15 AM EST 1,000 mLs 100 mL/hr lidocaine (PF) (XYLOCAINE) 10 mg/mL (1 %) injection ONCE PRN, Starting on Fri09/28/12 at 0750, Until Fri09/28/12 at 1339, Intra-Operative (Intra-Procedure), Routine Given 09/28/2012 7:50 AM EST 100 mg 19- Surgical Site documented in this encounter [...] Provid er: Kika Son RN - Comment: hung for OTC CLERK to start) Continuous Medication Order 09/26/2012 09/27/2012 [...] MD) documented in this encounter Care Teams Dulser Relationship Specialty Start Date End Date Cristy Al APRN PCP - General 06/19/10 09/17/17 documented as of this encounter
--- OUTSIDE RECORDS SUMMARY | 2024-03-10 01:29 | XMS_ITS | Encounter Summary ---
Author Organization [facility] [place] [address] Care Team Providers Care Family Support Coordinator Name Role Phone Wilma Nance MD Primary Care Provider [phone] Encounter Details Date Type Department Care Team (Late st Contact Info) Description 10/16/2006 Orders [place] [address] Sri Rogers MD [facility] [place] [address] Social History Tobacco Use Types Packs/Day Years [...] PM EDT Office Visit Hematology/Oncology at [address] [phone] Sony Lyons MD [facility] [place] [address] Dottie Lira APRN [address] [place] [address] DR HEMATOLOGY AND ONCOLOGY [place], [place] [address] 03/19/2024 2:30 PM EDT Office Visit Dermatology at [address] [place] [address] Sam Johns MD [address] [facility] [place] [address] documented as of this encounter Procedures Procedure Name Priority Date/Time Associated Diagnosis Comments SURGICAL PATHOLOGY REPORT Routine 10/16/2006 4:39 PM EDT documented in this encounter Results * Surgical Pathology Report (10/16/2006 4:39 PM EDT) Surgical Pathology Report [id number] ? Location: 4L The signing pathologist has (i) examined the relevant preparation(s) for the specimen(s) and (ii) rendered or confirmed the diagnosis(es). . ?Pathology Surgical Pathology Final Report Clinical Information Specimen Submitted: Left breast stereotactic biopsy Clinical History: New focal asymmetry left breast Clinical Diagnosis: Focal fibrosis, FA, IDC Gross Description Labeled/Fixative : ? Left breast lesion 1, formalin. Qty/Size/Weight: ?Fragments of lenz-yellow, lobular adipose tissue, ?aggregating up to 2.4 x 1.7 x 0.4 cm. Sections/Process ing: ??(T2) ??aje/PPS Microscopic Description Slides reviewed, microscopic description not recorded. Diagnosis Needle biopsies: ?Left breast. Diagnosis: ?Fibrocystic disease with benign ductal hyperplasia ? adenosis and clustered cysts Microcalcificati ons: ??Identified in adenosis CR-0 10/17/06 VAM 10/17/06 Verified by: ? Delvin Zacarias MD ?Pathologist ?(Electronic Signature) The attending pathologist whose signature appears on this report has reviewed all diagnostic slides and has edited the gross and/or microscopic portion of the report in rendering the final pathologic diagnosis. ROBB [facility] 10/16/2006 4:39 PM EDT Sri Rogers MD PATHOLOGY/CYTOLOGY ORDERABLES Performing Organization Address City/State/[facility] [place] Co de Phone Number [facility] documented in this encounter Visit Diagnoses Not on filedocumented in this encounter Care Teams Family Support Coordinator Relationship Specialty Start Date End Date Wilma Nance MD [address] [place] [address] PCP - General Family Medicine 09/18/17 documented as of this encounter
--- OUTSIDE RECORDS SUMMARY | 2024-03-10 01:29 | XMS_ITS | Encounter Summary ---
Author Organization [facility] Address [facility] [place] [address] Care Team Providers Care Rounding And Backing Machine Operator Name Role Phone Wilma Nance MD Primary Care Provider [phone] Encounter Details Date Type Department Care Team (Late st Contact Info) Description 06/11/2010 Interpretation Only Radiology [address] [place] [address] [place] [phone] Unknown None Social History Tobacco Use Types [...] PM EDT Office Visit Hematology/Oncology at [address] [phone] Soyn Lyons MD [facility] [place] [address] Dottie Lira APRN [address] [place] [address] DR HEMATOLOGY AND ONCOLOGY [place], [place] [id number] 03/19/2024 2:30 PM EDT Office Visit Dermatology at [address] [place] [phone] Sam Johns MD [address] [place] [address], FUAD A DERMATOLOGY [place], [place] [id number] documented as of this encounter Procedures Procedure Name Priority Date/Time Associated Diagnosis Comments XR FLUORO NO RAD <1HR - RADIOLOGY USE Routine 06/11/2010 7:10 AM EST documented in this encounter Results * XR Fluoro <1Hr - Radiology Use (06/11/2010 7:10 AM EST) Anatomical Region Laterality Modality N/A Radiographic Mishel ging 06/11/2010 7:10 AM EST Narrative 06/11/2010 7:10 AM EST APD Historical Result Principal Drill Runner Helper: ??ANGELITO Riojas C-ARM FLUOROSCOPY: CLINICAL HISTORY: ??Intraoperative examination. FINDINGS: Fluoroscopy was provided for Dr Abdalla. ??There was no radiologist in attendance. ??Three spot films at the L5 level were obtained. Fluoroscopy time 13.7 seconds. Angelito Bonilla MD ROB/kori [id number] CC: Procedure Note Unknown - 01/25/2019 APD Historical Result Principal Drill Runner Helper: ANGELITO Miramontes C-ARM FLUOROSCOPY: CLINICAL HISTORY: Intraoperative examination. FINDINGS: Fluoroscopy was provided for Dr Abdalla. There was no radiologist inattendance. Three spot films at the L5 level were obtained. Fluoroscopy time 13.7 seconds. Angelito Bonilla MD Micha [id number] CC: Unknown IMG FLUORO ORDERABLE S documented in this encounter Visit Diagnoses Not on filedocumented in this encounter Care Teams Rounding And Backing Machine Operator Relationship Specialty Start Date End Date Wilma Nance MD [address] [place] [address] PCP - General Family Medicine 09/18/17 documented as of this encounter
--- OUTSIDE RECORDS SUMMARY | 2024-03-10 01:29 | XMS_ITS | Encounter Summary ---
[place] [address] Care Team Providers Care Replanting Machine Crewman Name Role Phone Cristy Al APRN Primary Care Provider [phone] Reason for Visit * Reason Onset Date Comments Other 04/13/2012 Patient cancelle d today's appointment and informed that all of her records have been sent to another sleep center and she will no longer be coming here. Encounter Details Date Type Department Care Team (Late Contact Info) Description 04/13/2012 [place] [address] Serentiy Julien, [facility] Other (Patient cancelled today's appointment and informed that all of her records have been sent to another sleep center and she will no longer be coming here.) Social History Tobacco Use Types Packs/Day Years Used Date Smoking Tobacco: Former Sex and Gender Information Value Date Recorded Sex Assigned at Not on file Gender Identity Not on file Sexual Orientation Not on file documented as of this encounter Miscellaneous Notes * Telephone Encounter - Holly Nix - 04/22/2012 2:19 PM EDT . documented in this encounter Plan of Treatment Upcoming Encounters Date Type Department Care Team (Late Contact Info) Description 03/12/2024 1:00 PM EDT Office Visit Hematology/Oncology at [address] [address] Sony Lyons MD [facility] [place] [address] Dottie Lira APRN [address] [place] [address] DR H[place]OLOGY [place] [address] 03/19/2024 2:30 PM EDT Office Visit Dermatology at [place] [address] [place] [address] Sam Johns MD [address] [address], [place] [address] documented as of this encounter Visit Diagnoses Not on filedocumented in this encounter Care Teams Replanting Machine Crewman Relationship Specialty Start Date End Date Cristy Al APRN PCP - General 06/19/10 09/17/17 documented as of this encounter
[2024-03-10] MEDS: Barium Sulfate 2% W/V-Berry Smoothie 450 ML BTL PO ×2 (11:02→11:03)
[2024-03-10 11:20] LABS: Abs Immature Grans 0.05 10^3/uL (0.0-0.06); Absolute Basophil Count 0.07 10^3/uL (0.0-0.2); Absolute Eosinophil Count 0.25 10^3/uL (0.0-0.7); Absolute Lymphocyte Count 1.65 10^3/uL (1.2-3.4); Absolute Monocyte Count 0.46 10^3/uL (0.1-0.8); Absolute Neutrophil Count 3.22 10^3/uL (1.2-6.7); Basophils % 1.2 %; Eosinophils % 4.4 %; HCT 39.7 % (36.0-46.0); HGB 12.7 g/dL (11.2-15.7); Immature Grans % 0.9 %; Lymphocytes % 28.9 %; MCH 32.6 pg (27.0-33.0); MCV 102 fL (80-95); MPV 9.1 fL (8.0-11.0); Monocytes % 8.1 %; Neutrophils % 56.5 %; Platelet Count 183 10^3/uL (130-400); RBC 3.89 10^6/uL (3.93-5.22); RDW 13.2 % (11.7-14.6); RDW-SD 49.5 fL
[2024-03-10 11:50] LABS: ALT 22 U/L (14-59); AST 16 U/L (15-37); Albumin 3.5 g/dL (3.4-5.0); Alkaline Phosphatase 73 U/L (46-116); Anion Gap 9.1 mmol/L (3-11); BUN 17 mg/dL (7-18); Bilirubin, Total 0.37 mg/dL (0.2-1.0); CO2 26.9 mmol/L (21.0-32.0); Calcium 9.2 mg/dL (8.5-10.1); Chloride 107 mmol/L (98-107); Estimated GFR 56.95 (mL/min/1.73m2); Glucose 105 mg/dL (74-106); Potassium 4.3 mmol/L (3.5-5.1); Sodium 143 mmol/L (136-145); Total Protein 7.1 g/dL (6.4-8.2)
[2024-03-10] MEDS: Normal Saline - Diluent 50 ML VIAL IJ (13:29)
[2024-03-10] MEDS: Omnipaque 350 MG/ML 100 ML BTL IJ (13:30)
[2024-03-10 18:31] LABS: CEA 3.7 ng/mL (See Note)
== END 2024-03-10 01:44 ==
LOC: DI 01:25
PROVIDERS: PCP Family Medicine; Visit Provider Nurse Practitioner Family
DX: C18.7 Malignant neoplasm of sigmoid colon (principal)
CPT/HCPCS: 74177; 80053; 71260; 82378; 85025; J3490

== ENCOUNTER → 2024-04-20 13:45 | Outpatient (BNVA) | payer MEDICARE, BC, SELFPAY | PROVIDERS: PCP Family Medicine; Referring Provider Family Medicine; Visit Provider Podiatrist | DX: I73.89 Other specified peripheral vascular diseases (principal); L60.3 Nail dystrophy; M25.571 Pain in right ankle and joints of right foot; G47.61 Periodic limb movement disorder; Z72.0 Tobacco use; I87.2 Venous insufficiency (chronic) (peripheral); M19.072 Primary osteoarthritis, left ankle and foot; Z87.898 Personal history of other specified conditions; B35.1 Tinea unguium; R60.0 Localized edema; R20.8 Other disturbances of skin sensation; R09.89 Other specified symptoms and signs involving the circulatory and respiratory systems; R23.8 Other skin changes; L65.9 Nonscarring hair loss, unspecified | CPT/HCPCS: 11721 ==

== ENCOUNTER 2024-04-21 01:47 | Outpatient (CLI) | payer MEDICARE, BC, SELFPAY ==
--- NOTE | 2024-04-21 | DI.MAMMO_ITS ---
Exam(s) MAMMO SCREENING EXAM: MAMMO SCREENING CLINICAL HISTORY: Screening, Z12.31 TECHNIQUE: Bilateral full field digital CC and MLO mammographic images were obtained with 3D tomosyn thesis and utilizing computer aided detection (CAD). COMPARISON: Available for comparison. FINDINGS: Masses/Architectural Distortion: Stable left breast nodule. No new nodules are seen. No areas of ar chitectural distortion are present. There is a biopsy clip again seen in the left breast. Microcalcifications: No suspicious pleomorphic-type are seen. Skin Thickening/Nipple Retraction: None. IMPRESSION: 1. No significant interval change with no specific features of malignancy noted. 2. Unless there is more urgent need, screening mammography is recommended, as per [place] [employer] guidelines. BI-RADS Category 2 - Benign Findings Breast Density - Category B - Scattered areas of fibroglandular density Breast density category C or D implies that the patient has dense breast tissue. Dense breast tissue is very common and is not abnormal but dense breast tissue can make it harder to find cancer on a ma mmogram. Also, dense breast tissue may increase their breast cancer risk. This information about the result of the mammogram report was provided to the patient to raise their awareness. Use this report when you speak with the patient about their risks for breast cancer, which includes their family hist ory. At that time, you may recommend for more screening tests (Ultrasound or MRI) as they might be us eful based on their risk. A negative radiographic report should not delay biopsy if a dominant or clinically suspicious mass is present. Up to ten percent of cancers are not identified on mammography. A negative report may reinforce clinical impression. Adenosis and dense breasts may obscure an underlying neoplasm. False positive reports average 6 to 10%. Patient will receive a letter notifying them of these results.
== END 2024-04-21 02:07 ==
LOC: DI 01:47
PROVIDERS: PCP Family Medicine; Visit Provider Family Medicine
DX: Z12.31 Encounter for screening mammogram for malignant neoplasm of breast (principal)
CPT/HCPCS: 77063; 77067

== ENCOUNTER → 2024-06-14 13:20 | Outpatient (BNVA) | payer MEDICARE, BC, SELFPAY | PROVIDERS: PCP Family Medicine; Visit Provider Psychiatry & Neurology Neurology | DX: M96.1 Postlaminectomy syndrome, not elsewhere classified (principal); G89.29 Other chronic pain; G62.9 Polyneuropathy, unspecified; R26.0 Ataxic gait | CPT/HCPCS: 99214 ==

== ENCOUNTER → 2024-08-04 10:52 | Outpatient (BNVA) | payer MEDICARE, BC, SELFPAY | PROVIDERS: PCP Family Medicine; Visit Provider Nurse Practitioner Gerontology | DX: N39.46 Mixed incontinence (principal); E66.01 Morbid (severe) obesity due to excess calories; Z87.440 Personal history of urinary (tract) infections | CPT/HCPCS: 99214 ==

== ENCOUNTER → 2024-08-11 15:15 | Outpatient (BNVA) | payer MEDICARE, BC, SELFPAY | PROVIDERS: PCP Family Medicine; Referring Provider Family Medicine; Visit Provider Podiatrist | DX: L60.3 Nail dystrophy (principal); B35.1 Tinea unguium; L84 Corns and callosities; M79.671 Pain in right foot; M79.672 Pain in left foot; N18.9 Chronic kidney disease, unspecified; I87.2 Venous insufficiency (chronic) (peripheral); G25.81 Restless legs syndrome; G62.9 Polyneuropathy, unspecified; R60.0 Localized edema; Z72.0 Tobacco use; R09.89 Other specified symptoms and signs involving the circulatory and respiratory systems; L65.9 Nonscarring hair loss, unspecified; R20.8 Other disturbances of skin sensation; R23.8 Other skin changes; L53.8 Other specified erythematous conditions; I73.89 Other specified peripheral vascular diseases | CPT/HCPCS: 11056; 11721 ==

== ENCOUNTER 2024-08-12 20:06 | Outpatient (REF) | payer MEDICARE, BC, SELFPAY ==
[2024-08-12 19:12] LABS: Abs Immature Grans 0.03 10^3/uL (0.0-0.06); Absolute Basophil Count 0.05 10^3/uL (0.0-0.2); Absolute Lymphocyte Count 2.11 10^3/uL (1.2-3.4); Absolute Monocyte Count 0.46 10^3/uL (0.1-0.8); Absolute Neutrophil Count 3.24 10^3/uL (1.2-6.7); Basophils % 0.8 %; Eosinophils % 3.3 %; HCT 38.5 % (36.0-46.0); HGB 12.4 g/dL (11.2-15.7); Immature Grans % 0.5 %; Lymphocytes % 34.6 %; MCHC 32.2 % (32.0-36.0); MCV 99 fL (80-95); MPV 9.9 fL (8.0-11.0); Monocytes % 7.6 %; Neutrophils % 53.2 %; Platelet Count 195 10^3/uL (130-400); RBC 3.88 10^6/uL (3.93-5.22); RDW 13.2 % (11.7-14.6); RDW-SD 47.6 fL; WBC 6.09 10^3/uL (4.4-10.8)
[2024-08-12 19:45] LABS: ALT 25 U/L (14-59); AST 24 U/L (15-37); Albumin 3.8 g/dL (3.4-5.0); Alkaline Phosphatase 79 U/L (46-116); Anion Gap 7.6 mmol/L (3-11); BUN 17 mg/dL (7-18); Bilirubin, Total 0.41 mg/dL (0.2-1.0); CO2 28.4 mmol/L (21.0-32.0); CREATININE 0.9 mg/dL (0.55-1.02); Calcium 9.9 mg/dL (8.5-10.1); Chloride 105 mmol/L (98-107); Estimated GFR 64.23 (mL/min/1.73m2); Glucose 87 mg/dL (74-106); Potassium 4.5 mmol/L (3.5-5.1); Sodium 141 mmol/L (136-145); Total Protein 7.2 g/dL (6.4-8.2)
[2024-08-12 19:47] LABS: Hemoglobin A1C 5.3 % (<5.7)
--- OUTSIDE RECORDS SUMMARY | 2024-08-12 20:12 | XMS_ITS | Encounter Summary ---
Author Organization [facility] Address [address] [place] [address] Care Team Providers Care Threat Analyst Name Role Phone Cristy Al NP Primary Care Provider [phone] Encounter Details Date Type Department Care Team (Late st Contact Info) Description 10/16/2023 Lab Requisition [facility] Pathology & Laboratory Medicine - [address] [address] Asher [place] MD [address] [place] [address], [address] [place], [place] [id number] Encounter for screening for malignant neoplasm of colon Social History Tobacco Use Types Packs/Day Years Used Date Smoking Tobacco: Never Assessed Interpersonal Safety Answer Date Record ed Physically Hurt Never 02/27/2020 Verbally Threaten Not on file 02/27/2020 Comments Unknown Sex and Gender Information Value Date Recorded Sex Assigned at Not on file Legal Sex Female 18:12 EST Gender Identity Not on file Sexual Orientation [...] explore management options, if applicable. 10/21/2023 13:19 [facility] Final Diagnosis A. DUODENUM, BIOPSY: [...] Deeper levels have been examined. 10/21/2023 13:19 [facility] Diagnosis Comment Timber Selector slides of this case were reviewed at the intradepartmental consultation conference. 10/21/2023 13:19 [facility] Attestation By the signature below, the attending physician certifies that they have 1) personally conducted a gross and/or microscopic examination of the described specimen(s), and/or personally interpreted the results of laboratory testing of the described specimen(s), and 2) personally rendered or confirmed the above diagnosis. 10/21/2023 13:19 [facility] at 1319 Clinical History Globus sensation, dyspepsia, history colon polyps, colon resection, colon polyps, diverticulosis; clinical diagnosis code: Z12.11 10/21/2023 13:19 [facility] Gross Description A. Received in [...] SEJAL ESPINOZA(ASCP) 10/17/2023 7:40 10/21/2023 13:19 T [facility] Performing Lab [facility] 10/21/2023 13:19 T [facility] Scanned Images 10/21/2023 13:19 [facility] Tissue COLON STRUCTURE / Unknown [...] Unknown 10/16/2023 11:08 EDT 10/16/2023 16:14 EDT us Asher [place] MD PATHOLOGY ORDERABLES Final Resu lt [facility] [address] [place] [address] documented in this encounter Visit Diagnoses Diagnosis Encounter for screening for malignant neoplasm of colon Special screening for malignant neoplasms, colon documented in this encounter Care Teams Threat Analyst Relationship Specialty Start Date End Date Cristy Al NP [facility] [address] [place] [address] PCP - General 02/21/12 documented as of this encounter
--- OUTSIDE RECORDS SUMMARY | 2024-08-12 20:12 | XMS_ITS | Referral Summary ---
Author Organization [facility] Address [address] [place] [address] Care Team Providers Care Sales Administration Specialist Name Role Phone KingmanCristy mccollum Delmi NOE Primary Care Provider [phone] Social History Tobacco Use Types Packs/Day Years [...] file Plan of Treatment Not on file Insurance [facility] [place] MED[place] Care Teams Sales Administration Specialist Relationship Specialty Start Date End Date Cristy Al NP [facility] [address] [place] [address] PCP - General 02/21/12
--- OUTSIDE RECORDS SUMMARY | 2024-08-12 20:12 | XMS_ITS ---
Author Organization Unknown Address [address] [place] [phone] Phone Care Team Providers Care Medical Microbiologist Name Role Phone DAREN Mathews Attending Unavailable Social History Type Status Start Date End Date Code Code Syst em Smoking History Current every day smoker [id number] SNOMED CT Smoking History Unknown if ever smoked [id number] Sex Female Hospital Discharge Instructions [...]
--- OUTSIDE RECORDS SUMMARY | 2024-08-12 20:12 | XMS_ITS ---
Author Organization Unknown Address [address] [place] [phone] Phone Care Team Providers Care Tuberculosis Specialist Name Role Phone MIKY MALAGON Attending Unavailable DAREN Mathews Primary Unavailable Social History Type Status Start Date End Date Code Code Syst em Smoking History Current every day smoker [id number] SNOMED CT Smoking History Unknown if ever smoked [id number] Sex Female Hospital Discharge Instructions [...]
--- OUTSIDE RECORDS SUMMARY | 2024-08-12 20:12 | XMS_ITS ---
Author Organization Unknown Address [address] [place] [phone] Phone Care Team Providers Care Patient Svcs Mgr Name Role Phone WESTIMALTAF Mathews Attending Unavailable [...] D Saturday, July 03, 2021 5:10:15 PM [id number] Electronically Reviewed and Signed By: NETTIE ROSENTHAL MD 07/04/21 13:10 Copy for: [facility] Social History Type Status Start Date End Date Code Code Syst em Smoking History Current every day smoker [id number] SNOMED CT Smoking History Unknown if ever smoked [address] Sex Female Hospital Discharge Instructions [...]
--- OUTSIDE RECORDS SUMMARY | 2024-08-12 20:12 | XMS_ITS | Encounter Summary ---
Author Organization [facility] Address [address] [place] [address] Care Team Providers Care Molder Wax Ball Name Role Phone Cristy Al NP Primary Care Provider [phone] Encounter Details Date Type Department Care Team (Late st Contact Info) Description 05/16/2023 Lab Requisition [facility] Pathology & Laboratory Medicine - [address] [address] Outr Resulting Lab, Provider Social History Tobacco [...] 3.2 See Note ng/mL 05/16/2023 19:29 EDT [facility] Comment: % Distribution of [...] Unknown 05/16/2023 10:05 EDT 05/16/2023 17:54 EDT us Provider Outr Resulting Lab CHEMISTRY & BLOOD GA S ORDERABLES Final Result [facility] [address] [place] [address] documented in this encounter Visit Diagnoses Not on filedocumented in this encounter Care Teams Molder Wax Ball Relationship Specialty Start Date End Date Cristy Al NP [facility] [address] [place] [address] PCP - General 02/21/12 documented as of this encounter
--- OUTSIDE RECORDS SUMMARY | 2024-08-12 20:12 | XMS_ITS | Encounter Summary ---
Author Organization [facility] Address [address] [place] [address] Care Team Providers Care Slip Caster Name Role Phone MikaelaCristy KUSUM Primary Care Provider [phone] Encounter Details Date Type Department Care Team (Late st Contact Info) Description 01/01/2024 Lab Requisition [facility] Pathology & Laboratory Medicine - [address] [address] Outr Resulting Lab, Provider Social History Tobacco [...] LUIS Interpretation Positive(A) Negative 01/02/2024 12:49 EDT [facility] Comment: For titers greater than [...] Pattern 1 1:160 Homogeneous 01/02/2024 12:49 EDT [facility] Blood VENOUS BLOOD / Unknown 01/01/2024 14:14 EDT 01/01/2024 21:22 EDT Narrative [facility] - 01/02/2024 12:49 EDT Results were obtained with the [employer] NOVA Lite HEp-2 LUIS Kit by indirect immunofluorescence. us Provider Outr Resulting Lab IMMUNOLOGY AND SEROL OGY ORDERABLES Final Result [facility] [address] [place], [place] [phone] documented in this encounter Visit Diagnoses Not on filedocumented in this encounter Care Teams Slip Caster Relationship Specialty Start Date End Date Cristy Al NP [facility] [address] [place] [address] PCP - General 02/21/12 documented as of this encounter
--- OUTSIDE RECORDS SUMMARY | 2024-08-12 20:12 | XMS_ITS | Encounter Summary ---
Author Organization [facility] Address [address] [place] [address] Care Team Providers Care Slab Puller Name Role Phone Cristy Al NP Primary Care Provider [phone] Encounter Details Date Type Department Care Team (Late st Contact Info) Description 03/10/[address] [facility] Pathology & Laboratory Medicine - [address] [address] Outr Resulting Lab, Provider Social History Tobacco [...] Priority Date/Time Associated Diagnosis Comments CEA Routine 03/10/2024 11:10 EDT documented in this encounter Results * CEA (03/10/2024 11:10 EDT) CEA 3.7 See Note ng/mL 03/10/2024 18:26 EDT [facility] Comment: % Distribution [...] used interchangeably. Blood VENOUS BLOOD / Unknown 03/10/2024 11:10 EDT 03/10/2024 17:28 EDT us Provider Outr Resulting Lab CHEMISTRY & BLOOD GA S ORDERABLES Final Result [facility] [address] [place] [address] documented in this encounter Visit Diagnoses Not on filedocumented in this encounter Care Teams Slab Puller Relationship Specialty Start Date End Date Cristy Al NP [facility] [address] [place], [place] [address] PCP - General 02/21/12 documented as of this encounter
--- OUTSIDE RECORDS SUMMARY | 2024-08-12 20:12 | XMS_ITS | Encounter Summary ---
Author Organization [facility] Address [address] [place] [address] Care Team Providers Care Talent Acquisition Lead Name Role Phone Mikaela Cristymary Awad NP Primary Care Provider [phone] Encounter Details Date Type Department Care Team (Late st Contact Info) Description 10/01/2023 Lab Requisition [facility] Pathology & Laboratory Medicine - [facility] [address] [place], [place] [address] Outr Resulting Lab, Provider Social History Tobacco [...] Abelardo Ford MD 10/03/2023 1503 10/03/2023 15:48 [facility] Blood VENOUS BLOOD / Unknown 10/01/2023 15:05 EST 10/01/2023 21:20 EST us Provider Outr Resulting Lab CHEMISTRY & BLOOD GA S ORDERABLES Final Result [facility] [address] [place] [address] * (ABNORMAL) SPEP, INCLUDES QUANTITATION OF MONOCLONAL SPIKE PERFORMABLE (10/01/2023 15:05 EST) Albumin % 57.0 55.8 - 66.1 % 10/03/2023 15:45 [facility] Albumin g/dL 3.7 3.6 - 5.2 g/dL 10/03/2023 15:45 [facility] Alpha-1 % 4.8 2.9 - 4.9 % 10/03/2023 15:45 [facility] Alpha-1 g/dL 0.30 0.15 - 0.40 g/dL 10/03/2023 15:45 [facility] Alpha-2 % 12.5(H) 7.1 - 11.8 % 10/03/2023 15:45 [facility] Alpha-2 g/dL 0.80 0.50 - 1.00 g/dL 10/03/2023 15:45 [facility] Beta % 12.6 8.4 - 13.1 % 10/03/2023 15:45 [facility] Beta g/dL 0.80 0.60 - 1.20 g/dL 10/03/2023 15:45 [facility] Gamma % 13.1 11.1 - 18.8 % 10/03/2023 15:45 [facility] Gamma g/dL 0.90 0.60 - 1.60 g/dL 10/03/2023 15:45 [facility] SPEP Comment Suspicious pattern seen on protein electrophoresis, immunotyping added by reflex. 10/03/2023 15:45 EST [facility] Comment: Monoclonal protein present, too small to quantitate. See scanned/supplementary report. Total Protein 6.5 6.3 - 8.2 g/dL 10/03/2023 15:45 EST [facility] Blood VENOUS BLOOD / Unknown 10/01/2023 15:05 EST 10/01/2023 21:20 EST us Provider Outr Resulting Lab CHEMISTRY & BLOOD GA S ORDERABLES Final Result Performing Organization Address [facility] Co de Phone Number [facility] [address] [place], [place] [address] * PROTEIN, TOTAL (10/01/2023 15:05 EST) Blood VENOUS BLOOD / Unknown 10/01/2023 15:05 EST 10/01/2023 21:20 EST us Provider Outr Resulting Lab CHEMISTRY & BLOOD GA S ORDERABLES Final Result Performing Organization Address City/[facility] Co de Phone Number [facility] [address] [place], [place] [address] documented in this encounter Visit Diagnoses Not on filedocumented in this encounter Care Teams Talent Acquisition Lead Relationship Specialty Start Date End Date Cristy Al NP [facility] [address] [place] [address] PCP - General 02/21/12 documented as of this encounter
--- OUTSIDE RECORDS SUMMARY | 2024-08-12 20:12 | XMS_ITS | Encounter Summary ---
Author Organization [facility] Address [address] [place] [address] Care Team Providers Care Pan Cleaner Name Role Phone Cristy Al NP Primary Care Provider [phone] Encounter Details Date Type Department Care Team (Late st Contact Info) Description 11/14/2023 Lab Requisition [facility] Pathology & Laboratory Medicine - [address] [address] Outr Resulting Lab, Provider Social History Tobacco [...] 3.2 See Note ng/mL 11/14/2023 18:14 EDT [facility] Comment: % Distribution [...] Unknown 11/14/2023 10:58 EDT 11/14/2023 17:20 EDT us Provider Outr Resulting Lab CHEMISTRY & BLOOD GA S ORDERABLES Final Result [facility] [address] [place] [address] documented in this encounter Visit Diagnoses Not on filedocumented in this encounter Care Teams Pan Cleaner Relationship Specialty Start Date End Date Cristy Al NP [facility] [address] [place], [place] [address] PCP - General 02/21/12 documented as of this encounter
--- OUTSIDE RECORDS SUMMARY | 2024-08-12 20:12 | XMS_ITS | Clinical Summary ---
Author Organization [facility] Address [address] [place] [address] Care Team Providers Care Track Mechanic Name Role Phone Mikaela Cristymary Awad NP Primary Care Provider [phone] Social History Tobacco Use Types Packs/Day Years [...] Health Maintenance Due Date Last Done Comments Fall Risk Screening 2008 RSV Immunization ( o r 60+ Years) (1 - 1-dose 75+ series) 2018 COVID-19 Vaccine ( season) 2024 Insurance [facility] [place] Care Teams Track Mechanic Relationship Specialty Start Date End Date Cristy Al NP [facility] [address] [place] [address] PCP - General 02/21/12
--- OUTSIDE RECORDS SUMMARY | 2024-08-12 20:13 | XMS_ITS | Encounter Summary ---
Author Organization [facility] Address [address] [place] [address] Care Team Providers Care Mission Manager Name Role Phone Unavailable Primary Care Provider Unavailabl e Encounter Details Date Type Department Care Team (Late st Contact Info) Description 06/11/2005 Results Only [facility] [address] [place] [address] Cristy Son, LICSW [facility] [address] [place] [address] Social History Tobacco Use Types Packs/Day Years Used Date Smoking Tobacco: Never Assessed Comments Unknown Sex and Gender Information Value [...] ? SHILOH ANDERSON ? Accession #: ? [id number] : ? 1945 (Age: 59) ??F ?Collect Date: ? 06/11/2005 Location: ? [facility] ? Receive Date: ? 06/13/2005 Provider: ?CRISTY SON LICSW Copy to: ? Specimen/Source: ?ThinPrep Pap Test, Cervix/Endocervix, processed on Dimple DoughPrep Imaging System, with manual evaluation Last Menstrual Period: ? SPECIMEN ADEQUACY ? Satisfactory for Evaluation - transformation zone component absent GENERAL CATEGORIZATION ? Negative for Intraepithelial Lesion or Malignancy ? Document reviewed and electronically signed by: ? ADILIA Olivares(ASCP) ? Report Date: ??06/17/2005 11:12 End of Report [facility] 06/11/2005 06/13/2005 us Cristy Son LICSW PATHOLOGY ORDERABLES Final Resu lt [facility] [address] [place] [address] documented in this encounter Visit Diagnoses Not on filedocumented in this encounter
--- OUTSIDE RECORDS SUMMARY | 2024-08-12 20:13 | XMS_ITS | Encounter Summary ---
[place] [address] Care Team Providers Care Fbi Profiler Name Role Phone Wilma Nance MD Primary Care Provider [phone] Encounter Details Date Type Department Care Team (Late st Contact Info) Description 06/11/2023 1:30 PM EST Office Visit Hematology/Oncology at [address] [phone] Dottie Lira [address] [place] [address] Malignant neoplasm of sigmoid colon; [...] this encounter Progress Notes * Dottie Lira, ATTENDANCE SECRETARY - 06/11/2023 1:30 PM EST Subjective Patient [...] Category: pT3 pN Category: pN0 [facility]) A biopsy was performed and read elsewhere and reviewed: [id number] part B Additional Findings Additional Findings: None [...] surgery 22. Genetic testing 04/2023 - Result: [facility] CancerNext-Expanded Panel showed no mutation was detected. [...] NF1, NF2, NTHL1, PALB2, PHOX2B, PMS2, POT1, WTNWC4Y, PTCH1, PTEN, RAD51C, RAD51D, RB1, RECQL, RET, SDHA, SDHAF2, SDHB, SDHC, SDHD, SMAD4, SMARCA4, SMARCB1, SMARCE1, STK11, SUFU, [id number], TP53, TSC1, TSC2, VHL and XRCC2 (sequencing [...] knee. She is followed Dr. Abdalla in [place]. Her incision is well healed. Her bowels are better than they were prior to the surgery. She goes once per day, no constipation or diarrhea, no BRBPR. She has felt less fatigued as well. Her appetite is good. Her weight continues to trend downward, intentionally. Soc Hx: Lives in [place], [place] Tob - Current (quits and restarts frequently) - she plans to try quitting again with the help of nicotine replacement and counseling. 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; [...] Care Team (Late st Contact Info) Description 09/16/2024 2:30 PM EST Office Visit Hematology/Oncology at [address] [phone] Sony Lyons MD [facility] [place] [address] Dottie Lira APRN [address] [place] [address] DR [place] [address] 06/02/2025 2:00 PM EST Office Visit Dermatology at [address] [place] [phone] Sam Johns MD [address] [facility], [place] [address] documented as of this encounter Visit Diagnoses Diagnosis Malignant neoplasm of sigmoid colon Abnormal CT of the abdomen Nonspecific (abnormal) findings on radiological and other examination of abdominal area, including retroperitoneum documented in this encounter Care Teams Fbi Profiler Relationship Specialty Start Date End Date Wilma Nance MD [address] [place] [address] PCP - General Family Medicine 09/18/17 05/09/24 documented as of this encounter
--- OUTSIDE RECORDS SUMMARY | 2024-08-12 20:13 | XMS_ITS | Encounter Summary ---
[place] [address] Care Team Providers Care Material Processor Name Role Phone Wilma Nance MD Primary Care Provider [phone] Encounter Details Date Type Department Care Team (Late st Contact Info) Description 08/04/2024 [place] [phone] Alysa Buck Social History Tobacco Use Types Packs/Day Years [...] encounter Miscellaneous Notes * Telephone Encounter - Alysa Buck - 08/04/2024 10:51 AM EST LM asking pt to return call to schedule a Smoking Cessation appmt documented in this encounter Plan of Treatment Upcoming Encounters Date Type Department Care Team (Late st Contact Info) Description 09/16/2024 2:30 PM EST Office Visit Hematology/Oncology at [address] [phone] Sony Lyons MD [facility] [place] [address] Dottie Lira APRN [address] [place] [address] [place] [address] 06/02/2025 2:00 PM EST Office Visit Dermatology at [place] [address] [place] [phone] Sam Johns MD [address], [place] [address] documented as of this encounter Visit Diagnoses Not on filedocumented in this encounter Care Teams Material Processor Relationship Specialty Start Date End Date Wilma Nance MD [address] [place] [address] PCP - General Family Medicine 05/10/24 documented as of this encounter
--- OUTSIDE RECORDS SUMMARY | 2024-08-12 20:13 | XMS_ITS | Encounter Summary ---
Author Organization [facility] Address [address] [place] [address] Care Team Providers Care Legal Director Name Role Phone Unavailable Primary Care Provider Unavailabl e Encounter Details Date Type Department Care Team (Late st Contact Info) Description 05/09/2011 Results Only [facility] Laboratory Services - [facility] ([facility] [address] [place], [place] [id number] Cristy Son, KUSUM [facility] [address] [place] [address] Social History Tobacco Use Types [...] ? SHILOH ANDERSON ? Accession #: ? [id number] : ? 1945 (Age: 65) ??F ?Collect Date: ? 05/09/2011 Location: ? [facility] ? Receive Date: ? 05/10/2011 Provider: ?CRISTY SON SHORT ORDER FRY COOK Copy to: ? Specimen/Source: ?Pap Test, Cervix/Endocervix, ThinPrep Imaging System with manual evaluation Last Menstrual Period: ? years ? SPECIMEN ADEQUACY ? Satisfactory for Evaluation - transformation zone component absent GENERAL CATEGORIZATION ? Negative for Intraepithelial Lesion or Malignancy ? Document reviewed and electronically signed by: ? Audi Patel, CT(ASCP) ? Report Date: ??05/16/2011 17:11 End of Report [facility] 05/09/2011 05/10/2011 us Cristy Son SHORT ORDER FRY COOK PATHOLOGY ORDERABLES Final Resu lt [facility] [address] [place] [address] documented in this encounter Visit Diagnoses Not on filedocumented in this encounter
--- OUTSIDE RECORDS SUMMARY | 2024-08-12 20:13 | XMS_ITS | Encounter Summary ---
Author Organization [facility] [place] [address] Care Team Providers Care Braiding Operator Name Role Phone Wilma Nance MD Primary Care Provider [phone] Encounter Details Date Type Department Care Team (Latest Contact Info) Description 07/11/2023 4:00 PM EST TH Visit (TeleHealth) Hematology/Oncology at [address] [phone] Sony Lyons MD [facility] [place] [address] Malignant neoplasm of transverse colon [...] Category: pT3 pN Category: pN0 Prior Biopsy ([facility] Standard 2.1) A biopsy was performed and read elsewhere and reviewed: [id number] part B Additional Findings Additional Findings: None [...] surgery 22. Genetic testing 2022 - Result: [facility]'s CancerNext-Expanded Panel showed no mutation was detected. [...] NF1, NF2, NTHL1, PALB2, PHOX2B, PMS2, POT1, PNUPQ7F, PTCH1, PTEN, RAD51C, RAD51D, RB1, RECQL, RET, SDHA, SDHAF2, SDHB, SDHC, SDHD, SMAD4, SMARCA4, SMARCB1, SMARCE1, STK11, SUFU, [id number], TP53, TSC1, TSC2, VHL and XRCC2 (sequencing [...] knee. She is followed Dr. Abdalla in [place]. Her incision is well healed. Her bowels are better than they were prior to the surgery. She goes 1-2 times per day. She has felt less fa tigued as well. Her appetite is good. She has lost 30-40#, intentionally. Soc Hx: Lives in [place], [place] Tob - Current (quits and restarts frequently) - she plans to try quitting again with the help of nicotine replacement and counseling. 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; [...] 2:30 PM EST Office Visit Hematology/Oncology at [address] [phone] Sony Lyons MD [facility] [place] [address] Dottie Lira [employer] [address] [place] [address] [place] [address] 06/02/2025 2:00 PM EST Office Visit Dermatology at [address] [place] [address] Sam Johns MD [address] [place] [address], [place] [address] documented as of this encounter Visit Diagnoses Diagnosis Malignant neoplasm of transverse colon documented in this encounter Care Teams Braiding Operator Relationship Specialty Start Date End Date Wilma Nance MD [address] [place] [address] PCP - General Family Medicine 09/18/17 05/09/24 documented as of this encounter
--- OUTSIDE RECORDS SUMMARY | 2024-08-12 20:13 | XMS_ITS | Encounter Summary ---
Author Organization [facility] [place] [address] Care Team Providers Care Tree Warden Name Role Phone Wilma Nance MD Primary Care Provider Encounter Details Date Type Department Care Team (Late Contact Info) Description 10/01/2023 Ancillary Procedure Radiology Library at [facility] [place] [phone] Wilma Nance MD [address] [place] [phone] Social History Tobacco Use Types Packs/Day Years [...] Department Care Team (Late Contact Info) Description 09/16/2024 2:30 PM EST Office Visit Hematology/Oncology at [address] [phone] Sony Lyons MD [facility] [place] [address] Dottie Lira APRN [address] [place] [address] [place] [address] 06/02/2025 2:00 PM EST Office Visit Dermatology at [place] [address] [place] [address] Sam Johns MD [address], [place] [address] documented as of this encounter Procedures Procedure Name Priority Date/Time Associated Diagnosis Comments FILM LIBRARY STORAGE ONLY MR HEAD AND SPINE Routine 10/01/2023 12:00 AM EST documented in this encounter Results * Film Library- Storage Only MR Head and Spine (10/01/2023 12:00 AM EST) Narrative [facility] - 02/10/2024 12:21 PM EDT This exam is auto-finalizing. It's purpose is for storage only. Wilma Nance MD IMG FILM LIBRARY ORD ERABLES [place], [place] documented in this encounter Visit Diagnoses Not on filedocumented in this encounter Care Teams Tree Warden Relationship Specialty Start Date End Date Wilma Nance MD [address] [place] [address] PCP - General Family Medicine 09/18/17 05/09/24 documented as of this encounter
--- OUTSIDE RECORDS SUMMARY | 2024-08-12 20:13 | XMS_ITS | Encounter Summary ---
Author Organization [facility] [place] [address] Care Team Providers Care Cushion Assembler Name Role Phone Wilma Nance MD Primary Care Provider [phone] Encounter Details Date Type Department Care Team (Late Contact Info) Description 07/30/2024 Orders [place] [phone] Tami Craig MD [facility] [place] [address] ILD (interstitial lung disease) (Primary Dx) Social History Tobacco Use Types [...] 2:30 PM EST Office Visit Hematology/Oncology at [address] [phone] Sony Lyons MD [facility] [place] [address] Dottie Lira APRN [address] [place] [address] DR HEMATOLOGY [place] [address] 06/02/2025 2:00 PM EST Office Visit Dermatology at [place] [address] [place] [phone] Sam Johns MD [address] [address], [place] [address] documented as of this encounter Results * Common Pulmonary Function Test (08/02/2024 3:34 PM EST) FVC Actual Pre-BD 1.93 L COMPAS PFT FVC Pre-BD % of Predicted 80 % COMPAS PFT FVC Predicted 2.41 L COMPAS PFT FVC Lower Limits of Normal 1.68 L COMPAS PFT FVC Pre-BD Z-Score -1.07 COMPAS PFT FEV1 Actual Pre-BD 1.25 L COMPAS PFT FEV1 Pre-BD % of Predicted 68 % COMPAS PFT FEV1 Predicted 1.83 L COMPAS PFT FEV1 Lower Limits of Normal 1.28 L COMPAS PFT FEV1 Pre-BD Z-Score -1.72 COMPAS PFT FEV1 / FVC Actual Pre-BD 65 % COMPAS PFT FEV1/FVC Pre-BD Z-Score -1.35 COMPAS PFT [id number] Actual Pre-BD 0.64 % COMPAS PFT [id number] Predicted 1.49 % COMPAS PFT [id number] Pre-BD % of Predicted 43 % COMPAS PFT DHV13-59 Pre-BD Z-Score -1.58 COMPAS PFT DLCO Hb Actual Pre-BD 10.78 mL/min/mmHg COMPAS PFT DLCO Hb Pre-BD % of Predicted 61 % COMPAS PFT DLCO Hb Predicted 17.7 mL/min/mmHg COMPAS PFT DLCO Hb Pre-BD Z-Score -2.62 COMPAS PFT DLCO UNC ACT PRE-BD 10.97 mL/min/mmHg COMPAS PFT DLCO UNC PRE-BD % of PRED 62 % COMPAS PFT DLCO UNC Predicted 17.7 mL/min/mmHg COMPAS PFT DLCO UNC PRE-BD Z-SCORE -2.53 COMPAS PFT Narrative COMPAS PFT - 08/02/2024 3:34 PM EST FINDINGS: FEV1 is reduced, FVC and FEV1/VC are normal. Diffusion capacity not adjusted for hemoglobin is reduced. IMPRESSION: Spirometry with non-specific isolated reduction in FEV1. Mild reduction in diffusing capacity (DLCO > 60% and < lower limit of normal). Isolated reduced DLCO suggests the possibility of disease of the pulmonary vasculature, early emphysema, early interstitial disease, anemia, or carboxyhemoglobinemia/heavy tobacco smoking. Normal resting oxygen saturation. Desaturation with exertion requiring 2LPM oxygen to maintain normal saturation. Procedure Note Shahab Dale MD - 08/03/2024 FINDINGS: FEV1 is reduced, FVC and FEV1/VC are normal. Diffusion capacitynot adjusted for hemoglobin is reduced. IMPRESSION: Spirometry with non-specific isolated reduction in FEV1. Mildreduction in diffusing capacity (DLCO > 60% and < lower limit of normal). Isolatedreduced DLCO suggests the possibility of disease of the pulmonary vasculature, early emphysema,early interstitial disease, anemia, or carboxyhemoglobinemia/heavy tobacco smoking. Normal resting oxygen saturation. Desaturation with exertion [id number] oxygen to maintain normal saturation. Bear Avila MD PFT ORDERABLES COMPAS PFT documented in this encounter Visit Diagnoses Diagnosis ILD (interstitial lung disease)- Primary Postinflammatory pulmonary fibrosis ILD (interstitial lung disease) Postinflammatory pulmonary fibrosis documented in this encounter Care Teams Cushion Assembler Relationship Specialty Start Date End Date Wilma Nance MD [address] [place] [address] PCP - General Family Medicine 05/10/24 documented as of this encounter
--- OUTSIDE RECORDS SUMMARY | 2024-08-12 20:13 | XMS_ITS | Encounter Summary ---
Author Organization [facility] [place] [address] Care Team Providers Care Navy Material Inspector Name Role Phone Wilma Nance MD Primary Care Provider [phone] Encounter Details Date Type Department Care Team (Late Contact Info) Description 05/16/2023 Ancillary Procedure Radiology Library at [facility] [place] [phone] Wilma Nance MD [address] [place] [address] Social History Tobacco Use Types Packs/Day Years [...] PM EST Office Visit Hematology/Oncology at [address] [phone] Sony Lyons MD [facility] [place] [address] Dottie Lira APRN [address] [place] [address] [place] [address] 06/02/2025 2:00 PM EST Office Visit Dermatology at [place] [address] [place] [address] Sam Johns MD [address], [place] [address] documented as of this encounter Procedures Procedure Name Priority Date/Time Associated Diagnosis Comments FILM LIBRARY STORAGE ONLY CT CHEST Routine 05/16/2023 12:00 AM EDT documented in this encounter Results * Film Library- Storage Only CT Chest (05/16/2023 12:00 AM EDT) Narrative RAD - 05/19/2023 9:09 AM EDT This exam is auto-finalizing. It's purpose is for storage only. Wilma Nance MD IMG FILM LIBRARY ORD ERABLES Performing Organization Address City/State/[facility] Co de Phone Number [place], [place] documented in this encounter Visit Diagnoses Not on filedocumented in this encounter Care Teams Navy Material Inspector Relationship Specialty Start Date End Date Wilma Nance MD [address] [place] [address] PCP - General Family Medicine 09/18/17 05/09/24 documented as of this encounter
--- OUTSIDE RECORDS SUMMARY | 2024-08-12 20:13 | XMS_ITS | Encounter Summary ---
Author Organization [facility] Address [address] [place] [address] Care Team Providers Care International Logistics Coordinator Name Role Phone LemhiCristy mccollum KUSUM Primary Care Provider [phone] Encounter Details Date Type Department Care Team (Late st Contact Info) Description 03/13/2016 Results Only [facility] [phone] Chrissy Alberto MD [address] [place] [address] [place] [address] Social History Tobacco Use Types Packs/Day Years [...] ? SHILOH ANDERSON ? Accession #: ? [id number] ? : ? 1945 (Age: 70) ??F ? Collect Date: ? 03/13/2016 ? Location: ? [facility] ? Receive Date: ? 03/14/2016 ? Provider: CHRISSY ALBERTO MD Copy to: CRISTY SON MEDICAL SERVICES COORDINATOR ? Final Pathologic Diagnosis: OVARY AND FALLOPIAN TUBE, RIGHT, SALPINGO-OOPHOREC TORI: - ??Ovary: ? - Benign simple cyst (4.5 cm). See comment. - ??Fallopian tube: ? - Fallopian tube no specific pathologic features. Comment: Histologic sections of the ovary show a benign uniloculated cyst with an attenuated lining, precluding definitive classification. Dr. Roberts 03/19/2016 11:08 AM Document reviewed and electronically [...] cut surface with a pinpoint lumen throughout. Aircraft General Repair Mechanic sections are submitted as follows: BLOCK [place] 1-2- ??cystic ovary 3- ??fallopian tube including two cross sections and one half of the fimbria Gaby Wise 03/15/2016 11:20 AM End of Report [facility] 03/13/2016 17:4 3 EDT 03/14/2016 17:43 EDT us Chrissy Alberto MD PATHOLOGY ORDERABLES Final Resu lt [facility] [address] [place] [address] * CYTOPATHOLOGY (03/13/2016 0:00 EDT) Pathology Report: CYTOPATHOLOGY REPORT Reports generated via electronic interface contain original data; however they are lacking the format of the original report. Caution should be taken when reading/interpret ing unformatted reports. Name: ? SHILOH ANDERSON ? Accession #: ? [id number] : ? 1945 (Age: 70) ??F ?Collect Date: ? 03/13/2016 Location: ? [facility] ? Receive Date: ? 03/15/2016 Provider: ? CHRISSY ALBERTO MD Copy to: ?CRISTY SON MEDICAL SERVICES COORDINATOR ? CYTOLOGIC DIAGNOSIS: PERITONEAL WASHING, CYTOLOGIC EVALUATION: [...] cellular enhancement technique. ? End of Report [facility] 03/13/2016 03/15/2016 7:4 2 EDT us Chrissy Alberto MD PATHOLOGY ORDERABLES Final Resu lt [facility] [address] [place] [address] documented in this encounter Visit Diagnoses Not on filedocumented in this encounter Care Teams International Logistics Coordinator Relationship Specialty Start Date End Date Cristy Son, MEDICAL SERVICES COORDINATOR [facility] [address] [place] [address] PCP - General 02/21/12 documented as of this encounter
--- OUTSIDE RECORDS SUMMARY | 2024-08-12 20:13 | XMS_ITS | Encounter Summary ---
Author Organization [facility] Address [facility] [place] [address] Care Team Providers Care Parks Recreation Coordinator Name Role Phone Wilma Nance MD Primary Care Provider [phone] Encounter Details Date Type Department Care Team [...] 2:30 PM EST Office Visit Hematology/Oncology at [address] [phone] Sony Lyons MD [facility] [place] [address] Dottie Lira APRN [address] [place] [address] DR HEMATOLOGY AND ONCOLOGY [place], [place] [address] 06/02/2025 2:00 PM EST Office Visit Dermatology at [address] [place] [address] Sam Johns MD [address], FUAD A DERMATOLOGY [place], [place] [address] documented as of this encounter Visit Diagnoses Not on filedocumented in this encounter Care Teams Parks Recreation Coordinator Relationship Specialty Start Date End Date Wilma Nance MD [address] [place] [address] PCP - General Family Medicine 09/18/17 05/09/24 documented as of this encounter
--- OUTSIDE RECORDS SUMMARY | 2024-08-12 20:13 | XMS_ITS | Clinical Summary ---
Author Organization [facility] [place] [address] Care Team Providers Care Clean Up Supervisor Name Role Phone Wilma Nance MD Primary Care Provider [phone] Allergies Active Allergy Reactions Criticality Noted Date [...] D3, (Vitamin D3) 1,000 unit Tablet Take 2,000 Units by mouth daily. Active folic acid (Folvite) 400 mcg Tablet Take 400 mcg by mouth daily. Active multivitamin (THERAGRAN) Tablet Take 1 tablet by mouth daily. Active Narcan 4 mg/actuation [place], Non-Aerosol ADMINISTER 1 SYRINGE FULL IN NOSTRIL [...] 01/09/2023 Active FLUoxetine (PROzac) 20 mg capsule 30 mg. 01/16/2023 Active fluticasone propionate (Flonase) 50 mcg/actuation [place], Suspension daily. 12/26/2022 Active nitroGLYcerin (Nitrostat) 0.3 [...] of 3 cycles. 40 g 03/11/2023 Active Additional Information Patient not taking.Reported on 08/02/2024 buPROPion SR (Wellbutrin SR) 150 mg SR 12 hr tablet 05/15/2023 Active furosemide (Lasix) 20 mg tablet 20 mg. 02/09/2024 Active budesonide-formotero L (Symbicort) 160-4.5 mcg/actuation inhaler (HFA) 03/31/2024 Active FLUoxetine (PROzac) 10 mg capsule 07/26/2024 Active tiotropium-olodatero L (Stiolto Respimat) 2.5-2.5 mcg/actuation inhaler Inhale 2 puffs into the lungs daily. 1 each 11 08/02/2024 Active Active Problems Problem Noted Date Diagnosed [...] Encounters Date Type Department Care Team Description 08/10/2024 Telephone [place] [address] Alysa Buck 08/04/2024 Telephone [place] [address] Alysa Buck 08/02/2024 4:00 PM EST Office [place] [address] Tami Craig MD Abnormal CT of the chest; Chronic obstructive pulmonary disease, unspecified COPD type 08/02/2024 2:51 PM EST - 08/02/2024 11:59 PM EST Hospital Encounter [place] [address] ILD (interstitial lung disease) Discharge Disposition: Home 08/02/2024 Travel 07/30/2024 Orders Only [place] [facility] [address] [place] [address] Tami Craig MD ILD (interstitial lung disease) (Primary Dx) 05/27/2024 3:45 PM EDT Office Visit Dermatology at [address] [place] [address] Sam Johns MD History of basal cell carcinoma 05/27/2024 Travel from Last 3 Months Family History Medical [...] Sign Reading Time Taken Comments Blood Pressure 136/65 08/02/2024 4:08 PM EST Pulse 61 08/02/2024 4:08 PM EST Temperature 36.4 ??C (97.5 ??F) 08/02/2024 4:08 PM ES T Respiratory Rate 20 08/02/2024 4:08 PM EST Oxygen Saturation 94% 08/02/2024 4:08 PM EST Inhaled Oxygen Concentration - - Weight 112 kg (246 lb 14.6 oz) 08/02/2024 4:08 P M EST Height 159.5 cm (5' 2.8) 08/02/2024 4:08 PM EST Body Mass Index 44.03 08/02/2024 4:08 PM EST Plan of Treatment Upcoming Encounters Date Type Department Care Team (Late st Contact Info) Description 09/16/2024 2:30 PM EST Office Visit Hematology/Oncology at [address] [address] Sony Lyons MD [facility] [place] [address] Dottie Lira APRN [address] [place] [address] DR HEMATOLOGY AND ONCOLOGY [place], [place] [address] 06/02/2025 2:00 PM EST Office Visit Dermatology at [place] [address] [place] [address] Sam Johns MD [address] [place] [address] Health Maintenance Due Date Last Done Comments Pneumoccocal Vaccine: 50+ (1 of 2 - PCV) 1962 Tetanus/Diphtheria/Pertussis Vaccines (1 - Tdap) 1962 Zoster vaccine (1 of 2) 1993 Bone Density Scan 2008 RSV Vaccine (1 - 1-dose 75+ series) 2018 Covid-19 Vaccine (1 - season) 2024 Influenza (Flu) vaccine (1 o f 1 - Influenza standard series) 03/28/2024 Breast Cancer screening Discontinued 07/20/2012, 08/13 Procedures Procedure Name Priority Date/Time Associated Diagnosis Comments COMMON PULMONARY FUNCTION TEST Routine 08/02/2024 3:34 PM EST ILD (interstitial lung disease) MAMMO UNILATERAL DIAGNOSTIC SCREENING WITH CAD Routine 07/20/2012 2:45 PM EST from Last 3 Months or Most Recently Relevant to Health Maintenance Results * Common Pulmonary Function Test (08/02/2024 [...] PFT FEV1/FVC Pre-BD Z-Score -1.35 COMPAS PFT DVI32-17 Actual Pre-BD 0.64 % COMPAS PFT VIR56-14 Predicted 1.49 % COMPAS PFT DOA45-19 Pre-BD % of Predicted 43 % COMPAS PFT TJM70-05 Pre-BD Z-Score -1.58 COMPAS PFT DLCO Hb [...] Normal resting oxygen saturation. Desaturation with exertion [id number] oxygen to maintain normal saturation. Bear Avila MD PFT ORDERABLES COMPAS PFT * Mammo unilateral diagnostic screening with CAD [...] Documents on File Type Date Recorded Patient Storage Garage Attendant Expl anation Advance Directives and Living Will 07/08/2022 1:05 PM vt advance directive 07/08/22 * Full Code (Latest Code Status on File) Date Activated Date Inactivated Comments 09/28/2012 7:19 AM 09/28/2012 1:39 PM Question Answer Comments Order Status: Initial Order Does patient have decision m aking capacity? Yes, Order is based on Patients wishes. Care Teams Clean Up Supervisor Relationship Specialty Start Date End Date Wilma Nance MD [address] [place] [address] PCP - General Family Medicine 05/10/24
--- OUTSIDE RECORDS SUMMARY | 2024-08-12 20:13 | XMS_ITS | Encounter Summary ---
Author Organization [facility] Address [address] [place] [address] Care Team Providers Care Supervisor Boilermaking Shop Name Role Phone Mikaela Cristy Delmi NOE Primary Care Provider [phone] Encounter Details Date Type Department Care Team (Late st Contact Info) Description 07/24/2020 Lab Requisition [facility] Pathology & Laboratory Medicine - [facility] [address] [place], [place] [address] Outr Resulting Lab, Provider Social History Tobacco [...] Unknown 07/24/2020 12:02 EST 07/24/2020 15:30 EST us Provider Outr Resulting Lab MICROBIOLOGY - GENER AL ORDERABLES Final Result [facility] [address] [place] [address] * COVID-19 TESTING (07/24/2020 12:02 EST) COVID-19 rt-PCR Result Negative Negative 07/25/2020 16:43 EST [facility] Comment: Negative results do not preclude 2019-nCoV infection and should not be used as the sole basis for treatment or other patient management decisions. Negative results must be combined with clinical observations, patient history, and epidemiological information. This test was developed and its performance characteristics determined by [facility]. It has not been cleared or approved [...] defined by the FDA Performed on the [employer]ista App[employer] 7 Flex. Performing Lab Quantstud[employer] 7 [facility] Lab 07/25/2020 16:43 EST [facility] Swab 07/24/2020 12:0 2 EST 07/24/2020 15:30 EST us Provider Outr Resulting Lab MICROBIOLOGY - GENER AL ORDERABLES Final Result [facility] [address] [place] [address] documented in this encounter Visit Diagnoses Not on filedocumented in this encounter Care Teams Supervisor Boilermaking Shop Relationship Specialty Start Date End Date Cristy Al NP [facility] [address] [place], [place] [id number] PCP - General 02/21/12 documented as of this encounter
--- OUTSIDE RECORDS SUMMARY | 2024-08-12 20:13 | XMS_ITS | Encounter Summary ---
Author Organization [facility] Address [address] [place] [address] Care Team Providers Care Leather Cutter Name Role Phone Cristy Al ELECTRONIC WARFARE OPERATOR Primary Care Provider [phone] Encounter Details Date Type Department Care Team (Latest Contact Info) Description 03/13/2016 9:04 EDT - 03/13/2016 14:29 EDT Hospital Encounter [address] [address] Sonia Valdez MD Discharge Disposition: Home or Self Care Social [...] Code Departure Means Destination Home or Self Longterm documented in this encounter Plan of Treatment Not on file documented as of this encounter Visit Diagnoses Not on filedocumented in this encounter Care Teams Leather Cutter Relationship Specialty Start Date End Date Cristy Al NP [facility] [address] [place] [address] PCP - General 02/21/12 documented as of this encounter
--- OUTSIDE RECORDS SUMMARY | 2024-08-12 20:13 | XMS_ITS | Encounter Summary ---
Author Organization [facility] [place] [address] Care Team Providers Care Base Brander Name Role Phone Wilma Nance MD Primary Care Provider [phone] Encounter Details Date Type Department Care Team (Late Contact Info) Description 07/10/2023 4:55 PM EST Ancillary Procedure Radiology Library at [facility] [place] [address] Sony Lyons MD [facility] [place] [address] Social History Tobacco Use Types Packs/Day Years [...] 2:30 PM EST Office Visit Hematology/Oncology at [address] [address] Sony Lyons MD [facility] [place] [address] Dottie Lira APRN [address] [place] [address] DR HEMATOLOGY [place] [address] 06/02/2025 2:00 PM EST Office Visit Dermatology at [place] [address] [place] [address] Sam Johns MD [address], [place] [address] documented as of this encounter Procedures Procedure Name Priority Date/Time Associated Diagnosis Comments FILM LIBRARY STORAGE ONLY MR ABDOMEN Routine 07/10/2023 4:53 PM EST documented in this encounter Results * Film Library- Storage Only MR Abdomen (07/10/2023 4:53 PM EST) Narrative [facility] - 07/10/2023 4:53 PM EST This exam is auto-finalizing. It's purpose is for storage only. Sony Lyons MD IMG FILM LIBRARY ORD ERABLES [place], [place] documented in this encounter Visit Diagnoses Not on filedocumented in this encounter Care Teams Base Brander Relationship Specialty Start Date End Date Wilma Nance MD [address] [place] [address] PCP - General Family Medicine 09/18/17 05/09/24 documented as of this encounter
--- OUTSIDE RECORDS SUMMARY | 2024-08-12 20:13 | XMS_ITS | Encounter Summary ---
[place] [address] Care Team Providers Care Disability Case Manager Name Role Phone Wilma Nance MD Primary Care Provider [phone] Reason for Visit * Reason Onset Date Comments Prior Authorization 02/05/2024 Encounter Details Date Type Department Care Team (Late st Contact Info) Description 02/05/2024 Telephone [place] [address] Gloria Villagomez Prior Authorization Social History Tobacco [...] 2:40 PM EDT Procedure Prior Authorization Procedure/Cpt: 92875, 09179 ct c/a/p Rationale: C18.7 Health Plan: BS Vt Authorizing Vendor: as above Service Order/Case ID: Authorization #: Effective Date: Status: PA not required Call Ref # : [id number] Rendering Facility: [facility] documented in this encounter Plan of Treatment Upcoming Encounters Date Type Department Care Team (Late st Contact Info) Description 09/16/2024 2:30 PM EST Office Visit Hematology/Oncology at [address] [place] [address] Sony Lyons MD [facility] [place] [address] Dottie Lira APRN [address] [place] [address] [place] [address] 06/02/2025 2:00 PM EST Office Visit Dermatology at [place] [address] [place] [address] Sam Johns MD [address], [place] [address] documented as of this encounter Visit Diagnoses Not on filedocumented in this encounter Care Teams Disability Case Manager Relationship Specialty Start Date End Date Wilma Nance MD [address] [place] [address] PCP - General Family Medicine 09/18/17 05/09/24 documented as of this encounter
--- OUTSIDE RECORDS SUMMARY | 2024-08-12 20:13 | XMS_ITS | Encounter Summary ---
Author Organization [facility] Address [address] [place] [address] Care Team Providers Care Dry Heat Cabinet Attendant Name Role Phone Cristy Al NP Primary Care Provider [phone] Encounter Details Date Type Department Care Team (Late st Contact Info) Description 02/05/2023 Lab Requisition [facility] Pathology & Laboratory Medicine - [address] [id number] Outr Resulting Lab, Provider Social History Tobacco [...] 3.6 See Note ng/mL 02/05/2023 23:17 EDT [facility] Comment: % [...] Unknown 02/05/2023 15:00 EDT 02/05/2023 21:34 EDT us Provider Outr Resulting Lab CHEMISTRY & BLOOD GA S ORDERABLES Final Result [facility] [address] [place] [address] documented in this encounter Visit Diagnoses Not on filedocumented in this encounter Care Teams Dry Heat Cabinet Attendant Relationship Specialty Start Date End Date Cristy Al NP [facility] [address] [place] [address] PCP - General 02/21/12 documented as of this encounter
--- OUTSIDE RECORDS SUMMARY | 2024-08-12 20:13 | XMS_ITS | Encounter Summary ---
Author Organization [facility] [place] [address] Care Team Providers Care Set Up Inspector Name Role Phone Wilma Nance MD Primary Care Provider [phone] Encounter Details Date Type Department Care Team (Late Contact Info) Description 03/10/2024 7:40 PM EDT Ancillary Procedure Radiology Library at [facility] [place] [address] Wilma Nance MD [address] [place] [address] Social History Tobacco Use Types Packs/Day Years [...] 2:30 PM EST Office Visit Hematology/Oncology at [address] [phone] Sony Lyons MD [facility] [place] [address] Dottie Lira APRN [address] [place] [address] DR HEMATOLOGY AND ONCOLOGY [place], [place] [address] 06/02/2025 2:00 PM EST Office Visit Dermatology at [place] [address] [place] [address] Sam Johns MD [address], [place] [address] documented as of this encounter Procedures Procedure Name Priority Date/Time Associated Diagnosis Comments FILM LIBRARY STORAGE ONLY CT CHEST ABDOMEN PELVIS Routine 03/10/2024 7:35 PM EDT documented in this encounter Results * Film Library- Storage Only CT Chest Abdomen Pelvis (03/10/2024 7:35 PM EDT) Narrative [facility] - 03/10/2024 7:35 PM EDT This exam is auto-finalizing. It's purpose is for storage only. Wilma Nance MD IMG FILM LIBRARY ORD ERABLES [place], [place] documented in this encounter Visit Diagnoses Not on filedocumented in this encounter Care Teams Set Up Inspector Relationship Specialty Start Date End Date Wilma Nance MD [address] [place] [address] PCP - General Family Medicine 09/18/17 05/09/24 documented as of this encounter
--- OUTSIDE RECORDS SUMMARY | 2024-08-12 20:13 | XMS_ITS | Encounter Summary ---
[place] [address] Care Team Providers Care Depot Manager Name Role Phone Wilma Nance MD Primary Care Provider [phone] Reason for Referral * Diagnostic Test (Routine) - Closed Specialty Diagnoses / Procedures Referred By Contac t Referred To Contact Radiology Diagnoses Malignant neoplasm of sigmoid colon Procedures CT Chest Abdomen Pelvis w Contrast (Generic) Dottie Lira APRN [address] [place] [address] [place] [address] [facility] [address] [place] [address] Referral ID Status Reason Start Date Expiration Date V isits Requested Visits Authorized [id number] Closed Specialty Service Requested 11/14/2023 05/15/2025 1 1 Encounter Details Date Type Department Care Team (Late st Contact Info) Description 11/14/2023 11:30 AM EDT Office Visit Hematology/Oncology at [address] [phone] Dottie Lira APRN [address] [place] [address] [place] [address] Malignant neoplasm of transverse colon; [...] Category: pT3 pN Category: pN0 Prior Biopsy ([facility] Standard 2.1) A biopsy was performed and read elsewhere and reviewed: [id number] part B Additional Findings Additional Findings: None [...] surgery 22. Genetic testing 2022 - Result: [facility]'s CancerNext-Expanded Panel showed no mutation [...] NF1, NF2, NTHL1, PALB2, PHOX2B, PMS2, POT1, WUQQO4X, PTCH1, PTEN, RAD51C, RAD51D, RB1, RECQL, RET, SDHA, SDHAF2, SDHB, SDHC, SDHD, SMAD4, SMARCA4, SMARCB1, SMARCE1, STK11, SUFU, RNOQ154, TP53, TSC1, TSC2, VHL and XRCC2 (sequencing [...] that was negative. Soc Hx: Lives in [place], [place] Tob - Current (quits and restarts frequently) - she plans to try quitting again with the help of nicotine replacement and counseling. 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; [...] 2:30 PM EST Office Visit Hematology/Oncology at [address] [phone] Sony Lyons MD [facility] [place] [address] Dottie Lira APRN [address] [place] [address] DR [place] [address] 06/02/2025 2:00 PM EST Office Visit Dermatology at [place] [address] [place] [address] Sam Johns MD [address] [facility] [place] [address] Scheduled Orders Name Type Priority Associated Diagnoses [...] colon documented in this encounter Care Teams Depot Manager Relationship Specialty Start Date End Date Wilma Nance MD [address] [place] [address] PCP - General Family Medicine 09/18/17 05/09/24 documented as of this encounter
--- OUTSIDE RECORDS SUMMARY | 2024-08-12 20:13 | XMS_ITS | Encounter Summary ---
Author Organization [facility] Address [address] [place] [address] Care Team Providers Care Security Trainer Name Role Phone Cristy Al PAVING AND SURFACING LABOURER Primary Care Provider [phone] Encounter Details Date Type Department Care Team (Latest Contact Info) Description 03/13/2016 14:30 EDT - 03/13/2016 23:59 EDT Hospital Encounter [address] [address] Sonia Valdez MD Discharge Disposition: Home or [...] Code Departure Means Destination Home or Self Jail documented in this encounter Plan of Treatment Not on file documented as of this encounter Visit Diagnoses Not on filedocumented in this encounter Care Teams Security Trainer Relationship Specialty Start Date End Date Cristy Al NP [facility] [address] [place] [address] PCP - General 02/21/12 documented as of this encounter
--- OUTSIDE RECORDS SUMMARY | 2024-08-12 20:13 | XMS_ITS | Encounter Summary ---
[place] [address] Care Team Providers Care Printed Circuit Board Preassembler Name Role Phone Wilma Nance MD Primary Care Provider [phone] Reason for Referral * Consultation (Routine) - Authorized Specialty Diagnoses / Procedures Referred By Contac t Referred To Contact Pulmonology Diagnoses Pulmonary fibrosis, unspecified Wilma Nance MD [address] [place] [address] [facility] Pulmonology [address] [place] [phone] Referral ID Status Reason Start Date Expiration Date Visits Requested Visits Authorized [id number] Authorized Consult, Test & Treat PCP Updated and/or Approved 04/22/2024 04/22/2025 6 6 Encounter Details Date Type Department Care Team (Latest Contact Info) Description 05/11/2024 Transcribe Orders eDH Incoming Referrals [phone] Wilma Nance MD [address] [employer] [place] [id number] Pulmonary fibrosis, unspecified Social History Tobacco Use Types Packs/Day Years [...] 2:30 PM EST Office Visit Hematology/Oncology at [address] [address] Sony Lyons MD [facility] [place] [address] Dottie Lira APRN [address] [place] [address] DR HEMATOLOGY [place] [address] 06/02/2025 2:00 PM EST Office Visit Dermatology at [place] [address] [facility] [place] [address] Sam Johns MD [address] [facility] [place] [address] Scheduled Referrals Name Type Priority Associated Diagnoses Orde r Schedule Referral to Pulmonology Outpatient Referral Routine Pulmonary fibrosis, unspecified Ordered: 05/11/2024 documented as of this encounter Visit Diagnoses Diagnosis Pulmonary fibrosis, unspecified documented in this encounter Care Teams Printed Circuit Board Preassembler Relationship Specialty Start Date End Date Wilma Nance MD [address] [place] [address] PCP - General Family Medicine 05/10/24 documented as of this encounter
--- OUTSIDE RECORDS SUMMARY | 2024-08-12 20:13 | XMS_ITS | Encounter Summary ---
Author Organization [facility] Address [address] [place] [address] Care Team Providers Care Transit Operations Supervisor Name Role Phone Mikaela Cristymary Awad NP Primary Care Provider [phone] Encounter Details Date Type Department Care Team (Late st Contact Info) Description 05/08/2022 Lab Requisition [facility] Pathology & Laboratory Medicine - [address] [address] Ghislaine Carrillo MD [address] [place] [address] [place], [place] [id number] Malignant neoplasm of colon, unspecified (HCC-CMS) Social [...] sites are present (unifocal) 06/26/2022 15:02 EST [facility] Addendum electronically signed by Ema Deluna MD on 06/26/2022 at 1502 Note to Patient The following pathology results have been interpreted by your pathologist and may be available to you before your health provider has had the opportunity to review them. Please allow time for your provider to receive these results and explore management options, if applicable. 06/26/2022 15:02 [facility] Final Diagnosis A. [...] See comment and synoptic report. 06/26/2022 15:02 [facility] Diagnosis Comment Mucin from a mucin pool containing tumor cells focally extends beyond the muscularis propria into the pericolonic soft tissue. This is suspicious for focal pericolonic soft tissue involvement by tumor, and thus the tumor is staged as pT3. Deeper levels were examined. Broke Beater slides of this case were reviewed at the gastrointestinal/ sukhdev intradepartmental consultation conference. (KB, NF, RW) 06/26/2022 15:02 [facility] Attestation There was significant resident/fellow involvement in the diagnostic evaluation of this case. By the signature below, the attending physician certifies that they have personally conducted a gross and/or microscopic examination of the described specimens and rendered or confirmed the above diagnosis. 06/26/2022 15:02 [facility] at 1308 Synoptic [...] Buds: ?0 per 'hotspot' field ?? Tumor Baskin Score: ?Low (0-4) ?? Type of Polyp [...] ?? Additional Findings: ?None identified 06/26/2022 15:02 [facility] Clinical History Colon cancer 06/26/2022 15:02 [facility] Gross Description A. [...] greatest dimension). The tumor is submitted entirely. Broke Beater sections are submitted as follows: INK TROY [...] MADDY FRIEDMAN, DO 05/10/2022 17:28 06/26/2022 15:02 [facility] Resident/Fell ow: Maddy Friedman, 06/26/2022 15:02 EST [facility] Performing Lab [facility] 06/26/2022 15:02 [facility] Scanned Images 06/26/2022 15:02 [facility] Tissue ENTIRE TRANSVERSE COLON / Unknown 05/08/2022 12:30 EDT 05/08/2022 17:14 EDT us Ghislaine Carrillo MD PATHOLOGY ORDERABLES Tan michelle Result - Final [facility] [address] [place] [address] documented in this encounter Visit Diagnoses Diagnosis Malignant neoplasm of colon, unspecified (HCC-CMS) documented in this encounter Care Teams Transit Operations Supervisor Relationship Specialty Start Date End Date Cristy Al NP [facility] [address] [place] [address] PCP - General 02/21/12 documented as of this encounter
--- OUTSIDE RECORDS SUMMARY | 2024-08-12 20:13 | XMS_ITS | Encounter Summary ---
[place] [address] Care Team Providers Care Semiconductor Processing Group Leader Name Role Phone Wilma Nance MD Primary Care Provider [phone] Encounter Details Date Type Department Care Team (Late st Contact Info) Description 08/10/2024 Telephone [place] [phone] Alysa Buck Social History Tobacco Use Types [...] * Telephone Encounter - Alysa Buck - 08/10/2024 11:16 AM EST LM asking pt to return call to schedule a Smoking cessation apptmt documented in this encounter Plan of Treatment Upcoming Encounters Date Type Department Care Team (Late st Contact Info) Description 09/16/2024 2:30 PM EST Office Visit Hematology/Oncology at [address] [phone] Sony Lyons MD [facility] [place] [address] Dottie Lira APRN [address] [place] [address] [place] [address] 06/02/2025 2:00 PM EST Office Visit Dermatology at [place] [address] [place] [phone] Sam Johns MD [address], [place] [address] documented as of this encounter Visit Diagnoses Not on filedocumented in this encounter Care Teams Semiconductor Processing Group Leader Relationship Specialty Start Date End Date Wilma Nance MD [address] [place] [address] PCP - General Family Medicine 05/10/24 documented as of this encounter
--- OUTSIDE RECORDS SUMMARY | 2024-08-12 20:13 | XMS_ITS | Encounter Summary ---
Author Organization [facility] Address [facility] [place] [address] Care Team Providers Care Process Worker Name Role Phone Wilma Nance MD Primary Care Provider [phone] Encounter Details Date Type Department Care Team (Latest Contact Info) Description 03/12/2024 Travel Social History Tobacco Use Types Packs/Day [...] 2:30 PM EST Office Visit Hematology/Oncology at [address] [phone] Sony Lyons MD [facility] [place] [address] Dottie Lira APRN [address] [place] [address] DR HEMATOLOGY AND ONCOLOGY [place], [place] [address] 06/02/2025 2:00 PM EST Office Visit Dermatology at [address] [place] [address] Sam Johns MD [address], FUAD A DERMATOLOGY [place], [place] [address] documented as of this encounter Visit Diagnoses Not on filedocumented in this encounter Care Teams Process Worker Relationship Specialty Start Date End Date Wilma Nance MD [address] [place] [address] PCP - General Family Medicine 09/18/17 05/09/24 documented as of this encounter
--- OUTSIDE RECORDS SUMMARY | 2024-08-12 20:13 | XMS_ITS | Encounter Summary ---
Author Organization [facility] Address [address] [place] [address] Care Team Providers Care Equity Manager Name Role Phone Cristy Al NP Primary Care Provider [phone] Encounter Details Date Type Department Care Team (Late st Contact Info) Description 04/17/2022 Lab Requisition [facility] Pathology & Laboratory Medicine - [facility] [address] [place] [address] hGislaine Carrillo MD [address] [place] [address] [address] [place], [place] [address] Encounter for screening for malignant neoplasm of [...] explore management options, if applicable. 04/23/2022 10:25 [facility] Final Diagnosis A. COLON, 60 CMS, MASS, BIOPSY: - Invasive moderately differentiated adenocarcinoma. - See comment. 04/23/2022 10:25 [facility] Diagnosis Comment RESULTS OF IMMUNOHISTOCHEMICAL [...] notice. ANTIBODY (CLONE) (BLOCK): RESULT MLH1 (M1, [place]) (block A1): Loss of expression in the tumor PMS2 (A16-4, [place]) (block A1): Loss of expression in the tumor MSH2 (E952-3803, [place]) (block A1): Retained expression in tumor MSH6 (SP93, [place]) (block A1): Retained expression in tumor Internal [...] performance characteristics have been determined by [facility] and/or by a referring laboratory. The positive and negative controls worked appropriately. This laboratory is certified under the Clinical Laboratory Improvement Amendments of 1988 (CLIA-88) as qualified to perform high complexity clinical laboratory testing. 04/23/2022 10:25 [facility] Attestation By the signature below, the attending physician certifies that they have 1) personally conducted a gross and/or microscopic examination of the described specimen(s), and/or personally interpreted the results of laboratory testing of the described specimen(s), and 2) personally rendered or confirmed the above diagnosis. 04/23/2022 10:25 [facility] at 1025 Clinical History Screening 04/23/2022 10:25 EDT [facility] Gross Description A. Received in formalin labelled with proper patient identification (initials H, B) and 1. Mass @ 60 cm are 6 lenz tissues (0.5 x 0.3 x 0.1 cm to 0.2 by less than 0.1 by less than 0.1 cm). Entirely submitted in A1-A2. Please note the smallest tissue may not survive processing. ASHLYN MAJANOI 04/18/2022 8:05 04/23/2022 10:25 EDT [facility] Performing Lab [facility] 04/23/2022 10:25 EDT [facility] Scanned Images 04/23/2022 10:25 EDT [facility] Tissue ENTIRE SIGMOID COLON / Unknown 04/17/2022 7:52 EDT 04/17/2022 16:59 EDT us Ghislaine Carrillo MD PATHOLOGY ORDERABLES Fin al Result [facility] [address] [place] [address] documented in this encounter Visit Diagnoses Diagnosis Encounter for screening for malignant neoplasm of rectum Screening for malignant neoplasm of the rectum Encounter for screening for malignant neoplasm of colon Special screening for malignant neoplasms, colon documented in this encounter Care Teams Equity Manager Relationship Specialty Start Date End Date Cristy Al NP [facility] [address] [place], [place] [address] PCP - General 02/21/12 documented as of this encounter
--- OUTSIDE RECORDS SUMMARY | 2024-08-12 20:13 | XMS_ITS | Encounter Summary ---
Author Organization [facility] Address [address] [place] [address] Care Team Providers Care Pattern Worker Name Role Phone Cristy Al DIRECTOR ZONE Primary Care Provider [phone] Encounter Details Date Type Department Care Team (Latest Contact Info) Description 01/15/2019 15:18 EDT - 01/15/2019 23:59 EDT Hospital Encounter [address] [address] Sonia Valdez MD Discharge Disposition: Home or [...] Code Departure Means Destination Home or Self Usp documented in this encounter Plan of Treatment Not on file documented as of this encounter Visit Diagnoses Not on filedocumented in this encounter Care Teams Pattern Worker Relationship Specialty Start Date End Date Cristy Al NP [facility] [address] [place] [address] PCP - General 02/21/12 documented as of this encounter
--- OUTSIDE RECORDS SUMMARY | 2024-08-12 20:13 | XMS_ITS | Encounter Summary ---
Author Organization [facility] Address [facility] [place] [address] Care Team Providers Care Hospital Librarian Name Role Phone Wilma Nance MD Primary Care Provider [phone] Encounter Details Date Type Department Care Team [...] 2:30 PM EST Office Visit Hematology/Oncology at [address] [phone] Sony Lyons MD [facility] [place] [address] Dottie Lira APRN [address] [place] [address] DR HEMATOLOGY AND ONCOLOGY [place], [place] [address] 06/02/2025 2:00 PM EST Office Visit Dermatology at [address] [place] [address] Sam Johns MD [address], FUAD A DERMATOLOGY [place], [place] [address] documented as of this encounter Visit Diagnoses Not on filedocumented in this encounter Care Teams Hospital Librarian Relationship Specialty Start Date End Date Wilma Nance MD [address] [place] [address] PCP - General Family Medicine 09/18/17 05/09/24 documented as of this encounter
--- OUTSIDE RECORDS SUMMARY | 2024-08-12 20:13 | XMS_ITS | Encounter Summary ---
Author Organization [facility] Address [facility] [place] [address] Care Team Providers Care Stitcher Special Machine Name Role Phone Wilma Nance MD Primary Care Provider [phone] Encounter Details Date Type Department Care Team (Latest Contact Info) Description 08/02/2024 Travel Social History Tobacco Use Types Packs/Day [...] PM EST Office Visit Hematology/Oncology at [address] [phone] Sony Lyons MD [facility] [place] [address] Dottie Lira APRN [address] [place] [address] DR HEMATOLOGY AND ONCOLOGY [place], [place] [address] 06/02/2025 2:00 PM EST Office Visit Dermatology at [address] [place] [address] Sam Johns MD [address] [place] [address] RD, FU[address] A DERMATOLOGY [place], [place] [address] documented as of this encounter Visit Diagnoses Not on filedocumented in this encounter Care Teams Stitcher Special Machine Relationship Specialty Start Date End Date Wilma Nance MD [address] [place] [address] PCP - General Family Medicine 05/10/24 documented as of this encounter
--- OUTSIDE RECORDS SUMMARY | 2024-08-12 20:13 | XMS_ITS | Encounter Summary ---
Author Organization [facility] Address [address] [place] [address] Care Team Providers Care Garbage Truck Dispatcher Name Role Phone Unavailable Primary Care Provider Unavailabl e Encounter Details Date Type Department Care Team (Late st Contact Info) Description 02/23/2008 Before PRISM Converted Visit (Maple) [facility] - Maple conversion [address] [place] [address] Cristy Son, [facility] [address] [place], [place] [id number] Social History Tobacco Use Types Packs/Day Years [...] ? SHILOH ANDERSON ? Accession #: ? [id number] ? : ? 1945 (Age: 62) ??F [...] reviewed and electronically signed by: ? Prabhu Rodriguez, CT(ASCP) ? Report Date: ??02/29/2008 07:53 ? End of Report ? ROSANA SALINAS 02/23/2008 02/24/2008 us Cristy Son NP PATHOLOGY ORDERABLES Final Resu lt ROSANA [facility] [address] [place] [address] documented in this encounter Visit Diagnoses Not on filedocumented in this encounter
--- OUTSIDE RECORDS SUMMARY | 2024-08-12 20:13 | XMS_ITS | Encounter Summary ---
[place] [address] Care Team Providers Care Law Instructor Name Role Phone Wilma Nance MD Primary Care Provider Encounter Details Date Type Department Care Team (Latest Contact Info) Description 08/02/2024 2:51 PM EST - 08/02/2024 11:59 PM [facility] Hospital [place] [phone] ILD (interstitial lung disease) Discharge Disposition: Home Social History Tobacco Use [...] Sig Dispensed Refills Start Date End Date FLUoxetine (PROzac) 10 mg capsule 07/26/2024 budesonide-formoteroL (Symbicort) 160-4.5 mcg/actuation inhaler (HFA) 03/31/2024 buPROPion SR (Wellbutrin SR) 150 mg SR 12 hr tablet 05/15/2023 FLUoxetine (PROzac) 20 mg capsule 30 mg. 01/16/2023 nitroGLYcerin (Nitrostat) 0.3 mg sublingual tablet Q5M 09/15/2022 Cane Device .MEDSUPPLY 02/24/2020 simvastatin (Zocor) 10 mg tablet Every evening 12/26/2022 fentaNYL (Duragesic) 25 mcg/hr Patch 72 hr Change 1 patch on the skin every 3 days. 01/09/2023 OXYGEN-AIR DELIVERY SYSTEMS MISC by NOT APPLICABLE route. 02/15/2021 atenoloL (Tenormin) 25 mg Tablet Take 25 mg by mouth every evening. 01/22/2022 morphine CR (Ms Contin) 15 mg Tablet Sustained Release Take 15 mg by mouth 2 times daily. 01/24/2022 losartan (COZAAR) 100 mg Tablet TAKE 1 TABLET BY MOUTH EVERY DAY 03/20/2021 albuteroL 90 mcg/actuation HFA Aerosol Inhaler Inhale 2 puffs into the lungs every 4 hours as needed for Wheezing. Use with spacer OXYGEN-AIR DELIVERY SYSTEMS MISC nightly. With c-pap 11/18/2017 cholecalciferol, Vitamin D3, (Vitamin D3) 1,000 unit Tablet Take 2,000 Units by mouth daily. folic acid (Folvite) 400 mcg Tablet Take 400 mcg by mouth daily. multivitamin (THERAGRAN) Tablet Take 1 tablet by mouth daily. Narcan 4 mg/actuation [place], Non-Aerosol ADMINISTER 1 SYRINGE FULL IN NOSTRIL NEEDED FOR EXCESSIVE SEDATION FROM CHRONIC OPIATE USE 01/06/2020 levothyroxine (SYNTHROID) 175 mcg Tablet Take 175 mcg by mouth daily. 0 08/04/2017 oxyCODONE-acetaminophen (PERCOCET) 10-325 mg Tablet Take 1 tablet by mouth every 4 hours as needed. 08/26/2016 tiotropium-olodateroL (Stiolto Respimat) 2.5-2.5 mcg/actuation inhaler Inhale 2 puffs into the lungs daily. 1 each 11 08/02/2024 furosemide (Lasix) 20 mg tablet 20 mg. 02/09/2024 fluticasone propionate (Flonase) 50 mcg/actuation [place], Suspension daily. 12/26/2022 polyethylene glycoL (Miralax) 17 gram/dose Powder 02/05/2023 fluorouraciL (EFUDEX) 5 % Cream Apply thin layer topically once daily to face for 1 week on then 3 weeks off. Repeat for a total of 3 cycles. 40 g 03/11/2023 Sodium Fluoride 5000 Plus 1.1 % Cream USE TO BRUSH TEETH FOR 2 MINUTES EVERY DAY AT BEDTIME 10/31/2021 gabapentin (Neurontin) 300 mg Capsule Take 600 mg by mouth 3 times daily. 12/25/2021 oxybutynin XL (Ditropan-XL) 5 mg Tablet Extended Rel 24 hr TAKE 1 TABLET BY MOUTH DAILY 01/20/2021 celecoxib (CeleBREX) 200 mg Capsule TK 1 C PO BID 04/25/2020 cyclobenzaprine (FLEXERIL) 10 mg Tablet TAKE 1 TABLET BY MOUTH 3 TIMES A DAY NEEDED DO NOT USE BEFORE DRIVING 0 11/26/2018 ESTRACE 0.01 % (0.1 mg/gram) Cream apply 2 grams vaginally two times a week 1 06/24/2017 documented as of this encounter Plan of Treatment Upcoming Encounters Date Type Department Care Team (Late st Contact Info) Description 09/16/2024 2:30 PM EST Office Visit Hematology/Oncology at [address] [phone] Sony Lyons MD [facility] [place] [address] Dottie Lira APRN [address] [place] [address] DR [place] [address] 06/02/2025 2:00 PM EST Office Visit Dermatology at [address] [place] [phone] Sam Johns MD [address] [place] [address] RD, [place] [address] documented as of this encounter Procedures Procedure Name Priority Date/Time Associated Diagnosis Comments COMMON PULMONARY FUNCTION TEST Routine 08/02/2024 3:34 PM EST ILD (interstitial lung disease) documented in this encounter Results * Common Pulmonary Function [...] PFT FEV1/FVC Pre-BD Z-Score -1.35 COMPAS PFT [id number] Actual Pre-BD 0.64 % COMPAS PFT QLI40-37 Predicted 1.49 % COMPAS PFT ARU08-58 Pre-BD % of Predicted 43 % COMPAS PFT IPA08-36 Pre-BD Z-Score -1.58 COMPAS PFT DLCO Hb [...] Normal resting oxygen saturation. Desaturation with exertion [id number] oxygen to maintain normal saturation. Bear Avila MD PFT ORDERABLES COMPAS PFT documented in this encounter Visit Diagnoses Diagnosis ILD (interstitial lung disease) Postinflammatory pulmonary fibrosis documented in this encounter Care Teams Law Instructor Relationship Specialty Start Date End Date Wilma Nance MD [address] [place] [address] PCP - General Family Medicine 05/10/24 documented as of this encounter
--- OUTSIDE RECORDS SUMMARY | 2024-08-12 20:13 | XMS_ITS | Encounter Summary ---
[place] [address] Care Team Providers Care Hotel Front Office Manager Name Role Phone Wilma Nance MD Primary Care Provider [phone] Encounter Details Date Type Department Care Team (Late st Contact Info) Description 04/15/2023 Telephone [place] [address] Gloria Villagomez Social History Tobacco [...] 4:01 PM EDT Procedure Prior Authorization Procedure/Cpt: 05831, [address]74 ct c/a/p Rationale: C18.7 Health Plan: BCBS V[place] Authorizing Vendor: as above Service Order/Case ID: Authorization #: Effective Date: Status: PA not required Call Ref # [id number] Rendering Facility: [facility] documented in this encounter Plan of Treatment Upcoming Encounters Date Type Department Care Team (Late st Contact Info) Description 09/16/2024 2:30 PM EST Office Visit Hematology/Oncology at [address] [phone] Sony Lyons MD [facility] [place] [address] Dottie Lira APRN [address] [place] [address] DR HEMATOLOGY AND ONCOLOGY [place], [place] [address] 06/02/2025 2:00 PM EST Office Visit Dermatology at [place] [address] [place] [phone] Sam Johns MD [address], [place] [address] documented as of this encounter Visit Diagnoses Not on filedocumented in this encounter Care Teams Hotel Front Office Manager Relationship Specialty Start Date End Date Wilma Nance MD [address] [place] [address] PCP - General Family Medicine 09/18/17 05/09/24 documented as of this encounter
--- OUTSIDE RECORDS SUMMARY | 2024-08-12 20:13 | XMS_ITS | Encounter Summary ---
[place] [address] Care Team Providers Care Manufacturing Plant Controller Name Role Phone Wilma Nance MD Primary Care Provider [phone] Encounter Details Date Type Department Care Team (Late st Contact Info) Description 05/29/2023 Telephone Hematology/Oncology at [address] [phone] Marlys Claudio Social History Tobacco [...] 2:30 PM EST Office Visit Hematology/Oncology at [address] [phone] Sony Lyons MD [facility] [place] [place] [address] Dottie Lira APRN [address] [place] [address] DR HEMATOLOGY AND ONCOLOGY [place], [place] [phone] 06/02/2025 2:00 PM EST Office Visit Dermatology at [place] [address] [place] [phone] Sam Johns MD [address], [place] [address] documented as of this encounter Visit Diagnoses Not on filedocumented in this encounter Care Teams Manufacturing Plant Controller Relationship Specialty Start Date End Date Wilma Nance MD [address] [place] [address] PCP - General Family Medicine 09/18/17 05/09/24 documented as of this encounter
--- OUTSIDE RECORDS SUMMARY | 2024-08-12 20:13 | XMS_ITS | Clinical Summary ---
Author Organization [facility] Address [address] [place] [address] Care Team Providers Care Box Spring Maker Name Role Phone Wilma Nance MD Primary Care Provider [phone] Allergies No known active allergies Medications fentaNYL 25 MCG/HR Patch [address] onto the skin every 72 hours Active lisinopril 20 MG Tab Take by mouth daily Active levoTHYROxine 175 MCG Tab Take by mouth daily Active sertraline 100 MG Tab Take by mouth daily Active naproxen 500 MG Tab Take 550 mg by mouth 2 times daily (with meals) Active Multiple Vitamin (MULTIVITAMIN) Tab Take 1 Tab by mouth daily Active Immunizations Name Administration Dates Next Due Tdap Vaccine (7y+) 0.5 mL IM (Adacel, Boostrix)TDAP VACCINE AGE 7+ 06/21/2017 Social History Tobacco Use Types Packs/Day Years Used Date Smoking Tobacco: Every Day Cigarettes Smokeless Tobacco: Never Alcohol Use Standard Drinks/Week Comments Yes 4 (1 standard drink = 0.6 oz pur e alcohol) daily drinker Substance Use Types Use/Week Comments Yes Opiates Comments Unknown Sex and Gender Information Value Date Recorded Sex Assigned at Not on file Legal Sex Female 2:46 PM EST Gender Identity Not on file Sexual [...] Plan of Treatment Not on file Insurance MEDICARE [facility] Care Teams Box Spring Maker Relationship Specialty Start Date End Date Wilma Nance MD [address] [place] [address] [place] [address] PCP - General 06/21/17
--- OUTSIDE RECORDS SUMMARY | 2024-08-12 20:13 | XMS_ITS | Encounter Summary ---
Author Organization [facility] Address [address] [place] [address] Care Team Providers Care Business Management Professor Name Role Phone Wilma Nance MD Primary Care Provider [phone] Reason for Visit * Reason Comments Leg Injury Encounter Details Date Type Department Care Team (Late st Contact Info) Description 06/21/2017 3:05 PM EST - 06/21/2017 5:38 PM EST Emergency [facility] Emergency Department [address] [place] [address] [place] [phone] Mireya Villanueva MD [address] [place] [address] [place] [address] Discharge Disposition: Home or Self Care Social [...] EST documented in this encounter Functional Status * Are you deaf or do you have serious difficulty hearing? Answer Date of Assessment Author Status No 06/21/2017 2:55 PM Manuela Jimenez RN Active * Are you blind or do you have serious difficulty seeing, even when wearing glasses? Answer Date of Assessment Author Status No 06/21/2017 2:55 PM Manuela Jimenez RN Active * Do you have serious difficulty walking or climbing stairs? (5 years old or older) Answer Date of Assessment Author Status No 06/21/2017 2:55 PM Manuela Jimenez RN Active * Do you have difficulty dressing or bathing? (5 years old or older) Answer Date of Assessment Author Status No 06/21/2017 2:55 PM Manuela Jimenez RN Active * Because of a physical, mental, or emotional condition, do you have difficulty doing errands alone such as visiting a doctor's office or shopping? (15 years old or older) Answer Date of Assessment Author Status No 06/21/2017 2:55 PM Manuela Jimenez RN Active documented as of this encounter Mental Status * Because of a physical, mental, or emotional condition, do you have serious difficulty concentrating, remembering, or making decisions? (5 years old or older) Answer Entry Date Author Status No 06/21/2017 2:55 PM Manuela Jimenez RN Active documented in this encounter Discharge Instructions * Attachments The following attachments cannot be sent through Care Everywhere. * LACERATIONS: AMY (SOMALI) documented in this encounter Medications at Time of Discharge fentaNYL 25 MCG/HR Patch [address] onto the skin every 72 hours levoTHYROxine 175 MCG Tab Take by mouth daily lisinopril 20 MG Tab Take by mouth daily Multiple Vitamin (MULTIVITAMIN) Tab Take 1 Tab by mouth daily naproxen 500 MG Tab Take 550 mg by mouth 2 times daily (with meals) sertraline 100 MG Tab Take by mouth daily documented as of this encounter ED Notes [...] noted Contaminated: no Treatment: Area cleansed with: Lynnette-Clejoe Amount of cleaning: Standard Irrigation solution: Sterile saline Visualized foreign bodies/material removed: no Skin repair: Repair method: Amy Number of amy: 15 Post-procedure details: Dressing: Antibiotic ointment Patient tolerance of procedure: Tolerated well, no immediate complications MDM (ED Course and Disposition) ASSESMENT and PLAN This is a 71 y.o. female who presents with large laceration of the lower leg. Area was closed with 15 amy. She will be given follow-up with primary [...] Critical Care: No Mireya Villanueva MD 06/21/17 [id number] * Manuela Murrell RN - 06/21/2017 2:50 [...] removed: no ?? Skin repair: ??Repair method: ??Amy ??Number of amy: ??15 Post-procedure details: ??Dressing: ??Antibiotic ointment ??Patient tolerance of procedure: ??Tolerated well, no immediate complications Mireya Villanueva MD PROCEDURE/MINOR SURGICAL CHUCK ANN Final Result .MANUAL ENTRY (EXTERNAL LAB) Please Refer to Scanned Lab Report documented in this encounter Visit Diagnoses Diagnosis Laceration of left leg, initial encounter- Primary documented in this encounter Administered Medications Inactive Administered Medications - up to 3 most recent administrations Medication Order MAR Action Action Date Dose Rate Site lidocaine-EPINEPHrine 1 %-1:378196 injection 50 mg 50 mg (5 mL), Intradermal, Once, On 06/21/17 at 1645, For 1 dose Given by Other 06/21/2017 5:27 PM EST 50 mg documented in this encounter Active and Recently Administered Medications Times are shown in EST. Scheduled Medication Order 06/19/2017 06/20/2017 06/21/2017 lidocaine-EPINEPHrine 1 %-1: injection 50 mg (COMPLETED) 50 mg (5 mL), Intradermal, Once, On 06/21/17 at 1645, For 1 dose 1727 (Given by Other - Provider: Juan Luis Garcia RN) documented in this encounter Care Teams Business Management Professor Relationship Specialty Start Date End Date Wilma Nance MD [address] [place] [address] PCP - General 06/21/17 documented as of this encounter
--- OUTSIDE RECORDS SUMMARY | 2024-08-12 20:13 | XMS_ITS | Referral Summary ---
Author Organization [facility] Address [address] [place] [address] Care Team Providers Care Manager Storage Name Role Phone Wilma Nance MD Primary Care Provider Allergies No known active allergies Medications fentaNYL [...] 42.52 06/21/2017 2:51 PM EST Functional Status * Are you deaf or do you have serious difficulty hearing? Answer Date of Assessment Author Status No 06/21/2017 2:55 PM EST Manuela Murrell RN Active * Are you blind or [...] 06/21/2017 2:55 PM Manuela Jimenez RN Active Mental Status * Because of a physical, mental, or emotional condition, do you have serious difficulty concentrating, remembering, or making decisions? (5 years old or older) Answer Entry Date Author Status No 06/21/2017 2:55 PM Manuela Jimenez RN Active Plan of Treatment Not on file Insurance MEDICARE Member Subscriber Plan / Payer (Ef fective 2008-Present) Name:JUSTINSHILOH Relation to Subscriber:Self Name:JustinShiloh Payer ID:Not on file Group ID:Not on file Type:Medicare Address: [address] Care Teams Manager Storage Relationship Specialty Start Date End Date Wilma Nance MD [address] [place] [address] PCP - General 06/21/17
--- OUTSIDE RECORDS SUMMARY | 2024-08-12 20:13 | XMS_ITS | Encounter Summary ---
Author Organization [facility] Address [address] [place] [address] Care Team Providers Care Metal Fitter Name Role Phone Unavailable Primary Care Provider Unavailabl e Encounter Details Date Type Department Care Team (Late st Contact Info) Description 03/07/2004 Results Only [facility] conversion [address] [place] [address] Cristy Son, KUSUM [facility] [address] [place] [address] Social History Tobacco Use Types [...] ? SHILOH ANDERSON ? Accession #: ? [id number] : ? 1945 (Age: 58) ??F ?Collect Date: ? 03/07/2004 Location: ? [facility] ? Receive Date: ? 03/09/2004 Provider: ?CRISTY SON MILL [facility] Copy to: ? Specimen/Source: ?ThinPrep Pap Test, [...] End of Report ROS[facility] SALINAS 03/07/2004 03/09/2004 us Cristy Son [facility]ILL [facility] PATHOLOGY ORDERABLES Final Resu lt [facility] [address] [place] [address] documented in this encounter Visit Diagnoses Not on filedocumented in this encounter
--- OUTSIDE RECORDS SUMMARY | 2024-08-12 20:13 | XMS_ITS | Encounter Summary ---
[place] [address] Care Team Providers Care Special Warfare Boat Operator Name Role Phone Wilma Nance MD Primary Care Provider [phone] Reason for Referral * Consultation (Routine) - Authorized Specialty Diagnoses / Procedures Referred By Contac t Referred To Contact Diagnoses Chronic obstructive pulmonary disease, unspecified COPD type Tami Craig MD [facility] [place] [address] [facility] [place] [address] Referral ID Status Reason Start Date Expiration Date Visits Requested Visits Authorized [id number] Authorized Consult, Test & Treat 08/02/2024 08/02/2025 1 1 Reason for Visit * Consultation (Routine) - Authorized Specialty Diagnoses / Procedures Referred By Contac t Referred To Contact Pulmonology Diagnoses Pulmonary fibrosis, unspecified Wilma Nance MD [address] [place] [id number] [facility] Pulmon[facility] [address] [place] [address] Referral ID Status Reason Start Date Expiration Date Visits Requested Visits Authorized [id number] Authorized Consult, Test & Treat PCP Updated and/or Approved 04/22/2024 04/22/2025 6 6 Encounter Details Date Type Department Care Team (Late st Contact Info) Description 08/02/2024 4:00 PM EST [place] [address] Tami Craig MD [facility] [place] [address] of the chest; Chronic obstructive pulmonary disease, unspecified COPD type Social History Tobacco Use Types Packs/Day Years [...] Mass Index 44.03 08/02/2024 4:08 PM EST documented in this encounter Progress Notes * Tami Craig MD - 08/02/2024 4:00 PM EST Images from the original note were not included. PULMONARY AND CRITICAL CARE MEDICINE PATIENT NAME: Shiloh Anderson : 1945 MEDICAL RECORD: [id number] DATE OF SERVICE: 08/02/2024 PRIMARY CARE PHYSICIAN: Wilma Nance MD INITIAL OUTPATIENT CONSULTATION NOTE Chief Complaint: Abnormal CT Chest History of Present Illness: Shiloh Anderson is a 79 y.o. female with a past medical history of pT3N0 colon cancer s/p L hemicolectomy 2021, BCC of the R supra brow, hypertension, first- degree AV block, and hypothyroidism who presents to clinic for evaluation of abnormal CT Chest. She states she has noted progressive dyspnea over the past few years most notably this past year, very gradual though. She has become more sedentary as a result with subsequent weight gain of 15 lb during this time. She is bessy to continue to care for herself without limitations in her ADL, but states she can no longer ride her horse or garden due to dyspnea. She was initially started on an albuterol inhaler PRN with relief and most recently in March initiated on Symbicort but has not used consistently. She denies prior lung diagnosis including asthma as a child. 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 She denies hobbies with exposure to irritans such as chemicals, fumes, dust,molds, or aerosols. She has one horse and a vietnamese ceja, denies dyspnea when exposed to either. Formerly lived on a dairy farm with her late but has not in many years. She denies any familial lung or autoimmune diseases. Review of Systems: General: No fevers/chills no weight gain/loss Skin: No rash or eruptions HEENT: No headache or vision changes CV: No chest pain, palpitations, lightheadedness or syncope Respiratory: No cough. Shortness of breath with exertion. GI: No Nausea or vomiting, no abdominal pain, no diarrhea or constipation, no bleeding : No dysuria or hematuria Endo: No change in thirst. No polyuria, no change in temperature tolerance Neuro: No new numbness or weakness Past Medical/SurgicalFamily and Social History: Medical, surgical, social and family hx reviewed, with pertinent details discussed in assessment and plan. Allergies: Allergies Allergen Reactions Formoterol Other (See Comments) Mometasone Furoate Other Reaction(s): thrush Mirabegron Other Reaction(s): Increased blood pressure Medications: Current Outpatient Medications Medication Sig Dispense Refill FLUoxetine (PROzac) 10 mg capsule budesonide-formoteroL (Symbicort) 160-4.5 mcg/actuation inhaler (HFA) buPROPion SR (Wellbutrin SR) 150 mg SR 12 hr tablet FLUoxetine (PROzac) 20 mg capsule 30 mg. nitroGLYcerin (Nitrostat) 0.3 mg sublingual tablet Q5M Cane Device .MEDSUPPLY simvastatin (Zocor) 10 mg tablet Every evening fentaNYL (Duragesic) 25 mcg/hr Patch 72 hr Change 1 patch on the skin every 3 days. OXYGEN-AIR DELIVERY SYSTEMS MISC by NOT APPLICABLE route. atenoloL (Tenormin) 25 mg Tablet Take 25 mg by mouth every evening. morphine CR (Ms Contin) 15 mg Tablet Sustained Release Take 15 mg by mouth 2 times daily. losartan (COZAAR) 100 mg Tablet TAKE 1 TABLET BY MOUTH EVERY DAY albuteroL 90 mcg/actuation HFA Aerosol Inhaler Inhale 2 puffs into the lungs every 4 hours as needed for Wheezing. Use with spacer OXYGEN-AIR DELIVERY SYSTEMS MISC nightly. With c-pap cholecalciferol, Vitamin D3, (Vitamin D3) 1,000 unit Tablet Take 2,000 Units by mouth daily. folic acid (Folvite) 400 mcg Tablet Take 400 mcg by mouth daily. multivitamin (THERAGRAN) Tablet Take 1 tablet by mouth daily. Narcan 4 mg/actuation [place], Non-Aerosol ADMINISTER 1 SYRINGE FULL IN NOSTRIL NEEDED FOR EXCESSIVE SEDATION FROM CHRONIC OPIATE USE levothyroxine (SYNTHROID) 175 mcg Tablet Take 175 mcg by mouth daily. 0 oxyCODONE-acetaminophen (PERCOCET) 10-325 mg Tablet Take 1 tablet by mouth every 4 hours as needed. tiotropium-olodateroL (Stiolto Respimat) 2.5-2.5 mcg/actuation inhaler Inhale 2 puffs into the lungs daily. 1 each 11 furosemide (Lasix) 20 mg tablet 20 mg. fluticasone propionate (Flonase) 50 mcg/actuation [place], Suspension daily. polyethylene glycoL (Miralax) 17 gram/dose Powder fluorouraciL (EFUDEX) 5 % Cream Apply thin layer topically once daily to face for 1 week on then 3 weeks off. Repeat for a total of 3 cycles. (Patient not taking: Reported on 08/02/2024) 40 g 0 Sodium Fluoride 5000 Plus 1.1 % Cream USE TO BRUSH TEETH FOR 2 MINUTES EVERY DAY AT BEDTIME gabapentin (Neurontin) 300 mg Capsule Take 600 mg by mouth 3 times daily. oxybutynin XL (Ditropan-XL) 5 mg Tablet Extended Rel 24 hr TAKE 1 TABLET BY MOUTH DAILY celecoxib (CeleBREX) 200 mg Capsule TK 1 C PO BID cyclobenzaprine (FLEXERIL) 10 mg Tablet TAKE 1 TABLET BY MOUTH 3 TIMES A DAY NEEDED DO NOT USE BEFORE DRIVING 0 ESTRACE 0.01 % (0.1 mg/gram) Cream apply 2 grams vaginally two times a week 1 No current facility-administered medications for this visit. Objective: Patient Vitals for the past 24 hrs: Temp Pulse Resp BP SpO2 08/02/24 1608 36.4 ??C (97.5 ??F) 61 20 136/65 94 % Gen: Well developed in no acute distress. HEENT: Eye movements intact. Mucus membranes moist. Pulm: Without increased work of breathing or accessory muscle use. Lung sounds clear to auscultation bilaterally. Absent for wheezes, crackles, or rhonci. Card: normal rate, regular rhythm, no murmurs, rubs, or gallops. Extremities: Warm, trace LE edema. Full range of motion bilaterally. Neuro: Grossly intact. Facial movements are symmetrical. Pt moves all extremities. Prior Workup Data reviewed in EMR per timestamp. Below is interpretation of notable data: Prior Labs: Lab Results Component Value Date WBC 7.4 (External Lab) 05/18/2018 HGB 12.8 (External Lab) 05/18/2018 HCT 40.0 (External Lab) 05/18/2018 PLATELET 203 (External Lab) 05/18/201812/2023 LUIS 1:160 02/2024 Recent Hg 12.7 per pt access to [facility] results PFTS: 08/02/2023 FVC 1.93L (80%) FEV1 1.25L (68%) FEV1/FVC 65% DLCO 62% Imaging: . CT Chest 02/2024 with faint RLL anterior peripheral reticular and GG opacities. Mild apical centrolobular emphysema. Unchanged when compared to [address] chest and absent on 2017 CT Chest. Assessment: Shiloh Anderson is a 79 y.o. female with a past medical history of pT3N0 colon cancer s/p L hemicolectomy 2021, BCC of the R supra brow, hypertension, first- degree AV block, and hypothyroidism who presents to clinic for evaluation of abnormal CT Chest. She states she has noted progressive dyspnea over the past few years most notably this past year, very gradual though. She has become more sedentary as a result with subsequent weight gain of 15 lb during this time. She is bessy to continue to care for herself without limitations in her ADL, but states she can no longer ride her horse or garden due to dyspnea. She was initially started on an albuterol inhaler PRN with relief and most recently in March initiated on Symbicort but has not used consistently. She denies prior lung diagnosis including asthma as a child. 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 She denies hobbies with exposure to irritans such as chemicals, fumes, dust,molds, or aerosols. She has one horse and a vietnamese ceja, denies dyspnea when exposed to either. Formerly lived on a dairy farm with her late but has not in many years. She denies any familial lung or autoimmune diseases. Her dyspnea has been progressive for the past few years in the setting of ongoing smoking and faintreticular and GG opacities on CT Chest, largely unchanged over the past few years. 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 Recommend initiating LABA/LAMA maintenance inhaler with continued albuterol PRN. In regard to ILD see on imaging, it is very minuscule and has been faintly progressive if at all.Will follow up in one year with PFTs or sooner should symptoms progress or new concerning arise. Smoking cessation was discussed in length. She is motivated to quit and has successfully before. She plans to contact [phone] and have sent a referral to the [facility] smoking cessation program as well. Plan: Have prescribed Stiolto (tiotropium - odlolterol) 2 puffs once daily Continue Albuterol PRN Placed referral to smoking cessation program Encouraged active lifestyle Follow-up with me in 1 year Note to be sent to MD Tami Kapoor MD Pulmonary and Critical Care PGY-5 Pager [phone] 08/02/2024 * Kimberley Antunez MD - 08/02/2024 4:00 PM EST Patient interviewed and examined; data and radiographic studies reviewed. My findings agree with those outlined by Dr. Craig, whose note reflects our jointly formulated plan of care. Mrs. Anderson has very minor reticular changes on chest CT that have been stable over a period of almost 2 years. Her PFTs show an obstructive rather than restrictive pattern, and I suspect that her exertional dyspnea is due primarily to her COPD and marked obesity rather than her fairly minor interstitial lung disease. I don't see a clear indication for an inhaled steroid; instead, I would treat her with a LABA/LAMA. We'll see her back in clinic in about a year with repeat PFTs to make sure that her lung function is stable and there is no evidence of progressive ILD, though we emphasized that she should get in touch with us if her symptoms worsen before then. I spent 5 minutes discussing strat egies for smoking cessation. documented in this encounter Miscellaneous Notes * Addendum Note - Kimberley Antunez MD - 08/02/2024 4:00 PM ESTAddended by: KIMBERLEY ANTUNEZ on: 08/03/2024 10:26 AM Modules accepted: Level of Service documented in this encounter Plan of Treatment Upcoming Encounters Date Type Department Care Team (Late st Contact Info) Description 09/16/2024 2:30 PM EST Office Visit Hematology/Oncology at [address] [phone] Sony Lyons MD [facility] [place] [address] Dottie Lira APRN [address] [place] [address] [place] [address] 06/02/2025 2:00 PM EST Office Visit Dermatology at [place] [address] [place] [id number] Sam Johns MD [address], [place] [address] Scheduled Orders Name Type Priority Associated Diagnoses Orde r Schedule Common Pulmonary Function Test PFT Routine Chronic obstructive pulmonary disease, unspecified COPD type Expected: 08/02/2025, Expires: 01/30/2026 Scheduled Referrals Name Type Priority Associated Diagnoses Orde r Schedule Referral to Smoking Cessation Program Outpatient Referral Routine Chronic obstructive pulmonary disease, unspecified COPD type Ordered: 08/02/2024 documented as of this encounter Visit Diagnoses Diagnosis Abnormal CT of the chest Nonspecific (abnormal) findings on radiological and other examination of other intrathoracic organs Chronic obstructive pulmonary disease, unspecified COPD type documented in this encounter Care Teams Special Warfare Boat Operator Relationship Specialty Start Date End Date Wilma Nance MD [address] [place] [address] PCP - General Family Medicine 05/10/24 documented as of this encounter
--- OUTSIDE RECORDS SUMMARY | 2024-08-12 20:13 | XMS_ITS | Encounter Summary ---
[place] [address] Care Team Providers Care Bushel Worker Name Role Phone Wilma Nance MD Primary Care Provider [phone] Reason for Visit * Reason Comments Annual Exam Encounter Details Date Type Department Care Team (Late st Contact Info) Description 05/27/2024 3:45 PM EDT Office Visit Dermatology at [address] [phone] Sam Johns MD [address] [facility] A DERMATOLOGY [place], [place] [id number] History of basal cell carcinoma Social History [...] Progress Notes * Sam Johns MD - 05/27/2024 3:45 PM EDT Problem: 1. Skin checkup, 1 year 2. 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 She is here today with her Ivorian Delgadillo guide dog. She has not noted any particular lesions of concern. She never ended up using the 5-FU that I prescribed last year. Physical examination reveals a pleasant 78-year-old woman who has blue eyes and fair skin with moderate to severe solar damage of the chest and arms. There is no evidence of recurrent BCC on the upper right supra brow. She has a benign examination of the face and neck the chest the back hands arms forearms thighs and calves. She does not have any significant actinic damage today. Assessment plan: Benign skin examination in a patient with a history of BCCA right supra brow August 2015 1. Patient reassured about her benign skin examination 2. Continue sun avoidance precautions 3. Return to clinic in 1 year CC: Wilma Nance MD documented in this encounter Plan of Treatment Upcoming Encounters Date Type Department Care Team (Late st Contact Info) Description 09/16/2024 2:30 PM EST Office Visit Hematology/Oncology at [address] [phone] Sony Lyons MD [facility] [place] [address] Dottie Lira [address] [place] [address] 06/02/2025 2:00 PM EST Office Visit Dermatology at [address] [place] [address] Sam Johns MD [address] [place] [address], [place] [address] documented as of this encounter Visit Diagnoses Diagnosis History of basal cell carcinoma Personal history of other malignant neoplasm of skin documented in this encounter Care Teams Bushel Worker Relationship Specialty Start Date End Date Wilma Nance MD [address] [place] [address] PCP - General Family Medicine 05/10/24 documented as of this encounter
--- OUTSIDE RECORDS SUMMARY | 2024-08-12 20:13 | XMS_ITS | Encounter Summary ---
Author Organization [facility] Address [address] [place] [address] Care Team Providers Care Service Person Name Role Phone Mikaela Cristy Awad KUSUM Primary Care Provider [phone] Encounter Details Date Type Department Care Team (Late st Contact Info) Description 05/10/2022 Lab Requisition [facility] Pathology & Laboratory Medicine - [address] [id number] Outr Resulting Lab, Provider Social History Tobacco [...] Lyme Ab Negative Negative 05/13/2022 11:04 EDT [facility] Blood VENOUS BLOOD / Unknown 05/10/2022 5:40 EDT 05/10/2022 18:40 EDT us Provider Outr Resulting Lab IMMUNOLOGY AND SEROL OGY ORDERABLES Final Result [facility] [address] [place] [address] documented in this encounter Visit Diagnoses Not on filedocumented in this encounter Care Teams Service Person Relationship Specialty Start Date End Date Cristy Al, ADJUNCT PROFESSOR OF LAW [facility] [address] [place] [address] PCP - General 02/21/12 documented as of this encounter
--- OUTSIDE RECORDS SUMMARY | 2024-08-12 20:13 | XMS_ITS | Encounter Summary ---
Author Organization [facility] Address [address] [place] [address] Care Team Providers Care Clocksmith Name Role Phone Mikaela Cristy Delmi NOE Primary Care Provider [phone] Encounter Details Date Type Department Care Team (Late st Contact Info) Description 01/15/2019 Results Only [facility] [phone] Samy Banks MD [address] [place] [address] Social History Tobacco Use Types [...] ? SHILOH ANDERSON ? Accession #: ? [id number] ? : ? 1945 (Age: 73) ??F [...] [place] 01/16/2019 11:43 AM End of Report [facility] 01/15/2019 21:2 3 EDT 01/15/2019 21:23 EDT us Samy Banks MD PATHOLOGY ORDERABLES Final Res ult [facility] [address] [place] [address] documented in this encounter Visit Diagnoses Not on filedocumented in this encounter Care Teams Clocksmith Relationship Specialty Start Date End Date Cristy Al NP [facility] [address] [place] [address] (work) PCP - General 02/21/12 documented as of this encounter
--- OUTSIDE RECORDS SUMMARY | 2024-08-12 20:13 | XMS_ITS | Encounter Summary ---
Author Organization [facility] [place] [address] Care Team Providers Care Position Classification Specialist Name Role Phone Wilma Nance MD Primary Care Provider [phone] Reason for Visit * Reason Onset Date Comments Results 04/30/2023 Encounter Details Date Type Department Care Team (Late st Contact Info) Description 04/30/2023 Telephone [place]ematology [place] [address] Eulalio Garza V [facility] Hematology/[place] [address] Results Social History Tobacco Use Types Packs/Day [...] results is provided below. Please beadvised that [place] law requires that all health care workers respect the confidentiality ofthis information and not pass it along to other health care providers, insurance companies, or individuals without the written permission of the patient. The Familial Cancer Program welcomes any questions about these matters. Our phone number is: [phone]. On 12/16/2022 Shiloh was seen for genetic [...] NF1, NF2, NTHL1, PALB2, PHOX2B, PMS2, POT1, GXDVW8H, PTCH1, PTEN, RAD51C, RAD51D, RB1, RECQL, RET, SDHA, SDHAF2, SDHB, SDHC, SDHD, SMAD4, SMARCA4, SMARCB1, SMARCE1, STK11, SUFU, DFKA479, TP53, TSC1, TSC2, VHL and XRCC2 (sequencing [...] the gene with no increased cancer risks. [employer] is continually collecting and analyzing their data, [...] and mailing address stay updated in the [facility] system, in order for us to reach [...] and/or Pap smears as recommended by Shiloh's future [employer] [place] advisor or primary care provider. Colon cancer screening Continue with periodic colonoscopy screening as recommended by Shiloh's classifier tender. Skin cancer screening Skin cancer screening and sun protection are important for everyone, regardless of genetic predisposition. Consideration of routine dermatologic/skin exams, as recommended by Shiloh's primary care provideror roving can tender. documented in this encounter Plan of Treatment Upcoming Encounters Date Type Department Care Team (Late st Contact Info) Description 09/16/2024 2:30 PM EST Office Visit Hematology/Oncology at [address] [phone] Sony Lyons MD [facility] [place] [address] Dottie Lira APRN [address] [place] [address] DR HEMATOLOGY AND ONCOLOGY [place], [place] [address] 06/02/2025 2:00 PM EST Office Visit Dermatology at [place] [address] [facility] [place] [address] Sam Johns MD [address], [address] [place] [address] documented as of this encounter Visit Diagnoses Not on filedocumented in this encounter Care Teams Position Classification Specialist Relationship Specialty Start Date End Date Wilma Nance MD [address] [place] [address] PCP - General Family Medicine 09/18/17 05/09/24 documented as of this encounter
--- OUTSIDE RECORDS SUMMARY | 2024-08-12 20:13 | XMS_ITS | Encounter Summary ---
Author Organization [facility] Address [address] [place] [address] Care Team Providers Care Modern Dancer Name Role Phone MikaelaCristy Delmi NOE Primary Care Provider [phone] Encounter Details Date Type Department Care Team (Late st Contact Info) Description 08/16/2016 Results Only [facility] [phone] Nuvia Cohen MD [address] [place] [address] Social History Tobacco Use Types Packs/Day Years [...] ? SHILOH ANDERSON ? Accession #: ? [id number] : ? 1945 (Age: 71) ??F ?Collect [...] cellular enhancement technique. ? End of Report [facility] 08/16/2016 08/19/2016 16: 13 EST us Nuvia Cohen MD PATHOLOGY ORDERABLES Final R esult [facility] [address] [place] [address] documented in this encounter Visit Diagnoses Not on filedocumented in this encounter Care Teams Modern Dancer Relationship Specialty Start Date End Date Cristy Al NP [facility] [address] [place], [place] [address] PCP - General 02/21/12 documented as of this encounter
--- OUTSIDE RECORDS SUMMARY | 2024-08-12 20:13 | XMS_ITS | Encounter Summary ---
Author Organization [facility] Address [facility] [address] Care Team Providers Care Electric Melt Operator Name Role Phone Wilma Nance MD Primary Care Provider [phone] Encounter Details Date Type Department Care Team (Late st Contact Info) Description 03/12/2024 1:00 PM EDT Office Visit Hematology/Oncology at [address] [phone] Sony Lyons MD [facility] [place] [address] Dottie Lira, NEWS ASSISTANT [address] [place] [address] DR HEMATOLOGY [place] [address] Malignant neoplasm of transverse colon Social History [...] Sign Reading Time Taken Comments Blood Pressure 152/87 03/12/2024 1:33 PM EDT Pulse 73 03/12/2024 1:33 PM EDT Temperature 36.1 ??C (96.9 ??F) 03/12/2024 1:33 PM ED T Respiratory Rate 22 03/12/2024 1:33 PM EDT Oxygen Saturation 95% 03/12/2024 1:33 PM EDT Inhaled Oxygen Concentration - - Weight 111.1 kg (245 lb) 03/12/2024 1:33 PM EDT Height 157.5 cm (5' 2.01) 03/12/2024 1:33 PM ED T Body Mass Index 44.8 03/12/2024 1:33 PM EDT documented in this encounter Progress Notes * Dottie Lira, NEWS ASSISTANT - 03/12/2024 1:00 PM EDT Images from the original note were not included. Subjective Patient ID: Shiloh Anderson is 78 [...] Category: pT3 pN Category: pN0 Prior Biopsy ([facility] Standard 2.1) A biopsy was performed and read elsewhere and reviewed: [id number] part B Additional Findings Additional Findings: None [...] change. - Deeper levels have been examined. F. CT c/a/p - 03/10/24 2. History of basal cell carcinoma 3. [...] surgery 22. Genetic testing 2022 - Result: [facility]-Expanded Panel showed no mutation was detected. A variant of uncertain significance (VUS) was detected in the BRCA1 gene, specifically c.2534T>G (p.I845R). HPI Shiloh is seen for evaluation and management of colon cancer. The history is summarized above. Shiloh is by herself in clinic today. Feeling generally well. Has been going to PT for balance issues, she hasn't been in the last month, and isn't quite sure it's helping. She's learning to live with this She does do her exercises at home. Bowels are working well for her, no blood in the stool. No pain. Appetite has been okay, weight is up. Soc Hx: Lives in [place], [place] Tob - Current (quits and restarts frequently) - she plans to try quitting again with the help of nicotine replacement and counseling. 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 BP 152/87 (Patient Position: Sitting) Pulse 73 Temp 36.1 ??C (96.9 ??F) (Temporal) Resp 22 Ht 157.5 cm (5' 2.01) Wt 111.1 kg (245 lb) SpO2 95% BMI 44.80 kg/m?? Labs: WBC/ANC - 5., Hgb/Hct - 12.7/39.7, Plts - 183,000. BUNCr - 17/1.0, remainder of CMP otherwise unremarkable CEA 03/10/24 3.7 11/14/23 3.2 05/16/23 3.2 02/05/23 3.6 04/29/22 2.8 Assessment [...] back to at least 2016. Dr. Lyons discussed this with radiology.They felt [...] in 09/2023. The pathology report is above. Dr. Jennings's office will be reaching out to schedule her next one, likely one year from the last. Clinically, she appears to be doing well. She will RTC in 6 months with Labs. documented in this encounter Plan of Treatment Upcoming Encounters Date Type Department Care Team (Late st Contact Info) Description 09/16/2024 2:30 PM EST Office Visit Hematology/Oncology at [address] [phone] Sony Lyons MD [facility] [place] [address] Dottie Lira APRN [address] [place] [address] DR HEMATOLOGY [place] [address] 06/02/2025 2:00 PM EST Office Visit Dermatology at [place] [address] [facility] [place] [phone] Sam Johns MD [address] [facility] [address], [place] [address] Scheduled Orders Name Type Priority Associated Diagnoses Orde r Schedule CBC (with Diff) Lab Routine Malignant neoplasm of transverse colon Expected: 09/12/2024, Expires: 03/12/2025 Comprehensive metabolic panel Lab Routine Malignant neoplasm of transverse colon Expected: 09/12/2024, Expires: 03/12/2025 CEA Lab Routine Malignant neoplasm of transverse colon Expected: 09/12/2024, Expires: 09/12/2024 documented as of this encounter Visit Diagnoses Diagnosis Malignant neoplasm of transverse colon documented in this encounter Care Teams Electric Melt Operator Relationship Specialty Start Date End Date Wilma Nance MD [address] [place] [address] PCP - General Family Medicine 09/18/17 05/09/24 documented as of this encounter
--- OUTSIDE RECORDS SUMMARY | 2024-08-12 20:13 | XMS_ITS | Encounter Summary ---
Author Organization [facility] Address [address] [place] [address] Care Team Providers Care Retail Custodial Associate Name Role Phone Sonia Valdez MD Primary Care Provide r Unavailable Encounter Details Date Type Department Care Team (Late st Contact Info) Description 02/18/2012 Results Only [facility] Services - [facility] [address] [place], [place] [id number] Cristian Mendoza DO [facility] [place] [address] Social History Tobacco Use Types Packs/Day Years [...] ? SHILOH ANDERSON ? Accession #: ? [id number] ? : ? 1945 (Age: 66) ??F ? Collect Date: ? 02/18/2012 ? Location: ? [facility] ? Receive Date: ? 02/19/2012 ? Provider: CRISTIAN MENDOZA DO Copy to: LEX SON NOUGAT CANDY MAKER HELPER ? Final Pathologic Diagnosis: ? 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 ??See comment. Comment: ? The sections show proliferative synovitis with lymphocytes and plasma cells. ??Although pathognomonic features of rheumatoid arthritis are not noted, the presence of plasma cells raises the possibility. ??Serologic studies may prove useful. ??Locker Attendant sections were reviewed at intradepartmental consultation conference. ??(Dr. Dickey)/[facility] ?? Document reviewed and electronically signed by: ALON DICKEY MD Report ??Date: 02/21/2012 12:53 By the signature above, the attending physician certifies that he/she has personally conducted a gross and/or microscopic examination of the described specimens and rendered or confirmed the above diagnosis. Specimen(s) Received: ? Synovium right knee Clinical History: ? rheumatoid disease Gross Description: ? Received in formalin labelled Shiloh Anderson and synovium right knee, ? rheumatoid disease is an 8.0 x 3.0 x 2.5 cm irregular portion of fibrofatty and fibromembranous tissue. ??One side of the specimen is covered by a cornejo-white, membranous lining that is diffusely covered by shaggy, pink-lenz, papillary excrescences. ??The remainder of the specimen consists of yellow, lobulated fibrofatty tissue with no nodules or masses present. ??Locker Attendant sections are submitted as (A1) through (A3). ??(Eloy Haines)/bhargav End of Report [facility] 02/18/2012 02/19/2012 8:4 6 EDT us Cristian Mendoza DO PATHOLOGY ORDERABLES Susie lutz Result Performing Organization Address City/State/[facility] Co de Phone Number [facility] [address] [place] [address] documented in this encounter Visit Diagnoses Not on filedocumented in this encounter Care Teams Retail Custodial Associate Relationship Specialty Start Date End Date Sonia Valdez MD PCP - General 02/19/12 7/01/06 documented as of this encounter
--- OUTSIDE RECORDS SUMMARY | 2024-08-12 20:13 | XMS_ITS | Encounter Summary ---
Author Organization [facility] Address [address] [place] [address] Care Team Providers Care Shoe Designer Name Role Phone Cristy Al NP Primary Care Provider [phone] Encounter Details Date Type Department Care Team (Late st Contact Info) Description 04/29/2022 Lab Requisition [facility] Pathology & Laboratory Medicine - [address] [phone] Outr Resulting Lab, Provider Social History Tobacco [...] 2.8 See Note ng/mL 04/29/2022 19:15 EDT [facility] Comment: % Distribution of [...] Unknown 04/29/2022 10:00 EDT 04/29/2022 17:42 EDT us Provider Outr Resulting Lab CHEMISTRY & BLOOD GA S ORDERABLES Final Result [facility] [address] [place] [address] documented in this encounter Visit Diagnoses Not on filedocumented in this encounter Care Teams Shoe Designer Relationship Specialty Start Date End Date Cristy Al NP [facility] [address] [place] [address] PCP - General 02/21/12 documented as of this encounter
--- OUTSIDE RECORDS SUMMARY | 2024-08-12 20:13 | XMS_ITS | Encounter Summary ---
Author Organization [facility] [place] [address] Care Team Providers Care School Community Relations Coordinator Name Role Phone Wilma Nance MD Primary Care Provider [phone] Encounter Details Date Type Department Care Team (Late Contact Info) Description 01/01/2024 Ancillary Procedure Radiology Library at [facility] [place] [phone] Wilma Nance MD [address] [place] [phone] Social History Tobacco Use Types Packs/Day Years [...] PM EST Office Visit Hematology/Oncology at [address] [phone] Sony Lyons MD [facility] [place] [place] [address] Dottie Lira APRN [address] [place] [address] DR [place] [address] 06/02/2025 2:00 PM EST Office Visit Dermatology at [place] [address] [place] [address] Sam Johns MD [address] [address], [place] [address] documented as of this encounter Procedures Procedure Name Priority Date/Time Associated Diagnosis Comments FILM LIBRARY STORAGE ONLY MR SPINE Routine 01/01/2024 12:00 AM EDT documented in this encounter Results * Film Library- Storage Only MR Spine (01/01/2024 12:00 AM EDT) Narrative [facility] - 02/10/2024 12:21 PM EDT This exam is auto-finalizing. It's purpose is for storage only. Wilma Nance MD IMG FILM LIBRARY ORD ERABLES Performing Organization Address City/State/[facility] Co de Phone Number [place], [place] documented in this encounter Visit Diagnoses Not on filedocumented in this encounter Care Teams School Community Relations Coordinator Relationship Specialty Start Date End Date Wilma Nance MD [address] [place] [address] PCP - General Family Medicine 09/18/17 05/09/24 documented as of this encounter
--- OUTSIDE RECORDS SUMMARY | 2024-08-12 20:13 | XMS_ITS | Encounter Summary ---
Author Organization [facility] Address [facility] [place] [address] Care Team Providers Care Check Writing Machine Operator Name Role Phone Wilma Nance MD Primary Care Provider [phone] Encounter Details Date Type Department Care Team (Latest Contact Info) Description 05/27/2024 Travel Social History Tobacco Use Types Packs/Day [...] 2:30 PM EST Office Visit Hematology/Oncology at [address] [phone] Sony Lyons MD [facility] [place] [address] Dottie Lira APRN [address] [place] [address] DR HEMATOLOGY AND ONCOLOGY [place], [place] [address] 06/02/2025 2:00 PM EST Office Visit Dermatology at [address] [place] [address] Sam Johns MD [address] [place] [address] RD, FU[address] A DERMATOLOGY [place], [place] [phone] documented as of this encounter Visit Diagnoses Not on filedocumented in this encounter Care Teams Check Writing Machine Operator Relationship Specialty Start Date End Date Wilma Nance MD [address] [place] [address] PCP - General Family Medicine 05/10/24 documented as of this encounter
--- OUTSIDE RECORDS SUMMARY | 2024-08-12 20:13 | XMS_ITS | Encounter Summary ---
Author Organization [facility] Address [address] [place] [address] Care Team Providers Care De Alcholizer Name Role Phone Cristy Al NP Primary Care Provider [phone] Encounter Details Date Type Department Care Team (Late st Contact Info) Description 10/28/2022 Lab Requisition [facility] Pathology & Laboratory Medicine - [address] [phone] Outr Resulting Lab, Provider Social History Tobacco [...] 3.7 See Note ng/mL 10/28/2022 18:53 EDT [facility] Comment: % Distribution of [...] Unknown 10/28/2022 10:42 EDT 10/28/2022 17:46 EDT us Provider Outr Resulting Lab CHEMISTRY & BLOOD GA S ORDERABLES Final Result [facility] [address] [place] [address] documented in this encounter Visit Diagnoses Not on filedocumented in this encounter Care Teams De Alcholizer Relationship Specialty Start Date End Date Cristy Al NP [facility] [address] [place] [address] PCP - General 02/21/12 documented as of this encounter
--- OUTSIDE RECORDS SUMMARY | 2024-08-12 20:14 | XMS_ITS | Encounter Summary ---
Author Organization [facility] [place] [address] Care Team Providers Care Oracle Ebs Consultant Name Role Phone Wilma Nance MD Primary Care Provider [phone] Encounter Details Date Type Department Care Team (Late Contact Info) Description 05/21/2021 Ancillary Procedure Radiology at [facility] [address] [place] [phone] Marion Abdalla MD [address] [facility] [place] [address] Social History Tobacco Use Types Packs/Day Years [...] 2:30 PM EST Office Visit Hematology/Oncology at [address] [phone] Sony Lyons MD [facility] [address] Dottie Lira APRN [address] [place] [address] DR [place] [address] 06/02/2025 2:00 PM EST Office Visit Dermatology at [place] [address] [facility] [address] [place] [address] Sam Johns MD [address], [place] [address] documented as of this encounter Procedures Procedure Name Priority Date/Time Associated Diagnosis Comments FILM LIBRARY STORAGE ONLY DX SPINE Routine 05/21/2021 12:00 AM EDT documented in this encounter Results * Film Library- Storage Only DX Spine (05/21/2021 12:00 AM EDT) Narrative RAD - 05/22/2021 11:09 AM EDT This exam is auto-finalizing. It's purpose is for storage only. Marion Abdalla MD IMG FILM LIBRARY ORDERABLES Performing Organization Address City/State/[facility] Co de Phone Number [place], [place] documented in this encounter Visit Diagnoses Not on filedocumented in this encounter Care Teams Oracle Ebs Consultant Relationship Specialty Start Date End Date Wilma Nance MD [address] [place] [address] PCP - General Family Medicine 09/18/17 05/09/24 documented as of this encounter
--- OUTSIDE RECORDS SUMMARY | 2024-08-12 20:14 | XMS_ITS | Encounter Summary ---
Author Organization [facility] Address [facility] [address] Care Team Providers Care Billing Administrator Name Role Phone Wilma Nance MD Primary Care Provider [phone] Encounter Details Date Type Department Care Team (Late Contact Info) Description 04/05/2021 Orders Only Sleep Center at [facility] [address] [place] [phone] Serenity Nair APRN Social History Tobacco Use Types Packs/Day Years [...] 2:30 PM EST Office Visit Hematology/Oncology at [address] [phone] Sony Lyons MD [facility] [place] [address] Dottie Lira APRN [address] [place] [address] DR HEMATOLOGY AND ONCOLOGY [place], [place] [id number] 06/02/2025 2:00 PM EST Office Visit Dermatology at [place] [address] [facility] [address] [place] [address] Sam Johns MD [address], [address] [place] [address] documented as of this encounter Visit Diagnoses Not on filedocumented in this encounter Care Teams Billing Administrator Relationship Specialty Start Date End Date Wilma Nance MD [address] [place] [address] PCP - General Family Medicine 09/18/17 05/09/24 documented as of this encounter
--- OUTSIDE RECORDS SUMMARY | 2024-08-12 20:14 | XMS_ITS | Encounter Summary ---
[place] [address] Care Team Providers Care Boat Pilot Name Role Phone Wilma Nance MD Primary Care Provider [phone] Reason for Visit * Reason Comments Annual Exam Encounter Details Date Type Department Care Team (Late st Contact Info) Description 02/05/2022 1:30 PM EDT Office Visit Dermatology at [address] [phone] Sam Johns MD [address] [place] [address], [facility] [place] [address] History of basal cell carcinoma; [place] (actinic [...] today also with her guide dog, a Arabic Delgadillo. She is a mother of 9 [...] PM EST Office Visit Hematology/Oncology at [address] [phone] Sony Lyons MD [facility] [place] [address] Dottie Lira FLIGHT OPERATIONS ENGINEER [address] [place] [address] DR [place] [address] 06/02/2025 2:00 PM EST Office Visit Dermatology at [address] [place] [phone] Sam Johns MD [address] [place] [address], [place] [address] documented as of this encounter Visit Diagnoses Diagnosis History of basal cell carcinoma Personal history of other malignant neoplasm of skin [place] (actinic keratosis) Actinic keratosis documented in this encounter Care Teams Boat Pilot Relationship Specialty Start Date End Date Wilma Nance MD [address] [place] [address] PCP - General Family Medicine 09/18/17 05/09/24 documented as of this encounter
--- OUTSIDE RECORDS SUMMARY | 2024-08-12 20:14 | XMS_ITS | Encounter Summary ---
[place] [address] Care Team Providers Care Passenger Flagman Name Role Phone Wilma Nance MD Primary Care Provider [phone] Reason for Visit * Reason Comments Skin Check Encounter Details Date Type Department Care Team (Late st Contact Info) Description 02/01/2021 3:45 PM EDT Office Visit Dermatology at [address] [phone] Sam Johns MD [address] [place] [address], [facility] DERMATOLOGY [place], [place] [id number] History of basal cell carcinoma; AK (actinic [...] to maintain her physicalabilities and enjoy the zoa-rh-bsbep. She continues her love for horse riding [...] 2:30 PM EST Office Visit Hematology/Oncology at [address] [phone] Sony Lyons MD [facility] [place] [address] Dottie Lira APRN [address] [place] [address] DR [place] [address] 06/02/2025 2:00 PM EST Office Visit Dermatology at [address] [place] [address] Sam Johns MD [address] [facility], FUAD [place] [address] documented as of this encounter Visit Diagnoses Diagnosis History of basal cell carcinoma Personal history of other malignant neoplasm of skin AK (actinic keratosis) Actinic keratosis documented in this encounter Care Teams Passenger Flagman Relationship Specialty Start Date End Date Wilma Nance MD [address] [place] [address] PCP - General Family Medicine 09/18/17 05/09/24 documented as of this encounter
--- OUTSIDE RECORDS SUMMARY | 2024-08-12 20:14 | XMS_ITS | Encounter Summary ---
Author Organization [facility] [place] [address] Care Team Providers Care Trimming Machine Set Up Operator Name Role Phone Wilma Nance MD Primary Care Provider [phone] Encounter Details Date Type Department Care Team (Late Contact Info) Description 03/30/2021 Telephone Sleep Center at [facility] [address] [place] [phone] Serenity Nair APRN Social History Tobacco Use [...] 2:30 PM EST Office Visit Hematology/Oncology at [address] [address] Sony Lyons MD [facility] [place] [address] Dottie Lira APRN [address] [place] [address] DR HEMATOLOGY AND ONCOLOGY [place], [place] [address] 06/02/2025 2:00 PM EST Office Visit Dermatology at [address] [place] [address] Sam Johns MD [address] [facility] [address], [place] [address] documented as of this encounter Visit Diagnoses Not on filedocumented in this encounter Care Teams Trimming Machine Set Up Operator Relationship Specialty Start Date End Date Wilma Nance MD [address] [place] [address] PCP - General Family Medicine 09/18/17 05/09/24 documented as of this encounter
--- OUTSIDE RECORDS SUMMARY | 2024-08-12 20:14 | XMS_ITS | Encounter Summary ---
[place] [address] Care Team Providers Care Commercial Internship Name Role Phone Wilma Nance MD Primary Care Provider [phone] Reason for Referral * Consultation (Routine) - Closed Specialty Diagnoses / Procedures Referred By Contac t Referred To Contact [facility] Diagnoses Lumbar postlaminectomy syndrome Other chronic pain Pain-Low back pain/MRI & XR 2020 in e-DH/? SCS Attending Rivera Goldstein DO [address] [place] [address] [place] [address] [facility] [place] [address] Referral ID Status Reason Start Date Expiration Date V isits Requested Visits Authorized [id number] Closed Consult, Test & Treat PCP Updated and/or Approved 10/28/2022 10/28/2023 1 1 Encounter Details Date Type Department Care Team (Latest Contact Info) Description 10/28/2022 Transcribe Orders eDH Incoming Referrals [phone] Rivera Goldstein DO [address] [place] [phone] Lumbar postlaminectomy syndrome; Other chronic pain [...] 2:30 PM EST Office Visit Hematology/Oncology at [address] [place] [address] Sony Lyons MD [facility] [address] Dottie Lira APRN [address] [place] [address] DR HEMATOLOGY [place] [address] 06/02/2025 2:00 PM EST Office Visit Dermatology at [place] [address] [facility] [place] [address] Sam Johns MD [address] [facility], [place] [address] Scheduled Referrals Name Type Priority Associated Diagnoses Orde r Schedule Referral to Pain Management Outpatient Referral Routine Lumbar postlaminectomy syndrome Other chronic pain Ordered: 10/28/2022 documented as of this encounter Visit Diagnoses Diagnosis Lumbar postlaminectomy syndrome Postlaminectomy syndrome, lumbar region Other chronic pain documented in this encounter Care Teams Commercial Internship Relationship Specialty Start Date End Date Wilma Nance MD [address] [place] [address] PCP - General Family Medicine 09/18/17 05/09/24 documented as of this encounter
--- OUTSIDE RECORDS SUMMARY | 2024-08-12 20:14 | XMS_ITS | Encounter Summary ---
Author Organization [facility] [place] [address] Care Team Providers Care Port Engineer Name Role Phone Wilma Nance MD Primary Care Provider [phone] Reason for Visit * Auth/Cert Specialty Diagnoses / Procedures Referred By Contac t Referred To Contact Diagnoses CARPAL TUNNEL SYNDROME Procedures PRO REVISE MEDIAN N/CARPAL TUNNEL SURG MEDIAN NERVE DECOMPRESSION (CARPAL TUNNEL RELEASE) (WRVU 4.97) Referral ID Status Reason Start Date Expiration Date Visits Re quested Visits Authorized [id number] 1 1 Encounter Details Date Type Department Care Team (Late st Contact Info) Description 05/29/2020 7:25 AM EST Anesthesia Event [facility] [place] [address] Esme Armstrong CRNA Anesthesia Record Procedure Summary Procedure Name Responsible [...] 0703; median cubital vein (antecubital fossa), left; eioa-tpn-syugwk catheter system; 20 gauge; ED; distraction; no [...] Procedure Summary Date: 05/29/20 Room / Location: [facility] OR MAIN OR Anesthesia Start: 724 Anesthesia Stop: 748 Procedure: MEDIAN NERVE DECOMPRESSION (CARPAL TUNNEL RELEASE) (WRVU 4.97) (Left Hand) Diagnosis: (CARPAL TUNNEL SYNDROME) Surgeon: Marion Abdalla MD Responsible Provider: Esme Armstrong CRNA Anesthesia Type: MAC ASA Status: 3 All Anesthesia Providers: ZACH Independent: Esme Armstrong CRNA Vitals Value Taken Time BP Temp Pulse Resp SpO2 Pain Level Patient Location: PACU/[facility] Level of Consciousness: Awake and Alert Pain [...] ??? Hypothyroid ??? Irregular heart beat ??? termination clerk current use of opiate analgesic ??? Mental [...] (LUMPECTOMY) performed by Yuval Rodas MD at [facility] ??? SHOULDER SURGERY Left semisphere replacement [...] 2:30 PM EST Office Visit Hematology/Oncology at [address] [address] Sony Lyons MD [facility] [place] [address] Dottie Lira APRN [address] [place] [address] DR [place] [address] 06/02/2025 2:00 PM EST Office Visit Dermatology at [place] [address] [facility] [address] [place] [address] Sam Johns MD [address] [facility], [place] [address] documented as of this encounter Visit Diagnoses [...] mg documented in this encounter Care Teams Port Engineer Relationship Specialty Start Date End Date Wilma Nance MD [address] [place] [address] PCP - General Family Medicine 09/18/17 05/09/24 documented as of this encounter
--- OUTSIDE RECORDS SUMMARY | 2024-08-12 20:14 | XMS_ITS | Encounter Summary ---
[place] [address] Care Team Providers Care Senior Sales Compensation Analyst Name Role Phone Wilma Nance MD Primary Care Provider [phone] Reason for Visit * Reason Comments Annual Exam Encounter Details Date Type Department Care Team (Late st Contact Info) Description 09/18/2017 10:30 AM EST Office Visit Dermatology at [address] [address] Sam Johns MD [address] [facility] [place] [address] History of basal cell carcinoma; [place] (actinic [...] 2:30 PM EST Office Visit Hematology/Oncology at [address] [phone] Sony Lyons MD [facility] [place] [address] Dottie Lira APRN [address] [place] [address] [place] [address] 06/02/2025 2:00 PM EST Office Visit Dermatology at [address] [place] [address] Sam Johns MD [address] [place] [address], [place] [address] documented as of this encounter Visit Diagnoses Diagnosis History of basal cell carcinoma Personal history of other malignant neoplasm of skin AK (actinic keratosis) Actinic keratosis documented in this encounter Care Teams Senior Sales Compensation Analyst Relationship Specialty Start Date End Date Wilma Nance MD [address] [place] [address] PCP - General Family Medicine 09/18/17 05/09/24 documented as of this encounter
--- OUTSIDE RECORDS SUMMARY | 2024-08-12 20:14 | XMS_ITS | Encounter Summary ---
Author Organization [facility] [place] [address] Care Team Providers Care Rug Cleaner Hand Name Role Phone Wilma Nance MD Primary Care Provider [phone] Encounter Details Date Type Department Care Team (Late st Contact Info) Description 05/22/2020 11:15 AM EDT Telephone Pre-Admission Testing at [facility] [place] [address] Social History Tobacco Use Types Packs/Day Years [...] [x]Yes []No Have you traveled outside the [facility] in the PAST 14 DAYS? []Yes [...] PM EST Office Visit Hematology/Oncology at [address] [address] Sony Lyons MD [facility] [place] [address] Dottie Lira APRN [address] [place] [address] DR [place] [address] 06/02/2025 2:00 PM EST Office Visit Dermatology at [place] [address] [facility] [place] [address] Sam Johns MD 580 [facility], [place] [address] documented as of this encounter Visit Diagnoses Not on filedocumented in this encounter Care Teams Rug Cleaner Hand Relationship Specialty Start Date End Date Wilma Nance MD [address] [place] [address] PCP - General Family Medicine 09/18/17 05/09/24 documented as of this encounter
--- OUTSIDE RECORDS SUMMARY | 2024-08-12 20:14 | XMS_ITS | Encounter Summary ---
Author Organization [facility] [place] [address] Care Team Providers Care Juice Bar Team Member Name Role Phone Wilma Nance MD Primary Care Provider [phone] Encounter Details Date Type Department Care Team (Late st Contact Info) Description 06/12/2020 9:00 AM EST Telephone Pre-Admission Testing at [place] [phone] Social History Tobacco Use Types Packs/Day Years [...] []Yes [x]No Have you traveled outside the [facility] in the PAST 14 DAYS? []Yes [...] 2:30 PM EST Office Visit Hematology/Oncology at [address] [address] Sony Lyons MD [facility] [place] [address] Dottie Lira APRN [address] [place] [address] DR HEMATOLOGY AND ONCOLOGY [place], [place] [address] 06/02/2025 2:00 PM EST Office Visit Dermatology at [place] [address] [facility] [place] [address] Sam Johns MD [address] [address], [place] [address] documented as of this encounter Visit Diagnoses Not on filedocumented in this encounter Care Teams Juice Bar Team Member Relationship Specialty Start Date End Date Wilma Nance MD [address] [place] [address] PCP - General Family Medicine 09/18/17 05/09/24 documented as of this encounter
--- OUTSIDE RECORDS SUMMARY | 2024-08-12 20:14 | XMS_ITS | Encounter Summary ---
Author Organization [facility] [place] [address] Care Team Providers Care Ripsaw Operator Name Role Phone Wilma Nance MD Primary Care Provider [phone] Encounter Details Date Type Department Care Team (Late st Contact Info) Description 07/03/2021 Ancillary Procedure Radiology Library at [facility] [place] [phone] Wilma Nance MD [address] [place], [place] [phone] Social History Tobacco Use Types Packs/Day Years [...] 2:30 PM EST Office Visit Hematology/Oncology at [address] [address] Sony Lyons MD [facility] [place] [address] Dottie Lira APRN [address] [place] [address] DR [place] [address] 06/02/2025 2:00 PM EST Office Visit Dermatology at [place] [address] [facility] [place] [address] Sam Johns MD [address] [facility] [address], FU[place] [address] documented as of this encounter Procedures Procedure Name Priority Date/Time Associated Diagnosis Comments FILM LIBRARY STORAGE ONLY DX SPINE Routine 07/03/2021 12:00 AM EST documented in this encounter Results * Film Library- Storage Only DX Spine (07/03/2021 12:00 AM EST) Narrative [facility] - 12/27/2021 3:40 PM EDT This exam is auto-finalizing. It's purpose is for storage only. Wilma Nance MD IMG FILM LIBRARY ORD ERABLES Performing Organization Address City/State/RUST Co de Phone Number [place], [place] documented in this encounter Visit Diagnoses Not on filedocumented in this encounter Care Teams Ripsaw Operator Relationship Specialty Start Date End Date Wilma Nance MD [address] [place] [address] PCP - General Family Medicine 09/18/17 05/09/24 documented as of this encounter
--- OUTSIDE RECORDS SUMMARY | 2024-08-12 20:14 | XMS_ITS | Encounter Summary ---
Author Organization [facility] [place] [address] Care Team Providers Care Pig Breeder Name Role Phone Wilma Nance MD Primary Care Provider [phone] Encounter Details Date Type Department Care Team (Latest Contact Info) Description 05/18/2019 1:00 PM EDT Ancillary Procedure Radiology X[facility] at [address] [place] [address] Marion Abdalla MD S/P lumbar fusion Social History Tobacco Use [...] 2:30 PM EST Office Visit Hematology/Oncology at [address] [address] Sony Lyons MD [facility] [place] [address] Dottie Lira APRN [address] [place] [address] DR HEMATOLOGY AND ONCOLOGY [place], [place] [phone] 06/02/2025 2:00 PM EST Office Visit Dermatology at [place] [address] [facility] [address] [place] [address] Sam Johns MD [address] [facility] [address], [place] [address] documented as of this encounter Procedures Procedure [...] report, please contact the number below. ? Electronically signed by: Elena Barrow [facility] ([phone]), at 05/18/2019 2:54 PM Narrative 05/18/2019 2:54 PM EDT EXAMINATION: XR [...] this report, please contact the number below. Electronically signed by: Elena Barrow [facility]([phone]), at 05/18/2019 2:54 PM Marion Abdalla MD IMG DX ORDERABLES documented in this encounter Visit Diagnoses Diagnosis S/P lumbar fusion Arthrodesis status documented in this encounter Care Teams Pig Breeder Relationship Specialty Start Date End Date Wilma Nance MD [address] [place] [address] PCP - General Family Medicine 09/18/17 05/09/24 documented as of this encounter
--- OUTSIDE RECORDS SUMMARY | 2024-08-12 20:14 | XMS_ITS | Encounter Summary ---
Author Organization [facility] [place] [address] Care Team Providers Care Script Developer Name Role Phone Wilma Nance MD Primary Care Provider [phone] Reason for Visit * Auth/Cert Specialty Diagnoses / Procedures Referred By Contac t Referred To Contact Diagnoses CARPAL TUNNEL SYNDROME Procedures PRO REVISE MEDIAN N/CARPAL TUNNEL SURG MEDIAN NERVE DECOMPRESSION (CARPAL TUNNEL RELEASE) (WRVU 4.97) Referral ID Status Reason Start Date Expiration Date Visits Re quested Visits Authorized [id number] 1 1 Encounter Details Date Type Department Care Team (Latest Contact Info) Description 05/29/2020 6:36 AM EST - 05/29/2020 8:50 AM EST Hospital Encounter Post Acute Care Unit at [facility] [address] [facility] [place] [address] Marion Abdalla MD [address] [facility] [place] [address] Carpal tunnel syndrome on left Discharge Disposition: [...] another scheduled follow-up appointment awith a Physician???s Customs Collector 4-6 weeksfrom the date of surgery. ??? [...] to stop taking it. ??? Only take [id number] or prescription medicine for pain, discomfort or [...] weakness or numbness. SMOKING CESSATION INFORMATION: ??? [place] QUITLINE: ??? [place] QUITLINE: ??? www.Deeplink If you smoke, stop now! Smoking may impede healing. MAKE SURE YOU: ??? Understand these instructions. ??? Will seek medical care if you are feeling poor, or get worse. ??? Will call the office with any questions or concerns at: [phone]. The above information has been presented or [...] by mouth daily. Narcan 4 mg/actuation [place], Non-Aerosol ADMINISTER 1 SYRINGE FULL IN NOSTRIL NEEDED FOR EXCESSIVE SEDATION FROM CHRONIC OPIATE USE 01/06/2020 levothyroxine (SYNTHROID) 175 mcg Tablet Take 175 mcg by mouth daily. 0 08/04/2017 oxyCODONE-acetaminophen (PERCOCET) 10-325 mg Tablet Take 1 tablet by mouth every 4 hours as needed. 08/26/2016 celecoxib (CeleBREX) 200 mg Capsule TK 1 C PO BID 04/25/2020 cyclobenzaprine (FLEXERIL) 10 mg Tablet TAKE 1 TABLET BY MOUTH 3 TIMES A DAY NEEDED DO NOT USE BEFORE DRIVING 0 11/26/2018 ESTRACE 0.01 % (0.1 mg/gram) Cream apply 2 grams vaginally two times a week 1 06/24/2017 gabapentin (NEURONTIN) 600 mg Tablet Take 600 [...] Abdalla MD - 05/29/2020 7:55 AM EST [facility] Operative Note [facility] [address] [place] [address] Patient Name: Shiloh Anderson : [id number] MR#: [id number] Case Date: 05/29/2020 Surgeon: Surgeon(s) and Role: [...] nerve until full decompression was obtained. A Dale was used distally and proximally to confirm [...] 2:30 PM EST Office Visit Hematology/Oncology at [address] [phone] Sony Lyons MD [facility] [place] [place] [address] Dottie Lira APRN [address] [place] [address] DR HEMATOLOGY AND ONCOLOGY [place] [address] 06/02/2025 2:00 PM EST Office Visit Dermatology at [address] [place] [address] Sam Johns MD [address] [facility] [address], ANABEL A DERMATOLOGY [place], [place] [address] documented as of this encounter Procedures Procedure Name Priority Date/Time Associated Diagnosis Comments Revise Median N/Carpal Tunnel Surg (18646) 05/29/2020 7:25 AM EST CARPAL TUNNEL SYNDROME [...] MD) documented in this encounter Care Teams Script Developer Relationship Specialty Start Date End Date Wilma Nance MD [address] [place] [address] PCP - General Family Medicine 09/18/17 05/09/24 documented as of this encounter
--- OUTSIDE RECORDS SUMMARY | 2024-08-12 20:14 | XMS_ITS | Encounter Summary ---
[place] [address] Care Team Providers Care Cardiac Rehabilitation Program Director Name Role Phone Wilma Nance MD Primary Care Provider [phone] Reason for Visit * Reason Comments Annual Exam Encounter Details Date Type Department Care Team (Late st Contact Info) Description 03/11/2023 11:30 AM EDT Office Visit Dermatology at [address] [address] Sam Johns MD [address] [facility] A DERMATOLOGY [place], [place] [address] History of basal cell carcinoma; [place] (actinic [...] Today she is not here with her Hungarian Delgadillo got a dog. She has an [...] refills. This will be called into the [facility] pharmacy in [facility]. Seborrheic keratosis, irritated, right base of neck 1. Could consider LN 2 x 2 who the site. CC: Wilma Nance MD documented in this encounter Plan of Treatment Upcoming Encounters Date Type Department Care Team (Late st Contact Info) Description 09/16/2024 2:30 PM EST Office Visit Hematology/Oncology at [address] [address] Sony Lyons MD [facility] [place] [address] Dottie Lira APRN [address] [place] [address] DR HEMATOLOGY [place] [address] 06/02/2025 2:00 PM EST Office Visit Dermatology at [place] [address] [facility] [place] [address] Sam Johns MD [address] [facility], FUAD Geraldo DERMATOLOGY [place], [place] [address] documented as of this encounter Visit Diagnoses Diagnosis History of basal cell carcinoma Personal history of other malignant neoplasm of skin AK (actinic keratosis) Actinic keratosis documented in this encounter Care Teams Cardiac Rehabilitation Program Director Relationship Specialty Start Date End Date Wilma Nance MD [address] [place] [address] PCP - General Family Medicine 09/18/17 05/09/24 documented as of this encounter
--- OUTSIDE RECORDS SUMMARY | 2024-08-12 20:14 | XMS_ITS | Encounter Summary ---
Author Organization [facility] Address [facility] [place] [address] Care Team Providers Care Optical Mechanic Name Role Phone Wilma Nance MD Primary Care Provider [phone] Encounter Details Date Type Department Care Team [...] PM EST Office Visit Hematology/Oncology at [address] [phone] Sony Lyons MD [facility] [place] [address] Dottie Lira APRN [address] [place] [address] DR HEMATOLOGY AND ONCOLOGY [place], [place] [address] 06/02/2025 2:00 PM EST Office Visit Dermatology at [address] [place] [address] Sam Johns MD [address] [facility] [address], FUAD A DERMATOLOGY [place], [place] [address] documented as of this encounter Visit Diagnoses Not on filedocumented in this encounter Care Teams Optical Mechanic Relationship Specialty Start Date End Date Wilma Nance MD [address] [place] [address] PCP - General Family Medicine 09/18/17 05/09/24 documented as of this encounter
--- OUTSIDE RECORDS SUMMARY | 2024-08-12 20:14 | XMS_ITS | Encounter Summary ---
Author Organization Formerly [facility] [address] Care Team Providers Care Grape Picker Name Role Phone Wilma Nance MD Primary Care Provider [phone] Encounter Details Date Type Department Care Team (Late Contact Info) Description 05/29/2021 10:40 PM EDT Ancillary Procedure Radiology at [facility] [address] [place] [address] Marion Abdalla MD [address] [facility] [place] [address] Social History Tobacco Use Types Packs/Day Years [...] PM EST Office Visit Hematology/Oncology at [address] [phone] Sony Lyons MD [facility] [place] [address] Dottie iLra APRN [address] [place] [address] DR [place] [address] 06/02/2025 2:00 PM EST Office Visit Dermatology at [place] [address] [place] [address] Sam Johns MD [address], [place] [address] documented as of this encounter Procedures Procedure Name Priority Date/Time Associated Diagnosis Comments FILM LIBRARY STORAGE ONLY MR SPINE Routine 05/29/2021 10:39 PM EDT documented in this encounter Results * Film Library- Storage Only MR Spine (05/29/2021 10:39 PM EDT) Narrative RAD - 05/29/2021 10:39 PM EDT This exam is auto-finalizing. It's purpose is for storage only. Marion Abdalla MD IMG FILM LIBRARY ORDERABLES [place], [place] documented in this encounter Visit Diagnoses Not on filedocumented in this encounter Care Teams Grape Picker Relationship Specialty Start Date End Date Wilma Nance MD [address] [place] [address] PCP - General Family Medicine 09/18/17 05/09/24 documented as of this encounter
--- OUTSIDE RECORDS SUMMARY | 2024-08-12 20:14 | XMS_ITS | Encounter Summary ---
Author Organization [facility] Address [facility] [place] [address] Care Team Providers Care Garden Center Manager Name Role Phone Wilma Nance MD Primary Care Provider [phone] Encounter Details Date Type Department Care Team (Late Contact Info) Description 09/29/2018 Interpretation Only [facility] [address] [place] [phone] Marion Abdalla MD Social History Tobacco Use Types Packs/Day Years [...] PM EST Office Visit Hematology/Oncology at [address] [phone] Sony Lyons MD [facility] [place] [address] Dottie Lira APRN [address] [place] [address] DR HEMATOLOGY AND ONCOLOGY [place], [place] [address] 06/02/2025 2:00 PM EST Office Visit Dermatology at [place] [address] [place] [address] Sam Johns MD [address], [place] [address] documented as of this encounter Procedures Procedure [...] contact the number below. Electronically signed by: JOSEPH Moore [facility]([phone]), at 09/29/2018 3:52 PM Marion Abdalla MD IMG DX ORDERABLES documented in this encounter Visit Diagnoses Not on filedocumented in this encounter Care Teams Garden Center Manager Relationship Specialty Start Date End Date Wilma Nance MD [address] [place] [address] PCP - General Family Medicine 09/18/17 05/09/24 documented as of this encounter
--- OUTSIDE RECORDS SUMMARY | 2024-08-12 20:14 | XMS_ITS | Encounter Summary ---
Author Organization [facility] Address [facility] [place] [address] Care Team Providers Care Computer Engineer Name Role Phone Wilma Nance MD Primary Care Provider [phone] Encounter Details Date Type Department Care Team (Late Contact Info) Description 05/18/2018 External Results Laboratory at [facility] [place] [address] Marion Abdalla MD Social History Tobacco Use [...] 2:30 PM EST Office Visit Hematology/Oncology at [address] [phone] Sony Lyons MD [facility] [place] [address] Dottie Lira APRN [address] [place] [address] DR HEMATOLOGY AND ONCOLOGY [place] [id number] 06/02/2025 2:00 PM EST Office Visit Dermatology at [place] [address] [facility] [place] [phone] Sam Johns MD [address], [place] [address] documented as of this encounter Procedures Procedure Name Priority Date/Time Associated Diagnosis Comments HEMOGRAM Routine 05/18/2018 11:20 AM EDT documented in this encounter Results * (ABNORMAL) Hemogram (05/18/2018 11:20 AM EDT) White Blood Cell 7.4(Exter nal Lab) 4.0 - 10.0 10^3/uL [facility] Red Blood Cell 4.09(Exte rnal Lab) 3.93 - 5.22 10^6/uL [facility] Hemoglobin 12.8(Exte rnal Lab) 11.2 - 15.7 g/dL [facility] Hematocrit 40.0(Exte rnal Lab) 34.0 - 45.0 % [facility] Mean Cell Volume 97.8(ExtH ) 79.0 - 94.0 fL [facility] Mean Cell Hemoglobin 31.3(Exte rnal Lab) 26.6 - 32.2 pg [facility] Mean Cell Hemoglobin Concentration 32.0(Exte rnal Lab) 32.0 - 36.5 g/dL [facility] RDW coefficient of variation 13.9(Exte rnal Lab) 10.9 - 14.4 % [facility] RDW Standard Deviation 48(ExtH) 35 - 46 fL [facility] Platelet 203(Exter nal Lab) 145 - 370 10^3/uL [facility] Mean Platelet Volume 9.9(Exter nal Lab) 9.0 - 12.0 fL [facility] Peripheral Smear Review NO(Attorney At Law al Lab) [facility] 05/18/2018 11:2 0 AM EDT 05/18/2018 11:28 AM EDT Narrative [facility] - 05/18/2018 11:35 AM EDT Outpatient Diag: PRE OP Marion Abdalla MD HEMATOLOGY ORDERABL ES [facility] 10 [place] [address] documented in this encounter Visit Diagnoses Not on filedocumented in this encounter Care Teams Computer Engineer Relationship Specialty Start Date End Date Wilma Nance MD [address] [place] [address] PCP - General Family Medicine 09/18/17 05/09/24 documented as of this encounter
--- OUTSIDE RECORDS SUMMARY | 2024-08-12 20:14 | XMS_ITS | Encounter Summary ---
Author Organization [facility] [place] [address] Care Team Providers Care Carroting Machine Offbearer Name Role Phone Wilma Nance MD Primary Care Provider [phone] Reason for Visit * Auth/Cert Specialty Diagnoses / Procedures Referred By Contac t Referred To Contact Diagnoses Right Carpal Tunnel Syndrome Procedures PRO REVISE MEDIAN N/CARPAL TUNNEL SURG MEDIAN NERVE DECOMPRESSION (CARPAL TUNNEL RELEASE) (WRVU 4.97) Referral ID Status Reason Start Date Expiration Date Visits Re quested Visits Authorized [id number] 1 1 Encounter Details Date Type Department Care Team (Latest Contact Info) Description 06/20/2020 6:03 AM EST - 06/20/2020 8:38 AM EST Hospital Encounter Post Acute Care Unit at [facility] 10 [place] [address] Marion Abdalla MD [address] [place] [address] Carpal tunnel syndrome on right Discharge Disposition: [...] another scheduled follow-up appointment awith a Physician???s Regional Recruiter 4-6 weeksfrom the date of surgery. ??? [...] to stop taking it. ??? Only take adiq-oip-lfrkdoe or prescription medicine for pain, discomfort or [...] ??? [place] QUITLINE: ??? [place] QUITLINE: ??? www.At [employer] If you smoke, stop now! Smoking may impede healing. MAKE SURE YOU: ??? Understand these instructions. ??? Will seek medical care if you are feeling poor, or get worse. ??? Will call the office with any questions or concerns at: [phone]. The above information has been presented or [...] tablet by mouth daily. Narcan 4 mg/actuation [facility], Non-Aerosol ADMINISTER 1 SYRINGE FULL IN NOSTRIL [...] vaginally two times a week 1 06/24/2017 fluticasone propionate (FLONASE) 50 mcg/actuation [facility], Suspension 2 sprays by Each Nare route [...] Abdalla MD - 06/20/2020 8:00 AM EST [facility] Operative Note [facility] [place] [address] [place] [address] Patient Name: Shiloh Anderson : [id number] MR#: [id number] Case Date: 06/20/2020 Surgeon: Surgeon(s) and Role: * Marion Abdalla MD - Primary * Fede Dunn PA - Physician Regional Recruiter Preoperative diagnosis: Right Carpal Tunnel Syndrome Postoperative [...] nerve until full decompression was obtained. A [place] was used distally and proximally to confirm [...] the duration of the operative session. The behavioral health assistant adequately prepped the operative site and maintained the best possible exposure of anatomy incident to the procedure. Marion bAdalla MD 06/20/2020 documented in this encounter Plan of Treatment Upcoming Encounters Date Type Department Care Team (Late st Contact Info) Description 09/16/2024 2:30 PM EST Office Visit Hematology/Oncology at [address] [phone] Sony Lyons MD [facility] [place] [address] Dottie Lira APRN [address] [place] [address] [place] [address] 06/02/2025 2:00 PM EST Office Visit Dermatology at [place] [address] [place] [phone] Sam Johns MD [address], [place] [address] documented as of this encounter Procedures Procedure Name Priority Date/Time Associated Diagnosis Comments Revise Median N/Carpal Tunnel Surg (09082) Yes 06/20/2020 7:26 AM EST Right Carpal [...] 1,000 mg, Oral, ONCE, 1 dose, On 06/20/20 at 0645, Administer with SIP of H2O only., Day of Surgery (Day of Procedure), Routine 0659 (Given - Provid er: Shanti Morrissey RN) ceFAZolin (Ancef) 2 g in dextrose 5% 100 mL infusion (COMPLETED) 2 g, Intravenous, ONCE, 1 dose, On 06/20/20 at 0645, Administer over 30 Minutes, To [...] MD) documented in this encounter Care Teams Carroting Machine Offbearer Relationship Specialty Start Date End Date Wilma Nance MD [address] [place] [address] PCP - General Family Medicine 09/18/17 05/09/24 documented as of this encounter
--- OUTSIDE RECORDS SUMMARY | 2024-08-12 20:14 | XMS_ITS | Encounter Summary ---
[place] [address] Care Team Providers Care Senior Network Security Engineer Name Role Phone Wilma Nance MD Primary Care Provider [phone] Encounter Details Date Type Department Care Team (Late st Contact Info) Description 02/05/2023 1:30 PM EDT Office Visit Hematology/Oncology at [address] [phone] Dottie Lira MECHANIC DRIVER [address] [place] [address] [place] [address] Malignant neoplasm of sigmoid colon [...] 02/05/2023 1:30 PM EDT Subjective Patient ID: Shiloh Anderson is 77 [...] Category: pT3 pN Category: pN0 Prior Biopsy ([facility] Standard 2.1) A biopsy was performed and read elsewhere and reviewed: [id number] part B Additional Findings Additional Findings: None [...] to lose weight. Soc Hx: Lives in [place], [place] Tob - Current (quits and restarts frequently) - she plans to try quitting again with the help of nicotine replacement and counseling. 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; [...] PM EST Office Visit Hematology/Oncology at [address] [phone] Sony Loyns MD [facility] [address] Dottie Lira APRN [address] [place] [address] DR [place] [address] 06/02/2025 2:00 PM EST Office Visit Dermatology at [place] [address] [facility] [place] [address] Sam Johns MD [address] [facility] [place] [address] documented as of this encounter Visit Diagnoses Diagnosis Malignant neoplasm of sigmoid colon documented in this encounter Care Teams Senior Network Security Engineer Relationship Specialty Start Date End Date Wilma Nance MD [address] [place] [address] PCP - General Family Medicine 09/18/17 05/09/24 documented as of this encounter
--- OUTSIDE RECORDS SUMMARY | 2024-08-12 20:14 | XMS_ITS | Encounter Summary ---
[place] [address] Care Team Providers Care Electron Beam Photo Mask Technician Name Role Phone Wilma Nance MD Primary Care Provider [phone] Reason for Referral * Consultation (Routine) - Closed Specialty Diagnoses / Procedures Referred By Contac t Referred To Contact Hematology and Oncology Diagnoses Malignant neoplasm of sigmoid colon Sony Lyons MD [facility] [place] [address] [facility] Hem Onc [address] [place] [phone] Referral ID Status Reason Start Date Expiration Date V isits Requested Visits Authorized [id number] Closed Consult, Test & Treat 07/26/2022 07/26/2023 1 1 Reason for Visit * Consultation (ARPITA) - Closed Specialty Diagnoses / Procedures Referred By Contac t Referred To Contact Hematology and Oncology Diagnoses Malignant neoplasm of colon, unspecified 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 Procedures CONSULTATION Ghislaine Carrillo MD [address] [place] [address] [facility] Hem Onc [address] [place] [phone] Referral ID Status Reason Start Date Expiration Date Visits Re quested Visits Authorized [id number] Closed 05/24/2022 05/24/2023 1 1 Encounter Details Date Type Department Care Team (Late st Contact Info) Description 07/26/2022 3:00 PM EST Office Visit Hematology/Oncology at [address] [phone] Sony Lyons MD [facility] [place] [address] Malignant neoplasm of sigmoid colon Social History [...] Category: ??pT3 ?pN Category: ??pN0 [facility]) ?A biopsy was performed and read elsewhere and reviewed: ??[id number] part B Additional Findings ?Additional Findings: ??None [...] knee. She is followed Dr. Abdalla in [place]. Her incision is well healed. Her bowels are better than they were prior to the surgery. She goes 1-2 times per day. She has felt less fatigued as well. Her appetite is good. She has lost 30-40#, intentionally. Soc Hx: Lives in [place], [place] Tob - Current (quits and restarts frequently) - she plans to try quitting again with the help of nicotine replacement and counseling. 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 [ ] disabled State Need FMLA paperwork [...] 2:30 PM EST Office Visit Hematology/Oncology at [address] [phone] Sony Lyons MD [facility] [place] [address] Dottie Lira APRN [address] [place] [address] DR HEMATOLOGY [place] [address] 06/02/2025 2:00 PM EST Office Visit Dermatology at [place] 580 [place] [address] Sam Johns MD [address] [facility] [place] [address] Scheduled Referrals Name Type Priority Associated Diagnoses Orde r Schedule Referral to Familial Cancer Outpatient Referral Routine Malignant neoplasm of sigmoid colon Ordered: 07/26/2022 documented as of this encounter Visit Diagnoses Diagnosis Malignant neoplasm of sigmoid colon documented in this encounter Care Teams Electron Beam Photo Mask Technician Relationship Specialty Start Date End Date Wilma Nance MD [address] [place] [address] PCP - General Family Medicine 09/18/17 05/09/24 documented as of this encounter
--- OUTSIDE RECORDS SUMMARY | 2024-08-12 20:14 | XMS_ITS | Encounter Summary ---
Author Organization [facility] [place] [address] Care Team Providers Care Dynamotor Repairer Name Role Phone Wilma Nance MD Primary Care Provider [phone] Encounter Details Date Type Department Care Team (Late st Contact Info) Description 04/29/2022 Ancillary Procedure Radiology Library at [facility] [place] [phone] Wilma Nance MD [address] [place], [place] [phone] Social History Tobacco Use Types Packs/Day Years [...] PM EST Office Visit Hematology/Oncology at [address] [phone] Sony Lyons MD [facility] [place] [address] Dottie Lira APRN [address] [place] [address] [place] [address] 06/02/2025 2:00 PM EST Office Visit Dermatology at [place] [address] [place] [address] Sam Johns MD [address], [place] [address] documented as of this encounter Procedures Procedure Name Priority Date/Time Associated Diagnosis Comments FILM LIBRARY STORAGE ONLY CT CHEST ABDOMEN PELVIS Routine 04/29/2022 12:00 AM EDT documented in this encounter Results * Film Library- Storage Only CT Chest Abdomen Pelvis (04/29/2022 12:00 AM EDT) Narrative [facility] - 06/21/2022 2:23 PM EST This exam is auto-finalizing. It's purpose is for storage only. Wilma Nance MD IMG FILM LIBRARY ORD ERABLES [place], [place] documented in this encounter Visit Diagnoses Not on filedocumented in this encounter Care Teams Dynamotor Repairer Relationship Specialty Start Date End Date Wilma Nance MD [address] [place] [address] PCP - General Family Medicine 09/18/17 05/09/24 documented as of this encounter
--- OUTSIDE RECORDS SUMMARY | 2024-08-12 20:14 | XMS_ITS | Encounter Summary ---
Author Organization [facility] Address [facility] [place] [address] Care Team Providers Care Crm Marketing Executive Name Role Phone Wilma Nance MD Primary Care Provider [phone] Encounter Details Date Type Department Care Team (Late st Contact Info) Description 05/09/2022 External [place] [phone] Social History Tobacco Use Types Packs/Day Years [...] 2:30 PM EST Office Visit Hematology/Oncology at [address] [phone] Sony Lyons MD [facility] [place] [address] Dottie Lira APRN [address] [place] [address] DR HEMATOLOGY AND ONCOLOGY [place], [place] [address] 06/02/2025 2:00 PM EST Office Visit Dermatology at [address] [place] [address] Sam Johns MD [address] [facility] [place] [address] documented as of this encounter Procedures Procedure Name Priority Date/Time Associated Diagnosis Comments ECG SCAN Routine 05/09/2022 documented in this encounter Results * Scan Doc: ECG (05/09/2022) Historical Provider MEDIA MGR SCAN EX T ORDR/RSLT documented in this encounter Visit Diagnoses Not on filedocumented in this encounter Care Teams Crm Marketing Executive Relationship Specialty Start Date End Date Wilma Nance MD [address] [place] [address] PCP - General Family Medicine 09/18/17 05/09/24 documented as of this encounter
--- OUTSIDE RECORDS SUMMARY | 2024-08-12 20:14 | XMS_ITS | Encounter Summary ---
Author Organization [facility] [place] [address] Care Team Providers Care Wood Turner Name Role Phone Wilma Nance MD Primary Care Provider [phone] Reason for Visit * Consultation (Routine) - Closed Specialty Diagnoses / Procedures Referred By Contac t Referred To Contact Sleep Center Diagnoses Obstructive sleep apnea (adult) (pediatric) Sleep apnea, unspecified Wilma Nance MD [address] [place] [address] [facility] Sleep Medicine [address] [place] [address] Referral ID Status Reason Start Date Expiration Date V isits Requested Visits Authorized [id number] Closed Consult, Test & Treat Connection Center PCP Updated and/or Approved 12/22/2020 12/22/2021 12 12 Encounter Details Date Type Department Care Team (Latest Contact Info) Description 03/26/2021 1:00 PM EDT TH Visit (TeleHealth) Sleep Center at [facility] [address] [place] [address] Serenity Nair APRN SUGEY treated with BiPAP (Primary Dx); Daytime [...] Recommendations: --Please register your device on the Tap[employer] web site, or by phoning them. She has not done so yet. --Do not buy or use a ozone generating PAP cleaning device with the Sezion 1 machine. --Contact us if patient develops airway irritation symptoms, headaches or other symptoms that they feel may be related to BPAP use. --She will contact [facility] to fax us their sleep studies and most recent data download. Fax to: [phone] --Once I review, I will contact her for next steps; --With change of DME, she may need repeat sleep studies to requalify for replacement machine (if not replaced through recall registration) and nocturnal oxygen Ongoing CPAP/BPAP tips: --Visit www.sleepeducation.org for information on sleep apnea, sleep studies, treatment options --Continue BPAP 10cw for now --Call DME company (when assigned new one) for questions on machine, supply replacements, billing, and for confirming compliance met --Adjust mask straps nightly while laying down with machine on, just to snug, for best fit; do not overtighten as it can cause discomfort and greater mask leak --Suggest PadACheek cloth mask liner for comfort or mask leak: for information, call [phone] or go to [email or web address] --If dry mouth: 1) adjust humidity up [...] for manyyears now at [facility] ([facility]) in [place], [place]. Her last sleep study there was 3-5 years ago. She has followed up with them since 2012 for sleep apnea and restless legs, via Dr. Spears. Last seen October 2020 where data download was reviewed. No download available today. She is on O2 at 2lpm bled into BPAP. DME is [place] and she obtained BPAP machine and oxygen from them. She is not happy with them and would like a change of DME and she wants to transfer Sleep Medicine care to us. She has a funeral service apprentice at [facility], r/t hx COPD. Last seen a month ago, can't recall women's name. She went for follow up, had CT scan--results reported WNLs, provider noted lungs sounded very good. Reports her machine has been recalled, received a letter from [facility] about it. HPI continues below. Patient in [place], [place] Visit via video Patient provided verbal [...] receiving sleep study notes, selected history from [facility] (pgs 53+/65): 10/27/2015 CPAP/BPAP titration, was not started on O2 with BPAP at that time for unknown reasons; recommendations: BPAP 18/14cw or autoBPAP Imax 19cw, Patrick 10, PS 4, 2lpm O2. [employer] [facility]FM med or Amira Lujan small. 11/25/16 overnight oximetry on BPAP: SpO2 [...] 23/10cw PS 4 with O2 at 3lpm, loyda Schwartz padacheek recommended for leak PLMS 77.8/hr PLMai 5.6/hr Treatment: BPAP Device: Respironics REMstar System One Pressure: Addendum: KMP says autoBPAP Imax 23, Patrick 10cw, PS 4, Biflex 1 Pressure Intolerance: feels like it's hard to exhale Supplemental oxygen? Yes, 2lpm O2 bled into BPAP Interface/Mask/Chin Strap: Amira Lujan, abelino Difficulty tolerating mask interface: no Difficulty Breathing Through Nose/Mouth Breathing: no HCC: [facility], wanted to [facility] Sleep Pattern: Bed/Recliner/Wedge: bed, adjustable, no partner [...] (LUMPECTOMY) performed by Yuval Rodas MD at [facility] ??? PRO REVISE MEDIAN N/CARPAL TUNNEL SURG Left 05/29/2020 MEDIAN NERVE DECOMPRESSION (CARPAL TUNNEL RELEASE) (WRVU 4.97) performed by Marion Abdalla MD at [facility] MAIN OR ??? PRO REVISE MEDIAN N/CARPAL TUNNEL SURG Right 06/20/2020 MEDIAN NERVE DECOMPRESSION (CARPAL TUNNEL RELEASE) (WRVU 4.97) performed by Marion Abdalla MD at [facility] MAIN OR ??? REVISION TOTAL KNEE ARTHROPLASTY [...] Incontinence urge ??? Irregular heart beat ??? intermediate current use of opiate analgesic ??? Mental health problem Depression ??? Murmur, heart ??? Obstructive sleep apnea ??? SUGEY on CPAP ??? Oxygen dependent with CPAP ??? Sepsis due to gram-negative UTI 2016 ??? Thyroid disease hypothyroid Problem List: Patient [...] 2lpm nocturnal O2 recommended, then followed by [facility] Sleep Medicine in [place], [place], where they placed her on BPAP [...] apnea reviewed. Requested she send copies of [facility] sleep studies and last data download from last visit October 2020. I will review, determine process after that TBD. Plan/recommendations below. Confirmed any study results can be sent by letter mailed. Total time spent via telehealth with patient including charting, history and referral review, sleepstudy order, counseling and recommendations: 75 minutes Recommendations: --Please register your device on the TapFunder web site, or by phoning them. She has not done so yet. --Do not buy or use a ozone generating PAP cleaning device with the DreamStation 1 machine. --Contact us if patient develops airway irritation symptoms, headaches or other symptoms that they feel may be related to BPAP use. --She will contact [facility] to fax us their sleep studies and most recent data download. Fax to: [phone] --Once I review, I will contact her [...] comfort or mask leak: for information, call [phone] or go to [email or web address] --If dry mouth: 1) adjust humidity up [...] safety reviewed --Follow-up: TBD Addendum 04/05/21: Called [facility] since I have received no sleep study copies yet from [facility] to see what they had--last studies are from us, also requested access to [place], shows a DreamStation autoBPAP machine, setup 01/11/2010 (initial date, not [...] 2:30 PM EST Office Visit Hematology/Oncology at [address] [address] Sony Lyons MD [facility] [place] [address] Dottie Lira APRN [address] [place] [address] DR HEMATOLOGY AND ONCOLOGY [place], [place] [address] 06/02/2025 2:00 PM EST Office Visit Dermatology at [place] [address] [place] [address] Sam Johns MD [address], [place] [address] documented as of this encounter Visit Diagnoses Diagnosis SUGEY treated with BiPAP- Primary Daytime sleepiness Nocturnal hypoxemia Hypoxemia documented in this encounter Care Teams Wood Turner Relationship Specialty Start Date End Date Wilma Nance MD [address] [place] [address] PCP - General Family Medicine 09/18/17 05/09/24 documented as of this encounter
--- OUTSIDE RECORDS SUMMARY | 2024-08-12 20:14 | XMS_ITS | Encounter Summary ---
Author Organization [facility] [place] [address] Care Team Providers Care Brazer Electronic Name Role Phone Wilma Nance MD Primary Care Provider [phone] Reason for Visit * - Closed Specialty Diagnoses / Procedures Referred By Contac t Referred To Contact Procedures Film Library- Storage Only MR Spine Wilma Nance MD [address] [place] [address] Referral ID Status Reason Start Date Expiration Date Visits Re quested Visits Authorized [id number] Closed 12/29/2020 12/29/2021 1 1 Encounter Details Date Type Department Care Team (Late st Contact Info) Description 12/29/2020 4:25 PM EDT Ancillary Procedure Radiology Library at [facility] [place] [address] Wilma Nance MD [address] [place], [place] [address] Social History Tobacco Use Types Packs/Day Years [...] PM EST Office Visit Hematology/Oncology at [address] [address] Sony Lyons MD [facility] [place] [address] Dottie Lira APRN [address] [place] [address] DR HEMATOLOGY AND ONCOLOGY [place], [place] [address] 06/02/2025 2:00 PM EST Office Visit Dermatology at [place] [address] [place] [address] Sam Johns MD [address], [place] [address] documented as of this encounter Procedures Procedure Name Priority Date/Time Associated Diagnosis Comments FILM LIBRARY STORAGE ONLY MR SPINE Routine 12/29/2020 4:20 PM EDT documented in this encounter Results * Film Library- Storage Only MR Spine (12/29/2020 4:20 PM EDT) Narrative [facility] - 12/29/2020 4:20 PM EDT This exam is auto-finalizing. It's purpose is for storage only. Wilma Nance MD IMG FILM LIBRARY ORD ERABLES [place], [place] documented in this encounter Visit Diagnoses Not on filedocumented in this encounter Care Teams Brazer Electronic Relationship Specialty Start Date End Date Wilma Nance MD [address] [place] [address] PCP - General Family Medicine 09/18/17 05/09/24 documented as of this encounter
--- OUTSIDE RECORDS SUMMARY | 2024-08-12 20:14 | XMS_ITS | Encounter Summary ---
[place] [address] Care Team Providers Care Drill Sergeant Name Role Phone Wilma Nance MD Primary Care Provider [phone] Encounter Details Date Type Department Care Team (Late Contact Info) Description 06/23/2018 Interpretation Only [facility] [address] [place] [phone] Risa Samano [address] [place] [address] Social History Tobacco Use Types Packs/Day Years [...] 2:30 PM EST Office Visit Hematology/Oncology at [address] [address] Sony Lyons MD [facility] [place] [address] Dottie Lira APRN [address] [place] [address] DR [place] [address] 06/02/2025 2:00 PM EST Office Visit Dermatology at [place] [address] [place] [address] Sam Johns MD [address], [place] [address] documented as of this encounter Procedures Procedure [...] with pedicle screws and fusion rods from X3gjadcra S1. A prosthetic intervertebral disc is also [...] on filedocumented in this encounter Care Teams Drill Sergeant Relationship Specialty Start Date End Date Wilma Nacne MD [address] [place] [address] PCP - General Family Medicine 09/18/17 05/09/24 documented as of this encounter
--- OUTSIDE RECORDS SUMMARY | 2024-08-12 20:14 | XMS_ITS | Encounter Summary ---
Author Organization [facility] Address [facility] [place] [address] Care Team Providers Care Chief Business Development Officer Name Role Phone Wilma Nance MD Primary Care Provider Encounter Details Date Type Department Care Team (Late Contact Info) Description 05/28/2022 External [place] [phone] Provider, Scanning Social History Tobacco Use Types [...] 2:30 PM EST Office Visit Hematology/Oncology at [address] [phone] Sony Lyons MD [facility] [place] [address] Dottie Lira APRN [address] [place] [address] DR HEMATOLOGY AND ONCOLOGY [place], [place] [address] 06/02/2025 2:00 PM EST Office Visit Dermatology at [address] [place] [address] Sam Johns MD [address], [place] [address] documented as of this encounter Procedures Procedure Name Priority Date/Time Associated Diagnosis Comments SURGICAL PATHOLOGY SCAN Routine 05/28/2022 documented in this encounter Results * Scan Doc: Surgical Pathology (05/28/2022) Sony Lyons MD MEDIA MGR SCAN EXT O RDR/RSLT documented in this encounter Visit Diagnoses Not on filedocumented in this encounter Care Teams Chief Business Development Officer Relationship Specialty Start Date End Date Wilma Nance MD [address] [place] [address] PCP - General Family Medicine 09/18/17 05/09/24 documented as of this encounter
--- OUTSIDE RECORDS SUMMARY | 2024-08-12 20:14 | XMS_ITS | Encounter Summary ---
Author Organization [facility] Address [facility] [place] [address] Care Team Providers Care Bridge Game Director Name Role Phone Wilma Nance MD Primary Care Provider [phone] Encounter Details Date Type Department Care Team [...] 2:30 PM EST Office Visit Hematology/Oncology at [address] [phone] Sony Lyons MD [facility] [place] [place] [address] Dottie Lira APRN [address] [place] [address] DR HEMATOLOGY AND ONCOLOGY [place], [place] [address] 06/02/2025 2:00 PM EST Office Visit Dermatology at [address] [place] [address] Sam Johns MD [address], [place] [address] documented as of this encounter Visit Diagnoses Not on filedocumented in this encounter Care Teams Bridge Game Director Relationship Specialty Start Date End Date Wilma Nance MD [address] [place] [address] PCP - General Family Medicine 09/18/17 05/09/24 documented as of this encounter
--- OUTSIDE RECORDS SUMMARY | 2024-08-12 20:14 | XMS_ITS | Encounter Summary ---
Author Organization [facility] Address [facility] [place] [address] Care Team Providers Care Information Engineer Name Role Phone Wilma Nance MD Primary Care Provider [phone] Encounter Details Date Type Department Care Team (Late Contact Info) Description 03/11/2023 Refill Dermatology at [address] [address] Kelsey Jackman, RN Social History [...] PM EST Office Visit Hematology/Oncology at [address] [address] Sony Lyons MD [facility] [place] [address] Dottie Lira APRN [address] [place] [address] DR HEMATOLOGY AND ONCOLOGY [place], [place] [address] 06/02/2025 2:00 PM EST Office Visit Dermatology at [place] [address] [place] [address] Sam Johns MD [address], [place] [address] documented as of this encounter Visit Diagnoses Not on filedocumented in this encounter Care Teams Information Engineer Relationship Specialty Start Date End Date Wilma Nance MD [address] [place] [address] PCP - General Family Medicine 09/18/17 05/09/24 documented as of this encounter
--- OUTSIDE RECORDS SUMMARY | 2024-08-12 20:14 | XMS_ITS | Encounter Summary ---
Author Organization [facility] [place] [address] Care Team Providers Care Early Intervention School Psychologist Name Role Phone Wilma Nance MD Primary Care Provider [phone] Encounter Details Date Type Department Care Team (Late Contact Info) Description 01/08/2023 Telephone Hematology [place] [phone] [facility] [address] Social History Tobacco Use Types Packs/Day Years [...] PM EST Office Visit Hematology/Oncology at [address] [address] Sony Lyons MD [facility] [place] [address] Dottie Lira APRN [address] [place] [address] DR [place] [address] 06/02/2025 2:00 PM EST Office Visit Dermatology at [place] [address] [place] [address] Sam Johns MD [address], [place] [address] documented as of this encounter Visit Diagnoses Not on filedocumented in this encounter Care Teams Early Intervention School Psychologist Relationship Specialty Start Date End Date Wilma Nance MD [address] [place] [address] PCP - General Family Medicine 09/18/17 05/09/24 documented as of this encounter
--- OUTSIDE RECORDS SUMMARY | 2024-08-12 20:14 | XMS_ITS | Encounter Summary ---
Author Organization [facility] [place] [address] Care Team Providers Care Furniture Sales Consultant Name Role Phone Wilma Nance MD Primary Care Provider [phone] Encounter Details Date Type Department Care Team (Late st Contact Info) Description 04/13/2021 Telephone Sleep Center at [facility] [address] [place] [phone] Serenity Nair, SAM Social History Tobacco Use Types Packs/Day Years [...] regarding next steps: 1) Reconsider staying with [facility] for care and Yessy until she gets a replacement or repaired BPAP device--check with [facility] on status--as she has already been qualified for current BPAP and oxygen or ask [facility] for a change of DME order for BPAP supplies, replacement, oxygen, or 2) Continue re-establishment of care with [facility], and either stay with [facility] (recommended) or decide on new DME: Call or [facility] to ask if repeated sleep studies and oxygen requalification would be needed with DME change for BPAP supplies/service. There appears to be no break in BPAP usage. I couldsend DME and BPAP supplies order, at minimum. If new DME, they would need copies of previous sleep studies. Asked her to call for further questions, decision on DME, and [facility] or [facility] care f/u. SERENITY NAIR APRN documented in this encounter Plan of Treatment Upcoming Encounters Date Type Department Care Team (Late st Contact Info) Description 09/16/2024 2:30 PM EST Office Visit Hematology/Oncology at [address] [phone] Sony Lyons MD [facility] [place] [place] [address] Dottie Lira APRN [address] [place] [address] [place] [address] 06/02/2025 2:00 PM EST Office Visit Dermatology at [place] [address] [place] [address] Sam Johns MD [address] [facility] [facility] [place] [address] documented as of this encounter Visit Diagnoses Not on filedocumented in this encounter Care Teams Furniture Sales Consultant Relationship Specialty Start Date End Date Wilma Nance MD [address] [place] [address] PCP - General Family Medicine 09/18/17 05/09/24 documented as of this encounter
--- OUTSIDE RECORDS SUMMARY | 2024-08-12 20:14 | XMS_ITS | Encounter Summary ---
[place] [address] Care Team Providers Care Supervisor Putty And Caluking Name Role Phone Wilma Nance MD Primary Care Provider [phone] Reason for Visit * Reason Comments Genetic Evaluation * Consultation (Routine) - Closed Specialty Diagnoses / Procedures Referred By Renan villavicencio Referred To Contact Hematology and Oncology Diagnoses Malignant neoplasm of sigmoid colon Sony Lyons MD [facility] [place] [address] [facility] Hem Onc [address] [place] [address] Referral ID Status Reason Start Date Expiration Date V isits Requested Visits Authorized [id number] Closed Consult, Test & Treat 07/26/2022 07/26/2023 1 1 Encounter Details Date Type Department Care Team (Late st Contact Info) Description 12/16/2022 11:30 AM EDT TH Visit (TeleHealth) [place] [address] [facility] Hematology/[place] [address] Malignant neoplasm of sigmoid colon [...] in her 30s Maternal ethnic background is [place], Welsh, Renetta. There is the possibility of Ashkenazi Shinto ancestry per patient. Paternal ethnic background is Chinese. Genetic risk assessment Based on personal and/or [...] not appear to have been performed by [facility]. Panel genetic testing for an [...] as well. She opted for testing with [employer]' CancerNext-Expanded Panel, a next generation sequencing panel that simultaneously analyzes 77 genes, including Casey syndrome (MLH1, MSH2, MSH6, PMS2, and EPCAM) that contribute to increased risk for cancer. Shiloh was verbally consented and will be sent consent forms via [employer] to review, sign, and return. Orders for the saliva kit will be placed after signed consents are received. [facility] will send a saliva collection kit with prepaid return envelope directly to Shiloh's home to obtain a sample. Instructions for sample collection and return are provided within the kit. We reviewed [employer]'s billing policy. Shiloh will be notified by text and/or email once Ko[employer] completes their benefits investigation if her estimated out of pocket cost is over $100. At that time, if Shiloh is concerned about the estimated test cost she will have the option to contact [facility] directly and either apply for [facility]'s patient assistance program to try and reduce cost of testing based onincome information, cancel testing, or switch to a self-pay option of $250. If Shiloh does not respond to [employer], testing will be billed to her insurance [...] 2:30 PM EST Office Visit Hematology/Oncology at [address] [address] Sony Lyons MD [facility] [place] [address] Dottie Lira APRN [address] [place] [address] DR [place]EMAT[place]Y [place] [address] 06/02/2025 2:00 PM EST Office Visit Dermatology at [place] [address] [place] [address] Sam Johns MD [address] [facility], [place] [address] Scheduled Referrals Name Type Priority Associated Diagnoses Orde r Schedule Referral to Familial Cancer Outpatient Referral Routine Malignant neoplasm of sigmoid colon Ordered: 07/26/2022 documented as of this encounter Visit Diagnoses Diagnosis Malignant neoplasm of sigmoid colon documented in this encounter Care Teams Supervisor Putty And Caluking Relationship Specialty Start Date End Date Wilma Nance MD [address] [place] [address] PCP - General Family Medicine 09/18/17 05/09/24 documented as of this encounter
--- OUTSIDE RECORDS SUMMARY | 2024-08-12 20:14 | XMS_ITS | Encounter Summary ---
Author Organization [facility] [place] [address] Care Team Providers Care Outside Event Sales Specialist Name Role Phone Wilma Nanec MD Primary Care Provider [phone] Encounter Details Date Type Department Care Team (Late st Contact Info) Description 05/09/2022 Telephone Cardiology at [address] [address] Kam Kirk MD [facility] [place] [address] Social History Tobacco Use Types Packs/Day Years [...] from the original note were not included. [facility] [place] [address] 05/09/2022 Shiloh Anderson Initial Contact Date: 05/09/2022 Initial contact time: 7:32 PM Referring Provider: Dr. 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 Brief HPI: [...] 2:30 PM EST Office Visit Hematology/Oncology at [address] [phone] Sony Lyons MD [facility] [place] [place] [address] Dottie Lira [employer] [address] [place] [address] DR HEMATOLOGY AND ONCOLOGY [place], [place] [address] 06/02/2025 2:00 PM EST Office Visit Dermatology at [address] [place] [address] Sam Johns MD [address], [place] [address] documented as of this encounter Visit Diagnoses Not on filedocumented in this encounter Care Teams Outside Event Sales Specialist Relationship Specialty Start Date End Date Wilma Nance MD [address] [place] [address] PCP - General Family Medicine 09/18/17 05/09/24 documented as of this encounter
--- OUTSIDE RECORDS SUMMARY | 2024-08-12 20:14 | XMS_ITS | Encounter Summary ---
Author Organization [facility] [place] [address] Care Team Providers Care Mc Kay Stitcher Name Role Phone Wilma Nance MD Primary Care Provider [phone] Reason for Visit * Auth/Cert Specialty Diagnoses / Procedures Referred By Contshaneka t Referred To Contact Diagnoses Right Carpal Tunnel Syndrome Procedures PRO REVISE MEDIAN N/CARPAL TUNNEL SURG MEDIAN NERVE DECOMPRESSION (CARPAL TUNNEL RELEASE) (WRVU 4.97) Referral ID Status Reason Start Date Expiration Date Visits Re quested Visits Authorized [id number] 1 1 Encounter Details Date Type Department Care Team (Late st Contact Info) Description 06/20/2020 7:25 AM EST Anesthesia [place] [address] [place] [address] Anesthesia Record Procedure Summary Procedure Name Responsible [...] 0654; median cubital vein (antecubital fossa), left; zuxk-rln-ipjxpt catheter system; 22 gauge; distraction; 1; median [...] Procedure Summary Date: 06/20/20 Room / Location: [facility] OR MAIN OR Anesthesia Start: 724 Anesthesia Stop: 758 Procedure: MEDIAN NERVE DECOMPRESSION (CARPAL TUNNEL RELEASE) (WRVU 4.97) (Right Hand) Diagnosis: (Right Carpal Tunnel Syndrome) Surgeon: Marion Abdalla MD Responsible Provider: Jayla Sylvester CRNA Anesthesia Type: general ASA Status: 3 All Anesthesia Providers: ZACH Independent: Jayla Sylvester CRNA Vitals Value Taken Time BP 104/58 06/20/20 0818 Temp Pulse Resp 18 06/20/20 0818 SpO2 94 % 06/20/20 0818 Pain Level 0 06/20/20 0818 Patient Location: [facility] Level of Consciousness: Awake and Alert [...] Incontinence urge ??? Irregular heart beat ??? skilled nursing current use of opiate analgesic ??? Mental [...] (LUMPECTOMY) performed by Yuval Rodas MD at [facility] ??? PRO REVISE MEDIAN N/CARPAL TUNNEL SURG Left 05/29/2020 MEDIAN NERVE DECOMPRESSION (CARPAL TUNNEL RELEASE) (WRVU 4.97) performed by Marion Abdalla MD at [facility] MAIN OR ??? REVISION TOTAL KNEE ARTHROPLASTY [...] 2:30 PM EST Office Visit Hematology/Oncology at [address] [address] Sony Lyons MD [facility] [place] [address] Dottie Lira APRN [address] [place] [address] DR HEMATOLOGY AND ONCOLOGY [place], [place] [address] 06/02/2025 2:00 PM EST Office Visit Dermatology at [address] [place] [phone] Sam Johns MD [address], [place] [address] documented as of this encounter Visit Diagnoses [...] mg documented in this encounter Care Teams Mc Kay Stitcher Relationship Specialty Start Date End Date Wilma Nance MD [address] [place] [address] PCP - General Family Medicine 09/18/17 05/09/24 documented as of this encounter
--- OUTSIDE RECORDS SUMMARY | 2024-08-12 20:14 | XMS_ITS | Encounter Summary ---
Author Organization [facility] Address [facility] [place] [address] Care Team Providers Care Film Booker Name Role Phone Wilma Nance MD Primary Care Provider [phone] Encounter Details Date Type Department Care Team (Late Contact Info) Description 05/18/2018 Interpretation Only [address] [place] [phone] Marion Abdalla MD Social History Tobacco Use [...] PM EST Office Visit Hematology/Oncology at [address] [phone] Sony Lyons MD [facility] [place] [address] Dottie Lira APRN [address] [place] [address] DR HEMATOLOGY AND ONCOLOGY [place], [place] [address] 06/02/2025 2:00 PM EST Office Visit Dermatology at [place] [address] [place] [address] Sam Johns MD [address], [place] [address] documented as of this encounter Procedures Procedure [...] lumbosacral decompression and fusion Procedure Note Fide Ely MD - 05/20/2018 EXAMINATION: O-ARM ( =>1HR [...] on filedocumented in this encounter Care Teams Film Booker Relationship Specialty Start Date End Date Wilma Nance MD [address] [place] [address] PCP - General Family Medicine 09/18/17 05/09/24 documented as of this encounter
--- OUTSIDE RECORDS SUMMARY | 2024-08-12 20:14 | XMS_ITS | Encounter Summary ---
Author Organization [facility] [place] [address] Care Team Providers Care Associate Store Leader Name Role Phone Wilma Nance MD Primary Care Provider [phone] Reason for Visit * Auth/Cert Specialty Diagnoses / Procedures Referred By Contshaneka t Referred To Contact Diagnoses Right Carpal Tunnel Syndrome Procedures PRO REVISE MEDIAN N/CARPAL TUNNEL SURG MEDIAN NERVE DECOMPRESSION (CARPAL TUNNEL RELEASE) (WRVU 4.97) Referral ID Status Reason Start Date Expiration Date Visits Re quested Visits Authorized [id number] 1 1 Encounter Details Date Type Department Care Team (Late st Contact Info) Description 06/20/2020 7:30 AM EST - 06/20/2020 8:17 AM EST Surgery Operating Room [facility] [place] [address] Marion Abdalla MD [place] [address] MEDIAN NERVE DECOMPRESSION (CARPAL TUNNEL RELEASE) (WRVU [...] another scheduled follow-up appointment awith a Physician???s Supervisor [employer] 4-6 weeksfrom the date of surgery. ??? [...] to stop taking it. ??? Only take jzhv-uip-nueiheq or prescription medicine for pain, discomfort or [...] weakness or numbness. SMOKING CESSATION INFORMATION: ??? [place] QUITLINE: ??? [place] QUITLINE: ??? [email or web address] If you smoke, stop now! Smoking may impede healing. MAKE SURE YOU: ??? Understand these instructions. ??? Will seek medical care if you are feeling poor, or get worse. ??? Will call the office with any questions or concerns at: [phone]. The above information has been presented or [...] tablet by mouth daily. Narcan 4 mg/actuation [place], Non-Aerosol ADMINISTER 1 SYRINGE FULL IN NOSTRIL [...] 1 06/24/2017 fluticasone propionate (FLONASE) 50 mcg/actuation [place], Suspension 2 sprays by Each Nare route [...] Abdalla MD - 06/20/2020 8:00 AM EST [facility] [place] [address] Patient Name: Shiloh Anderson : [id number] MR#: [id number] Case Date: 06/20/2020 Surgeon: Surgeon(s) and Role: * Marion Abdalla MD - Primary * Fede Dunn PA - Physician Supervisor [employer] Preoperative diagnosis: Right Carpal Tunnel Syndrome Postoperative [...] nerve until full decompression was obtained. A [place] was used distally and proximally to confirm [...] the duration of the operative session. The home care assistant adequately prepped the operative site and maintained the best possible exposure of anatomy incident to the procedure. Marion Abdalla MD 06/20/2020 documented in this encounter Plan of Treatment Upcoming Encounters Date Type Department Care Team (Late st Contact Info) Description 09/16/2024 2:30 PM EST Office Visit Hematology/Oncology at [address] [phone] Sony Lyons MD [facility] [place] [address] Dottie Lira APRN [address] [place] [address] DR [place] [address] 06/02/2025 2:00 PM EST Office Visit Dermatology at [place] [address] [place] [address] Sam Johns MD [address], [place] [address] documented as of this encounter Procedures Procedure Name Priority Date/Time Associated Diagnosis Comments Revise Median N/Carpal Tunnel Surg (36366) Yes 06/20/2020 7:26 AM EST Right Carpal [...] Routine 0659 (Given - Provid er: Shanti Morrissey, BRIGETTE) ceFAZolin (Ancef) 2 g in dextrose 5% [...] MD) documented in this encounter Care Teams Associate Store Leader Relationship Specialty Start Date End Date Wilma Nance MD [address] [place] [address] PCP - General Family Medicine 09/18/17 05/09/24 documented as of this encounter
--- OUTSIDE RECORDS SUMMARY | 2024-08-12 20:14 | XMS_ITS | Encounter Summary ---
[place] [address] Care Team Providers Care Concrete Stone Fabricating Supervisor Name Role Phone Wilma Nance MD Primary Care Provider [phone] Encounter Details Date Type Department Care Team (Late st Contact Info) Description 10/19/2022 Telephone Hematology [place] [phone] Walter Wise MD Social History Tobacco Use Types Packs/Day [...] scheduled for next week. Walter Wise MD assembler flexible leads in Hematology-Oncology documented in this encounter Plan of Treatment Upcoming Encounters Date Type Department Care Team (Late st Contact Info) Description 09/16/2024 2:30 PM EST Office Visit Hematology/Oncology at [address] [address] Sony Lyons MD [facility] [place] [address] Dottie Lira APRN [address] [place] [address] DR HEMATOLOGY AND ONCOLOGY [place], [place] [address] 06/02/2025 2:00 PM EST Office Visit Dermatology at [address] [place] [address] Sam Johns MD [address] [place] [address], FUAD [place] [address] documented as of this encounter Visit Diagnoses Not on filedocumented in this encounter Care Teams Concrete Stone Fabricating Supervisor Relationship Specialty Start Date End Date Wilma Nance MD [address] [place] [address] PCP - General Family Medicine 09/18/17 05/09/24 documented as of this encounter
--- OUTSIDE RECORDS SUMMARY | 2024-08-12 20:14 | XMS_ITS | Encounter Summary ---
[place] [address] Care Team Providers Care Candy Depositing Machine Operator Name Role Phone Wilma Nance MD Primary Care Provider [phone] Reason for Visit * Reason Comments Follow-up Skin Check Encounter Details Date Type Department Care Team (Late st Contact Info) Description 11/27/2018 10:45 AM EDT Office Visit Dermatology at [address] [address] Sam Johns MD [address] [facility], [facility] [place] [address] History of basal cell carcinoma; AK (actinic [...] outdoor activities. She is training a new Lao Delgadillo, now 5-rqmqek-lnq, to be a guide dog. Physical examination [...] 2:30 PM EST Office Visit Hematology/Oncology at [address] [phone] Sony Lyons MD [facility] [place] [address] Dottie Lira APRN [address] [place] [address] DR HEMATOLOGY [place] [address] 06/02/2025 2:00 PM EST Office Visit Dermatology at [address] [place] [address] Sam Johns MD [address] [facility], [place] [address] documented as of this encounter Visit Diagnoses Diagnosis History of basal cell carcinoma Personal history of other malignant neoplasm of skin AK (actinic keratosis) Actinic keratosis documented in this encounter Care Teams Candy Depositing Machine Operator Relationship Specialty Start Date End Date Wilma Nance MD [address] [place] [address] PCP - General Family Medicine 09/18/17 05/09/24 documented as of this encounter
--- OUTSIDE RECORDS SUMMARY | 2024-08-12 20:14 | XMS_ITS | Encounter Summary ---
Author Organization [facility] [place] [address] Care Team Providers Care Horticultural Services Supervisor Name Role Phone Wilma Nance MD Primary Care Provider [phone] Encounter Details Date Type Department Care Team (Latest Contact Info) Description 05/28/2022 11:36 AM EDT - 05/28/2022 11:59 PM EDT Hospital [place] [address] Discharge Disposition: Home Social History Tobacco Use [...] tablet by mouth daily. Narcan 4 mg/actuation [place], Non-Aerosol ADMINISTER 1 SYRINGE FULL IN NOSTRIL NEEDED FOR EXCESSIVE SEDATION FROM CHRONIC OPIATE USE 01/06/2020 levothyroxine (SYNTHROID) 175 mcg Tablet Take 175 mcg by mouth daily. 0 08/04/2017 oxyCODONE-acetaminophen (PERCOCET) 10-325 mg Tablet Take 1 tablet by mouth every 4 hours as needed. 08/26/2016 Sodium Fluoride 5000 Plus 1.1 % Cream [...] vaginally two times a week 1 06/24/2017 amLODIPine (Norvasc) 5 mg Tablet Take 5 [...] PM EST Office Visit Hematology/Oncology at [address] [address] Sony Lyons MD [facility] [place] [address] Dottie Lira APRN [address] [place] [address] DR [place]Y [place] [address] 06/02/2025 2:00 PM EST Office Visit Dermatology at [place] [address] [place] [address] Sam Johns MD [address], [place] [address] documented as of this encounter Procedures Procedure Name Priority Date/Time Associated Diagnosis Comments SURGICAL PATHOLOGY REPORT Routine 05/28/2022 11:41 AM EDT documented in this encounter Results * Surgical Pathology Report (05/28/2022 11:41 AM EDT) Final Diagnosis [id number] ? Location: OPW The signing pathologist has (i) examined the relevant preparation(s) for the specimen(s) and (ii) rendered or confirmed the diagnosis(es). . ?Surgical Pathology DIAGNOSIS CONSULTATION CASE A - Outside slide(s) labeled [id number], collection date 05/08/2022. 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 B - Outside slide(s) labeled [id number], collection date 04/17/2022. Colon, 60 CMS, Mass, ?? biopsy: Invasive ??moderately differentiated adenocarcinoma. Per submitted outside pathologic report, immunostains (not submitted for review) showed loss of MLH1 and PMS2 and retained expression of MSH2 and MSH6 proteins in tumor cells. Electronically signed by: ?Christiane Yanes MD Verified: ??06/09/2022 14:16 ??Pathologist Performed at: ??-[facility] Dept. of Pathology, [place] [address] Analysis Consultant: Malorie Cole MD, FCAP, ??CLIA Certificate: [id number] SYNOPTIC A - Outside slide(s) labeled [id number], collection date 05/08/2022. Specimen ? Procedure: ??Transverse [...] was performed and read elsewhere and reviewed: ??[id number] part B Additional Findings ? Additional Findings: ??None identified . SYNOPTIC Best Tumor Blocks for Future Studies ? Tumor Block(s): ??A11, A13 ? Normal Block(s): ??A5, A6 ? CAP eCC 2021 Q1 Release ADDITIONAL STUDIES Whole slide scan: [id number] A-011 ([id number] A11-1) [id number] A-016 ([id number] A13-1) [id number] B-002 SPECIMEN(S) SUBMITTED CONSULTATION CASE A - 68 slide(s) labeled [id number], collection date 05/08/2022. B - 2 slide(s) labeled [id number], collection date 04/17/2022. [id number] CARBON COPY: [facility] Surgical Pathology Department [facility], [facility], 2nd Floor [address] [place], [place] ??[address] CLINICAL INFORMATION Colon cancer SPECIMEN PROCESSING [facility] ([facility]) pathology slide(s) are reviewed. ??Refer to Diagnosis and Specimen Submitted for specific case information. For the full text of the [facility] report(s) please refer to Non-DH Documentation Pathology in the electronic health record (eDH). 06/09/2022 2:16 PM [facility] Consult Case 05/28/2022 11:4 1 AM EDT 05/28/2022 11:41 AM EDT Consult Case 05/28/2022 11:4 1 AM EDT 05/28/2022 11:41 AM EDT Sony Lyons MD PATHOLOGY/[place] [address] documented in this encounter Visit Diagnoses Not on filedocumented in this encounter Care Teams Horticultural Services Supervisor Relationship Specialty Start Date End Date Wilma Nance MD [address] [place] [address] PCP - General Family Medicine 09/18/17 05/09/24 documented as of this encounter
--- OUTSIDE RECORDS SUMMARY | 2024-08-12 20:14 | XMS_ITS | Encounter Summary ---
Author Organization [facility] [address] Care Team Providers Care Dental Assistant Name Role Phone Wilma Nance MD Primary Care Provider [phone] Reason for Visit * Auth/Cert Specialty Diagnoses / Procedures Referred By Contac t Referred To Contact Diagnoses CARPAL TUNNEL SYNDROME Procedures PRO REVISE MEDIAN N/CARPAL TUNNEL SURG MEDIAN NERVE DECOMPRESSION (CARPAL TUNNEL RELEASE) (WRVU 4.97) Referral ID Status Reason Start Date Expiration Date Visits Re quested Visits Authorized [id number] 1 1 Encounter Details Date Type Department Care Team (Late st Contact Info) Description 05/29/2020 7:30 AM EST - 05/29/2020 8:27 AM EST Surgery Operating Room [facility] [place] [address] Marion Abdalla MD LIN [place] [address] MEDIAN NERVE DECOMPRESSION (CARPAL TUNNEL RELEASE) (WRVU [...] another scheduled follow-up appointment awith a Physician???s Motor Equipment Sergeant 4-6 weeksfrom the date of surgery. ??? [...] to stop taking it. ??? Only take hbhe-ajk-xnfmotw or prescription medicine for pain, discomfort or [...] SMOKING CESSATION INFORMATION: ??? [place] QUITLINE: ??? [place] QUITLINE: ??? www.[email or web address] If you smoke, stop now! Smoking may impede healing. MAKE SURE YOU: ??? Understand these instructions. ??? Will seek medical care if you are feeling poor, or get worse. ??? Will call the office with any questions or concerns at: [phone]. The above information has been presented or [...] tablet by mouth daily. Narcan 4 mg/actuation [place], Non-Aerosol ADMINISTER 1 SYRINGE FULL IN NOSTRIL [...] MD - 05/29/2020 7:55 AM EST [facility] [place] [address] Patient Name: Shiloh Anderson : [id number] MR#: [id number] Case Date: 05/29/2020 Surgeon: Surgeon(s) and Role: [...] nerve until full decompression was obtained. A [place] was used distally and proximally to confirm [...] 2:30 PM EST Office Visit Hematology/Oncology at [address] [phone] Sony Lyons MD [facility] [place] [address] Dottie Lira APRN [address] [place] [address] DR [place] [address] 06/02/2025 2:00 PM EST Office Visit Dermatology at [address] [place] [phone] Sam Johns MD [address] [facility], FUAD [place] [address] documented as of this encounter Procedures Procedure Name Priority Date/Time Associated Diagnosis Comments Revise Median N/Carpal Tunnel Surg (17967) 05/29/2020 7:25 AM EST CARPAL TUNNEL SYNDROME [...] MD) documented in this encounter Care Teams Dental Assistant Relationship Specialty Start Date End Date Wilma Nance MD [address] [place] [address] PCP - General Family Medicine 09/18/17 05/09/24 documented as of this encounter
--- OUTSIDE RECORDS SUMMARY | 2024-08-12 20:14 | XMS_ITS | Encounter Summary ---
Author Organization [facility] Address [facility] [place] [address] Care Team Providers Care Orthopedics Pediatric Physician Name Role Phone Wilma Nance MD Primary Care Provider [phone] Encounter Details Date Type Department Care Team (Late Contact Info) Description 05/26/2020 External Results Pre-Admission Testing at [facility] [address] [place] [phone] Social History Tobacco Use Types Packs/Day Years [...] 2:30 PM EST Office Visit Hematology/Oncology at [address] [phone] Sony Lyons MD [facility] [place] [address] Dottie Lira APRN [address] [place] [address] DR [place]Y [place] [address] 06/02/2025 2:00 PM EST Office Visit Dermatology at [place] [address] [place] [address] Sam Johns MD [address], [place] [address] documented as of this encounter Procedures Procedure [...] on filedocumented in this encounter Care Teams Orthopedics Pediatric Physician Relationship Specialty Start Date End Date Wilma Nance MD [address] [place] [address] PCP - General Family Medicine 09/18/17 05/09/24 documented as of this encounter
--- OUTSIDE RECORDS SUMMARY | 2024-08-12 20:14 | XMS_ITS | Encounter Summary ---
Author Organization [facility], [facility]1983 Address [facility] [place] [address] Care Team Providers Care Peanut Roaster Name Role Phone Wilma Nance MD Primary Care Provider [phone] Encounter Details Date Type Department Care Team [...] 2:30 PM EST Office Visit Hematology/Oncology at [address] [phone] Sony Lyons MD [facility] [place] [address] Dottie Lira APRN [address] [place] [address] DR HEMATOLOGY AND ONCOLOGY [place], [place] [address] 06/02/2025 2:00 PM EST Office Visit Dermatology at [address] [place] [address] Sam Johns MD [address], FUAD A DERMATOLOGY [place], [place] [address] documented as of this encounter Visit Diagnoses Not on filedocumented in this encounter Care Teams Peanut Roaster Relationship Specialty Start Date End Date Wilma Nance MD [address] [place] [address] PCP - General Family Medicine 09/18/17 05/09/24 documented as of this encounter
--- OUTSIDE RECORDS SUMMARY | 2024-08-12 20:14 | XMS_ITS | Encounter Summary ---
Author Organization [facility] Address [facility] [place] [address] Care Team Providers Care Rim Buster Name Role Phone Wilma Nance MD Primary Care Provider Encounter Details Date Type Department Care Team (Late Contact Info) Description 04/12/2021 Telephone Sleep Center at [facility] [address] [place] [phone] Marcelle Brian Social History Tobacco Use Types [...] PM EST Office Visit Hematology/Oncology at [address] [phone] Sony Lyons MD [facility] [place] [address] Dottie Lira APRN [address] [place] [address] DR HEMATOLOGY AND ONCOLOGY [place], [place] [address] 06/02/2025 2:00 PM EST Office Visit Dermatology at [place] [address] [place] [address] Sam Johns MD [address], [place] [address] documented as of this encounter Visit Diagnoses Not on filedocumented in this encounter Care Teams Rim Buster Relationship Specialty Start Date End Date Wilma Nance MD [address] [place] [address] PCP - General Family Medicine 09/18/17 05/09/24 documented as of this encounter
--- OUTSIDE RECORDS SUMMARY | 2024-08-12 20:14 | XMS_ITS | Encounter Summary ---
Author Organization [facility] Address [facility] [place] [address] Care Team Providers Care Partner Integration Planner Name Role Phone Wilma Nance MD Primary Care Provider [phone] Encounter Details Date Type Department Care Team (Late Contact Info) Description 05/18/2018 Interpretation Only [address] [place] [phone] Marion Abdalla MD Social History Tobacco Use [...] 2:30 PM EST Office Visit Hematology/Oncology at [address] [phone] Sony Lyons MD [facility] [place] [address] Dottie Lira APRN [address] [place] [address] DR HEMATOLOGY AND ONCOLOGY [place], [place] [address] 06/02/2025 2:00 PM EST Office Visit Dermatology at [place] [address] [place] [address] Sam Johns MD [address], [place] [address] documented as of this encounter Procedures Procedure [...] on filedocumented in this encounter Care Teams Partner Integration Planner Relationship Specialty Start Date End Date Wilma Nance MD [address] [place] [address] PCP - General Family Medicine 09/18/17 05/09/24 documented as of this encounter
--- OUTSIDE RECORDS SUMMARY | 2024-08-12 20:14 | XMS_ITS | Encounter Summary ---
Author Organization [facility] [place] [address] Care Team Providers Care Financial Services Consultant Name Role Phone Wilma Nance MD Primary Care Provider [phone] Encounter Details Date Type Department Care Team (Late Contact Info) Description 03/07/2023 Ancillary Procedure Radiology Library at [facility] [place] [phone] Wilma Nance MD [address] [place] [address] [phone] Social History Tobacco Use Types Packs/Day Years [...] 2:30 PM EST Office Visit Hematology/Oncology at [address] [address] Sony Lyons MD [facility] [place] [address] Dottie Lira APRN [address] [place] [address] [place] [address] 06/02/2025 2:00 PM EST Office Visit Dermatology at [place] [address] [place] [address] Sam Johns MD [address], [place] [address] documented as of this encounter Procedures Procedure Name Priority Date/Time Associated Diagnosis Comments FILM LIBRARY STORAGE ONLY CT ABDOMEN AND PELVIS Routine 03/07/2023 12:00 AM EDT documented in this encounter Results * Film Library- Storage Only CT Abdomen & Pelvis (03/07/2023 12:00 AM EDT) Narrative [facility] - 05/01/2023 1:19 PM EDT This exam is auto-finalizing. It's purpose is for storage only. Wilma Nance MD IMG FILM LIBRARY ORD ERABLES [place], [place] documented in this encounter Visit Diagnoses Not on filedocumented in this encounter Care Teams Financial Services Consultant Relationship Specialty Start Date End Date Wilma Nance MD [address] [place] [address] PCP - General Family Medicine 09/18/17 05/09/24 documented as of this encounter
--- OUTSIDE RECORDS SUMMARY | 2024-08-12 20:15 | XMS_ITS | Encounter Summary ---
[place] [address] Care Team Providers Care Eyeglass Lens Grinder Name Role Phone Mikaela Cristy Awad APRN Primary Care Provider [phone] Encounter Details Date Type Department Care Team (Late st Contact Info) Description 09/28/2012 7:30 AM EST - 09/28/2012 8:45 AM EST Surgery [place] [phone] Nain Rodas MD EXCISION CYST, FIBROADENOMA, ABBERANT BREAST TISSUE,DUCT LESION,NIPPLE [...] Rodas MD - 09/28/2012 8:02 AM EST [facility] Patient Name: Eli Anderson : [id number] MR#: [id number] Case Date: 09/28/2012 Surgeon: Surgeon(s) and Role: [...] Operative Note Patient Name: Eli Anderson : [id number] MR#: [id number] Case Date: 09/28/2012 Surgeon: Surgeon(s) and Role: [...] PM EST Office Visit Hematology/Oncology at [address] [phone] Sony Lyons MD [facility] [place] [address] Dottie iLra APRN [address] [place] [address] DR HEMATOLOGY AND ONCOLOGY [place], [place] [address] 06/02/2025 2:00 PM EST Office Visit Dermatology at [place] [address] [place] [address] Sam Johns MD [address], [place] [address] documented as of this encounter Procedures Procedure [...] 1:45 PM EST) Surgical Pathology Report ? [facility] ? Provider: ?? NAIN RODAS Pt. Name: ?? ELI ANDERSON Marty ? Acc #: ?[id number] ?Pt. ? Col Date: ?? 09/28/2012 ?/Sex: [...] glistening, lenz-yellow fibroadipose tissues. ? Sections/Process ing: ??Judge sections are submitted. ??The margin is ? marked with black ink. ?(R5) ??aje/PPS ? ---Clinical Information--- ? Specimen Submitted: ? A - Left breast mass ? Clinical History/Diagnosi s: ? Left breast mass ROBB GIRALDO 09/28/2012 1:45 PM EST Nain Rodas MD PATHOLOGY/CYTOLOGY ORDERABLES Performing Organization Address [facility]/State/[facility] Co de Phone Number ROBB GIRALDO * Specimen to Pathology (surgical or derm) (09/28/2012 7:51 AM EST) AP Specimen 09/28/2012 7:51 AM EST 09/28/2012 7:52 AM EST Narrative BRANDYARMANI GIRALDO - 09/28/2012 7:52 AM EST Specimen requisition ordered. ??Separate Pathology report to follow Nain Rodas MD PATHOLOGY/CYTOLOGY ORDERABLES Performing Organization Address [facility] Co de Phone Number ROBB GIRALDO documented [...] PRN, Starting on Fri09/28/12 at 0750, Until 3/4/13 at 1339, Intra-Operative (Intra-Procedure), Routine Given 09/28/2012 [...] Kika Son RN - Comment: ekaterina for DENTAL OFFICE MANAGER to start) Continuous Medication Order 09/26/2012 09/27/2012 [...] MD) documented in this encounter Care Teams Eyeglass Lens Grinder Relationship Specialty Start Date End Date Cristy Al APRN PCP - General 06/19/10 09/17/17 documented as of this encounter
--- OUTSIDE RECORDS SUMMARY | 2024-08-12 20:15 | XMS_ITS | Encounter Summary ---
[place] [address] Care Team Providers Care Gun Synchronizer Name Role Phone Chugach, Cristy Awad APRN Primary Care Provider [phone] Reason for Visit * Reason Comments Annual Exam Encounter Details Date Type Department Care Team (Late st Contact Info) Description 08/29/2016 11:15 AM EST Office Visit Dermatology at [address] [address] Sam Johns MD [address] [facility], [place] [address] History of basal cell carcinoma Social History [...] PM EST Office Visit Hematology/Oncology at [address] [address] Sony Lyons MD [facility] [address] Dottie Lira APRN [address] [place] [address] DR HEMATOLOGY [place] [address] 06/02/2025 2:00 PM EST Office Visit Dermatology at [address] [address] Sam Johns MD [address] [place] [address], [email or web address] [place] [address] documented as of this encounter Visit Diagnoses Diagnosis History of basal cell carcinoma Personal history of other malignant neoplasm of skin documented in this encounter Care Teams Gun Synchronizer Relationship Specialty Start Date End Date Cristy Al APRN PCP - General 06/19/10 09/17/17 documented as of this encounter
--- OUTSIDE RECORDS SUMMARY | 2024-08-12 20:15 | XMS_ITS | Encounter Summary ---
[place] [address] Care Team Providers Care Director Of Cath Lab Name Role Phone Davison, Cristy Awad APRN Primary Care Provider Encounter Details Date Type Department Care Team (Latest Contact Info) Description 09/28/2012 6:19 AM EST - 09/28/2012 8:40 AM EST Hospital Encounter [place]patient [place] [phone] Nain Rodas MD Discharge Disposition: Home Social History Tobacco Use [...] Rodas MD - 09/28/2012 8:02 AM EST [facility] Operative Note Patient Name: Eli Anderson : [id number] MR#: [id number] Case Date: 09/28/2012 Surgeon: Surgeon(s) and Role: [...] procedure well. * Brief Op Note - Nian Rodas MD - 09/28/2012 8:01 AM EST Brief Operative Note Patient Name: Eli Anderson : [id number] MR#: [id number] Case Date: 09/28/2012 Surgeon: Surgeon(s) and Role: [...] 2:30 PM EST Office Visit Hematology/Oncology at [address] [phone] Sony Lyons MD [facility] [place] [address] Dottie Lira APRN [address] [place] [address] DR HEMATOLOGY [place] [address] 06/02/2025 2:00 PM EST Office Visit Dermatology at [place] [address] [place] [address] Sam Johns MD [address], [place] [address] documented as of this encounter Procedures Procedure [...] 1:45 PM EST) Surgical Pathology Report ? [facility] ? Provider: ?? NAIN RODAS Pt. Name: ?? ELI ANDERSON ? Acc #: ?[id number] ?Pt. ? Col Date: ?? 09/28/2012 ?/Sex: ?1945,(67 ? years),Female ? Rec Date: ?? 09/28/2012 ?LOC: ?[facility] ? SURGICAL PATHOLOGY ? ---Pathologic Diagnosis--- ? Left breast mass ?Mature adipose tissue consistent with lipoma ? 09/29/12 ? VAM ? 09/29/12 Verified by: ? Deann LAGUNA, Delvin Chow ? Pathologist ? (Electronic Signature) ? The [...] glistening, lenz-yellow fibroadipose tissues. ? Sections/Process ing: ??Consulting Solution Director sections are submitted. ??The margin is ? marked with black ink. ?(R5) ??aje/PPS ? ---Clinical Information--- ? Specimen Submitted: ? A - Left breast mass ? Clinical History/Diagnosi s: ? Left breast mass ROBB GIRALDO 09/28/2012 1:45 PM EST Nain Rodas MD PATHOLOGY/CYTOLOGY ORDERABLES Performing Organization Address City/State/[facility] Co de Phone Number ROBB GIRALDO * Specimen to Pathology (surgical or derm) (09/28/2012 7:51 AM EST) AP Specimen 09/28/2012 7:51 AM EST 09/28/2012 7:52 AM EST Narrative BRANDYARMANI ROQUEYOUCARRIE - 09/28/2012 7:52 AM EST Specimen requisition ordered. ??Separate Pathology report to follow Nain Rodas MD PATHOLOGY/CYTOLOGY ORDERABLES Performing Organization Address City/[facility] Co de Phone Number ROBB GIRALDO documented [...] Kika Son RN - Comment: ekaterina for RESIN REMOVER to start) Continuous Medication Order 09/26/2012 09/27/2012 [...] MD) documented in this encounter Care Teams Director Of Cath Lab Relationship Specialty Start Date End Date Cristy Al APRN PCP - General 06/19/10 09/17/17 documented as of this encounter
--- OUTSIDE RECORDS SUMMARY | 2024-08-12 20:15 | XMS_ITS | Encounter Summary ---
[place] [address] Care Team Providers Care Flake Or Shred Roll Operator Name Role Phone Cristy Al APRN Primary Care Provider [phone] Reason for Visit * Reason On[place] Date Comments Other 04/13/2012 Patient cancelle d today's appointment and informed that all of her records have been sent to another sleep center and she will no longer be coming here. Encounter Details Date Type Department Care Team (Late Contact Info) Description 04/13/2012 Telephone [place] [address] Serenity Julien, [facility] Other (Patient cancelled today's appointment [...] PM EST Office Visit Hematology/Oncology at [address] [address] Sony Lyons MD [facility] [place] [address] Dottie Lira APRN [address] [place] [address] DR [place] [address] 06/02/2025 2:00 PM EST Office Visit Dermatology at [place] [address] [place] [address] aSm Johns MD [address], [place] [address] documented as of this encounter Visit Diagnoses Not on filedocumented in this encounter Care Teams Flake Or Shred Roll Operator Relationship Specialty Start Date End Date Cristy Al APRN PCP - General 06/19/10 09/17/17 documented as of this encounter
--- OUTSIDE RECORDS SUMMARY | 2024-08-12 20:15 | XMS_ITS | Encounter Summary ---
[place] [address] Care Team Providers Care Retail Merchandising Coordinator Name Role Phone Cristy Al APRN Primary Care Provider [phone] Reason for Visit * Reason Comments Breast Mass left Encounter Details Date Type Department Care Team (Late st Contact Info) Description 09/09/2012 10:15 AM EST Office Visit Hematology [place] [address] Yuval Rodas MD Mass of breast, left (Primary Dx) Discharge [...] 2:30 PM EST Office Visit Hematology/Oncology at [address] [address] Sony Lyons MD [facility] [place] [address] Dottie Lira APRN [address] [place] [address] DR [place] [address] 06/02/2025 2:00 PM EST Office Visit Dermatology at [place] [address] [place] [phone] Sam Johns MD [address], [place] [address] documented as of this encounter Visit Diagnoses Diagnosis Mass of breast, left- Primary Lump or mass in breast documented in this encounter Care Teams Retail Merchandising Coordinator Relationship Specialty Start Date End Date Cristy Al APRN PCP - General 06/19/10 09/17/17 documented as of this encounter
--- OUTSIDE RECORDS SUMMARY | 2024-08-12 20:15 | XMS_ITS | Encounter Summary ---
Author Organization [facility] Address [facility] [place] [address] Care Team Providers Care Manager Of Quality Name Role Phone Wilma Nance MD Primary Care Provider [phone] Encounter Details Date Type Department Care Team (Late st Contact Info) Description 06/11/2010 Interpretation Only Radiology [address] [place] [address] [place] [phone] Unknown None Social History Tobacco Use Types [...] PM EST Office Visit Hematology/Oncology at [address] [phone] Sony Lyons MD [facility] [place] [address] Dottie Lira APRN [address] [place] [address] DR HEMATOLOGY AND ONCOLOGY [place] [phone] 06/02/2025 2:00 PM EST Office Visit Dermatology at [address] [place] [address] Sam Johns MD [address] [facility], [place] [address] documented as of this encounter Procedures Procedure Name Priority Date/Time Associated Diagnosis Comments XR FLUORO NO RAD <1HR - RADIOLOGY USE Routine 06/11/2010 7:10 AM EST documented in this encounter Results * XR Fluoro <1Hr - Radiology Use (06/11/2010 7:10 AM EST) Anatomical Region Laterality Modality N/A Radiographic Mishel ging 06/11/2010 7:10 AM EST Narrative 06/11/2010 7:10 AM EST APD Historical Result Principal Packing Machine Operator: ??ANGELITO Riojas C-ARM FLUOROSCOPY: CLINICAL HISTORY: ??Intraoperative examination. FINDINGS: Fluoroscopy was provided for Dr Abdalla. ??There was no radiologist in attendance. ??Three spot films at the L5 level were obtained. Fluoroscopy time 13.7 seconds. Angelito Bonilla MD ROB/kori [id number] CC: Procedure Note Unknown - 01/25/2019 APD Historical Result Principal Packing Machine Operator: ANGELITO Miramontes C-ARM FLUOROSCOPY: CLINICAL HISTORY: Intraoperative examination. FINDINGS: Fluoroscopy was provided for Dr Abdalla. There was no radiologist inattendance. Three spot films at the L5 level were obtained. Fluoroscopy time 13.7 seconds. Angelito Bonilla MD ROB/kori [id number] CC: Unknown IMG FLUORO ORDERABLE S documented in this encounter Visit Diagnoses Not on filedocumented in this encounter Care Teams Manager Of Quality Relationship Specialty Start Date End Date Wilma Nance MD [address] [place] [address] PCP - General Family Medicine 09/18/17 05/09/24 documented as of this encounter
--- OUTSIDE RECORDS SUMMARY | 2024-08-12 20:15 | XMS_ITS | Encounter Summary ---
[place] [address] Care Team Providers Care Supervisor Matrix Name Role Phone Clinch, Cristy Awad APRN Primary Care Provider [phone] Encounter Details Date Type Department Care Team (Latest Contact Info) Description 08/13/2011 10:14 AM EST - 08/13/2011 11:59 PM [facility] Hospital Encounter [place] [address] CLINIC, DR WILIAN Nance, Wilma Mathews MD [address] [place], [place] [phone] Discharge Disposition: Home Social History Tobacco Use [...] PM EST Office Visit Hematology/Oncology at [address] [place] [phone] Sony Lyons MD [facility] [place] [address] Dottie Lira APRN [address] [place] [address] DR HEMATOLOGY AND ONCOLOGY [place], [place] [address] 06/02/2025 2:00 PM EST Office Visit Dermatology at [place] [address] [facility] [place] [address] Sam Johns MD [address] [facility] [facility] [address], [place] [address] documented as of this encounter Procedures Procedure [...] direct digital capture. The exam was evaluated byFusionAds Version 8.3.17. FINDINGS: This is a negative [...] filedocumented in this encounter Care Teams Supervisor Matrix Relationship Specialty Start Date End Date Cristy Al APRN PCP - General 06/19/10 09/17/17 documented as of this encounter
--- OUTSIDE RECORDS SUMMARY | 2024-08-12 20:15 | XMS_ITS | Encounter Summary ---
[place] [address] Care Team Providers Care Physical Science Aide Name Role Phone Mikaela Cristy Awad APRN Primary Care Provider [phone] Encounter Details Date Type Department Care Team (Late st Contact Info) Description 06/29/2010 9:15 AM EST Office Visit [place] [address] Social History Tobacco Use Types Packs/Day Years [...] 2:30 PM EST Office Visit Hematology/Oncology at [address] [phone] Sony Lyons MD [facility] [place] [address] Dottie Lira APRN [address] [place] [address] DR HEMATOLOGY AND ONCOLOGY [place], [place] [address] 06/02/2025 2:00 PM EST Office Visit Dermatology at [address] [place] [phone] Sam Johns MD [address] [facility], [place] [address] documented as of this encounter Visit Diagnoses Not on filedocumented in this encounter Care Teams Physical Science Aide Relationship Specialty Start Date End Date Cristy Al APRN PCP - General 06/19/10 09/17/17 documented as of this encounter
--- OUTSIDE RECORDS SUMMARY | 2024-08-12 20:15 | XMS_ITS | Encounter Summary ---
Author Organization [facility] Address [facility] [place] [address] Care Team Providers Care Plant Utility Person Name Role Phone Wilma Nance MD Primary Care Provider [phone] Encounter Details Date Type Department Care Team (Late st Contact Info) Description 10/18/2010 Interpretation Only Radiology [address] [place] [address] [place] [phone] Unknown None Social History Tobacco Use Types [...] 2:30 PM EST Office Visit Hematology/Oncology at [address] [phone] Sony Lyons MD [facility] [place] [address] Dottie Lira APRN [address] [place] [address] DR HEMATOLOGY AND ONCOLOGY [place], [place] [address] 06/02/2025 2:00 PM EST Office Visit Dermatology at [address] [place] [phone] Sam Johns MD [address] [facility], [place] [address] documented as of this encounter Procedures Procedure Name Priority Date/Time Associated Diagnosis Comments XR FLUORO NO RAD <1HR - RADIOLOGY USE Routine 10/18/2010 8:02 AM EDT documented in this encounter Results * XR Fluoro <1Hr - Radiology Use (10/18/2010 8:02 AM EDT) Anatomical Region Laterality Modality N/A Radiographic Mishel ging 10/18/2010 8:02 AM EDT Narrative 10/18/2010 8:02 AM EDT APD Historical Result Principal Carpenter Supervisor: ??CLAUDIO ??August FLUOROSCOPIC ASSISTANCE: A total of 9.1 seconds of fluoroscopic assistance was provided to Dr Abdalla during the performance of a surgical/special procedure. Four images record the event. ??No Radiologist was in attendance during service provision. Claudio Lai MD, FACR [facility]/ut [id number] CC: Procedure Note Unknown - 01/26/2019 APD Historical Result Principal Carpenter Supervisor: CLAUDIO Koch FLUOROSCOPIC ASSISTANCE: A total of 9.1 seconds of fluoroscopic assistance was provided to Reji during the performance of a surgical/special procedure. Four images record the event.No Radiologist was in attendance during service provision. Claudio Lai MD, FACR [facility]/ut [id number] CC: Unknown IMG FLUORO ORDERABLE S documented in this encounter Visit Diagnoses Not on filedocumented in this encounter Care Teams Plant Utility Person Relationship Specialty Start Date End Date Wilma Nance MD [address] [place] [address] PCP - General Family Medicine 09/18/17 05/09/24 documented as of this encounter
--- OUTSIDE RECORDS SUMMARY | 2024-08-12 20:15 | XMS_ITS | Encounter Summary ---
[place] [address] Care Team Providers Care Assistant City Attorney Name Role Phone Mikaela Cristy Awad APRN Primary Care Provider [phone] Encounter Details Date Type Department Care Team (Late st Contact Info) Description 07/06/2010 1:30 PM EST Procedure visit [place] [address] Social History Tobacco Use Types Packs/Day Years [...] PM EST Office Visit Hematology/Oncology at [address] [phone] Sony Lyons MD [facility] [place] [address] Dottie Lira APRN [address] [place] [address] DR HEMATOLOGY AND ONCOLOGY [place], [place] [address] 06/02/2025 2:00 PM EST Office Visit Dermatology at [address] [place] [phone] Sam Johns MD [address] [facility], [place] [address] documented as of this encounter Visit Diagnoses Not on filedocumented in this encounter Care Teams Assistant City Attorney Relationship Specialty Start Date End Date Cristy Al APRN PCP - General 06/19/10 09/17/17 documented as of this encounter
--- OUTSIDE RECORDS SUMMARY | 2024-08-12 20:15 | XMS_ITS | Encounter Summary ---
[place] [address] Care Team Providers Care Product Marketing Engineer Name Role Phone Cristy Al APRN Primary Care Provider [phone] Reason for Visit * Reason Comments Obstructive Sleep Apnea Encounter Details Date Type Department Care Team (Late st Contact Info) Description 11/19/2011 10:10 AM EDT Office [place] [address] Alma Myers APRN SUGEY on CPAP (Primary Dx) Social History [...] 11.4, avg leak varies bet. 53-70. Today's Effie Score is 8, indicating minimal daytime sleepiness [...] Reviewed driving safety; pt is encouraged to tree puller and nap if feeling unsafe behind the wheel at any time. 3. RTC 3 mos/PRN Subjective: Patient ID: Shiloh Anderson is a 66 y.o. female. HPI Review of Systems Objective: Physical Exam Assessment and Plan: No problem-specific visit notes found for this encounter. documented in this encounter Plan of Treatment Upcoming Encounters Date Type Department Care Team (Late st Contact Info) Description 09/16/2024 2:30 PM EST Office Visit Hematology/Oncology at [address] [address] Sony Lyons MD [facility] [place] [address] Dottie Lira APRN [address] [place] [address] [place] [address] 06/02/2025 2:00 PM EST Office Visit Dermatology at [place] [address] [facility] [place] [address] Sam Johns MD [address], [place] [address] documented as of this encounter Visit Diagnoses Diagnosis SUGEY on CPAP- Primary Obstructive sleep apnea (adult) (pediatric) documented in this encounter Care Teams Product Marketing Engineer Relationship Specialty Start Date End Date Cristy Al APRN PCP - General 06/19/10 09/17/17 documented as of this encounter
--- OUTSIDE RECORDS SUMMARY | 2024-08-12 20:15 | XMS_ITS | Encounter Summary ---
Author Organization [facility] [address] Care Team Providers Care Zinc Miner Blasting Name Role Phone [place]Cristy mccollum Delmi VARGAS Primary Care Provider [phone] Encounter Details Date Type Department Care Team (Late st Contact Info) Description 07/30/2010 10:40 AM EST Follow-[place] [address] Alma Myers APRN Social History Tobacco Use Types Packs/Day [...] PM EST Office Visit Hematology/Oncology at [address] [phone] Sony Lyons MD [facility] [place] [address] Dottie Lira APRN [address] [place] [address] DR HEMATOLOGY AND ONCOLOGY [place], [place] [id number] 06/02/2025 2:00 PM EST Office Visit Dermatology at [address] [phone] Sam Johns MD [address] [place] [address] RD, [place] [address] documented as of this encounter Visit Diagnoses Not on filedocumented in this encounter Care Teams Zinc Miner Blasting Relationship Specialty Start Date End Date Cristy Al APRN PCP - General 06/19/10 09/17/17 documented as of this encounter
--- OUTSIDE RECORDS SUMMARY | 2024-08-12 20:15 | XMS_ITS | Encounter Summary ---
[place] [address] Care Team Providers Care White Sugar Pan Tank Operator Name Role Phone Cristy Son APRN Primary Care Provider [phone] Reason for Visit * Reason Comments Breast Mass Encounter Details Date Type Department Care Team (Late st Contact Info) Description 07/15/2012 9:30 AM EST Office [place] [address] Fide Jerome APRN Mass (Primary Dx) Discharge Disposition: Home Social [...] nipple discharge. Imaging performed ( bilateral [place]ogram[place] [facility] [place] was interpreted as Category 1 [...] PM EST Office Visit Hematology/Oncology at [address] [place] [address] Sony Lyons MD [facility] [place] [address] Dottie Lira APRN [address] [place] [address] [place] [address] 06/02/2025 2:00 PM EST Office Visit Dermatology at [place] [address] [facility] [place] [address] Sam Johns MD [address], [place] [address] documented as of this encounter Results * [...] lump documented in this encounter Care Teams White Sugar Pan Tank Operator Relationship Specialty Start Date End Date Cristy Son APRN PCP - General 06/19/10 09/17/17 documented as of this encounter
--- OUTSIDE RECORDS SUMMARY | 2024-08-12 20:15 | XMS_ITS | Encounter Summary ---
[place] [address] Care Team Providers Care Police Manager Name Role Phone HowardCristy mccollum Delmi VARGAS Primary Care Provider [phone] Encounter Details Date Type Department Care Team (Late st Contact Info) Description 09/09/2012 11:59 PM EST Anesthesia [place] [phone] April Sanchez PA Anesthesia Record Procedure Summary Procedure Name Responsible [...] DOS. April Sanchez PA-C Pre-Admission Testing Pager [phone] [place] [facility] [place]: documented in this encounter Plan of Treatment Upcoming Encounters Date Type Department Care Team (Late st Contact Info) Description 09/16/2024 2:30 PM EST Office Visit Hematology/Oncology at [address] [phone] Sony Lyons MD [facility] [place] [place] [address] Dottie Lira APRN [address] [place] [address] DR HEMATOLOGY [place] [address] 06/02/2025 2:00 PM EST Office Visit Dermatology at [address] [place] [address] Sam Johns MD [address] [place] [address] RD, [place] [address] documented as of this encounter Visit Diagnoses Not on filedocumented in this encounter Care Teams Police Manager Relationship Specialty Start Date End Date Cristy Al APRN PCP - General 06/19/10 09/17/17 documented as of this encounter
--- OUTSIDE RECORDS SUMMARY | 2024-08-12 20:15 | XMS_ITS | Encounter Summary ---
Author Organization [facility] [place] [address] Care Team Providers Care Account Classification Clerk Name Role Phone Wilma Nance MD Primary Care Provider Encounter Details Date Type Department Care Team (Late st Contact Info) Description 10/16/2006 Orders [place] [address] Sri Rogers MD [facility] [place] [address] Social History Tobacco Use Types Packs/Day Years [...] 2:30 PM EST Office Visit Hematology/Oncology at [address] [phone] Sony Lyons MD [facility] [place] [address] Dotite Lira APRN [address] [place] [address] DR [place] [address] 06/02/2025 2:00 PM EST Office Visit Dermatology at [address] [place] [address] Sam Johns MD 580 [facility], [place] [address] documented as of this encounter Procedures Procedure Name Priority Date/Time Associated Diagnosis Comments SURGICAL PATHOLOGY REPORT Routine 10/16/2006 4:39 PM EDT documented in this encounter Results * Surgical Pathology Report (10/16/2006 4:39 PM EDT) Pathologist [facility] Surgical Pathology Report [id number] ? Location: 4L The signing pathologist has [...] in rendering the final pathologic diagnosis. [facility] 10/16/2006 4:39 PM EDT Sri Rogers MD PATHOLOGY/CYTOLOGY ORDERABLES Performing Organization Address City/State/[facility] [place] Phone Number [facility] documented in this encounter Visit Diagnoses Not on filedocumented in this encounter Care Teams Account Classification Clerk Relationship Specialty Start Date End Date Wilma Nance MD [address] [place] [address] PCP - General Family Medicine 09/18/17 05/09/24 documented as of this encounter
--- OUTSIDE RECORDS SUMMARY | 2024-08-12 20:15 | XMS_ITS | Encounter Summary ---
[place] [address] Care Team Providers Care Disaster Director Name Role Phone Cristy Al APRN Primary Care Provider [phone] Reason for Visit * Reason Comments Skin Check face only * Consultation (Routine) - Closed Specialty Diagnoses / Procedures Referred By Renan villavicencio Referred To Contact Dermatology Diagnoses long standing nodular lesion on forehead & AK on R cheek Cristy Al APRN [address] [place] [address] Sam Johns MD 580 [facility] [place] [address] Referral ID Status Reason Start Date Expiration Date V isits Requested Visits Authorized [id number] Closed Consult, Test & Treat Connection Center 05/08/2015 05/07/2016 1 1 Encounter Details Date Type Department Care Team (Late st Contact Info) Description 08/29/2015 11:00 AM EST Office Visit Dermatology at [place] [address] [place] [phone] Sam Johns MD [address] [facility] DERMATOLOGY [place], [place] [phone] AK (actinic keratosis); Basal cell carcinoma Social [...] 2:30 PM EST Office Visit Hematology/Oncology at [address] [phone] Sony Lyons MD [facility] [place] [address] Dottie Lira APRN [address] [place] [address] DR HEMATOLOGY AND ONCOLOGY [place], [place] [address] 06/02/2025 2:00 PM EST Office Visit Dermatology at [place] [address] [facility] [place] [address] Sam Johns MD 580 [facility] [place] [address] documented as of this encounter Procedures Procedure [...] unspecified documented in this encounter Care Teams Disaster Director Relationship Specialty Start Date End Date Cristy Al APRN PCP - General 06/19/10 09/17/17 documented as of this encounter
--- OUTSIDE RECORDS SUMMARY | 2024-08-12 20:15 | XMS_ITS | Encounter Summary ---
Author Organization [facility] Address [facility] [place] [address] Care Team Providers Care Try Out Person Name Role Phone VigoRos mccollummary Awad APRN Primary Care Provider [phone] Encounter Details Date Type Department Care Team (Latest Contact Info) Description 07/20/2012 1:57 PM EST - 07/20/2012 11:59 PM [facility] Hospital [place] [address] CLINIC, Sri Martin MD [facility] [place] [address] [place] Discharge Disposition: Home Social History Tobacco [...] PM EST Office Visit Hematology/Oncology at [address] [phone] Sony Lyons MD [facility] [place] [place] [address] Dottie Lira APRN [address] [place] [address] DR HEMATOLOGY AND ONCOLOGY [place], [place] [address] 06/02/2025 2:00 PM EST Office Visit Dermatology at [place] [address] [facility] [place] [address] Sam Johns MD [address] [facility] [address], FUAD A [place]MAT[place] [address] documented as of this encounter Procedures Procedure [...] lump documented in this encounter Care Teams Try Out Person Relationship Specialty Start Date End Date Cristy Al APRN PCP - General 06/19/10 09/17/17 documented as of this encounter
--- OUTSIDE RECORDS SUMMARY | 2024-08-12 20:15 | XMS_ITS | Encounter Summary ---
Author Organization [facility] [place] [address] Care Team Providers Care Supervisor Decorating Name Role Phone Cristy Al APRN Primary Care Provider [phone] Encounter Details Date Type Department Care Team (Late st Contact Info) Description 07/20/2012 1:58 PM EST - 07/20/2012 11:59 PM [facility] Hospital [place] [address] [place] Social History Tobacco Use Types Packs/Day [...] 2:30 PM EST Office Visit Hematology/Oncology at [address] [phone] Sony Lyons MD [facility] [place] [address] Dottie Lira APRN [address] [place] [address] DR [place] [address] 06/02/2025 2:00 PM EST Office Visit Dermatology at [place] [address] [facility] [place] [address] Sam Johns MD [address] [facility] [address], [place] [address] documented as of this encounter Procedures Procedure [...] lump documented in this encounter Care Teams Supervisor Decorating Relationship Specialty Start Date End Date Cristy lA APRN PCP - General 06/19/10 09/17/17 documented as of this encounter
--- OUTSIDE RECORDS SUMMARY | 2024-08-12 20:15 | XMS_ITS | Encounter Summary ---
Author Organization [facility] [place] [address] Care Team Providers Care Customer Support Consultant Name Role Phone Mikaela Cristy Awad APRN Primary Care Provider [phone] Encounter Details Date Type Department Care Team (Late Contact Info) Description 03/13/2016 Ancillary Procedure Radiology Library at [facility] [place] [phone] Wilma Nance MD [address] [place] [phone] Social History Tobacco Use Types Packs/Day Years [...] Office Visit Hematology/Oncology at [address] [phone] Sony Lyons MD [facility] [place] [address] Dottie Lira APRN [address] [place] [address] DR HEMATOLOGY AND ONCOLOGY [place], [place] [phone] 06/02/2025 2:00 PM EST Office Visit Dermatology at [place] [address] [facility] [place] [address] Sam Johns MD [address] [facility] [address], FUAD [place] [address] documented as of this encounter Procedures Procedure Name Priority Date/Time Associated Diagnosis Comments FILM LIBRARY STORAGE ONLY CT ABDOMEN AND PELVIS Routine 03/13/2016 12:00 AM EDT documented in this encounter Results * Film Library- Storage Only CT Abdomen & Pelvis (03/13/2016 12:00 AM EDT) Narrative [facility] - 06/21/2022 2:21 PM EST This exam is auto-finalizing. It's purpose is for storage only. Wilma Nance MD G FILM LIBRARY ORD ERABLES Performing Organization Address City/State/[facility] Co de Phone Number [place], [place] documented in this encounter Visit Diagnoses Not on filedocumented in this encounter Care Teams Customer Support Consultant Relationship Specialty Start Date End Date Cristy Al APRN PCP - General 06/19/10 09/17/17 documented as of this encounter
--- OUTSIDE RECORDS SUMMARY | 2024-08-12 20:15 | XMS_ITS | Encounter Summary ---
[place] [address] Care Team Providers Care Savings Counselor Name Role Phone Mikaela Cristy Awad APRN Primary Care Provider [phone] Encounter Details Date Type Department Care Team (Late st Contact Info) Description 07/06/2010 1:00 PM EST Procedure [place] [address] Social History Tobacco Use Types Packs/Day Years [...] 2:30 PM EST Office Visit Hematology/Oncology at [address] [phone] Sony Lyons MD [facility] [place] [address] Dottie Lira APRN [address] [place] [address] DR HEMATOLOGY AND ONCOLOGY [place], [place] [address] 06/02/2025 2:00 PM EST Office Visit Dermatology at [address] [place] [address] Sam Johns MD [address] [facility], [place] [address] documented as of this encounter Visit Diagnoses Not on filedocumented in this encounter Care Teams Savings Counselor Relationship Specialty Start Date End Date Cristy Al APRN PCP - General 06/19/10 09/17/17 documented as of this encounter
--- OUTSIDE RECORDS SUMMARY | 2024-08-12 20:15 | XMS_ITS | Encounter Summary ---
Author Organization [facility] Address [facility] [place] [address] Care Team Providers Care Film And Video Editor Name Role Phone Cristy Al APRN Primary Care Provider [phone] Encounter Details Date Type Department Care Team (Late st Contact Info) Description 07/06/2010 12:23 PM EST - 07/06/2010 11:59 PM EST Hospital Encounter [facility] OPW Wilma Nance MD [address] [place], [place] [address] Discharge Disposition: Home Social History Tobacco Use [...] PM EST Office Visit Hematology/Oncology at [address] [phone] Sony Lyons MD [facility] [place] [address] Dottie Lira APRN [address] [place] [address] DR HEMATOLOGY AND ONCOLOGY [place], [place] [address] 06/02/2025 2:00 PM EST Office Visit Dermatology at [address] [place] [address] Sam Johns MD [address] [facility] TOÑ[place], [place]NA[place] [address] documented as of this encounter Visit Diagnoses Not on filedocumented in this encounter Care Teams Film And Video Editor Relationship Specialty Start Date End Date Cristy Al APRN PCP - General 06/19/10 09/17/17 documented as of this encounter
--- OUTSIDE RECORDS SUMMARY | 2024-08-12 20:15 | XMS_ITS | Encounter Summary ---
[place] [address] Care Team Providers Care Mortar Mixer Name Role Phone Cristy Al SAM Primary Care Provider [phone] Encounter Details Date Type Department Care Team (Late st Contact Info) Description 09/28/2012 7:28 AM EST Anesthesia Event [place] [phone] Mikel Rivas MD Parra, Michelle C, MD Anesthesia Record Procedure Summary Procedure Name Responsible [...] full Cardiovascular Assessment: Pulmonary Assessment: Dental Assessment: Misc Assessment: Anesthesia Plan: ASA 2 MAC, with [...] risks discussed with patient. Plan discussed with COLORIST FORMULATOR. Misc. Assessment: documented in this encounter Plan of Treatment Upcoming Encounters Date Type Department Care Team (Late st Contact Info) Description 09/16/2024 2:30 PM EST Office Visit Hematology/Oncology at [address] [phone] Sony Lyons MD [facility] [place] [address] Dottie Lira APRN [address] [place] [address] DR [place] [address] 06/02/2025 2:00 PM EST Office Visit Dermatology at [address] [place] [address] Sam Johns MD 580 [facility], [place] [address] documented as of this encounter Visit Diagnoses Not on filedocumented in this encounter Care Teams Mortar Mixer Relationship Specialty Start Date End Date Cristy lA APRN PCP - General 06/19/10 09/17/17 documented as of this encounter
--- OUTSIDE RECORDS SUMMARY | 2024-08-12 20:15 | XMS_ITS | Encounter Summary ---
Author Organization [facility] [place] [address] Care Team Providers Care Signaling Design Engineer Name Role Phone Cristy Al APRN Primary Care Provider [phone] Reason for Visit * Reason Comments Obstructive Sleep Apnea Encounter Details Date Type Department Care Team (Late st Contact Info) Description 08/19/2011 10:10 AM EST [place] [address] Alma Myers APRN SUGEY on CPAP (Primary [...] 7.4, avg leak varies bet. 53-70. Today's [place] Score is 5/24, indicating minimal daytime sleepiness [...] Reviewed driving safety; pt is encouraged to basting puller and nap if feeling unsafe behind [...] PM EST Office Visit Hematology/Oncology at [address] [phone] Sony Lyons MD [facility] [place] [address] Dottie Lira APRN [address] [place] [address] DR [place] [address] 06/02/2025 2:00 PM EST Office Visit Dermatology at [address] [place] [address] Sam Johns MD [address] [facility] [address], FUAD Chow [place] [address] documented as of this encounter Visit Diagnoses Diagnosis SUGEY on CPAP- Primary Obstructive sleep apnea (adult) (pediatric) documented in this encounter Care Teams Signaling Design Engineer Relationship Specialty Start Date End Date Cristy Al APRN PCP - General 06/19/10 09/17/17 documented as of this encounter
--- OUTSIDE RECORDS SUMMARY | 2024-08-12 20:15 | XMS_ITS | Encounter Summary ---
Author Organization [facility] Address [facility] [place] [address] Care Team Providers Care Mosaic Layer Name Role Phone Cristy Al APRN Primary Care Provider [phone] Encounter Details Date Type Department Care Team (Late st Contact Info) Description 06/29/2010 9:05 AM EST - 06/29/2010 11:59 PM [facility] Hospital Encounter [facility] OPW Wilma Nance MD [address] [place], [place] [address] Discharge Disposition: Home Social History Tobacco Use [...] 2:30 PM EST Office Visit Hematology/Oncology at [address] [phone] Sony Lyons MD [facility] [place] [address] Dottie Lira APRN [address] [place] [address] DR HEMATOLOGY AND ONCOLOGY [place], [place] [address] 06/02/2025 2:00 PM EST Office Visit Dermatology at [address] [place] [address] Sam Johns MD 580 [facility] TOÑ[place], [place]NABEL [place] [address] documented as of this encounter Visit Diagnoses Not on filedocumented in this encounter Care Teams Mosaic Layer Relationship Specialty Start Date End Date Cristy Al APRN PCP - General 06/19/10 09/17/17 documented as of this encounter
--- OUTSIDE RECORDS SUMMARY | 2024-08-12 20:15 | XMS_ITS | Encounter Summary ---
[place] [address] Care Team Providers Care Professional Development Instructor Name Role Phone Cristy Al APRN Primary Care Provider [phone] Reason for Visit * Reason Comments Obstructive Sleep Apnea Encounter Details Date Type Department Care Team (Late st Contact Info) Description 01/15/2011 11:10 AM EDT [place] [address] Alma Myers APRN SUGEY (obstructive sleep apnea) (Primary Dx) Social [...] 1.9, avg leak varies bet. 53-70. Today's [place] Score is 1/24, indicating minimal daytime sleepiness [...] medications (morphine sulfate, oxycodone) ACTIVE PROBLEM LIST SGUEY Assessment: Pt is doing well on using [...] Reviewed driving safety; pt is encouraged to pullman car repairer and nap if feeling unsafe behind the wheel at any time. 3. RTC 6 mos/PRN documented in this encounter Plan of Treatment Upcoming Encounters Date Type Department Care Team (Late st Contact Info) Description 09/16/2024 2:30 PM EST Office Visit Hematology/Oncology at [address] [phone] Sony Lyons MD [facility] [place] [address] Dottie Lira APRN [address] [place] [address] [place] [address] 06/02/2025 2:00 PM EST Office Visit Dermatology at [place] [address] [facility] [place] [address] Sam Johns MD [address] [facility] [address], FUAD [place] [address] documented as of this encounter Visit Diagnoses Diagnosis SUGEY (obstructive sleep apnea)- Primary Obstructive sleep apnea (adult) (pediatric) documented in this encounter Care Teams Professional Development Instructor Relationship Specialty Start Date End Date Cristy Al APRN PCP - General 06/19/10 09/17/17 documented as of this encounter
--- OUTSIDE RECORDS SUMMARY | 2024-08-12 20:15 | XMS_ITS | Encounter Summary ---
Author Organization [facility] [place] [address] Care Team Providers Care Mixing Machine Attendant Name Role Phone Mikaela Cristy Awad APRN Primary Care Provider [phone] Encounter Details Date Type Department Care Team (Late Contact Info) Description 01/24/2017 Ancillary Procedure Radiology Library at [facility] [place] [phone] Wilma Nance MD [address] [place] [address] Social History Tobacco Use Types Packs/Day Years [...] PM EST Office Visit Hematology/Oncology at [address] [phone] Sony Lyons MD [facility] [place] [address] Dottie Lira APRN [address] [place] [address] DR HEMATOLOGY AND ONCOLOGY [place], [place] [address] 06/02/2025 2:00 PM EST Office Visit Dermatology at [place] [address] [facility] [place] [address] Sam Johns MD [address] [facility] [address], [place] [address] documented as of this encounter Procedures Procedure Name Priority Date/Time Associated Diagnosis Comments FILM LIBRARY STORAGE ONLY CT ABDOMEN AND PELVIS Routine 01/24/2017 12:00 AM EDT documented in this encounter Results * Film Library- Storage Only CT Abdomen & Pelvis (01/24/2017 12:00 AM EDT) Narrative [facility] - 06/21/2022 2:21 PM EST This exam is auto-finalizing. It's purpose is for storage only. Wilma Nance MD G FILM LIBRARY ORD ERABLES Performing Organization Address City/State/[facility] Co de Phone Number [place], [place] documented in this encounter Visit Diagnoses Not on filedocumented in this encounter Care Teams Mixing Machine Attendant Relationship Specialty Start Date End Date Cristy Al APRN PCP - General 06/19/10 09/17/17 documented as of this encounter
--- OUTSIDE RECORDS SUMMARY | 2024-08-12 20:15 | XMS_ITS | Encounter Summary ---
Author Organization [facility] [address] Care Team Providers Care Monument Installer Name Role Phone Mikaela Cristy Aawd APRN Primary Care Provider [phone] Encounter Details Date Type Department Care Team (Late Contact Info) Description 09/09/2012 1:00 PM EST [place] [phone] Anesthesia Record Procedure Summary Procedure Name Responsible [...] PM EST Office Visit Hematology/Oncology at [address] [phone] Sony Lyons MD [facility] [place] [address] Dottie Lira APRN [address] [place] [address] DR HEMATOLOGY AND ONCOLOGY [place], [place] [address] 06/02/2025 2:00 PM EST Office Visit Dermatology at [place] [address] [facility] [place] [phone] Sam Johns MD [address] [facility] [address], [place] [address] documented as of this encounter Visit Diagnoses Not on filedocumented in this encounter Care Teams Monument Installer Relationship Specialty Start Date End Date Cristy Al APRN PCP - General 06/19/10 09/17/17 documented as of this encounter
== END 2024-08-12 20:07 | disposition home or self-care (01) ==
LOC: NCHCN 20:06
PROVIDERS: Nurse Practitioner Family; PCP Family Medicine; Visit Provider Family Medicine
DX: R73.03 Prediabetes (principal); C18.4 Malignant neoplasm of transverse colon
CPT/HCPCS: 80053; 82378; 83036; 85025

== ENCOUNTER 2024-10-05 03:06 | Outpatient (CLI) | payer MEDICARE, BC, SELFPAY ==
[2024-10-05 12:18] LABS: Abs Immature Grans 0.03 10^3/uL (0.0-0.06); Absolute Basophil Count 0.05 10^3/uL (0.0-0.2); Absolute Eosinophil Count 0.15 10^3/uL (0.0-0.7); Absolute Lymphocyte Count 1.86 10^3/uL (1.2-3.4); Absolute Monocyte Count 0.52 10^3/uL (0.1-0.8); Absolute Neutrophil Count 2.84 10^3/uL (1.2-6.7); Basophils % 0.9 %; Eosinophils % 2.8 %; HCT 37.4 % (36.0-46.0); HGB 12.2 g/dL (11.2-15.7); Immature Grans % 0.6 %; Lymphocytes % 34.1 %; MCH 32.3 pg (27.0-33.0); MCHC 32.6 % (32.0-36.0); MCV 99 fL (80-95); MPV 9.6 fL (8.0-11.0); Monocytes % 9.5 %; Neutrophils % 52.1 %; Platelet Count 163 10^3/uL (130-400); RBC 3.78 10^6/uL (3.93-5.22); RDW 13.4 % (11.7-14.6); RDW-SD 48.3 fL; WBC 5.45 10^3/uL (4.4-10.8)
[2024-10-05 12:52] LABS: ALT 21 U/L (14-59); AST 19 U/L (15-37); Albumin 3.6 g/dL (3.4-5.0); Alkaline Phosphatase 72 U/L (46-116); Anion Gap 8.2 mmol/L (3-11); BUN 18 mg/dL (7-18); Bilirubin, Total 0.4 mg/dL (0.2-1.0); CO2 26.8 mmol/L (21.0-32.0); Calcium 9.5 mg/dL (8.5-10.1); Chloride 107 mmol/L (98-107); Glucose 103 mg/dL (74-106); Potassium 4.4 mmol/L (3.5-5.1); Sodium 142 mmol/L (136-145); Total Protein 7.1 g/dL (6.4-8.2)
[2024-10-06 16:23] LABS: Albumin 59.2 % (55.8-66.1); Albumin g/dL 3.8 g/dL (3.6-5.2); Comment (See Note); Total Protein 6.5 g/dL (6.3-8.2)
[2024-10-07 08:15] LABS: Immunotyping, Serum (See Note)
== END 2024-10-05 03:07 | disposition home or self-care (01) ==
PROVIDERS: Psychiatry & Neurology Neurology; PCP Family Medicine; Visit Provider Nurse Practitioner Family
DX: G62.9 Polyneuropathy, unspecified (principal); C18.4 Malignant neoplasm of transverse colon; R60.0 Localized edema
CPT/HCPCS: 36415; 80053; 84165; 84443; 85025; 86320

== ENCOUNTER → 2024-10-20 12:55 | Outpatient (BNVA) | payer MEDICARE, BC, SELFPAY | PROVIDERS: PCP Family Medicine; Referring Provider Family Medicine; Visit Provider Physical Therapy Assistant | DX: I73.9 Peripheral vascular disease, unspecified (principal) | CPT/HCPCS: 93922 ==

== ENCOUNTER → 2024-10-20 13:15 | Outpatient (BNVA) | payer MEDICARE, BC, SELFPAY | PROVIDERS: PCP Family Medicine; Referring Provider Family Medicine; Visit Provider Podiatrist | DX: I73.9 Peripheral vascular disease, unspecified (principal) | CPT/HCPCS: 93922 ==

== ENCOUNTER → 2024-12-15 15:21 | Outpatient (BNVA) | payer MEDICARE, BC, SELFPAY | PROVIDERS: PCP Family Medicine; Referring Provider Family Medicine; Visit Provider Podiatrist | DX: L60.3 Nail dystrophy (principal); B35.1 Tinea unguium; L60.2 Onychogryphosis; N18.9 Chronic kidney disease, unspecified; I73.89 Other specified peripheral vascular diseases; R60.0 Localized edema; G62.9 Polyneuropathy, unspecified; I87.2 Venous insufficiency (chronic) (peripheral); F17.200 Nicotine dependence, unspecified, uncomplicated; R09.89 Other specified symptoms and signs involving the circulatory and respiratory systems; L65.9 Nonscarring hair loss, unspecified; R20.8 Other disturbances of skin sensation; R23.8 Other skin changes; L53.8 Other specified erythematous conditions; L85.8 Other specified epidermal thickening | CPT/HCPCS: 11721 ==

== ENCOUNTER 2025-04-04 07:41 | Outpatient (CLI) | payer MEDICARE, BC, SELFPAY ==
--- NOTE | 2025-04-04 | DI.CT_ITS ---
Exam(s) CT CHEST/ABD/PEL W EXAM: CT CHEST/ABD/PEL W CLINICAL HISTORY: TRANSVERSE COLON CANCER C18.4. TECHNIQUE: Imaging Protocol: Axial computed tomography images with coronal and sagittal reformatted images were created and reviewed. Computer aided detection (CAD) was utilized. CONTRAST MATERIAL: Intravenous: Omnipaque 350 Contrast volume:100 ml Oral: yes / COMPARISON: CT CT CHEST/ABD/PEL W from 03/10/2024 FINDINGS: CHEST: Pulmonary parenchyma: Mildly chronic interstitial changes. No consolidation. No dominant measurable mass. Tracheobronchial tree: No bronchiectasis. No mucous plugging.No bronchial wall thickening. Pleura: No effusion or pneumothorax. Mediastinum: Within normal limits. Pulmonary arteries: No gross evidence of emboli. Cardiovascular: The heart is moderately enlarged. Coronary artery calcifications are present. No pericardial effusion. Thoracic aorta non- dilated. Bones: Left shoulder prosthesis. There are severe degenerative changes of the right shoulder. There are prominent endplate osteophytes in the thoracic spine as well as scoliosis. No lytic or blastic lesions. No compression fractures. Soft tissues: Unremarkable. ABDOMEN and PELVIS: Liver: Normal density. No suspicious mass. Gallbladder and biliary tract: No evidence of stones or wall thickening. Common bile duct again measures 11 millimeters. Pancreas: Normal density, no abnormal calcifications or inflammatory process. Spleen: Normal. Kidneys: Normal size, contour and axis. No radiodense stones. No obstructive uropathy. No suspicious masses seen. Adrenal glands: No masses seen. Aorta: Abdominal portion non-dilated. Atherosclerotic calcifications. Lymph nodes: Within normal limits. Soft tissues: Fat containing hernia above the level of the umbilicus.. Bladder: Partially obscured by artifact from hip prosthesis. Unremarkable. Bowel: No obstruction or bowel wall thickening. Extensive diverticulosis. No evidence of diverticulitis. No visible mass. The appendix is normal. Peritoneal cavity: No ascites. No focal collection. No mesenteric inflammatory response. No free air. Bones: Left hip prosthesis. Posterior fusion hardware from L4 through S1. Extensive degenerative disc changes. Reproductive organs: Partially obscured by hip prosthesis artifact. IMPRESSION: No evidence of metastatic disease or other acute abnormality in the chest, abdomen or pelvis. RADIATION DOSE DELIVERED: Total DLP DATA REPOSITORY: All CT scans at this facility are submitted to the National Radiology Data Registry (NRDR) Dose Index Registry (DIR) with the [employer] (ACR). RADIATION OPTIMIZATION: All CT scans at this facility use at least one of these dose optimization techniques: automated exposure control; mA and/or kV adjustment per patient size (includes targeted exams where dose is matched to clinical indication); or iterative reconstruction.
[2025-04-04] MEDS: Barium Sulfate 2% W/V-Berry Smoothie 450 ML BTL PO (13:05)
[2025-04-04] MEDS: Barium Sulfate 2% W/V-Creamy Vanilla Smoothie 450 ML BTL PO (13:05)
[2025-04-04 13:33] LABS: Abs Immature Grans 0.02 10^3/uL (0.0-0.06); HCT 22.3 % (36.0-46.0); Immature Grans % 0.6 %; MCH 35.4 pg (27.0-33.0); MCHC 31.4 % (32.0-36.0); MCV 113 fL (80-95); MPV 12.7 fL (8.0-11.0); RBC 1.98 10^6/uL (3.93-5.22); RDW 15.9 % (11.7-14.6); RDW-SD 64.6 fL; WBC 3.21 10^3/uL (4.4-10.8)
[2025-04-04 13:48] LABS: ALT 17 U/L (14-59); AST 14 U/L (15-37); Albumin 3.6 g/dL (3.4-5.0); Alkaline Phosphatase 48 U/L (46-116); Anion Gap 7.1 mmol/L (3-11); BUN 16 mg/dL (7-18); Bilirubin, Total 0.5 mg/dL (0.2-1.0); CO2 26.9 mmol/L (21.0-32.0); Calcium 8.8 mg/dL (8.5-10.1); Chloride 107 mmol/L (98-107); Estimated GFR 56.60 (mL/min/1.73m2); Glucose 105 mg/dL (74-106); Potassium 4.2 mmol/L (3.5-5.1); Sodium 141 mmol/L (136-145); Total Protein 6.6 g/dL (6.4-8.2)
[2025-04-04 14:09] LABS: Platelet Count 60 10^3/uL (130-400)
[2025-04-04 14:10] LABS: Anisocytosis 2+; Hypochromasia 1+
[2025-04-04 14:26] LABS: HGB 7.0 g/dL (11.2-15.7)
[2025-04-04] MEDS: Normal Saline - Diluent 50 ML VIAL IJ (15:30)
[2025-04-04] MEDS: Omnipaque 350 MG/ML 100 ML BTL IJ (15:30)
[2025-04-04] MEDS: Normal Saline Flush 10 ML SYR IVP (15:30)
[2025-04-05 10:59] LABS: CEA 2.0 ng/mL (See Note)
== END 2025-04-04 08:01 ==
LOC: DI 04-05 07:41
PROVIDERS: PCP Family Medicine; Visit Provider Nurse Practitioner Family
DX: C18.4 Malignant neoplasm of transverse colon (principal)
CPT/HCPCS: 74177; 80048; 80053; 80076; 83690; 86850; 86900; 86901; 86920; 87798; 99283; 71260; 81003; 82378; 82607; 82728; 83540; 83550; 83605; 83735; 84439; 84443; 85025; 85610; 85730; 86618; J3490; P9016

== ENCOUNTER 2025-04-04 15:33 | Emergency (ER) | payer MEDICARE, BC, SELFPAY ==
[2025-04-04] VITALS (8 sets, daily range): BP systolic 120–177; BP diastolic 42–74; PULSE 59–87; RESP 18–20; TEMP 35.7–36.6; O2SAT 95–98
--- NOTE | 2025-04-04 15:48 | W.ED.GENAD ---
Discharge Plan Disposition Patient Disposition: Home Condition: Stable Discharge Details Clinical Impression: Anemia Primary Care Provider: Wilma Nance V ED Provider: Isrrael Berkowitz Home Meds and New Rx's Prescriptions: Continued furosemide 20 mg tablet 20 mg PO DAILY PRN (Reason: lower extremity edema) budesonide-formoterol [Symbicort] 160-4.5 mcg/actuation HFA aerosol inhaler 1 puff inhalation BID Patient Comments: 11/07/23 (prescribed by PCP) (DME) Oxygen Tank See Rx Instructions .ROUTE .MEDSUPPLY Qty: 1 Rx Instructions: As directed,2L of oxygen bled into BiPAP. oxycodone-acetaminophen [Percocet] 10-325 mg tablet 2 tab PO TID PRN atenolol 25 mg tablet 25 mg PO HS fluoxetine [Prozac] 30 mg PO DAILY nystatin 100,000 unit/gram powder 1 applic topical DAILY Trelegy Ellipta 100-62.5-25 mcg blister with device 1 inh inhalation DAILY bupropion HCl 150 mg tablet sustained-release 12 hr 150 mg PO BID multivitamin [Daily-Wayne] 1 EACH tablet 1 ea PO DAILY (DME) cane Device See Rx Instructions .ROUTE .MEDSUPPLY Qty: 1 0RF Rx Instructions: As directed naloxone [Narcan] 4 mg/actuation spray,non-aerosol 4 mg LAWRENCE Q3M PRN Rx Instructions: spray 1 dose into ONE nostril; alternate nostrils w each dose until help arrives losartan 100 mg tablet 100 mg PO DAILY Patient Comments: TAKE 1 TABLET BY MOUTH EVERY DAY cephalexin 500 mg capsule 2,000 mg PO .COMPLEX Rx Instructions: 2,000 mg orally before dental work; fluticasone propionate [Flonase Allergy Relief] 50 mcg/actuation spray,suspension 2 spray intranasal DAILY PRN Rx Instructions: administer into each nostril simvastatin 10 mg tablet 10 mg PO QPM folic acid 1 mg tablet 1 mg PO DAILY ketoconazole 2 % cream 1 applic topical DAILY cholecalciferol (vitamin D3) 50 mcg (2,000 unit) capsule 50 mcg PO DAILY nitroglycerin 0.3 mg tablet, sublingual 0.4 mg sublingual Q5M PRN Rx Instructions: do not exceed 3 doses per episode levothyroxine 175 MCG tablet 175 mcg PO DIRECTED Patient Comments: daily morphine 15 mg tablet extended release 15 mg PO BID Patient Comments: TAKE 1 TABLET BY MOUTH TWICE DAILY albuterol sulfate [ProAir HFA] 8.5 GM HFA aerosol inhaler 2 puff Inhalation DIRECTED PRN30 Days Qty: 0 0RF Patient Comments: prior to exercise nystatin 100,000 unit/gram cream 1 applic topical DAILY Qty: 30 0RF Rx Instructions: apply to affected areas once daily fentanyl 25 mcg/hr patch 72 hour 1 patch transdermal Q72H Qty: 10 0RF Patient Comments: top of belly last replaced 09/15 Rx Instructions: apply one patch, leave in place fr 72 hours, then repeat as needed for chronic pain Discharge Instructions Instructions: Aplastic anemia Additional Instructions: You were seen in the emergency department for your anemia. We gave you 1 unit of blood, please call Dr. Lyons's office back and have them review your results, I am recommending that they place an urgent referral to hematology for you for possible bone marrow studies to rule out any leukemia or myelodysplastic syndrome. Please have them schedule recheck of your hemoglobin before the end of the week. Please return for any profound lethargy, black stools, any other emergent concerns. Referrals: Wilma Nance MD [Primary Care Provider, Medicine] Sony Lyons MD [MD CONSULTING PHYSICIAN, Oncology] Discharge Data Discharge Date/Time-TO BE ENTERED AT DEPARTURE: 04/04/25 20:14 HPI General Date/Time Provider Initiated Documentation: 04/04/25 15:47. HPI Narrative: 79 year-old female presents to ED today by POV/ambulating with a chief complaint of report of low hemoglobin by outpatient study from Oncology office, with onset unknown. Quality described as feels a bit fatigued, no radiation to black/tarry stools, hematemesis, coffee-ground emesis, nausea/vomiting, fever, cough, chest pain. Severity is described as moderate for fatigue. Palliating factors include nothing specific attempted. Provoking factors include nothing specific. Events leading up to the incident/Associated Symptoms: Patient has been in remission from colon cancer for years. Patient not anticoagulated. Related Data Home Medications ?Medication ?Instructions ?Recorded ?Confirmed levothyroxine 175 mcg tablet 175 mcg PO DIRECTED 09/17/14 04/04/25 multivitamin (Daily-Wayne tablet) 1 ea PO DAILY 08/15/17 04/04/25 cane #1 ea 02/24/20 04/04/25 naloxone 4 mg/actuation nasal 4 mg intranasal Q3M PRN 02/24/20 04/04/25 spray (Narcan) Oxygen #1 ea 02/15/21 04/04/25 oxycodone-acetaminophen 10 mg-325 2 tab PO TID PRN 09/04/21 04/04/25 mg tablet (Percocet) morphine 15 mg tablet,extended 15 mg PO BID 05/09/22 04/04/25 release albuterol sulfate 90 mcg/actuation 2 puff inhalation DIRECTED PRN 05/16/22 04/04/25 aerosol inhaler (ProAir HFA) 30 days #0 grams fentanyl 25 mcg/hr transdermal 1 patch transdermal Q72H #10 ea 05/16/22 04/04/25 patch nystatin 100,000 unit/gram topical 1 applic topical DAILY #30 grams 05/16/22 04/04/25 cream cephalexin 500 mg capsule 2,000 mg PO .COMPLEX 08/19/22 04/04/25 losartan 100 mg tablet 100 mg PO DAILY 08/19/22 04/04/25 atenolol 25 mg tablet 25 mg PO HS 09/15/22 04/04/25 fluticasone propionate 50 2 spray intranasal DAILY PRN 12/26/22 04/04/25 mcg/actuation nasal spray,suspension (Flonase Allergy Relief) simvastatin 10 mg tablet 10 mg PO QPM 12/26/22 04/04/25 folic acid 1 mg tablet 1 mg PO DAILY 04/13/23 04/04/25 cholecalciferol (vitamin D3) 50 50 mcg PO DAILY 08/19/23 04/04/25 mcg (2,000 unit) capsule ketoconazole 2 % topical cream 1 applic topical DAILY 08/19/23 04/04/25 budesonide-formoterol HFA 160 1 puff inhalation BID 12/01/23 12/16/24 mcg-4.5 mcg/actuation aerosol inhaler (Symbicort) fluoxetine [Prozac] 30 mg PO DAILY 12/01/23 04/04/25 furosemide 20 mg tablet 20 mg PO DAILY PRN lower extremity 12/01/23 04/04/25 edema nitroglycerin 0.3 mg sublingual 0.4 mg sublingual Q5M PRN 08/06/24 04/04/25 tablet nystatin 100,000 unit/gram topical 1 applic topical DAILY 08/06/24 04/04/25 powder bupropion HCl 150 mg tablet,12 hr 150 mg PO BID 12/09/24 04/04/25 sustained-release fluticasone fur. 100 mcg-umeclid 1 inh inhalation DAILY 12/09/24 04/04/25 62.5 mcg-vilant 25 mcg inhalat.powder (Trelegy Ellipta) Previous Rx's ?Medication ?Instructions ?Recorded cane #1 ea 02/24/20 albuterol sulfate 90 mcg/actuation 2 puff inhalation DIRECTED PRN 05/16/22 aerosol inhaler (ProAir HFA) 30 days #0 grams fentanyl 25 mcg/hr transdermal 1 patch transdermal Q72H #10 ea 05/16/22 patch nystatin 100,000 unit/gram topical 1 applic topical DAILY #30 grams 05/16/22 cream Allergies Allergy/AdvReac Type Severity Reaction Status Date / Time formoterol (From Dulera) Allergy Intermediate unknown Verified 04/04/25 15:41 gabapentin Allergy Intermediate lower Verified 04/04/25 15:41 extremity edema doxycycline Allergy Nausea Verified 04/04/25 15:41 mometasone furoate (From AdvReac Intermediate thrush Verified 04/04/25 15:41 Dulera) mirabegron (From Myrbetriq) AdvReac Increased Verified 04/04/25 15:41 blood pressure General Stated Complaint: GenMedical SACHI: 3 Review of Systems All systems reviewed & are unremarkable except as noted in HPI and below Exam Narrative Exam Narrative: GENERAL APPEARANCE: Well-nourished, non-toxic, awake and alert, atraumatic, no acute distress. SKIN: Warm, pink, dry, intact, without rashes/lesions/ulcerations. HEAD: Normocephalic, atraumatic, normal hair distribution for gender/age. EYES: Normal conjunctiva, no exudates on lids/lashes. ENT: Nares patent, no circumoral cyanosis, no facial swelling NECK: Supple, trachea midline, painless cervical ROM. LUNGS/CHEST: Lungs CTA bilaterally, non-labored respirations, normal A/P diameter, symmetrical expansion, no chest wall deformity HEART (CV/PV): Regular rate and rhythm without murmur, no peripheral edema, no JVD. ABDOMEN: Soft, non-distended, no guarding, no tenderness. MSK: Normal ROM, no swelling/deformity to bilateral UEs or LEs, moving all extremities without weakness, no cyanosis, spine midline without tenderness, normal curvature. NEURO: Mental Status AAOx4 - alert to person, place, time, events No facial droop, no forehead involvement. Motor: No focal weakness - strength 5/5 in bilateral UEs and LEs, proximal and distal, symmetric. Sensory: sensation intact to light touch globally. Gait normal: patient ambulated without ataxia into ED room. PSYCH: euthymic, cooperative, pleasant, appropriate speech Course Vital Signs Vital signs: Vital Signs Temperature 36.2 C L 04/04/25 15:39 Pulse 59 L 04/04/25 15:39 Respiratory Rate 18 04/04/25 15:39 Blood Pressure 120/74 04/04/25 15:39 Pulse Oximetry 98 04/04/25 15:39 Temperature 36.2 C L 04/04/25 15:45 Pulse 59 L 04/04/25 15:45 Respiratory Rate 18 04/04/25 15:45 Blood Pressure 120/74 04/04/25 15:45 Pulse Oximetry 98 04/04/25 15:45 Medical Decision Making This dictation utilizes [id number] dictation software and may contain unedited grammatical errors. 79 year-old female presents to ED today by POV/ambulating with a chief complaint of report of low hemoglobin- 7, by outpatient study from Oncology office, with onset unknown. Quality described as feels a bit fatigued, no radiation to black/tarry stools, hematemesis, coffee-ground emesis, nausea/vomiting, fever, cough, chest pain. Severity is described as moderate for fatigue. Palliating factors include nothing specific attempted. Provoking factors include nothing specific. Events leading up to the incident/Associated Symptoms: Patient has been in remission from colon cancer for years. Patients' medical history: Colon cancer, Panchal's esophagus, ataxia, peripheral venous insufficiency, peripheral neuropathy, history of prediabetes, CKD, history of Mobitz type II, aortic valve sclerosis, COPD, asthma. Family and social history: Noncontributory. Pertinent exam findings / vital signs include vital stable, benign cardiopulmonary exam, benign abdomen. Differential / pathologies of concern include GI bleeding, blood dyscrasia, iron deficiency or B12 deficiency anemia, tickborne illness. Diagnostic studies of: - Recheck of labs with CBC, CMP, PT/PTT/INR, lactate, lipase, TSH, iron studies, B12, UA, tick and Lyme panel, type and screen. - CBC shows a hemoglobin of 7.4 with pancytopenia - Lactate 2.1 - Coagulation studies benign - CMP shows no actionable abnormality - Iron studies showed normal iron and TIBC with elevated ferritin - B12 within normal limits - TSH is low with normal T4 - UA is benign - Tick panel pending - Type and screen shows O+ with negative antibody screen Interventions of: - 1 unit packed red blood cells. ED Course/Assessment/Plan: 79-year-old female in remission from colon cancer presents with pancytopenia and low hemoglobin by outpatient reading, her past reading was 7 and she is now 7.4 I do not suspect any GI hemorrhage, she reports no symptoms of GI hemorrhage. Tick panel is pending, I do suspect she has a blood dyscrasia recommend she repeat hemoglobin by the end of the week and seek a referral to hematology from Dr. Lyons's office, patient verbalized understanding of the plan and return to ED criteria for any emergent concerns. Findings not consistent with GI hemorrhage, active bleeding, iron deficiency anemia, infection. Disposition of anemia. Patient verbalized understanding of the plan and return to ED criteria and engaged in shared decision making. Medical Records Medical records reviewed: Yes I reviewed the patient's medical records. Lab Data Lab results reviewed: Yes I reviewed the patient's lab results. Labs: Laboratory Tests Range/Units 04/04/25 04/04/25 04/04/25 16:00 16:14 18:14 WBC (4.4-10.8) 10^3/uL 4.25 L RBC (3.93-5.22) 10^6/uL 2.15 L Hgb (11.2-15.7) g/dL 7.4 L Hct (36.0-46.0) % 24.2 L MCV (80-95) fL 113 H MCH (27.0-33.0) pg 34.4 H MCHC (32.0-36.0) % 30.6 L RDW (11.7-14.6) % 15.7 H Plt Count (130-400) 10^3/uL 66 L MPV (8.0-11.0) fL Immature Gran % % 0.2 Neutrophils % % 42.4 Lymphocytes % % 45.6 Monocytes % % 9.9 Eosinophils % % 1.4 Basophils % % 0.5 Nucleated RBC % (0.0-0.3) % 3.3 H Absolute Neutrophils (1.2-6.7) 10^3/uL 1.80 Absolute Lymphocytes (1.2-3.4) 10^3/uL 1.94 Absolute Monocytes (0.1-0.8) 10^3/uL 0.42 Absolute Eosinophils (0.0-0.7) 10^3/uL 0.06 Absolute Basophils (0.0-0.2) 10^3/uL 0.02 RBC Morphology See Below Macrocytosis 2+ PT (9.1-11.1) sec 10.9 INR (0.9-1.1) 1.1 APTT (20.6-30.2) sec 23.6 VBG Lactate (<or=2.0) mmol/L 2.1 Sodium (136-145) mmol/L 138 Potassium (3.5-5.1) mmol/L 4.7 Chloride (98-107) mmol/L 103 Carbon Dioxide (21.0-32.0) mmol/L 27.3 Anion Gap (3-11) mmol/L 7.7 BUN (7-18) mg/dL 15 Creatinine (0.55-1.02) mg/dL 1.0 Est GFR (CKD-EPI 2020) (mL/min/1.73m2) 56.60 Glucose (74-106) mg/dL 101 Calcium (8.5-10.1) mg/dL 9.2 Magnesium (1.8-2.4) mg/dL 1.9 Iron (50-170) ug/dL 149 TIBC (250-450) ug/dL 299 Transferrin % Sat (15-50) % 50 Ferritin (8-252) ng/mL 436 H Total Bilirubin (0.2-1.0) mg/dL 0.5 Conjugated Bilirubin (0.0-0.2) mg/dL 0.2 AST (15-37) U/L 16 ALT (14-59) U/L 20 Alkaline Phosphatase (46-116) U/L 50 Total Protein (6.4-8.2) g/dL 7.2 Albumin (3.4-5.0) g/dL 3.9 Lipase (<78) U/L 31 Vitamin B12 (193-986) pg/mL 327 TSH (0.36-3.74) uIU/mL 0.17 L Free T4 (0.76-1.46) ng/dL 1.39 Urine Color (Yellow) Yellow Urine Clarity (Clear) Clear Urine pH (5-8) 6.0 Ur Specific [place] (1.005-1.025) 1.010 Urine Protein (Neg-Trace) mg/dL Negative Urine Ketones (Negative) mg/dL Negative Urine Blood (Negative) Negative Urine Nitrite (Negative) Negative Urine Bilirubin (Negative) Negative Urine Urobilinogen (Up to 0.2) mg/dL 0.2 Ur Leukocyte Esterase (Negative) Negative Urine Glucose (Negative) mg/dL Negative B. divergens/MO-1 PCR (Negative) Negative Babesia duncani (PCR) (Negative) Negative Babesia microti DNA PCR (Negative) Negative Lyme Disease Antibody (Negative) Negative E.chaffeensis DNA (PCR) (Negative) Negative E.ewingii/canis DNA PCR (Negative) Negative E.muris eauclairensis (PCR) (Negative) Negative Path Cons Comment A. phagocytophilum (PCR) (Negative) Negative Blood B. miyamotoi (PCR) (Negative) Negative ABO/Rh O Positive Antibody Screen NEGATIVE Crossmatch See Detail PFSH All Active Problems Anemia (Chronic) Edema of foot (Acute) Hypoxia (Acute) Aortic valve sclerosis (Acute) Physician orders for life-sustaining treatment (POLST) form indicates patient wish for [id number]-tar-[id number] status (Acute) ACP (advance care planning) (Acute) Pulmonary fibrosis (Acute) Depression (Chronic) Degenerative joint disease of left ankle and foot (Acute) Ataxic gait (Acute) Palliative care status (Acute) Mobitz II (Acute) Known to cardiology since 2011, medical management. 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) Bradycardia following surgery (Acute) Full code status (Acute) Mucinous adenocarcinoma of colon (Acute) Lumbar post-laminectomy syndrome (Acute) Lumbar post-laminectomy syndrome (Acute) Globus sensation (Acute) Psychological factors affecting medical condition (Acute) Ventral hernia (Acute) Pain disorder associated with psychological and physical factors (Acute) Panchal esophagus (Acute) Adjustment disorder (Chronic) Leg edema (Acute) Ataxia (Acute) Pain, joint, foot, right (Acute) Venous (peripheral) insufficiency (Acute) Smoker (Acute) Medical History (Updated 04/04/25 @ 19:47 by SEJAL Plunkett) Infection of right eye Knee pain Acquired talipes planus Moderate asthma Hx of cardiovascular disorder Accidental fall Abdominal pain in female Urinary incontinence Dysphagia Localized edema Muscular incoordination Diastasis of muscle Disorder of sacrum History of neck pain Hip pain Shoulder joint pain Ankle instability Diverticula of intestine Hx of chronic obstructive lung disease Essential hypertension Visual impairment Cataract Acute iridocyclitis Polyneuropathy Carpal tunnel syndrome Tobacco user Anxiety with depression Anemia Colon cancer partial coloectomy History of second degree heart block Low back pain Irregular heart rate Arthritis Lumbar spondylosis Ulnar nerve impingement Cervical spondylosis Cigarette nicotine dependence Obesity Asthma, moderate persistent BCC (basal cell carcinoma) Ovarian mass Body mass index (BMI) of 40.0-44.9 in adult Degenerative disc disease, lumbar Anxiety 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 Fusion of lumbosacral spine Left hip pain Sacroiliac joint pain Restless leg syndrome Knee pain, bilateral First degree AV block H/O urinary frequency Bilateral carpal tunnel syndrome Myalgia Visual acuity reduced Edema Onychodystrophy Abnormal auditory perception (01/10/14) Gastroesophageal reflux disease (01/10/14) Recurrent UTI (01/30/17) Sensory hearing loss, bilateral (02/14/14) Urgency incontinence (01/30/17) Colonic polyp HTN (hypertension) Allergic rhinitis Cervicalgia Tobacco use COPD (chronic obstructive pulmonary disease) Trigger finger Hamstring tendonitis Fibromyalgia Rotator cuff syndrome Lumbar stenosis Foot pain Diverticulosis Major depression Bilateral cataracts Surgical History History of esophagogastroduodenoscopy (~09/2023) History of partial colectomy Hx of breast surgery H/O hemicolectomy (~05/08/22) Hx of shoulder surgery Left H/O spinal fusion L4-S1 History of knee replacement History of hip replacement History of carpal tunnel release of both wrists Hx of total knee replacement Hx of colonoscopy (~09/2023) Right distal ulnar fracture s/p ORIF DOS: 07/27/20 Family History Father Diabetes Hepatic disorder Alcohol use disorder Son Diabetes Multiple sclerosis Daughter Hx of migraines Mother Dementia Brother Alcohol use disorder Cancer ESOPHAGUS Social History Smoking/Tobacco Use Status: Current every day Tobacco Type: cigarettes Smoking packs per day: 1 Smoking cigarettes per day: 20.0 Smoking risk assessment performed?: Yes Alcohol Intake: current Alcohol Intake frequency: 3 or more drinks per day Alcohol type: beer Details: DAILY Drug use: Never Substance use type: does not use Details: alcohol: t-2, 3-4 beers Housing: house Number of Children: 9 Pets and animals: Yes Pets and animals: dog(s) and horse(s) Current gender identity: female What is your relationship status?: Panel score (0-1 are the most socially isolated patients): 0 What type of physical activity do you participate in: walking Seatbelt use: always Do you feel safe at home: Yes Do you feel safe in your relationship?: Yes PAWSS Have you Been Recently Intoxicated or Drunk Within the Last 30 days?: No Have you Ever Experienced Previous Episodes of Alcohol Withdrawal?: No Have you ever Experienced Withdrawal Seizures?: No Have you ever Experienced Delirium Tremens(DT)s?: No Have you ever undergone Alcohol Rehabilitation Treatment (i.e, inpt ot outpatient treatment programs)?: No Have you ever Experienced Blackouts?: No Have you ever Combined Alcohol with other Downers within the last 90 days?: No Have you ever Combined Alcohol with any other Substance of Abuse during the last 90 days?: No Positive Blood Alcohol level on Presentation? [PCS.BAL]: No Evidence of Increased Autonomic Activity (i.e. HR>120, tremor, sweating, agitation, nausea)?: No Result: 0
[2025-04-04 16:34] LABS: Abs Immature Grans 0.01 10^3/uL (0.0-0.06); HCT 24.2 % (36.0-46.0); HGB 7.4 g/dL (11.2-15.7); Immature Grans % 0.2 %; MCH 34.4 pg (27.0-33.0); MCHC 30.6 % (32.0-36.0); MCV 113 fL (80-95); RBC 2.15 10^6/uL (3.93-5.22); RDW 15.7 % (11.7-14.6); RDW-SD 63.8 fL; WBC 4.25 10^3/uL (4.4-10.8)
[2025-04-04 16:35] LABS: Glucose Negative (Negative)
[2025-04-04 16:47] LABS: INR 1.1 (0.9-1.1); PTT Activated 23.6 sec (20.6-30.2); Prothrombin Time 10.9 sec (9.1-11.1)
[2025-04-04 16:54] LABS: Platelet Count 66 10^3/uL (130-400)
[2025-04-04 16:55] LABS: Iron 149 ug/dL (50-170); Total Iron Binding Capacity 299 ug/dL (250-450); Transferrin Sat 50 % (15-50)
[2025-04-04 16:56] LABS: Macrocytosis 2+
[2025-04-04 17:09] LABS: ALT 20 U/L (14-59); AST 16 U/L (15-37); Albumin 3.9 g/dL (3.4-5.0); Alkaline Phosphatase 50 U/L (46-116); Anion Gap 7.7 mmol/L (3-11); BUN 15 mg/dL (7-18); Bilirubin, Direct 0.2 mg/dL (0.0-0.2); Bilirubin, Total 0.5 mg/dL (0.2-1.0); CO2 27.3 mmol/L (21.0-32.0); Calcium 9.2 mg/dL (8.5-10.1); Chloride 103 mmol/L (98-107); Estimated GFR 56.60 (mL/min/1.73m2); Glucose 101 mg/dL (74-106); Lipase 31 U/L (<78); Magnesium 1.9 mg/dL (1.8-2.4); Potassium 4.7 mmol/L (3.5-5.1); Sodium 138 mmol/L (136-145); TSH (W/Ref FT4) 0.17 uIU/mL (0.36-3.74); Total Protein 7.2 g/dL (6.4-8.2)
[2025-04-04 17:16] LABS: Ferritin 436 ng/mL (8-252); Vitamin B12 327 pg/mL (193-986)
[2025-04-06 12:05] LABS: Lyme Ab w Rflx to Lyme Confirm Negative (Negative)
[2025-04-07 13:22] LABS: B. miyamotoi PCR Negative (Negative); Babesia divergens/MO-1 Negative (Negative); Ehrlichia muris eauclairensis Negative (Negative)
== END 2025-04-04 20:14 | disposition home or self-care (01) ==
PROVIDERS: Emergency Provider Physician Assistant; PCP Family Medicine
DX: D64.9 Anemia, unspecified (principal)
CPT/HCPCS: 99283 ×2; 80048; 80076; 83690; 86850; 86900; 86901; 86920; 87798; 81003; 82607; 82728; 83540; 83550; 83605; 83735; 84439; 84443; 85025; 85610; 85730; 86618; P9016

== ENCOUNTER 2025-04-06 14:44 | Outpatient (CLI) | payer MEDICARE, BC, SELFPAY ==
[2025-04-06 10:40] LABS: Abs Immature Grans 0.03 10^3/uL (0.0-0.06); HCT 25.5 % (36.0-46.0); HGB 8.2 g/dL (11.2-15.7); Immature Grans % 0.8 %; MCH 34.5 pg (27.0-33.0); MCHC 32.2 % (32.0-36.0); MCV 107 fL (80-95); RBC 2.38 10^6/uL (3.93-5.22); RDW 17.9 % (11.7-14.6); RDW-SD 71.6 fL; WBC 3.89 10^3/uL (4.4-10.8)
[2025-04-06 10:49] LABS: Macrocytosis 2+; Platelet Count 60 10^3/uL (130-400)
[2025-04-06 11:19] LABS: Iron 159 ug/dL (50-170); Total Iron Binding Capacity 275 ug/dL (250-450); Transferrin Sat 58 % (15-50)
[2025-04-06 11:58] LABS: ALT 19 U/L (14-59); AST 15 U/L (15-37); Albumin 3.6 g/dL (3.4-5.0); Alkaline Phosphatase 52 U/L (46-116); Anion Gap 8.0 mmol/L (3-11); BUN 17 mg/dL (7-18); Bilirubin, Total 0.5 mg/dL (0.2-1.0); CO2 26.0 mmol/L (21.0-32.0); Calcium 9.3 mg/dL (8.5-10.1); Chloride 106 mmol/L (98-107); Estimated GFR 56.60 (mL/min/1.73m2); Ferritin 426 ng/mL (8-252); Folate > 20.0 ng/mL (8.6-20.0); Glucose 106 mg/dL (74-106); Potassium 4.7 mmol/L (3.5-5.1); Sodium 140 mmol/L (136-145); Total Protein 6.8 g/dL (6.4-8.2); Vitamin B12 354 pg/mL (193-986)
[2025-04-06 12:08] LABS: LDH 224 U/L (81-234)
== END 2025-04-06 14:45 | disposition home or self-care (01) ==
LOC: LBO 14:46
PROVIDERS: PCP Family Medicine; Visit Provider Nurse Practitioner Family
DX: D64.9 Anemia, unspecified (principal)
CPT/HCPCS: 36415; 80053; 82607; 82728; 82746; 83010; 83540; 83550; 83615; 85025; 85045

== ENCOUNTER → 2025-04-15 09:57 | Outpatient (BNVA) | payer MEDICARE, BC, SELFPAY | PROVIDERS: PCP Family Medicine; Referring Provider Family Medicine; Visit Provider Surgery | DX: D64.9 Anemia, unspecified (principal); Z87.19 Personal history of other diseases of the digestive system; Z85.038 Personal history of other malignant neoplasm of large intestine | CPT/HCPCS: 99214 ==

== ENCOUNTER 2025-04-20 08:00 | Outpatient (RCR) | payer MEDICARE, BC, SELFPAY ==
[2025-04-14 09:09] LABS: Abs Immature Grans 0.01 10^3/uL (0.0-0.06); HCT 23.5 % (36.0-46.0); HGB 7.3 g/dL (11.2-15.7); Immature Grans % 0.3 %; MCH 34.0 pg (27.0-33.0); MCHC 31.1 % (32.0-36.0); MCV 109 fL (80-95); RBC 2.15 10^6/uL (3.93-5.22); RDW 17.2 % (11.7-14.6); RDW-SD 68.4 fL; WBC 3.45 10^3/uL (4.4-10.8)
[2025-04-14 09:45] LABS: Platelet Count 56 10^3/uL (130-400)
[2025-04-14 09:46] LABS: Anisocytosis 2+; Hypochromasia 1+
[2025-04-14 09:47] LABS: Macrocytosis 1+; Microcytosis 1+
[2025-04-14 10:33] VITALS: BP 143/77; PULSE 62; RESP 19; TEMP 36.6; O2SAT 97
[2025-04-14 10:48] VITALS: BP 136/85; PULSE 60; RESP 18; TEMP 36.4; O2SAT 94
[2025-04-14 11:08] VITALS: BP 131/59; PULSE 58; RESP 19; TEMP 36.2; O2SAT 97
[2025-04-14 11:18] VITALS: BP 158/74; PULSE 64; RESP 18; TEMP 36; O2SAT 96
[2025-04-14] MEDS: Normal Saline Flush 10 ML SYR IVP (11:48)
[2025-04-14 12:30] VITALS: BP 158/65; PULSE 79; RESP 18; TEMP 36.4; O2SAT 94
[2025-04-20] MEDS: Normal Saline Flush 10 ML SYR IVP (08:25)
[2025-04-20 08:39] LABS: Abs Immature Grans 0.02 10^3/uL (0.0-0.06); HCT 25.9 % (36.0-46.0); HGB 8.3 g/dL (11.2-15.7); Immature Grans % 0.6 %; MCH 33.6 pg (27.0-33.0); MCHC 32.0 % (32.0-36.0); MCV 105 fL (80-95); RBC 2.47 10^6/uL (3.93-5.22); RDW 17.2 % (11.7-14.6); RDW-SD 66.9 fL; WBC 3.62 10^3/uL (4.4-10.8)
[2025-04-20 09:03] LABS: Platelet Count 58 10^3/uL (130-400)
[2025-04-20 09:04] LABS: Hypochromasia 2+; Poikilocytes 2+; Polychromasia Present
== END 2025-04-26 23:59 | disposition home or self-care (01) ==
LOC: INF 08:00
PROVIDERS: PCP Family Medicine; Visit Provider Nurse Practitioner Family
DX: D64.9 Anemia, unspecified (principal)
CPT/HCPCS: 36415; 36430; 86850; 86900; 86901; 86920; 85025; P9016

== ENCOUNTER 2025-04-29 15:43 | Outpatient (REF) | payer MEDICARE, BC, SELFPAY | END 2025-04-29 15:44 | disposition home or self-care (01) | LOC: LBN 15:43 | PROVIDERS: PCP Family Medicine; Visit Provider Nurse Practitioner Family | DX: D50.0 Iron deficiency anemia secondary to blood loss (chronic) (principal) | CPT/HCPCS: 82274 ==

== ENCOUNTER → 2025-05-09 14:00 | Outpatient (BNVA) | payer MEDICARE, BC, SELFPAY | PROVIDERS: PCP Family Medicine; Referring Provider Family Medicine; Visit Provider Podiatrist | DX: G25.81 Restless legs syndrome (principal); L60.3 Nail dystrophy; I87.2 Venous insufficiency (chronic) (peripheral); I73.89 Other specified peripheral vascular diseases; N18.9 Chronic kidney disease, unspecified; G62.9 Polyneuropathy, unspecified; R60.0 Localized edema; R09.89 Other specified symptoms and signs involving the circulatory and respiratory systems; L65.9 Nonscarring hair loss, unspecified; R20.8 Other disturbances of skin sensation; R23.4 Changes in skin texture; L60.2 Onychogryphosis; L60.8 Other nail disorders; L85.8 Other specified epidermal thickening | CPT/HCPCS: 11721 ==

== ENCOUNTER 2025-05-23 08:40 | Day surgery (SDC) | payer MEDICARE, BC, SELFPAY ==
--- NOTE | 2025-05-23 08:46 | W.ANESPRE ---
General Info Date of Service Date Performed: 05/23/25 Height: 5 ft 3 in Weight: 107.955 kg Body Mass Index (BMI): 42.1 Surgical Procedure: Operation Date: 05/23/25 10:20 Proposed Procedure Side Surgeon p Gastroscopy Maryan Vaughan MD Meds Allergies and Home Medications Allergies Allergy/AdvReac Type Severity Reaction Status Date / Time formoterol (From Dulera) Allergy Intermediate unknown Verified 05/23/25 09:15 gabapentin Allergy Intermediate lower Verified 05/23/25 09:15 extremity edema doxycycline Allergy Nausea Verified 05/23/25 09:15 mometasone furoate (From AdvReac Intermediate thrush Verified 05/23/25 09:15 Dulera) mirabegron (From Myrbetriq) AdvReac Increased Verified 05/23/25 09:15 blood pressure Home Medication ?Medication ?Instructions ?Recorded levothyroxine 175 mcg tablet 175 mcg PO DIRECTED 09/17/14 multivitamin (Daily-Wayne tablet) 1 ea PO DAILY 08/15/17 cane #1 ea 02/24/20 naloxone 4 mg/actuation nasal 4 mg intranasal Q3M PRN 02/24/20 spray (Narcan) Oxygen #1 ea 02/15/21 oxycodone-acetaminophen 10 mg-325 2 tab PO TID PRN 09/04/21 mg tablet (Percocet) morphine 15 mg tablet,extended 15 mg PO BID 05/09/22 release albuterol sulfate 90 mcg/actuation 2 puff inhalation DIRECTED PRN 05/16/22 aerosol inhaler (ProAir HFA) 30 days #0 grams fentanyl 25 mcg/hr transdermal 1 patch transdermal Q72H #10 ea 05/16/22 patch nystatin 100,000 unit/gram topical 1 applic topical DAILY #30 grams 05/16/22 cream cephalexin 500 mg capsule 2,000 mg PO .COMPLEX 08/19/22 losartan 100 mg tablet 100 mg PO DAILY 08/19/22 atenolol 25 mg tablet 25 mg PO HS 09/15/22 fluticasone propionate 50 2 spray intranasal DAILY PRN 12/26/22 mcg/actuation nasal spray,suspension (Flonase Allergy Relief) simvastatin 10 mg tablet 10 mg PO QPM 12/26/22 folic acid 1 mg tablet 1 mg PO DAILY 04/13/23 cholecalciferol (vitamin D3) 50 50 mcg PO DAILY 08/19/23 mcg (2,000 unit) capsule ketoconazole 2 % topical cream 1 applic topical DAILY 08/19/23 budesonide-formoterol HFA 160 1 puff inhalation BID 12/01/23 mcg-4.5 mcg/actuation aerosol inhaler (Symbicort) fluoxetine [Prozac] 30 mg PO DAILY 12/01/23 nitroglycerin 0.3 mg sublingual 0.4 mg sublingual Q5M PRN 08/06/24 tablet nystatin 100,000 unit/gram topical 1 applic topical DAILY 08/06/24 powder fluticasone fur. 100 mcg-umeclid 1 inh inhalation DAILY 12/09/24 62.5 mcg-vilant 25 mcg inhalat.powder (Trelegy Ellipta) bisacodyl 5 mg tablet,delayed 5 mg PO ONCE #4 tabs 04/15/25 release (Dulcolax (bisacodyl)) polyethylene glycol 3350 17 17 g PO ONCE #238 grams 04/15/25 gram/dose oral powder Current Visit Medications: Current Medications Generic Name Dose Route Start Last Admin Trade Name Freq PRN Reason Stop Dose Admin Ringer's Solution 1,000 mls @ 80 mls/hr 05/23/25 06:00 IV 05/23/25 23:59 INFUSION LORI IV Miscellaneous Supplies 1 each 05/23/25 06:00 Iv Access IV 05/23/25 23:59 DIRECTED LORI Sodium Chloride 0 ml 05/23/25 06:00 Normal Saline Flush 10 Ml Syr IV 05/23/25 23:59 PRN PRN Sodium Chloride 0 ml 05/23/25 06:00 Normal Saline 10 Ml Vial IJ 05/23/25 23:59 DIRECTED PRN Sterile Water 0 ml 05/23/25 06:00 Water,Injection,Sterile 10 Ml Vial IJ 05/23/25 23:59 DIRECTED PRN PFSH Active Problems Active Problems: Problem Status Onset Code Lumbar radiculitis Acute M54.16 Spinal stenosis, lumbar region with neurogenic claudication Acute M48.062 Financial difficulties Acute Z59.9 Acute on chronic anemia Acute D64.9 History of colon cancer Acute Z85.038 History of duodenal ulcer Acute Z87.19 Edema of foot Acute R60.0 Hypoxia Acute R09.02 Aortic valve sclerosis Acute I35.8 Physician orders for life-sustaining treatment (POLST) form indicates patient wish for [id number] status Acute Z66 ACP (advance care planning) Acute Z71.89 Pulmonary fibrosis Acute J84.10 Depression Chronic F32.A Degenerative joint disease of left ankle and foot Acute M19.072 Ataxic gait Acute R26.0 Palliative care status Acute Z51.5 Mobitz II Acute Hypothyroidism Chronic CKD (chronic kidney disease) Chronic Mixed stress and urge urinary incontinence Acute N39.46 History of prediabetes Acute Z87.898 Peripheral neuropathy Acute G62.9 Chronic pain Chronic G89.29 SUGEY on CPAP Chronic G47.33, Z99.89 Severe obesity Acute E66.01 Periodic limb movement disorder Acute 10/23/ G47.61 Obstructive sleep apnea syndrome Acute G47.33 Idiopathic sleep related nonobstructive alveolar hypoventilation Acute G47.34 Bradycardia following surgery Acute I97.89 Full code status Acute Z78.9 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 Lumbar post-laminectomy syndrome Acute M96.1 Lumbar post-laminectomy syndrome Acute M96.1 Globus sensation Acute R09.89 Psychological factors affecting medical condition Acute F54 Ventral hernia Acute K43.9 Pain disorder associated with psychological and physical factors Acute F45.42 Panchal esophagus Acute K22.70 Adjustment disorder Chronic F43.20 Leg edema Acute R60.0 Ataxia Acute R27.0 Pain, joint, foot, right Acute M25.571 Venous (peripheral) insufficiency Acute I87.2 Smoker Acute F17.200 Medical History Medical History Chronic pain of lower extremity, bilateral Infection of right eye Knee pain Acquired talipes planus Moderate asthma Hx of cardiovascular disorder Accidental fall Abdominal pain in female Urinary incontinence Dysphagia Localized edema Muscular incoordination Diastasis of muscle Disorder of sacrum History of neck pain Hip pain Shoulder joint pain Ankle instability Diverticula of intestine Hx of chronic obstructive lung disease Essential hypertension Visual impairment Cataract Acute iridocyclitis Polyneuropathy Carpal tunnel syndrome Tobacco user Anxiety with depression Anemia Colon cancer partial coloectomy History of second degree heart block Low back pain Irregular heart rate Arthritis Lumbar spondylosis Ulnar nerve impingement Cervical spondylosis Cigarette nicotine dependence Obesity Asthma, moderate persistent BCC (basal cell carcinoma) Ovarian mass Body mass index (BMI) of 40.0-44.9 in adult Degenerative disc disease, lumbar Anxiety 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 Fusion of lumbosacral spine Left hip pain Sacroiliac joint pain Restless leg syndrome Knee pain, bilateral First degree AV block H/O urinary frequency Bilateral carpal tunnel syndrome Myalgia Visual acuity reduced Edema Onychodystrophy Abnormal auditory perception (01/10/14) Gastroesophageal reflux disease (01/10/14) Recurrent UTI (01/30/17) Sensory hearing loss, bilateral (02/14/14) Urgency incontinence (01/30/17) Colonic polyp HTN (hypertension) Allergic rhinitis Cervicalgia Tobacco use COPD (chronic obstructive pulmonary disease) Trigger finger Hamstring tendonitis Fibromyalgia Rotator cuff syndrome Lumbar stenosis Foot pain Diverticulosis Major depression Bilateral cataracts Medical History Comments:: Bradycardia post op Surgical History Surgical History History of esophagogastroduodenoscopy (~09/2023) History of partial colectomy Hx of breast surgery H/O hemicolectomy (~05/08/22) Hx of shoulder surgery Left H/O spinal fusion L4-S1 History of knee replacement History of hip replacement History of carpal tunnel release of both wrists Hx of total knee replacement Hx of colonoscopy (~09/2023) Right distal ulnar fracture s/p ORIF DOS: 07/27/20 Tobacco Smoking/Tobacco Use Status: Current every day Tobacco Type: cigarettes Smoking packs per day: 1 Smoking cigarettes per day: 20.0 Alcohol Alcohol Intake: current Alcohol intake frequency: 3 or more drinks per day Alcohol type: beer Details: DAILY Substance Use Substance use: Never Substance use type: does not use Vital Signs and Lab Results Vital Signs Most Recent Vital Signs in EMR: Temp Pulse Resp BP Pulse Ox 36.4 C L 63 16 139/58 L 96 05/23/25 08:50 05/23/25 08:50 05/23/25 08:50 05/23/25 08:50 05/23/25 08:50 Lab Results Blood Type / Crossmatch: Antibody Screen NEGATIVE 05/04/25 Crossmatch See Detail 05/04/25 Complete Blood Count: WBC, (4.4-10.8) 3.43 10^3/uL L 05/18/25, 08:20 RBC, (3.93-5.22) 2.44 10^6/uL L 05/18/25, 08:20 Hgb, (11.2-15.7) 8.1 g/dL L 05/18/25, 08:20 Hct, (36.0-46.0) 25.5 % L 05/18/25, 08:20 Plt Count, (130-400) 57 10^3/uL L 05/18/25, 08:20 Imaging and Studies Imaging and Studies Study information below may be from another EMR and interpreted by another provider. Please see original notes in EMR for more complete details. EKG Summary: 09/16/23 Conclusion Sinus rhythm...normal P axis, V-rate 60- 99 Nonspecific T abnrm, anterolateral leads...T <-0.10mV, I aVL V2-V6 01/11/2022 Conclusion Sinus rhythm...normal P axis, V-rate 60- 99 Prolonged VT interval...VT >220, V-rate 50- 90 Stress Test Summary: 03/22/2022 Clinical Reason for Termination: Fatigue, Dyspnea Stress Symptoms: General Fatigue, Dyspnea Exercise duration: 4 min00 sec Exercise capacity: 2.29 METs Angina Score: None Rate Pressure Product: 61850 Stress ECG Conclusion 1. Resting electrocardiogram showed first-degree AV block, periods of Mobitz 1 second-degree AV block 2. Patient exercised on a Billy protocol and completed a workload of 2.29 METS 3. Peak heart rate achieved was 88% of predicted for age 4. Electrocardiographic portion of the test was negative for myocardial ischemia 5. PVCs were seen 6. See MPI report Stress Test Summary STAGETime (mins)Speed (mph)Grade (%)[id number]/64 [id number]/8293% 1 min [id number]/9897% 3 min [id number]/9098% 6 min [id number]/7098% Patient ambulated on treadmill with a manual modified Billy protocol due to patient's unsteady gait and physical limitation. Patient ambulated for 4 minutes on treadmill with speed of 1.5-2.0 mph and 0%- 2% grade. SpO2 during ambulation was 86% - 91%. Patient reported mild dyspnea during exercise stress which resolved in first minute of recovery. Target heart rate was achieved under these treadmill settings. Patient tolerated testing well. MPI Conclusion Normal myocardial perfusion without evidence of ischemia or prior infarction EF is 66%, wall motion is normal Clinical Reason for Termination: Fatigue, Dyspnea Stress Symptoms: General Fatigue, Dyspnea Exercise duration: 4 min00 sec Exercise capacity: 2.29 METs Angina Score: None Rate Pressure Product: 35717 Stress ECG Conclusion 1. Resting electrocardiogram showed first-degree AV block, periods of Mobitz 1 second-degree AV block 2. Patient exercised on a Billy protocol and completed a workload of 2.29 METS 3. Peak heart rate achieved was 88% of predicted for age 4. Electrocardiographic portion of the test was negative for myocardial ischemia 5. PVCs were seen 6. See MPI report MPI Conclusion Normal myocardial perfusion without evidence of ischemia or prior infarction EF is 66%, wall motion is normal Echocardiogram Summary: 03/26/2022 Conclusion Normal left ventricular wall thickness and chamber size. Estimated ejection fraction is 60% Wall motion is normal Normal right ventricular size and systolic function Both atria are normal in size Trileaflet sclerotic aortic valve without stenosis or regurgitation There is no additional structural or hemodynamically significant valvular disease Pulmonary Function Summary: 05/08/2018 IMPRESSION Normal pulmonary function study. Clinical correlation recommended. For comparison purposes, this study was compared to previous one from 10/30/2015 and 12/15/2015, the patient has a stable FVC and basically stable, mildly improved FEV1 of a total of 70 cc. Clinical correlation recommended. Anesthesia Assessment and Plan Anesthesia History Personal History: No History of Anesthesia Complications Family History: No Family History of Anesthesia Complications Exercise Tolerance Exercise Tolerance: Metabolic Equivalents<4 Cardiac & Pulmonary Exam Cardiac Exam: Normal S1/S2 Heart Sounds Pulmonary Exam: Clear Bilateral Breath Sounds Cardiac and Pulmonary Comment:: BALDERRAMA, chronic smoker's cough, breathing good today per patient, COPD exacerbation last month improved with nebulizer Implantable Cardiac Device Does patient have a Pacemaker or an ICD?: No Airway Exam Known Difficult Airway: No Mallampati Class: 1 Mouth Opening: Normal (> 3cm) Thyromental Distance: Less than 3 cm Neck Range of Motion: Full ROM Neck Circumference: Normal Teeth Condition: Generalized Poor Dentition (none loose per patient) ASA Classification ASA Score: ASA 3 Emergency Case?: No NPO Status NPO Status: NPO Clears >2 hours, Solids >8 hours Anesthesia Plan Resuscitation Status: Full Code Anesthesia Technique: General Anesthesia Airway Planned: Natural Airway Monitors Used: Standard Monitors Preoperative Comments:: 79 yo EGD. Sig PMHx: BMI >40, asthma/COPD (has not been using her inhalers), CKD (GFR 56), anxiety, chronic pain, fibromyalgia, mobitz II/first degree (junctional today), GERD, HTN, hypothyroid, sleep apnea, spinal stenosis, RLS. daily smoker, daily EtOH. Previous Anes: lincoln 2, grade 2b.
[2025-05-23 08:50] VITALS: BP 139/58; PULSE 63; RESP 16; TEMP 36.4; O2SAT 96
[2025-05-23 08:52] VITALS: BMI 42.1
--- NOTE | 2025-05-23 09:03 | W.PM.HP.N ---
Date of service: 05/23/25 Time of Service: 09:03 Assessment and Plan Assessment and plan (1) History of duodenal ulcer: Status: Acute (2) Acute on chronic anemia: Status: Acute Assessment and plan: Normocytic anemia with normal iron levels. Other anemia workup is not clear for a cause. I agree that upper endoscopy should be performed for evaluation. 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 She had colonoscopy that was normal and unremarkable in 2023 so we are holding off on colonoscopy at this time as she has no signs or symptoms of digestive bleeding. Last year when she underwent endoscopy she had an esophagogastroduodenoscopy performed as well and was found to have a duodenal ulcer at that time. She also carries a diagnosis of Panchal's esophagus in her medical record and an EGD could be done now to evaluate for bleeding from either of those previously identified problems. Upper endoscopy does change rapidly compared to lower endoscopy and an upper endoscopy is indicated at present time. Proceed as planned with EGD today. (3) Panchal esophagus: Status: Acute (4) History of colon cancer: Status: Acute History of Present Illness Narrative: HPI: 79yo F here for egd for anemia evaluation. HPI from her march office visit is as follows for reference. No interval change in health. She is thomas for a bone biopsy soon, thats all she has planned that is different from when I saw her last. The patient is an 80-year-old female who presents for anemia. She was referred for endoscopy for acute on chronic anemia. She has a history of colon cancer and had her first colonoscopy since resection done in 2023. She recently underwent a CT scan, which showed no abnormalities. However, her blood work revealed low hemoglobin levels. Her nurse practitioner at [facility] [place], who she sees for cancer follow-ups, advised her to undergo endoscopy. The patient recalls that after her initial surgery, it was recommended that she have a colonoscopy annually for the first two years. . She has a history of heart block and has had a heart murmur all her life, but no other heart-related issues. She is curious if there could be a leak at the junction where her colon was resected and reattached. She has not experienced any bleeding hemorrhoids and notes that her stool is consistently orange-brown in color. Her hemoglobin levels have typically been around 12, but they have decreased since the spring. She is unsure of the cause of this sudden drop, speculating it could be due to changes in her eating schedule or lifestyle. She maintains a healthy diet rich in iron. The patient denies any black stools, rectal bleeding, blood in the stools, melena, hematochezia, nausea, abdominal pain, change in bowel habits, unplanned weight loss, poor appetite, vomiting. She denies any digestive symptoms. She has a history of spinal stenosis. PFSH All Active Problems Lumbar radiculitis (Acute) Spinal stenosis, lumbar region with neurogenic claudication (Acute) Financial difficulties (Acute) Acute on chronic anemia (Acute) History of colon cancer (Acute) History of duodenal ulcer (Acute) Edema of foot (Acute) Hypoxia (Acute) Aortic valve sclerosis (Acute) Physician orders for life-sustaining treatment (POLST) form indicates patient wish for iy-vvo-zziaxseqxdi status (Acute) ACP (advance care planning) (Acute) Pulmonary fibrosis (Acute) Depression (Chronic) Degenerative joint disease of left ankle and foot (Acute) Ataxic gait (Acute) Palliative care status (Acute) Mobitz II (Acute) Known to cardiology since 2011, medical management. 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) Bradycardia following surgery (Acute) Full code status (Acute) Mucinous adenocarcinoma of colon (Acute) Lumbar post-laminectomy syndrome (Acute) Lumbar post-laminectomy syndrome (Acute) Globus sensation (Acute) Psychological factors affecting medical condition (Acute) Ventral hernia (Acute) Pain disorder associated with psychological and physical factors (Acute) Panchal esophagus (Acute) Adjustment disorder (Chronic) Leg edema (Acute) Ataxia (Acute) Pain, joint, foot, right (Acute) Venous (peripheral) insufficiency (Acute) Smoker (Acute) Medical History Chronic pain of lower extremity, bilateral Infection of right eye Knee pain Acquired talipes planus Moderate asthma Hx of cardiovascular disorder Accidental fall Abdominal pain in female Urinary incontinence Dysphagia Localized edema Muscular incoordination Diastasis of muscle Disorder of sacrum History of neck pain Hip pain Shoulder joint pain Ankle instability Diverticula of intestine Hx of chronic obstructive lung disease Essential hypertension Visual impairment Cataract Acute iridocyclitis Polyneuropathy Carpal tunnel syndrome Tobacco user Anxiety with depression Anemia Colon cancer partial coloectomy History of second degree heart block Low back pain Irregular heart rate Arthritis Lumbar spondylosis Ulnar nerve impingement Cervical spondylosis Cigarette nicotine dependence Obesity Asthma, moderate persistent BCC (basal cell carcinoma) Ovarian mass Body mass index (BMI) of 40.0-44.9 in adult Degenerative disc disease, lumbar Anxiety 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 Fusion of lumbosacral spine Left hip pain Sacroiliac joint pain Restless leg syndrome Knee pain, bilateral First degree AV block H/O urinary frequency Bilateral carpal tunnel syndrome Myalgia Visual acuity reduced Edema Onychodystrophy Abnormal auditory perception (01/10/14) Gastroesophageal reflux disease (01/10/14) Recurrent UTI (01/30/17) Sensory hearing loss, bilateral (02/14/14) Urgency incontinence (01/30/17) Colonic polyp HTN (hypertension) Allergic rhinitis Cervicalgia Tobacco use COPD (chronic obstructive pulmonary disease) Trigger finger Hamstring tendonitis Fibromyalgia Rotator cuff syndrome Lumbar stenosis Foot pain Diverticulosis Major depression Bilateral cataracts Surgical History History of esophagogastroduodenoscopy (~09/2023) History of partial colectomy Hx of breast surgery H/O hemicolectomy (~05/08/22) Hx of shoulder surgery Left H/O spinal fusion L4-S1 History of knee replacement History of hip replacement History of carpal tunnel release of both wrists Hx of total knee replacement Hx of colonoscopy (~09/2023) Right distal ulnar fracture s/p ORIF DOS: 07/27/20 Family History Father Diabetes Hepatic disorder Alcohol use disorder Son Diabetes Multiple sclerosis Daughter Hx of migraines Mother Dementia Brother Alcohol use disorder Cancer ESOPHAGUS Social History Smoking/Tobacco Use Status: Current every day Tobacco Type: cigarettes Smoking packs per day: 1 Smoking cigarettes per day: 20.0 Smoking risk assessment performed?: Yes Alcohol Intake: current Alcohol Intake frequency: 3 or more drinks per day Alcohol type: beer Details: DAILY Drug use: Never Substance use type: does not use Housing: house Number of Children: 9 Pets and animals: Yes Pets and animals: dog(s) and horse(s) Current gender identity: female What is your relationship status?: Panel score (0-1 are the most socially isolated patients): 0 What type of physical activity do you participate in: walking Seatbelt use: always Do you feel safe at home: Yes Do you feel safe in your relationship?: Yes Meds Allergies and Home Medications Allergies Allergy/AdvReac Type Severity Reaction Status Date / Time formoterol (From Dulera) Allergy Intermediate unknown Verified 05/20/25 14:42 gabapentin Allergy Intermediate lower Verified 05/20/25 14:42 extremity edema doxycycline Allergy Nausea Verified 05/20/25 14:42 mometasone furoate (From AdvReac Intermediate thrush Verified 05/20/25 14:42 Dulera) mirabegron (From Myrbetriq) AdvReac Increased Verified 05/20/25 14:42 blood pressure Home Medications ?Medication ?Instructions ?Recorded ?Confirmed ?Type levothyroxine 175 mcg tablet 175 mcg PO DIRECTED 09/17/14 05/20/25 History multivitamin (Daily-Wayne tablet) 1 ea PO DAILY 08/15/17 05/20/25 History cane #1 ea 02/24/20 05/09/25 Rx naloxone 4 mg/actuation nasal 4 mg intranasal Q3M PRN 02/24/20 05/20/25 History spray (Narcan) Oxygen #1 ea 02/15/21 05/09/25 History oxycodone-acetaminophen 10 mg-325 2 tab PO TID PRN 09/04/21 05/20/25 History mg tablet (Percocet) morphine 15 mg tablet,extended 15 mg PO BID 05/09/22 05/20/25 History release albuterol sulfate 90 mcg/actuation 2 puff inhalation DIRECTED PRN 05/16/22 05/20/25 Rx aerosol inhaler (ProAir HFA) 30 days #0 grams fentanyl 25 mcg/hr transdermal 1 patch transdermal Q72H #10 ea 05/16/22 05/20/25 Rx patch nystatin 100,000 unit/gram topical 1 applic topical DAILY #30 grams 05/16/22 05/20/25 Rx cream cephalexin 500 mg capsule 2,000 mg PO .COMPLEX 08/19/22 05/20/25 History losartan 100 mg tablet 100 mg PO DAILY 08/19/22 05/20/25 History atenolol 25 mg tablet 25 mg PO HS 09/15/22 05/20/25 History fluticasone propionate 50 2 spray intranasal DAILY PRN 12/26/22 05/20/25 History mcg/actuation nasal spray,suspension (Flonase Allergy Relief) simvastatin 10 mg tablet 10 mg PO QPM 12/26/22 05/20/25 History folic acid 1 mg tablet 1 mg PO DAILY 04/13/23 05/20/25 History cholecalciferol (vitamin D3) 50 50 mcg PO DAILY 08/19/23 05/20/25 History mcg (2,000 unit) capsule ketoconazole 2 % topical cream 1 applic topical DAILY 08/19/23 05/20/25 History budesonide-formoterol HFA 160 1 puff inhalation BID 12/01/23 05/20/25 History mcg-4.5 mcg/actuation aerosol inhaler (Symbicort) fluoxetine [Prozac] 30 mg PO DAILY 12/01/23 05/20/25 History nitroglycerin 0.3 mg sublingual 0.4 mg sublingual Q5M PRN 08/06/24 05/20/25 History tablet nystatin 100,000 unit/gram topical 1 applic topical DAILY 08/06/24 05/20/25 History powder fluticasone fur. 100 mcg-umeclid 1 inh inhalation DAILY 12/09/24 05/20/25 History 62.5 mcg-vilant 25 mcg inhalat.powder (Trelegy Ellipta) bisacodyl 5 mg tablet,delayed 5 mg PO ONCE #4 tabs 04/15/25 05/20/25 Rx release (Dulcolax (bisacodyl)) polyethylene glycol 3350 17 17 g PO ONCE #238 grams 04/15/25 05/20/25 Rx gram/dose oral powder Exam Narrative Exam Narrative: awake, NAD eomi, MMM midline trachea, neck is symmetric PULM: normal resp effort, equal chest rise with respiration, no wheezing audible CARDIAC: normal PMI, no jvd, regular rate, normal perfusion abdomen is nondistended. extremities are without deformity, normal movement of all four extremities speech is clear and coherent mood and affect are congruent, no focal neurological deficits skin without rash Time Spent Time spent with Patient: <40 minutes Time was spent: preparing to see the patient(eg.review tests), referring, communicating with other health healthcare prof and counseling the patient
[2025-05-23] MEDS: Lactated Ringers 1,000 ML 80 ML IV (09:19)
--- NOTE | 2025-05-23 09:46 | STOM_PTH ---
PATIENT: Shiloh Anderson LOC: [facility] U#:[id number] AGE/SX: 79/F ROOM: RE05/23/[address]: Maryan Vaughan MD : [id number] BED: DIS: 05/23/2025 SPEC #: [id number] RECD: 05/23/25 12:24 STATUS: CHRISTOPHER BOYCE #: [id number] MARY: 05/23/25 09:[address]: Maryan Vaughan DEPT: Surgical Specimen RECD BY: Shahla العراقي ENTERED: 05/23/25 12:25 SP TYPE: STOMACH OTHR DR: Wilma Nance V Tissues: 1 - STOMACH BIOPSY 2 - ESOPHAGUS BIOPSY Procedures: GROSS AND MICRO LEVEL 4 IMMUNOPEROXIDASE STAIN Comments: [id number]
--- NOTE | 2025-05-23 09:50 | W.PM.ENDDOP ---
Date of service: 05/23/25 Time of Service: 09:51 Endoscopy Report DATE OF PROCEDURE: 05/23/25 PRE-OP DIAGNOSIS: 1. Acute on chronic anemia. 2. history duodenal ulcer. 3.Barretts esophagus POST-OP DIAGNOSIS: same (duodenitis without ulcer, esophagitis) PROCEDURE: EGD with biopsy SURGEON: Maryan Vaughan ANESTHESIA TYPE: General:No Airway ESTIMATED BLOOD LOSS: 3 PATHOLOGY: other (1. Antrum biopsy. 2. Distal esophagus biopsy) COMPLICATIONS: None DISPOSITION: same day INDICATIONS: Anemia evaluation in patient with history if duodenal ulcer and Barretts esophagus PROCEDURE DESCRIPTION: Lubricated endoscope was passed through a bite block into the third portion of the duodenum. The endoscope was withdrawn and the duodenum stomach and esophageal mucosa examined. The duodenum appeared mildly friable and mildly inflamed, consistent with duodenitis. Previously noted ulcer seen in 2023 has healed. No ulceration or erosion. No fresh or old blood. The antrum appears normal. The fundus appears normal. The cardia appears normal and there is no evidence of hiatal hernia upon retroflexion. The distal esophagus shows evidence of chronic inflammation without ulceration, varices or candidiasis. The Z-line is irregular at 35cm. Remainder of the esophagus appears normal Cold forceps biopsies obtained from the antrum and the distal esophagus for microscopic evaluation for H. pylori, Barretts esophagitis. The upper digestive system was desufflated and the endoscope withdrawn. No complications. Assessment and plan: Mild to moderate esophagitis.] Mild duodenitis. No ulcer or cause for bleeding otherwise. Esophagitis and duodenitis could cause mild bleeding often enough to contribute to anemia. Recommend PPI daily for duodenitis and for Barretts with esophagitis. Given the barretts, she should continue PPI indefinitely. I will send rx for pantoprazole 40mg daily. Return to see oncology to determine next steps in anemia evaluation and treatment.
[2025-05-23 09:52] VITALS: BP 112/51; PULSE 68; RESP 16; TEMP 36.7; O2SAT 99
--- NOTE | 2025-05-23 09:58 | W.PM.DSUDISC ---
Date of service: 05/23/25 Discharge Plan Disposition Patient Disposition: Home Condition: Stable Discharge Details Reason For Visit: EGD for anemia evaluation Attending Provider: Maryan Vaughan Primary Care Provider: Wilma Nance V Home Meds and New Rx's Prescriptions: New pantoprazole 40 mg tablet,delayed release (DR/EC) 40 mg PO DAILY Qty: 90 3RF Continued budesonide-formoterol [Symbicort] 160-4.5 mcg/actuation HFA aerosol inhaler 1 puff inhalation BID Patient Comments: 11/07/23 (prescribed by PCP) (DME) Oxygen Tank See Rx Instructions .ROUTE .MEDSUPPLY Qty: 1 Rx Instructions: As directed,2L of oxygen bled into BiPAP. oxycodone-acetaminophen [Percocet] 10-325 mg tablet 2 tab PO TID PRN atenolol 25 mg tablet 25 mg PO HS fluoxetine [Prozac] 30 mg PO DAILY nystatin 100,000 unit/gram powder 1 applic topical DAILY Trelegy Ellipta 100-62.5-25 mcg blister with device 1 inh inhalation DAILY multivitamin [Daily-Wayne] 1 EACH tablet 1 ea PO DAILY (DME) cane Device See Rx Instructions .ROUTE .MEDSUPPLY Qty: 1 0RF Rx Instructions: As directed naloxone [Narcan] 4 mg/actuation spray,non-aerosol 4 mg LAWRENCE Q3M PRN Rx Instructions: spray 1 dose into ONE nostril; alternate nostrils w each dose until help arrives losartan 100 mg tablet 100 mg PO DAILY Patient Comments: TAKE 1 TABLET BY MOUTH EVERY DAY cephalexin 500 mg capsule 2,000 mg PO .COMPLEX Rx Instructions: 2,000 mg orally before dental work; fluticasone propionate [Flonase Allergy Relief] 50 mcg/actuation spray,suspension 2 spray intranasal DAILY PRN Rx Instructions: administer into each nostril simvastatin 10 mg tablet 10 mg PO QPM folic acid 1 mg tablet 1 mg PO DAILY ketoconazole 2 % cream 1 applic topical DAILY cholecalciferol (vitamin D3) 50 mcg (2,000 unit) capsule 50 mcg PO DAILY nitroglycerin 0.3 mg tablet, sublingual 0.4 mg sublingual Q5M PRN Rx Instructions: do not exceed 3 doses per episode levothyroxine 175 MCG tablet 175 mcg PO DIRECTED Patient Comments: daily morphine 15 mg tablet extended release 15 mg PO BID Patient Comments: TAKE 1 TABLET BY MOUTH TWICE DAILY albuterol sulfate [ProAir HFA] 8.5 GM HFA aerosol inhaler 2 puff Inhalation DIRECTED PRN30 Days Qty: 0 0RF Patient Comments: prior to exercise nystatin 100,000 unit/gram cream 1 applic topical DAILY Qty: 30 0RF Rx Instructions: apply to affected areas once daily fentanyl 25 mcg/hr patch 72 hour 1 patch transdermal Q72H Qty: 10 0RF Patient Comments: top of belly last replaced 09/15 Rx Instructions: apply one patch, leave in place fr 72 hours, then repeat as needed for chronic pain Discontinued bisacodyl [Dulcolax (bisacodyl)] 5 mg tablet,delayed release (DR/EC) 5 mg PO ONCE Qty: 4 0RF Rx Instructions: Take per colonoscopy instructions provided by ordering providers office polyethylene glycol 3350 17 gram/dose powder 17 g PO ONCE Qty: 238 0RF Rx Instructions: Take per colonoscopy instructions provided by ordering providers office Discharge Instructions Additional Instructions: Mild to moderate esophagitis.] Mild duodenitis. No ulcer or cause for bleeding otherwise. Esophagitis and duodenitis could cause mild bleeding often enough to contribute to anemia. Recommend acid josé antonio daily for duodenitis and for Barretts esophagus with esophagitis. Given the barretts, you should continue pantoprazole indefinitely. I will send prescription for pantoprazole 40mg daily. Return to see oncology to determine next steps in anemia evaluation and treatment. Stand Alone Forms: Anesthesia Discharge Inst.Radha (DSU) Discharge Orders Discharge Orders: Discharge Order (Routine); Ordered 05/23/25 Ordered By: Maryan Vaughan DS: Diagnosis Discharge Diagnosis (1) History of duodenal ulcer: Status: Acute (2) Acute on chronic anemia: Status: Acute (3) Panchal esophagus: Status: Acute (4) Esophagitis determined by endoscopy: Status: Acute (5) Duodenitis: Status: Acute
--- NOTE | 2025-05-23 10:00 | W.ANESPOSTOP ---
Postoperative Evaluation Date, Time and Location Date Performed: 05/23/25 Time Performed: 10:01 Patient Location: Day Surgery Unit Vital Signs Most Recent Imported Vital Signs: Most Recent Vital Signs Temp Pulse Resp BP Pulse Ox 36.7 C 68 16 112/51 L 99 05/23/25 09:52 05/23/25 09:52 05/23/25 09:52 05/23/25 09:52 05/23/25 09:52 Pain Score Most Recent Pain Score: Most Recent Pain Score Pain Level 0 05/23/25 09:52 Assessment Mental Status: Awake (Alert & Oriented to Patient Baseline) Airway and Respiratory Function: Patent airway with normal (patient baseline) respiratory exam Cardiovascular Function: Hemodynamically Stable Hydration Status: Adequately Hydrated Nausea & Vomiting: No Nausea or Vomiting Pain: Pt. Denies Any Pain Peripheral Nerve Block: Patient did not receive a nerve block
[2025-05-23 10:18] VITALS: BP 102/58; PULSE 60; RESP 16; TEMP 36.5; O2SAT 94
--- NOTE | 2025-05-23 10:27 | COLE_ITS ---
Date of service: 05/23/25 Time of Service: : Colonoscopy Report Date of procedure: 05/23/25 Pre-op diagnosis general: Screening for colorectal cancer Post-op diagnosis procedure note: other (1. ascending colon polyp. 2. rectum polyp. 3. cecum AVM) Procedure: Colonoscopy Surgeon: Maryan Vaughan Anesthesia Type: General:No Airway Estimated blood loss (mL): 2 Pathology: other (1. ascending colon polyp. 2. rectum polyp) Complications: None Indications: screening for colorectal cancer Prep: Miralax/Dulcolax (excellent) Procedure Description: Informed consent was obtained and the patient was taken to the procedure area. The patient was placed in left lateral decubitus position on the procedure table. Timeout was performed. Anesthesia was induced. A lubricated colo noscope was inserted through the anus and passed to the cecum. The cecum was identified by the ileocecal valve and the appendiceal orifice. The scope was then slowly withdrawn and the colonic and rectal mucosa examined. TI intubated and examined. It appears normal. 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 Nonbleeding. Ascending colon polyp sessile 7mm by 3mm excised with cold forceps. Removal and retrieval were complete. Rectum polyp 3mm sessile excised with cold forcep. No diverticulosis was seen. The scope was retroflexed in the anorectal junction examined. Uncomplicated internal hemorrhoids present. Assessment and plan: Screening for colorectal cancer Ascending colon polyp rectum polyp Cecum AVM Two subcentimeter polyps removed. Next colonoscopy will be due in 5 years pending pathology. AVM of cecum noted. Nonbleeding. If GI beeding occurs in the future consideration should be given to colonoscopy to evaluate this as a source.
== END 2025-05-23 10:38 | disposition home or self-care (01) ==
PROVIDERS: PCP Family Medicine; Visit Provider Surgery
PROC: 0DJ68ZZ Inspection of Stomach, Via Natural or Artificial Opening Endoscopic (ICD-10-PCS; CPT 43235; principal; 2025-05-23 10:15)
DX: D64.9 Anemia, unspecified (principal); Z87.19 Personal history of other diseases of the digestive system; K22.70 Barrett's esophagus without dysplasia; J44.9 Chronic obstructive pulmonary disease, unspecified; I13.0 Hypertensive heart and chronic kidney disease with heart failure and stage 1 through stage 4 chronic kidney disease, or unspecified chronic kidney disease; N18.9 Chronic kidney disease, unspecified; K21.00 Gastro-esophageal reflux disease with esophagitis, without bleeding; G47.30 Sleep apnea, unspecified
CPT/HCPCS: 43239; 88305; 88361; J2405; J2704

== ENCOUNTER 2025-05-25 08:30 | Outpatient (RCR) | payer MEDICARE, BC, SELFPAY ==
[2025-04-27] MEDS: Normal Saline Flush 10 ML SYR IVP (08:34)
[2025-04-27 08:50] LABS: Abs Immature Grans 0.01 10^3/uL (0.0-0.06); HCT 25.9 % (36.0-46.0); HGB 8.3 g/dL (11.2-15.7); Immature Grans % 0.3 %; MCH 34.2 pg (27.0-33.0); MCHC 32.0 % (32.0-36.0); MCV 107 fL (80-95); MPV 10.8 fL (8.0-11.0); RBC 2.43 10^6/uL (3.93-5.22); RDW 17.1 % (11.7-14.6); RDW-SD 66.0 fL; WBC 3.63 10^3/uL (4.4-10.8)
[2025-04-27 09:12] LABS: Anisocytosis 2+; Platelet Count 59 10^3/uL (130-400)
[2025-04-27 09:13] LABS: Macrocytosis 2+; Microcytosis 1+
[2025-05-04 08:22] LABS: Abs Immature Grans 0.02 10^3/uL (0.0-0.06); HCT 23.3 % (36.0-46.0); HGB 7.5 g/dL (11.2-15.7); Immature Grans % 0.6 %; MCH 34.1 pg (27.0-33.0); MCHC 32.2 % (32.0-36.0); MCV 106 fL (80-95); RBC 2.20 10^6/uL (3.93-5.22); RDW 17.0 % (11.7-14.6); RDW-SD 65.0 fL; WBC 3.20 10^3/uL (4.4-10.8)
[2025-05-04 08:35] LABS: Macrocytosis 2+; Platelet Count 54 10^3/uL (130-400)
[2025-05-04 09:17] VITALS: BP 134/76; PULSE 65; RESP 19; TEMP 36.1; O2SAT 95
[2025-05-04 09:32] VITALS: BP 121/76; PULSE 64; RESP 18; TEMP 36.4; O2SAT 94
[2025-05-04] MEDS: Normal Saline Flush 10 ML SYR IVP (09:39)
[2025-05-04 09:52] VITALS: BP 111/46; PULSE 63; RESP 19; TEMP 36; O2SAT 97
[2025-05-04 10:25] VITALS: BP 115/71; PULSE 56; RESP 18; TEMP 35.8; O2SAT 97
[2025-05-04 11:07] VITALS: BP 136/78; PULSE 68; RESP 19; TEMP 36; O2SAT 94
[2025-05-11 07:46] LABS: Abs Immature Grans 0.01 10^3/uL (0.0-0.06); HCT 25.2 % (36.0-46.0); HGB 8.3 g/dL (11.2-15.7); Immature Grans % 0.3 %; MCH 33.9 pg (27.0-33.0); MCHC 32.9 % (32.0-36.0); MCV 103 fL (80-95); RBC 2.45 10^6/uL (3.93-5.22); RDW 17.7 % (11.7-14.6); RDW-SD 66.2 fL; WBC 3.53 10^3/uL (4.4-10.8)
[2025-05-11 08:12] LABS: Hypochromasia 1+; Platelet Count 59 10^3/uL (130-400)
[2025-05-18 08:45] LABS: Abs Immature Grans 0.01 10^3/uL (0.0-0.06); HCT 25.5 % (36.0-46.0); HGB 8.1 g/dL (11.2-15.7); Immature Grans % 0.3 %; MCH 33.2 pg (27.0-33.0); MCHC 31.8 % (32.0-36.0); MCV 105 fL (80-95); RBC 2.44 10^6/uL (3.93-5.22); RDW 18.3 % (11.7-14.6); RDW-SD 69.3 fL; WBC 3.43 10^3/uL (4.4-10.8)
[2025-05-18 09:00] LABS: Platelet Count 57 10^3/uL (130-400)
[2025-05-18 09:01] LABS: RBC Morphology Normal
[2025-05-25] MEDS: Normal Saline Flush 10 ML SYR IVP (08:25)
[2025-05-25 08:36] LABS: Abs Immature Grans 0.02 10^3/uL (0.0-0.06); HCT 23.0 % (36.0-46.0); HGB 7.2 g/dL (11.2-15.7); Immature Grans % 0.5 %; MCH 33.2 pg (27.0-33.0); MCHC 31.3 % (32.0-36.0); MCV 106 fL (80-95); RBC 2.17 10^6/uL (3.93-5.22); RDW 18.6 % (11.7-14.6); RDW-SD 70.3 fL; WBC 3.80 10^3/uL (4.4-10.8)
[2025-05-25 09:29] LABS: Anisocytosis 2+; Platelet Count 56 10^3/uL (130-400)
[2025-05-25 09:30] LABS: Hypochromasia 1+; Macrocytosis 1+; Microcytosis 1+; Polychromasia Present; Schistocytes 1+
[2025-05-25 09:41] VITALS: BP 103/55; PULSE 63; RESP 18; TEMP 37; O2SAT 95
[2025-05-25 09:56] VITALS: BP 115/47; PULSE 55; RESP 18; TEMP 37; O2SAT 94
[2025-05-25 10:15] VITALS: BP 103/43; PULSE 58; RESP 18; TEMP 36.3; O2SAT 96
[2025-05-25 10:26] VITALS: BP 102/64; PULSE 60; RESP 18; TEMP 36.8; O2SAT 92
[2025-05-25 11:26] VITALS: BP 115/57; PULSE 61; RESP 18; TEMP 36.8; O2SAT 95
== END 2025-05-27 23:59 | disposition home or self-care (01) ==
LOC: INF 08:30
PROVIDERS: PCP Family Medicine; Visit Provider Nurse Practitioner Family
DX: D64.9 Anemia, unspecified (principal)
CPT/HCPCS: 36415; 36430; 86850; 86900; 86901; 86920; 85025; P9016

== ENCOUNTER → 2025-06-14 02:09 | Outpatient (CLI) | payer MEDICARE, BC, SELFPAY ==
--- NOTE | 2025-06-14 07:15 | DI.MRI_ITS ---
Exam(s) MR LUMBAR SPINE WO EXAM: MR LUMBAR SPINE WO CLINICAL HISTORY: pain,lumbar radiculitis,spinal stenosis,lumbar post laminectomy syndrome. TECHNIQUE: Multiplanar multisequence MRI of the Lumbar spine was performed. COMPARISON: MR MR LUMBAR SPINE WO from 12/29/[address] CHEST/ABD/PEL W from 04/04/2025 Prior lumbar spine MRI 12/29/2020 also reviewed FINDINGS: Again noted is posterior spinal fusion hardware from L4 through S1 with 1 cm anterior listhesis of L 4 upon L5 again noted and milder amount of anterolisthesis of L5 upon S1 also again evident. There is an intervertebral disc space device at the L4-5 level again noted. The posterior aspect of this device is flush with the posterior cortex of L4. With respect to the uppermost bilateral intrapedicular screws at the L4 level, the distal aspect of these screws are not intraosseous but instead are in the lateral aspects of the L3-4 disc space, similar to previous Bones:There are no compression fractures evident. However, there has been significant change in the signal throughout the lumbar and visualized lower thoracic vertebrae which are now diffusely and almost homogeneously hypointense on both T1 and T2 sequences but without increased signal on STIR images. This most probably reflects marrow conversion/diffuse hemopoietic marrow hyperplasia. There are no compression fractures evident. Benign intraosseous hemangioma partly included on the uppermost sagittal images in the T10 vertebral body. Conus medullaris is at normal T12-L1 level. There is no evidence of conus mass nor subjacent clumping of intrathecal nerve roots to suggest arachnoiditis. The distal thecal sac appears unremarkable.There is no evidence of Tarlov intrasacral cysts nor other significant findings within the sacral canal With respect to the individual disc space levels... T11-T12: Broad relatively symmetrical annular bulging. Central canal dimensions are lower normal. No significant foraminal stenosis. T12-L1: Prominent symmetrical annular bulging. No distinct focal disc herniation there is mild-moderate central canal stenosis related to the broad annular bulging, short AP dimensions the pedicles and some bilateral facet arthropathy. Mild bilateral foraminal stenosis. L1-2: Again noted is chronic advanced disc space narrowing and anterior osteophytes. Posteriorly there is posterior bony ridging and mild annular bulging, similar to previous.Mild central canal stenosis. Moderate foraminal stenosis on the right side. Mild foraminal stenosis on the left side. This is related to asymmetry in the amount of degenerative change in the facet joints. L2-3: This levelagain exhibits some degenerative mild retrolisthesis of L2 upon L3 and symmetrical diffuse annular bulging. Moderate-severe central spinal canal stenosis. There is severe foraminal stenosis on both sides again noted. There is bilateral moderate facet arthropathy. L3-4: There is advanced chronic disc space narrowing again noted.Broad annular bulging. Moderate-severe central spinal canal stenosis appears unchanged. There ismoderate-severe bilateral foraminal stenosis, left again more than right. There is artifact from the bilateral intrapedicular screws. L4-5: Artifact from the bilateral screws at this level also again noted. There is approximately 1 cm anterolisthesis of L4 upon L5 which is unchanged. There is severe central canal stenosis at this level noted related to the listhesis and degenerative changes. There is also bilateral vertical foraminal stenosis and this, together with the listhesis and exhibits impingement upon the exiting nerve roots bilaterally at this level with moderate-severe bilateral foraminal stenosis this, however, there is not appear to have progressed from the 2020 study L5-S1: Chronic the space narrowing. Artifact from the screws. Approximately 5 mm anterolisthesis L5 upon S1 again noted. Central canal dimensions are lower normal but there is again noted bilateral foraminal stenosis due to the disc height loss and listhesis, resulting in some impingement of the exiting bilateral nerve roots at this level Soft tissues: Atrophy of the posterior spinal musculature is again noted. There are cysts again noted in the kidneys, more numerous on the left side with the largest cyst in the left kidney measuring 3.2 cm. IMPRESSION: 1. Come here to the prior MRI scan of December 2020 there is again noted posterior fusion surgery from L4 through S1 with unchanged anterolisthesis of L4 upon L5 (1 cm) and unchanged anterolisthesis of L5 upon S1 (0.5 cm). 2. There is multilevel chronic degenerative disc disease and multilevel foraminal stenosis as discussed per individual level above but exhibiting minimal change from the MRI scan of 2020. 3. There is also multilevel bilateral foraminal stenosis, similar to previous. 4. There been significant change in the marrow signal throughout the lumbar spine and partially visualized lower thoracic vertebrae. The previously present T1 marrow signal has been mostly replaced with relatively homogeneous hypointensity and with similar finding on the T2 images (no STIR bright foci). The relatively homogeneous nature of this marrow changes more in keeping with diffuse hematopoietic marrow hyperplasia (such as seen in anemia another causes), as opposed to diffuse metastatic disease or multiple myeloma, particularly since there are no stir bright marrow findings nor compression fractures. DATA REPOSITORY:
== END ==
LOC: DI 02:09
PROVIDERS: PCP Family Medicine; Visit Provider Anesthesiology Pain Medicine
DX: M96.1 Postlaminectomy syndrome, not elsewhere classified (principal); M48.062 Spinal stenosis, lumbar region with neurogenic claudication; M54.16 Radiculopathy, lumbar region
CPT/HCPCS: 72148

== ENCOUNTER 2025-06-22 02:01 | Outpatient (RCR) | payer MEDICARE, BC, SELFPAY ==
[2025-06-01 08:40] LABS: Abs Immature Grans 0.01 10^3/uL (0.0-0.06); HCT 25.1 % (36.0-46.0); HGB 8.1 g/dL (11.2-15.7); Immature Grans % 0.3 %; MCH 32.7 pg (27.0-33.0); MCHC 32.3 % (32.0-36.0); MCV 101 fL (80-95); RBC 2.48 10^6/uL (3.93-5.22); RDW 18.6 % (11.7-14.6); RDW-SD 69.2 fL; WBC 3.54 10^3/uL (4.4-10.8)
[2025-06-01 09:02] LABS: Platelet Count 60 10^3/uL (130-400); RBC Morphology Normal
[2025-06-08] MEDS: Normal Saline Flush 10 ML SYR IVP (08:44)
[2025-06-08 08:52] LABS: Abs Immature Grans 0.02 10^3/uL (0.0-0.06); HCT 22.6 % (36.0-46.0); HGB 7.4 g/dL (11.2-15.7); Immature Grans % 0.7 %; MCH 33.5 pg (27.0-33.0); MCHC 32.7 % (32.0-36.0); MCV 102 fL (80-95); RBC 2.21 10^6/uL (3.93-5.22); RDW 19.3 % (11.7-14.6); RDW-SD 71.8 fL; WBC 3.02 10^3/uL (4.4-10.8)
[2025-06-08 09:28] LABS: Platelet Count 52 10^3/uL (130-400)
[2025-06-08 10:09] VITALS: BP 131/78; PULSE 57; RESP 18; TEMP 35.5; TEMP 36.5; O2SAT 94
[2025-06-08 10:25] VITALS: BP 105/57; PULSE 65; RESP 19; TEMP 36; O2SAT 97
[2025-06-08 10:40] VITALS: BP 109/64; PULSE 66; RESP 18; TEMP 36.3; O2SAT 97
[2025-06-08 11:10] VITALS: BP 102/55; PULSE 64; RESP 18; TEMP 36.5; O2SAT 94
[2025-06-08 12:10] VITALS: BP 113/67; PULSE 62; RESP 18; TEMP 36.6; O2SAT 95
[2025-06-15 08:36] LABS: Abs Immature Grans 0.02 10^3/uL (0.0-0.06); HCT 23.7 % (36.0-46.0); HGB 7.8 g/dL (11.2-15.7); Immature Grans % 0.6 %; MCH 32.4 pg (27.0-33.0); MCHC 32.9 % (32.0-36.0); MCV 98 fL (80-95); RBC 2.41 10^6/uL (3.93-5.22); RDW 20.4 % (11.7-14.6); RDW-SD 72.7 fL; WBC 3.33 10^3/uL (4.4-10.8)
[2025-06-15 09:03] LABS: Platelet Count 54 10^3/uL (130-400)
[2025-06-15 09:04] LABS: Anisocytosis 2+
[2025-06-16] VITALS (10 sets, daily range): BP systolic 112–136; BP diastolic 48–80; PULSE 56–66; RESP 18–19; TEMP 36.4–36.6; O2SAT 93–98
[2025-06-16] MEDS: Normal Saline Flush 10 ML SYR IVP (10:31)
[2025-06-22 08:31] LABS: Abs Immature Grans 0.02 10^3/uL (0.0-0.06); HCT 26.9 % (36.0-46.0); HGB 8.7 g/dL (11.2-15.7); Immature Grans % 0.6 %; MCH 31.3 pg (27.0-33.0); MCHC 32.3 % (32.0-36.0); MCV 97 fL (80-95); RBC 2.78 10^6/uL (3.93-5.22); RDW 19.2 % (11.7-14.6); RDW-SD 67.1 fL; WBC 3.47 10^3/uL (4.4-10.8)
[2025-06-22 08:53] LABS: Platelet Count 47 10^3/uL (130-400)
[2025-06-22 08:54] LABS: RBC Morphology Normal
== END 2025-06-26 23:59 | disposition home or self-care (01) ==
LOC: INF 02:01
PROVIDERS: Internal Medicine Hematology & Oncology; PCP Family Medicine; Visit Provider Nurse Practitioner Family
DX: D64.9 Anemia, unspecified (principal)
CPT/HCPCS: 36415; 36430; 82668; 86850; 86900; 86901; 86920; 85025; 86644; P9016

== ENCOUNTER 2025-07-18 11:00 | Outpatient (RCR) | payer MEDICARE, BC, SELFPAY ==
[2025-06-29 08:25] VITALS: BP 144/46; PULSE 75; RESP 18; TEMP 37; O2SAT 96
[2025-06-29 08:51] LABS: HCT 25.0 % (36.0-46.0); HGB 8.1 g/dL (11.2-15.7); MCH 31.6 pg (27.0-33.0); MCHC 32.4 % (32.0-36.0); MCV 98 fL (80-95); RBC 2.56 10^6/uL (3.93-5.22); RDW 19.7 % (11.7-14.6); RDW-SD 68.9 fL; WBC 3.42 10^3/uL (4.4-10.8)
[2025-06-29 09:16] LABS: Platelet Count 56 10^3/uL (130-400)
[2025-06-29] MEDS: Normal Saline Flush 10 ML SYR IVP (09:40)
[2025-06-29 10:05] VITALS: BP 110/69; PULSE 66; RESP 19; TEMP 36.3; O2SAT 96
[2025-06-29 10:20] VITALS: BP 119/72; PULSE 72; RESP 18; TEMP 36.7; O2SAT 95
[2025-06-29 10:35] VITALS: BP 95/32; PULSE 70; RESP 18; TEMP 36.5; O2SAT 94
[2025-06-29 11:02] LABS: Abs Immature Grans 0.01 10^3/uL (0.0-0.06); Immature Grans % 0.3 %
[2025-06-29 11:05] VITALS: BP 97/64; PULSE 82; RESP 18; TEMP 36.6; O2SAT 93
[2025-06-29 11:53] VITALS: BP 104/48; PULSE 73; RESP 18; TEMP 36.5; O2SAT 96
[2025-07-06] MEDS: Normal Saline Flush 10 ML SYR IVP (08:32)
[2025-07-06 08:38] LABS: HCT 25.9 % (36.0-46.0); HGB 8.5 g/dL (11.2-15.7); MCH 31.7 pg (27.0-33.0); MCHC 32.8 % (32.0-36.0); MCV 97 fL (80-95); Platelet Count 57 10^3/uL (130-400); RBC 2.68 10^6/uL (3.93-5.22); RDW 18.8 % (11.7-14.6); RDW-SD 65.9 fL; WBC 3.38 10^3/uL (4.4-10.8)
[2025-07-06 09:03] LABS: Immature Grans % 0.0 %
[2025-07-06 09:04] LABS: RBC Morphology Normal
[2025-07-06 09:09] LABS: Abs Immature Grans 0.00 10^3/uL (0.0-0.06)
[2025-07-13 08:58] LABS: Abs Immature Grans 0.02 10^3/uL (0.0-0.06); HCT 24.4 % (36.0-46.0); HGB 8.0 g/dL (11.2-15.7); Immature Grans % 0.5 %; MCH 31.9 pg (27.0-33.0); MCHC 32.8 % (32.0-36.0); MCV 97 fL (80-95); RBC 2.51 10^6/uL (3.93-5.22); RDW 19.2 % (11.7-14.6); RDW-SD 68.0 fL; WBC 3.65 10^3/uL (4.4-10.8)
[2025-07-13 09:21] LABS: Platelet Count 55 10^3/uL (130-400)
[2025-07-13 09:22] LABS: Anisocytosis 2+
[2025-07-13 10:40] VITALS: BP 146/79; PULSE 66; RESP 18; TEMP 36.4; O2SAT 99
[2025-07-13 10:55] VITALS: BP 117/63; PULSE 61; RESP 16; TEMP 36.4; O2SAT 97
[2025-07-13] MEDS: Normal Saline Flush 10 ML SYR IVP (10:56)
[2025-07-13 11:15] VITALS: BP 123/60; PULSE 62; RESP 16; TEMP 36.3; O2SAT 94
[2025-07-13 11:51] VITALS: BP 137/73; PULSE 66; RESP 16; TEMP 36.3; O2SAT 96
[2025-07-13 12:56] VITALS: BP 145/78; PULSE 73; RESP 16; TEMP 36.4; O2SAT 96
[2025-07-18] VITALS (10 sets, daily range): BP systolic 109–158; BP diastolic 47–94; PULSE 57–75; RESP 18–19; TEMP 36–36.8; O2SAT 94–100
[2025-07-18 10:15] LABS: Abs Immature Grans 0.01 10^3/uL (0.0-0.06); HCT 24.9 % (36.0-46.0); HGB 7.9 g/dL (11.2-15.7); Immature Grans % 0.3 %; MCH 30.3 pg (27.0-33.0); MCHC 31.7 % (32.0-36.0); MCV 95 fL (80-95); RBC 2.61 10^6/uL (3.93-5.22); RDW 19.3 % (11.7-14.6); RDW-SD 67.6 fL; WBC 3.05 10^3/uL (4.4-10.8)
[2025-07-18 10:24] LABS: Anisocytosis 2+; Platelet Count 52 10^3/uL (130-400)
[2025-07-18] MEDS: Normal Saline Flush 10 ML SYR IVP (14:17)
== END 2025-07-27 23:59 | disposition home or self-care (01) ==
LOC: INF 11:00
PROVIDERS: Internal Medicine Hematology & Oncology; PCP Family Medicine; Visit Provider Nurse Practitioner Family
DX: D46.9 Myelodysplastic syndrome, unspecified (principal); Z45.2 Encounter for adjustment and management of vascular access device
CPT/HCPCS: 36430; 36591; 85027; 86850; 86900; 86901; 86920; 85007; 85025; 86644; P9016